=== PATIENT | female | born 1955 | race Caucasian/White ===

== ENCOUNTER 2020-06-26 09:39 | Outpatient (REF) | payer MEDICARE, SELFPAY ==
[2020-06-26 12:04] LABS: Basophils Absolute Auto 0.1 X10*3/uL (0.0-0.2); Basophils Percent Auto 1.1 % (0-2); Imm Gran Abs Auto 0.02 X10*3/uL (0.00-0.03); Imm Gran Pct Auto 0.3 % (0.0-0.4); MANUAL DIFF FLAG SCAN; Monocytes Percent Auto 7.4 % (2-11); Red Blood Count 4.64 X10*6/uL (4.20-5.50); Red Cell Distribution Width 12.9 % (11.0-16.0); SCAN SMEAR FLAG 1
[2020-06-26 12:06] LABS: Eosinophils Absolute Auto 0.8 X10*3/uL (0.0-0.4); Eosinophils Percent Auto 10.8 % (0-4); Hematocrit 40.1 % (37-47); Hemoglobin 13.5 g/dl (12.0-16.0); Lymphocytes Absolute Auto 1.4 X10*3/uL (1.2-4.9); Mean Corpuscular HGB Conc 33.7 g/dl (31.0-35.0); Mean Corpuscular Hemoglobin 29.1 pg (27.0-33.0); Mean Corpuscular Volume 86.4 fL (80-98); Monocytes Absolute Auto 0.6 X10*3/uL (0.1-1.2); Neutrophils Absolute Auto 4.6 X10*3/uL (2.0-8.3); Neutrophils Percent Auto 61.4 % (45-73); PLT CLUMP 1
[2020-06-26 12:15] LABS: PLT ABN DIST 1
[2020-06-26 12:26] LABS: White Blood Count 7.4 X10*3/uL (4.8-10.8)
[2020-06-26 12:29] LABS: SLIDE REVIEW VERIFIED
[2020-06-26 12:36] LABS: Alanine Aminotransferase 120 U/L (0-31); Alkaline Phosphatase 209 U/L (39-117); Anion Gap 13 (12-20); Aspartate Amino Transferase 121 U/L (5-31); Bilirubin Total 0.9 mg/dL (0.0-1.0); Blood Urea Nitrogen 18 mg/dL (9-16); Calcium 9.5 mg/dL (8.4-10.2); Carbon Dioxide 30 mmol/L (22-29); Chloride 100 mmol/L (96-108); Cholesterol 153 mg/dL; Estimated Glomerular Filt Rate > 60; Glucose Fasting 181 mg/dL (60-99); HDL Cholesterol 57 mg/dL; LDL Cholesterol Calculated 83 mg/dl; Potassium 4.2 mmol/l (3.3-5.1); Sodium 139 mmol/L (135-145); Total Protein 7.8 g/dL (6.5-8.0); Triglycerides 66 mg/dL
[2020-06-26 12:50] LABS: Free T4 (Free Thyroxine) 1.34 ng/dL (0.71-1.85); Thyroid Stimulating Hormone 2.54 uIU/mL (0.32-4.0)
[2020-06-26 12:58] LABS: Glucose Urine UA NEG (NEG); Leukocyte Esterase Urine TRACE (NEG); Nitrite Urine NEG (NEG); PH 5.5 (5.0-8.0); Specific Gravity - Urine >= 1.030 (1.005-1.025); Urine Blood NEG (NEG); Urine Ketones NEG (NEG); Urine Protein NEG (NEG-TRACE)
[2020-06-26 13:02] LABS: Appearance Urine CLOUDY; Color Urine YELLOW
[2020-06-26 13:08] LABS: RBC Urine 0-2 /HPF (0)
[2020-06-26 13:09] LABS: Bacteria Urine 1+ /LPF; Mucus Urine 3+ /LPF; Squamous Epithelial Cell Urine 3+ /LPF
[2020-06-26 13:13] LABS: Estimated Average Glucose 151 mg/dL; Hemoglobin A1C 175.1667 umol/L; Hemoglobin A1c % 6.9 %
[2020-06-26 13:18] LABS: Creatinine Urine 220.07 mg/dL; Microalbum/Creatinine Ratio Ur 7.2 ug/mg cr
== END 2020-06-26 09:40 | disposition home or self-care (01) ==
LOC: HO.LAB 09:39
PROVIDERS: PCP Internal Medicine; Visit Provider Internal Medicine Endocrinology, Diabetes & Metabolism
DX: E11.65 Type 2 diabetes mellitus with hyperglycemia (principal); I10 Essential (primary) hypertension; E66.9 Obesity, unspecified; E03.9 Hypothyroidism, unspecified; E78.5 Hyperlipidemia, unspecified; Z79.4 Long term (current) use of insulin
CPT/HCPCS: 36415; 80053; 80061; 81001; 82043; 82947; 83036; 84439; 84443; 85025; 87086; 99212

== ENCOUNTER → 2020-07-07 13:34 | Outpatient (BNVA) | payer MEDICARE, SELFPAY | PROVIDERS: PCP Internal Medicine; Referring Provider Internal Medicine; Visit Provider Nurse Practitioner | DX: R79.89 Other specified abnormal findings of blood chemistry (principal); K59.00 Constipation, unspecified; M54.9 Dorsalgia, unspecified; K21.9 Gastro-esophageal reflux disease without esophagitis; E11.9 Type 2 diabetes mellitus without complications; Z79.899 Other long term (current) drug therapy; Z79.4 Long term (current) use of insulin; Z79.891 Long term (current) use of opiate analgesic | CPT/HCPCS: Q3014 ==

== ENCOUNTER 2020-07-10 10:35 | Outpatient (REF) | payer MEDICARE, SELFPAY ==
--- NOTE | 2020-07-10 10:50 | XR_ITS ---
EXAMINATION: XR THORACIC SPINE XR LUMBAR SPINE CLINICAL INFORMATION: Dorsalgia. COMPARISON: 07/10/2017 x-ray lumbar spine CT abdomen pelvis 01/16/2020. TECHNIQUE: Thoracic spine 3 views. Lumbar spine 3 views. FINDINGS: Thoracic Spine: The upper thoracic vertebral bodies are obscured on the lateral projection by overlapping structures. The visualized thoracic spine, there is normal alignment without subluxation. There is anterior compression deformity of T10 vertebral body. This appears similar as compared to the prior CT of 01/16/2020. No acute fractures otherwise seen. Multilevel moderate disc degenerative changes in the thoracic spine. No focal consolidation the visualized lungs. Lumbar Spine: Stable mild retrolisthesis of L2 on L3.. Vertebral body heights are maintained. No evidence of acute compression deformity. Mild lumbar spondylosis, with endplate osteophytes, with the more prominent changes at T12-L1, L1-L2. XR/XR thoracic spine 2V IMPRESSION: 1. Chronic-appearing compression deformity of T10 vertebral body. 2. Multilevel moderate disc degenerative changes in the thoracic spine. 3. Lumbar spondylosis. No evidence of acute fracture.
--- NOTE | 2020-07-10 10:50 | XR_ITS ---
EXAMINATION: XR THORACIC SPINE XR LUMBAR SPINE CLINICAL INFORMATION: Dorsalgia. COMPARISON: 07/10/2017 x-ray lumbar spine CT abdomen pelvis 01/16/2020. TECHNIQUE: Thoracic spine 3 views. Lumbar spine 3 views. FINDINGS: Thoracic Spine: The upper thoracic vertebral bodies are obscured on the lateral projection by overlapping structures. The visualized thoracic spine, there is normal alignment without subluxation. There is anterior compression deformity of T10 vertebral body. This appears similar as compared to the prior CT of 01/16/2020. No acute fractures otherwise seen. Multilevel moderate disc degenerative changes in the thoracic spine. No focal consolidation the visualized lungs. Lumbar Spine: Stable mild retrolisthesis of L2 on L3.. Vertebral body heights are maintained. No evidence of acute compression deformity. Mild lumbar spondylosis, with endplate osteophytes, with the more prominent changes at T12-L1, L1-L2. XR/XR lumbar spine 2-3V IMPRESSION: 1. Chronic-appearing compression deformity of T10 vertebral body. 2. Multilevel moderate disc degenerative changes in the thoracic spine. 3. Lumbar spondylosis. No evidence of acute fracture.
[2020-07-10 11:55] LABS: Glucose Urine UA NEG (NEG); Leukocyte Esterase Urine NEG (NEG); Nitrite Urine NEG (NEG); Urine Blood NEG (NEG); Urine Ketones NEG (NEG); Urine Protein NEG (NEG-TRACE)
[2020-07-10 12:04] LABS: Appearance Urine CLEAR; Color Urine YELLOW
[2020-07-10 12:30] LABS: RBC Urine 0 /HPF (0); WBC Urine 0-2 /HPF (0-4)
[2020-07-10 12:31] LABS: Bacteria Urine 1+ /LPF; Mucus Urine 1+ /LPF; Squamous Epithelial Cell Urine 2+ /LPF
== END 2020-07-10 10:36 | disposition home or self-care (01) ==
LOC: HO.XRAY 10:35
PROVIDERS: PCP Internal Medicine; Visit Provider Nurse Practitioner
DX: M54.9 Dorsalgia, unspecified (principal); K21.9 Gastro-esophageal reflux disease without esophagitis
CPT/HCPCS: 72070; 72100; 81001

== ENCOUNTER 2020-07-11 11:46 | Emergency (ER) | payer MEDICARE, SELFPAY ==
[2020-07-11 11:57] VITALS: BP 106/74; PULSE 80; RESP 16; TEMP 35.7; O2SAT 99; BMI 32.3
--- NOTE | 2020-07-11 13:18 | ED_ITS ---
HPI - General Adult General Chief complaint: General Medical <JESUS Summers - Last Filed: 07/11/20 16:19> Stated complaint: kidney pain <JESUS Summers - Last Filed: 07/11/20 16:19> Time Seen by Provider: 07/11/20 13:14 <JESUS Summers - Last Filed: 07/11/20 16:19> Source: patient <JESUS Summers - Last Filed: 07/11/20 16:19> Mode of arrival: ambulatory <JESUS Summers - Last Filed: 07/11/20 16:19> History of Present Illness HPI narrative: 64-year-old female with a past medical history of GERD, constipation, elevated LFTs, hyperlipidemia, obesity, osteoarthritis, diabetes, hypertension c/o right-sided abdominal/flank pain x3 days with associated dysuria. Admits pain radiates from abdomen to right flank. Denies fever, chills, nausea/vomiting, constipation/diarrhea, suspicious food intake, recent travel <JESUS Summers - Last Filed: 07/11/20 16:19> Onset (ago): day(s) <JESUS Summers - Last Filed: 07/11/20 16:19> Related Data Home medications: Home Medications Medication Instructions Recorded Confirmed naproxen 500 mg tablet 500 mg PO BID 05/16/20 06/26/20 atorvastatin 20 mg tablet 20 mg PO DAILY 06/26/20 06/26/20 cetirizine 10 mg tablet 10 mg PO DAILY 06/26/20 06/26/20 doxepin 10 mg capsule 0 mg PO 06/26/20 06/26/20 escitalopram oxalate 10 mg tablet 10 mg PO DAILY 06/26/20 06/26/20 fluticasone propionate 50 1 spray INTRANASAL DAILY 06/26/20 06/26/20 mcg/actuation nasal spray,suspension gabapentin 300 mg capsule mg PO BID 06/26/20 06/26/20 hydroxyzine HCl 25 mg tablet mg PO 06/26/20 06/26/20 levothyroxine 150 mcg tablet 150 mcg PO DAILY 06/26/20 06/26/20 omeprazole 20 mg capsule,delayed 20 mg PO DAILY 06/26/20 07/07/20 release pen needle, diabetic 32 gauge x #50 ea 06/26/20 06/26/20/32 tramadol 50 mg tablet 50 mg PO BID PRN 06/26/20 06/26/20 dicyclomine 20 mg tablet 20 mg PO TID 07/07/20 07/07/20 lactulose 20 gram/30 mL oral 20 g PO TID 07/07/20 07/07/20 solution Previous Rx's Medication Instructions Recorded hydrochlorothiazide 25 mg tablet 25 mg PO DAILY 90 Days #90 tab 05/04/20 blood sugar diagnostic #300 ea 05/12/20 lancets 28 gauge #300 ea 05/12/20 diclofenac sodium 1 % topical gel 2 g TOPICAL QID 30 Days #100 g 06/06/20 dulaglutide 0.75 mg/0.5 mL 0.75 mg SUBCUT QWEEK 30 Days #2.5 06/26/20 subcutaneous pen injector ml insulin glargine U-300 conc 300 16 unit SUBCUT DAILY 30 Days #4.5 06/26/20 unit/mL (1.5 mL) subcutaneous pen ml metformin 500 mg tablet 500 mg PO BID 30 Days #60 tab 07/07/20 acetaminophen 650 mg 650 mg PO Q12H PRN 15 Days #30 tab 07/14/20 tablet,extended release carbamide peroxide 6.5 % ear drops 5 drp OTIC (EARS) Q12H 4 Days #15 07/14/20 ml cyclobenzaprine 10 mg tablet 10 mg PO BEDTIME 30 Days #30 tab 07/14/20 <JESUS Summers - Last Filed: 07/11/20 16:19> Allergies/adverse reactions: Allergies Allergy/AdvReac Type Severity Reaction Status Date / Time ciprofloxacin [CIPROFLOXACIN] Allergy Mild HIVES,RASH Verified 07/07/20 13:36 Penicillins [PENICILLINS] Allergy Mild RASH Verified 07/07/20 13:36 cephalexin [From KEFLEX] Allergy Unknown rash Verified 07/07/20 13:36 enalapril [ENALAPRIL] Allergy Unknown Cough Verified 07/07/20 13:36 levothyroxine sodium Allergy Unknown RASH WITH Verified 07/07/20 13:36 [LEVOTHYROXINE SODIUM] GENERIC MED nitrofurantoin Allergy Unknown RASH Verified 07/07/20 13:36 [NITROFURANTOIN] Sulfa (Sulfonamide Allergy Unknown RASH Verified 07/07/20 13:36 Antibiotics) [SULFA (SULFONAMIDE ANTIBIOTICS)] sulfamethoxazole Allergy Unknown rash Verified 07/07/20 13:36 [From BACTRIM] trimethoprim [From BACTRIM] Allergy Unknown rash Verified 07/07/20 13:36 ALL GENERIC MEDS Allergy Unknown UNKNOWN Uncoded 04/13/20 17:19 SHRIMP Allergy Unknown Unknown Uncoded 06/20/20 14:02 <JESUS Summers - Last Filed: 07/11/20 16:19> Review of Systems Review of Systems: Constitutional: No Weight loss, No Fever, No Chills Cardiovascular: No Chest Pain, No SOB Respiratory: No Cough, No Sputum Gastrointestinal: No Nausea, No Vomiting, No Diarrhea, No Constipation, + Abdominal pain Genitourinary: No irregular bleeding, + Dysuria, No Urinary Frequency, No Hematuria, + Flank Pain Musculoskeletal: No joint pain, No Myalgias, No Joint Swelling Skin: No Skin Lesions, No rash <JESUS Summers - Last Filed: 07/11/20 16:19> Yes all other systems are reviewed and are negative <JESUS Summers - Last Filed: 07/11/20 16:19> [facility] Past Medical History Attestation statement: The following information was validated with the patient. <JESUS Summers - Last Filed: 07/11/20 16:19> Medical History: Medical History (Updated 07/15/20 @ 20:56 by Cee Moses NP) Abnormal laboratory test result Diabetes type 2, uncontrolled Dyslipidemia Essential hypertension Hypertension senior living (current) use of insulin Lower back pain Obesity (BMI 30-39.9) <JESUS Summers - Last Filed: 07/11/20 16:19> Surgical History: Surgical History (Updated 07/07/20 @ 13:36 by DOM Perera) H/O thyroidectomy History of bladder surgery History of cholecystectomy History of esophagogastroduodenoscopy (EGD) Hx of colonoscopy <JESUS Summers - Last Filed: 07/11/20 16:19> Family History Family History: Family History (Updated 06/20/20 @ 14:04 by DOM Timmons) Father No problems noted. Mother No problems noted. Sister Lung cancer Brother H/O heart surgery Son Epilepsy <JESUS Summers - Last Filed: 07/11/20 16:19> Social History Social History: Social History (Updated 07/07/20 @ 13:37 by [facility]) Alcohol intake: current Alcohol intake frequency: does not drink Smoking Status: Never smoker <JESUS Summers - Last Filed: 07/11/20 16:19> Physical Exam Vital Signs: Vital Signs: Last Vital Signs Temp 99.7 F 07/11/20 14:11 Pulse 72 07/11/20 15:29 Resp 16 07/11/20 15:29 BP 147/67 H 07/11/20 15:29 Pulse Ox 97 07/11/20 15:29 Body Mass Index 32.3 <JESUS Summers - Last Filed: 07/11/20 16:19> Vital Signs: Last Vital Signs Temp 99.7 F 07/11/20 14:11 Pulse 72 07/11/20 15:29 Resp 16 07/11/20 15:29 BP 147/67 H 07/11/20 15:29 Pulse Ox 97 07/11/20 15:29 Body Mass Index 32.3 <Chapin Lawrence MD - Last Filed: 07/23/20 13:59> Const: General: cooperative and healthy appearing <JESUS Summers - Last Filed: 07/11/20 16:19> Orientation/consciousness: patient oriented x3 <JESUS Summers - Last Filed: 07/11/20 16:19> Limitations: no limitations <JESUS Summers - Last Filed: 07/11/20 16:19> HENMT: Head: Yes normal to inspection <JESUS Summers - Last Filed: 07/11/20 16:19> Ears: hearing grossly normal bilaterally <JESUS Summers - Last Filed: 07/11/20 16:19> General nose exam: Normal external nose present <JESUS Summers - Last Filed: 07/11/20 16:19> Face and sinus: Yes normal facial exam <JESUS Summers - Last Filed: 07/11/20 16:19> Eyes: General: appearance normal, both eyes and all related structures <JESUS Summers - Last Filed: 07/11/20 16:19> EOM: EOMs intact bilaterally <Kaylyn [facility] [place] - Last Filed: 07/11/20 16:19> Neck: Neck: Yes normal visual inspection <Kaylyn [facility] [place] - Last Filed: 07/11/20 16:19> Resp: Effort & Inspection: normal respiratory effort <Kaylyn Andrez, PA - Last Filed: 07/11/20 16:19> Cardio: Rate: regular rate <Kaylyn [facility] [place] - Last Filed: 07/11/20 16:19> GI: Inspection: Yes normal to inspection <Kaylyn [facility] - Last Filed: 07/11/20 16:19> Palpation (GI): Soft to palpation, Tenderness to palpation present (GI) (and lower abdomen ) in the RLQ, in the LUQ and in the RUQ; with no rebound tenderness, no guarding and not rigid <Kaylyn Andrez, PA - Last Filed: 07/11/20 16:19> : General: Yes CVA tenderness bilateral <Kaylyn [facility] [place] - Last Filed: 07/11/20 16:19> Skin: Rashes: no rashes <Kaylyn [facility] [place] - Last Filed: 07/11/20 16:19> Wounds: no wounds <Kaylyn Andrez, PA - Last Filed: 07/11/20 16:19> Neuro: General: patient oriented x3 <Kay[facility] [place] - Last Filed: 07/11/20 16:19> Gait exam (Neuro): Normal gait present <Kaylyn [facility] [place] - Last Filed: 07/11/20 16:19> Extrem: General: Yes normal to inspection <Kaylyn [facility] - Last Filed: 07/11/20 16:19> Course Course Course Narrative: * Labs notable for chronically elevated AST/ALT, otherwise unremarkable, UA negative * Process to identify cause of patient's symptoms. Small foci of air within the urinary bladder from uncertain etiology. > this was discussed with patient with healthcare interpreter. Denies recent or history of catheterization, recent trauma/injury, recent surgery, peeing feces, or sputtering/peeing air > will have patient follow-up with Urology, and GI * Worrisome signs and symptoms and strict return precautions discussed with patient with healthcare interpreter. She verbalized understanding feel safe for discharge home <JESUS Summers - Last Filed: 07/11/20 16:19> I have reviewed the chart <Chapin Lawrence MD - Last Filed: 07/23/20 13:59> Medical Decision Making MDM Narrative Medical decision making narrative: 64-year-old female with a past medical history of GERD, constipation, elevated LFTs, hyperlipidemia, obesity, osteoarthritis, diabetes, hypertension c/o right-sided abdominal/flank pain x3 days with associated dysuria. On exam VSS, NAD/well-appearing, abdomen soft with tenderness in RUQ/RLQ/LUQ and bilateral CVAT. Concern for appendicitis/liver disease vs pancreatitis/renal stone/pyelo vs UTI. Lower concern for diverticulitis Plan: Labs, UA, CT AP, IVF, reassess <JESUS Summers - Last Filed: 07/11/20 16:19> Lab Data Result diagrams: : 07/11/20 13:28 07/11/20 13:28 <JESUS Summers - Last Filed: 07/11/20 16:19> Labs: Lab Results 07/11/20 07/11/20 07/11/20 Range/Units 13:28 13:28 13:28 WBC 7.1 (4.8-10.8) X10*3/uL RBC 4.70 (4.20-5.50) X10*6/uL Hgb 13.6 (12.0-16.0) g/dl Hct 40.2 (37-47) % MCV 85.5 (80-98) fL MCH 28.9 (27.0-33.0) pg MCHC 33.8 (31.0-35.0) g/dl RDW 12.6 (11.0-16.0) % Plt Count 235 (160-400) X10*3/uL MPV 12.8 H (9.4-12.3) fL Immature Gran % (Auto) 0.3 (0.0-0.4) % Neut % (Auto) 48.3 (45-73) % Lymph % (Auto) 36.0 (20-40) % [place] % (Auto) 9.5 (2-11) % Eos % (Auto) 4.8 H (0-4) % Baso % (Auto) 1.1 (0-2) % Lymph # (Auto) 2.6 (1.2-4.9) X10*3/uL [place] # (Auto) 0.7 (0.1-1.2) X10*3/uL Eos # (Auto) 0.3 (0.0-0.4) X10*3/uL Baso # (Auto) 0.1 (0.0-0.2) X10*3/uL Abs Immat Gran (auto) 0.02 (0.00-0.03) X10*3/uL Absolute Neuts (auto) 3.4 (2.0-8.3) X10*3/uL Absolute Nucleated RBC 0.000 (0.0-0.012) X10*3/uL Nucleated RBC % (auto) 0.0 (0.0-0.2) /100WBC Hold Blue Top SEE NOTE Sodium 140 (135-145) mmol/L Potassium 3.9 (3.3-5.1) mmol/l Chloride 101 (96-108) mmol/L Carbon Dioxide 30 H (22-29) mmol/L Anion Gap 13 (12-20) BUN 20 H (9-16) mg/dL Creatinine 0.83 (0.5-1.4) mg/dL Estim Creat Clear Calc 76.6 Estimated GFR > 60 Random Glucose 102 (60-115) mg/dL Calcium 9.2 (8.4-10.2) mg/dL Magnesium (1.6-2.6) mg/dL Total Bilirubin 0.6 (0.0-1.0) mg/dL Direct Bilirubin 0.3 (0.0-0.5) mg/dL AST 66 H (5-31) U/L ALT 62 H (0-31) U/L Alkaline Phosphatase 243 H (39-117) U/L Total Protein 8.2 H (6.5-8.0) g/dL Albumin 4.3 (3.5-5.0) g/dL Lipase 33 (8-78) U/L Urine Color Urine Appearance Urine pH (5.0-8.0) Ur Specific [place] (1.005-1.025) Urine Protein (NEG-TRACE) MG/DL Urine Glucose (UA) (NEG) MG/DL Urine Ketones (NEG) MG/DL Urine Blood (NEG) Urine Nitrite (NEG) Ur Leukocyte Esterase (NEG) SARS-CoV-2 (PCR) (NOT DETECTED) 07/11/20 07/11/20 07/11/20 Range/Units 13:28 13:33 16:44 WBC (4.8-10.8) X10*3/uL RBC (4.20-5.50) X10*6/uL Hgb (12.0-16.0) g/dl Hct (37-47) % MCV (80-98) fL MCH (27.0-33.0) pg MCHC (31.0-35.0) g/dl RDW (11.0-16.0) % Plt Count (160-400) X10*3/uL MPV (9.4-12.3) fL Immature Gran % (Auto) (0.0-0.4) % Neut % (Auto) (45-73) % Lymph % (Auto) (20-40) % [place] % (Auto) (2-11) % Eos % (Auto) (0-4) % Baso % (Auto) (0-2) % Lymph # (Auto) (1.2-4.9) X10*3/uL [place] # (Auto) (0.1-1.2) X10*3/uL Eos # (Auto) (0.0-0.4) X10*3/uL Baso # (Auto) (0.0-0.2) X10*3/uL Abs Immat Gran (auto) (0.00-0.03) X10*3/uL Absolute Neuts (auto) (2.0-8.3) X10*3/uL Absolute Nucleated RBC (0.0-0.012) X10*3/uL Nucleated RBC % (auto) (0.0-0.2) /100WBC Hold Blue Top Sodium (135-145) mmol/L Potassium (3.3-5.1) mmol/l Chloride (96-108) mmol/L Carbon Dioxide (22-29) mmol/L Anion Gap (12-20) BUN (9-16) mg/dL Creatinine (0.5-1.4) mg/dL Estim Creat Clear Calc Estimated GFR Random Glucose (60-115) mg/dL Calcium (8.4-10.2) mg/dL Magnesium 1.8 (1.6-2.6) mg/dL Total Bilirubin (0.0-1.0) mg/dL Direct Bilirubin (0.0-0.5) mg/dL AST (5-31) U/L ALT (0-31) U/L Alkaline Phosphatase (39-117) U/L Total Protein (6.5-8.0) g/dL Albumin (3.5-5.0) g/dL Lipase (8-78) U/L Urine Color YELLOW Urine Appearance CLEAR Urine pH 6.5 (5.0-8.0) Ur Specific [place] 1.015 (1.005-1.025) Urine Protein NEG (NEG-TRACE) MG/DL Urine Glucose (UA) NEG (NEG) MG/DL Urine Ketones NEG (NEG) MG/DL Urine Blood NEG (NEG) Urine Nitrite NEG (NEG) Ur Leukocyte Esterase NEG (NEG) SARS-CoV-2 (PCR) NOT DETECTED (NOT DETECTED) <JESUS Summers - Last Filed: 07/11/20 16:19> Lab Results 07/11/20 07/11/20 07/11/20 Range/Units 13:28 13:28 13:28 WBC 7.1 (4.8-10.8) X10*3/uL RBC 4.70 (4.20-5.50) X10*6/uL Hgb 13.6 (12.0-16.0) g/dl Hct 40.2 (37-47) % MCV 85.5 (80-98) fL MCH 28.9 (27.0-33.0) pg MCHC 33.8 (31.0-35.0) g/dl RDW 12.6 (11.0-16.0) % Plt Count 235 (160-400) X10*3/uL MPV 12.8 H (9.4-12.3) fL Immature Gran % (Auto) 0.3 (0.0-0.4) % Neut % (Auto) 48.3 (45-73) % Lymph % (Auto) 36.0 (20-40) % [place] % (Auto) 9.5 (2-11) % Eos % (Auto) 4.8 H (0-4) % Baso % (Auto) 1.1 (0-2) % Lymph # (Auto) 2.6 (1.2-4.9) X10*3/uL [place] # (Auto) 0.7 (0.1-1.2) X10*3/uL Eos # (Auto) 0.3 (0.0-0.4) X10*3/uL Baso # (Auto) 0.1 (0.0-0.2) X10*3/uL Abs Immat Gran (auto) 0.02 (0.00-0.03) X10*3/uL Absolute Neuts (auto) 3.4 (2.0-8.3) X10*3/uL Absolute Nucleated RBC 0.000 (0.0-0.012) X10*3/uL Nucleated RBC % (auto) 0.0 (0.0-0.2) /100WBC Hold Blue Top SEE NOTE Sodium 140 (135-145) mmol/L Potassium 3.9 (3.3-5.1) mmol/l Chloride 101 (96-108) mmol/L Carbon Dioxide 30 H (22-29) mmol/L Anion Gap 13 (12-20) BUN 20 H (9-16) mg/dL Creatinine 0.83 (0.5-1.4) mg/dL Estim Creat Clear Calc 76.6 Estimated GFR > 60 Random Glucose 102 (60-115) mg/dL Calcium 9.2 (8.4-10.2) mg/dL Magnesium (1.6-2.6) mg/dL Total Bilirubin 0.6 (0.0-1.0) mg/dL Direct Bilirubin 0.3 (0.0-0.5) mg/dL AST 66 H (5-31) U/L ALT 62 H (0-31) U/L Alkaline Phosphatase 243 H (39-117) U/L Total Protein 8.2 H (6.5-8.0) g/dL Albumin 4.3 (3.5-5.0) g/dL Lipase 33 (8-78) U/L Urine Color Urine Appearance Urine pH (5.0-8.0) Ur Specific [place] (1.005-1.025) Urine Protein (NEG-TRACE) MG/DL Urine Glucose (UA) (NEG) MG/DL Urine Ketones (NEG) MG/DL Urine Blood (NEG) Urine Nitrite (NEG) Ur Leukocyte Esterase (NEG) SARS-CoV-2 (PCR) (NOT DETECTED) 07/11/20 07/11/20 07/11/20 Range/Units 13:28 13:33 16:44 WBC (4.8-10.8) X10*3/uL RBC (4.20-5.50) X10*6/uL Hgb (12.0-16.0) g/dl Hct (37-47) % MCV (80-98) fL MCH (27.0-33.0) pg MCHC (31.0-35.0) g/dl RDW (11.0-16.0) % Plt Count (160-400) X10*3/uL MPV (9.4-12.3) fL Immature Gran % (Auto) (0.0-0.4) % Neut % (Auto) (45-73) % Lymph % (Auto) (20-40) % [place] % (Auto) (2-11) % Eos % (Auto) (0-4) % Baso % (Auto) (0-2) % Lymph # (Auto) (1.2-4.9) X10*3/uL [place] # (Auto) (0.1-1.2) X10*3/uL Eos # (Auto) (0.0-0.4) X10*3/uL Baso # (Auto) (0.0-0.2) X10*3/uL Abs Immat Gran (auto) (0.00-0.03) X10*3/uL Absolute Neuts (auto) (2.0-8.3) X10*3/uL Absolute Nucleated RBC (0.0-0.012) X10*3/uL Nucleated RBC % (auto) (0.0-0.2) /100WBC Hold Blue Top Sodium (135-145) mmol/L Potassium (3.3-5.1) mmol/l Chloride (96-108) mmol/L Carbon Dioxide (22-29) mmol/L Anion Gap (12-20) BUN (9-16) mg/dL Creatinine (0.5-1.4) mg/dL Estim Creat Clear Calc Estimated GFR Random Glucose (60-115) mg/dL Calcium (8.4-10.2) mg/dL Magnesium 1.8 (1.6-2.6) mg/dL Total Bilirubin (0.0-1.0) mg/dL Direct Bilirubin (0.0-0.5) mg/dL AST (5-31) U/L ALT (0-31) U/L Alkaline Phosphatase (39-117) U/L Total Protein (6.5-8.0) g/dL Albumin (3.5-5.0) g/dL Lipase (8-78) U/L Urine Color YELLOW Urine Appearance CLEAR Urine pH 6.5 (5.0-8.0) Ur Specific [place] 1.015 (1.005-1.025) Urine Protein NEG (NEG-TRACE) MG/DL Urine Glucose (UA) NEG (NEG) MG/DL Urine Ketones NEG (NEG) MG/DL Urine Blood NEG (NEG) Urine Nitrite NEG (NEG) Ur Leukocyte Esterase NEG (NEG) SARS-CoV-2 (PCR) NOT DETECTED (NOT DETECTED) <Chapin Lawrence MD - Last Filed: 07/23/20 13:59> Discharge Plan Discharge Clinical Impression: Abdominal pain <JESUS Summers - Last Filed: 07/11/20 16:19> Patient Disposition: Home, Self-Care <JESUS Summers - Last Filed: 07/11/20 16:19> Instructions: Abdominal Pain (ED) <JESUS Summers - Last Filed: 07/11/20 16:19> Additional Instructions: Your blood work and urine were reassuring today in the ED. Your CT scan of did not show any acute findings, did show a small focal area of air in her bladder. You need to follow-up with a urologist and GI doctor. If her symptoms persist or worsen, pain becomes unbearable, you are unable to eat or drink, or you develop fever return to the ED Ansari an?lisis de nadine y orina fueron tranquilizadores hoy en el servicio de urgencias. Ansari tomograf?a computarizada de no mostr? joseph?n hallazgo jose, mostr? telma dwain?a ?charo focal de aire en ansari vejiga. Debe hacer un seguimiento con un ur?logo y un m?dico gastrointestinal. Si jose f s?ntomas persisten o empeoran, el dolor se vuelve insoportable, no puede comer ni beber, o tiene fiebre, vuelva al servicio de urgencias <JESUS Summers - Last Filed: 07/11/20 16:19> Prescriptions: No Action hydrochlorothiazide 25 mg tablet 25 mg PO DAILY 90 Days Qty: 90 RF: 4 (DME) FreeStyle Test Strip See Rx Instructions .MEDSUPPLY Qty: 300 RF: 2 (DME) lancets [FreeStyle Lancets] 28 gauge misc See Rx Instructions .ROUTE .MEDSUPPLY Qty: 300 RF: 2 naproxen 500 mg tablet 500 mg PO BID RF: 0 diclofenac sodium 1 % gel 2 g topical QID 30 Days Qty: 100 RF: 4 metformin 500 mg tablet 500 mg PO BID 30 Days Qty: 60 RF: 5 acetaminophen [Arthritis Pain Relief (acetam)] 650 mg tablet extended release 650 mg PO Q12H PRN (Reason: pain) 15 Days Qty: 30 RF: 0 cyclobenzaprine 10 mg tablet 10 mg PO BEDTIME 30 Days Qty: 30 RF: 0 carbamide peroxide [Debrox] 6.5 % drops 5 drp otic (ears) Q12H 4 Days Qty: 15 RF: 0 escitalopram oxalate 10 mg tablet 10 mg PO DAILY RF: 0 (DME) pen needle, diabetic 32 gauge x 5/32 needle See Rx Instructions ea subcut .MEDSUPPLY Qty: 50 RF: 0 atorvastatin 20 mg tablet 20 mg PO DAILY RF: 0 doxepin 10 mg capsule 0 mg PO RF: 0 omeprazole 20 mg capsule,delayed release(DR/EC) 20 mg PO DAILY RF: 0 cetirizine 10 mg tablet 10 mg PO DAILY RF: 0 hydroxyzine HCl 25 mg tablet PO RF: 0 fluticasone propionate 50 mcg/actuation spray,suspension 1 spray intranasal DAILY RF: 0 levothyroxine 150 mcg tablet 150 mcg PO DAILY RF: 0 gabapentin 300 mg capsule PO BID RF: 0 tramadol 50 mg tablet 50 mg PO BID PRN (Reason: pain) RF: 0 Toujeo SoloStar U-300 Insulin 300 unit/mL (1.5 mL) insulin pen 16 unit subcut DAILY 30 Days Qty: 4.5 RF: 1 Trulicity 0.75 mg/0.5 mL pen injector 0.75 mg subcut QWEEK 30 Days Qty: 2.5 RF: 4 lactulose 20 gram/30 mL solution 20 g PO TID RF: 0 dicyclomine 20 mg tablet 20 mg PO TID RF: 0 <JESUS Summers - Last Filed: 07/11/20 16:19> Referrals: Jai Souza MD [Physician] - 1 week Alie Wilson MD [Physician] - 2 days <JESUS Summers - Last Filed: 07/11/20 16:19> Interventions: ED Discharge Assessment Last Done: 07/11/20 16:50 <JESUS Summers - Last Filed: 07/11/20 16:19> Discharge Date/Time: 07/11/20 16:52 <JESUS Summers - Last Filed: 07/11/20 16:19> Print Language: Gabonese <JESUS Summers - Last Filed: 07/11/20 16:19>
--- NOTE | 2020-07-11 13:27 | CT_ITS ---
EXAMINATION: CT ABDOMEN AND PELVIS WITH CONTRAST CLINICAL INFORMATION: Right upper quadrant, right lower quadrant, bilateral flank pain. COMPARISON: 01/16/2020 TECHNIQUE: Multidetector volumetric images were obtained from the superior aspect of the liver through the pubic symphysis following administration 85 mL of Omnipaque 350 intravenous contrast. Sagittal and coronal reformatted images were obtained on the technologist's workstation. Oral contrast: No. This CT examination was performed using dose optimization techniques as appropriate, variously including the following: *Automated exposure control *Adjustment of mA and/or kV according to patient size (this includes techniques or standardized protocols for targeted exams where dose is matched to indication/reason for exam; i.e. extremities or head) *Use of iterative reconstruction technique DLP: 809 mGy-cm FINDINGS: LUNG BASES: The visualized lung bases are unremarkable. The previously seen right lower lobe lung nodule is not included in the [id number]. LIVER, GALLBLADDER, AND BILIARY TREE: The liver is normal in size, shape, and attenuation. No focal hepatic lesion or biliary ductal dilatation is present. Status post cholecystectomy. Pancreas, spleen, adrenal glands appear unremarkable. KIDNEYS AND URETERS: Normal enhancement. Some scarring of the midpole of the right kidney. No renal or ureteral calculi. No hydronephrosis. BLADDER: 2 small foci of air seen within the urinary bladder. This is of uncertain etiology, question recent catheterization. GASTROINTESTINAL TRACT: Stomach is nondistended. The small and large bowel loops appear unremarkable. No evidence of acute inflammatory changes. Appendix is normal. ABDOMINAL WALL: Small fat-containing umbilical hernia. LYMPH NODES: There is a 1.1 cm short axis retroperitoneal lymph node, image 34 series 3, stable from previous. This lymph node measures 1 cm in short axis on the prior CT 06/10/2018. No lymphadenopathy is otherwise identified in the mesentery or retroperitoneum. No pelvic or inguinal lymphadenopathy. VASCULAR: Normal caliber aorta. PELVIC VISCERA: Within normal limits. OSSEOUS STRUCTURES: Stable mild anterior wedging/height loss of T10 vertebral body. CT/CT abdomen pelvis w con IMPRESSION: 1. No acute process identified in the abdomen or pelvis. Cause of patient's symptoms has not been determined. 2. Small foci of air within the urinary bladder, from uncertain etiology. Clinically correlate. Question recent catheterization. 3. There is a 1.1 cm prominent retroperitoneal lymph node. This is nonspecific, stable from the prior CT of 01/16/2020. 4. Status post cholecystectomy.
[2020-07-11 13:29] VITALS: BP 136/61; PULSE 71; RESP 17; O2SAT 98
[2020-07-11 13:39] LABS: Basophils Absolute Auto 0.1 X10*3/uL (0.0-0.2); Basophils Percent Auto 1.1 % (0-2); Eosinophils Absolute Auto 0.3 X10*3/uL (0.0-0.4); Eosinophils Percent Auto 4.8 % (0-4); Hematocrit 40.2 % (37-47); Hemoglobin 13.6 g/dl (12.0-16.0); Imm Gran Abs Auto 0.02 X10*3/uL (0.00-0.03); Imm Gran Pct Auto 0.3 % (0.0-0.4); Lymphocytes Absolute Auto 2.6 X10*3/uL (1.2-4.9); MANUAL DIFF FLAG NO; Mean Corpuscular HGB Conc 33.8 g/dl (31.0-35.0); Mean Corpuscular Hemoglobin 28.9 pg (27.0-33.0); Mean Corpuscular Volume 85.5 fL (80-98); Mean Platelet Volume 12.8 fL (9.4-12.3); Monocytes Absolute Auto 0.7 X10*3/uL (0.1-1.2); Monocytes Percent Auto 9.5 % (2-11); Neutrophils Absolute Auto 3.4 X10*3/uL (2.0-8.3); Neutrophils Percent Auto 48.3 % (45-73); Platelet Count 235 X10*3/uL (160-400); Red Cell Distribution Width 12.6 % (11.0-16.0); White Blood Count 7.1 X10*3/uL (4.8-10.8)
[2020-07-11 13:43] LABS: Glucose Urine UA NEG (NEG); Leukocyte Esterase Urine NEG (NEG); Nitrite Urine NEG (NEG); PH 6.5 (5.0-8.0); Specific Gravity - Urine 1.015 (1.005-1.025); Urine Blood NEG (NEG); Urine Ketones NEG (NEG); Urine Protein NEG (NEG-TRACE)
[2020-07-11 13:44] LABS: Appearance Urine CLEAR; Color Urine YELLOW
[2020-07-11] MEDS: Ketorolac Tromethamine 15 MG/ML VIAL IVPUSH (14:06)
[2020-07-11] MEDS: 0.9 % Sodium Chloride 1,000 ML 999 ML IVCONT (14:06)
[2020-07-11 14:08] LABS: Alanine Aminotransferase 62 U/L (0-31); Albumin Level 4.3 g/dL (3.5-5.0); Alkaline Phosphatase 243 U/L (39-117); Anion Gap 13 (12-20); Aspartate Amino Transferase 66 U/L (5-31); Bilirubin Direct 0.3 mg/dL (0.0-0.5); Bilirubin Total 0.6 mg/dL (0.0-1.0); Blood Urea Nitrogen 20 mg/dL (9-16); Calcium 9.2 mg/dL (8.4-10.2); Carbon Dioxide 30 mmol/L (22-29); Chloride 101 mmol/L (96-108); Creatinine Clr Calc Pharmacy 76.6; Estimated Glomerular Filt Rate > 60; Glucose Random 102 mg/dL (60-115); Lipase 33 U/L (8-78); Potassium 3.9 mmol/l (3.3-5.1); Sodium 140 mmol/L (135-145); Total Protein 8.2 g/dL (6.5-8.0)
[2020-07-11 14:09] LABS: Magnesium 1.8 mg/dL (1.6-2.6)
[2020-07-11 14:11] VITALS: BP 127/70; PULSE 91; RESP 15; TEMP 37.6; O2SAT 100
[2020-07-11] MEDS: iohexoL 350 MG/ML 100 ML INFUS..BTL 85 ML IV (14:33)
[2020-07-11 15:29] VITALS: BP 147/67; PULSE 72; RESP 16; O2SAT 97
--- NOTE | 2020-07-11 15:29 | PC.NURSE ---
pt resting comortably in low fowlers position talking on phone, in no distress., no abd guarding o facial grimace. awaitng ct report.
== END 2020-07-11 16:52 | disposition home or self-care (01) ==
PROVIDERS: Physician Assistant; Emergency Provider Internal Medicine; PCP Internal Medicine
DX: R10.84 Generalized abdominal pain (principal); I10 Essential (primary) hypertension; E11.9 Type 2 diabetes mellitus without complications; Z20.828 Contact with and (suspected) exposure to other viral communicable diseases; Z79.899 Other long term (current) drug therapy
CPT/HCPCS: 36415; 74177; 80048; 80076; 81003; 83690; 83735; 85025; 96361; 96374; 99284; J1885; Q9967; U0003

== ENCOUNTER 2020-08-21 10:04 | Outpatient (REF) | payer MEDICARE, SELFPAY ==
[2020-08-21 10:53] LABS: Hematocrit 38.7 % (37-47)
[2020-08-21 10:55] LABS: Basophils Absolute Auto 0.1 X10*3/uL (0.0-0.2); Basophils Percent Auto 1.1 % (0-2); Eosinophils Absolute Auto 0.4 X10*3/uL (0.0-0.4); Eosinophils Percent Auto 5.4 % (0-4); Hemoglobin 12.9 g/dl (12.0-16.0); Imm Gran Abs Auto 0.01 X10*3/uL (0.00-0.03); Imm Gran Pct Auto 0.1 % (0.0-0.4); Lymphocytes Percent Auto 26.6 % (20-40); Mean Corpuscular HGB Conc 33.3 g/dl (31.0-35.0); Mean Corpuscular Hemoglobin 28.6 pg (27.0-33.0); Mean Corpuscular Volume 85.8 fL (80-98); Mean Platelet Volume 13.3 fL (9.4-12.3); Monocytes Absolute Auto 0.6 X10*3/uL (0.1-1.2); Monocytes Percent Auto 8.2 % (2-11); Neutrophils Absolute Auto 4.4 X10*3/uL (2.0-8.3); Neutrophils Percent Auto 58.6 % (45-73); Platelet Count 199 X10*3/uL (160-400); Red Blood Count 4.51 X10*6/uL (4.20-5.50); Red Cell Distribution Width 12.2 % (11.0-16.0); White Blood Count 7.6 X10*3/uL (4.8-10.8)
[2020-08-21 11:32] LABS: Estimated Average Glucose 151 mg/dL; Hemoglobin A1c % 6.9 %
[2020-08-21 11:58] LABS: Sodium 142 mmol/L (135-145)
[2020-08-21 11:59] LABS: Alanine Aminotransferase 38 U/L (0-31); Alkaline Phosphatase 155 U/L (39-117); Anion Gap 16 (12-20); Aspartate Amino Transferase 39 U/L (5-31); Bilirubin Direct 0.3 mg/dL (0.0-0.5); Bilirubin Total 0.5 mg/dL (0.0-1.0); Blood Urea Nitrogen 20 mg/dL (9-16); Calcium 9.7 mg/dL (8.4-10.2); Carbon Dioxide 28 mmol/L (22-29); Chloride 102 mmol/L (96-108); Estimated Glomerular Filt Rate > 60; Glucose Fasting 102 mg/dL (60-99); Potassium 4.2 mmol/l (3.3-5.1); Total Protein 7.5 g/dL (6.5-8.0)
[2020-08-21 13:58] LABS: Rheumatoid Factor < 15.0 IU/mL (<15.0)
== END 2020-08-21 10:05 | disposition home or self-care (01) ==
LOC: HO.LAB 10:04
PROVIDERS: Nurse Practitioner Family; PCP Internal Medicine; Visit Provider Internal Medicine
DX: I10 Essential (primary) hypertension (principal); R89.9 Unspecified abnormal finding in specimens from other organs, systems and tissues; G89.29 Other chronic pain; M54.5 Low back pain
CPT/HCPCS: 36415; 80053; 80076; 82248; 83036; 85025; 86431

== ENCOUNTER 2020-08-29 11:27 | Emergency (ER) | payer MEDICARE, SELFPAY ==
[2020-08-29 11:42] VITALS: BP 138/74; PULSE 65; RESP 18; TEMP 36.5; O2SAT 96; BMI 38.4
--- NOTE | 2020-08-29 12:17 | CT_ITS ---
EXAMINATION: CT HEAD WITHOUT CONTRAST CT CERVICAL SPINE WITHOUT CONTRAST CLINICAL INFORMATION: Pain for 3 days COMPARISON: CT dated 10/15/2012c TECHNIQUE: Multidetector CT imaging of the head and cervical spine was performed without the use of intravenous contrast. Multiplanar reformats are reviewed. This CT examination was performed using dose optimization techniques as appropriate, variously including the following: *Automated exposure control *Adjustment of mA and/or kV according to patient size (this includes techniques or standardized protocols for targeted exams where dose is matched to indication/reason for exam; i.e. extremities or head) *Use of iterative reconstruction technique DLP: 1362 mGy-cm. FINDINGS: There is no evidence of acute intracranial hemorrhage or territorial infarction. No abnormal mass effect or midline shift is seen. Ritter to white matter differentiation is well preserved. No extra-axial fluid collections are identified. The ventricles are normal in size. There is no abnormal attenuation within the brain parenchyma. The osseous structures and soft tissues are normal. The mastoid air cells and visualized portions of the paranasal sinuses are well-aerated. Atlantooccipital alignment is maintained. The vertebral bodies and posterior elements align normally. No acute fracture or subluxation. Vertebral body heights and intervertebral disc spaces are preserved. Small endplate osteophytes present at C6-C7. The cervicomedullary junction and spinal cord are grossly unremarkable. The paraspinal soft tissues are unremarkable. The imaged lung apices are clear CT/CT head/brain wo con IMPRESSION: No acute intracranial pathology. No cervical spine fracture or malalignment.
--- NOTE | 2020-08-29 12:17 | CT_ITS ---
EXAMINATION: CT HEAD WITHOUT CONTRAST CT CERVICAL SPINE WITHOUT CONTRAST CLINICAL INFORMATION: Pain for 3 days COMPARISON: CT dated 10/15/2012 TECHNIQUE: Multidetector CT imaging of the head and cervical spine was performed without the use of intravenous contrast. Multiplanar reformats are reviewed. This CT examination was performed using dose optimization techniques as appropriate, variously including the following: *Automated exposure control *Adjustment of mA and/or kV according to patient size (this includes techniques or standardized protocols for targeted exams where dose is matched to indication/reason for exam; i.e. extremities or head) *Use of iterative reconstruction technique DLP: 1362 mGy-cm. FINDINGS: There is no evidence of acute intracranial hemorrhage or territorial infarction. No abnormal mass effect or midline shift is seen. Ritter to white matter differentiation is well preserved. No extra-axial fluid collections are identified. The ventricles are normal in size. There is no abnormal attenuation within the brain parenchyma. The osseous structures and soft tissues are normal. The mastoid air cells and visualized portions of the paranasal sinuses are well-aerated. Atlantooccipital alignment is maintained. The vertebral bodies and posterior elements align normally. No acute fracture or subluxation. Vertebral body heights and intervertebral disc spaces are preserved. Small endplate osteophytes present at C6-C7. The cervicomedullary junction and spinal cord are grossly unremarkable. The paraspinal soft tissues are unremarkable. The imaged lung apices are clear CT/CT cervical spine wo con IMPRESSION: No acute intracranial pathology. No cervical spine fracture or malalignment.
--- NOTE | 2020-08-29 12:19 | XR_ITS ---
EXAMINATION: XR SHOULDER, RIGHT CLINICAL INFORMATION: Pain COMPARISON: Previous x-ray most recent July 2012 TECHNIQUE: AP external rotation, Grashey, scapular Y, and axillary views of the right shoulder. FINDINGS: Bone alignment is normal. No fracture or dislocation is seen. The glenohumeral joint is normal. There is a mild arthritis at the acromioclavicular joint. Soft tissues are normal. There are surgical clips projecting over the lower neck. XR/XR shoulder RT min 2V IMPRESSION: Mild arthritis at the acromioclavicular joint.
[2020-08-29] MEDS: Cyclobenzaprine HCl 5 MG TABLET PO (12:50)
[2020-08-29] MEDS: Ketorolac Tromethamine 30 MG/ML VIAL IM (12:51)
[2020-08-29] MEDS: Lidocaine 4 % Patch ADH..PATCH 1 PATCH TRANSDERMA (12:51)
--- NOTE | 2020-08-29 13:06 | ED_ITS ---
HPI - Neck Pain/Injury General Chief Complaint: Neck Pain/Injury Stated Complaint: EAR AND NECK PAIN Time Seen by Provider: 08/29/20 12:08 Source: patient Mode of arrival: ambulatory Limitations: language barrier (Nigerian-speaking) History of Present Illness HPI Narrative: 64yoF c PMHx of osteoarthritis, hypertension, hyperlipidemia, diabetes, hypothyroidism, GERD, and obesity presenting to the ED with complaints of right neck pain radiating to her right ear/right shoulder that has been persistent for the past 3 days. Denies any headaches, dizziness, paresthesias, jaw pain, nausea/vomiting, chest pain, shortness of breath, dyspnea on exertion, orthopnea, palpitations, extremity edema, any symptoms or any other symptoms complaints or concerns at this time. Patient reports she has had this pain in the past and is similar to her prior symptoms. Reports that she had the pain when she was living in [place] and they told her that it was muscular pain and they would give her an injection and she would have symptomatic relief. Related Data Home Medications Medication Instructions Recorded Confirmed atorvastatin 20 mg tablet 20 mg PO DAILY 06/26/20 07/25/20 cetirizine 10 mg tablet 10 mg PO DAILY 06/26/20 07/25/20 escitalopram oxalate 10 mg tablet 10 mg PO DAILY 06/26/20 07/25/20 fluticasone propionate 50 1 spray INTRANASAL DAILY 06/26/20 07/25/20 mcg/actuation nasal spray,suspension gabapentin 300 mg capsule mg PO BID 06/26/20 07/25/20 levothyroxine 150 mcg tablet 150 mcg PO DAILY 06/26/20 07/25/20 pen needle, diabetic 32 gauge x #50 ea 06/26/20 07/25/20 tramadol 50 mg tablet 50 mg PO BID PRN 06/26/20 07/25/20 dicyclomine 20 mg tablet 20 mg PO TID 07/07/20 07/25/20 lactulose 20 gram/30 mL oral 20 g PO TID 07/07/20 07/25/20 solution doxepin 10 mg capsule 10 mg PO BEDTIME cap 07/25/20 07/25/20 hydroxyzine HCl 25 mg tablet mg PO Q8H PRN tab 07/25/20 07/25/20 Previous Rx's Medication Instructions Recorded hydrochlorothiazide 25 mg tablet 25 mg PO DAILY 90 Days #90 tab 05/04/20 blood sugar diagnostic #300 ea 05/12/20 lancets 28 gauge #300 ea 05/12/20 diclofenac sodium 1 % topical gel 2 g TOPICAL QID 30 Days #100 g 06/06/20 dulaglutide 0.75 mg/0.5 mL 0.75 mg SUBCUT QWEEK 30 Days #2.5 06/26/20 subcutaneous pen injector ml metformin 500 mg tablet 500 mg PO BID 30 Days #60 tab 07/07/20 acetaminophen 650 mg 650 mg PO Q12H PRN 15 Days #30 tab 07/14/20 tablet,extended release carbamide peroxide 6.5 % ear drops 5 drp OTIC (EARS) Q12H 4 Days #15 07/14/20 ml cyclobenzaprine 10 mg tablet 10 mg PO BEDTIME 30 Days #30 tab 08/21/20 lidocaine 5 % topical patch 1 patch TOPICAL DAILY PRN 15 Days 08/21/20 #15 ea naproxen 500 mg tablet 500 mg PO BID PRN 10 Days #30 tab 08/21/20 triamcinolone acetonide 0.1 % 1 appl TOPICAL BID 10 Days #15 g 08/21/20 topical cream insulin glargine 100 unit/mL (3 16 unit SUBCUT DAILY 30 Days #15 ml 08/23/20 mL) subcutaneous pen omeprazole 20 mg capsule,delayed 20 mg PO QAM #30 cap 08/27/20 release acetaminophen-codeine 1 tab PO Q8H PRN #10 tab 08/29/20 cyclobenzaprine 10 mg PO TID PRN #10 tab 08/29/20 naproxen 500 mg PO BID PRN #10 tab 08/29/20 Allergies Allergy/AdvReac Type Severity Reaction Status Date / Time ciprofloxacin [CIPROFLOXACIN] Allergy Mild HIVES,RASH Verified 08/29/20 11:45 Penicillins [PENICILLINS] Allergy Mild RASH Verified 08/29/20 11:45 cephalexin [From KEFLEX] Allergy Unknown rash Verified 08/29/20 11:45 enalapril [ENALAPRIL] Allergy Unknown Cough Verified 08/29/20 11:45 levothyroxine sodium Allergy Unknown RASH WITH Verified 08/29/20 11:45 [LEVOTHYROXINE SODIUM] GENERIC MED nitrofurantoin Allergy Unknown RASH Verified 08/29/20 11:45 [NITROFURANTOIN] Sulfa (Sulfonamide Allergy Unknown RASH Verified 08/29/20 11:45 Antibiotics) [SULFA (SULFONAMIDE ANTIBIOTICS)] sulfamethoxazole Allergy Unknown rash Verified 08/29/20 11:45 [From BACTRIM] trimethoprim [From BACTRIM] Allergy Unknown rash Verified 08/29/20 11:45 ALL GENERIC MEDS Allergy Unknown UNKNOWN Uncoded 07/25/20 13:04 SHRIMP Allergy Unknown Unknown Uncoded 07/25/20 13:04 Review of Systems Review of Systems: Constitutional : No trauma, No Weight loss, No Fever, No Chills, ENT/Mouth : No Hearing loss, No Ear Pain, No Nasal Congestion, No Sinus Pain, No Hoarseness, No sore throat, No Rhinorrhea, No Swallowing Difficulty Cardiovascular : No Chest Pain, No SOB Respiratory : No Cough, No Dyspnea Gastrointestinal : No Nausea, No Vomiting, No Diarrhea, No abdominal Pain, No Hematochezia, No Melena Genitourinary : No Dysuria, No Urinary Frequency, No Hematuria, No Urinary or Bowel Incontinence/retention Musculoskeletal : + Neck pain, + Joint pain, No Back pain, No joint stiffness, No joint swelling Skin : No Skin Lesions, No rash or signs of infection Neuro : No Tingling, No Weakness, No radiation, No Numbness, No headache, no loss of bowel or bladder incontinence, no saddle anesthesia Denies history of IV drug usage. Yes all other systems are reviewed and are negative [facility] Past Medical History Attestation statement: The following information was validated with the patient. Medical History Abnormal laboratory test result Acquired hypothyroidism Anxiety Benign essential hypertension Depression Diabetes mellitus Diabetes type 2, uncontrolled Dyslipidemia Essential hypertension GERD without esophagitis Hypertension penitentiary (current) use of insulin Lower back pain Lumbar spondylosis Obesity (BMI 30-39.9) Rash Sacroiliac joint disease Surgical History H/O thyroidectomy History of bladder surgery History of cholecystectomy History of esophagogastroduodenoscopy (EGD) Hx of colonoscopy Family History Family History Father No problems noted. Mother No problems noted. Sister Lung cancer Brother H/O heart surgery Son Epilepsy Social History Social History Alcohol intake: current Alcohol intake frequency: does not drink Smoking Status: Never smoker Advance Directives: No Advance Directives Information Provided: Yes Physical Exam Vital Signs: Vital Signs: Last Vital Signs Temp 97.7 F 08/29/20 11:42 Pulse 65 08/29/20 11:42 Resp 18 08/29/20 11:42 BP 138/74 08/29/20 11:42 Pulse Ox 96 08/29/20 11:42 Body Mass Index 38.4 vital signs have been reviewed as normal and appeared to be correct. Blood pressure normal. Heart rate normal. Respiration rate normal. Temperature normal. Oxygen saturation normal. Appearance: Alert. Oriented X3. No acute distress. Head: Normal external exam. Normocephalic. Atraumatic. Eyes: PERRLA. EOMI. Conjunctiva and sclera normal. Eyelids normal. ENT: Pharynx normal. Uvula midline. Moist mucous membranes. No trismus noted. No drooling noted. No muffled voice noted. Neck: Normal inspection. Neck supple. FROM. No adenopathy. Thyroid Normal. Trachea midline. No meningeal signs. No neck mass noted. Tender to palpation of bilateral paracervical musculature and No mid cervical tenderness. No step- offs or deformities noted. Patient neuro intact bilaterally and distally on all 4 extremities. Reflexes intact bilaterally and distally in all 4 extremities. No rashes/lesion/induration/fluctuance or signs of infection noted. No edema noted. CVS: Normal heart rate and rhythm. Heart sound normal. No murmurs noted. Pulses normal throughout. Respiratory: No respiratory distress. Painless inspiration. Breath sounds normal. No wheezes/rales/rhonchi noted. Chest nontender. No accessory muscle usage noted or decreased air movement noted. Back: Full range of motion noted. No obvious deformities, or edema. Full ROM in back and lower extremities. Skin: Skin warm and dry. Normal skin color. Normal skin turgor. No rashes/lesions/lacerations noted. Extremities: Patient with tenderness to palpation with muscle spasm to right shoulder joint at the AC. No laxity noted. No obvious deformities noted. Patient has full range of motion noted. Otherwise all other Extremities exhibit normal range of motiona and nontender. Neuro: Oriented X 3. No motor deficit. No sensory deficit. Reflexes normal. Moving all extremities. No focal motor deficits. Cranial nerves II-XI intact bilaterally. Facial strength normal. Normal cognition. Speech normal. Gait normal. Strength 5/5 throughout. No pronator drift. No tremor noted. No fasciculations noted. No rigidity noted. Muscle tone normal throughout. No asterixis noted. [id number] test normal. Heel to martinez test normal. Tandem gait normal. Does not sway with eyes open. Romberg test negative. Rapid alternating movement upper extremity normal. Rapid alternating movement lower extremity normal. Hand drop from overhead Misses face. NIHSS score 0. Course Course Course Narrative: Pt c likely muscular pain, but could be herniated disc. Neuro exam shows no deficits. Not c/w vascular etiology, perivertebral / other soft tissue neck / airway infection, or spinal fx / process. CT scan of brain/cervical spine and x-ray of right shoulder obtained and revealed chronic changes such as arthritis/degenerative changes otherwise no acute processes noted. Otherwise no other imaging or labs indicated at this time as patient denies any other symptoms. DC c meds and f/u patient understands agrees with this plan. MDM - Neck Pain/Injury Medical Records Attestation: I reviewed the patient's medical records. Lab Data Attestation: I reviewed the patient's lab results. Imaging Data CT scan of brain/cervical spine: Attestation: I personally reviewed and interpreted this imaging study as follows: Radiologist's impression: FINDINGS: There is no evidence of acute intracranial hemorrhage or territorial infarction. No abnormal mass effect or midline shift is seen. Ritter to white matter differentiation is well preserved. No extra-axial fluid collections are identified. The ventricles are normal in size. There is no abnormal attenuation within the brain parenchyma. The osseous structures and soft tissues are normal. The mastoid air cells and visualized portions of the paranasal sinuses are well-aerated. Atlantooccipital alignment is maintained. The vertebral bodies and posterior elements align normally. No acute fracture or subluxation. Vertebral body heights and intervertebral disc spaces are preserved. Small endplate osteophytes present at C6-C7. The cervicomedullary junction and spinal cord are grossly unremarkable. The paraspinal soft tissues are unremarkable. The imaged lung apices are clear CT/CT head/brain wo con IMPRESSION: No acute intracranial pathology. No cervical spine fracture or malalignment. Right shoulder x-ray: Attestation: I personally reviewed and interpreted this imaging study as follows: Radiologist's impression: FINDINGS: Bone alignment is normal. No fracture or dislocation is seen. The glenohumeral joint is normal. There is a mild arthritis at the acromioclavicular joint. Soft tissues are normal. There are surgical clips projecting over the lower neck. XR/XR shoulder RT min 2V IMPRESSION: Mild arthritis at the acromioclavicular joint. Discharge Plan Discharge Clinical Impression: AC (acromioclavicular) joint arthritis, Cervical osteophyte Patient Disposition: Home, Self-Care Instructions: Arthritis (ED) Prescriptions: New cyclobenzaprine 10 mg tablet 10 mg PO TID PRN (Reason: muscle spasm) Qty: 10 RF: 0 acetaminophen-codeine 300-30 mg tablet 1 tab PO Q8H PRN (Reason: pain) Qty: 10 RF: 0 naproxen 500 mg tablet 500 mg PO BID PRN (Reason: pain) Qty: 10 RF: 0 No Action hydrochlorothiazide 25 mg tablet 25 mg PO DAILY 90 Days Qty: 90 RF: 4 (DME) FreeStyle Test Strip See Rx Instructions .MEDSUPPLY Qty: 300 RF: 2 (DME) lancets [FreeStyle Lancets] 28 gauge misc See Rx Instructions .ROUTE .MEDSUPPLY Qty: 300 RF: 2 diclofenac sodium 1 % gel 2 g topical QID 30 Days Qty: 100 RF: 4 metformin 500 mg tablet 500 mg PO BID 30 Days Qty: 60 RF: 5 cyclobenzaprine 10 mg tablet 10 mg PO BEDTIME 30 Days Qty: 30 RF: 0 Lantus Solostar U-100 Insulin 100 unit/mL (3 mL) insulin pen 16 unit subcut DAILY 30 Days Qty: 15 RF: 3 omeprazole 20 mg capsule,delayed release(DR/EC) 20 mg PO QAM Qty: 30 RF: 5 acetaminophen [Arthritis Pain Relief (acetam)] 650 mg tablet extended release 650 mg PO Q12H PRN (Reason: pain) 15 Days Qty: 30 RF: 0 carbamide peroxide [Debrox] 6.5 % drops 5 drp otic (ears) Q12H 4 Days Qty: 15 RF: 0 naproxen 500 mg tablet 500 mg PO BID PRN (Reason: pain) 10 Days Qty: 30 RF: 0 lidocaine 5 % adhesive patch,medicated 1 patch topical DAILY PRN (Reason: pain (scale score 7-10)) 15 Days Qty: 15 RF: 0 triamcinolone acetonide 0.1 % cream 1 appl topical BID 10 Days Qty: 15 RF: 0 escitalopram oxalate 10 mg tablet 10 mg PO DAILY RF: 0 (DME) pen needle, diabetic 32 gauge x 5/32 needle See Rx Instructions ea subcut .MEDSUPPLY Qty: 50 RF: 0 atorvastatin 20 mg tablet 20 mg PO DAILY RF: 0 cetirizine 10 mg tablet 10 mg PO DAILY RF: 0 fluticasone propionate 50 mcg/actuation spray,suspension 1 spray intranasal DAILY RF: 0 levothyroxine 150 mcg tablet 150 mcg PO DAILY RF: 0 gabapentin 300 mg capsule PO BID RF: 0 tramadol 50 mg tablet 50 mg PO BID PRN (Reason: pain) RF: 0 Trulicity 0.75 mg/0.5 mL pen injector 0.75 mg subcut QWEEK 30 Days Qty: 2.5 RF: 4 doxepin 10 mg capsule 10 mg PO BEDTIME RF: 0 hydroxyzine HCl 25 mg tablet PO Q8H PRN (Reason: anxiety) RF: 0 lactulose 20 gram/30 mL solution 20 g PO TID RF: 0 dicyclomine 20 mg tablet 20 mg PO TID RF: 0 Referrals: Yael Alex MD [Primary Care Provider] - 2 days Print Language: Nigerian
== END 2020-08-29 13:49 | disposition home or self-care (01) ==
PROVIDERS: Emergency Provider Emergency Medicine; PCP Internal Medicine
DX: M19.011 Primary osteoarthritis, right shoulder (principal); M25.711 Osteophyte, right shoulder; I10 Essential (primary) hypertension; E11.9 Type 2 diabetes mellitus without complications; Z79.4 Long term (current) use of insulin
CPT/HCPCS: 70450; 72125; 73030; 96372; 99283; 99284; J1885

== ENCOUNTER 2020-09-21 08:48 | Outpatient (REF) | payer MEDICARE, SELFPAY ==
[2020-09-22 08:58] LABS: BV Int Neg Control Negative (Negative); BV Int Pos Control Positive (Positive)
[2020-09-26 17:37] LABS: HPV mRNA E6/E7 rflx Not Detected (Not Detected)
== END 2020-09-21 08:49 | disposition home or self-care (01) ==
LOC: HO.LAB 08:48
PROVIDERS: PCP Physician Assistant; Visit Provider Advanced Practice Midwife
DX: Z01.411 Encounter for gynecological examination (general) (routine) with abnormal findings (principal); Z11.51 Encounter for screening for human papillomavirus (HPV); N89.8 Other specified noninflammatory disorders of vagina
CPT/HCPCS: 36415; 87480; 87510; 87624; 87660; 88142

== ENCOUNTER → 2020-09-27 07:51 | Outpatient (BNVA) | payer MEDICARE, SELFPAY | PROVIDERS: Visit Provider Orthopaedic Surgery | DX: M75.41 Impingement syndrome of right shoulder (principal) | CPT/HCPCS: 20610; 99202; J1040 ==

== ENCOUNTER → 2020-10-10 09:38 | Outpatient (BNVA) | payer MEDICARE, SELFPAY | PROVIDERS: Visit Provider Obstetrics & Gynecology ==

== ENCOUNTER → 2020-11-01 14:08 | Outpatient (BNVA) | payer MEDICARE, SELFPAY | PROVIDERS: Visit Provider Obstetrics & Gynecology | DX: L90.0 Lichen sclerosus et atrophicus (principal) | CPT/HCPCS: 99212 ==

== ENCOUNTER 2020-11-27 14:04 | Emergency (ER) | payer MEDICARE, SELFPAY ==
[2020-11-27 14:15] VITALS: BP 144/49; PULSE 74; RESP 18; TEMP 36.1; O2SAT 100; BMI 31.3
[2020-11-27] MEDS: Ketorolac Tromethamine 30 MG/ML VIAL IM (17:20)
--- NOTE | 2020-11-27 17:30 | ED_ITS ---
HPI - Extremity Problem General Chief complaint: Extremity Problem Stated complaint: R SHOULDER AND ARM PAIN Time Seen by Provider: 11/27/20 16:12 Source: patient Mode of arrival: ambulatory Limitations: no limitations History of Present Illness HPI Narrative: Patient presents to ED for chronic right shoulder pain radiating down right arm. Patient denies any pain from shoulder pain to the chest, shortness of breath, or any recent trauma. Patient denies any right upper extremity swelling, redness coolness, nauseous or hotness. Patient denies any paralysis. MD Complaint: extremity pain (Right shoulder) Related Data Home Medications Medication Instructions Recorded Confirmed atorvastatin 20 mg tablet 20 mg PO DAILY 06/26/20 10/23/20 cetirizine 10 mg tablet 10 mg PO DAILY 06/26/20 10/23/20 escitalopram oxalate 10 mg tablet 10 mg PO DAILY 06/26/20 10/23/20 fluticasone propionate 50 1 spray INTRANASAL DAILY 06/26/20 10/23/20 mcg/actuation nasal spray,suspension gabapentin 300 mg capsule mg PO BID 06/26/20 10/23/20 levothyroxine 150 mcg tablet 150 mcg PO DAILY 06/26/20 10/23/20 dicyclomine 20 mg tablet 20 mg PO TID 07/07/20 10/23/20 lactulose 20 gram/30 mL oral 20 g PO TID 07/07/20 10/23/20 solution doxepin 10 mg capsule 10 mg PO BEDTIME cap 07/25/20 10/23/20 hydroxyzine HCl 25 mg tablet mg PO Q8H PRN tab 07/25/20 10/23/20 Previous Rx's Medication Instructions Recorded hydrochlorothiazide 25 mg tablet 25 mg PO DAILY 90 Days #90 tab 05/04/20 lancets 28 gauge #300 ea 05/12/20 acetaminophen 650 mg 650 mg PO Q12H PRN 15 Days #30 tab 07/14/20 tablet,extended release carbamide peroxide 6.5 % ear drops 5 drp OTIC (EARS) Q12H 4 Days #15 07/14/20 ml lidocaine 5 % topical patch 1 patch TOPICAL DAILY PRN 15 Days 08/21/20 #15 ea triamcinolone acetonide 0.1 % 1 appl TOPICAL BID 10 Days #15 g 08/21/20 topical cream omeprazole 20 mg capsule,delayed 20 mg PO QAM #30 cap 08/27/20 release acetaminophen-codeine 1 tab PO Q8H PRN #10 tab 08/29/20 naproxen 500 mg PO BID PRN #10 tab 08/29/20 dulaglutide 0.75 mg/0.5 mL 0.75 mg SUBCUT QWEEK 30 Days #2.5 09/01/20 subcutaneous pen injector ml hydrocortisone 1 % topical cream 1 appl TOPICAL BID PRN 14 Days 09/01/20 #28.35 g insulin glargine 100 unit/mL (3 16 unit SUBCUT DAILY 30 Days #15 ml 09/01/20 mL) subcutaneous pen metformin 500 mg tablet 500 mg PO BID 30 Days #60 tab 09/01/20 alcohol swabs 1 pad TOPICAL .COMPLEX #200 pad 10/03/20 pen needle, diabetic 32 gauge x 1 ea SUBCUT DAILY #30 ea 10/03/20 blood sugar diagnostic 1 strip MISCELLANEOUS TID 90 Days 10/31/20 #300 strip diclofenac sodium 1 % topical gel 2 g TOPICAL QID 30 Days #100 g 10/31/20 clobetasol 0.05 % topical ointment 1 appl TOPICAL DAILY #45 g 11/01/20 cyclobenzaprine 10 mg tablet 10 mg PO BEDTIME #30 tab 11/21/20 tramadol 50 mg tablet See Rx Instructions .ROUTE 11/22/20 .COMPLEX PRN 7 Days #14 tab oxycodone-acetaminophen [Percocet] 1 tab PO TID PRN #9 tab 11/27/20 Allergies Allergy/AdvReac Type Severity Reaction Status Date / Time ciprofloxacin [CIPROFLOXACIN] Allergy Mild HIVES,RASH Verified 11/01/20 14:27 Penicillins [PENICILLINS] Allergy Mild RASH Verified 11/01/20 14:27 cephalexin [From KEFLEX] Allergy Unknown rash Verified 11/01/20 14:27 enalapril [ENALAPRIL] Allergy Unknown Cough Verified 11/01/20 14:27 levothyroxine sodium Allergy Unknown RASH WITH Verified 11/01/20 14:27 [LEVOTHYROXINE SODIUM] GENERIC MED nitrofurantoin Allergy Unknown RASH Verified 11/01/20 14:27 [NITROFURANTOIN] Sulfa (Sulfonamide Allergy Unknown RASH Verified 11/01/20 14:27 Antibiotics) [SULFA (SULFONAMIDE ANTIBIOTICS)] sulfamethoxazole Allergy Unknown rash Verified 11/01/20 14:27 [From BACTRIM] trimethoprim [From BACTRIM] Allergy Unknown rash Verified 11/01/20 14:27 ALL GENERIC MEDS Allergy Unknown UNKNOWN Uncoded 11/01/20 14:27 SHRIMP Allergy Unknown Unknown Uncoded 11/01/20 14:27 Review of Systems Review of Systems: Yes all other systems are reviewed and are negative Constitutional: Constitutional: Reports as per HPI and Reports no additional constitutional complaints Eyes: Eyes: Reports as per HPI and Reports no additional eye complaints ENT: Reports system reviewed and no additional complaints, except as documented and Reports as per HPI Cardiovascular: Cardiovascular: Reports as per HPI and Reports no additional cardiovascular complaints Respiratory: Respiratory: Reports as per HPI and Reports no additional respiratory complaints Gastrointestinal: Gastrointestinal: Reports as per HPI and Reports no additional gastrointestinal complaints Genitourinary: Genitourinary: Reports no additional female genitourinary complaints and Reports as per HPI Musculoskeletal: Musculoskeletal: Reports no additional musculoskeletal complaints, Reports as per HPI and Reports arthralgias (Right shoulder pain) Neurologic: Reports system reviewed and no additional complaints, except as documented and Reports as per HPI Psychiatric: Psychiatric: Reports no additional psychiatric complaints and Reports as per HPI [facility] Past Medical History Medical History Abnormal laboratory test result Acquired hypothyroidism Anxiety Benign essential hypertension Depression Diabetes mellitus Diabetes type 2, uncontrolled Dyslipidemia Essential hypertension GERD without esophagitis Hypertension [employer] (current) use of insulin Lower back pain Lumbar spondylosis Obesity (BMI 30-39.9) Rash Right arm pain Sacroiliac joint disease Surgical History H/O thyroidectomy History of bladder surgery History of cholecystectomy History of esophagogastroduodenoscopy (EGD) Hx of colonoscopy Family History Family History Father No problems noted. Mother No problems noted. Sister Lung cancer Brother H/O heart surgery Son Epilepsy Social History Social History (Updated 11/01/20 @ 14:28 by DOM Dias) Alcohol intake: current Alcohol intake frequency: does not drink Smoking Status: Never smoker Advance Directives: No Advance Directives Information Provided: No Gender identity: female Physical Exam Vital Signs: Vital Signs: Last Vital Signs Temp 96.9 F 11/27/20 14:15 Pulse 67 11/27/20 17:58 Resp 17 11/27/20 17:58 BP 154/78 H 11/27/20 17:58 Pulse Ox 97 11/27/20 17:58 Body Mass Index 31.3 Const: General: cooperative, healthy appearing, comfortable, no acute distress, well developed, alert and awake Orientation/consciousness: patient oriented x3 HENMT: Head: Yes normal to inspection, Yes No palpable skull fracture present, Yes normocephalic and Yes atraumatic Eyes: General: appearance normal, both eyes and all related structures Neck: Neck: Yes normal visual inspection, Yes full ROM, Yes no lymphadenopat hy, Yes no meningeal signs, Yes trachea midline, Yes supple and No tender Chest: Chest palpation & inspection: normal inspection of the chest and normal palpation of entire chest wall Resp: Effort & Inspection: normal respiratory effort and able to speak in complete sentences Auscultation: clear to auscultation bilaterally Cardio: Jugular venous distension: no JVD Heart sounds: S1 normal heart sound present and S2 normal heart sound present GI: Inspection: Yes normal to inspection and No abdominal wall ecchymosis Palpation (GI): not firm, nontender, no guarding and not rigid : General: No CVA tenderness and Yes no CVA tenderness Back/Spine/Pelvis: Back: no CVA tenderness, No CVA tenderness and No back tenderness Neuro: General: patient oriented x3, no meningeal signs and CN's II-XI intact bilaterally Cranial nerves: Yes CN's II-XII intact bilaterally Extrem: Other: Right upper extremity: Shoulder positive for pain on range of motion and on palpation. Negative for swelling of right upper extremity. Negative for any redness, mass, hotness, coldness of right upper extremity. Capillary refills intact. Neuro/motor exam intact right upper extremity. Vascular exam intact of right upper extremity. For extremities normal. Motor/neuro/vascular exam is intact Course Course Course Narrative: Shoulder pain no need for repeat x-rays. Patient denies any recent trauma. No indication for ultrasound not suspecting DVT. Reevaluation(s) Reevaluation #1: Shoulder arthritis. Patient informed she should follow-up with her PCP for referral to Orthopedics for physical therapy. Discharge Plan Discharge Clinical Impression: Osteoarthritis (arthritis due to wear and tear of joints), Rotator cuff impingement syndrome of right shoulder Patient Disposition: Home, Self-Care Instructions: Arthritis (ED) Additional Instructions: Regrese al servicio de urgencias de inmediato si empeora el dolor de hombro, hinchaz?n de la extremidad superior, enrojecimiento, calor, frialdad de la extremidad superior, decoloraci?n azulada de las yemas de los dedos, dolor en el pecho, dificultad para respirar, tos con nadine o cualquier otro s?ntoma preocupante. Prescriptions: New oxycodone-acetaminophen [Percocet] 5-325 mg tablet 1 tab PO TID PRN (Reason: pain) Qty: 9 RF: 0 No Action hydrochlorothiazide 25 mg tablet 25 mg PO DAILY 90 Days Qty: 90 RF: 4 (DME) lancets [FreeStyle Lancets] 28 gauge misc See Rx Instructions .ROUTE .MEDSUPPLY Qty: 300 RF: 2 omeprazole 20 mg capsule,delayed release(DR/EC) 20 mg PO QAM Qty: 30 RF: 5 metformin 500 mg tablet 500 mg PO BID 30 Days Qty: 60 RF: 5 Lantus Solostar U-100 Insulin 100 unit/mL (3 mL) insulin pen 16 unit subcut DAILY 30 Days Qty: 15 RF: 3 Trulicity 0.75 mg/0.5 mL pen injector 0.75 mg subcut QWEEK 30 Days Qty: 2.5 RF: 4 hydrocortisone [Anti-Itch (HC)] 1 % cream 1 appl topical BID PRN (Reason: skin irritation) 14 Days Qty: 28.35 RF: 1 pen needle, diabetic [BD Ultra-Fine Aarti Pen Needle] 32 gauge x 5/32 needle 1 ea subcut DAILY Qty: 30 RF: 6 alcohol swabs [Alcohol Pads] Pads, Medicated 1 pad topical .COMPLEX Qty: 200 RF: 6 diclofenac sodium 1 % gel 2 g topical QID 30 Days Qty: 100 RF: 4 blood sugar diagnostic [FreeStyle Lite Strips] Strip 1 strip miscellaneous TID 90 Days Qty: 300 RF: 2 cyclobenzaprine 10 mg tablet 10 mg PO BEDTIME Qty: 30 RF: 0 tramadol 50 mg tablet See Rx Instructions .ROUTE .COMPLEX PRN (Reason: pain) 7 Days Qty: 14 RF: 0 acetaminophen-codeine 300-30 mg tablet 1 tab PO Q8H PRN (Reason: pain) Qty: 10 RF: 0 naproxen 500 mg tablet 500 mg PO BID PRN (Reason: pain) Qty: 10 RF: 0 acetaminophen [Arthritis Pain Relief (acetam)] 650 mg tablet extended release 650 mg PO Q12H PRN (Reason: pain) 15 Days Qty: 30 RF: 0 carbamide peroxide [Debrox] 6.5 % drops 5 drp otic (ears) Q12H 4 Days Qty: 15 RF: 0 lidocaine 5 % adhesive patch,medicated 1 patch topical DAILY PRN (Reason: pain (scale score 7-10)) 15 Days Qty: 15 RF: 0 triamcinolone acetonide 0.1 % cream 1 appl topical BID 10 Days Qty: 15 RF: 0 escitalopram oxalate 10 mg tablet 10 mg PO DAILY RF: 0 atorvastatin 20 mg tablet 20 mg PO DAILY RF: 0 cetirizine 10 mg tablet 10 mg PO DAILY RF: 0 fluticasone propionate 50 mcg/actuation spray,suspension 1 spray intranasal DAILY RF: 0 levothyroxine 150 mcg tablet 150 mcg PO DAILY RF: 0 gabapentin 300 mg capsule PO BID RF: 0 doxepin 10 mg capsule 10 mg PO BEDTIME RF: 0 hydroxyzine HCl 25 mg tablet PO Q8H PRN (Reason: anxiety) RF: 0 lactulose 20 gram/30 mL solution 20 g PO TID RF: 0 dicyclomine 20 mg tablet 20 mg PO TID RF: 0 clobetasol 0.05 % ointment 1 appl topical DAILY Qty: 45 RF: 11 Referrals: Bruce Salazar PA-C [Physician [employer] Specialist] - 2 days (Right shoulder arthritis/rotator cuff impingement) Yael Alex MD [Primary Care Provider] - 2 days (Please refer to orthopedics for steroid injection if necessary. Also referred to physical therapy.) Interventions: ED Discharge Assessment Last Done: 11/27/20 18:05 Discharge Date/Time: 11/27/20 18:05 Print Language: Lao
[2020-11-27 17:58] VITALS: BP 154/78; PULSE 67; RESP 17; O2SAT 97
== END 2020-11-27 18:05 | disposition home or self-care (01) ==
PROVIDERS: Emergency Provider Internal Medicine; PCP Internal Medicine
DX: M19.011 Primary osteoarthritis, right shoulder (principal); M75.41 Impingement syndrome of right shoulder; M25.511 Pain in right shoulder; E11.9 Type 2 diabetes mellitus without complications; I10 Essential (primary) hypertension; E78.5 Hyperlipidemia, unspecified; Z79.02 Long term (current) use of antithrombotics/antiplatelets; Z79.899 Other long term (current) drug therapy
CPT/HCPCS: 96372; 99284; J1885

== ENCOUNTER → 2020-12-15 10:37 | Outpatient (BNVA) | payer MEDICARE, SELFPAY | PROVIDERS: PCP Internal Medicine; Visit Provider Internal Medicine Endocrinology, Diabetes & Metabolism | DX: E11.65 Type 2 diabetes mellitus with hyperglycemia (principal); I10 Essential (primary) hypertension; E78.5 Hyperlipidemia, unspecified; E66.9 Obesity, unspecified; Z79.4 Long term (current) use of insulin | CPT/HCPCS: 82947; 99212 ==

== ENCOUNTER → 2020-12-19 10:27 | Outpatient (BNVA) | payer MEDICARE, SELFPAY | PROVIDERS: Visit Provider Orthopaedic Surgery | DX: M75.41 Impingement syndrome of right shoulder (principal) | CPT/HCPCS: 20610; 99212; J1040 ==

== ENCOUNTER 2021-01-07 10:26 | Emergency (ER) | payer MEDICARE, SELFPAY ==
[2021-01-07 11:15] VITALS: BP 145/62; PULSE 70; RESP 18; TEMP 36.5; O2SAT 99; BMI 32.3
--- NOTE | 2021-01-07 11:20 | ED_ITS ---
HPI - Extremity Problem General Chief complaint: Extremity Problem Stated complaint: shoulder pain, arm pain Time Seen by Provider: 01/07/21 11:20 History of Present Illness HPI Narrative: Patient complains of pain for the last 5 months in the right arm worst in the shoulder and radiating down all the way to the fingers with some tingling but no numbness no weakness no recent injury Related Data Home Medications Medication Instructions Recorded Confirmed cetirizine 10 mg tablet 10 mg PO DAILY 06/26/20 12/15/20 escitalopram oxalate 10 mg tablet 10 mg PO DAILY 06/26/20 12/15/20 fluticasone propionate 50 1 spray INTRANASAL DAILY 06/26/20 12/15/20 mcg/actuation nasal spray,suspension levothyroxine 150 mcg tablet 150 mcg PO DAILY 06/26/20 12/15/20 dicyclomine 20 mg tablet 20 mg PO TID 07/07/20 12/15/20 lactulose 20 gram/30 mL oral 20 g PO TID 07/07/20 12/15/20 solution doxepin 10 mg capsule 10 mg PO BEDTIME cap 07/25/20 12/15/20 gabapentin 300 mg capsule 300 mg PO BID cap 12/15/20 12/15/20 hydroxyzine HCl 25 mg tablet 25 mg PO Q8H PRN tab 12/15/20 12/15/20 mirabegron 25 mg tablet,extended 25 mg PO DAILY 12/15/20 12/15/20 release 24 hr Previous Rx's Medication Instructions Recorded hydrochlorothiazide 25 mg tablet 25 mg PO DAILY 90 Days #90 tab 05/04/20 acetaminophen 650 mg 650 mg PO Q12H PRN 15 Days #30 tab 07/14/20 tablet,extended release carbamide peroxide 6.5 % ear drops 5 drp OTIC (EARS) Q12H 4 Days #15 07/14/20 ml lidocaine 5 % topical patch 1 patch TOPICAL DAILY PRN 15 Days 08/21/20 #15 ea triamcinolone acetonide 0.1 % 1 appl TOPICAL BID 10 Days #15 g 08/21/20 topical cream omeprazole 20 mg capsule,delayed 20 mg PO QAM #30 cap 08/27/20 release acetaminophen-codeine 1 tab PO Q8H PRN #10 tab 08/29/20 naproxen 500 mg PO BID PRN #10 tab 08/29/20 hydrocortisone 1 % topical cream 1 appl TOPICAL BID PRN 14 Days 09/01/20 #28.35 g pen needle, diabetic 32 gauge x 1 ea SUBCUT DAILY #30 ea 10/03/20 diclofenac sodium 1 % topical gel 2 g TOPICAL QID 30 Days #100 g 10/31/20 clobetasol 0.05 % topical ointment 1 appl TOPICAL DAILY #45 g 11/01/20 tramadol 50 mg tablet See Rx Instructions .ROUTE 11/22/20 .COMPLEX PRN 7 Days #14 tab oxycodone-acetaminophen [Percocet] 1 tab PO TID PRN #9 tab 11/27/20 alcohol swabs 1 pad TOPICAL .COMPLEX #200 pad 12/15/20 atorvastatin 20 mg tablet 20 mg PO DAILY 90 Days #90 tab 12/15/20 blood sugar diagnostic 1 strip MISCELLANEOUS TID 90 Days 12/15/20 #300 strip dulaglutide 0.75 mg/0.5 mL 0.75 mg SUBCUT QWEEK 30 Days #2.5 12/15/20 subcutaneous pen injector ml insulin glargine 100 unit/mL (3 12 unit SUBCUT DAILY 30 Days #15 ml 12/15/20 mL) subcutaneous pen lancets 28 gauge #300 ea 12/15/20 metformin 500 mg tablet 1,000 mg PO BID 30 Days #120 tab 12/15/20 cyclobenzaprine 10 mg tablet 10 mg PO BEDTIME #30 tab 12/24/20 oxycodone 5 mg PO Q6H PRN #10 tab 01/07/21 Allergies Allergy/AdvReac Type Severity Reaction Status Date / Time ciprofloxacin [CIPROFLOXACIN] Allergy Mild HIVES,RASH Verified 12/10/20 21:42 Penicillins [PENICILLINS] Allergy Mild RASH Verified 12/10/20 21:42 cephalexin [From KEFLEX] Allergy Unknown rash Verified 12/10/20 21:42 enalapril [ENALAPRIL] Allergy Unknown Cough Verified 12/10/20 21:42 levothyroxine sodium Allergy Unknown RASH WITH Verified 12/10/20 21:42 [LEVOTHYROXINE SODIUM] GENERIC MED nitrofurantoin Allergy Unknown RASH Verified 12/10/20 21:42 [NITROFURANTOIN] Sulfa (Sulfonamide Allergy Unknown RASH Verified 12/10/20 21:42 Antibiotics) [SULFA (SULFONAMIDE ANTIBIOTICS)] sulfamethoxazole Allergy Unknown rash Verified 12/10/20 21:42 [From BACTRIM] trimethoprim [From BACTRIM] Allergy Unknown rash Verified 12/10/20 21:42 ALL GENERIC MEDS Allergy Unknown UNKNOWN Uncoded 11/01/20 14:27 SHRIMP Allergy Unknown Unknown Uncoded 11/01/20 14:27 Review of Systems Review of Systems: Positive for right arm and shoulder pain Negatives are no fever no chills no dizziness no weakness or fainting no feeling faint no headache no neck pain no numbness or weakness, no chest pain no shortness of breath no skin rash Yes all other systems are reviewed and are negative [facility] Past Medical History Source: nursing notes reviewed Medical History Abnormal laboratory test result Acquired hypothyroidism Anxiety Benign essential hypertension Depression Diabetes mellitus Diabetes type 2, uncontrolled Dyslipidemia Essential hypertension GERD without esophagitis Hypertension snf (current) use of insulin Lower back pain Lumbar spondylosis Obesity (BMI 30-39.9) Rash Right arm pain Sacroiliac joint disease Surgical History H/O thyroidectomy History of bladder surgery History of cholecystectomy History of esophagogastroduodenoscopy (EGD) Hx of colonoscopy Family History Family History Father No problems noted. Mother No problems noted. Sister Lung cancer Brother H/O heart surgery Son Epilepsy Social History Social History Alcohol intake: current Alcohol intake frequency: does not drink Advance Directives: Yes Advance Directives Information Provided: Yes Advance Directives on File: No Gender identity: female Physical Exam Vital Signs: Vital Signs: Last Vital Signs Temp 97.7 F 01/07/21 11:15 Pulse 70 01/07/21 11:15 Resp 18 01/07/21 11:15 BP 145/62 H 01/07/21 11:15 Pulse Ox 99 01/07/21 11:15 Body Mass Index 32.3 General appearance no acute distress That is normocephalic atraumatic Neck is supple Chest is clear to auscultation bilateral no chest wall tenderness Heart no murmur The right shoulder is tender both anterior deltoid and posterior, pain is reproduced with abduction extension and external rotation, sensation and motor are intact distal, skin is normal no redness no warmth no obvious effusion no rash There is also tenderness to the biceps area and the humerus area and some tenderness to the forearm all of which are normal in appearance with full range of motion in elbow and wrist and hand, no swelling anywhere in the arm Other extremities normal Neuro no gross motor sensory deficit Course Course Course Narrative: I had ordered an ultrasound of the right arm to rule out the possibility of upper extremity clot, this is unlikely but I told the patient has pain is in the entire arm we should check it and she refused the test now and said she would discuss it with her doctor, she is aware of risks of misdiagnosis and benefits of treatment should she have a clot Previous x-ray 3 months ago did show some arthritis and patient will follow with orthopedist and primary care doctor Discharge Plan Discharge Clinical Impression: Arthralgia of right shoulder region, Arm pain Patient Disposition: Home, Self-Care Additional Instructions: Follow with orthopedist and primary care doctor As you are now having pain in the entire arm we wanted to do an ultrasound to be sure there is no clot but you had to leave so I recommend he follow closely with her doctor or orthopedist to see if they feel the test is needed Return any time any worse condition or any concerns Prescriptions: New oxycodone 5 mg tablet 5 mg PO Q6H PRN (Reason: pain) Qty: 10 RF: 0 No Action hydrochlorothiazide 25 mg tablet 25 mg PO DAILY 90 Days Qty: 90 RF: 4 omeprazole 20 mg capsule,delayed release(DR/EC) 20 mg PO QAM Qty: 30 RF: 5 hydrocortisone [Anti-Itch (HC)] 1 % cream 1 appl topical BID PRN (Reason: skin irritation) 14 Days Qty: 28.35 RF: 1 pen needle, diabetic [BD Ultra-Fine Aarti Pen Needle] 32 gauge x 5/32 needle 1 ea subcut DAILY Qty: 30 RF: 6 diclofenac sodium 1 % gel 2 g topical QID 30 Days Qty: 100 RF: 4 tramadol 50 mg tablet See Rx Instructions .ROUTE .COMPLEX PRN (Reason: pain) 7 Days Qty: 14 RF: 0 cyclobenzaprine 10 mg tablet 10 mg PO BEDTIME Qty: 30 RF: 0 acetaminophen-codeine 300-30 mg tablet 1 tab PO Q8H PRN (Reason: pain) Qty: 10 RF: 0 naproxen 500 mg tablet 500 mg PO BID PRN (Reason: pain) Qty: 10 RF: 0 oxycodone-acetaminophen [Percocet] 5-325 mg tablet 1 tab PO TID PRN (Reason: pain) Qty: 9 RF: 0 acetaminophen [Arthritis Pain Relief (acetam)] 650 mg tablet extended release 650 mg PO Q12H PRN (Reason: pain) 15 Days Qty: 30 RF: 0 carbamide peroxide [Debrox] 6.5 % drops 5 drp otic (ears) Q12H 4 Days Qty: 15 RF: 0 lidocaine 5 % adhesive patch,medicated 1 patch topical DAILY PRN (Reason: pain (scale score 7-10)) 15 Days Qty: 15 RF: 0 triamcinolone acetonide 0.1 % cream 1 appl topical BID 10 Days Qty: 15 RF: 0 escitalopram oxalate 10 mg tablet 10 mg PO DAILY RF: 0 cetirizine 10 mg tablet 10 mg PO DAILY RF: 0 fluticasone propionate 50 mcg/actuation spray,suspension 1 spray intranasal DAILY RF: 0 levothyroxine 150 mcg tablet 150 mcg PO DAILY RF: 0 doxepin 10 mg capsule 10 mg PO BEDTIME RF: 0 gabapentin 300 mg capsule 300 mg PO BID RF: 0 hydroxyzine HCl 25 mg tablet 25 mg PO Q8H PRN (Reason: anxiety) RF: 0 lactulose 20 gram/30 mL solution 20 g PO TID RF: 0 dicyclomine 20 mg tablet 20 mg PO TID RF: 0 clobetasol 0.05 % ointment 1 appl topical DAILY Qty: 45 RF: 11 Myrbetriq 25 mg tablet extended release 24 hr 25 mg PO DAILY RF: 0 FreeStyle Lite Strips Strip 1 strip miscellaneous TID 90 Days Qty: 300 RF: 2 alcohol swabs [Alcohol Pads] Pads, Medicated 1 pad topical .COMPLEX Qty: 200 RF: 6 atorvastatin 20 mg tablet 20 mg PO DAILY 90 Days Qty: 90 RF: 2 Trulicity 0.75 mg/0.5 mL pen injector 0.75 mg subcut QWEEK 30 Days Qty: 2.5 RF: 6 Lantus Solostar U-100 Insulin 100 unit/mL (3 mL) insulin pen 12 unit subcut DAILY 30 Days Qty: 15 RF: 3 (DME) lancets [FreeStyle Lancets] 28 gauge misc See Rx Instructions .ROUTE .MEDSUPPLY Qty: 300 RF: 2 metformin 500 mg tablet 1,000 mg PO BID 30 Days Qty: 120 RF: 5 Interventions: ED Discharge Assessment Last Done: 01/07/21 13:04 Discharge Date/Time: 01/07/21 13:04
== END 2021-01-07 13:04 | disposition home or self-care (01) ==
PROVIDERS: Emergency Provider Emergency Medicine Emergency Medical Services; PCP Internal Medicine
DX: M79.601 Pain in right arm (principal); M19.011 Primary osteoarthritis, right shoulder; I10 Essential (primary) hypertension; E11.9 Type 2 diabetes mellitus without complications; E78.5 Hyperlipidemia, unspecified; Z79.4 Long term (current) use of insulin
CPT/HCPCS: 99283

== ENCOUNTER 2021-01-22 15:12 | Emergency (ER) | payer MEDICARE, SELFPAY ==
[2021-01-22 16:55] VITALS: BP 156/70; PULSE 74; RESP 20; TEMP 36.1; O2SAT 98
[2021-01-22 17:19] VITALS: BMI 34.3
--- NOTE | 2021-01-22 17:41 | ED_ITS ---
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 She states she initially fell in [place] about 3 years ago. She states she had a shoulder injury to her right shoulder and then she re-injured it approximately 3 months ago, she was seen in this ED had an x-ray with no acute finding. She has been going to physical therapy since and taking Percocet but states she did go to PT today because it hurt too much so she came to the emergency department for pain control. She states she does have an appointment with Orthopedics at the end of the month. she states she took Percocet at 14:00 today with no relief of her pain. She does use a walker to ambulate. Related Data Home Medications Medication Instructions Recorded Confirmed cetirizine 10 mg tablet 10 mg PO DAILY 06/26/20 12/15/20 escitalopram oxalate 10 mg tablet 10 mg PO DAILY 06/26/20 12/15/20 fluticasone propionate 50 1 spray INTRANASAL DAILY 06/26/20 12/15/20 mcg/actuation nasal spray,suspension levothyroxine 150 mcg tablet 150 mcg PO DAILY 06/26/20 12/15/20 dicyclomine 20 mg tablet 20 mg PO TID 07/07/20 12/15/20 lactulose 20 gram/30 mL oral 20 g PO TID 07/07/20 12/15/20 solution doxepin 10 mg capsule 10 mg PO BEDTIME cap 07/25/20 12/15/20 gabapentin 300 mg capsule 300 mg PO BID cap 12/15/20 12/15/20 hydroxyzine HCl 25 mg tablet 25 mg PO Q8H PRN tab 12/15/20 12/15/20 mirabegron 25 mg tablet,extended 25 mg PO DAILY 12/15/20 12/15/20 release 24 hr Previous Rx's Medication Instructions Recorded hydrochlorothiazide 25 mg tablet 25 mg PO DAILY 90 Days #90 tab 05/04/20 acetaminophen 650 mg 650 mg PO Q12H PRN 15 Days #30 tab 07/14/20 tablet,extended release carbamide peroxide 6.5 % ear drops 5 drp OTIC (EARS) Q12H 4 Days #15 07/14/20 ml lidocaine 5 % topical patch 1 patch TOPICAL DAILY PRN 15 Days 08/21/20 #15 ea triamcinolone acetonide 0.1 % 1 appl TOPICAL BID 10 Days #15 g 08/21/20 topical cream omeprazole 20 mg capsule,delayed 20 mg PO QAM #30 cap 08/27/20 release acetaminophen-codeine 1 tab PO Q8H PRN #10 tab 08/29/20 naproxen 500 mg PO BID PRN #10 tab 08/29/20 hydrocortisone 1 % topical cream 1 appl TOPICAL BID PRN 14 Days 09/01/20 #28.35 g pen needle, diabetic 32 gauge x 1 ea SUBCUT DAILY #30 ea 10/03/20 diclofenac sodium 1 % topical gel 2 g TOPICAL QID 30 Days #100 g 10/31/20 clobetasol 0.05 % topical ointment 1 appl TOPICAL DAILY #45 g 11/01/20 tramadol 50 mg tablet See Rx Instructions .ROUTE 11/22/20 .COMPLEX PRN 7 Days #14 tab oxycodone-acetaminophen [Percocet] 1 tab PO TID PRN #9 tab 11/27/20 alcohol swabs 1 pad TOPICAL .COMPLEX #200 pad 12/15/20 atorvastatin 20 mg tablet 20 mg PO DAILY 90 Days #90 tab 12/15/20 blood sugar diagnostic 1 strip MISCELLANEOUS TID 90 Days 12/15/20 #300 strip dulaglutide 0.75 mg/0.5 mL 0.75 mg SUBCUT QWEEK 30 Days #2.5 12/15/20 subcutaneous pen injector ml insulin glargine 100 unit/mL (3 12 unit SUBCUT DAILY 30 Days #15 ml 12/15/20 mL) subcutaneous pen lancets 28 gauge #300 ea 12/15/20 metformin 500 mg tablet 1,000 mg PO BID 30 Days #120 tab 12/15/20 cyclobenzaprine 10 mg tablet 10 mg PO BEDTIME #30 tab 12/24/20 oxycodone 5 mg tablet 5 mg PO Q6H PRN #10 tab 01/18/21 Allergies Allergy/AdvReac Type Severity Reaction Status Date / Time ciprofloxacin [CIPROFLOXACIN] Allergy Mild HIVES,RASH Verified 12/10/20 21:42 Penicillins [PENICILLINS] Allergy Mild RASH Verified 12/10/20 21:42 cephalexin [From KEFLEX] Allergy Unknown rash Verified 12/10/20 21:42 enalapril [ENALAPRIL] Allergy Unknown Cough Verified 12/10/20 21:42 levothyroxine sodium Allergy Unknown RASH WITH Verified 12/10/20 21:42 [LEVOTHYROXINE SODIUM] GENERIC MED nitrofurantoin Allergy Unknown RASH Verified 12/10/20 21:42 [NITROFURANTOIN] Sulfa (Sulfonamide Allergy Unknown RASH Verified 12/10/20 21:42 Antibiotics) [SULFA (SULFONAMIDE ANTIBIOTICS)] sulfamethoxazole Allergy Unknown rash Verified 12/10/20 21:42 [From BACTRIM] trimethoprim [From BACTRIM] Allergy Unknown rash Verified 12/10/20 21:42 ALL GENERIC MEDS Allergy Unknown UNKNOWN Uncoded 11/01/20 14:27 SHRIMP Allergy Unknown Unknown Uncoded 11/01/20 14:27 Review of Systems Review of Systems: Yes all other systems are reviewed and are negative [facility] Past Medical History Medical History Abnormal laboratory test result Acquired hypothyroidism Anxiety Benign essential hypertension Depression Diabetes mellitus Diabetes type 2, uncontrolled Dyslipidemia Essential hypertension GERD without esophagitis Hypertension assisted (current) use of insulin Lower back pain Lumbar spondylosis Obesity (BMI 30-39.9) Rash Right arm pain Sacroiliac joint disease Surgical History H/O thyroidectomy History of bladder surgery History of cholecystectomy History of esophagogastroduodenoscopy (EGD) Hx of colonoscopy Family History Family History Father No problems noted. Mother No problems noted. Sister Lung cancer Brother H/O heart surgery Son Epilepsy Social History Social History Alcohol intake: current Alcohol intake frequency: does not drink Advance Directives: No Advance Directives Information Provided: No Gender identity: female Physical Exam Vital Signs: Vital Signs: Last Vital Signs Temp 96.9 F 01/22/21 16:55 Pulse 74 01/22/21 16:55 Resp 20 01/22/21 16:55 BP 156/70 H 01/22/21 16:55 Pulse Ox 98 01/22/21 16:55 Body Mass Index 34.3 Const: General: cooperative, healthy appearing, comfortable and no acute distress Nutritional Appearance: obese Orientation/consciousness: patient oriented x3 Limitations: language barrier HENMT: Head: Yes normal to inspection, Yes No palpable skull fracture present, Yes normocephalic and Yes atraumatic Ears: hearing grossly normal bilaterally General nose exam: Normal external nose present Eyes: General: appearance normal, both eyes and all related structures Neck: Neck: Yes normal visual inspection and Yes full ROM Resp: Effort & Inspection: normal respiratory effort and able to speak in complete sentences Neuro: General: patient oriented x3 Extrem: Right upper extremity: shoulder/upper arm ( patient unable to adduct arm 2/2 pain, no signs of infection noted) Details: tenderness Location: of the A-C joint and of the proximal humerus and deformity (uneven/lower when compared to left shoulder); no swelling, no abrasions, no lacerations, no ecchymosis and no unusual warmth, elbow/forearm ( patient unble to flex or extend elbow w/o pain, no TTP or signs infection ) Details: no swelling, no unusual warmth and no abrasions and wrist Details: normal to inspection, abnormal ROM Details: pain with active ROM during and pain with passive ROM during, radial pulse present and ulnar pulse present; no tenderness, no swelling, no unusual warmth, no abrasions, no lacerations and no ecchymosis Discharge Plan Discharge Clinical Impression: Localized pain of right shoulder joint Patient Disposition: Home, Self-Care Instructions: Shoulder Pain (ED) Additional Instructions: Please be sure to alternate your percocet with ibuprofen at home for pain control. Please do not take any ibuprofen until 1am tomorrow as the medicine we gave you in the Emergency Dept is a type of ibuprofen. Please also continue to go to physical therapy but take your percocet just prior to going to PT. I have also sent a referral to Orthopedics to try to get you an appointment sooner than one month. You can use ice or heat for pain control as well, whichever feels better for you. Prescriptions: No Action hydrochlorothiazide 25 mg tablet 25 mg PO DAILY 90 Days Qty: 90 RF: 4 omeprazole 20 mg capsule,delayed release(DR/EC) 20 mg PO QAM Qty: 30 RF: 5 hydrocortisone [Anti-Itch (HC)] 1 % cream 1 appl topical BID PRN (Reason: skin irritation) 14 Days Qty: 28.35 RF: 1 pen needle, diabetic [BD Ultra-Fine Aarti Pen Needle] 32 gauge x 5/32 needle 1 ea subcut DAILY Qty: 30 RF: 6 diclofenac sodium 1 % gel 2 g topical QID 30 Days Qty: 100 RF: 4 tramadol 50 mg tablet See Rx Instructions .ROUTE .COMPLEX PRN (Reason: pain) 7 Days Qty: 14 RF: 0 cyclobenzaprine 10 mg tablet 10 mg PO BEDTIME Qty: 30 RF: 0 oxycodone 5 mg tablet 5 mg PO Q6H PRN (Reason: pain) Qty: 10 RF: 0 acetaminophen-codeine 300-30 mg tablet 1 tab PO Q8H PRN (Reason: pain) Qty: 10 RF: 0 naproxen 500 mg tablet 500 mg PO BID PRN (Reason: pain) Qty: 10 RF: 0 oxycodone-acetaminophen [Percocet] 5-325 mg tablet 1 tab PO TID PRN (Reason: pain) Qty: 9 RF: 0 acetaminophen [Arthritis Pain Relief (acetam)] 650 mg tablet extended release 650 mg PO Q12H PRN (Reason: pain) 15 Days Qty: 30 RF: 0 carbamide peroxide [Debrox] 6.5 % drops 5 drp otic (ears) Q12H 4 Days Qty: 15 RF: 0 lidocaine 5 % adhesive patch,medicated 1 patch topical DAILY PRN (Reason: pain (scale score 7-10)) 15 Days Qty: 15 RF: 0 triamcinolone acetonide 0.1 % cream 1 appl topical BID 10 Days Qty: 15 RF: 0 escitalopram oxalate 10 mg tablet 10 mg PO DAILY RF: 0 cetirizine 10 mg tablet 10 mg PO DAILY RF: 0 fluticasone propionate 50 mcg/actuation spray,suspension 1 spray intranasal DAILY RF: 0 levothyroxine 150 mcg tablet 150 mcg PO DAILY RF: 0 doxepin 10 mg capsule 10 mg PO BEDTIME RF: 0 gabapentin 300 mg capsule 300 mg PO BID RF: 0 hydroxyzine HCl 25 mg tablet 25 mg PO Q8H PRN (Reason: anxiety) RF: 0 lactulose 20 gram/30 mL solution 20 g PO TID RF: 0 dicyclomine 20 mg tablet 20 mg PO TID RF: 0 clobetasol 0.05 % ointment 1 appl topical DAILY Qty: 45 RF: 11 Myrbetriq 25 mg tablet extended release 24 hr 25 mg PO DAILY RF: 0 FreeStyle Lite Strips Strip 1 strip miscellaneous TID 90 Days Qty: 300 RF: 2 alcohol swabs [Alcohol Pads] Pads, Medicated 1 pad topical .COMPLEX Qty: 200 RF: 6 atorvastatin 20 mg tablet 20 mg PO DAILY 90 Days Qty: 90 RF: 2 Trulicity 0.75 mg/0.5 mL pen injector 0.75 mg subcut QWEEK 30 Days Qty: 2.5 RF: 6 Lantus Solostar U-100 Insulin 100 unit/mL (3 mL) insulin pen 12 unit subcut DAILY 30 Days Qty: 15 RF: 3 (DME) lancets [FreeStyle Lancets] 28 gauge misc See Rx Instructions .ROUTE .MEDSUPPLY Qty: 300 RF: 2 metformin 500 mg tablet 1,000 mg PO BID 30 Days Qty: 120 RF: 5 Referrals: Forrest Alvarez MD [Physician] - 2 days (pt unable to lift right arm/shoulder joint, mulitple shoulder injuries, going to PT but it's too painful. Has an appt in a month but should be evaluated sooner) Print Language: Faroese
[2021-01-22] MEDS: Ketorolac Tromethamine 60 MG/2 ML VIAL IM (18:02)
== END 2021-01-22 18:20 | disposition home or self-care (01) ==
PROVIDERS: Emergency Provider Internal Medicine; PCP Internal Medicine
DX: M25.511 Pain in right shoulder (principal); R29.6 Repeated falls; E11.9 Type 2 diabetes mellitus without complications; I10 Essential (primary) hypertension; Z79.4 Long term (current) use of insulin; Z79.899 Other long term (current) drug therapy
CPT/HCPCS: 96372; 99284; J1885

== ENCOUNTER 2021-01-23 08:44 | Outpatient (REF) | payer MEDICARE, SELFPAY ==
[2021-01-23 09:19] LABS: MANUAL DIFF FLAG NO
[2021-01-23 09:22] LABS: Basophils Absolute Auto 0.1 X10*3/uL (0.0-0.2); Basophils Percent Auto 0.7 % (0-2); Eosinophils Absolute Auto 0.6 X10*3/uL (0.0-0.4); Eosinophils Percent Auto 6.7 % (0-4); Hematocrit 39.1 % (37-47); Hemoglobin 13.3 g/dl (12.0-16.0); Imm Gran Abs Auto 0.03 X10*3/uL (0.00-0.03); Imm Gran Pct Auto 0.4 % (0.0-0.4); Lymphocytes Absolute Auto 2.3 X10*3/uL (1.2-4.9); Lymphocytes Percent Auto 27.4 % (20-40); Mean Corpuscular Volume 85.4 fL (80-98); Mean Platelet Volume 12.5 fL (9.4-12.3); Monocytes Absolute Auto 0.8 X10*3/uL (0.1-1.2); Monocytes Percent Auto 9.1 % (2-11); Neutrophils Absolute Auto 4.6 X10*3/uL (2.0-8.3); Neutrophils Percent Auto 55.7 % (45-73); Platelet Count 235 X10*3/uL (160-400); Red Blood Count 4.58 X10*6/uL (4.20-5.50); Red Cell Distribution Width 12.4 % (11.0-16.0); White Blood Count 8.3 X10*3/uL (4.8-10.8)
[2021-01-23 09:31] LABS: Estimated Average Glucose 148 mg/dL; Hemoglobin A1c % 6.8 %
[2021-01-23 09:43] LABS: Alanine Aminotransferase 26 U/L (0-31); Alkaline Phosphatase 114 U/L (39-117); Anion Gap 12 (12-20); Aspartate Amino Transferase 26 U/L (5-31); Bilirubin Total 0.7 mg/dL (0.0-1.0); Blood Urea Nitrogen 22 mg/dL (9-16); Calcium 9.7 mg/dL (8.4-10.2); Carbon Dioxide 30 mmol/L (22-29); Chloride 102 mmol/L (96-108); Cholesterol 163 mg/dL; Estimated Glomerular Filt Rate > 60; Glucose Fasting 147 mg/dL (60-99); HDL Cholesterol 44 mg/dL; LDL Cholesterol Calculated 104 mg/dl; Sodium 140 mmol/L (135-145); Total Protein 7.3 g/dL (6.5-8.0); Triglycerides 75 mg/dL
[2021-01-23 10:05] LABS: Thyroid Stimulating Hormone 1.49 uIU/mL (0.32-4.0)
[2021-01-23 10:16] LABS: Glucose Urine UA NEG (NEG); Leukocyte Esterase Urine 1+ (NEG); Nitrite Urine NEG (NEG); Specific Gravity - Urine 1.025 (1.005-1.025); UACC Culture Trigger YES; Urine Blood NEG (NEG); Urine Ketones NEG (NEG); Urine Protein TRACE MG/DL (NEG-TRACE)
[2021-01-23 10:21] LABS: Appearance Urine CLEAR; Color Urine YELLOW
[2021-01-23 10:32] LABS: Mucus Urine 1+ /LPF; RBC Urine 0-2 /HPF (0); Squamous Epithelial Cell Urine 1+ /LPF
[2021-01-23 10:58] LABS: Creatinine Urine 297.84 mg/dL; Microalbum/Creatinine Ratio Ur 6.7 ug/mg cr
== END 2021-01-23 08:45 | disposition home or self-care (01) ==
LOC: HO.LAB 08:44
PROVIDERS: PCP Internal Medicine; Visit Provider Internal Medicine
DX: E11.9 Type 2 diabetes mellitus without complications (principal); I10 Essential (primary) hypertension; E66.9 Obesity, unspecified; K21.9 Gastro-esophageal reflux disease without esophagitis; E03.9 Hypothyroidism, unspecified; Z79.4 Long term (current) use of insulin
CPT/HCPCS: 36415; 80053; 80061; 81001; 81003; 82043; 83036; 84439; 84443; 85025; 87086

== ENCOUNTER 2021-02-01 11:49 | Emergency (ER) | payer MEDICARE, SELFPAY ==
[2021-02-01 11:55] VITALS: BP 159/88; PULSE 64; RESP 15; TEMP 36.7; O2SAT 97; BMI 34.3
--- NOTE | 2021-02-01 12:23 | ED_ITS ---
HPI - Extremity Problem General Chief complaint: Extremity Injury, Upper Stated complaint: hand injury Time Seen by Provider: 02/01/21 12:23 History of Present Illness HPI Narrative: patient complains of right shoulder and arm pain for several months, she has had 2 steroid shots with several weeks of benefit and then the pain comes back, shots were in the shoulder placed by orthopedist, she has no new injury no fever, pain is similar to how it has been for the last several months Related Data Home Medications Medication Instructions Recorded Confirmed cetirizine 10 mg tablet 10 mg PO DAILY 06/26/20 12/15/20 escitalopram oxalate 10 mg tablet 10 mg PO DAILY 06/26/20 12/15/20 fluticasone propionate 50 1 spray INTRANASAL DAILY 06/26/20 12/15/20 mcg/actuation nasal spray,suspension levothyroxine 150 mcg tablet 150 mcg PO DAILY 06/26/20 12/15/20 dicyclomine 20 mg tablet 20 mg PO TID 07/07/20 12/15/20 lactulose 20 gram/30 mL oral 20 g PO TID 07/07/20 12/15/20 solution doxepin 10 mg capsule 10 mg PO BEDTIME cap 07/25/20 12/15/20 gabapentin 300 mg capsule 300 mg PO BID cap 12/15/20 12/15/20 hydroxyzine HCl 25 mg tablet 25 mg PO Q8H PRN tab 12/15/20 12/15/20 mirabegron 25 mg tablet,extended 25 mg PO DAILY 12/15/20 12/15/20 release 24 hr Previous Rx's Medication Instructions Recorded hydrochlorothiazide 25 mg tablet 25 mg PO DAILY 90 Days #90 tab 05/04/20 acetaminophen 650 mg 650 mg PO Q12H PRN 15 Days #30 tab 07/14/20 tablet,extended release (Arthritis Pain Relief (acetaminophen) ER) carbamide peroxide 6.5 % ear drops 5 drp OTIC (EARS) Q12H 4 Days #15 07/14/20 (Debrox) ml lidocaine 5 % topical patch 1 patch TOPICAL DAILY PRN 15 Days 08/21/20 #15 ea triamcinolone acetonide 0.1 % 1 appl TOPICAL BID 10 Days #15 g 08/21/20 topical cream omeprazole 20 mg capsule,delayed 20 mg PO QAM #30 cap 01/31/21 release acetaminophen 300 mg-codeine 30 mg 1 tab PO Q8H PRN #10 tab 08/29/20 tablet naproxen 500 mg tablet 500 mg PO BID PRN #10 tab 08/29/20 hydrocortisone 1 % topical cream 1 appl TOPICAL BID PRN 14 Days 09/01/20 (Anti-Itch (hydrocortisone)) #28.35 g pen needle, diabetic 32 gauge x 1 ea SUBCUT DAILY #30 ea 10/03/20 (BD Ultra-Fine Aarti Pen Needle) diclofenac sodium 1 % topical gel 2 g TOPICAL QID 30 Days #100 g 10/31/20 clobetasol 0.05 % topical ointment 1 appl TOPICAL DAILY #45 g 11/01/20 tramadol 50 mg tablet See Rx Instructions .ROUTE 11/22/20 .COMPLEX PRN 7 Days #14 tab oxycodone-acetaminophen 5 mg-325 1 tab PO TID PRN #9 tab 11/27/20 mg tablet (Percocet) alcohol swabs (Alcohol Pads) 1 pad TOPICAL .COMPLEX #200 pad 12/15/20 atorvastatin 20 mg tablet 20 mg PO DAILY 90 Days #90 tab 12/15/20 blood sugar diagnostic (FreeStyle 1 strip MISCELLANEOUS TID 90 Days 12/15/20 Lite Strips) #300 strip dulaglutide 0.75 mg/0.5 mL 0.75 mg SUBCUT QWEEK 30 Days #2.5 12/15/20 subcutaneous pen injector ml (Trulicity) insulin glargine 100 unit/mL (3 12 unit SUBCUT DAILY 30 Days #15 ml 12/15/20 mL) subcutaneous pen (Lantus Solostar U-100 Insulin) lancets 28 gauge (FreeStyle #300 ea 12/15/20 Lancets) metformin 500 mg tablet 1,000 mg PO BID 30 Days #120 tab 12/15/20 oxycodone 5 mg tablet 5 mg PO Q8H PRN 3 Days #9 tab 01/26/21 cyclobenzaprine 10 mg tablet 10 mg PO BEDTIME #30 tab 01/31/21 ibuprofen 600 mg tablet 600 mg PO Q6H PRN #20 tab 02/01/21 oxycodone 5 mg tablet 5 mg PO Q6H PRN #10 tab 02/01/21 tramadol 50 mg tablet 50 mg PO BID PRN #10 tab 02/13/21 naproxen 500 mg tablet 500 mg PO BID PRN #20 tab 02/19/21 Allergies Allergy/AdvReac Type Severity Reaction Status Date / Time ciprofloxacin [CIPROFLOXACIN] Allergy Mild HIVES,RASH Verified 02/06/21 11:09 Penicillins [PENICILLINS] Allergy Mild RASH Verified 02/06/21 11:09 cephalexin [From KEFLEX] Allergy Unknown rash Verified 02/06/21 11:09 enalapril [ENALAPRIL] Allergy Unknown Cough Verified 02/06/21 11:09 levothyroxine sodium Allergy Unknown RASH WITH Verified 02/06/21 11:09 [LEVOTHYROXINE SODIUM] GENERIC MED nitrofurantoin Allergy Unknown RASH Verified 02/06/21 11:09 [NITROFURANTOIN] Sulfa (Sulfonamide Allergy Unknown RASH Verified 02/06/21 11:09 Antibiotics) [SULFA (SULFONAMIDE ANTIBIOTICS)] sulfamethoxazole Allergy Unknown rash Verified 02/06/21 11:09 [From BACTRIM] trimethoprim [From BACTRIM] Allergy Unknown rash Verified 02/06/21 11:09 ALL GENERIC MEDS Allergy Unknown UNKNOWN Uncoded 11/01/20 14:27 SHRIMP Allergy Unknown Unknown Uncoded 11/01/20 14:27 Review of Systems Review of Systems: Positive for right shoulder pain negatives are no headache no neck pain no back pain no chest pain no numbness weakness or tingling no skin rash PMFSH Past Medical History Medical History Abnormal laboratory test result Acquired hypothyroidism Anxiety Benign essential hypertension Depression Diabetes mellitus Diabetes type 2, uncontrolled Dyslipidemia Essential hypertension GERD without esophagitis Hypertension shelter (current) use of insulin Lower back pain Lumbar spondylosis Obesity (BMI 30-39.9) Rash Right arm pain Sacroiliac joint disease Surgical History H/O thyroidectomy History of bladder surgery History of cholecystectomy History of esophagogastroduodenoscopy (EGD) Hx of colonoscopy Family History Family History Father No problems noted. Mother No problems noted. Sister Lung cancer Brother H/O heart surgery Son Epilepsy Social History Social History Alcohol intake: current Alcohol intake frequency: does not drink Gender identity: female Physical Exam Vital Signs: Vital Signs: Last Vital Signs Temp 96.9 F 02/01/21 13:24 Pulse 59 02/01/21 13:24 Resp 16 02/01/21 13:24 BP 140/61 H 02/01/21 13:24 Pulse Ox 97 02/01/21 13:24 Body Mass Index 34.3 General appearance no acute distress Head is normocephalic atraumatic Neck is supple The chest is clear to auscultation bilateral no chest wall tenderness The extremities the right shoulder had anterior posterior and lateral tenderness with normal appearing skin no redness no warmth no swelling, range of motion was limited by discomfort and neurovascular intact distal Skin no rash Neuro no focal motor or sensory deficits Course Course Course Narrative: Patient with months of pain in right shoulder who has had 2 steroid shots is advised to follow with orthopedist X for further evaluation Discharge Plan Discharge Clinical Impression: Arthralgia Patient Disposition: Home, Self-Care Additional Instructions: follow with orthopedist for further evaluation, you may need MRI of the shoulder to evaluate what exactly is causing the problem I wrote for more pain medicine Return any time any worse condition or concerns Prescriptions: New oxycodone 5 mg tablet 5 mg PO Q6H PRN (Reason: pain) Qty: 10 RF: 0 ibuprofen 600 mg tablet 600 mg PO Q6H PRN (Reason: pain) Qty: 20 RF: 0 No Action hydrochlorothiazide 25 mg tablet 25 mg PO DAILY 90 Days Qty: 90 RF: 4 omeprazole 20 mg capsule,delayed release(DR/EC) 20 mg PO QAM Qty: 30 RF: 5 hydrocortisone [Anti-Itch (HC)] 1 % cream 1 appl topical BID PRN (Reason: skin irritation) 14 Days Qty: 28.35 RF: 1 pen needle, diabetic [BD Ultra-Fine Aarti Pen Needle] 32 gauge x 5/32 needle 1 ea subcut DAILY Qty: 30 RF: 6 diclofenac sodium 1 % gel 2 g topical QID 30 Days Qty: 100 RF: 4 tramadol 50 mg tablet See Rx Instructions .ROUTE .COMPLEX PRN (Reason: pain) 7 Days Qty: 14 RF: 0 oxycodone 5 mg tablet 5 mg PO Q8H PRN (Reason: pain) 3 Days Qty: 9 RF: 0 cyclobenzaprine 10 mg tablet 10 mg PO BEDTIME Qty: 30 RF: 0 acetaminophen-codeine 300-30 mg tablet 1 tab PO Q8H PRN (Reason: pain) Qty: 10 RF: 0 naproxen 500 mg tablet 500 mg PO BID PRN (Reason: pain) Qty: 10 RF: 0 oxycodone-acetaminophen [Percocet] 5-325 mg tablet 1 tab PO TID PRN (Reason: pain) Qty: 9 RF: 0 naproxen 500 mg tablet 500 mg PO BID PRN (Reason: pain) Qty: 20 RF: 0 acetaminophen [Arthritis Pain Relief (acetam)] 650 mg tablet extended release 650 mg PO Q12H PRN (Reason: pain) 15 Days Qty: 30 RF: 0 carbamide peroxide [Debrox] 6.5 % drops 5 drp otic (ears) Q12H 4 Days Qty: 15 RF: 0 lidocaine 5 % adhesive patch,medicated 1 patch topical DAILY PRN (Reason: pain (scale score 7-10)) 15 Days Qty: 15 RF: 0 triamcinolone acetonide 0.1 % cream 1 appl topical BID 10 Days Qty: 15 RF: 0 tramadol 50 mg tablet 50 mg PO BID PRN (Reason: pain) Qty: 10 RF: 0 escitalopram oxalate 10 mg tablet 10 mg PO DAILY RF: 0 cetirizine 10 mg tablet 10 mg PO DAILY RF: 0 fluticasone propionate 50 mcg/actuation spray,suspension 1 spray intranasal DAILY RF: 0 levothyroxine 150 mcg tablet 150 mcg PO DAILY RF: 0 doxepin 10 mg capsule 10 mg PO BEDTIME RF: 0 gabapentin 300 mg capsule 300 mg PO BID RF: 0 hydroxyzine HCl 25 mg tablet 25 mg PO Q8H PRN (Reason: anxiety) RF: 0 lactulose 20 gram/30 mL solution 20 g PO TID RF: 0 dicyclomine 20 mg tablet 20 mg PO TID RF: 0 clobetasol 0.05 % ointment 1 appl topical DAILY Qty: 45 RF: 11 Myrbetriq 25 mg tablet extended release 24 hr 25 mg PO DAILY RF: 0 FreeStyle Lite Strips Strip 1 strip miscellaneous TID 90 Days Qty: 300 RF: 2 alcohol swabs [Alcohol Pads] Pads, Medicated 1 pad topical .COMPLEX Qty: 200 RF: 6 atorvastatin 20 mg tablet 20 mg PO DAILY 90 Days Qty: 90 RF: 2 Trulicity 0.75 mg/0.5 mL pen injector 0.75 mg subcut QWEEK 30 Days Qty: 2.5 RF: 6 Lantus Solostar U-100 Insulin 100 unit/mL (3 mL) insulin pen 12 unit subcut DAILY 30 Days Qty: 15 RF: 3 (DME) lancets [FreeStyle Lancets] 28 gauge misc See Rx Instructions .ROUTE .MEDSUPPLY Qty: 300 RF: 2 metformin 500 mg tablet 1,000 mg PO BID 30 Days Qty: 120 RF: 5 Interventions: ED Discharge Assessment Last Done: 02/01/21 13:53 Discharge Date/Time: 02/01/21 13:54
[2021-02-01 13:24] VITALS: BP 140/61; PULSE 59; RESP 16; TEMP 36.1; O2SAT 97
[2021-02-01] MEDS: Ketorolac Tromethamine 30 MG/ML VIAL IM (13:50)
== END 2021-02-01 13:54 | disposition home or self-care (01) ==
PROVIDERS: Emergency Provider Emergency Medicine; PCP Internal Medicine
DX: M25.511 Pain in right shoulder (principal); I10 Essential (primary) hypertension; E11.9 Type 2 diabetes mellitus without complications; Z79.4 Long term (current) use of insulin; Z79.899 Other long term (current) drug therapy
CPT/HCPCS: 96372; 99284; J1885

== ENCOUNTER → 2021-02-06 11:03 | Outpatient (BNVA) | payer MEDICARE, SELFPAY | PROVIDERS: PCP Internal Medicine; Visit Provider Orthopaedic Surgery | DX: M75.41 Impingement syndrome of right shoulder (principal); E03.9 Hypothyroidism, unspecified; E11.65 Type 2 diabetes mellitus with hyperglycemia; I10 Essential (primary) hypertension; Z88.2 Allergy status to sulfonamides; Z88.8 Allergy status to other drugs, medicaments and biological substances; Z88.0 Allergy status to penicillin; Z91.013 Allergy to seafood; Z79.4 Long term (current) use of insulin | CPT/HCPCS: 99212 ==

== ENCOUNTER 2021-02-19 12:48 | Emergency (ER) | payer MEDICARE, SELFPAY ==
--- NOTE | ~2021-02-19 | CT_ITS ---
EXAMINATION: CT BRAIN WITHOUT CONTRAST. CT CERVICAL SPINE WITHOUT CONTRAST. CLINICAL INFORMATION: Fall. COMPARISON: None TECHNIQUE: 5 mm thin axial and reformatted 2 mm thin sagittal and coronal images of brain were obtained without contrast. Axial 3 mm thin and reformatted 2 mm thin sagittal and coronal images of cervical spine were obtained. DL 1219 FINDINGS: Brain: There is no acute intra-axial, extra-axial bleed, masses or midline shift. There is no acute infarction evolution. The lateral ventricles are symmetrical in size and configuration without ventriculomegaly. The short to white matter differentiation is maintained normal. Bone windows reveal no calvarial fracture. There is a small periosteal calcified hematoma or sclerotic exophytic lesion in the right frontal bone. It is best visualized on coronal image 24/8. Bilateral paranasal sinuses and mastoid air cells are well-aerated. Cervical spine: On sagittal reconstructed images is maintained cervical lordosis. The vertebral heights, alignment and disc heights are normal. The craniovertebral junction and the C1-C2 alignment is normal. There is focal ligament flavum calcification in the spinal canal at C5 vertebra. No visible acute fracture, dislocation or subluxation seen. The prevertebral and paravertebral soft tissues are normal. The airway is widely patent. The lung apices are clear. CT/CT head/brain wo con IMPRESSION: No acute intracranial process seen. Small accessory sclerotic density left frontal bone likely a calcified old periosteal hematoma CALLUS formation. No acute fracture dislocation or subluxation of cervical spine. Several small calcified densities along the left ligament flavum at C5 vertebra but no spinal canal stenosis
--- NOTE | ~2021-02-19 | CT_ITS ---
EXAMINATION: CT BRAIN WITHOUT CONTRAST. CT CERVICAL SPINE WITHOUT CONTRAST. CLINICAL INFORMATION: Fall. COMPARISON: None TECHNIQUE: 5 mm thin axial and reformatted 2 mm thin sagittal and coronal images of brain were obtained without contrast. Axial 3 mm thin and reformatted 2 mm thin sagittal and coronal images of cervical spine were obtained. DL 1219 FINDINGS: Brain: There is no acute intra-axial, extra-axial bleed, masses or midline shift. There is no acute infarction evolution. The lateral ventricles are symmetrical in size and configuration without ventriculomegaly. The short to white matter differentiation is maintained normal. Bone windows reveal no calvarial fracture. There is a small periosteal calcified hematoma or sclerotic exophytic lesion in the right frontal bone. It is best visualized on coronal image 24/8. Bilateral paranasal sinuses and mastoid air cells are well-aerated. Cervical spine: On sagittal reconstructed images is maintained cervical lordosis. The vertebral heights, alignment and disc heights are normal. The craniovertebral junction and the C1-C2 alignment is normal. There is focal ligament flavum calcification in the spinal canal at C5 vertebra. No visible acute fracture, dislocation or subluxation seen. The prevertebral and paravertebral soft tissues are normal. The airway is widely patent. The lung apices are clear. CT/CT cervical spine wo con IMPRESSION: No acute intracranial process seen. Small accessory sclerotic density left frontal bone likely a calcified old periosteal hematoma CALLUS formation. No acute fracture dislocation or subluxation of cervical spine. Several small calcified densities along the left ligament flavum at C5 vertebra but no spinal canal stenosis
--- NOTE | ~2021-02-19 | XR_ITS ---
EXAMINATION: THORACIC AND LUMBAR SPINE. CLINICAL INFORMATION: Fall. COMPARISON: None TECHNIQUE: 3 views dorsal spine and 3 views lumbar spine. FINDINGS: DORSAL SPINE: There is normal thoracic kyphosis. The vertebral heights and alignment is normal except for mild anterior wedging of T10 vertebra, likely old. The disc heights are maintained normal. There is moderate ventral and lateral spondylosis throughout dorsal spine. No visible acute fracture, dislocation or lytic process seen. The paravertebral soft tissues are normal. There is mild deviation of trachea to the right from soft tissue mass likely substernal goiter or ectatic aorta or the aortic branches.. LUMBAR SPINE: There is normal lumbar lordosis. The vertebral heights and alignment is normal. There is no visible acute fracture, dislocation or lytic process seen. There is mild ventral spondylosis lumbar spine. No visible acute fracture, dislocation or lytic process seen. The paravertebral soft tissues are normal. XR/XR lumbar spine 2-3V IMPRESSION: Old T12 wedge deformity. No acute fracture or lytic process seen. There is moderate ventral and right lateral spondylosis. Unremarkable lumbar spine except for spondylosis.
--- NOTE | ~2021-02-19 | XR_ITS ---
EXAMINATION: THORACIC AND LUMBAR SPINE. CLINICAL INFORMATION: Fall. COMPARISON: None TECHNIQUE: 3 views dorsal spine and 3 views lumbar spine. FINDINGS: DORSAL SPINE: There is normal thoracic kyphosis. The vertebral heights and alignment is normal except for mild anterior wedging of T10 vertebra, likely old. The disc heights are maintained normal. There is moderate ventral and lateral spondylosis throughout dorsal spine. No visible acute fracture, dislocation or lytic process seen. The paravertebral soft tissues are normal. There is mild deviation of trachea to the right from soft tissue mass likely substernal goiter or ectatic aorta or the aortic branches.. LUMBAR SPINE: There is normal lumbar lordosis. The vertebral heights and alignment is normal. There is no visible acute fracture, dislocation or lytic process seen. There is mild ventral spondylosis lumbar spine. No visible acute fracture, dislocation or lytic process seen. The paravertebral soft tissues are normal. XR/XR thoracic spine 3V IMPRESSION: Old T12 wedge deformity. No acute fracture or lytic process seen. There is moderate ventral and right lateral spondylosis. Unremarkable lumbar spine except for spondylosis.
[2021-02-19 12:55] VITALS: BP 159/48; PULSE 89; RESP 18; TEMP 36.8; O2SAT 100; BMI 35.4
--- NOTE | 2021-02-19 16:03 | ED_ITS ---
HPI - Fall General Chief Complaint: Fall Stated Complaint: FALL, BACK/HEAD PAIN, +COLLAR Time Seen by Provider: 02/19/21 13:19 Source: patient Mode of arrival: ambulatory Limitations: no limitations History of Present Illness HPI Narrative: Patient presents ED for back pain and headache. Patient had a mechanical fall. Patient states she was trying to sit on her walker going backwards and she missed the chair and fell right onto her butt and back. Once again patient did not look to sit. she was sitting back without looking at the chair. Patient denies feeling dizzy or having any chest pain/headache or abdo martina pain before falling. Once again patient fell because she missed the seat on the walker. MD complaint: fall Related Data Home Medications Medication Instructions Recorded Confirmed cetirizine 10 mg tablet 10 mg PO DAILY 06/26/20 12/15/20 escitalopram oxalate 10 mg tablet 10 mg PO DAILY 06/26/20 12/15/20 fluticasone propionate 50 1 spray INTRANASAL DAILY 06/26/20 12/15/20 mcg/actuation nasal spray,suspension levothyroxine 150 mcg tablet 150 mcg PO DAILY 06/26/20 12/15/20 dicyclomine 20 mg tablet 20 mg PO TID 07/07/20 12/15/20 lactulose 20 gram/30 mL oral 20 g PO TID 07/07/20 12/15/20 solution doxepin 10 mg capsule 10 mg PO BEDTIME cap 07/25/20 12/15/20 gabapentin 300 mg capsule 300 mg PO BID cap 12/15/20 12/15/20 hydroxyzine HCl 25 mg tablet 25 mg PO Q8H PRN tab 12/15/20 12/15/20 mirabegron 25 mg tablet,extended 25 mg PO DAILY 12/15/20 12/15/20 release 24 hr Previous Rx's Medication Instructions Recorded hydrochlorothiazide 25 mg tablet 25 mg PO DAILY 90 Days #90 tab 05/04/20 acetaminophen 650 mg 650 mg PO Q12H PRN 15 Days #30 tab 07/14/20 tablet,extended release carbamide peroxide 6.5 % ear drops 5 drp OTIC (EARS) Q12H 4 Days #15 07/14/20 ml lidocaine 5 % topical patch 1 patch TOPICAL DAILY PRN 15 Days 08/21/20 #15 ea triamcinolone acetonide 0.1 % 1 appl TOPICAL BID 10 Days #15 g 08/21/20 topical cream omeprazole 20 mg capsule,delayed 20 mg PO QAM #30 cap 08/27/20 release acetaminophen-codeine 1 tab PO Q8H PRN #10 tab 08/29/20 naproxen 500 mg PO BID PRN #10 tab 08/29/20 hydrocortisone 1 % topical cream 1 appl TOPICAL BID PRN 14 Days 09/01/20 #28.35 g pen needle, diabetic 32 gauge x 1 ea SUBCUT DAILY #30 ea 10/03/20 diclofenac sodium 1 % topical gel 2 g TOPICAL QID 30 Days #100 g 10/31/20 clobetasol 0.05 % topical ointment 1 appl TOPICAL DAILY #45 g 11/01/20 tramadol 50 mg tablet See Rx Instructions .ROUTE 11/22/20 .COMPLEX PRN 7 Days #14 tab oxycodone-acetaminophen [Percocet] 1 tab PO TID PRN #9 tab 11/27/20 alcohol swabs 1 pad TOPICAL .COMPLEX #200 pad 12/15/20 atorvastatin 20 mg tablet 20 mg PO DAILY 90 Days #90 tab 12/15/20 blood sugar diagnostic 1 strip MISCELLANEOUS TID 90 Days 12/15/20 #300 strip dulaglutide 0.75 mg/0.5 mL 0.75 mg SUBCUT QWEEK 30 Days #2.5 12/15/20 subcutaneous pen injector ml insulin glargine 100 unit/mL (3 12 unit SUBCUT DAILY 30 Days #15 ml 12/15/20 mL) subcutaneous pen lancets 28 gauge #300 ea 12/15/20 metformin 500 mg tablet 1,000 mg PO BID 30 Days #120 tab 12/15/20 oxycodone 5 mg tablet 5 mg PO Q8H PRN 3 Days #9 tab 01/26/21 cyclobenzaprine 10 mg tablet 10 mg PO BEDTIME #30 tab 01/31/21 ibuprofen 600 mg PO Q6H PRN #20 tab 02/01/21 oxycodone 5 mg PO Q6H PRN #10 tab 02/01/21 tramadol 50 mg tablet 50 mg PO BID PRN #10 tab 02/13/21 naproxen 500 mg PO BID PRN #20 tab 02/19/21 Allergies Allergy/AdvReac Type Severity Reaction Status Date / Time ciprofloxacin [CIPROFLOXACIN] Allergy Mild HIVES,RASH Verified 02/06/21 11:09 Penicillins [PENICILLINS] Allergy Mild RASH Verified 02/06/21 11:09 cephalexin [From KEFLEX] Allergy Unknown rash Verified 02/06/21 11:09 enalapril [ENALAPRIL] Allergy Unknown Cough Verified 02/06/21 11:09 levothyroxine sodium Allergy Unknown RASH WITH Verified 02/06/21 11:09 [LEVOTHYROXINE SODIUM] GENERIC MED nitrofurantoin Allergy Unknown RASH Verified 02/06/21 11:09 [NITROFURANTOIN] Sulfa (Sulfonamide Allergy Unknown RASH Verified 02/06/21 11:09 Antibiotics) [SULFA (SULFONAMIDE ANTIBIOTICS)] sulfamethoxazole Allergy Unknown rash Verified 02/06/21 11:09 [From BACTRIM] trimethoprim [From BACTRIM] Allergy Unknown rash Verified 02/06/21 11:09 ALL GENERIC MEDS Allergy Unknown UNKNOWN Uncoded 11/01/20 14:27 SHRIMP Allergy Unknown Unknown Uncoded 11/01/20 14:27 Review of Systems Review of Systems: Yes all other systems are reviewed and are negative Constitutional: Constitutional: Reports as per HPI, Reports no additional constitutional complaints and Reports headache(s) Eyes: Eyes: Reports as per HPI and Reports no additional eye complaints ENT: Reports system reviewed and no additional complaints, except as documented, Reports as per HPI and Reports headache(s) Cardiovascular: Cardiovascular: Reports as per HPI and Reports no additional cardiovascular complaints Respiratory: Respiratory: Reports as per HPI and Reports no additional respiratory complaints Gastrointestinal: Gastrointestinal: Reports as per HPI and Reports no additional gastrointestinal complaints Genitourinary: Genitourinary: Reports no additional female genitourinary complaints and Reports as per HPI Musculoskeletal: Musculoskeletal: Reports no additional musculoskeletal complaints and Reports back pain Neurologic: Reports system reviewed and no additional complaints, except as documented, Reports as per HPI and Reports headache(s) Psychiatric: Psychiatric: Reports no additional psychiatric complaints and Reports as per HPI [facility] Past Medical History Medical History Abnormal laboratory test result Acquired hypothyroidism Anxiety Benign essential hypertension Depression Diabetes mellitus Diabetes type 2, uncontrolled Dyslipidemia Essential hypertension GERD without esophagitis 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 Mother No problems noted. Sister Lung cancer Brother H/O heart surgery Son Epilepsy Social History Social History Alcohol intake: current Alcohol intake frequency: does not drink Advance Directives: No Advance Directives Information Provided: No Gender identity: female Physical Exam Vital Signs: Vital Signs: Last Vital Signs Temp 98.2 F 02/19/21 12:55 Pulse 89 02/19/21 12:55 Resp 18 02/19/21 12:55 BP 159/48 H 02/19/21 12:55 Pulse Ox 100 02/19/21 12:55 Body Mass Index 35.4 Const: General: cooperative, healthy appearing, comfortable, no acute distress, well developed, alert, awake and Physically active Orientation/consciousness: patient oriented x3 HENMT: Head: Yes normal to inspection, Yes No palpable skull fracture present, Yes normocephalic, Yes atraumatic, No abrasion, No Acrocyanosis present, No Hoskins's sign, No contusion, No cranial bruits, No hematoma, No laceration, No occipital foramen tenderness, No palpable skull fracture, No raccoon eyes, No scalp lesion, Yes scalp tenderness (Parietal), No Temporal artery tenderness present and No periorbital ecchymosis Eyes: General: appearance normal, both eyes and all related structures Neck: Neck: Yes normal visual inspection, Yes full ROM, Yes no lymphadenopathy, Yes no meningeal signs, Yes trachea midline, Yes supple and No tender Chest: Chest palpation & inspection: normal inspection of the chest and normal palpation of entire chest wall Resp: Effort & Inspection: normal respiratory effort and able to speak in complete sentences Auscultation: clear to auscultation bilaterally Cardio: Jugular venous distension: no JVD Heart sounds: S1 normal heart sound present and S2 normal heart sound present GI: Inspection: Yes normal to inspection and No abdominal wall ecchymosis Palpation (GI): Soft to palpation, not firm, nontender, no guarding and not rigid : General: No CVA tenderness and Yes no CVA tenderness Back/Spine/Pelvis: Back: no CVA tenderness, No CVA tenderness and back tenderness (Thoracic and lumbar) Skin: General skin exam: no rashes or lesions noted and elasticity normal Neuro: General: patient oriented x3, gait normal, no meningeal signs and CN's II-XI intact bilaterally Cranial nerves: Yes CN's II-XII intact bilaterally Extrem: General: Yes normal to inspection and Yes full ROM Psych: Appearance: grossly normal, well kempt and not disheveled Course Course Course Narrative: No need for EKG or labs indicated. Patient had mechanical fall. Will just do imaging. Reevaluation(s) Reevaluation #1: Patient had normal gait to the bathroom with her cane. Images came back negative for any fracture or brain bleed. Thoraic spine x-ray shows old fracture. Patient is safe for discharge. Time: 16:12 MDM - Fall [facility] Narrative Medical decision making narrative: Mechanical fall Discharge Plan Discharge Clinical Impression: Accident due to mechanical fall without injury, Back pain Patient Disposition: Home, Self-Care Instructions: Fall Prevention for Older Adults (ED), Back Pain (ED) Additional Instructions: Belkis radiograf?as y tomograf?as computarizadas arrojaron resultados negativos para cualquier fractura o hemorragia cerebral. Regrese al servicio de urgencias por cualquier dolor abdominal, sangrado rectal, v?mitos de nadine, dolor de pecho, dificultad para respirar, dolor de helen, mareos, dolor de courtney, debilidad, orina con nadine, nadine en las heces o cualquier otro s?ntoma preocupante. Nenita un seguimiento con snyder PCP. Prescriptions: New naproxen 500 mg tablet 500 mg PO BID PRN (Reason: pain) Qty: 20 RF: 0 No Action hydrochlorothiazide 25 mg tablet 25 mg PO DAILY 90 Days Qty: 90 RF: 4 omeprazole 20 mg capsule,delayed release(DR/EC) 20 mg PO QAM Qty: 30 RF: 5 hydrocortisone [Anti-Itch (HC)] 1 % cream 1 appl topical BID PRN (Reason: skin irritation) 14 Days Qty: 28.35 RF: 1 pen needle, diabetic [BD Ultra-Fine Aarti Pen Needle] 32 gauge x 5/32 needle 1 ea subcut DAILY Qty: 30 RF: 6 diclofenac sodium 1 % gel 2 g topical QID 30 Days Qty: 100 RF: 4 tramadol 50 mg tablet See Rx Instructions .ROUTE .COMPLEX PRN (Reason: pain) 7 Days Qty: 14 RF: 0 oxycodone 5 mg tablet 5 mg PO Q8H PRN (Reason: pain) 3 Days Qty: 9 RF: 0 cyclobenzaprine 10 mg tablet 10 mg PO BEDTIME Qty: 30 RF: 0 acetaminophen-codeine 300-30 mg tablet 1 tab PO Q8H PRN (Reason: pain) Qty: 10 RF: 0 naproxen 500 mg tablet 500 mg PO BID PRN (Reason: pain) Qty: 10 RF: 0 oxycodone 5 mg tablet 5 mg PO Q6H PRN (Reason: pain) Qty: 10 RF: 0 ibuprofen 600 mg tablet 600 mg PO Q6H PRN (Reason: pain) Qty: 20 RF: 0 oxycodone-acetaminophen [Percocet] 5-325 mg tablet 1 tab PO TID PRN (Reason: pain) Qty: 9 RF: 0 acetaminophen [Arthritis Pain Relief (acetam)] 650 mg tablet extended release 650 mg PO Q12H PRN (Reason: pain) 15 Days Qty: 30 RF: 0 carbamide peroxide [Debrox] 6.5 % drops 5 drp otic (ears) Q12H 4 Days Qty: 15 RF: 0 lidocaine 5 % adhesive patch,medicated 1 patch topical DAILY PRN (Reason: pain (scale score 7-10)) 15 Days Qty: 15 RF: 0 triamcinolone acetonide 0.1 % cream 1 appl topical BID 10 Days Qty: 15 RF: 0 tramadol 50 mg tablet 50 mg PO BID PRN (Reason: pain) Qty: 10 RF: 0 escitalopram oxalate 10 mg tablet 10 mg PO DAILY RF: 0 cetirizine 10 mg tablet 10 mg PO DAILY RF: 0 fluticasone propionate 50 mcg/actuation spray,suspension 1 spray intranasal DAILY RF: 0 levothyroxine 150 mcg tablet 150 mcg PO DAILY RF: 0 doxepin 10 mg capsule 10 mg PO BEDTIME RF: 0 gabapentin 300 mg capsule 300 mg PO BID RF: 0 hydroxyzine HCl 25 mg tablet 25 mg PO Q8H PRN (Reason: anxiety) RF: 0 lactulose 20 gram/30 mL solution 20 g PO TID RF: 0 dicyclomine 20 mg tablet 20 mg PO TID RF: 0 clobetasol 0.05 % ointment 1 appl topical DAILY Qty: 45 RF: 11 Myrbetriq 25 mg tablet extended release 24 hr 25 mg PO DAILY RF: 0 FreeStyle Lite Strips Strip 1 strip miscellaneous TID 90 Days Qty: 300 RF: 2 alcohol swabs [Alcohol Pads] Pads, Medicated 1 pad topical .COMPLEX Qty: 200 RF: 6 atorvastatin 20 mg tablet 20 mg PO DAILY 90 Days Qty: 90 RF: 2 Trulicity 0.75 mg/0.5 mL pen injector 0.75 mg subcut QWEEK 30 Days Qty: 2.5 RF: 6 Lantus Solostar U-100 Insulin 100 unit/mL (3 mL) insulin pen 12 unit subcut DAILY 30 Days Qty: 15 RF: 3 (DME) lancets [FreeStyle Lancets] 28 gauge misc See Rx Instructions .ROUTE .MEDSUPPLY Qty: 300 RF: 2 metformin 500 mg tablet 1,000 mg PO BID 30 Days Qty: 120 RF: 5 Referrals: Yael Alex MD [Primary Care Provider] - 2 days (Back pain after fall no acute fracture. Head CT cervical spine negative for any brain bleed or neck fracture) Interventions: ED Discharge Assessment Last Done: 02/19/21 16:42 Discharge Date/Time: 02/19/21 16:44 Print Language: Bulgarian
[2021-02-19] MEDS: Ibuprofen 800 MG TABLET PO (16:27)
== END 2021-02-19 16:44 | disposition home or self-care (01) ==
PROVIDERS: Emergency Provider Emergency Medicine; PCP Internal Medicine
DX: M54.5 Low back pain (principal); M54.6 Pain in thoracic spine; E11.9 Type 2 diabetes mellitus without complications; I10 Essential (primary) hypertension; Z91.81 History of falling; Z79.4 Long term (current) use of insulin
CPT/HCPCS: 70450; 72072; 72100; 72125; 99283; 99284

== ENCOUNTER 2021-03-15 13:14 | Outpatient (REF) | payer MEDICARE, SELFPAY | END 2021-03-15 13:15 | disposition home or self-care (01) | LOC: HO.XRAY 13:14 | PROVIDERS: PCP Internal Medicine; Visit Provider Orthopaedic Surgery | DX: Z13.89 Encounter for screening for other disorder (principal) ==

== ENCOUNTER 2021-03-21 11:00 | Outpatient (RCR) | payer MEDICARE, SELFPAY ==
[2021-01-17 11:05] VITALS: BP 140/80
--- NOTE | 2021-01-17 13:08 | MHC.PT.EP ---
[facility] [place] Office [place] Office [place] Office [address] [phone] F: [phone] F: [phone] F: [phone] F: [phone] Physical Therapy Plan of Care Date of Evaluation: Date of Surgery: NA Diagnosis: R SH impingement syndrome, R SH OA Assessment: Crystal is a 65 y.o. woman referred to PT for R SH impingement syndrome and OA. On PT examination she presents with 9/10 pain radiating to her hand, TTP R SH anterior joint line, decreased B Shoulder ROM R>L, decreased SH strength R>L, significant postural abnormalities, and gait deviations. Symptoms suggestive of cervical derangement overlapped with R shoulder impingement. She would benefit from skilled PT for the aforementioned impairments to improve her tolerance for ADLs such as cooking, cleaning, dressing, and self care. She is motivated for PT. Frequency and Duration: The patient will be seen 2x week for 6 weeks Short Term Goals: 1. In 2 weeks patient will present with centralized pain to improve her ability for showering and self care. 2. In 3 weeks patient will present with improved SH ROM in all planes to improve her ability for dressing herself and doing her hair. Fpc Goals: 1. In 5 weeks patient will demonstrate good postural awareness and the ability to self correct every 30 minutes. 2. In 6 weeks patient will improve SH Strength by 1 MMT to improve her ability for cooking and cleaning. 2. In 6 weeks patient will be independent with [facility] for symptoms management at home following d/c. Treatment Plan: Modalities to reduce pain, spasms and effusion. Manual therapy to restore motion and function. Therapeutic exercise to improve strength and flexibility. Neuromuscular re-education for posture and balance. Therapeutic activities to return to functional activities of daily living. Electronically signed by: Eunice Batista PT DPT Please sign and return to therapist. Thank you for your referral.
--- NOTE | 2021-03-21 15:37 | MHC.PT.DC ---
[facility] [place] Office [place] Office [place] Office [address] Killian Koch [address] [phone] F: [phone] F: [phone] F: [phone] F: [phone] Physical Therapy Discharge Report Diagnosis: R SH impingement syndrome, R SH OA Date of Surgery: NA Date of Evaluation: 01/17/21 Date of Discharge: 03/21/21 Treatments to Date: 6 Cancellations to Date: 1 No Shows to Date: 2 Discharge Status: Improved Function Independent with HEP Discharge Summary: REVEIW HEP and given pictures in swiss to cont at home. Electronically signed by: Eunice Batista PT DPT Please sign and return to therapist. Thank you for your referral.
== END 2021-03-21 15:37 | disposition home or self-care (01) ==
LOC: HO.PT 11:00
PROVIDERS: PCP Internal Medicine; Visit Provider Internal Medicine
DX: M75.41 Impingement syndrome of right shoulder (principal); M19.011 Primary osteoarthritis, right shoulder
CPT/HCPCS: 97110; 97112; 97162

== ENCOUNTER 2021-03-29 13:01 | Outpatient (REF) | payer MEDICARE, SELFPAY ==
--- NOTE | ~2021-03-29 | MR_ITS ---
EXAMINATION: MR SHOULDER WITH CONTRAST, RIGHT CLINICAL INFORMATION: Impingement syndrome right shoulder. COMPARISON: X-ray of the right shoulder August 2020 TECHNIQUE: MRI of the shoulder was performed following the intra-articular administration of a dilute gadolinium-containing solution (arthrogram) on a high-field scanner. FINDINGS: ROTATOR CUFF: Supraspinatus: There is an insertional tear of the middle third/anterior third portion of the supraspinatus tendon which appears high-grade partial-thickness versus full-thickness. The tear does not clearly extend through the bursal surface. The tear measures approximately 9 mm medial to lateral and 8 mm anterior to posterior. There is mild generalized atrophy of the muscle without fatty infiltration. The remaining rotator cuff muscles and tendons are normal. BICEPS: Normal. CORACOACROMIAL ARCH: The undersurface of the acromion is curved with no subacromial spur. There is mild arthrosis of the acromioclavicular joint. BURSA: Trace non-gadolinium fluid within the subacromial-subdeltoid bursa compatible with a mild bursitis. LABRUM/CAPSULE: Normal. GLENOHUMERAL JOINT/MARROW: Normal. MR/MR shoulder RT w con IMPRESSION: Insertional tear of the supraspinatus which appears high-grade partial-thickness versus full-thickness. There may be some bursal-sided fibers still intact. Mild arthrosis of the acromioclavicular joint. Trace subacromial-subdeltoid bursitis.
--- NOTE | ~2021-03-29 | FL_ITS ---
PROCEDURE: XR ARTHROGRAM SHOULDER, RIGHT CLINICAL INFORMATION: Impingement syndrome of right shoulder. COMPARISON: None TECHNIQUE: Fluoroscopic-guided right shoulder intra-articular injection for MRI. FINDINGS: Informed consent was obtained from the patient prior to the procedure. During this process, the procedure and potential alternatives were explained, along with the intended outcome and benefits. The risks of the procedure, as well as the risk of not doing the procedure, were discussed. The patient was given the opportunity to ask questions regarding the procedure and appeared competent to make medical decisions. A signed consent form which documents this discussion was placed in the medical record. Using sterile technique and fluoroscopic guidance a 22-gauge spinal needle was directed into the inferior third of the right glenohumeral joint. A small amount of contrast was administered demonstrating intra-articular positioning of the needle. A total of 20 mL of a mixture of 20 mL of sterile saline with 0.05 mL of Gadavist was then instilled within the joint space. Patient tolerated procedure without difficulty. FLUOROSCOPY TIME: 0.5 minutes. DOSE AREA PRODUCT: 2.026 Gy-cm2 (short-centimeter squared). FL/FL arthrogram shoulder RT IMPRESSION: Intra-articular injection of the right shoulder joint for MRI.
== END 2021-03-29 13:02 | disposition home or self-care (01) ==
LOC: HO.XRAY 13:01
PROVIDERS: PCP Internal Medicine; Visit Provider Orthopaedic Surgery
DX: M75.41 Impingement syndrome of right shoulder (principal)
CPT/HCPCS: 23350; 73040; 73222; A9585

== ENCOUNTER 2021-04-20 10:05 | Outpatient (REF) | payer MEDICARE, SELFPAY ==
[2021-04-20 13:58] LABS: Appearance Urine CLEAR; Color Urine YELLOW; Glucose Urine UA NEG (NEG); Leukocyte Esterase Urine TRACE (NEG); Nitrite Urine NEG (NEG); PH 5.5 (5.0-8.0); Specific Gravity - Urine >= 1.030 (1.005-1.025); UACC Culture Trigger YES; Urine Blood NEG (NEG); Urine Ketones NEG (NEG); Urine Protein NEG (NEG-TRACE)
[2021-04-20 14:09] LABS: Mucus Urine 1+ /LPF; Squamous Epithelial Cell Urine 1+ /LPF
== END 2021-04-20 10:06 | disposition home or self-care (01) ==
LOC: HO.LAB 10:05
PROVIDERS: Absent Provider Internal Medicine; PCP Internal Medicine; Visit Provider Nurse Practitioner Gerontology
DX: E11.65 Type 2 diabetes mellitus with hyperglycemia (principal); E78.5 Hyperlipidemia, unspecified; E66.9 Obesity, unspecified; Z68.38 Body mass index [BMI] 38.0-38.9, adult; I10 Essential (primary) hypertension; Z79.4 Long term (current) use of insulin; Z71.3 Dietary counseling and surveillance
CPT/HCPCS: 81001; 82947; 83036; 87086; 99212

== ENCOUNTER → 2021-05-01 08:42 | Outpatient (BNVA) | payer MEDICARE, SELFPAY | PROVIDERS: PCP Internal Medicine; Visit Provider Advanced Practice Midwife | DX: N80.4 Endometriosis of rectovaginal septum and vagina (principal); R30.0 Dysuria | CPT/HCPCS: 99212 ==

== ENCOUNTER → 2021-05-04 12:47 | Outpatient (BNVA) | payer MEDICARE, SELFPAY | PROVIDERS: PCP Internal Medicine; Visit Provider Physician Assistant | DX: M75.101 Unspecified rotator cuff tear or rupture of right shoulder, not specified as traumatic (principal); M12.811 Other specific arthropathies, not elsewhere classified, right shoulder | CPT/HCPCS: 99212 ==

== ENCOUNTER 2021-05-10 09:55 | Outpatient (REF) | payer MEDICARE, SELFPAY ==
--- NOTE | ~2021-05-10 | MM_ITS ---
EXAMINATION: MM SCREENING DIGITAL BREAST TOMOSYNTHESIS, BILATERAL CLINICAL INFORMATION: Screening. Asymptomatic. The lifetime risk of breast cancer based on the Tyrer-Cuzick Model is 4%. COMPARISON: Mammography: 02/07/2020, 02/01/2019, 01/07/2018 TECHNIQUE: Digital breast tomosynthesis is performed in both the craniocaudal and mediolateral oblique views along with computer-aided detection (CAD). Synthesized 2D images are generated from the tomosynthesis. Additional left MLO view is provided. FINDINGS: The breasts are almost entirely fatty (ACR BI-RADS breast composition Category a). There are no significant masses, abnormal calcifications, or other abnormalities. Background stromal markings are stable. No developing density. The axilla and skin contours are unremarkable. MM/MM tomosynthesis screening BI IMPRESSION: No mammographic evidence of malignancy. ASSESSMENT: BI-RADS 1: Negative RECOMMENDATION: Routine annual mammography screening. This patient's information was entered into a reminder system with a target due date for their next mammogram.
== END 2021-05-10 09:56 | disposition home or self-care (01) ==
LOC: HO.MAMMO 09:55
PROVIDERS: Visit Provider Internal Medicine
DX: Z12.31 Encounter for screening mammogram for malignant neoplasm of breast (principal)
CPT/HCPCS: 77063; 77067

== ENCOUNTER 2021-06-14 11:00 | Outpatient (RCR) | payer MEDICARE, SELFPAY ==
--- NOTE | 2021-05-29 11:47 | MHC.PT.EP ---
[facility] [place] Office [place] Office [place] Office [address] Killian Koch [address] [phone] F: [phone] F: [phone] F: [phone] F: [phone] Physical Therapy Plan of Care Date of Evaluation: Date of Surgery: Diagnosis: R shoulder dysfunction Assessment: 65 y/o RHD female referred to PT with dysfunction of R RTC resulting in pain and difficulty with R lifting her R arm, cooking, cleaning, dressing, grooming and sleeping. MRI shows partial thickness tear of supraspiantus. She anticipate surgery after the . Examination shows decreased R shoulder AROM, decreased R shoulder PROM (assessed in sitting as pt refused supine position), decreased B UE strength, pain, and impaired postural awareness. Recommend PT 2x/week for 5 weeks to address impairments, implement HEP, and optimize functional mobility. Frequency and Duration: The patient will be seen 2x/week for 5 weeks Short Term Goals: 3 weeks 1. I with HEP 2. 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 In 5 weeks patient will demonstrate good postural awareness and the ability to self correct every 30 minutes. 2. In 5weeks patient will improve SH Strength by 1 MMT to improve her ability for cooking and cleaning. 2. In 5 weeks patient will be independent with HEP for symptoms management at home following d/c. Treatment Plan: Modalities to reduce pain, spasms and effusion. Manual therapy to restore motion and function. Therapeutic exercise to improve strength and flexibility. Neuromuscular re-education for posture and balance. Therapeutic activities to return to functional activities of daily living. Electronically signed by: Romy Reno PT Please sign and return to therapist. Thank you for your referral.
--- NOTE | 2021-06-26 11:45 | MHC.PT.DC ---
[facility] [place] Office [place] Office [place] Office [address] Killian Koch 140 [facility] [phone] F: [phone] F: [phone] F: [phone] F: [phone] Physical Therapy Discharge Report Diagnosis: R shoulder dysfunction Date of Surgery: Date of Evaluation: 05/29/21 Date of Discharge: 06/26/21 Treatments to Date: 3 Cancellations to Date: 2 No Shows to Date: 2 Discharge Status: Visit Non-compliance Discharge Summary: Pt d/c secondary to noncompliance with scheduling policy Electronically signed by: Romy Reno PT Please sign and return to therapist. Thank you for your referral.
== END 2021-06-26 11:46 | disposition home or self-care (01) ==
LOC: HO.PT 11:00
PROVIDERS: PCP Internal Medicine; Visit Provider Orthopaedic Surgery
DX: M67.911 Unspecified disorder of synovium and tendon, right shoulder (principal)
CPT/HCPCS: 97110; 97162

== ENCOUNTER → 2021-07-05 11:25 | Outpatient (BNVA) | payer MEDICARE, SELFPAY | PROVIDERS: PCP Internal Medicine; Visit Provider Orthopaedic Surgery | DX: M75.01 Adhesive capsulitis of right shoulder (principal) | CPT/HCPCS: 99212 ==

== ENCOUNTER 2021-07-12 10:28 | Outpatient (REF) | payer MEDICARE, SELFPAY ==
[2021-07-12 11:23] LABS: Appearance Urine CLEAR; Color Urine YELLOW; Glucose Urine UA NEG (NEG); Leukocyte Esterase Urine NEG (NEG); Nitrite Urine NEG (NEG); Specific Gravity - Urine 1.025 (1.005-1.025); Urine Blood NEG (NEG); Urine Ketones NEG (NEG); Urine Protein NEG (NEG-TRACE)
[2021-07-12 11:29] LABS: Hemoglobin 13.4 g/dl (12.0-16.0); Imm Gran Abs Auto 0.02 X10*3/uL (0.00-0.03); Imm Gran Pct Auto 0.3 % (0.0-0.4); MANUAL DIFF FLAG SCAN; Red Cell Distribution Width 13.1 % (11.0-16.0); SCAN SMEAR FLAG 1
[2021-07-12 11:32] LABS: Basophils Absolute Auto 0.1 X10*3/uL (0.0-0.2); Basophils Percent Auto 1.1 % (0-2); Eosinophils Absolute Auto 0.5 X10*3/uL (0.0-0.4); Eosinophils Percent Auto 7.5 % (0-4); Hematocrit 40.4 % (37.0-47.0); Lymphocytes Absolute Auto 1.9 X10*3/uL (1.2-4.9); Lymphocytes Percent Auto 29.7 % (20-40); Mean Corpuscular HGB Conc 33.2 g/dl (31.0-35.0); Mean Corpuscular Hemoglobin 28.3 pg (27.0-33.0); Mean Corpuscular Volume 85.4 fL (80.0-98.0); Mean Platelet Volume 13.1 fL (9.4-12.3); Monocytes Absolute Auto 0.6 X10*3/uL (0.1-1.2); Monocytes Percent Auto 9.2 % (2-11); Neutrophils Absolute Auto 3.4 x10*3/uL (2.0-8.3); Neutrophils Percent Auto 52.2 % (45-73); Platelet Count 196 X10*3/uL (160-400); Red Blood Count 4.73 X10*6/uL (4.20-5.50); White Blood Count 6.4 X10*3/uL (4.8-10.8)
[2021-07-12 11:47] LABS: Alanine Aminotransferase 33 U/L (0-31); Albumin Level 4.1 g/dL (3.5-5.0); Alkaline Phosphatase 110 U/L (39-117); Anion Gap 12 (12-20); Aspartate Amino Transferase 34 U/L (5-31); Bilirubin Total 0.5 mg/dL (0.0-1.0); Blood Urea Nitrogen 19 mg/dL (9-16); Calcium 9.6 mg/dL (8.4-10.2); Carbon Dioxide 31 mmol/L (22-29); Chloride 103 mmol/L (96-108); Cholesterol 183 mg/dL; Estimated Glomerular Filt Rate > 60; Glucose Fasting 113 mg/dL (60-99); HDL Cholesterol 42 mg/dL; LDL Cholesterol Calculated 123 mg/dl; Potassium 4.1 mmol/L (3.3-5.1); Sodium 142 mmol/L (135-145); Total Protein 7.8 g/dL (6.5-8.0); Triglycerides 94 mg/dL
[2021-07-12 11:50] LABS: PLT ABN DIST 1
[2021-07-12 11:51] LABS: SLIDE REVIEW VERIFIED
[2021-07-12 11:56] LABS: Creatinine Urine 161.38 mg/dL; Microalbum/Creatinine Ratio Ur 6.1 ug/mg cr
[2021-07-12 12:12] LABS: Thyroid Stimulating Hormone 1.57 uIU/mL (0.32-4.0)
[2021-07-16 14:06] LABS: Vitamin D 25-OH, D2 <4 ng/mL; Vitamin D 25-OH, D3 39 ng/mL; Vitamin D 25-OH, Total 39 ng/mL (30-100)
== END 2021-07-12 10:29 | disposition home or self-care (01) ==
LOC: HO.LAB 10:28
PROVIDERS: PCP Internal Medicine; Visit Provider Internal Medicine
DX: E55.9 Vitamin D deficiency, unspecified (principal); D64.9 Anemia, unspecified; M47.816 Spondylosis without myelopathy or radiculopathy, lumbar region; E11.9 Type 2 diabetes mellitus without complications; E03.9 Hypothyroidism, unspecified; E78.5 Hyperlipidemia, unspecified; I10 Essential (primary) hypertension; R30.0 Dysuria
CPT/HCPCS: 36415; 80053; 80061; 81003; 82043; 82306; 84443; 85025

== ENCOUNTER → 2021-08-16 10:16 | Outpatient (BNVA) | payer OTHER, SELFPAY | PROVIDERS: PCP Internal Medicine; Visit Provider Orthopaedic Surgery | DX: M75.101 Unspecified rotator cuff tear or rupture of right shoulder, not specified as traumatic (principal) | CPT/HCPCS: 99212 ==

== ENCOUNTER → 2021-08-27 09:08 | Outpatient (BNVA) | payer MEDICARE, SELFPAY | PROVIDERS: PCP Internal Medicine; Visit Provider Nurse Practitioner Gerontology | DX: E11.9 Type 2 diabetes mellitus without complications (principal); E78.5 Hyperlipidemia, unspecified; E66.9 Obesity, unspecified; K59.00 Constipation, unspecified; I10 Essential (primary) hypertension; Z79.4 Long term (current) use of insulin; Z68.38 Body mass index [BMI] 38.0-38.9, adult | CPT/HCPCS: 82947; 83036; 99212 ==

== ENCOUNTER 2021-09-09 10:09 | Emergency (ER) | payer MEDICARE, SELFPAY ==
--- NOTE | ~2021-09-09 | XR_ITS ---
EXAMINATION: XR LUMBOSACRAL SPINE CLINICAL INFORMATION: Back pain COMPARISON: X-ray 02/19/2021 TECHNIQUE: Three views of the lumbosacral spine. FINDINGS: 5 nonrib-bearing lumbar type vertebral bodies. Stable mild retrolisthesis of L2 on L3. In the lumbar spine, the vertebral body heights are maintained. No evidence of acute fracture. There is mild T12 vertebral body height loss, appearing similar to previous. Disc degeneration at T11-T12, T12-L1, similar to previous. Mild endplate spurring in the lumbar spine. Mild facet degeneration in the lower lumbar spine. Surgical clip in the right upper quadrant. SI joints are intact. Suspected mild bilateral hip joint arthritis. XR/XR lumbar spine 2-3V IMPRESSION: 1. Stable T12 vertebral body height loss, chronic in nature. 2. Lumbar spondylosis. No. No evidence of acute fracture.
[2021-09-09 10:17] VITALS: BP 194/79; PULSE 80; RESP 16; TEMP 36.5; O2SAT 98; BMI 35.5
--- NOTE | 2021-09-09 10:57 | ED_ITS ---
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 Patient tells me that she had injury as a child and since then has had intermittent chronic back pain. Sometime she feels that the left leg is swollen in the thigh area. There is no associated numbness or tingling. No bowel or bladder incontinence. No saddle anesthesia. No fevers or chills. No urinary symptoms or nausea or vomiting. Taking Tylenol home with continued pain. Patient complaining is of scratchy throat throughout the day for the last 3 days with no sore throat, fever, runny nose. Patient does have some sneezing associated with this. She is scheduled to have a rotator cuff repair in September and is concerned that she may have COVID-19 so would like to be tested. Related Data Home Medications Medication Instructions Recorded Confirmed cetirizine 10 mg tablet 10 mg PO DAILY 06/26/20 07/12/21 escitalopram oxalate 10 mg tablet 10 mg PO DAILY 06/26/20 07/12/21 fluticasone propionate 50 1 spray INTRANASAL DAILY 06/26/20 07/12/21 mcg/actuation nasal spray,suspension doxepin 10 mg capsule 10 mg PO BEDTIME cap 07/25/20 07/12/21 gabapentin 300 mg capsule 300 mg PO BID cap 12/15/20 07/12/21 hydroxyzine HCl 25 mg tablet 25 mg PO Q8H PRN tab 12/15/20 07/12/21 mirabegron 25 mg tablet,extended 25 mg PO DAILY 12/15/20 07/12/21 release 24 hr Previous Rx's Medication Instructions Recorded acetaminophen 650 mg 650 mg PO Q12H PRN 15 Days #30 tab 07/14/20 tablet,extended release (Arthritis Pain Relief (acetaminophen) ER) carbamide peroxide 6.5 % ear drops 5 drp OTIC (EARS) Q12H 4 Days #15 07/14/20 (Debrox) ml lidocaine 5 % topical patch 1 patch TOPICAL DAILY PRN 15 Days 08/21/20 #15 ea triamcinolone acetonide 0.1 % 1 appl TOPICAL BID 10 Days #15 g 08/21/20 topical cream naproxen 500 mg tablet 500 mg PO BID PRN #10 tab 08/29/20 hydrocortisone 1 % topical cream 1 appl TOPICAL BID PRN 14 Days 09/01/20 (Anti-Itch (hydrocortisone)) #28.35 g alcohol swabs (Alcohol Pads) 1 pad TOPICAL .COMPLEX #200 pad 12/15/20 insulin glargine 100 unit/mL (3 12 unit (0.12 mL) SUBCUT DAILY 30 12/15/20 mL) subcutaneous pen (Lantus Days #15 ml Solostar U-100 Insulin) lancets 28 gauge (FreeStyle #300 ea 12/15/20 Lancets) alprazolam 1 mg tablet (Xanax) 1 - 2 mg PO ONCE #2 tab 03/20/21 diclofenac sodium 1 % topical gel 2 g TOPICAL QID 30 Days #100 g 03/26/21 toilet seat elevator #1 ea 04/10/21 pen needle, diabetic 32 gauge x 1 ea SUBCUT DAILY #30 ea 04/16/2132 (BD Ultra-Fine Aarti Pen Needle) clobetasol 0.05 % topical ointment 1 appl TOPICAL DAILY #45 g 05/01/21 metformin 500 mg tablet 1,000 mg PO BID #120 tab 06/04/21 Synthroid 150 mcg tablet 150 mcg PO DAILY 90 Days #90 tab NS 06/05/21 (levothyroxine) dulaglutide 0.75 mg/0.5 mL 0.75 mg (0.5 mL) SUBCUT QWEEK 30 06/05/21 subcutaneous pen injector Days #2 ml (Trulicity) hydrochlorothiazide 25 mg tablet 25 mg PO DAILY 90 Days #90 tab 06/05/21 omeprazole 20 mg capsule,delayed 20 mg PO QAM #30 cap 06/05/21 release atorvastatin 20 mg tablet 20 mg PO DAILY 90 Days #90 tab 07/12/21 lidocaine 5 % topical ointment 1 appl TOPICAL BEDTIME PRN 30 Days 07/12/21 #30 g tramadol 50 mg tablet 50 mg PO BID PRN #10 tab 07/12/21 cyclobenzaprine 10 mg tablet 10 mg PO BEDTIME #30 tab 12/26/21 dicyclomine 20 mg tablet 20 mg PO TID 30 Days #90 tab 08/07/21 blood sugar diagnostic (FreeStyle 1 strip MISCELLANEOUS TID 90 Days 08/15/21 Lite Strips) #300 strip docusate sodium 100 mg capsule 100 mg PO DAILY #30 cap 08/27/21 (Colace) cyclobenzaprine 10 mg tablet 10 mg PO TID PRN #10 tab 09/09/21 lidocaine 5 % topical patch 1 patch TOPICAL DAILY #15 ea 09/09/21 (Lidoderm) naproxen 500 mg tablet 500 mg PO BID PRN #20 tab 09/09/21 Allergies Allergy/AdvReac Type Severity Reaction Status Date / Time ciprofloxacin [CIPROFLOXACIN] Allergy Mild HIVES,RASH Verified 08/27/21 09:50 Penicillins [PENICILLINS] Allergy Mild RASH Verified 08/27/21 09:50 cephalexin [From KEFLEX] Allergy Unknown rash Verified 08/27/21 09:50 enalapril [ENALAPRIL] Allergy Unknown Cough Verified 08/27/21 09:50 levothyroxine sodium Allergy Unknown RASH WITH Verified 08/27/21 09:50 [LEVOTHYROXINE SODIUM] GENERIC MED nitrofurantoin Allergy Unknown RASH Verified 08/27/21 09:50 [NITROFURANTOIN] Sulfa (Sulfonamide Allergy Unknown RASH Verified 08/27/21 09:50 Antibiotics) [SULFA (SULFONAMIDE ANTIBIOTICS)] sulfamethoxazole Allergy Unknown rash Verified 08/27/21 09:50 [From BACTRIM] trimethoprim [From BACTRIM] Allergy Unknown rash Verified 08/27/21 09:50 ALL GENERIC MEDS Allergy Unknown UNKNOWN Uncoded 08/27/21 09:50 SHRIMP Allergy Unknown Unknown Uncoded 08/27/21 09:50 Review of Systems Review of Systems: Yes all other systems are reviewed and are negative Constitutional: Constitutional: Reports no additional constitutional complaints, Denies body ache(s), Denies chills, Denies fever(s), Denies headache(s) and Denies weakness Eyes: Eyes: Reports no additional eye complaints and Denies change in vision ENT: Reports system reviewed and no additional complaints, except as documented, Denies dizziness, Denies headache(s), Denies nasal congestion, Denies nasal discharge and Denies neck pain Comments: +throat scratching Cardiovascular: Cardiovascular: Reports no additional cardiovascular complaints, Denies chest pain, Denies leg edema and Denies dyspnea Respiratory: Respiratory: Reports no additional respiratory complaints, Denies cough and Denies dyspnea Gastrointestinal: Gastrointestinal: Reports no additional gastrointestinal complaints, Denies abdominal pain, Denies diarrhea, Denies nausea and Denies vomiting Genitourinary: Genitourinary: Reports no additional female genitourinary complaints and Denies urinary incontinence Musculoskeletal: Musculoskeletal: Reports no additional musculoskeletal complaints, Reports back pain, Denies arthralgias, Denies joint swelling, Denies neck pain, Denies numbness and Denies tingling Integumentary/Breasts: Skin/Breast: Reports system reviewed and no additional complaints, except as docu and Denies rash Neurologic: Reports system reviewed and no additional complaints, except as documented, Denies Abnormal speech present, Denies dizziness, Denies headache(s), Denies numbness, Denies tingling and Denies weakness PMFSH Past Medical History Attestation statement: The following information was validated with the patient. Source: old records reviewed and nursing notes reviewed Medical History Abnormal laboratory test result Acquired hypothyroidism Anxiety Benign essential hypertension Depression Diabetes mellitus Diabetes type 2, uncontrolled Dyslipidemia Essential hypertension GERD without esophagitis Hypertension USP (current) use of insulin Lower back pain Lumbar spondylosis Obesity (BMI 30-39.9) Rash Right arm pain Sacroiliac joint disease Surgical History H/O thyroidectomy History of bladder surgery History of cholecystectomy History of esophagogastroduodenoscopy (EGD) Hx of colonoscopy Family History Family History Father No problems noted. Mother Diabetes Sister Lung cancer Brother H/O heart surgery Diabetes Son Epilepsy Social History Social History Household Members: Significant Other Housing: Apartment Alcohol intake: never Patient Tobacco Use Status: Never used Tobacco e-Cigarette/Vaping Use: Never Used Second Hand Smoke Exposure: No Advance Directives: No Advance Directives Information Provided: No service: No Current occupational status: disabled Gender identity: Female Physical Exam ED Vital Signs: Vital Signs - 24 hr 09/09/21 10:17 Temperature 97.7 F Pulse Rate 80 Respiratory Rate 16 Blood Pressure 194/79 H Pulse Oximetry 98 BMI result Body Mass Index 35.5 Const General: cooperative, healthy appearing, comfortable and no acute distress Orientation/consciousness: patient oriented x3 Limitations: language barrier HENMT Head: Yes normal to inspection Ears: hearing grossly normal bilaterally and TM's normal bilaterally General nose exam: Normal external nose present Face and sinus: Yes normal facial exam Throat: Yes posterior oropharynx normal, Yes tonsils normal and Yes uvula midline Eyes General: appearance normal, both eyes and all related structures Pupils: Equal, round and reactive pupils present Neck Neck: Yes normal visual inspection, Yes full ROM, Yes no lymphadenopathy and Yes no meningeal signs Chest Chest palpation & inspection: normal inspection of the chest Resp Effort & Inspection: normal respiratory effort Auscultation: clear to auscultation bilaterally Cardio Rate: regular rate Peripheral pulses: Peripheral pulses 2+ throughout GI Inspection: Yes normal to inspection General: Yes no CVA tenderness Back/Spine/Pelvis Other: Tenderness over the lumbar spine with no step-offs deformities. Tenderness with compression over the left SI joint. Pain is worsened with straight leg raise on the left side. Back: no CVA tenderness Skin General skin exam: no rashes or lesions noted Neuro General: patient oriented x3 and no meningeal signs Cranial nerves: Yes CN's II-XII intact bilaterally, Yes Equal, round and reactive pupils present, Yes Bilaterally intact EOM present, Yes Nystagmus not present, Yes Normal facial strength present and Yes Midline tongue present Cognition (Neuro): normal cognition Speech: No Abnormal speech present Gait exam (Neuro): Normal gait present Motor exam (neuro): 5/5 motor strength present throughout Sensory Exam: Normal double simultaneous stimulation for sensation Deep tendon reflexes (DTR's): Right patellar reflex intensity grade: 2+ and Left patellar reflex intensity grade: 2+ Extrem Other: No appreciable swelling over the left side General: Yes normal to inspection, Yes no pedal edema and Yes no calf tenderness Course Course Course Narrative: 65-year-old female here with reports of left lower back pain for the last 2 weeks with no known injury or trauma with radiation down the left leg. Patient also feels like maybe some swelling of her thigh which is intermittent. No associated and paresthesias, saddle anesthesia, incontinence, fever. Normal neuro exam. No appreciable swelling. Tenderness over the lower lumbar spine and left SI joint with compression with pain that is worsened with straight leg raise on the left side. Will check x-rays. Patient also complaining of a scratchy throat for the last few days with some sneezing. She is concerned that she may have COVID and has an upcoming surgery soap like to be COVID tested. Her exam is benign. Will check COVID screen 1240- X-ray show 1. Stable T12 vertebral body height loss, chronic in nature. ? 2. Lumbar spondylosis. No. No evidence of acute fracture. -exam is most consistent with sciatica. Will treat with NSAIDs, muscle relaxant, medicated patches. Reviewed worrisome signs and symptoms of when to return to the emergency department. Comfortable discharge home. Medical Decision Making MDM Narrative Medical decision making narrative: Less likely cauda equina with no incontinence, saddle anesthesia, and normal neurological exam Less likely epidural abscess with no history of immunocompromise state, no reports of fever and normal neurological exam Medical Records Medical records reviewed: Yes I reviewed the patient's medical records. Lab Data Lab results reviewed: Yes I reviewed the patient's lab results. Labs: Lab Results 09/09/21 Range/Units 11:14 COVID-19 ([place]) Negative (Negative) COVID-19 Clin Com See Note Imaging Data lkumbar xray: Attestation: I personally reviewed and interpreted this imaging study as follows: Radiologist's impression: TECHNIQUE: Three views of the lumbosacral spine. FINDINGS: 5 nonrib-bearing lumbar type vertebral bodies. Stable mild retrolisthesis of L2 on L3. In the lumbar spine, the vertebral body heights are maintained. No evidence of acute fracture. There is mild T12 vertebral body height loss, appearing similar to previous. Disc degeneration at T11-T12, T12-L1, similar to previous. Mild endplate spurring in the lumbar spine. Mild facet degeneration in the lower lumbar spine. Surgical clip in the right upper quadrant. SI joints are intact. Suspected mild bilateral hip joint arthritis. XR/XR lumbar spine 2-3V IMPRESSION: 1. Stable T12 vertebral body height loss, chronic in nature. ? 2. Lumbar spondylosis. No. No evidence of acute fracture. Discharge Plan Discharge Clinical Impression: Sciatica Patient Disposition: Home, Self-Care Instructions: Sciatica (ED) Additional Instructions: COVID test is negative Heat or ice to the back Gentle stretching No heavy lifting or bending Prescriptions: New naproxen 500 mg tablet 500 mg PO BID PRN (Reason: pain) Qty: 20 0RF cyclobenzaprine 10 mg tablet 10 mg PO TID PRN (Reason: muscle spasm) Qty: 10 0RF lidocaine [Lidoderm] 5 % adhesive patch,medicated 1 patch topical DAILY Qty: 15 0RF Rx Instructions: leave on most painful area for up to 12 hrs No Action hydrocortisone [Anti-Itch (HC)] 1 % cream 1 appl topical BID PRN (Reason: skin irritation) 14 Days Qty: 28.35 1RF alprazolam [Xanax] 1 mg tablet 1 - 2 mg PO ONCE Qty: 2 0RF diclofenac sodium 1 % gel 2 g topical QID 30 Days Qty: 100 4RF Rx Instructions: apply to single elbow, wrist or hand; for hand includes palm/fingers/back of hand (DME) toilet seat elevator See Rx Instructions .Route .MEDSUPPLY Qty: 1 0RF Rx Instructions: As directed pen needle, diabetic [BD Ultra-Fine Aarti Pen Needle] 32 gauge x 5/32 needle 1 ea subcut DAILY Qty: 30 6RF metformin 500 mg tablet 1,000 mg PO BID Qty: 120 5RF Trulicity 0.75 mg/0.5 mL pen injector 0.75 mg subcut QWEEK 30 Days Qty: 2 6RF hydrochlorothiazide 25 mg tablet 25 mg PO DAILY 90 Days Qty: 90 4RF omeprazole 20 mg capsule,delayed release(DR/EC) 20 mg PO QAM Qty: 30 5RF levothyroxine [Synthroid] 150 mcg tablet 150 mcg PO DAILY 90 Days Qty: 90 0RF atorvastatin 20 mg tablet 20 mg PO DAILY 90 Days Qty: 90 2RF cyclobenzaprine 10 mg tablet 10 mg PO BEDTIME Qty: 30 0RF dicyclomine 20 mg tablet 20 mg PO TID 30 Days Qty: 90 1RF FreeStyle Lite Strips Strip 1 strip miscellaneous TID 90 Days Qty: 300 11RF naproxen 500 mg tablet 500 mg PO BID PRN (Reason: pain) Qty: 10 0RF acetaminophen [Arthritis Pain Relief (acetam)] 650 mg tablet extended release 650 mg PO Q12H PRN (Reason: pain) 15 Days Qty: 30 0RF carbamide peroxide [Debrox] 6.5 % drops 5 drp otic (ears) Q12H 4 Days Qty: 15 0RF lidocaine 5 % adhesive patch,medicated 1 patch topical DAILY PRN (Reason: pain (scale score 7-10)) 15 Days Qty: 15 0RF Rx Instructions: leave on most painful area for up to 12 hrs triamcinolone acetonide 0.1 % cream 1 appl topical BID 10 Days Qty: 15 0RF tramadol 50 mg tablet 50 mg PO BID PRN (Reason: pain) Qty: 10 0RF lidocaine 5 % ointment 1 appl topical BEDTIME PRN (Reason: pain) 30 Days Qty: 30 1RF escitalopram oxalate 10 mg tablet 10 mg PO DAILY 0RF cetirizine 10 mg tablet 10 mg PO DAILY 0RF fluticasone propionate 50 mcg/actuation spray,suspension 1 spray intranasal DAILY 0RF doxepin 10 mg capsule 10 mg PO BEDTIME 0RF gabapentin 300 mg capsule 300 mg PO BID 0RF hydroxyzine HCl 25 mg tablet 25 mg PO Q8H PRN (Reason: anxiety) 0RF Myrbetriq 25 mg tablet extended release 24 hr 25 mg PO DAILY 0RF alcohol swabs [Alcohol Pads] Pads, Medicated 1 pad topical .COMPLEX Qty: 200 6RF Rx Instructions: 1 pad topical five times a day; Lantus Solostar U-100 Insulin 100 unit/mL (3 mL) insulin pen 12 unit subcut DAILY 30 Days Qty: 15 3RF (DME) lancets [FreeStyle Lancets] 28 gauge misc See Rx Instructions .ROUTE .MEDSUPPLY Qty: 300 2RF Rx Instructions: 3 times aday clobetasol 0.05 % ointment 1 appl topical DAILY Qty: 45 2RF Rx Instructions: Use daily for 2 weeks, then every other day for 2 wks, then twice a week docusate sodium [Colace] 100 mg capsule 100 mg PO DAILY Qty: 30 6RF Referrals: Yael Alex MD [Primary Care Provider] - 1 week Interventions: ED Discharge Assessment Last Done: 09/09/21 12:50 Discharge Date/Time: 09/09/21 12:50 Print Language: Japanese
[2021-09-09 11:48] LABS: COVID-19 Test Negative (Negative)
== END 2021-09-09 12:50 | disposition home or self-care (01) ==
PROVIDERS: Nurse Practitioner Family; Emergency Provider Emergency Medicine; PCP Internal Medicine
DX: M54.42 Lumbago with sciatica, left side (principal); R60.0 Localized edema; R05.9 Cough, unspecified; I10 Essential (primary) hypertension; M54.41 Lumbago with sciatica, right side; Z20.822 Contact with and (suspected) exposure to COVID-19; Z79.899 Other long term (current) drug therapy
CPT/HCPCS: 72100; 87635; 99283

== ENCOUNTER → 2021-09-26 08:59 | Outpatient (BNVA) | payer MEDICARE, SELFPAY | PROVIDERS: PCP Internal Medicine; Visit Provider Advanced Practice Midwife | DX: Z13.89 Encounter for screening for other disorder (principal) ==

== ENCOUNTER → 2021-10-04 09:16 | Outpatient (BNVA) | payer MEDICARE, SELFPAY | PROVIDERS: PCP Internal Medicine; Visit Provider Physician Assistant | DX: M75.101 Unspecified rotator cuff tear or rupture of right shoulder, not specified as traumatic (principal) | CPT/HCPCS: 99212 ==

== ENCOUNTER 2021-10-10 07:22 | Day surgery (SDC) | payer MEDICARE, SELFPAY ==
[2021-10-04 13:12] VITALS: BMI 38.4
--- NOTE | 2021-10-08 11:55 | P.CONAN_ITS ---
Documented by User: Radha Julio NP 10/08/21 11:58 HPI - Anesthesia Eval Consult details Narrative: 65yo F for Right Arthroscopic Rotator Cuff Repair *Multiple Med Allergies* PMFSH Active Problems Active Problems: All Active Problems (Updated 10/04/21 @ 13:14 by Thalia Miller RN) Essential hypertension (Acute) Osteoarthritis (arthritis due to wear and tear of joints) (Acute) Elevated LFTs (Acute) Constipation (Acute) GERD (gastroesophageal reflux disease) (Acute) Back pain (Acute) Abnormal laboratory test result (Acute) Hypertension (Acute) Diabetes mellitus (Acute) AC (acromioclavicular) arthritis (Acute) Impacted cerumen of left ear (Acute) Encounter for annual routine gynecological examination (Acute) Vulvar irritation (Acute) Rotator cuff impingement syndrome of right shoulder (Acute) Adhesive capsulitis of right shoulder (Acute) Back pain (Acute) Lichen sclerosus of vulva (Acute) Dysuria (Acute) Rotator cuff tear arthropathy of right shoulder (Acute) Dysfunction of right rotator cuff (Acute) Rotator cuff tear, right (Acute) DM2 (diabetes mellitus, type 2) (Acute) Right arm pain (Acute) Rash (Acute) Depression (Acute) Anxiety (Acute) Sacroiliac joint disease (Acute) Lumbar spondylosis (Acute) Acquired hypothyroidism (Acute) Benign essential hypertension (Acute) Lower back pain (Acute) Obesity (BMI 30-39.9) (Acute) Dyslipidemia (Acute) 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 Mother Diabetes Sister Lung cancer Brother H/O heart surgery Diabetes Son Epilepsy Surgical History Surgical History (Updated 10/04/21 @ 12:58 by Thalia Miller RN) H/O thyroidectomy History of bladder surgery History of cholecystectomy History of esophagogastroduodenoscopy (EGD) Hx of colonoscopy Social History Social History Household Members: Significant Other Housing: Apartment Alcohol intake: never Patient Tobacco Use Status: Never used Tobacco e-Cigarette/Vaping Use: Never Used Second Hand Smoke Exposure: No Use of substances other than those prescribed or required for medical reasons: No Advance Directives Information Provided: Yes (brochure mailed) Advance Directives on File: No service: No Current occupational status: disabled Gender identity: Female Meds Allergies Allergy/AdvReac Type Severity Reaction Status Date / Time enalapril [ENALAPRIL] Allergy Intermediate Cough Verified 10/10/21 08:19 cephalexin [From KEFLEX] Allergy Mild rash Verified 10/10/21 08:19 ciprofloxacin [CIPROFLOXACIN] Allergy Mild HIVES,RASH Verified 10/10/21 08:19 levothyroxine sodium Allergy Mild RASH WITH Verified 10/10/21 08:19 [LEVOTHYROXINE SODIUM] GENERIC MED nitrofurantoin Allergy Mild RASH Verified 10/10/21 08:19 [NITROFURANTOIN] Penicillins [PENICILLINS] Allergy Mild RASH Verified 10/10/21 08:19 sulfamethoxazole Allergy Mild rash Verified 10/10/21 08:19 [From BACTRIM] trimethoprim [From BACTRIM] Allergy Mild rash Verified 10/10/21 08:19 ALL GENERIC MEDS Allergy Mild Rash Uncoded 10/10/21 08:19 SHRIMP Allergy Unknown Unknown Uncoded 10/10/21 08:19 Home Medications Medication Instructions Recorded Confirmed Last Taken Type cetirizine 10 mg tablet 10 mg PO DAILY 06/26/20 10/04/21 Unknown History escitalopram oxalate 10 mg tablet 10 mg PO DAILY 06/26/20 10/04/21 Unknown History fluticasone propionate 50 1 spray INTRANASAL DAILY 06/26/20 10/04/21 Unknown History mcg/actuation nasal spray,suspension doxepin 10 mg capsule 10 mg PO BEDTIME cap 07/25/20 10/04/21 Unknown History gabapentin 300 mg capsule 300 mg PO BID cap 12/15/20 10/04/21 Unknown History hydroxyzine HCl 25 mg tablet 25 mg PO Q8H PRN tab 12/15/20 10/04/21 Unknown History mirabegron 25 mg tablet,extended 25 mg PO DAILY 12/15/20 10/04/21 Unknown History release 24 hr Exam Exam Date and Time: October 08, 2021 1155 Height,Weight and Vital Signs: Height 5 ft 4 in Weight 101.605 kg Pertinent Lab Results Pertinent Lab Results: Laboratory Tests 07/12/21 07/12/21 08/27/21 10:44 10:44 09:50 WBC 6.4 Hgb 13.4 Hct 40.4 Plt Count 196 Sodium 142 Potassium 4.1 Chloride 103 Carbon Dioxide 31 H BUN 19 H Creatinine 0.80 Hgb A1c (Clinic) 6.8 H Assessment and Plan Assessment Anesthesia Assessment: Chart Reviewed Documented by User: Nina Sandra MD 10/10/21 08:36 ON LICENSE OF [facility] Past Medical History Medical History (Updated 10/04/21 @ 13:14 by Thalia Miller RN) Acquired hypothyroidism Anxiety Benign essential hypertension Depression Diabetes type 2, uncontrolled Dyslipidemia GERD without esophagitis 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 Mother Diabetes Sister Lung cancer Brother H/O heart surgery Diabetes Son Epilepsy Family history of problems with anesthesia: No Surgical History Surgical History (Updated 10/04/21 @ 12:58 by Thalia Miller RN) H/O thyroidectomy History of bladder surgery History of cholecystectomy History of esophagogastroduodenoscopy (EGD) Hx of colonoscopy History of Problems with Anesthesia: No Social History Social History Household Members: Significant Other Housing: Apartment Alcohol intake: never Patient Tobacco Use Status: Never used Tobacco e-Cigarette/Vaping Use: Never Used Second Hand Smoke Exposure: No Use of substances other than those prescribed or required for medical reasons: No Advance Directives Information Provided: Yes (brochure mailed) Advance Directives on File: No service: No Current occupational status: disabled Gender identity: Female Meds Allergies Allergy/AdvReac Type Severity Reaction Status Date / Time enalapril [ENALAPRIL] Allergy Intermediate Cough Verified 10/10/21 08:19 cephalexin [From KEFLEX] Allergy Mild rash Verified 10/10/21 08:19 ciprofloxacin [CIPROFLOXACIN] Allergy Mild HIVES,RASH Verified 10/10/21 08:19 levothyroxine sodium Allergy Mild RASH WITH Verified 10/10/21 08:19 [LEVOTHYROXINE SODIUM] GENERIC MED nitrofurantoin Allergy Mild RASH Verified 10/10/21 08:19 [NITROFURANTOIN] Penicillins [PENICILLINS] Allergy Mild RASH Verified 10/10/21 08:19 sulfamethoxazole Allergy Mild rash Verified 10/10/21 08:19 [From BACTRIM] trimethoprim [From BACTRIM] Allergy Mild rash Verified 10/10/21 08:19 ALL GENERIC MEDS Allergy Mild Rash Uncoded 10/10/21 08:19 SHRIMP Allergy Unknown Unknown Uncoded 10/10/21 08:19 Home Medications Medication Instructions Recorded Confirmed Last Taken Type cetirizine 10 mg tablet 10 mg PO DAILY 06/26/20 10/04/21 Unknown History escitalopram oxalate 10 mg tablet 10 mg PO DAILY 06/26/20 10/04/21 Unknown History fluticasone propionate 50 1 spray INTRANASAL DAILY 06/26/20 10/04/21 Unknown History mcg/actuation nasal spray,suspension doxepin 10 mg capsule 10 mg PO BEDTIME cap 07/25/20 10/04/21 Unknown History gabapentin 300 mg capsule 300 mg PO BID cap 12/15/20 10/04/21 Unknown History hydroxyzine HCl 25 mg tablet 25 mg PO Q8H PRN tab 12/15/20 10/04/21 Unknown History mirabegron 25 mg tablet,extended 25 mg PO DAILY 12/15/20 10/04/21 Unknown History release 24 hr Exam Airway Mallampati Class: II TM Dist: >3cm Neck ROM: Full Loose/Missing/Broken Teeth: Yes, Upper and Lower Assessment and Plan Assessment Anesthesia Assessment: Anesthesia Plan Discussed Final Anesthetic Review Family History of Problems with Anesthesia: No History of Problems with Anesthesia: No NPO: Yes ASA Class: III Final Preanesthetic Review: No Changes in Pt Med Stat, Meds/Allgs Chart Reviewed, Consent Obtained/Reviewed and Anes Risks/Benef Reviewed Patient Risk: Intermediate Procedure Risk: Intermediate Anesthetic Plan Anesthetic Plan: GA and Regional Block Disposition: Standard PACU
[2021-10-10] VITALS (10 sets, daily range): BP systolic 151–185; BP diastolic 58–79; PULSE 56–69; RESP 16–20; TEMP 36.1–36.6; O2SAT 92–98
--- NOTE | 2021-10-10 | ECG_ITS ---
Test Reason : dm diabetes Blood Pressure : / mmHG Vent. Rate : 069 BPM Atrial Rate : 069 BPM P-R Int : 172 ms QRS Dur : 092 ms QT Int : 398 ms P-R-T Axes : 008 -01 028 degrees QTc Int : 426 ms Normal sinus rhythm Minimal voltage criteria for LVH, may be normal variant ( R in aVL ) Borderline ECG When compared with ECG of 11-MAR-2020 01:09, No significant change was found Referred By: Radha Julio Electronically Signed By:GURU MCHUGH
[2021-10-10 08:17] LABS: Glucose, Whole Blood 116 mg/dL (60-115)
[2021-10-10] MEDS: Lactated Ringers 1,000 ML 100 ML IVCONT (08:31)
--- NOTE | 2021-10-10 09:09 | MHC.SHP ---
Pre-Procedural Eval Section A Date of Service: 10/10/21 The patient is an INPATIENT: No Changes since office visit: Yes Patient answered all questions; No Cold of Flu in the past 2 weeks, No New Medical Problems and No Changes in Medication The History & Physical has been completed within 30 days and I have reviewed it.: Yes Section B Chief Complaint: rotator tear Allergies: Allergies Allergy/AdvReac Type Severity Reaction Status Date / Time enalapril [ENALAPRIL] Allergy Intermediate Cough Verified 10/10/21 08:19 cephalexin [From KEFLEX] Allergy Mild rash Verified 10/10/21 08:19 ciprofloxacin [CIPROFLOXACIN] Allergy Mild HIVES,RASH Verified 10/10/21 08:19 levothyroxine sodium Allergy Mild RASH WITH Verified 10/10/21 08:19 [LEVOTHYROXINE SODIUM] GENERIC MED nitrofurantoin Allergy Mild RASH Verified 10/10/21 08:19 [NITROFURANTOIN] Penicillins [PENICILLINS] Allergy Mild RASH Verified 10/10/21 08:19 sulfamethoxazole Allergy Mild rash Verified 10/10/21 08:19 [From BACTRIM] trimethoprim [From BACTRIM] Allergy Mild rash Verified 10/10/21 08:19 ALL GENERIC MEDS Allergy Mild Rash Uncoded 10/10/21 08:19 SHRIMP Allergy Unknown Unknown Uncoded 10/10/21 08:19 Plan I have reviewed the history and physical and performed a pertinent physical examination on my patient. No changes have occurred unless specified.
--- NOTE | 2021-10-10 11:06 | PM.OP ---
Brief Operative Note Date of Service: 10/10/21 Pre-op diagnosis: right rtc tear Post-op diagnosis: other (1) right rtc tear 2) right adhesive capsulitis) Procedure: 1) rtc repair 2) anterior interval release and synovectomy Implants: [employer]anner and nephew 1helacoil double loaded and 1 knotless lateral helacoil Surgeon: Forrest Alvarez MD Anesthesia: GETA and regional Was an Health Information Clerk used for this Procedure?: Yes Health Information Clerk: Mana Hoffman Estimated blood loss (mL): 25 IV fluids (mL): 1,000 Pathology: none sent Condition: stable Disposition: PACU
--- NOTE | 2021-10-10 11:14 | W.PM.OPN ---
Operative Note Operative Note Date of Service: 10/10/21 Narrative: Pre-op diagnosis: right rtc tear Post-op diagnosis: other (1) right rtc tear 2) right adhesive capsulitis) Procedure: 1) rtc repair 2) anterior interval release and synovectomy Implants: Tanner and nephew 1helacoil double loaded and 1 knotless lateral helacoil Surgeon: Forrest Alvarez MD Anesthesia: GETA and regional Was an Repeat Photocomposing Machine Operator used for this Procedure?: Yes Repeat Photocomposing Machine Operator: Mana Hoffman Estimated blood loss (mL): 25 IV fluids (mL): 1,000 Pathology: none sent Condition: stable Disposition: PACU Procedure in detail: Patient was brought to the operating room and placed the the beach chair position. All bony prominences were well padded and the limb was prepped and draped in standard sterile fashion. A time out was called to identify proper site, proper procedure and proper surgeon. IV antibiotics per weight were administered. I began by making a posterolateral stab incision with a 15 blade. A blunt trochar was placed into the glenohumeral joint and I insufflated the joint with saline and a 30 degree arthroscope was placed. I established an outside- in anterior portal just distal to the biceps tendon. I then began my inspection of the glenohumeral joint. She was very tight at the anterior interval and required a release of tissue and inflamed synovium to open this space. There was a frayed anterior labrum and a G4 cartilage injury to the anterior superior aspect of the glenoid. The biceps and subscapularis were intact as was the remainder of the labrum. There were no cartilage changes. I debrided the anterior labrum and perfromed a synovectomy aroung the undersurface of the medial cuff and the labrum and biceps. The gutter was clean. There was no obvious undersurface tear of the cuff. I then removed the trochar and entered the subacromial space. A direct lateral portal was then established and I performed a bursectomy. The cuff was then examined. There was a small, crescentic but full thickness tear of the subscapulris. This menured about 6 mm from A-P. I debrided the edges down and used a bur to stimulate bleedingi nthe footprint. I then placed a medial row anchor and brought these sutures out through the cuff. I then tied these to a lateral anchor and recreated the normal footprint of the cuff. Once I was satisfied with the repair final images were captured and I removed all instrumentation. Portals were closed with nylon. Patient was placed in an abduction sling, extubated and brought to the recovery room in stable condition. There were no known complications.
== END 2021-10-10 13:16 | disposition home or self-care (01) ==
PROVIDERS: PCP Internal Medicine; Visit Provider Orthopaedic Surgery
PROC: (CPT 29827; principal; 2021-10-10 10:00)
DX: M75.121 Complete rotator cuff tear or rupture of right shoulder, not specified as traumatic (principal); M75.01 Adhesive capsulitis of right shoulder; I10 Essential (primary) hypertension; E78.5 Hyperlipidemia, unspecified; K21.9 Gastro-esophageal reflux disease without esophagitis; E11.9 Type 2 diabetes mellitus without complications; Z79.4 Long term (current) use of insulin; Z79.899 Other long term (current) drug therapy; Z88.0 Allergy status to penicillin; Z88.2 Allergy status to sulfonamides; Z88.8 Allergy status to other drugs, medicaments and biological substances
CPT/HCPCS: 29827; 29826; 82947; 93005; C1713; J0171; J2250; J2405; J2550; J3010

== ENCOUNTER → 2021-10-15 10:48 | Outpatient (BNVA) | payer MEDICARE, SELFPAY | PROVIDERS: PCP Internal Medicine; Visit Provider Physician Assistant | DX: Z47.89 Encounter for other orthopedic aftercare (principal); Z98.890 Other specified postprocedural states | CPT/HCPCS: 99212 ==

== ENCOUNTER 2021-11-15 08:10 | Outpatient (REF) | payer OTHER, SELFPAY ==
[2021-11-15 09:09] LABS: Alanine Aminotransferase 21 U/L (0-31); Alkaline Phosphatase 68 U/L (39-117); Anion Gap 13 (12-20); Aspartate Amino Transferase 24 U/L (5-31); Bilirubin Total 0.3 mg/dL (0.0-1.0); Blood Urea Nitrogen 19 mg/dL (9-16); Carbon Dioxide 27 mmol/L (22-29); Chloride 103 mmol/L (96-108); Cholesterol 168 mg/dL; Estimated Glomerular Filt Rate > 60; Glucose Fasting 110 mg/dL (60-99); HDL Cholesterol 45 mg/dL; LDL Cholesterol Calculated 109 mg/dl; Potassium 3.8 mmol/L (3.3-5.1); Sodium 139 mmol/L (135-145); Total Protein 7.2 g/dL (6.5-8.0); Triglycerides 74 mg/dL
[2021-11-15 09:33] LABS: Thyroid Stimulating Hormone 1.35 uIU/mL (0.32-4.0); Vitamin D 25-OH Total 42.8 ng/mL (>30)
[2021-11-15 10:40] LABS: Creatinine Urine 119.78 mg/dL
== END 2021-11-15 08:11 | disposition home or self-care (01) ==
LOC: HO.LAB 08:10
PROVIDERS: PCP Internal Medicine; Visit Provider Internal Medicine
DX: M25.511 Pain in right shoulder (principal); E55.9 Vitamin D deficiency, unspecified; E03.9 Hypothyroidism, unspecified; E11.9 Type 2 diabetes mellitus without complications; E78.5 Hyperlipidemia, unspecified; I10 Essential (primary) hypertension; Z47.89 Encounter for other orthopedic aftercare
CPT/HCPCS: 36415; 80053; 80061; 82043; 82306; 84443; 99212

== ENCOUNTER → 2021-11-30 12:38 | Outpatient (BNVA) | payer MEDICARE, SELFPAY | PROVIDERS: PCP Internal Medicine; Referring Provider Internal Medicine; Visit Provider Nurse Practitioner | DX: K21.9 Gastro-esophageal reflux disease without esophagitis (principal); R79.89 Other specified abnormal findings of blood chemistry; R10.11 Right upper quadrant pain | CPT/HCPCS: 99212 ==

== ENCOUNTER 2021-12-04 09:30 | Emergency (ER) | payer MEDICARE, SELFPAY ==
--- NOTE | ~2021-12-04 | XR_ITS ---
EXAMINATION: XR FOOT, LEFT CLINICAL INFORMATION: Left toe pain and bruising COMPARISON: None TECHNIQUE: AP, lateral, and oblique views of the left foot. FINDINGS: The bones and soft tissues are normal. No fracture. Alignment is anatomic. Joint spaces are maintained. XR/XR foot LT min 3V IMPRESSION: Normal left foot.
[2021-12-04 10:08] VITALS: BP 185/76; PULSE 66; RESP 18; TEMP 36.1; O2SAT 97; BMI 38.9
--- NOTE | 2021-12-04 11:37 | ED.LOWEXIN ---
HPI - Extremity Injury (Lower) General Chief Complaint: Extremity Injury, Lower Stated Complaint: Toe pain Time Seen by Provider: 12/04/21 10:54 Source: patient Mode of arrival: ambulatory Limitations: no limitations History of Present Illness HPI Narrative: 65-year-old female presenting to the ED with complaints of left foot 5th toe pain/ bruising after she jammed against the bathtub yesterday. She denies any other injuries complaints or concerns at this time. MD complaint: foot injury Onset (ago): day(s) ( yesterday) Type of Injury: blunt Place: home Severity: mild Relieving factors: nothing Exacerbating factors: weight bearing, movement and palpation Context: direct blow Associated symptoms: swelling ( And bruising) and ambulatory Other symptoms: none Related Data Home Medications Medication Instructions Recorded Confirmed cetirizine 10 mg tablet 10 mg PO DAILY 06/26/20 11/13/21 escitalopram oxalate 10 mg tablet 10 mg PO DAILY 06/26/20 11/13/21 fluticasone propionate 50 1 spray INTRANASAL DAILY 06/26/20 11/13/21 mcg/actuation nasal spray,suspension doxepin 10 mg capsule 10 mg PO BEDTIME cap 07/25/20 11/13/21 gabapentin 300 mg capsule 300 mg PO BID cap 12/15/20 11/13/21 hydroxyzine HCl 25 mg tablet 25 mg PO Q8H PRN tab 12/15/20 11/13/21 mirabegron 25 mg tablet,extended 25 mg PO DAILY 12/15/20 11/13/21 release 24 hr Previous Rx's Medication Instructions Recorded carbamide peroxide 6.5 % ear drops 5 drp OTIC (EARS) Q12H 4 Days #15 07/14/20 (Debrox) ml triamcinolone acetonide 0.1 % 1 appl TOPICAL BID 10 Days #15 g 08/21/20 topical cream hydrocortisone 1 % topical cream 1 appl TOPICAL BID PRN 14 Days 09/01/20 (Anti-Itch (hydrocortisone)) #28.35 g alcohol swabs (Alcohol Pads) 1 pad TOPICAL .COMPLEX #200 pad 12/15/20 insulin glargine 100 unit/mL (3 12 unit (0.12 mL) SUBCUT DAILY 30 12/15/20 mL) subcutaneous pen (Lantus Days #15 ml Solostar U-100 Insulin) alprazolam 1 mg tablet (Xanax) 1 - 2 mg PO ONCE #2 tab 03/20/21 diclofenac sodium 1 % topical gel 2 g TOPICAL QID 30 Days #100 g 03/26/21 toilet seat elevator #1 ea 04/10/21 clobetasol 0.05 % topical ointment 1 appl TOPICAL DAILY #45 g 05/01/21 Synthroid 150 mcg tablet 150 mcg PO DAILY 90 Days #90 tab NS 06/05/21 (levothyroxine) dulaglutide 0.75 mg/0.5 mL 0.75 mg (0.5 mL) SUBCUT QWEEK 30 06/05/21 subcutaneous pen injector Days #2 ml (Trulicity) hydrochlorothiazide 25 mg tablet 25 mg PO DAILY 90 Days #90 tab 06/05/21 omeprazole 20 mg capsule,delayed 20 mg PO QAM #30 cap 06/05/21 release atorvastatin 20 mg tablet 20 mg PO DAILY 90 Days #90 tab 07/12/21 lidocaine 5 % topical ointment 1 appl TOPICAL BEDTIME PRN 30 Days 07/12/21 #30 g blood sugar diagnostic (FreeStyle 1 strip MISCELLANEOUS TID 90 Days 08/15/21 Lite Strips) #300 strip docusate sodium 100 mg capsule 100 mg PO DAILY #30 cap 08/27/21 (Colace) cyclobenzaprine 10 mg tablet 10 mg PO TID PRN #10 tab 09/09/21 lidocaine 5 % topical patch 1 patch TOPICAL DAILY #15 ea 09/09/21 (Lidoderm) lancets 28 gauge (FreeStyle #300 ea 10/16/21 Lancets) white petrolatum 41 % topical 1 appl TOPICAL DAILY PRN 14 Days 10/31/21 ointment (Aquaphor Healing) #20 g pen needle, diabetic 32 gauge x 1 ea SUBCUT DAILY #30 ea 11/02/21 5/32 (BD Ultra-Fine Aarti Pen Needle) cyclobenzaprine 10 mg tablet 10 mg PO BEDTIME #30 tab 11/07/21 lidocaine 5 % topical patch 1 patch TOPICAL DAILY PRN 15 Days 11/13/21 #15 ea pillow #1 ea 11/13/21 oxycodone-acetaminophen 5 mg-325 1 tab PO Q8H PRN 7 Days #21 tab 11/15/21 mg tablet dicyclomine 20 mg tablet 20 mg PO TID 30 Days #90 tab 11/27/21 metformin 500 mg tablet 1,000 mg PO BID #120 tab 11/28/21 tramadol 50 mg tablet 50 mg PO BID PRN #10 tab 11/30/21 naproxen 500 mg tablet 500 mg PO BID PRN #10 tab 12/04/21 Allergies Allergy/AdvReac Type Severity Reaction Status Date / Time enalapril [ENALAPRIL] Allergy Intermediate Cough Verified 11/30/21 13:02 cephalexin [From KEFLEX] Allergy Mild rash Verified 11/30/21 13:02 ciprofloxacin [CIPROFLOXACIN] Allergy Mild HIVES,RASH Verified 11/30/21 13:02 levothyroxine sodium Allergy Mild RASH WITH Verified 11/30/21 13:02 [LEVOTHYROXINE SODIUM] GENERIC MED nitrofurantoin Allergy Mild RASH Verified 11/30/21 13:02 [NITROFURANTOIN] Penicillins [PENICILLINS] Allergy Mild RASH Verified 11/30/21 13:02 sulfamethoxazole Allergy Mild rash Verified 11/30/21 13:02 [From BACTRIM] trimethoprim [From BACTRIM] Allergy Mild rash Verified 11/30/21 13:02 ALL GENERIC MEDS Allergy Mild Rash Uncoded 11/30/21 13:02 SHRIMP Allergy Unknown Unknown Uncoded 11/30/21 13:02 Review of Systems Review of Systems: Constitutional : No Weight loss, No Fever, No Chills, No Night Sweats, No Fatigue, No Malaise ENT/Mouth : No Hearing loss, No Ear Pain, No Nasal Congestion, No Sinus Pain, No Hoarseness, No sore throat, No Rhinorrhea, No Swallowing Difficulty Eyes: No Eye Pain, No Swelling, No Redness, No Foreign Body, No Discharge, No Vision Changes Cardiovascular : No Chest Pain, No SOB, No Dyspnea on Exertion, No Orthopnea, No Edema, No Palpitations Respiratory : No Cough, No Sputum, No Wheezing, No Smoke Exposure, No Dyspnea Gastrointestinal : No Nausea, No Vomiting, No Diarrhea, No Constipation, No abdominal Pain, No Hematochezia, No Melena Genitourinary : no irregular bleeding, No Dysuria, No Urinary Frequency, No Hematuria, No Urinary Incontinence, No Urgency, No Flank Pain, No Urinary Flow Changes, No Hesitancy Musculoskeletal : + left 5th toe joint pain /bruising, No Myalgias, No Joint Swelling Skin : No Skin Lesions, No rash Neuro : No Weakness, No Numbness, No Paresthesias, No Loss of Consciousness, No Dizziness, No Headache Psych : No Anxiety/Panic, No Depression, No SI/HI/AH/VH, No Social Issues, Heme/Lymph: No Bruising, No Bleeding,No Lymphadenopathy Endocrine : No Polyuria, No Polydipsia, No Temperature Intolerance Yes all other systems are reviewed and are negative [facility] Past Medical History Attestation statement: The following information was validated with the patient. 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 Mother Diabetes Sister Lung cancer Brother H/O heart surgery Diabetes Son Epilepsy Social History Social History Household Members: Significant Other Housing: Apartment Alcohol intake: never Patient Tobacco Use Status: Never used Tobacco e-Cigarette/Vaping Use: Never Used Second Hand Smoke Exposure: No Advance Directives: No Advance Directives Information Provided: No service: No Current occupational status: disabled Gender identity: Female Cognitive needs: No Hearing needs: No Vision needs: No Physical Exam Vital Signs: Vital Signs: Last Vital Signs Temp 97.0 F 12/04/21 10:08 Pulse 66 12/04/21 10:08 Resp 18 12/04/21 10:08 BP 185/76 H 12/04/21 10:08 Pulse Ox 97 12/04/21 10:08 BMI result Body Mass Index 38.9 vital signs have been reviewed as normal and appeared to be correct. Blood pressure normal Heart rate normal. Respiration rate normal. Temperature normal. Oxygen saturation normal. Appearance: Alert. Oriented X3. No acute distress. Head: Normal external exam. Normocephalic. Atraumatic. Eyes: PERRLA. EOMI. Conjunctiva and sclera normal. Eyelids normal. ENT: Pharynx normal. Uvula midline. Moist mucous membranes. Neck: Normal inspection. Neck supple. FROM. CVS: Normal heart rate and rhythm. Respiratory: No respiratory distress. Painless inspiration. Skin: Skin warm and dry. Normal skin color. Normal skin turgor. No rashes/lesions/lacerations noted. Extremities: patient with tenderness palpation and soft tissue swelling and ecchymosis noted to the left foot 5th toe. No signs of infection. No obvious ligamentous or tendon injury noted. No obvious deformities noted. She does not have pain to the 5th metatarsal. There is no tenderness palpation to the left ankle. Otherwise all other extremities exhibit normal range of motion nontender. Neuro: Oriented X 3. No motor deficit. No sensory deficit. Reflexes normal. Normal steady gait. No focal neuro deficits noted. Vascular: + radial pulses/+ 2 distal pedal pulses/+2 dorsalis pedis b/l. Normal cap refill. No cyanosis noted to upper extremity nails and lower extremity toes nails. Course Course Course Narrative: x-ray negative for any acute processes. Will DC home with symptomatic treatment instructions return if any new or worsening symptoms follow up with primary care provider. Patient understands agrees with this plan. MDM - Extremity Injury (Lower) Medical Records Attestation: I reviewed the patient's medical records. Imaging Data Left foot x-ray: Attestation: I personally reviewed and interpreted this imaging study as follows: Radiologist's impression: FINDINGS: The bones and soft tissues are normal. No fracture. Alignment is anatomic. Joint spaces are maintained.? XR/XR foot LT min 3V IMPRESSION: Normal left foot. Discharge Plan Discharge Clinical Impression: Sprain of toe, fifth, left, Traumatic ecchymosis of toe Patient Disposition: Home, Self-Care Instructions: Foot Sprain (ED) Prescriptions: New naproxen 500 mg tablet 500 mg PO BID PRN (Reason: pain) Qty: 10 0RF No Action hydrocortisone [Anti-Itch (HC)] 1 % cream 1 appl topical BID PRN (Reason: skin irritation) 14 Days Qty: 28.35 1RF alprazolam [Xanax] 1 mg tablet 1 - 2 mg PO ONCE Qty: 2 0RF diclofenac sodium 1 % gel 2 g topical QID 30 Days Qty: 100 4RF Rx Instructions: apply to single elbow, wrist or hand; for hand includes palm/fingers/back of hand (DME) toilet seat elevator See Rx Instructions .Route .MEDSUPPLY Qty: 1 0RF Rx Instructions: As directed Trulicity 0.75 mg/0.5 mL pen injector 0.75 mg subcut QWEEK 30 Days Qty: 2 6RF hydrochlorothiazide 25 mg tablet 25 mg PO DAILY 90 Days Qty: 90 4RF omeprazole 20 mg capsule,delayed release(DR/EC) 20 mg PO QAM Qty: 30 5RF levothyroxine [Synthroid] 150 mcg tablet 150 mcg PO DAILY 90 Days Qty: 90 0RF atorvastatin 20 mg tablet 20 mg PO DAILY 90 Days Qty: 90 2RF FreeStyle Lite Strips Strip 1 strip miscellaneous TID 90 Days Qty: 300 11RF (DME) lancets [FreeStyle Lancets] 28 gauge misc See Rx Instructions .ROUTE .MEDSUPPLY Qty: 300 6RF Rx Instructions: 3 times aday Aquaphor Healing 41 % ointment 1 appl topical DAILY PRN (Reason: dry skin) 14 Days Qty: 20 0RF pen needle, diabetic [BD Ultra-Fine Aarti Pen Needle] 32 gauge x 5/32 needle 1 ea subcut DAILY Qty: 30 11RF cyclobenzaprine 10 mg tablet 10 mg PO BEDTIME Qty: 30 0RF dicyclomine 20 mg tablet 20 mg PO TID 30 Days Qty: 90 1RF metformin 500 mg tablet 1,000 mg PO BID Qty: 120 5RF tramadol 50 mg tablet 50 mg PO BID PRN (Reason: pain) Qty: 10 0RF cyclobenzaprine 10 mg tablet 10 mg PO TID PRN (Reason: muscle spasm) Qty: 10 0RF lidocaine [Lidoderm] 5 % adhesive patch,medicated 1 patch topical DAILY Qty: 15 0RF Rx Instructions: leave on most painful area for up to 12 hrs carbamide peroxide [Debrox] 6.5 % drops 5 drp otic (ears) Q12H 4 Days Qty: 15 0RF triamcinolone acetonide 0.1 % cream 1 appl topical BID 10 Days Qty: 15 0RF lidocaine 5 % ointment 1 appl topical BEDTIME PRN (Reason: pain) 30 Days Qty: 30 1RF lidocaine 5 % adhesive patch,medicated 1 patch topical DAILY PRN (Reason: pain (scale score 7-10)) 15 Days Qty: 15 0RF Rx Instructions: leave on most painful area for up to 12 hrs (DME) pillow See Rx Instructions .Route .MEDSUPPLY Qty: 1 0RF Rx Instructions: As directed escitalopram oxalate 10 mg tablet 10 mg PO DAILY 0RF cetirizine 10 mg tablet 10 mg PO DAILY 0RF fluticasone propionate 50 mcg/actuation spray,suspension 1 spray intranasal DAILY 0RF doxepin 10 mg capsule 10 mg PO BEDTIME 0RF gabapentin 300 mg capsule 300 mg PO BID 0RF hydroxyzine HCl 25 mg tablet 25 mg PO Q8H PRN (Reason: anxiety) 0RF mirabegron 25 mg tablet extended release 24 hr 25 mg PO DAILY 0RF alcohol swabs [Alcohol Pads] Pads, Medicated 1 pad topical .COMPLEX Qty: 200 6RF Rx Instructions: 1 pad topical five times a day; Lantus Solostar U-100 Insulin 100 unit/mL (3 mL) insulin pen 12 unit subcut DAILY 30 Days Qty: 15 3RF clobetasol 0.05 % ointment 1 appl topical DAILY Qty: 45 2RF Rx Instructions: Use daily for 2 weeks, then every other day for 2 wks, then twice a week docusate sodium [Colace] 100 mg capsule 100 mg PO DAILY Qty: 30 6RF oxycodone-acetaminophen 5-325 mg tablet 1 tab PO Q8H PRN (Reason: pain) 7 Days Qty: 21 0RF Referrals: Yael Alex MD [Primary Care Provider] - 2 days Print Language: Tristanian
== END 2021-12-04 12:25 | disposition home or self-care (01) ==
PROVIDERS: Emergency Provider Emergency Medicine; PCP Internal Medicine
DX: S93.505A Unspecified sprain of left lesser toe(s), initial encounter (principal); S90.122A Contusion of left lesser toe(s) without damage to nail, initial encounter; Y29.XXXA Contact with blunt object, undetermined intent, initial encounter; Y93.9 Activity, unspecified; Y92.9 Unspecified place or not applicable; Y99.9 Unspecified external cause status
CPT/HCPCS: 73630; 99281; 99283

== ENCOUNTER → 2021-12-13 10:10 | Outpatient (BNVA) | payer MEDICARE, SELFPAY | PROVIDERS: PCP Internal Medicine; Visit Provider Physician Assistant | DX: Z47.89 Encounter for other orthopedic aftercare (principal); Z98.890 Other specified postprocedural states | CPT/HCPCS: 99212 ==

== ENCOUNTER 2022-01-01 13:00 | Outpatient (RCR) | payer MEDICARE, SELFPAY ==
--- NOTE | 2021-10-15 16:40 | MHC.PT.EP ---
[facility] [place] [facility] [place] Office [place] Office [address] Killian Koch [address] [phone] F: [phone] F: [phone] F: [phone] F: [phone] Physical Therapy Plan of Care Date of Evaluation: Date of Surgery: 10/10/21 Diagnosis: S/P RIGHT ROTATOR CUFF REPAIR Assessment: LION IS A PLEASANT 65 YO FEMALE WHO PRESENTS S/P RIGHT ROTATOR CUFF REPAIR. UPON EXAM SHE DEMONSTRATES THE EXPECTED IMPAIRMENTS OF DECREASED ROM AND STRENGTH, INCREASED PAIN AND EDEMA. SHE DEMONSTRATES POOR POSTURAL AWARENESS AND INCREASED UPPER TRAP COMPENSATION. SHE IS VERY FEARFUL TO RELAX ARM AND EXTEND ELBOW TO PERFORM HANGS OR PENDULUMS. FUNCTIONAL LIMITATIONS INCLUDE DECREASED ABILITY TO PERFORM CARRYING, LIFTING, REACHING, PUSHING AND PULLING. SHE REPORTS DIFFICULTY WITH HOMEMAKING AND SELF CARE TASKS, DECREASED PARTICIPATION IN COMMUNITY AND RECREATIONAL ACTIVITIES AND DISRUPTED SLEEP. PT IS A GOOD CANDIDATE FOR SKILLED PT DUE TO AGE, POTENTIAL REMEDIATION OF IMPAIRMENTS, TYPICAL DISEASE/CONDITION PROGRESSION AND PROGNOSIS, COMORBIDITIES, AND MOTIVATION. PT WOULD BENEFIT FROM TAILORED PROGRAM OF THERAPEUTIC ACTIVITIES, FUNCTIONAL TRAINING, GAIT TRAINING, POSTURAL EDUCATION, NEUROMUSCULAR RE-EDUCATION, AND MODALITIES NEEDED. Frequency and Duration: The patient will be seen 2 X WEEK FOR 8 WEEKS THEN REASSESS Short Term Goals: SHOULDER ELEVATION TO AT LEAST 90 IN 2 WEEKS Senior Care Goals: BY WEEK 8 MINIMUM OF 135 DEGREES OF SHOULDER ELEVATION INCREASE OF SHOULDER STRENGTH TO MINIMUM OF 4/5 T/O SHOULDER TO PERFORM HOMEMAKING AND SELF CARE TASKS WITHOUT RESTRICTION SPADI SCORE OF LESS THAN 35% DISABILITY Treatment Plan: Modalities to reduce pain, spasms and effusion. Manual therapy to restore motion and function. Therapeutic exercise to improve strength and flexibility. Neuromuscular re-education for posture and balance. Therapeutic activities to return to functional activities of daily living. Electronically signed by: PAGE PANDYA PT, DPT Please sign and return to therapist. Thank you for your referral.
--- NOTE | 2022-02-27 15:00 | MHC.PT.DC ---
[facility] [place] [facility] [place] [facility] [place] [facility] [address] Killian Koch [address] [phone] F: [phone] F: [phone] F: [phone] F: [phone] Physical Therapy Discharge Report Diagnosis: S/P RIGHT ROTATOR CUFF REPAIR Date of Surgery: 10/10/21 Date of Evaluation: 10/15/21 Date of Discharge: 01/08/22 Treatments to Date: 14 Cancellations to Date: 0 No Shows to Date: Discharge Status: Independent with HEP Patient Elected to Stop Discharge Summary: Alysia is independent with her home program but requires encouragement to perform regularly. She would benefit from continuing program and working with suggestions from PT to improve posture. Electronically signed by: Monika Montoya PT, DPT Please sign and return to therapist. Thank you for your referral.
== END 2022-02-27 15:02 ==
LOC: HO.PT 13:00
PROVIDERS: Visit Provider Physician Assistant
DX: Z98.890 Other specified postprocedural states (principal)
CPT/HCPCS: 97110; 97140; 97162; 97530

== ENCOUNTER → 2022-03-07 12:20 | Outpatient (BNVA) | payer MEDICARE, SELFPAY | PROVIDERS: PCP Internal Medicine; Visit Provider Orthopaedic Surgery | DX: Z98.890 Other specified postprocedural states (principal) | CPT/HCPCS: 99212 ==

== ENCOUNTER → 2022-04-02 10:44 | Outpatient (BNVA) | payer MEDICARE, SELFPAY | PROVIDERS: PCP Internal Medicine; Referring Provider Internal Medicine; Visit Provider Nurse Practitioner | DX: R79.89 Other specified abnormal findings of blood chemistry (principal) | CPT/HCPCS: 99212 ==

== ENCOUNTER 2022-04-10 10:33 | Outpatient (REF) | payer MEDICARE, SELFPAY ==
[2022-04-10 12:45] LABS: Folate 9.3 ng/mL (> or = 4.0); Vitamin B12 723 pg/mL (200-900)
== END 2022-04-10 10:34 | disposition home or self-care (01) ==
LOC: HO.LAB 10:33
PROVIDERS: PCP Internal Medicine; Visit Provider Psychiatry & Neurology Neurology
DX: F03.90 Unspecified dementia, unspecified severity, without behavioral disturbance, psychotic disturbance, mood disturbance, and anxiety (principal); R25.1 Tremor, unspecified
CPT/HCPCS: 36415; 82607; 82746

== ENCOUNTER 2022-04-24 09:11 | Outpatient (REF) | payer OTHER, SELFPAY ==
[2022-04-24 10:16] LABS: Alanine Aminotransferase 48 U/L (0-31); Alkaline Phosphatase 201 U/L (39-117); Anion Gap 15 (12-20); Aspartate Amino Transferase 60 U/L (5-31); Bilirubin Total 0.8 mg/dL (0.0-1.0); Blood Urea Nitrogen 16 mg/dL (9-16); Calcium 9.9 mg/dL (8.4-10.2); Carbon Dioxide 31 mmol/L (22-29); Chloride 98 mmol/L (96-108); Cholesterol 132 mg/dL; Estimated Glomerular Filt Rate > 60; Glucose Fasting 127 mg/dL (60-99); HDL Cholesterol 43 mg/dL; LDL Cholesterol Calculated 75 mg/dl; Potassium 4.3 mmol/L (3.3-5.1); Sodium 140 mmol/L (135-145); Total Protein 7.7 g/dL (6.5-8.0); Triglycerides 72 mg/dL
[2022-04-24 10:39] LABS: Thyroid Stimulating Hormone 7.32 uIU/mL (0.32-4.0); Vitamin D 25-OH Total 43.6 ng/mL (>30)
[2022-04-24 11:04] LABS: Creatinine Urine 73.55 mg/dL; Microalbum/Creatinine Ratio Ur 8.1 ug/mg cr
== END 2022-04-24 09:12 | disposition home or self-care (01) ==
LOC: HO.LAB 09:11
PROVIDERS: PCP Internal Medicine; Visit Provider Internal Medicine
DX: E03.9 Hypothyroidism, unspecified (principal); E78.5 Hyperlipidemia, unspecified; E55.9 Vitamin D deficiency, unspecified; E11.9 Type 2 diabetes mellitus without complications; Z79.4 Long term (current) use of insulin
CPT/HCPCS: 36415; 80053; 80061; 82043; 82306; 84443

== ENCOUNTER 2022-05-06 20:22 | Emergency (ER) | payer OTHER, SELFPAY ==
[2022-05-06 20:30] VITALS: BP 172/90; BP 186/79; PULSE 80; RESP 16; O2SAT 96; O2SAT 97; BMI 35.4
--- NOTE | 2022-05-06 20:52 | ED_ITS ---
HPI - Weakness General Chief complaint: Weakness Stated complaint: lethargy Time Seen by Provider: 05/06/22 20:52 Source: patient Mode of arrival: ambulatory History of Present Illness HPI Narrative: Patient is 66 years old with history of hypothyroidism on 175 mcg of levothyroxine 2 weeks ago PCP increased the dose to 200 mcg for TSH of 7.32, patient called her manager corporate responsibility who said not to increase the dose and to continue 175 mcg patient could not get 175 and she did not take any levothyroxine now she comes for increased lethargy and weakness, also complaining constipation in urinary incontinence sleeping a lot Related Data Home Medications Medication Instructions Recorded Confirmed cetirizine 10 mg tablet 10 mg PO DAILY 06/26/20 04/16/22 escitalopram oxalate 10 mg tablet 10 mg PO DAILY 06/26/20 04/16/22 doxepin 10 mg capsule 10 mg PO BEDTIME 07/25/20 04/16/22 gabapentin 300 mg capsule 300 mg PO BID 12/15/20 04/16/22 hydroxyzine HCl 25 mg tablet 25 mg PO Q8H PRN anxiety 12/15/20 04/16/22 mirabegron 25 mg tablet,extended 25 mg PO DAILY 12/15/20 04/16/22 release 24 hr clobetasol 0.05 % topical ointment 1 appl topical DAILY 04/02/22 04/16/22 diphenhydramine HCl 25 mg capsule 25 mg PO BEDTIME PRN 04/02/22 04/16/22 (Banophen) Previous Rx's Medication Instructions Recorded triamcinolone acetonide 0.1 % 1 appl topical BID rash 10 days 08/21/20 topical cream #15 grams hydrocortisone 1 % topical cream 1 appl topical BID PRN skin 09/01/20 (Anti-Itch (hydrocortisone)) irritation 14 days #28.35 grams alprazolam 1 mg tablet (Xanax) 1 - 2 mg PO ONCE To be taken 1 03/20/21 hour before MRI #2 tabs toilet seat elevator #1 ea 04/10/21 dulaglutide 0.75 mg/0.5 mL 0.75 mg (0.5 mL) subcut QWEEK 30 06/05/21 subcutaneous pen injector days #2 mL (Trulicity) hydrochlorothiazide 25 mg tablet 25 mg PO DAILY 90 days #90 tabs 06/05/21 omeprazole 20 mg capsule,delayed 20 mg PO QAM #30 caps 06/05/21 release atorvastatin 20 mg tablet 20 mg PO DAILY 90 days #90 tabs 07/12/21 blood sugar diagnostic (FreeStyle 1 strip miscellaneous TID 90 days 08/15/21 Lite Strips) #300 strips lancets 28 gauge (FreeStyle #300 ea 10/16/21 Lancets) white petrolatum 41 % topical 1 appl topical DAILY PRN dry skin 10/31/21 ointment (Aquaphor Healing) 2 weeks #20 grams pen needle, diabetic 32 gauge x 1 ea subcut DAILY #30 ea 11/02/21 (BD Ultra-Fine Aarti Pen Needle) metformin 500 mg tablet 1,000 mg PO BID #120 tabs 11/28/21 alcohol swabs (Alcohol Pads) 1 pad topical .COMPLEX #200 pad 01/14/22 lidocaine 5 % topical patch 1 patch topical DAILY PRN pain 03/15/22 (scale score 7-10) 15 days #15 ea dicyclomine 20 mg tablet 20 mg PO TID 30 days #90 tabs 03/17/22 docusate sodium 100 mg capsule 100 mg PO DAILY #30 caps 03/18/22 (Colace) diclofenac sodium 1 % topical gel 2 g topical QID 1 month #100 grams 04/16/22 insulin glargine 100 unit/mL (3 15 unit (0.15 mL) subcut DAILY 30 04/16/22 mL) subcutaneous pen (Lant days #4.5 mL Solostar U-100 Insulin) tramadol 50 mg tablet 50 mg PO BID PRN pain #10 tabs 04/16/22 levothyroxine 200 mcg tablet 200 mcg PO DAILY 90 days #90 tabs 04/24/22 cyclobenzaprine 10 mg tablet 10 mg PO TID PRN muscle spasm #10 05/01/22 tabs cefuroxime axetil 250 mg tablet 250 mg PO BID 7 days #14 tabs 05/06/22 levothyroxine 175 mcg capsule 175 mcg PO DAILY #90 caps 05/06/22 Allergies Allergy/AdvReac Type Severity Reaction Status Date / Time enalapril [ENALAPRIL] Allergy Intermediate Cough Verified 04/16/22 08:53 cephalexin [From KEFLEX] Allergy Mild rash Verified 04/16/22 08:53 ciprofloxacin [CIPROFLOXACIN] Allergy Mild HIVES,RASH Verified 04/16/22 08:53 levothyroxine sodium Allergy Mild RASH WITH Verified 04/16/22 08:53 [LEVOTHYROXINE SODIUM] GENERIC MED nitrofurantoin Allergy Mild RASH Verified 04/16/22 08:53 [NITROFURANTOIN] Penicillins [PENICILLINS] Allergy Mild RASH Verified 04/16/22 08:53 sulfamethoxazole Allergy Mild rash Verified 04/16/22 08:53 [From BACTRIM] trimethoprim [From BACTRIM] Allergy Mild rash Verified 04/16/22 08:53 ALL GENERIC MEDS Allergy Mild Rash Uncoded 04/16/22 08:53 SHRIMP Allergy Unknown Unknown Uncoded 04/16/22 08:53 Review of Systems Review of Systems: Yes all other systems are reviewed and are negative [facility] Past Medical History Medical History Acquired hypothyroidism Anxiety Benign essential hypertension Depression Diabetes type 2, uncontrolled Dyslipidemia GERD without esophagitis skilled nursing (current) use of insulin Lower back pain Lumbar spondylosis Mild recurrent major depression Obesity (BMI 30-39.9) Rash Right arm pain Sacroiliac joint disease Thyroid cancer Surgical History H/O thyroidectomy History of bladder surgery History of cholecystectomy History of esophagogastroduodenoscopy (EGD) History of liver biopsy Hx of colonoscopy Family History Family History Father No problems noted. Mother Diabetes Sister Lung cancer Brother H/O heart surgery Diabetes Son Epilepsy Social History Social History Household Members: Significant Other Housing: Apartment Alcohol intake: never Patient Tobacco Use Status: Never used Tobacco e-Cigarette/Vaping Use: Never Used Second Hand Smoke Exposure: No Advance Directives: No service: No Current occupational status: disabled Gender identity: Female Cognitive needs: Yes Hearing needs: No Vision needs: No Physical Exam Vital Signs: Vital Signs: Last Vital Signs Pulse 74 05/06/22 23:15 Resp 16 05/06/22 23:15 BP 148/89 H 05/06/22 23:15 Pulse Ox 98 05/06/22 23:15 O2 Del Method 05/06/22 23:15 BMI result Body Mass Index 35.4 Appearance: Alert. Oriented X3. No acute distress. Eyes: PERRLA, No Nystagmus ENT: Pharynx normal. Oral Mucosa moist Neck: Normal inspection. Neck supple. CVS: Normal heart rate and rhythm. Pulses normal. Respiratory: No respiratory distress. Equal air entry bilateral, no wheezing/rales/rhonchi Abdomen: Soft and nontender. Bowel sounds are present, no mass palpable, no CVA tenderness Skin: Skin warm and dry. Normal skin color. Normal skin turgor. Extremities: No lower extremity edema. No calf tenderness Neuro: Oriented X 3. No motor deficit. No sensory deficit.No cerebellar signs , cranial nerves II-XII intact MDM - Weakness MDM Narrative Medical decision making narrative: Patient hypothyroidism because of not taking medication will discharge patient home on 175 mcg of levothyroxine also patient has UTI will give prescription of Ceftin which she tolerated in the ER Medical Records Attestation: I reviewed the patient's medical records. Lab Data Attestation: I reviewed the patient's lab results. Result diagrams: 05/06/22 21:53 05/06/22 21:53 Labs: Lab Results 05/06/22 05/06/22 05/06/22 Range/Units 21:53 21:53 22:33 WBC 7.0 (4.8-10.8) X10*3/uL RBC 4.63 (4.20-5.50) X10*6/uL Hgb 13.1 (12.0-16.0) g/dl Hct 39.0 (37.0-47.0) % MCV 84.2 (80.0-98.0) fL MCH 28.3 (27.0-33.0) pg MCHC 33.6 (31.0-35.0) g/dl RDW 12.7 (11.0-16.0) % Plt Count 202 (160-400) X10*3/uL MPV 13.0 H (9.4-12.3) fL Immature Gran % (Auto) 0.3 (0.0-0.4) % Neut % (Auto) 56.9 (45-73) % Lymph % (Auto) 28.2 (20-40) % Owen % (Auto) 9.8 (2-11) % Eos % (Auto) 3.9 (0-4) % Baso % (Auto) 0.9 (0-2) % Lymph # (Auto) 2.0 (1.2-4.9) X10*3/uL Owen # (Auto) 0.7 (0.1-1.2) X10*3/uL Eos # (Auto) 0.3 (0.0-0.4) X10*3/uL Baso # (Auto) 0.1 (0.0-0.2) X10*3/uL Abs Immat Gran (auto) 0.02 (0.00-0.03) X10*3/uL Absolute Neuts (auto) 4.0 (2.0-8.3) x10*3/uL Absolute Nucleated RBC 0.000 (0.0-0.012) X10*3/uL Nucleated RBC % (auto) 0.0 (0.0-0.2) /100WBC Sodium 139 (135-145) mmol/L Potassium 4.4 (3.3-5.1) mmol/L Chloride 99 (96-108) mmol/L Carbon Dioxide 30 H (22-29) mmol/L Anion Gap 14 (12-20) BUN 17 H (9-16) mg/dL Creatinine 1.17 (0.5-1.4) mg/dL Estim Creat Clear Calc 49.8 Estimated GFR 46 Random Glucose 231 H (60-115) mg/dL Calcium 9.4 (8.4-10.2) mg/dL Magnesium 1.9 (1.6-2.6) mg/dL Total Bilirubin 0.4 (0.0-1.0) mg/dL AST 61 H (5-31) U/L ALT 41 H (0-31) U/L Alkaline Phosphatase 212 H (39-117) U/L Total Protein 7.8 (6.5-8.0) g/dL Albumin 3.9 (3.5-5.0) g/dL TSH 26.39 H (0.32-4.0) uIU/mL Urine Color Yellow Urine Appearance Clear Urine pH 6.0 (5.0-9.0) Ur Specific [place] 1.010 (1.005-1.025) Urine Protein Negative (Neg-Trace) mg/dL Urine Glucose (UA) Negative (Negative) mg/dL Urine Ketones Negative (Negative) mg/dL Urine Blood Negative (Negative) Urine Nitrite Negative (Negative) Ur Leukocyte Esterase Moderate (2+) H (Negative) Urine RBC 0-2 (0-2) /HPF Urine WBC 21-50 H (0-5) /HPF Ur Squamous Epith Cells 3-5 (0-2) /HPF Urine Bacteria Trace (None Seen) Hyaline Casts 0-2 (0-2) /LPF ECG Data Attestation: I personally reviewed and interpreted this ECG as follows: Interpretation: No sinus rhythm heart rate 68 beats per minute LVH normal interval normal axis impression normal EKG Discharge Plan Discharge Clinical Impression: Hypothyroidism, UTI (urinary tract infection) Patient Disposition: Home, Self-Care Instructions: Urinary Tract Infection in Women (ED), Hypothyroidism (ED) Additional Instructions: Continue taking levothyroxine 175 mcg daily for now Follow-up with your manager corporate responsibility and PCP Drink plenty of fluids and start taking medicine for urinary tract infection Prescriptions: New levothyroxine 175 mcg capsule 175 mcg PO DAILY Qty: 90 0RF cefuroxime axetil 250 mg tablet 250 mg PO BID 7 Days Qty: 14 0RF No Action hydrocortisone [Anti-Itch (HC)] 1 % cream 1 appl topical BID PRN (Reason: skin irritation) 14 Days Qty: 28.35 1RF alprazolam [Xanax] 1 mg tablet 1 - 2 mg PO ONCE Qty: 2 0RF (DME) toilet seat elevator See Rx Instructions .Route .MEDSUPPLY Qty: 1 0RF Rx Instructions: As directed Trulicity 0.75 mg/0.5 mL pen injector 0.75 mg subcut QWEEK 30 Days Qty: 2 6RF hydrochlorothiazide 25 mg tablet 25 mg PO DAILY 90 Days Qty: 90 4RF omeprazole 20 mg capsule,delayed release(DR/EC) 20 mg PO QAM Qty: 30 5RF atorvastatin 20 mg tablet 20 mg PO DAILY 90 Days Qty: 90 2RF FreeStyle Lite Strips Strip 1 strip miscellaneous TID 90 Days Qty: 300 11RF (DME) lancets [FreeStyle Lancets] 28 gauge misc See Rx Instructions .ROUTE .MEDSUPPLY Qty: 300 6RF Rx Instructions: 3 times aday Aquaphor Healing 41 % ointment 1 appl topical DAILY PRN (Reason: dry skin) 14 Days Qty: 20 0RF pen needle, diabetic [BD Ultra-Fine Aarti Pen Needle] 32 gauge x 5/32 needle 1 ea subcut DAILY Qty: 30 11RF metformin 500 mg tablet 1,000 mg PO BID Qty: 120 5RF alcohol swabs [Alcohol Pads] Pads, Medicated 1 pad topical .COMPLEX Qty: 200 6RF Rx Instructions: 1 pad topical five times a day; lidocaine 5 % adhesive patch,medicated 1 patch topical DAILY PRN (Reason: pain (scale score 7-10)) 15 Days Qty: 15 0RF Rx Instructions: leave on most painful area for up to 12 hrs dicyclomine 20 mg tablet 20 mg PO TID 30 Days Qty: 90 1RF docusate sodium [Colace] 100 mg capsule 100 mg PO DAILY Qty: 30 5RF levothyroxine 200 mcg tablet 200 mcg PO DAILY 90 Days Qty: 90 0RF cyclobenzaprine 10 mg tablet 10 mg PO TID PRN (Reason: muscle spasm) Qty: 10 0RF triamcinolone acetonide 0.1 % cream 1 appl topical BID 10 Days Qty: 15 0RF tramadol 50 mg tablet 50 mg PO BID PRN (Reason: pain) Qty: 10 0RF insulin glargine [Lantus Solostar U-100 Insulin] 100 unit/mL (3 mL) insulin pen 15 unit subcut DAILY 30 Days Qty: 4.5 3RF diclofenac sodium 1 % gel 2 g topical QID 30 Days Qty: 100 4RF Rx Instructions: apply to single elbow, wrist or hand; for hand includes palm/fingers/back of hand escitalopram oxalate 10 mg tablet 10 mg PO DAILY cetirizine 10 mg tablet 10 mg PO DAILY doxepin 10 mg capsule 10 mg PO BEDTIME gabapentin 300 mg capsule 300 mg PO BID hydroxyzine HCl 25 mg tablet 25 mg PO Q8H PRN (Reason: anxiety) mirabegron 25 mg tablet extended release 24 hr 25 mg PO DAILY clobetasol 0.05 % ointment 1 appl topical DAILY Rx Instructions: Use daily for 2 weeks, then every other day for 2 wks, then twice a week diphenhydramine HCl [Banophen] 25 mg capsule 25 mg PO BEDTIME PRN Interventions: ED Discharge Assessment Last Done: 05/06/22 23:51 Discharge Date/Time: 05/06/22 23:53
--- OUTSIDE RECORDS SUMMARY | 2022-05-06 21:06 | XMS_ITS | Continuity of Care Document ---
:1955 Author Organization [facility] Address [address] [place] [address]- Care Team Providers Name Role Phone Cole Talbot MD, Bianca Wilson Primary Care Physician [place] [facility] [place] Date(s): 01/31/20 - 03/01/20 [facility] [address] [place] [id number] Allergies, Adverse Reactions, Alerts Substance Reaction Severity Status levothyroxine1 Rash Active Grass Active Shrimp rash Active 1Patient has an allergy to generic levothyronxine. Medications Azelastine Nasal 2 times a day, 0 Refills, Maintenance, 07/02/17 13:25:32 Start Date: 07/02/17 Status: OrderedBanophen 25 mg oral capsule 1 capsule = 25 mg, By Mouth, 3 times a day, 0 Refills, Maintenance, 02/08/19 10:17:53 EDT Start Date: 02/08/19 Status: Orderedbetamethasone topical dipropionate 0.05% ointment 1 application, Topically, 2 times a day, daily for 2 - 3 months and then 2 times per week to affected area, # 45 Gm, 1 Refills, Maintenance, 02/08/19 11:09:38 EDT, Ointment, 1 application Topically 2 times a day,Instr:daily for 2 - 3 months and then... Start Date: 02/08/19 Status: Orderedbetamethasone topical valerate 0.1% cream 1 applicator, Topically, 2 times a day, 0 Refills, Maintenance, 02/08/19 10:18:22 EDT Start Date: 02/08/19 Status: Orderedcalcitonin 200 iu/ml injectable solution Subcutaneous Infusion, Every other day, 0 Refills, Maintenance, 08/06/18 9:23:04 EST Start Date: 08/06/18 Status: Orderedcetirizine 10 mg oral tablet 1 tablet = 10 mg, By Mouth, Daily, # 30 tablet, 0 Refills, Maintenance, 02/08/19 10:18:48 EDT, Tablet Start Date: 02/08/19 Status: OrderedColace sodium 100 mg oral capsule 1 capsule = 100 mg, By Mouth, 2 times a day, PRN for constipation, # 60 capsule, 0 Refills, Maintenance, 04/17/15 17:08:38, Capsule Start Date: 04/17/15 Stop Date: 05/17/15 Status: Orderedenalapril 5 mg oral tablet 1 tablet = 5 mg, By Mouth, Daily, 0 Refills, Maintenance Start Date: 01/15/11 Status: Orderedepinephrine 0.3 mg injectable solution Intramuscular, Once, 0 Refills, Maintenance, 02/08/19 10:19:11 EDT Start Date: 02/08/19 Status: Orderedescitalopram 5 mg oral tablet 2 tablet = 10 mg, By Mouth, Daily, 0 Refills, Maintenance, 08/06/18 9:23:36 EST Start Date: 08/06/18 Status: Orderedfluocinonide 0.05% topical cream 1 applicator, Topically, 3 times a day, 0 Refills, Maintenance, 08/06/18 9:24:18 EST Start Date: 08/06/18 Status: OrderedFreestyle Lite Test Strips Maintenance, 02/08/19 10:19:35 EDT, Compound Start Date: 02/08/19 Status: Orderedhydrochlorothiazide 25 mg oral tablet 25 mg, 1, tablet, By Mouth, Daily, Refills 0, Maintenance, 07/02/17 13:26:58 Start Date: 07/02/17 Status: OrderedhydrOXYzine hydrochloride 25 mg oral tablet 1 tablet = 25 mg, By Mouth, 4 times a day, 0 Refills, Maintenance, 08/06/18 9:24:56 EST Start Date: 08/06/18 Status: OrderedKetotifen Ophthalmic 1 drops, Eyes, Both, Every 8 hours, 0 Refills, Maintenance, 07/02/17 13:27:06 Start Date: 07/02/17 Status: OrderedLantus 100 u/ml subcutaneous solution Subcutaneous Infusion, 0 Refills, Maintenance, 08/06/18 9:25:41 EST Start Date: 08/06/18 Status: Orderedloratadine 10 mg oral capsule 1 capsule = 10 mg, By Mouth, Daily, # 10 capsule, 0 Refills, Maintenance, Capsule Start Date: 11/29/11 Status: OrderedLORazepam 0.5 mg oral tablet 1 tablet = 0.5 mg, By Mouth, 0 Refills, Maintenance, 02/08/19 10:20:15 EDT Start Date: 02/08/19 Status: Orderedlosartan 25 mg oral tablet 25 mg, 1, tablet, By Mouth, Daily, Refills 0, Maintenance, 08/06/18 9:26:47 EST Start Date: 08/06/18 Status: Orderedlosartan 50 mg oral tablet 50 mg, 1, tablet, By Mouth, Daily, # 30 tablet, Refills 0, Maintenance, 02/08/19 10:20:37 EDT Start Date: 02/08/19 Status: Orderedmometasone 50 mcg/inh nasal spray 2 sprays, Daily, 0 Refills, Maintenance, 07/02/17 13:27:57 Start Date: 07/02/17 Status: Orderednaproxen 500 mg oral delayed release tablet 1 tablet = 500 mg, By Mouth, 2 times a day, 0 Refills, Maintenance, 08/06/18 9:27:32 EST Start Date: 08/06/18 Status: Orderednitrofurantoin macrocrystals 100 mg oral capsule 1 capsule = 100 mg, By Mouth, 4 times a day, # 56 capsule, 0 Refills, Maintenance, 08/06/18 9:28:14 EST, Capsule Start Date: 08/06/18 Stop Date: 08/20/18 Status: Orderedoxybutynin 10 mg/24 hr oral tablet, extended release See Instructions, SUKHDEEP MCKEONA TODOS [place] [facility], # 30 tablet, 5 Refills, Maintenance, [id number], 166, cm, 02/08/19 10:15:00 EDT, Height, 107.5, kg, 02/08/19 10:15:00 EDT, Dry Weight Start Date: 08/30/19 Status: OrderedPrilosec OTC = 20 mg, By Mouth, Daily, 0 Refills, Maintenance Start Date: 01/15/11 Status: Orderedsulfamethoxazole-trimethoprim DS 1, tablet, By Mouth, 2 times a day, Maintenance, 08/06/18 9:29:37 EST Start Date: 08/06/18 Status: OrderedSynthroid 0.15 mg oral tablet 1 tablet = 150 mcg, By Mouth, Daily, BRAND NAME ONLY, # 90 tablet, 3 Refills, Maintenance, 02/17/20 11:14:00 EDT, Tablet, [id number], 166, cm, 02/17/20 10:21:00 EDT, Height, 107.5, kg, 02/08/1910:15:00 EDT, Dry Weight Start Date: 02/17/20 Stop Date: 02/11/21 Status: OrderedTrulicity Pen 0.75 mg/0.5 mL subcutaneous solution Subcutaneous Infusion, 0 Refills, Maintenance, 08/06/18 9:28:48 EST Start Date: 08/06/18 Status: Ordered Problem List Condition Effective Dates Status Health Status Informant Cystocele(Confirmed) Active Dyspareunia(Confirmed) Active Papillary carcinoma of Active thyroid(Confirmed) Eri Aldana N/MARY 02/25/18 Active [phone](Confirmed) UI - Urinary incontinence(Confirmed) Active Social History Social History Type Response Smoking Status Never smoker entered on: 04/11/14 Sex
--- OUTSIDE RECORDS SUMMARY | 2022-05-06 21:06 | XMS_ITS | Continuity of Care Document ---
:1955 Author Organization [facility] Address [address] [place] [address]- Care Team Providers Name Role Phone Cole Talbot MD, Bianca Wilson Primary Care Physician Encounter [facility] [place] Date(s): 06/28/20 - 07/28/20 [facility] [address] [place] [id number] Allergies, Adverse Reactions, Alerts Substance Reaction Severity [...] MCKEONA TODOS [place]AL[facility]Z, # 30 tablet, 0 Refills, 03/17/20 8:47:00 EDT, [id number], Please instruct patient to call our office to schedule F/U appt prior to future refills., 166, cm, 02/17/20 10:21:00 EDT, Height, 107... Start Date: 03/17/20 Status: OrderedPrilosec OTC = 20 mg, By Mouth, Daily, 0 Refills, Maintenance Start Date: 01/15/11 Status: Orderedsulfamethoxazole-trimethoprim DS 1, tablet, By Mouth, 2 times a day, Maintenance, 08/06/18 9:29:37 EST Start Date: 08/06/18 Status: OrderedSynthroid 0.15 mg oral tablet 1 tablet = 150 mcg, By Mouth, Daily, BRAND NAME ONLY, # 90 tablet, 3 Refills, Maintenance, 02/17/20 11:14:00 EDT, Tablet, [facility][id number], 166, cm, 02/17/20 10:21:00 EDT, Height, 107.5, kg, 02/08/1910:15:00 EDT, Dry Weight Start Date: 02/17/20 Stop Date: 02/11/21 Status: OrderedTrulicity Pen 0.75 mg/0.5 mL subcutaneous solution Subcutaneous Infusion, 0 Refills, Maintenance, 08/06/18 9:28:48 EST Start Date: 08/06/18 Status: Ordered Problem List Condition Effective Dates Status Health Status Informant Cystocele(Confirmed) Active Dyspareunia(Confirmed) Active Papillary carcinoma of Active thyroid(Confirmed) Eri Aldana N/CP 02/25/18 Active [phone](Confirmed) UI - Urinary incontinence(Confirmed) Active Social History Social History Type Response Smoking Status Never smoker entered on: 04/11/14 Sex
--- OUTSIDE RECORDS SUMMARY | 2022-05-06 21:06 | XMS_ITS | Continuity of Care Document ---
:1955 Author [facility] Address [address] [place] [address], [address] [place] [id number]- Care Team Providers Name Role Phone Bianca Alex MD Primary Care Physician [place] [facility] [id number] Date(s): 08/11/20 - 09/28/20 [facility] [address] [place] [address], [address] [place] [id number]- Attending Physician: Humera Rivera MD Admitting Physician: Humera Rivera MD Referring Physician: Bianca Alex MD Allergies, Adverse Reactions, Alerts Substance Reaction Severity [...] topical dipropionate 0.05% ointment 1 application, Topically, Daily, 1 application Topically Daily at bedtime apply a thin film to external vaginal area, # 15 Gm, 2 Refills, Maintenance, 09/07/20 10:42:00 EST, Ointment, [id number], Partial fill upon patient request if the pre... Start Date: 09/07/20 Status: Orderedbetamethasone topical dipropionate 0.05% ointment 1 [...] Maintenance, 07/02/17 13:27:57 Start Date: 07/02/17 Status: OrderedMyrbetriq 25 mg oral tablet, extended release 1 tablet = 25 mg, By Mouth, Daily, # 30 tablet, 11 Refills, Maintenance, 09/07/20 10:42:00 EST, [facility]pharm[facility] #[id number], Partial fill upon patient request if the prescription is for a schedule II opioid drug., 166, cm, 09/07/20 10:31:00 EST, Height, 101.5,... Start Date: 09/07/20 Status: Orderednaproxen 500 mg oral delayed release tablet 1 tablet = 500 mg, By Mouth, 2 times a day, 0 Refills, Maintenance, 08/06/18 9:27:32 EST Start Date: 08/06/18 Status: Orderednitrofurantoin macrocrystals 100 mg oral capsule 1 capsule = 100 mg, By Mouth, 4 times a day, # 56 capsule, 0 Refills, Maintenance, 08/06/18 9:28:14 EST, Capsule Start Date: 08/06/18 Stop Date: 08/20/18 Status: OrderedPrilosec OTC = 20 mg, By Mouth, Daily, 0 Refills, Maintenance Start Date: 01/15/11 Status: Orderedsulfamethoxazole-trimethoprim DS 1, tablet, By Mouth, 2 times a day, Maintenance, 08/06/18 9:29:37 EST Start Date: 08/06/18 Status: OrderedSynthroid 0.15 mg oral tablet 1 tablet = 150 mcg, By Mouth, Daily, BRAND NAME ONLY, # 90 tablet, 3 Refills, Maintenance, 02/17/20 11:14:00 EDT, Tablet, [facility]/pharm[facility] #[id number], 166, cm, 02/17/20 10:21:00 EDT, Height, 107.5, kg, 02/08/1910:15:00 EDT, Dry Weight Start Date: 02/17/20 Stop Date: 02/11/21 Status: OrderedTrulicity Pen 0.75 mg/0.5 mL subcutaneous solution Subcutaneous Infusion, 0 Refills, Maintenance, 08/06/18 9:28:48 EST Start Date: 08/06/18 Status: Ordered Problem List Condition Effective Dates Status Health Status Informant Cystocele(Confirmed) Active Dyspareunia(Confirmed) Active Papillary carcinoma of Active thyroid(Confirmed) Eri Aldana N/BHCP 02/25/18 Active [phone](Confirmed) UI - Urinary incontinence(Confirmed) Active Social History Social History Type Response Smoking Status Never smoker entered on: 04/11/14 Sex
--- OUTSIDE RECORDS SUMMARY | 2022-05-06 21:06 | XMS_ITS | Continuity of Care Document ---
:1955 Author Organization [facility] Address [address] [place] [address]- Care Team Providers Name Role Phone Cole Talbot MD, Xi Primary Care Physician Encounter [facility] Date(s): 01/17/22 - 02/16/22 [facility] [address] [place] [address]- Attending Physician: Kevyn Garay Admitting Physician: Kevyn Garay Referring Physician: Kevyn Garay Allergies, Adverse Reactions, Alerts Substance Reaction Severity [...] Refills, Maintenance, 09/07/20 10:42:00 EST, [facility]int[facility], [id number], Partial fill upon patient request if the [...] tablet, 11 Refills, Maintenance, 09/07/20 10:42:00 EST, [facility]/pharmacy #[id number], Partial fill upon patient request if the [...] 08/06/18 9:29:37 EST Start Date: 08/06/18 Status: OrderedSuprep Bowel Prep Kit oral liquid See Instructions, bowel preparation, # 1 kit, 0 Refills, Maintenance, 01/17/22 15:47:00 EDT, [facility]/pharmacy #[id number], Partial fill upon patient request if the prescription is for a schedule II opioid drug.,bowel preparation, 166, cm, 01/17/22 15:35:00 EDT... Start Date: 01/17/22 Status: OrderedSynthroid 0.15 mg oral tablet 1 tablet = 150 mcg, By Mouth, Daily, BRAND NAME ONLY Take 1 pill Friday to Friday and 1.5 pills onSundays., # 110 tablet, 3 Refills, Maintenance, 02/20/21 10:29:00 EDT, Tablet, [facility]/pharmacy #[id number], 166, cm, 02/20/21 10:05:00 EDT, Height, 101.5, kg,... Start Date: 02/20/21 Stop Date: 02/15/22 Status: OrderedTrulicity Pen 0.75 mg/0.5 mL subcutaneous solution Subcutaneous Infusion, 0 Refills, Maintenance, 08/06/18 9:28:48 EST Start Date: 08/06/18 Status: Ordered Problem List Condition Effective Dates Status Health Status Informant Cystocele(Confirmed) Active Dyspareunia(Confirmed) Active Obese class II(Confirmed) Active Papillary carcinoma of Active thyroid(Confirmed) Eri Aldana N/CP 02/25/18 Active [phone](Confirmed) UI - Urinary incontinence(Confirmed) Active Social History Social History Type Response Smoking Status Never smoker entered on: 04/11/14 Sex
--- OUTSIDE RECORDS SUMMARY | 2022-05-06 21:06 | XMS_ITS | Continuity of Care Document ---
:1955 Author Organization [facility] Address [address] [place] [address]- Care Team Providers Name Role Phone Cole Talbot MD, Xi Primary Care Physician Encounter [facility] Date(s): 12/05/21 - 04/04/22 [facility] Diabetes [address] [place] [address] Attending Physician: Torri Jackson MD Admitting Physician: Torri Jackson MD Allergies, Adverse Reactions, Alerts Substance Reaction [...] Refills, Maintenance, 09/07/20 10:42:00 EST, [facility]intment, [id number], Partial fill upon patient request if the [...] 08/06/18 9:25:41 EST Start Date: 08/06/18 Status: Orderedlevothyroxine 175 mcg (0.175 mg) oral tablet 1 tablet = 175 mcg, By Mouth, Daily, BRANDED VERSION ONLY, # 30 tablet, 11 Refills, Maintenance, 03/18/22 14:17:00 EDT, [facility]/pharmacy #[id number], Partial fill upon patient request if the prescription is for a schedule II opioid drug., 166, cm, 03/05/22 8:54... Start Date: 03/18/22 Status: Orderedloratadine 10 mg oral capsule 1 [...] tablet, 11 Refills, Maintenance, 09/07/20 10:42:00 EST, [facility]/pharmacy #[id number], Partial fill upon patient request if [...] Start Date: 08/06/18 Stop Date: 08/20/18 Status: OrderedNuLYTELY with Flavor Packs oral powder for reconstitution See Instructions, per GI office, # 4,000 mL, 0 Refills, Maintenance, 03/04/22 15:59:00 EDT, [facility]/pharmacy #[id number], Partial fill upon patient request if the prescription is for a schedule II opioid drug., per GI office, 166, cm, 01/17/22 15:35:00 EDT, Hei... Start Date: 03/04/22 Status: OrderedPrilosec OTC = 20 mg, By Mouth, Daily, 0 Refills, Maintenance Start Date: 01/15/11 Status: Orderedsulfamethoxazole-trimethoprim DS 1, tablet, By Mouth, 2 times a day, Maintenance, 08/06/18 9:29:37 EST Start Date: 08/06/18 Status: OrderedSuprep Bowel Prep Kit oral liquid See Instructions, bowel preparation, # 1 kit, 0 Refills, Maintenance, 01/17/22 15:47:00 EDT, [facility]/pharmacy #[id number], Partial fill upon patient request if the prescription is for a schedule II opioid drug.,bowel preparation, 166, cm, 01/17/22 15:35:00 EDT... Start Date: 01/17/22 Status: OrderedTrulicity Pen 0.75 mg/0.5 mL subcutaneous solution Subcutaneous Infusion, 0 Refills, Maintenance, 08/06/18 9:28:48 EST Start Date: 08/06/18 Status: Ordered Problem List Condition Effective Dates Status Health Status Informant Cystocele(Confirmed) Active Dyspareunia(Confirmed) Active Obese class II(Confirmed) Active Papillary carcinoma of Active thyroid(Confirmed) Eri CONLEYN/LU 02/25/18 Active [phone](Confirmed) UI - Urinary incontinence(Confirmed) Active Social History Social History Type Response Smoking Status Never smoker entered on: 04/11/14 Sex Care Team PersonnelName: Cole Talbot MD , Yael Wilson Address: [address] [place] [address]
--- OUTSIDE RECORDS SUMMARY | 2022-05-06 21:06 | XMS_ITS | Continuity of Care Document ---
:1955 Author Organization [facility] Address [address] [place] [address], [address] [place] [address]- Care Team Providers Name Role Phone Cole Talbot MD, Binaca Wilson Primary Care Physician Encounter [facility] [place] Date(s): 08/11/20 - 09/10/20 [facility] [address] [place] [address], [address] [place] [address]- Allergies, Adverse Reactions, Alerts Substance Reaction Severity [...] Refills, Maintenance, 09/07/20 10:42:00 EST, [facility]intment, [id number], Partial fill upon patient request if the [...] tablet, 11 Refills, Maintenance, 09/07/20 10:42:00 EST, [facility]/pharmacy #[id number], Partial fill upon patient request if the [...] 3 Refills, Maintenance, 02/17/20 11:14:00 EDT, Tablet, [facility]/pharmacy #[id number], 166, cm, 02/17/20 10:21:00 EDT, [...] Active thyroid(Confirmed) Eri Aldana N/MARY 02/25/18 Active [phone](Confirmed) UI - Urinary incontinence(Confirmed) Active Social History Social History Type Response Smoking Status Never smoker entered on: 04/11/14 Sex
--- OUTSIDE RECORDS SUMMARY | 2022-05-06 21:06 | XMS_ITS | Continuity of Care Document ---
:1955 Author Organization [facility] Address [address] [place] [address]- Care Team Providers Name Role Phone Cole Talbot MD, Xi Primary Care Physician Encounter [facility] Date(s): 03/08/22 - 04/07/22 [facility] [address] [place] [address]- Allergies, Adverse Reactions, Alerts Substance Reaction Severity [...] 2 Refills, Maintenance, 09/07/20 10:42:00 EST, Ointment, [facility]/pharmacy #[id number], Partial fill upon patient request if the [...] tablet, 11 Refills, Maintenance, 03/18/22 14:17:00 EDT, [facility]/pharmacy #[id number], Partial fill upon patient request if [...] tablet, 11 Refills, Maintenance, 09/07/20 10:42:00 EST, [facility]/pharmacy #[id number], Partial fill upon patient request if [...] mL, 0 Refills, Maintenance, 03/04/22 15:59:00 EDT, [facility]/pharmacy #[id number], Partial fill upon patient request if [...] kit, 0 Refills, Maintenance, 01/17/22 15:47:00 EDT, [id number], Partial fill upon patient request if [...] Papillary carcinoma of Active thyroid(Confirmed) Eri Aldana BHN/BHMARY 02/25/18 Active [phone](Confirmed) UI - Urinary incontinence(Confirmed) Active Social History Social History Type Response Smoking Status Never smoker entered on: 04/11/14 Sex Care Team PersonnelName: Cole Talbot MD , Yael Wilson Address: [address] [place] [address]
--- OUTSIDE RECORDS SUMMARY | 2022-05-06 21:06 | XMS_ITS | Continuity of Care Document ---
:1955 Author Organization [facility] Address [address] [place] [address]- Care Team Providers Name Role Phone Bianca Alex MD Primary Care Physician Encounter [facility] [place] Date(s): 12/07/18 - 07/07/[address] [address] [facility] Attending Physician: Min Vazquez MD Admitting Physician: Min Vazquez MD Allergies, Adverse Reactions, Alerts Substance Reaction [...] 10 mg/24 hr oral tablet, extended release 1 tablet = 10 mg, By Mouth, Daily, # 30 tablet, 5 Refills, Maintenance, 02/08/19 11:07:35 EDT, ER Tablet Start Date: 02/08/19 Status: OrderedPrilosec OTC = 20 mg, By Mouth, Daily, 0 Refills, Maintenance Start Date: 01/15/11 Status: Orderedsulfamethoxazole-trimethoprim DS 1, tablet, By Mouth, 2 times a day, Maintenance, 08/06/18 9:29:37 EST Start Date: 08/06/18 Status: OrderedSynthroid 0.15 mg oral tablet 1 tablet = 150 mcg, By Mouth, Daily, BRAND NAME ONLY, # 30 tablet, 11 Refills, Maintenance, 195:33:31 EDT, Tablet Start Date: 01/25/19 Status: OrderedTrulicity Pen 0.75 mg/0.5 mL subcutaneous solution Subcutaneous Infusion, 0 Refills, Maintenance, 08/06/18 9:28:48 EST Start Date: 08/06/18 Status: Ordered Problem List Condition Effective Dates Status Health Status Informant Cystocele(Confirmed) Active Dyspareunia(Confirmed) Active Papillary carcinoma of Active thyroid(Confirmed) Eri Aldana Donte/CP 02/25/18 Active [phone](Confirmed) UI - Urinary incontinence(Confirmed) Active Social History Social History Type Response Smoking Status Never smoker entered on: 04/11/14 Sex
--- OUTSIDE RECORDS SUMMARY | 2022-05-06 21:06 | XMS_ITS | Continuity of Care Document ---
:1955 Author Organization [facility] Address [address] [place] [address]- Care Team Providers Name Role Phone Cole Talbot MD, Yael Wilson Primary Care Physician Encounter [facility] [place] Date(s): 02/26/22 - 03/28/22 [facility] Endocrinology and Diabetes [address] [place] [address] Allergies, Adverse Reactions, Alerts Substance Reaction Severity [...] Refills, Maintenance, 09/07/20 10:42:00 EST, [facility]intment, [id number], Partial fill upon patient request if the [...] tablet, 11 Refills, Maintenance, 03/18/22 14:17:00 EDT, [facility]/pharmacy #[id number], Partial [...] 09/07/20 10:42:00 EST, [facility]/pharmacy #[id number], Partial fill [...] mL, 0 Refills, Maintenance, 03/04/22 15:59:00 EDT, [id number], Partial fill upon patient [...] Active thyroid(Confirmed) Eri Aldana BHN/BHMARY 02/25/18 Active [phone](Confirmed) UI - Urinary incontinence(Confirmed) Active Social History Social History Type Response Smoking Status Never smoker entered on: 04/11/14 Sex Care Team PersonnelName: Cole Talbot MD , Yael Wilson Address: [address] [place] [address]
--- OUTSIDE RECORDS SUMMARY | 2022-05-06 21:06 | XMS_ITS | Continuity of Care Document ---
:1955 Author Organization [facility] Address [address] [place] [address]- Care Team Providers Name Role Phone Not on Staff, PCP Primary Care Physician Unavailable Encounter [facility] Date(s): 12/27/19 - 01/26/20 [facility] [address] [place] [address]- [facility] Attending Physician: Kevyn Garay Admitting Physician: AdmtrKevyn Referring Physician: Admtr, Ar8 Allergies, Adverse Reactions, Alerts Substance Reaction Severity [...] 0 Refills, Maintenance, 07/02/17 13:27:06 Start Date: 12/6/17 Status: OrderedLantus 100 u/ml subcutaneous solution Subcutaneous [...] oral tablet, extended release See Instructions, SUKHDEEP ANDREWS TODOS LOS GALVEZ, # 30 tablet, 5 Refills, Maintenance, [facility] 39826, 166, cm, 02/08/19 10:15:00 EDT, Height, 107.5, [...] Papillary carcinoma of Active thyroid(Confirmed) Eri Aldana Donte/[facility] 02/25/18 Active [phone](Confirmed) UI - Urinary incontinence(Confirmed) Active Social History Social History Type Response Smoking Status Never smoker entered on: 04/11/14 Sex
--- OUTSIDE RECORDS SUMMARY | 2022-05-06 21:06 | XMS_ITS | Continuity of Care Document ---
:1955 Author Organization [facility] Address [address] [place] [address]- Care Team Providers Name Role Phone Cole Talbot MD, Bianca Wilson Primary Care Physician Encounter [facility] Date(s): 02/09/20 - 03/10/20 [facility] [address] [place] [address]- [facility] Allergies, Adverse Reactions, Alerts Substance [...] GALVEZ, # 30 tablet, 5 Refills, Maintenance, [facility] 44957, 166, cm, 02/08/19 10:15:00 EDT, Height, 107.5, [...] Active thyroid(Confirmed) Eri Aldana N/MARY 02/25/18 Active [phone](Confirmed) UI - Urinary incontinence(Confirmed) Active Social History Social History Type Response Smoking Status Never smoker entered on: 04/11/14 Sex
--- OUTSIDE RECORDS SUMMARY | 2022-05-06 21:06 | XMS_ITS | Continuity of Care Document ---
:1955 Author Organization [facility]ocr[facility]ology and D [facility]íst[facility] Address [address] [place] [address]- Care Team Providers Name Role Phone Cole Talbot MD, Yael Wilson Primary Care Physician Encounter [facility] Date(s): 02/20/21 - 03/22/21 [facility] Endocrinology and Diabetes [address] [place] [address] Attending Physician: AdmKevyn alcantar Admitting Physician: Admtr, Kevyn Referring Physician: Admtr, Ar8 Allergies, Adverse Reactions, [...] Refills, Maintenance, 09/07/20 10:42:00 EST, [facility]int[facility], [id number], Partial fill upon patient request if the [...] tablet, 11 Refills, Maintenance, 09/07/20 10:42:00 EST, [facility]/pharmacy #[id number], Partial fill upon patient request if the [...] 3 Refills, Maintenance, 02/20/21 10:29:00 EDT, Tablet, [facility]/pharmacy #[id number], 166, cm, 02/20/21 10:05:00 EDT, Height, 101.5, kg,... Start Date: 02/20/21 Stop Date: 02/15/22 Status: OrderedTrulicity Pen 0.75 mg/0.5 mL subcutaneous solution Subcutaneous Infusion, 0 Refills, Maintenance, 08/06/18 9:28:48 EST Start Date: 08/06/18 Status: Ordered Problem List Condition Effective Dates Status Health Status Informant Cystocele(Confirmed) Active Dyspareunia(Confirmed) Active Papillary carcinoma of Active thyroid(Confirmed) Eri Aldana N/CP 02/25/18 Active [phone](Confirmed) UI - Urinary incontinence(Confirmed) Active Social History Social History Type Response Smoking Status Never smoker entered on: 04/11/14 Sex
--- OUTSIDE RECORDS SUMMARY | 2022-05-06 21:06 | XMS_ITS | Continuity of Care Document ---
:1955 Author Organization [facility] Address [address] [place] [address]- Care Team Providers Name Role Phone Bianca Alex MD Primary Care Physician Encounter [facility] [place] Date(s): 05/14/19 - 09/11/19 [facility] [address] [place] [address]- [facility] Attending Physician: Min Vazquez MD Admitting Physician: Min Vazquez MD Referring Physician: Bianca Alex MD Allergies, [...] GALVEZ, # 30 tablet, 5 Refills, Maintenance, [facility] 31829, 166, cm, 02/08/19 10:15:00 EDT, Height, 107.5, [...] Papillary carcinoma of Active thyroid(Confirmed) Eri Aldana Donte/MARY 02/25/18 Active [phone](Confirmed) UI - Urinary incontinence(Confirmed) Active Social History Social History Type Response Smoking Status Never smoker entered on: 04/11/14 Sex
--- OUTSIDE RECORDS SUMMARY | 2022-05-06 21:06 | XMS_ITS | Continuity of Care Document ---
:1955 Author Organization [facility] Address [address] [place] [address]- Care Team Providers Name Role Phone Cole Talbot MD, Yael Wilson Primary Care Physician En[place] [facility] [place] Date(s): 01/11/21 - 04/07/[address] [address] Attending Physician: Min Vazquez MD Admitting Physician: [...] Refills, Maintenance, 09/07/20 10:42:00 EST, [facility]int[facility], [id number], Partial fill upon patient request if the [...] tablet, 11 Refills, Maintenance, 03/18/22 14:17:00 EDT, [facility]/pharmacy #[id number], Partial fill upon patient request if the [...] tablet, 11 Refills, Maintenance, 09/07/20 10:42:00 EST, [facility]/pharmacy #[id number], Partial fill upon patient request [...] mL, 0 Refills, Maintenance, 03/04/22 15:59:00 EDT, [facility]/pharmacy #[id number], Partial fill upon patient request [...] kit, 0 Refills, Maintenance, 01/17/22 15:47:00 EDT, [facility]/pharmacy #[id number], Partial fill upon patient request [...] Active Papillary carcinoma of Active thyroid(Confirmed) Eri MILLS/LU 02/25/18 Active [phone](Confirmed) UI - Urinary incontinence(Confirmed) Active Social History Social History Type Response Smoking Status Never smoker entered on: 04/11/14 Sex Care Team PersonnelName: Cole Talbot MD , Yael Wilson Address: [address] [place] [address]
--- OUTSIDE RECORDS SUMMARY | 2022-05-06 21:06 | XMS_ITS | Continuity of Care Document ---
:1955 Author Organization [facility] Address [address] [place] [address]- Care Team Providers Name Role Phone Cole Talbot MD, Bianca Wilson Primary Care Physician Encounter [place] Date(s): 02/17/20 - 03/18/20 [facility] Endocrinology and Diabetes [address] [place] [address] [facility] Attending Physician: AdmKevyn alcantar Admitting Physician: Admtr, Ar8 Referring Physician: Admtr, Ar8 Allergies, Adverse Reactions, [...] oral tablet, extended release See Instructions, SUKHDEEP LEWIS GALVEZ, # 30 tablet, 0 Refills, 03/17/20 8:47:00 EDT, [facility]/pharmacy #[id number], Please instruct patient to call our office [...] 3 Refills, Maintenance, 02/17/20 11:14:00 EDT, Tablet, [facility]/pharmacy #[id number], 166, cm, 02/17/20 10:21:00 EDT, Height, 107.5, kg, 02/08/1910:15:00 EDT, Dry Weight Start Date: 02/17/20 Stop Date: 02/11/21 Status: OrderedTrulicity Pen 0.75 mg/0.5 mL subcutaneous solution Subcutaneous Infusion, 0 Refills, Maintenance, 08/06/18 9:28:48 EST Start Date: 08/06/18 Status: Ordered Problem List Condition Effective Dates Status Health Status Informant Cystocele(Confirmed) Active Dyspareunia(Confirmed) Active Papillary carcinoma of Active thyroid(Confirmed) Eri MILLS/LU 02/25/18 Active [phone](Confirmed) UI - Urinary incontinence(Confirmed) Active Social History Social History Type Response Smoking Status Never smoker entered on: 04/11/14 Sex
--- OUTSIDE RECORDS SUMMARY | 2022-05-06 21:06 | XMS_ITS | Continuity of Care Document ---
:1955 Author Organization [facility] [employer] [facility] Address [address] [place] [address], [address] [place] [address]- Care Team Providers Name Role Phone Cole Talbot MD, Bianca Wilson Primary Care Physician Encounter [facility] Date(s): 09/09/19 - 09/19/19 [facility] [employer] [facility] [address] [place] [address], [address] [place] [address]- Attending Physician: Kevyn Garay Admitting Physician: Kevyn Garay Referring Physician: AdmtrKevyn Allergies, Adverse Reactions, Alerts Substance Reaction Severity [...] GALVEZ, # 30 tablet, 5 Refills, Maintenance, [facility] [address], 166, cm, 02/08/19 10:15:00 EDT, Height, 107.5, [...] Active thyroid(Confirmed) Eri Aldana Donte/MARY 02/25/18 Active [phone](Confirmed) UI - Urinary incontinence(Confirmed) Active Social History Social History Type Response Smoking Status Never smoker entered on: 04/11/14 Sex
--- OUTSIDE RECORDS SUMMARY | 2022-05-06 21:06 | XMS_ITS | Continuity of Care Document ---
:1955 Author Organization [facility] Address [address] [place] [address]- Care Team Providers Name Role Phone Cole Talbot MD, Bianca Wilson Primary Care Physician En[place] [facility] Date(s): 05/01/20 - 05/31/20 [facility] Endocrinology and Diabetes [address] [place] [address] [facility] Allergies, Adverse Reactions, Alerts Substance Reaction Severity [...] ANDREWS TODOS LOS GALVEZ, # 30 tablet, 0 Refills, 03/17/20 8:47:00 EDT, [facility]/pharmacy #[id number], Please instruct patient to call our office [...] 3 Refills, Maintenance, 02/17/20 11:14:00 EDT, Tablet, [facility]/pharmacy #[id number], 166, cm, 02/17/20 10:21:00 EDT, Height, 107.5, kg, 02/08/1910:15:00 EDT, Dry Weight Start Date: 02/17/20 Stop Date: 02/11/21 Status: OrderedTrulicity Pen 0.75 mg/0.5 mL subcutaneous solution Subcutaneous Infusion, 0 Refills, Maintenance, 08/06/18 9:28:48 EST Start Date: 08/06/18 Status: Ordered Problem List Condition Effective Dates Status Health Status Informant Cystocele(Confirmed) Active Dyspareunia(Confirmed) Active Papillary carcinoma of Active thyroid(Confirmed) Eri Aldana N/BHMARY 02/25/18 Active [phone](Confirmed) UI - Urinary incontinence(Confirmed) Active Social History Social History Type Response Smoking Status Never smoker entered on: 04/11/14 Sex
--- OUTSIDE RECORDS SUMMARY | 2022-05-06 21:06 | XMS_ITS | Continuity of Care Document ---
:1955 Author Organization [facility]inology and D luíst[facility] Address [address] [place] [address]- Care Team Providers Name Role Phone Cole Talbot MD, Yael Wilson Primary Care Physician En[place] [facility] Date(s): 03/05/22 - 04/04/22 [facility] Endocrinology and Diabetes [address] [place] [address] Attending Physician: AdmKevyn alcantar Admitting Physician: [...] Refills, Maintenance, 09/07/20 10:42:00 EST, [facility]int[facility], [id number], Partial fill upon patient request if the [...] tablet, 11 Refills, Maintenance, 03/18/22 14:17:00 EDT, [facility]/pharmacy #[id number], Partial fill upon [...] tablet, 11 Refills, Maintenance, 09/07/20 10:42:00 EST, [facility]/pharmacy #[id number], Partial fill upon [...] mL, 0 Refills, Maintenance, 03/04/22 15:59:00 EDT, [facility]/pharmacy #[id number], Partial fill upon [...] kit, 0 Refills, Maintenance, 01/17/22 15:47:00 EDT, [facility]/pharmacy #[id number], Partial fill upon [...] Active Papillary carcinoma of Active thyroid(Confirmed) Eri Adlana N/CP 02/25/18 Active [phone](Confirmed) UI - Urinary incontinence(Confirmed) Active Social History Social History Type Response Smoking Status Never smoker entered on: 04/11/14 Sex Care Team PersonnelName: Cole Talbot MD , Yael Wilson Address: [address] [place] [address]
--- OUTSIDE RECORDS SUMMARY | 2022-05-06 21:06 | XMS_ITS | Continuity of Care Document ---
:1955 Author Organization [facility] Address [address] [place] [address], [address] [place] [address]- Care Team Providers Name Role Phone Cole Talbot MD, Bianca Wilson Primary Care Physician Encounter [facility] AC[facility] R [id number] Date(s): 09/07/20 - 10/07/20 [facility] [address] [facility], [address] [place] [address] Attending Physician: Kevyn Garay Admitting Physician: AdmtrKevyn Referring Physician: Admtr ArPrabhu Allergies, Adverse Reactions, Alerts Substance Reaction Severity [...] Refills, Maintenance, 09/07/20 10:42:00 EST, Ointment, [id number], Partial fill upon patient request if the [...] 09/07/20 10:42:00 EST, [facility]/pharmacy #[id number], Partial fill upon patient request if the [...] 3 Refills, Maintenance, 02/17/20 11:14:00 EDT, Tablet, [facility]/pharmacy #[id number], 166, cm, 02/17/20 10:21:00 EDT, [...] Active thyroid(Confirmed) Eri Aldana N/BHCP 02/25/18 Active [phone](Confirmed) UI - Urinary incontinence(Confirmed) Active Social History Social History Type Response Smoking Status Never smoker entered on: 04/11/14 Sex
--- OUTSIDE RECORDS SUMMARY | 2022-05-06 21:06 | XMS_ITS | Continuity of Care Document ---
:1955 Author Organization [facility] Address [address] [place] [address]- Care Team Providers Name Role Phone Not on Staff, PCP Primary Care Physician Unavailable [place] [facility] [place] Date(s): 09/24/19 - 01/22/20 [facility] [address] [place] [address]- [facility] Attending Physician: Min Vazquez MD Admitting Physician: [...] GALVEZ, # 30 tablet, 5 Refills, Maintenance, [facility] [id number], 166, cm, 02/08/19 10:15:00 EDT, Height, 107.5, [...] Active thyroid(Confirmed) Eri Aldana Donte/MARY 02/25/18 Active [phone](Confirmed) UI - Urinary incontinence(Confirmed) Active Social History Social History Type Response Smoking Status Never smoker entered on: 04/11/14 Sex
--- OUTSIDE RECORDS SUMMARY | 2022-05-06 21:06 | XMS_ITS | Continuity of Care Document ---
:1955 Author Organization [facility] Address [address] [place] [address]- Care Team Providers Name Role Phone Cole Talbot MD, Bianca Wilson Primary Care Physician [place] [facility] [place] 10[place]09/19 [facility] [address] [place] [address]- Attending Physician: Humera Rivera MD Admitting Physician: [...] GALVEZ, # 30 tablet, 5 Refills, Maintenance, [facility] [id number], 166, cm, 02/08/19 10:15:00 EDT, Height, 107.5, [...] Active thyroid(Confirmed) Eri Aldana Donte/MARY 02/25/18 Active [phone](Confirmed) UI - Urinary incontinence(Confirmed) Active Social History Social History Type Response Smoking Status Never smoker entered on: 04/11/14 Sex
--- NOTE | 2022-05-06 21:07 | ECG_ITS ---
Test Reason : WEAKNESS Blood Pressure : / mmHG Vent. Rate : 068 BPM Atrial Rate : 068 BPM P-R Int : 180 ms QRS Dur : 088 ms QT Int : 414 ms P-R-T Axes : 046 -05 029 degrees QTc Int : 440 ms Normal sinus rhythm Minimal voltage criteria for LVH, may be normal variant ( R in aVL ) Borderline ECG When compared with ECG of 10-OCT-2021 08:04, No significant change was found Referred By: Aaron Perez Electronically Signed By:JERALD FREEDMAN MD
--- OUTSIDE RECORDS SUMMARY | 2022-05-06 21:07 | XMS_ITS | Continuity of Care Document ---
:1955 Author Organization [facility] Address [address] [place] [address]- Care Team Providers Name Role Phone Cole Talbot MD, Xi Primary Care Physician [place] [facility] [place]s): 01/11/21 - 02/10/21 [facility] [address] [place], [place] [address] Attending Physician: AdmtrKevyn Admitting Physician: Admtr, Kevyn Referring Physician: Admtr, [...] Refills, Maintenance, 09/07/20 10:42:00 EST, Ointment, [id number], Partial fill upon patient request if the [...] tablet, 11 Refills, Maintenance, 09/07/20 10:42:00 EST, [facility]/pharmacy #[id number], Partial fill upon patient request if the [...] 3 Refills, Maintenance, 02/17/20 11:14:00 EDT, Tablet, [facility]/pharmacy #[id number], 166, cm, 02/17/20 10:21:00 EDT, Height, 107.5, kg, 02/08/1910:15:00 EDT, Dry Weight Start Date: 02/17/20 Stop Date: 02/11/21 Status: OrderedTrulicity Pen 0.75 mg/0.5 mL subcutaneous solution Subcutaneous Infusion, 0 Refills, Maintenance, 08/06/18 9:28:48 EST Start Date: 08/06/18 Status: Ordered Problem List Condition Effective Dates Status Health Status Informant Cystocele(Confirmed) Active Dyspareunia(Confirmed) Active Papillary carcinoma of Active thyroid(Confirmed) Eri Aldana N/MARY 02/25/18 Active [phone](Confirmed) UI - Urinary incontinence(Confirmed) Active Social History Social History Type Response Smoking Status Never smoker entered on: 04/11/14 Sex
--- OUTSIDE RECORDS SUMMARY | 2022-05-06 21:07 | XMS_ITS | Continuity of Care Document ---
:1955 Author Organization [facility] Address [address] [place] [address]- Care Team Providers Name Role Phone Cole Talbot MD, Yael Wilson Primary Care Physician Encounter [facility] [place] Date(s): 03/08/22 - 04/07/22 [facility] [address] [place] [address]- Allergies, Adverse Reactions, Alerts Substance Reaction Severity [...] Refills, Maintenance, 09/07/20 10:42:00 EST, Ointment, [id number], Partial fill upon patient request if the [...] tablet, 11 Refills, Maintenance, 03/18/22 14:17:00 EDT, [facility]/pharmacy #[id number], Partial fill upon patient request if [...] tablet, 11 Refills, Maintenance, 09/07/20 10:42:00 EST, [facility]/pharmacy #[id number], Partial fill upon patient request if [...] Active thyroid(Confirmed) Eri Aldana BHN/BHMARY 02/25/18 Active [phone](Confirmed) UI - Urinary incontinence(Confirmed) Active Social History Social History Type Response Smoking Status Never smoker entered on: 04/11/14 Sex Care Team PersonnelName: Cole Talbot MD , Yael Wilson Address: [address] [place] [address]
--- OUTSIDE RECORDS SUMMARY | 2022-05-06 21:07 | XMS_ITS | Continuity of Care Document ---
:1955 Author Organization [facility] Address [address] [place] [address]- Care Team Providers Name Role Phone Not on Staff, PCP Primary Care Physician Unavailable [place] [facility] [facility] [place] 02/25/20 [facility] [address] [place] [address]- [facility] Allergies, Adverse Reactions, Alerts Substance Reaction Severity [...] GALVEZ, # 30 tablet, 5 Refills, Maintenance, [facility] 97876, 166, cm, 02/08/19 10:15:00 EDT, Height, 107.5, [...] Papillary carcinoma of Active thyroid(Confirmed) Eri Aldana Donte/LU 02/25/18 Active [phone](Confirmed) UI - Urinary incontinence(Confirmed) Active Social History Social History Type Response Smoking Status Never smoker entered on: 04/11/14 Sex
--- OUTSIDE RECORDS SUMMARY | 2022-05-06 21:07 | XMS_ITS | Continuity of Care Document ---
:1955 Author Organization [facility] Address [address] [place] [address]- Care Team Providers Name Role Phone Cole Talbot MD, Yael Wilson Primary Care Physician [place] [facility] [place] Date(s): 04/04/21 - 06/12/[address] [address] Attending Physician: Min Vazquez MD Admitting Physician: Min Vazquez MD Referring Physician: Min Vazquez MD Allergies, Adverse Reactions, [...] Refills, Maintenance, 09/07/20 10:42:00 EST, [facility]intment, [id number], Partial fill upon patient request if the [...] tablet, 11 Refills, Maintenance, 09/07/20 10:42:00 EST, [facility]/pharmacy #[id number], Partial fill upon patient request if the [...] 3 Refills, Maintenance, 02/20/21 10:29:00 EDT, Tablet, [facility]/pharmacy #[id number], 166, cm, 02/20/21 10:05:00 EDT, Height, 101.5, kg,... Start Date: 02/20/21 Stop Date: 02/15/22 Status: OrderedTrulicity Pen 0.75 mg/0.5 mL subcutaneous solution Subcutaneous Infusion, 0 Refills, Maintenance, 08/06/18 9:28:48 EST Start Date: 08/06/18 Status: Ordered Problem List Condition Effective Dates Status Health Status Informant Cystocele(Confirmed) Active Dyspareunia(Confirmed) Active Papillary carcinoma of Active thyroid(Confirmed) Eri Aldana N/CP 02/25/18 Active [phone](Confirmed) UI - Urinary incontinence(Confirmed) Active Social History Social History Type Response Smoking Status Never smoker entered on: 04/11/14 Sex
--- OUTSIDE RECORDS SUMMARY | 2022-05-06 21:07 | XMS_ITS | Continuity of Care Document ---
:1955 Author Organization [facility] Address [address] [place] [address]- Care Team Providers Name Role Phone Cole Talbot MD, Yael Wilson Primary Care Physician [place] [facility] [place] 02/11/21 [facility] [address] [place] [address]- Allergies, Adverse Reactions, Alerts Substance Reaction Severity [...] Refills, Maintenance, 09/07/20 10:42:00 EST, Ointment, [id number], Partial fill upon patient request if the [...] tablet, 11 Refills, Maintenance, 09/07/20 10:42:00 EST, [facility]/pharmacy #[id number], Partial fill upon patient request if the [...] 3 Refills, Maintenance, 02/17/20 11:14:00 EDT, Tablet, [facility]/pharmacy #[id number], 166, cm, 02/17/20 10:21:00 EDT, Height, 107.5, kg, 02/08/1910:15:00 EDT, Dry Weight Start Date: 02/17/20 Stop Date: 02/11/21 Status: OrderedTrulicity Pen 0.75 mg/0.5 mL subcutaneous solution Subcutaneous Infusion, 0 Refills, Maintenance, 08/06/18 9:28:48 EST Start Date: 08/06/18 Status: Ordered Problem List Condition Effective Dates Status Health Status Informant Cystocele(Confirmed) Active Dyspareunia(Confirmed) Active Papillary carcinoma of Active thyroid(Confirmed) Eri Aldana Donte/MARY 02/25/18 Active [phone](Confirmed) UI - Urinary incontinence(Confirmed) Active Social History Social History Type Response Smoking Status Never smoker entered on: 04/11/14 Sex
--- OUTSIDE RECORDS SUMMARY | 2022-05-06 21:07 | XMS_ITS | Continuity of Care Document ---
:1955 Author Organization [facility] Address [address] [place] [address]- Care Team Providers Name Role Phone Cole Talbot MD, Bianca Wilson Primary Care Physician [place] [facility] [place](s[place] 03/19/19 - 07/17/19 [facility] [facility] [address] [place] [address]- Attending Physician: Humera Rivera MD Admitting Physician: [...] Papillary carcinoma of Active thyroid(Confirmed) Eri Aldana Donte/[facility] 02/25/18 Active [phone](Confirmed) UI - Urinary incontinence(Confirmed) Active Social History Social History Type Response Smoking Status Never smoker entered on: 04/11/14 Sex
[2022-05-06] MEDS: Levothyroxine Sodium 175 MCG TABLET PO (21:49)
[2022-05-06 22:00] LABS: MANUAL DIFF FLAG NO
[2022-05-06 22:01] LABS: Basophils Absolute Auto 0.1 X10*3/uL (0.0-0.2); Basophils Percent Auto 0.9 % (0-2); Eosinophils Absolute Auto 0.3 X10*3/uL (0.0-0.4); Eosinophils Percent Auto 3.9 % (0-4); Hemoglobin 13.1 g/dl (12.0-16.0); Imm Gran Abs Auto 0.02 X10*3/uL (0.00-0.03); Imm Gran Pct Auto 0.3 % (0.0-0.4); Lymphocytes Percent Auto 28.2 % (20-40); Mean Corpuscular HGB Conc 33.6 g/dl (31.0-35.0); Mean Corpuscular Hemoglobin 28.3 pg (27.0-33.0); Mean Corpuscular Volume 84.2 fL (80.0-98.0); Monocytes Absolute Auto 0.7 X10*3/uL (0.1-1.2); Monocytes Percent Auto 9.8 % (2-11); Neutrophils Percent Auto 56.9 % (45-73); Platelet Count 202 X10*3/uL (160-400); Red Blood Count 4.63 X10*6/uL (4.20-5.50); Red Cell Distribution Width 12.7 % (11.0-16.0)
[2022-05-06 22:25] LABS: Alanine Aminotransferase 41 U/L (0-31); Albumin Level 3.9 g/dL (3.5-5.0); Alkaline Phosphatase 212 U/L (39-117); Anion Gap 14 (12-20); Aspartate Amino Transferase 61 U/L (5-31); Bilirubin Total 0.4 mg/dL (0.0-1.0); Blood Urea Nitrogen 17 mg/dL (9-16); Calcium 9.4 mg/dL (8.4-10.2); Carbon Dioxide 30 mmol/L (22-29); Chloride 99 mmol/L (96-108); Creatinine Clr Calc Pharmacy 49.8; Estimated Glomerular Filt Rate 46; Glucose Random 231 mg/dL (60-115); Magnesium 1.9 mg/dL (1.6-2.6); Potassium 4.4 mmol/L (3.3-5.1); Sodium 139 mmol/L (135-145); Total Protein 7.8 g/dL (6.5-8.0)
[2022-05-06 22:33] VITALS: BP 159/80; PULSE 69; RESP 16; O2SAT 98
[2022-05-06 22:41] LABS: Appearance Urine Clear; Color Urine Yellow; Glucose Urine UA Negative (Negative); Leukocyte Esterase Urine Moderate (2+) (Negative); Nitrite Urine Negative (Negative); UMIC TRIGGER UACC YES; Urine Blood Negative (Negative); Urine Ketones Negative (Negative); Urine Protein Negative (Neg-Trace)
[2022-05-06 22:46] LABS: Thyroid Stimulating Hormone 26.39 uIU/mL (0.32-4.0)
[2022-05-06 22:59] LABS: Bacteria Urine Trace (None Seen); Hyaline Casts Urine 0-2 /LPF (0-2); RBC Urine 0-2 /HPF (0-2); UACC Culture Trigger YES; WBC Urine 21-50 /HPF (0-5)
[2022-05-06 23:15] VITALS: BP 148/89; PULSE 74; RESP 16; O2SAT 98
== END 2022-05-06 23:53 | disposition home or self-care (01) ==
PROVIDERS: Emergency Provider Internal Medicine; PCP Internal Medicine
DX: E01.8 Other iodine-deficiency related thyroid disorders and allied conditions (principal); N39.0 Urinary tract infection, site not specified; R53.1 Weakness; I10 Essential (primary) hypertension; E11.9 Type 2 diabetes mellitus without complications; E78.5 Hyperlipidemia, unspecified; E66.9 Obesity, unspecified; Z68.35 Body mass index [BMI] 35.0-35.9, adult; Z79.84 Long term (current) use of oral hypoglycemic drugs; Z79.899 Other long term (current) drug therapy; Z79.02 Long term (current) use of antithrombotics/antiplatelets
CPT/HCPCS: 36415; 80053; 81001; 83735; 84443; 85025; 87086; 93005; 99284

== ENCOUNTER 2022-05-15 08:55 | Outpatient (REF) | payer OTHER, SELFPAY ==
--- NOTE | ~2022-05-15 | MM_ITS ---
EXAMINATION: MM SCREENING DIGITAL BREAST TOMOSYNTHESIS, BILATERAL CLINICAL INFORMATION: Screening. Asymptomatic. The lifetime risk of breast cancer based on the Tyrer-Cuzick Model is 3%. COMPARISON: Mammography: May 10, 2021 and studies dating back to August 29, 2015 TECHNIQUE: Digital breast tomosynthesis is performed in both the craniocaudal and mediolateral oblique views along with computer-aided detection (CAD). Synthesized 2D images are generated from the tomosynthesis. FINDINGS: The breasts are almost entirely fatty (ACR BI-RADS breast composition Category a). There are no significant masses, abnormal calcifications, or other abnormalities. MM/MM tomosynthesis screening BI IMPRESSION: No significant change from ASSESSMENT: BI-RADS 1: Negative RECOMMENDATION: Routine annual mammography screening. This patient's information was entered into a reminder system with a target due date for their next mammogram.
== END 2022-05-15 08:56 | disposition home or self-care (01) ==
LOC: HO.MAMMO 08:55
PROVIDERS: PCP Internal Medicine; Visit Provider Internal Medicine
DX: Z12.31 Encounter for screening mammogram for malignant neoplasm of breast (principal)
CPT/HCPCS: 77063; 77067

== ENCOUNTER 2022-05-27 03:18 | Emergency (ER) | payer OTHER, SELFPAY ==
--- NOTE | ~2022-05-27 | XR_ITS ---
EXAMINATION: XR CHEST CLINICAL INFORMATION: Pedal edema. COMPARISON: 03/11/2020 TECHNIQUE: Frontal view of the chest was obtained. FINDINGS: Large body habitus. Lungs are mildly hypoinflated and grossly clear. No evidence of pulmonary edema, consolidation or pleural effusion. Cardiac silhouette is normal in size. No acute skeletal findings within the examined [id number]. XR/XR chest 1V IMPRESSION: No evidence of congestive heart failure. No acute abnormalities compared to 03/11/2020.
--- NOTE | ~2022-05-27 | US_ITS ---
EXAMINATION: US VENOUS ULTRASOUND WITH DOPPLER LOWER EXTREMITY, BILATERAL CLINICAL INFORMATION: Lower extremity edema and pain. COMPARISON: Prior ultrasound from 02/11/2018 and 07/01/2019 TECHNIQUE: Ultrasound of the deep veins is performed from the hip to the calf with compression sonography and color and pulse Doppler assessment. Spectral analysis with color-flow imaging is performed. FINDINGS: The common femoral vein is compressible and exhibits a normal phasic waveform, bilaterally; this suggests that the iliac veins are widely patent above. Within each proximal thigh, the visualized profunda femoris vein is patent. The visualized greater saphenous veins and saphenofemoral junctions are patent. Venous reflux is observed in a short segment of the left greater saphenous vein at the saphenofemoral junction (image 40 of 64). Superficial femoral vein is patent in the proximal, mid and distal aspect of each thigh. Popliteal vein is normal to the level of the trifurcation, bilaterally, and the visualized posterior tibial and peroneal veins are patent. No evidence of Julien's cyst. US/US venous duplex LE BI IMPRESSION: No evidence of deep vein thrombosis in either lower extremity.
[2022-05-27 03:31] VITALS: BP 178/92; BP 179/67; PULSE 74; PULSE 85; RESP 16; TEMP 37.2; O2SAT 98; BMI 38.0
[2022-05-27 03:36] VITALS: BP 179/67; PULSE 74; RESP 16; TEMP 37.2; O2SAT 98
[2022-05-27 03:50] LABS: MANUAL DIFF FLAG NO
[2022-05-27 03:51] LABS: Basophils Absolute Auto 0.1 X10*3/uL (0.0-0.2); Eosinophils Absolute Auto 0.2 X10*3/uL (0.0-0.4); Eosinophils Percent Auto 4.2 % (0-4); Hematocrit 35.3 % (37.0-47.0); Hemoglobin 11.7 g/dl (12.0-16.0); Imm Gran Abs Auto 0.01 X10*3/uL (0.00-0.03); Imm Gran Pct Auto 0.2 % (0.0-0.4); Lymphocytes Absolute Auto 1.7 X10*3/uL (1.2-4.9); Lymphocytes Percent Auto 32.8 % (20-40); Mean Corpuscular HGB Conc 33.1 g/dl (31.0-35.0); Mean Corpuscular Hemoglobin 28.3 pg (27.0-33.0); Mean Corpuscular Volume 85.3 fL (80.0-98.0); Mean Platelet Volume 12.9 fL (9.4-12.3); Monocytes Absolute Auto 0.6 X10*3/uL (0.1-1.2); Monocytes Percent Auto 11.1 % (2-11); Neutrophils Absolute Auto 2.6 x10*3/uL (2.0-8.3); Neutrophils Percent Auto 50.7 % (45-73); Platelet Count 145 X10*3/uL (160-400); Red Blood Count 4.14 X10*6/uL (4.20-5.50); White Blood Count 5.1 X10*3/uL (4.8-10.8)
[2022-05-27 04:10] LABS: COVID-19 Test Negative (Negative)
[2022-05-27 04:24] LABS: Anion Gap 15 (12-20); Blood Urea Nitrogen 22 mg/dL (9-16); Calcium 9.5 mg/dL (8.4-10.2); Carbon Dioxide 25 mmol/L (22-29); Chloride 107 mmol/L (96-108); Creatinine Clr Calc Pharmacy 79.5; Estimated Glomerular Filt Rate > 60; Glucose Random 166 mg/dL (60-115); Potassium 4.6 mmol/L (3.3-5.1); Sodium 142 mmol/L (135-145)
[2022-05-27 07:10] VITALS: BP 169/62; PULSE 70; RESP 21; O2SAT 98
--- NOTE | 2022-05-27 08:54 | ED.GENADULT ---
HPI - General Adult General Chief complaint: General Medical Stated complaint: left leg pain with edema Time Seen by Provider: 05/27/22 08:08 Source: patient History of Present Illness HPI narrative: 66-year-old female with a past medical history of hypothyroidism, anxiety, depression, diabetes, HLD, GERD, thyroid CA s/p thyroidectomy, presenting to the ED c/o left-sided low back pain radiating down left lower extremity with left lower extremity swelling x few days. Admits has been out of her HCTZ for about 3 weeks. Denies taking anticoagulation. Denies known injury, trauma or fall. Denies recent travel, history of clots, SOB, CP, abdominal pain, nausea/vomiting, urine incontinence/retention, fever Onset (ago): day(s) Related Data Home Medications Medication Instructions Recorded Confirmed escitalopram oxalate 10 mg tablet 10 mg PO DAILY 06/26/20 05/23/22 gabapentin 300 mg capsule 300 mg PO BID 12/15/20 05/23/22 hydroxyzine HCl 25 mg tablet 25 mg PO Q8H PRN anxiety 12/15/20 05/23/22 mirabegron 25 mg tablet,extended 25 mg PO DAILY 12/15/20 05/23/22 release 24 hr clobetasol 0.05 % topical ointment 1 appl topical DAILY 04/02/22 05/23/22 diphenhydramine HCl 25 mg capsule 25 mg PO BEDTIME PRN 04/02/22 05/23/22 (Banophen) levothyroxine 175 mcg tablet 0 mcg PO 05/23/22 05/23/22 (Synthroid) Previous Rx's Medication Instructions Recorded triamcinolone acetonide 0.1 % 1 appl topical BID rash 10 days 08/21/20 topical cream #15 grams hydrocortisone 1 % topical cream 1 appl topical BID PRN skin 09/01/20 (Anti-Itch (hydrocortisone)) irritation 14 days #28.35 grams alprazolam 1 mg tablet (Xanax) 1 - 2 mg PO ONCE To be taken 1 03/20/21 hour before MRI #2 tabs toilet seat elevator #1 ea 04/10/21 dulaglutide 0.75 mg/0.5 mL 0.75 mg (0.5 mL) subcut QWEEK 30 06/05/21 subcutaneous pen injector days #2 mL (Trulicity) blood sugar diagnostic (FreeStyle 1 strip miscellaneous TID 90 days 08/15/21 Lite Strips) #300 strips lancets 28 gauge (FreeStyle #300 ea 10/16/21 Lancets) white petrolatum 41 % topical 1 appl topical DAILY PRN dry skin 10/31/21 ointment (Aquaphor Healing) 2 weeks #20 grams pen needle, diabetic 32 gauge x 1 ea subcut DAILY #30 ea 11/02/21 (BD Ultra-Fine Aarti Pen Needle) metformin 500 mg tablet 1,000 mg PO BID #120 tabs 11/28/21 alcohol swabs (Alcohol Pads) 1 pad topical .COMPLEX #200 pad 01/14/22 diclofenac sodium 1 % topical gel 2 g topical QID 1 month #100 grams 04/16/22 insulin glargine 100 unit/mL (3 15 unit (0.15 mL) subcut DAILY 30 04/16/22 mL) subcutaneous pen ( #4.5 mL Solostar U-100 Insulin) tramadol 50 mg tablet 50 mg PO BID PRN pain #10 tabs 04/16/22 dicyclomine 20 mg tablet 20 mg PO TID 30 days #90 tabs 05/12/22 lidocaine 5 % topical patch 1 patch topical DAILY PRN pain 05/20/22 (scale score 7-10) 15 days #15 ea hydrochlorothiazide 25 mg tablet 25 mg PO DAILY 90 days #90 tabs 05/23/22 omeprazole 20 mg capsule,delayed 20 mg PO QAM 90 days #90 caps 05/23/22 release acetaminophen 500 mg tablet 500 mg PO Q6H PRN fever or pain 05/27/22 (Tylenol Extra Strength) #14 tabs cefuroxime axetil 250 mg tablet 250 mg PO BID 7 days #14 tabs 05/27/22 cyclobenzaprine 5 mg tablet 5 mg PO Q8H PRN pain (scale score 05/27/22 7-10) 5 days #14 tabs lidocaine 5 % topical patch 1 patch topical DAILY PRN pain #30 05/27/22 (Lidoderm) ea naproxen 500 mg tablet 500 mg PO BID PRN pain 10 days #20 05/27/22 tabs Allergies Allergy/AdvReac Type Severity Reaction Status Date / Time enalapril [ENALAPRIL] Allergy Intermediate Cough Verified 05/23/22 08:54 cephalexin [From KEFLEX] Allergy Mild rash Verified 05/23/22 08:54 ciprofloxacin [CIPROFLOXACIN] Allergy Mild HIVES,RASH Verified 05/23/22 08:54 levothyroxine sodium Allergy Mild RASH WITH Verified 05/23/22 08:54 [LEVOTHYROXINE SODIUM] GENERIC MED nitrofurantoin Allergy Mild RASH Verified 05/23/22 08:54 [NITROFURANTOIN] Penicillins [PENICILLINS] Allergy Mild RASH Verified 05/23/22 08:54 sulfamethoxazole Allergy Mild rash Verified 05/23/22 08:54 [From BACTRIM] trimethoprim [From BACTRIM] Allergy Mild rash Verified 05/23/22 08:54 ALL GENERIC MEDS Allergy Mild Rash Uncoded 05/23/22 08:54 SHRIMP Allergy Unknown Unknown Uncoded 05/23/22 08:54 Review of Systems Review of Systems: Constitutional: No Fever, No Chills, No Fatigue, No Malaise ENT/Mouth: No Ear Pain, No Nasal Congestion, No sore throat, No Rhinorrhea, No Swallowing Difficulty Eyes: No Eye Pain, No Swelling, No Redness, No Vision Changes Cardiovascular: No Chest Pain, No SOB, No Dyspnea on Exertion, No Orthopnea, + Edema, No Palpitations Respiratory: No Cough, No Sputum, No Dyspnea Gastrointestinal: No Nausea, No Vomiting, No Diarrhea, No Constipation, No Abdominal pain Genitourinary: o Dysuria, No Urinary Frequency, No Hematuria, No Urinary Incontinence/retention, No Urgency, No Flank Pain, No Urinary Flow Changes, No Hesitancy Musculoskeletal: No joint pain, No Myalgias, No Joint Swelling Skin: No Skin Lesions, No rash Neuro: No Weakness, No Numbness, No Paresthesias, No Dizziness, No Headache Yes all other systems are reviewed and are negative Constitutional: Constitutional: Reports as per [facility] Past Medical History Attestation statement: The following information was validated with the patient. 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 Mother Diabetes Sister Lung cancer Brother H/O heart surgery Diabetes Son Epilepsy Social History Social History Household Members: Significant Other Housing: Apartment Alcohol intake: never Patient Tobacco Use Status: Never used Tobacco e-Cigarette/Vaping Use: Never Used Second Hand Smoke Exposure: No Use of substances other than those prescribed or required for medical reasons: No Advance Directives: No service: No Current occupational status: disabled Gender identity: Female Cognitive needs: Yes Hearing needs: No Vision needs: No Physical Exam ED Vital Signs: Vital Signs - 24 hr 05/27/22 03:31 05/27/22 03:36 05/27/22 07:10 Temperature 98.9 F 98.9 F Pulse Rate 74 74 70 Respiratory Rate 16 16 21 H Blood Pressure 179/67 H 179/67 H 169/62 H Pulse Oximetry 98 98 98 Oxygen Delivery Method Room Air Room Air Room Air 05/27/22 10:16 05/27/22 10:44 Temperature 97.7 F Pulse Rate 70 74 Respiratory Rate 20 14 Blood Pressure 169/65 H 153/70 H Pulse Oximetry 97 99 Oxygen Delivery Method Room Air Room Air BMI result Body Mass Index 38.0 Const General: cooperative and no acute distress Orientation/consciousness: patient oriented x3 Limitations: no limitations HENMT Head: Yes normal to inspection and Yes atraumatic Ears: hearing grossly normal bilaterally General nose exam: Normal external nose present Face and sinus: Yes normal facial exam Eyes General: appearance normal, both eyes and all related structures EOM: EOMs intact bilaterally Neck Neck: Yes normal visual inspection and Yes no meningeal signs Resp Effort & Inspection: normal respiratory effort and no respiratory distress Auscultation: clear to auscultation bilaterally, no crackles, no rales, no rhonchi and no wheezes Cardio Rate: regular rate Heart sounds: S1 normal heart sound present and S2 normal heart sound present Peripheral pulses: Peripheral pulses 2+ throughout GI Inspection: Yes normal to inspection Palpation (GI): Soft to palpation, nontender, no guarding and not rigid General: Yes no CVA tenderness Back/Spine/Pelvis Other: No midline thoracic/lumbar spinous tenderness/step-off or deformity. + left-sided lower lumbar MSK tenderness to palpation, no crepitus/ecchymosis or erythema Back: no CVA tenderness Skin Rashes: no rashes Wounds: no wounds Neuro Other: Strength intact throughout. No saddle anesthesia. Sensation intact to light touch. Neurovascular intact distally General: patient oriented x3, tone normal, moves all extremities, no meningeal signs and no focal motor deficits Gait exam (Neuro): Normal gait present Motor exam (neuro): 5/5 motor strength present throughout Extrem General: Yes edema (+1 bilateral LE edema. +LLE calf tenderness) Course Course Course Narrative: -1052--no leukocytosis. H&H slightly lower than baseline > patient denies any hematochezia, melena, or hematuria. BUN chronically elevated. UA infected XR chest 1V IMPRESSION: No evidence of congestive heart failure. No acute abnormalities compared to 03/11/2020. US venous duplex LE BI IMPRESSION:? No evidence of deep vein thrombosis in either lower extremity. ? -AST/ALT at patients baseline. BNP 153 > patient reports sx improvement after meds given in the ED Results discussed with patient including worrisome signs and symptoms and strict return precautions, and when to return to the emergency department. They verbalized understanding and feel safe for discharge at this time. Medical Decision Making MDM Narrative Medical decision making narrative: 66-year-old female with a past medical history of hypothyroidism, anxiety, depression, diabetes, HLD, GERD, thyroid CA s/p thyroidectomy, presenting to the ED c/o left-sided low back pain radiating down left lower extremity with left lower extremity swellingx few days. On exam vital signs stable, NAD, nontoxic appearing, no midline spinous tenderness there or red flag symptoms. Mild bilateral lower extremity edema greater on the left with calf tenderness. Concern for sciatica vs MSK pain/strain vs CHF vs DVT. Low suspicion for renal stone/pyelo or pleural effusion/PE or ACS Plan: Labs, UA, CXR, venous duplex ultrasound, pain management Medical Records Medical records reviewed: Yes I reviewed the patient's medical records. Lab Data Lab results reviewed: Yes I reviewed the patient's lab results. Result diagrams: 05/27/22 03:46 05/27/22 03:46 Labs: Lab Results 05/27/22 05/27/22 05/27/22 Range/Units 03:46 03:46 03:46 WBC 5.1 (4.8-10.8) X10*3/uL RBC 4.14 L (4.20-5.50) X10*6/uL Hgb 11.7 L (12.0-16.0) g/dl Hct 35.3 L (37.0-47.0) % MCV 85.3 (80.0-98.0) fL MCH 28.3 (27.0-33.0) pg MCHC 33.1 (31.0-35.0) g/dl RDW 13.0 (11.0-16.0) % Plt Count 145 L D (160-400) X10*3/uL MPV 12.9 H (9.4-12.3) fL Immature Gran % (Auto) 0.2 (0.0-0.4) % Neut % (Auto) 50.7 (45-73) % Lymph % (Auto) 32.8 (20-40) % [place] % (Auto) 11.1 H (2-11) % Eos % (Auto) 4.2 H (0-4) % Baso % (Auto) 1.0 (0-2) % Lymph # (Auto) 1.7 (1.2-4.9) X10*3/uL [place] # (Auto) 0.6 (0.1-1.2) X10*3/uL Eos # (Auto) 0.2 (0.0-0.4) X10*3/uL Baso # (Auto) 0.1 (0.0-0.2) X10*3/uL Abs Immat Gran (auto) 0.01 (0.00-0.03) X10*3/uL Absolute Neuts (auto) 2.6 (2.0-8.3) x10*3/uL Absolute Nucleated RBC 0.000 (0.0-0.012) X10*3/uL Nucleated RBC % (auto) 0.0 (0.0-0.2) /100WBC Sodium 142 (135-145) mmol/L Potassium 4.6 (3.3-5.1) mmol/L Chloride 107 (96-108) mmol/L Carbon Dioxide 25 (22-29) mmol/L Anion Gap 15 (12-20) BUN 22 H (9-16) mg/dL Creatinine 0.82 (0.5-1.4) mg/dL Estim Creat Clear Calc 79.5 Estimated GFR > 60 Random Glucose 166 H (60-115) mg/dL Calcium 9.5 (8.4-10.2) mg/dL Total Bilirubin 0.4 (0.0-1.0) mg/dL Direct Bilirubin < 0.2 (0.0-0.5) mg/dL AST 81 H (5-31) U/L ALT 42 H (0-31) U/L Alkaline Phosphatase 129 H D (39-117) U/L B-Natriuretic Peptide (<100) pg/mL Total Protein 7.6 (6.5-8.0) g/dL Albumin 3.7 (3.5-5.0) g/dL Urine Color Urine Appearance Urine pH (5.0-9.0) Ur Specific [place]aks (1.005-1.025) Urine Protein (Neg-Trace) mg/dL Urine Glucose (UA) (Negative) mg/dL Urine Ketones (Negative) mg/dL Urine Blood (Negative) Urine Nitrite (Negative) Ur Leukocyte Esterase (Negative) Urine RBC (0-2) /HPF Urine WBC (0-5) /HPF Ur Squamous Epith Cells (0-2) /HPF Urine Bacteria (None Seen) Hyaline Casts (0-2) /LPF COVID-19 ([place]) Negative (Negative) COVID-19 Clin Com See Note 05/27/22 05/27/22 Range/Units 10:26 10:28 WBC (4.8-10.8) X10*3/uL RBC (4.20-5.50) X10*6/uL Hgb (12.0-16.0) g/dl Hct (37.0-47.0) % MCV (80.0-98.0) fL MCH (27.0-33.0) pg MCHC (31.0-35.0) g/dl RDW (11.0-16.0) % Plt Count (160-400) X10*3/uL MPV (9.4-12.3) fL Immature Gran % (Auto) (0.0-0.4) % Neut % (Auto) (45-73) % Lymph % (Auto) (20-40) % [place] % (Auto) (2-11) % Eos % (Auto) (0-4) % Baso % (Auto) (0-2) % Lymph # (Auto) (1.2-4.9) X10*3/uL [place] # (Auto) (0.1-1.2) X10*3/uL Eos # (Auto) (0.0-0.4) X10*3/uL Baso # (Auto) (0.0-0.2) X10*3/uL Abs Immat Gran (auto) (0.00-0.03) X10*3/uL Absolute Neuts (auto) (2.0-8.3) x10*3/uL Absolute Nucleated RBC (0.0-0.012) X10*3/uL Nucleated RBC % (auto) (0.0-0.2) /100WBC Sodium (135-145) mmol/L Potassium (3.3-5.1) mmol/L Chloride (96-108) mmol/L Carbon Dioxide (22-29) mmol/L Anion Gap (12-20) BUN (9-16) mg/dL Creatinine (0.5-1.4) mg/dL Estim Creat Clear Calc Estimated GFR Random Glucose (60-115) mg/dL Calcium (8.4-10.2) mg/dL Total Bilirubin (0.0-1.0) mg/dL Direct Bilirubin (0.0-0.5) mg/dL AST (5-31) U/L ALT (0-31) U/L Alkaline Phosphatase (39-117) U/L B-Natriuretic Peptide 153 H (<100) pg/mL Total Protein (6.5-8.0) g/dL Albumin (3.5-5.0) g/dL Urine Color Yellow Urine Appearance Turbid Urine pH 8.5 (5.0-9.0) Ur Specific [place] 1.015 (1.005-1.025) Urine Protein Negative (Neg-Trace) mg/dL Urine Glucose (UA) Negative (Negative) mg/dL Urine Ketones Negative (Negative) mg/dL Urine Blood Negative (Negative) Urine Nitrite Negative (Negative) Ur Leukocyte Esterase Small (1+) H (Negative) Urine RBC 0-2 (0-2) /HPF Urine WBC 6-10 H (0-5) /HPF Ur Squamous Epith Cells 3-5 (0-2) /HPF Urine Bacteria 1+ (None Seen) Hyaline Casts 0-2 (0-2) /LPF COVID-19 ([place]) (Negative) COVID-19 Clin Com Discharge Plan Discharge Clinical Impression: UTI (urinary tract infection), Sciatica Patient Disposition: Home, Self-Care Instructions: Sciatica (ED), Urinary Tract Infection in Older Adults (ED) Additional Instructions: Your blood work and imaging studies were reassuring today in the emergency department. Ceftin is an antibiotic please take as prescribed. Your back pain is likely musculoskeletal Flexeril is a muscle relaxer, take at night as it makes you drowsy, do not drive, drink alcohol, or operate machinery while taking it Naproxen as an anti-inflammatory / pain medication, take with food Lidoderm patches are numbing patches, apply to painful area In addition take Tylenol at home If symptoms persist or worsen, pain becomes unbearable, you developed urinary retention or incontinence, or weakness return to the ED Belkis an?lisis de nadine y estudios de im?genes fueron tranquilizadores hoy en el departamento de emergencias. Ceftin es un antibi?jermaine, t?estrella seg?n lo prescrito. Es probable que snyder dolor de espalda sea musculoesquel?jermaine Flexeril es un relajante muscular, t?chasity por la noche ya que te adormece, no conduzcas, bebas alcohol ni operes maquinaria mientras lo ashlie. Naproxeno neel medicamento antiinflamatorio/analg?sico, t?estrella con alimentos Los parches de Lidoderm son parches anest?sicos, se aplican en el ?charo dolorida Adem?s naye Tylenol en casa Si los s?ntomas persisten o empeoran, el dolor se vuelve insoportable, desarroll? retenci?n urinaria o incontinencia, o debilidad, regrese al servicio de urgencias. Prescriptions: New cefuroxime axetil 250 mg tablet 250 mg PO BID 7 Days Qty: 14 0RF acetaminophen [Tylenol Extra Strength] 500 mg tablet 500 mg PO Q6H PRN (Reason: fever or pain) Qty: 14 0RF lidocaine [Lidoderm] 5 % adhesive patch,medicated 1 patch topical DAILY MDD remove after 12 hours PRN (Reason: pain) Qty: 30 0RF Rx Instructions: leave on most painful area for up to 12 hrs naproxen 500 mg tablet 500 mg PO BID PRN (Reason: pain) 10 Days Qty: 20 0RF cyclobenzaprine 5 mg tablet 5 mg PO Q8H PRN (Reason: pain (scale score 7-10)) 5 Days Qty: 14 0RF No Action hydrocortisone [Anti-Itch (HC)] 1 % cream 1 appl topical BID PRN (Reason: skin irritation) 14 Days Qty: 28.35 1RF alprazolam [Xanax] 1 mg tablet 1 - 2 mg PO ONCE Qty: 2 0RF (DME) toilet seat elevator See Rx Instructions .Route .MEDSUPPLY Qty: 1 0RF Rx Instructions: As directed Trulicity 0.75 mg/0.5 mL pen injector 0.75 mg subcut QWEEK 30 Days Qty: 2 6RF FreeStyle Lite Strips Strip 1 strip miscellaneous TID 90 Days Qty: 300 11RF (DME) lancets [FreeStyle Lancets] 28 gauge misc See Rx Instructions .ROUTE .MEDSUPPLY Qty: 300 6RF Rx Instructions: 3 times aday Aquaphor Healing 41 % ointment 1 appl topical DAILY PRN (Reason: dry skin) 14 Days Qty: 20 0RF pen needle, diabetic [BD Ultra-Fine Aarti Pen Needle] 32 gauge x 5/32 needle 1 ea subcut DAILY Qty: 30 11RF metformin 500 mg tablet 1,000 mg PO BID Qty: 120 5RF alcohol swabs [Alcohol Pads] Pads, Medicated 1 pad topical .COMPLEX Qty: 200 6RF Rx Instructions: 1 pad topical five times a day; dicyclomine 20 mg tablet 20 mg PO TID 30 Days Qty: 90 1RF lidocaine 5 % adhesive patch,medicated 1 patch topical DAILY PRN (Reason: pain (scale score 7-10)) 15 Days Qty: 15 0RF Rx Instructions: leave on most painful area for up to 12 hrs hydrochlorothiazide 25 mg tablet 25 mg PO DAILY 90 Days Qty: 90 4RF triamcinolone acetonide 0.1 % cream 1 appl topical BID 10 Days Qty: 15 0RF tramadol 50 mg tablet 50 mg PO BID PRN (Reason: pain) Qty: 10 0RF insulin glargine [Lantus Solostar U-100 Insulin] 100 unit/mL (3 mL) insulin pen 15 unit subcut DAILY 30 Days Qty: 4.5 3RF diclofenac sodium 1 % gel 2 g topical QID 30 Days Qty: 100 4RF Rx Instructions: apply to single elbow, wrist or hand; for hand includes palm/fingers/back of hand levothyroxine [Synthroid] 175 mcg tablet 0 mcg PO omeprazole 20 mg capsule,delayed release(DR/EC) 20 mg PO QAM 90 Days Qty: 90 5RF escitalopram oxalate 10 mg tablet 10 mg PO DAILY gabapentin 300 mg capsule 300 mg PO BID hydroxyzine HCl 25 mg tablet 25 mg PO Q8H PRN (Reason: anxiety) mirabegron 25 mg tablet extended release 24 hr 25 mg PO DAILY clobetasol 0.05 % ointment 1 appl topical DAILY Rx Instructions: Use daily for 2 weeks, then every other day for 2 wks, then twice a week diphenhydramine HCl [Banophen] 25 mg capsule 25 mg PO BEDTIME PRN Referrals: Yael Alex MD [Primary Care Provider] - 3 days Print Language: Japanese
[2022-05-27] MEDS: Ketorolac Tromethamine 30 MG/ML VIAL IM (09:13)
[2022-05-27] MEDS: Lidocaine 4 % Patch ADH..PATCH 1 PATCH TRANSDERMA (09:13)
[2022-05-27] MEDS: Cyclobenzaprine HCl 10 MG TABLET PO (09:14)
[2022-05-27 10:16] VITALS: BP 169/65; PULSE 70; RESP 20; O2SAT 97
[2022-05-27 10:37] LABS: Appearance Urine Turbid; Color Urine Yellow; Glucose Urine UA Negative (Negative); Leukocyte Esterase Urine Small (1+) (Negative); Nitrite Urine Negative (Negative); PH 8.5 (5.0-9.0); Specific Gravity - Urine 1.015 (1.005-1.025); UMIC TRIGGER UACC YES; Urine Blood Negative (Negative); Urine Ketones Negative (Negative); Urine Protein Negative (Neg-Trace)
[2022-05-27 10:43] LABS: Bacteria Urine 1+ (None Seen); Hyaline Casts Urine 0-2 /LPF (0-2); RBC Urine 0-2 /HPF (0-2); UACC Culture Trigger YES
[2022-05-27 10:44] VITALS: BP 153/70; PULSE 74; RESP 14; TEMP 36.5; O2SAT 99
[2022-05-27 11:02] LABS: Alanine Aminotransferase 42 U/L (0-31); Albumin Level 3.7 g/dL (3.5-5.0); Alkaline Phosphatase 129 U/L (39-117); Aspartate Amino Transferase 81 U/L (5-31); Bilirubin Direct < 0.2 mg/dL (0.0-0.5); Bilirubin Total 0.4 mg/dL (0.0-1.0); Total Protein 7.6 g/dL (6.5-8.0)
[2022-05-27 11:03] LABS: B Type Natriuretic Peptide 153 pg/mL (<100)
[2022-05-27 11:55] LABS: B Type Natriuretic Peptide 145 pg/mL (<100)
== END 2022-05-27 12:06 | disposition home or self-care (01) ==
PROVIDERS: Physician Assistant; Emergency Provider Emergency Medicine Emergency Medical Services; PCP Internal Medicine
DX: N39.0 Urinary tract infection, site not specified (principal); M54.32 Sciatica, left side; M54.31 Sciatica, right side; R60.0 Localized edema; R06.02 Shortness of breath; Z20.822 Contact with and (suspected) exposure to COVID-19; Z79.899 Other long term (current) drug therapy
CPT/HCPCS: 36415; 71045; 80048; 80076; 81001; 83880; 85025; 87086; 87088; 87186; 87635; 93970; 96372; 99284; J1885

== ENCOUNTER → 2022-06-10 10:41 | Outpatient (BNVA) | payer OTHER, SELFPAY | PROVIDERS: PCP Internal Medicine; Visit Provider Orthopaedic Surgery | DX: Z98.890 Other specified postprocedural states (principal) | CPT/HCPCS: 99212 ==

== ENCOUNTER → 2022-07-02 09:17 | Outpatient (BNVA) | payer OTHER, SELFPAY | PROVIDERS: PCP Internal Medicine; Visit Provider Nurse Practitioner | DX: K59.04 Chronic idiopathic constipation (principal); Z90.49 Acquired absence of other specified parts of digestive tract | CPT/HCPCS: 99212 ==

== ENCOUNTER 2022-07-08 10:13 | Outpatient (REF) | payer OTHER, SELFPAY ==
--- NOTE | ~2022-07-08 | XR_ITS ---
EXAMINATION: XR HAND, LEFT CLINICAL INFORMATION: Pain in left fingers COMPARISON: None TECHNIQUE: PA, lateral, and oblique views of the left hand. FINDINGS: The bones and soft tissues are normal. No fracture. Alignment is anatomic. Joint spaces are maintained. No erosions or soft tissue calcifications. XR/XR hand LT min 3V IMPRESSION: Unremarkable left hand.
== END 2022-07-08 10:14 | disposition home or self-care (01) ==
LOC: HO.XRAY 10:13
PROVIDERS: PCP Internal Medicine; Visit Provider Internal Medicine
DX: M79.645 Pain in left finger(s) (principal)
CPT/HCPCS: 73130

== ENCOUNTER 2022-07-15 11:45 | Outpatient (REF) | payer OTHER, SELFPAY ==
[2022-07-15 12:44] LABS: Influenza A PCR NEGATIVE (Negative); Influenza B PCR NEGATIVE (Negative); Resp Syncy Virus RNA Qual PCR POSITIVE (Negative); SARS COV2 PCR INHOUSE NEGATIVE (Negative)
== END 2022-07-15 11:46 | disposition home or self-care (01) ==
LOC: HO.LNP 11:45
PROVIDERS: Visit Provider Internal Medicine
DX: Z20.822 Contact with and (suspected) exposure to COVID-19 (principal); R43.9 Unspecified disturbances of smell and taste
CPT/HCPCS: 0241U

== ENCOUNTER 2022-07-23 13:53 | Outpatient (REF) | payer OTHER, SELFPAY ==
[2022-07-23 14:43] LABS: Influenza A PCR NEGATIVE (Negative); Influenza B PCR NEGATIVE (Negative); Resp Syncy Virus RNA Qual PCR NEGATIVE (Negative); SARS COV2 PCR INHOUSE NEGATIVE (Negative)
== END 2022-07-23 13:54 | disposition home or self-care (01) ==
LOC: HO.LNP 13:53
PROVIDERS: Visit Provider Physician Assistant
DX: Z20.822 Contact with and (suspected) exposure to COVID-19 (principal); B34.9 Viral infection, unspecified
CPT/HCPCS: 0241U

== ENCOUNTER 2022-07-25 09:21 | Outpatient (REF) | payer OTHER, SELFPAY ==
[2022-07-25 11:03] LABS: Creatinine Urine 132.33 mg/dL; Microalbum/Creatinine Ratio Ur 6.8 ug/mg cr
[2022-07-25 11:18] LABS: Alanine Aminotransferase 33 U/L (0-31); Alkaline Phosphatase 120 U/L (39-117); Anion Gap 11 (12-20); Aspartate Amino Transferase 41 U/L (5-31); Bilirubin Total 0.7 mg/dL (0.0-1.0); Blood Urea Nitrogen 17 mg/dL (9-16); Calcium 9.7 mg/dL (8.4-10.2); Carbon Dioxide 29 mmol/L (22-29); Chloride 104 mmol/L (96-108); Cholesterol 118 mg/dL; Estimated Glomerular Filt Rate > 60; Glucose Fasting 130 mg/dL (60-99); HDL Cholesterol 45 mg/dL; LDL Cholesterol Calculated 59 mg/dl; Sodium 140 mmol/L (135-145); Thyroid Stimulating Hormone 1.15 uIU/mL (0.32-4.0); Total Protein 7.5 g/dL (6.5-8.0); Triglycerides 73 mg/dL; Vitamin D 25-OH Total 44.9 ng/mL (>30)
== END 2022-07-25 09:22 | disposition home or self-care (01) ==
LOC: HO.LAB 09:21
PROVIDERS: PCP Internal Medicine; Visit Provider Internal Medicine
DX: E55.9 Vitamin D deficiency, unspecified (principal); E03.9 Hypothyroidism, unspecified; E11.9 Type 2 diabetes mellitus without complications; E78.5 Hyperlipidemia, unspecified; Z79.4 Long term (current) use of insulin
CPT/HCPCS: 36415; 80053; 80061; 82043; 82306; 84443

== ENCOUNTER → 2022-07-31 09:32 | Outpatient (BNVA) | payer OTHER, SELFPAY | PROVIDERS: PCP Internal Medicine; Visit Provider Internal Medicine Endocrinology, Diabetes & Metabolism | DX: E11.9 Type 2 diabetes mellitus without complications (principal); Z79.4 Long term (current) use of insulin | CPT/HCPCS: 82947; 83036; 99212 ==

== ENCOUNTER → 2022-08-07 10:17 | Outpatient (BNVA) | payer OTHER, SELFPAY | PROVIDERS: PCP Internal Medicine; Visit Provider Orthopaedic Surgery | DX: M65.312 Trigger thumb, left thumb (principal) | CPT/HCPCS: 20550; 99202; J1100 ==

== ENCOUNTER 2022-08-27 11:00 | Outpatient (RCR) | payer OTHER, SELFPAY ==
[2022-07-08 11:13] VITALS: BP 187/78; PULSE 68
--- NOTE | 2022-07-08 12:04 | MHC.PT.EP ---
[facility] [place] Office [place] Office [place] Office [address] Killian Koch [address] [phone] F: [phone] F: [phone] F: [phone] F: [phone] Physical Therapy Plan of Care Date of Evaluation: Date of Surgery: 10/10/21 Diagnosis: S/p R RTC repair Assessment: Crystal is a 66 year old female who is referred to PT for s/o R RTC repair . She was here in PT earlier this year (post op) for about 14 visits. She was d/c as her improvements had plateaued and she was independent with her HEP. She has returned to PT due to presence of lack of ROM and pain. On PT examinations she presented with 3/10 pain at rest which goes up to 6/10 pain with over head movements and carrying weights, decreased shoulder ROM, decreased shoulder and scap strength, and altered posture. Due to these impairments she is needing increased assistance with ADLS. She would benefit from skilled PT to address the aforementioned impairments and improve tolerance to functional activities. Frequency and Duration: The patient will be seen 2/week for 6 weeks Short Term Goals: 1. Pt will have 50% decrease in pain at rest and demonstrate good posture when sitting in 2 weeks. 2. Pt will be able to move her shoulder through all planes of motion with a pain no more than 2/10 which will enable her to comb her hair in 3 weeks. Network Operations Lead Goals: 1. Pt will demonstrate an increase in muscle strength by 1 grade which will enable her to dress her lower body in 5 weeks. 2. Pt will be independent with HEP for symptom management and maintenance following d/c in 6 weeks. Treatment Plan: Modalities to reduce pain, spasms and effusion. Manual therapy to restore motion and function. Therapeutic exercise to improve strength and flexibility. Neuromuscular re-education for posture and balance. Therapeutic activities to return to functional activities of daily living. Electronically signed by: Eunice Batista PT DPT Please sign and return to therapist. Thank you for your referral.
--- NOTE | 2022-08-29 11:42 | MHC.PT.DC ---
[facility] [place] Office [place] Office [place] Office [address] Killian Koch [address] [phone] F: [phone] F: [phone] F: [phone] F: [phone] Physical Therapy Discharge Report Diagnosis: S/p R RTC repair Date of Surgery: 10/10/21 Date of Evaluation: 07/08/22 Date of Discharge: 08/29/22 Treatments to Date: 5 Cancellations to Date: 6 No Shows to Date: 2 Discharge Status: Visit Non-compliance Discharge Summary: Crystal has attended only 5 PT visits in 2 months. She has had 6 cancellations and 2 no shows. She is therefore being d/c from PT for non compliance. Electronically signed by: Eunice Batista PT DPT Please sign and return to therapist. Thank you for your referral.
== END 2022-08-29 11:42 | disposition home or self-care (01) ==
LOC: HO.PT 11:00
PROVIDERS: PCP Internal Medicine; Visit Provider Orthopaedic Surgery
DX: Z98.890 Other specified postprocedural states (principal)
CPT/HCPCS: 97110; 97112; 97140; 97161

== ENCOUNTER → 2022-08-28 11:10 | Outpatient (BNVA) | payer OTHER, SELFPAY | PROVIDERS: PCP Internal Medicine; Visit Provider Nurse Practitioner | DX: K59.04 Chronic idiopathic constipation (principal) | CPT/HCPCS: 99212 ==

== ENCOUNTER 2022-11-12 08:22 | Emergency (ER) | payer OTHER, SELFPAY ==
[2022-11-12 08:35] VITALS: BP 163/61; PULSE 73; RESP 16; TEMP 36.6; O2SAT 97; BMI 34.3
--- NOTE | 2022-11-12 08:41 | ED.BACK ---
HPI - Back Pain/Injury General Chief Complaint: Extremity Problem Stated Complaint: Back & Right Arm Pain No Injury Time Seen by Provider: 11/12/22 08:26 Source: patient, RN notes reviewed and old records reviewed Mode of arrival: ambulatory History of Present Illness HPI Narrative: 66-year-old female with a past medical history of hypothyroid, anxiety, HTN, depression, diabetes, HLD, GERD, thyroid CA s/p thyroidectomy, presenting to the ED complaining of low back pain radiating to right shoulder/arm and down RLE x2 weeks. Admits to similar symptoms in the past which she received cortisone injections for with some relief. Denies recent injury/trauma or fall, numbness/tingling, weakness, headache, CP/SOB, incontinence retention, abdominal pain, nausea/vomiting MD elicited complaint: back pain Related Data Home Medications Medication Instructions Recorded Confirmed escitalopram oxalate 10 mg tablet 10 mg PO DAILY 06/26/20 07/08/22 gabapentin 300 mg capsule 300 mg PO BID 12/15/20 07/08/22 hydroxyzine HCl 25 mg tablet 25 mg PO Q8H PRN anxiety 12/15/20 07/08/22 mirabegron 25 mg tablet,extended 25 mg PO DAILY 12/15/20 07/08/22 release 24 hr clobetasol 0.05 % topical ointment 1 appl topical DAILY 04/02/22 07/08/22 diphenhydramine HCl 25 mg capsule 25 mg PO BEDTIME PRN 04/02/22 07/08/22 (Banophen) azelastine 137 mcg (0.1 %) nasal 1 spray intranasal BID 07/02/22 07/08/22 spray aerosol betamethasone valerate 0.1 % 1 appl topical BID 07/02/22 07/08/22 topical cream cetirizine 10 mg tablet 10 mg PO DAILY 07/02/22 07/08/22 docusate sodium 100 mg capsule 100 mg PO DAILY 07/02/22 07/08/22 ketotifen fumarate 0.025 % (0.035 0 drp ophthalmic (eye) 07/02/22 07/08/22 %) eye drops levothyroxine 175 mcg tablet 175 mcg PO 07/31/22 (Synthroid) Previous Rx's Medication Instructions Recorded triamcinolone acetonide 0.1 % 1 appl topical BID rash 10 days 08/21/20 topical cream #15 grams hydrocortisone 1 % topical cream 1 appl topical BID PRN skin 09/01/20 (Anti-Itch (hydrocortisone)) irritation 14 days #28.35 grams alprazolam 1 mg tablet (Xanax) 1 - 2 mg PO ONCE To be taken 1 03/20/21 hour before MRI #2 tabs toilet seat elevator #1 ea 04/10/21 lancets 28 gauge (FreeStyle #300 ea 10/16/21 Lancets) white petrolatum 41 % topical 1 appl topical DAILY PRN dry skin 10/31/21 ointment (Aquaphor Healing) 2 weeks #20 grams pen needle, diabetic 32 gauge x 1 ea subcut DAILY #30 ea 11/02/21 (BD Ultra-Fine Aarti Pen Needle) alcohol swabs (Alcohol Pads) 1 pad topical .COMPLEX #200 pad 01/14/22 hydrochlorothiazide 25 mg tablet 25 mg PO DAILY 90 days #90 tabs 05/23/22 omeprazole 20 mg capsule,delayed 20 mg PO QAM 90 days #90 caps 05/23/22 release acetaminophen 500 mg tablet 500 mg PO Q6H PRN fever or pain 05/27/22 (Tylenol Extra Strength) #14 tabs cyclobenzaprine 5 mg tablet 5 mg PO Q8H PRN pain (scale score 05/27/22 7-10) 5 days #14 tabs lidocaine 5 % topical patch 1 patch topical DAILY PRN pain #30 05/27/22 (Lidoderm) ea naproxen 500 mg tablet 500 mg PO BID PRN pain 10 days #20 05/27/22 tabs blood sugar diagnostic (FreeStyle 1 strip miscellaneous TID 90 days 05/30/22 Lite Strips) #300 strips insulin glargine 100 unit/mL (3 15 unit (0.15 mL) subcut DAILY 30 06/07/22 mL) subcutaneous pen ( #4.5 mL Solostar U-100 Insulin) blood-glucose meter (FreeStyle #1 ea 06/25/22 Lite Meter kit) plecanatide 3 mg tablet (Trulance) 3 mg PO DAILY #30 tabs 07/02/22 lidocaine 5 % topical ointment 1 appl topical BEDTIME PRN pain 30 07/08/22 days #30 grams guaifenesin 600 mg tablet, 600 mg PO Q12H PRN congestion 10 07/11/22 extended release 12 hr (Mucinex) days #20 tabs humidifiers #1 ea 07/12/22 albuterol sulfate 90 mcg/actuation 2 puff inhalation Q6H PRN 07/23/22 aerosol inhaler shortness of breath or wheezing #6.7 grams dulaglutide 1.5 mg/0.5 mL 1.5 mg (0.5 mL) subcut QWEEK #2 mL 07/31/22 subcutaneous pen injector (Trulicity) metformin 500 mg tablet 1,000 mg PO BID #120 tabs 08/20/22 losartan 25 mg tablet 25 mg PO DAILY 90 days #90 tabs 08/25/22 diclofenac sodium 1 % topical gel 2 g topical QID 1 month #100 grams 09/03/22 atorvastatin 20 mg tablet 20 mg PO DAILY 90 days #90 tabs 09/29/22 tramadol 50 mg tablet 50 mg PO BID PRN pain #10 tabs 10/25/22 dicyclomine 20 mg tablet 20 mg PO TID 30 days #90 tabs 10/30/22 Allergies Allergy/AdvReac Type Severity Reaction Status Date / Time enalapril [ENALAPRIL] Allergy Intermediate Cough Verified 11/12/22 08:52 cephalexin [From KEFLEX] Allergy Mild rash Verified 11/12/22 08:52 ciprofloxacin [CIPROFLOXACIN] Allergy Mild HIVES,RASH Verified 11/12/22 08:52 levothyroxine sodium Allergy Mild RASH WITH Verified 11/12/22 08:52 [LEVOTHYROXINE SODIUM] GENERIC MED nitrofurantoin Allergy Mild RASH Verified 11/12/22 08:52 [NITROFURANTOIN] Penicillins [PENICILLINS] Allergy Mild RASH Verified 11/12/22 08:52 sulfamethoxazole Allergy Mild rash Verified 11/12/22 08:52 [From BACTRIM] trimethoprim [From BACTRIM] Allergy Mild rash Verified 11/12/22 08:52 ALL GENERIC MEDS Allergy Mild Rash Uncoded 08/07/22 11:26 SHRIMP Allergy Unknown Unknown Uncoded 08/07/22 11:26 Review of Systems Review of Systems: Constitutional: No Fever, No Chills ENT/Mouth: No Ear Pain, No Nasal Congestion, No sore throat, No Rhinorrhea, No Swallowing Difficulty Cardiovascular: No Chest Pain, No SOB Respiratory: No Cough, No Sputum, No Wheezing Gastrointestinal: No Nausea, No Vomiting, No Diarrhea, No Constipation, No Abdominal pain Genitourinary: No Dysuria, No Urinary Frequency, No Hematuria, No Urinary Incontinence/retention, No Flank Pain Musculoskeletal: + joint pain, + Myalgias, No Joint Swelling Skin: No Skin Lesions, No rash Neuro: No Weakness, No Numbness, No Paresthesias Yes all other systems are reviewed and are negative Constitutional: Constitutional: Reports as per [facility] Past Medical History Attestation statement: The following information was validated with the patient. Medical History Acquired hypothyroidism Anxiety Benign essential hypertension Depression Diabetes type 2, uncontrolled Dyslipidemia GERD without esophagitis MCC (current) use of insulin Lower back pain Lumbar spondylosis Mild recurrent major depression Obesity (BMI 30-39.9) Rash Right arm pain Sacroiliac joint disease Thyroid cancer Surgical History H/O thyroidectomy History of bladder surgery History of cholecystectomy History of esophagogastroduodenoscopy (EGD) History of liver biopsy Hx of colonoscopy Hx of shoulder surgery Family History Family History Father No problems noted. Mother Diabetes Sister Lung cancer Brother H/O heart surgery Diabetes Son Epilepsy Social History Social History Household Members: Significant Other Housing: Apartment Alcohol intake: never Patient Tobacco Use Status: Never used Tobacco Smoked in Last 30 Days: No e-Cigarette/Vaping Use: Never Used Second Hand Smoke Exposure: No Use of substances other than those prescribed or required for medical reasons: No Advance Directives: No service: No Current occupational status: disabled Gender identity: Female Cognitive needs: Yes Hearing needs: No Vision needs: No Physical Exam Vital Signs: Vital Signs: Last Vital Signs Temp 97.9 F 11/12/22 08:35 Pulse 62 11/12/22 10:00 Resp 16 11/12/22 10:00 BP 147/64 H 11/12/22 10:00 Pulse Ox 95 11/12/22 10:00 O2 Del Method Room Air 11/12/22 10:00 BMI result Body Mass Index 34.3 Const: General: cooperative, healthy appearing and no acute distress Orientation/consciousness: patient oriented x3 Limitations: no limitations HEENT: Head: Yes normal to inspection and Yes atraumatic Ears: hearing grossly normal bilaterally General nose exam: Normal external nose present Face and sinus: Yes normal facial exam Eyes: General: appearance normal, both eyes and all related structures EOM: EOMs intact bilaterally Neck: Neck: Yes normal visual inspection and Yes no meningeal signs Chest: Chest palpation & inspection: normal inspection of the chest and no crepitus Resp: Effort & Inspection: normal respiratory effort and no respiratory distress Auscultation: clear to auscultation bilaterally Cardio: Rate: regular rate Heart sounds: S1 normal heart sound present and S2 normal heart sound present Peripheral pulses: Peripheral pulses 2+ throughout GI: Inspection: Yes normal to inspection Palpation (GI): Soft to palpation, nontender, no guarding and not rigid : General: Yes no CVA tenderness Back/Spine/Pelvis: Other: No midline cervical/thoracic/lumbar spinous tenderness/step-off or deformity. + bilateral paraspinal/MSK thoracic tenderness to palpation. Back: no CVA tenderness Skin: Rashes: no rashes Wounds: no wounds Neuro: Other: Strength intact throughout. No saddle anesthesia. Sensation intact to light touch. Neurovascular intact distally General: patient oriented x3, gait normal, tone normal, moves all extremities, no meningeal signs, no focal motor deficits and CN's II-XI intact bilaterally Gait exam (Neuro): Normal gait present Motor exam (neuro): 5/5 motor strength present throughout Extrem: Other: Right shoulder without noted deformity. Diffusely tender. Slightly limited ROM due to pain. NV distally. No erythema/warmth General: Yes normal to inspection Medications Administered Discontinued Medications Generic Name Dose Route Start Last Admin Trade Name Freq PRN Reason Stop Dose Admin Ketorolac Tromethamine 30 mg 11/12/22 08:42 11/12/22 09:09 Ketorolac Tromethamine 30 Mg/Ml Vial IM 11/12/22 08:43 30 mg ONCE ONE Administration Medical Decision Making Medical Decision Making MDM Narrative: 66-year-old female with a past medical history of hypothyroid, anxiety, HTN, depression, diabetes, HLD, GERD, thyroid CA s/p thyroidectomy, presenting to the ED complaining of low back pain radiating to right shoulder/arm and down RLE x2 weeks. On exam vital signs stable, NAD, nontoxic appearing, no midline spinous tenderness throughout, no red flag symptoms, ambulating with steady gait. Diffuse joint tenderness elicited without erythema/warmth. Concern for MSK pain/arthritic flare vs sciatica. Rule out atypical ACS. Low suspicion for PE, pneumonia, no evidence of cellulitis/infection, low suspicion for compartment syndrome/septic joint/arthritis Plan: EKG, IM Toradol, PCP follow-up Please refer to course for remaining clinical decision making, interpretation of labs/imaging results, and discussions with consultants and/or family members. Differential Diagnosis Differential Diagnoses: The differential diagnosis associated with the presentation includes As above Admission/Observation Consideration of admission/observation: Escalation of care including admission/observation considered Lab Data MDM Lab Attestation statement: I reviewed the patient's lab results. Independent Interpretation I performed an independent interpretation of an: EKG (EKG normal sinus rhythm at a rate of 70. [place] interval 174. No significant change when compared to priors. Artifact present. No STEMI ) Radiology Impression Discussion of test interpretation with radiology: I have reviewed the radiologist's reading. External Record Review External record reviewed: Inpatient record, Office record, Outpatient record, Prior outpatient labs, Prior outpatient radiology, Primary care record and Outside ED record Prescription Management I considered prescription management with: Pain Medication Discharge Plan Discharge Clinical Impression: Back pain Patient Disposition: Home, Self-Care Instructions: Back Pain (ED) Additional Instructions: Your pain is likely musculoskeletal Flexeril is a muscle relaxer, take at night as it makes you drowsy, do not drive, drink alcohol, or operate machinery while taking it Naproxen as an anti-inflammatory / pain medication, take with food Lidoderm patches are numbing patches, apply to painful area In addition take Tylenol at home If symptoms persist or worsen, pain becomes unbearable, you developed urinary retention or incontinence, or weakness return to the ED Es probable que snyder dolor sea musculoesquel?jermaine Flexeril es un relajante muscular, t?chasity por la noche ya que te adormece, no conduzcas, bebas alcohol ni operes maquinaria mientras lo ashlie. Naproxeno neel medicamento antiinflamatorio/analg?sico, t?estrella con alimentos Los parches de Lidoderm son parches anest?sicos, se aplican en el ?charo dolorida Adem?s naye Tylenol en casa Si los s?ntomas persisten o empeoran, el dolor se vuelve insoportable, desarroll? retenci?n urinaria o incontinencia, o debilidad, regrese al servicio de urgencias. Prescriptions: No Action hydrocortisone [Anti-Itch (HC)] 1 % cream 1 appl topical BID PRN (Reason: skin irritation) 14 Days Qty: 28.35 1RF alprazolam [Xanax] 1 mg tablet 1 - 2 mg PO ONCE Qty: 2 0RF (DME) toilet seat elevator See Rx Instructions .Route .MEDSUPPLY Qty: 1 0RF Rx Instructions: As directed (DME) lancets [FreeStyle Lancets] 28 gauge misc See Rx Instructions .ROUTE .MEDSUPPLY Qty: 300 6RF Rx Instructions: 3 times aday Aquaphor Healing 41 % ointment 1 appl topical DAILY PRN (Reason: dry skin) 14 Days Qty: 20 0RF pen needle, diabetic [BD Ultra-Fine Aarti Pen Needle] 32 gauge x 5/32 needle 1 ea subcut DAILY Qty: 30 11RF alcohol swabs [Alcohol Pads] Pads, Medicated 1 pad topical .COMPLEX Qty: 200 6RF Rx Instructions: 1 pad topical five times a day; hydrochlorothiazide 25 mg tablet 25 mg PO DAILY 90 Days Qty: 90 4RF FreeStyle Lite Strips Strip 1 strip miscellaneous TID 90 Days Qty: 300 11RF insulin glargine [Lantus Solostar U-100 Insulin] 100 unit/mL (3 mL) insulin pen 15 unit subcut DAILY 30 Days Qty: 4.5 3RF (DME) blood-glucose meter [FreeStyle Lite Meter] Kit See Rx Instructions .Route Qty: 1 0RF Rx Instructions: As directed guaifenesin [Mucinex] 600 mg tablet extended release 12hr 600 mg PO Q12H PRN (Reason: congestion) 10 Days Qty: 20 0RF (DME) humidifiers Misc See Rx Instructions .Route Qty: 1 0RF Rx Instructions: As directed metformin 500 mg tablet 1,000 mg PO BID Qty: 120 4RF losartan 25 mg tablet 25 mg PO DAILY 90 Days Qty: 90 0RF diclofenac sodium 1 % gel 2 g topical QID 30 Days Qty: 100 4RF Rx Instructions: apply to single elbow, wrist or hand; for hand includes palm/fingers/back of hand atorvastatin 20 mg tablet 20 mg PO DAILY 90 Days Qty: 90 2RF tramadol 50 mg tablet 50 mg PO BID PRN (Reason: pain) Qty: 10 0RF dicyclomine 20 mg tablet 20 mg PO TID 30 Days Qty: 90 1RF acetaminophen [Tylenol Extra Strength] 500 mg tablet 500 mg PO Q6H PRN (Reason: fever or pain) Qty: 14 0RF lidocaine [Lidoderm] 5 % adhesive patch,medicated 1 patch topical DAILY MDD remove after 12 hours PRN (Reason: pain) Qty: 30 0RF Rx Instructions: leave on most painful area for up to 12 hrs naproxen 500 mg tablet 500 mg PO BID PRN (Reason: pain) 10 Days Qty: 20 0RF cyclobenzaprine 5 mg tablet 5 mg PO Q8H PRN (Reason: pain (scale score 7-10)) 5 Days Qty: 14 0RF triamcinolone acetonide 0.1 % cream 1 appl topical BID 10 Days Qty: 15 0RF lidocaine 5 % ointment 1 appl topical BEDTIME PRN (Reason: pain) 30 Days Qty: 30 0RF omeprazole 20 mg capsule,delayed release(DR/EC) 20 mg PO QAM 90 Days Qty: 90 5RF levothyroxine [Synthroid] 175 mcg tablet 175 mcg PO albuterol sulfate 90 mcg/actuation HFA aerosol inhaler 2 puff inhalation Q6H PRN (Reason: shortness of breath or wheezing) Qty: 6.7 0RF escitalopram oxalate 10 mg tablet 10 mg PO DAILY gabapentin 300 mg capsule 300 mg PO BID hydroxyzine HCl 25 mg tablet 25 mg PO Q8H PRN (Reason: anxiety) mirabegron 25 mg tablet extended release 24 hr 25 mg PO DAILY Trulicity 1.5 mg/0.5 mL pen injector 1.5 mg subcut QWEEK Qty: 2 5RF clobetasol 0.05 % ointment 1 appl topical DAILY Rx Instructions: Use daily for 2 weeks, then every other day for 2 wks, then twice a week diphenhydramine HCl [Banophen] 25 mg capsule 25 mg PO BEDTIME PRN docusate sodium 100 mg capsule 100 mg PO DAILY cetirizine 10 mg tablet 10 mg PO DAILY azelastine 137 mcg (0.1 %) aerosol,spray 1 spray intranasal BID betamethasone valerate 0.1 % cream 1 appl topical BID ketotifen fumarate 0.025 % (0.035 %) drops 0 drp ophthalmic (eye) Trulance 3 mg tablet 3 mg PO DAILY Qty: 30 6RF Referrals: Yael Alex MD [Primary Care Provider] - 5 days
--- NOTE | 2022-11-12 08:42 | ECG_ITS ---
Test Reason : sob/back pain Blood Pressure : / mmHG Vent. Rate : 070 BPM Atrial Rate : 070 BPM P-R Int : 174 ms QRS Dur : 092 ms QT Int : 392 ms P-R-T Axes : 010 -02 024 degrees QTc Int : 423 ms Abnormal EKG Normal sinus rhythm Minimal voltage criteria for LVH, may be normal variant ( R in aVL ) Borderline ECG When compared with ECG of 06-MAY-2022 21:42, No significant change was found Referred By: Kaylyn Rowley Electronically Signed By:GURU MCHUGH
[2022-11-12 08:56] VITALS: RESP 16
--- NOTE | 2022-11-12 08:59 | PC.NURSE ---
Pt lying in stretcher, airway open and patent, no obvious signs of distress, no difficulty breathing. Skin color normal for ethnicity, warm, and dry. A&ox person, place, time of year. Lung sounds clr bilaterally all tavarez. Heart sounds regular. Abdomen soft, non-tender, bowel sounds present all tavarez. No edema noted. Pt reporting right sided arm pain that shoots up right arm, down back, and also down right leg. Pt reports that she had surgery on right shoulder around Livia time due to a fall. Pt also reports that she fell again around the same time which resulted in the right leg pain. Pt reports that she gets a yearly cortisone shot, but isn't due till November. Areas unremarkable.
[2022-11-12] MEDS: Ketorolac Tromethamine 30 MG/ML VIAL IM (09:09)
[2022-11-12 10:00] VITALS: BP 147/64; PULSE 62; RESP 16; O2SAT 95
[2022-11-12 10:28] VITALS: BP 165/67; PULSE 57; RESP 16
== END 2022-11-12 10:29 | disposition home or self-care (01) ==
PROVIDERS: Emergency Provider Emergency Medicine; PCP Internal Medicine
DX: M54.50 Low back pain, unspecified (principal); E11.9 Type 2 diabetes mellitus without complications; I10 Essential (primary) hypertension; E78.5 Hyperlipidemia, unspecified; Z79.4 Long term (current) use of insulin; Z79.899 Other long term (current) drug therapy; Z79.02 Long term (current) use of antithrombotics/antiplatelets
CPT/HCPCS: 93005; 96372; 99284; 99285; J1885

== ENCOUNTER → 2022-11-15 12:40 | Outpatient (BNVA) | payer OTHER, SELFPAY | PROVIDERS: PCP Internal Medicine; Visit Provider Nurse Practitioner | DX: K59.04 Chronic idiopathic constipation (principal); K21.9 Gastro-esophageal reflux disease without esophagitis; M47.816 Spondylosis without myelopathy or radiculopathy, lumbar region; Z12.11 Encounter for screening for malignant neoplasm of colon | CPT/HCPCS: 99212 ==

== ENCOUNTER → 2022-11-26 10:25 | Outpatient (BNVA) | payer OTHER, SELFPAY | PROVIDERS: PCP Internal Medicine; Visit Provider Internal Medicine Endocrinology, Diabetes & Metabolism | DX: E11.65 Type 2 diabetes mellitus with hyperglycemia (principal); I10 Essential (primary) hypertension; E89.0 Postprocedural hypothyroidism; E78.5 Hyperlipidemia, unspecified; K21.9 Gastro-esophageal reflux disease without esophagitis; Z85.850 Personal history of malignant neoplasm of thyroid; Z79.4 Long term (current) use of insulin | CPT/HCPCS: 82947; 83036; 99212 ==

== ENCOUNTER → 2022-12-13 10:01 | Outpatient (BNVA) | payer OTHER, SELFPAY | PROVIDERS: PCP Internal Medicine; Visit Provider Registered Nurse Emergency | DX: M47.816 Spondylosis without myelopathy or radiculopathy, lumbar region (principal) | CPT/HCPCS: 99202 ==

== ENCOUNTER → 2022-12-27 11:08 | Outpatient (BNVA) | payer OTHER, SELFPAY | PROVIDERS: PCP Internal Medicine; Visit Provider Nurse Practitioner | DX: K59.04 Chronic idiopathic constipation (principal); K21.9 Gastro-esophageal reflux disease without esophagitis; R79.89 Other specified abnormal findings of blood chemistry | CPT/HCPCS: 99212 ==

== ENCOUNTER 2023-01-07 09:16 | Outpatient (REF) | payer OTHER, SELFPAY ==
[2023-01-07 11:41] LABS: Alanine Aminotransferase 30 U/L (0-31); Alkaline Phosphatase 108 U/L (39-117); Anion Gap 13 (12-20); Aspartate Amino Transferase 34 U/L (5-31); Bilirubin Total 0.8 mg/dL (0.0-1.0); Blood Urea Nitrogen 20 mg/dL (9-16); Calcium 9.8 mg/dL (8.4-10.2); Carbon Dioxide 29 mmol/L (22-29); Chloride 102 mmol/L (96-108); Cholesterol 132 mg/dL; Estimated Glomerular Filt Rate > 60; Glucose Fasting 160 mg/dL (60-99); HDL Cholesterol 45 mg/dL; LDL Cholesterol Calculated 72 mg/dl; Potassium 3.5 mmol/L (3.3-5.1); Sodium 140 mmol/L (135-145); Total Protein 7.9 g/dL (6.5-8.0); Triglycerides 76 mg/dL
[2023-01-07 11:45] LABS: Thyroid Stimulating Hormone 1.33 uIU/mL (0.32-4.0); Vitamin D 25-OH Total 49.6 ng/mL (>30)
[2023-01-07 12:05] LABS: Microalbum/Creatinine Ratio Ur 9.1 ug/mg cr
== END 2023-01-07 09:17 | disposition home or self-care (01) ==
LOC: HO.LAB 09:16
PROVIDERS: PCP Internal Medicine; Visit Provider Internal Medicine
DX: E78.5 Hyperlipidemia, unspecified (principal); E11.9 Type 2 diabetes mellitus without complications; E55.9 Vitamin D deficiency, unspecified; C73 Malignant neoplasm of thyroid gland; Z79.4 Long term (current) use of insulin
CPT/HCPCS: 36415; 80053; 80061; 82043; 82306; 84443

== ENCOUNTER 2023-01-21 10:33 | Outpatient (RCR) | payer OTHER, SELFPAY ==
--- NOTE | 2023-01-21 13:48 | MHC.PT.EP ---
[facility] [place] Office [place] Office [place] Office [address] Killian Koch [address] [phone] F: [phone] F: [phone] F: [phone] F: [phone] Physical Therapy Plan of Care Date of Evaluation: Date of Surgery: N/A Diagnosis: Spondylosis without myelopathy or radiculopathy, lumbar region Assessment: Pt is a pleasant 67yo F who presents to PT with chronic low back pain. She reports she previously had radicular symptoms but that has not occurred in ~3 months. She presents to PT with current impairments in pain, decreased lumbar ROM, decreased muscle length, decrease core stabilization, decreased LE strength, impaired posture and impaired gait. She is limited functionally by prolonged sitting, walking, stair navigation, bending, and sleeping. She would benefit from skilled PT 2x/week for 4 weeks to maximize strength and management of symptoms and will be reassessed at that time. Frequency and Duration: The patient will be seen 2x/week for 4 weeks Short Term Goals: Pt will be I with HEP to promote self management of symptoms Pt will demonstrate improvements in postural awareness Labor Relations Representative Goals: Pt will tolerate sitting > 30 min with improved posture with pain equal or < 3/10 Pt will improve B hip strength to at least 4/5 B to assist with walking and stair navigation Treatment Plan: Modalities to reduce pain, spasms and effusion. Manual therapy to restore motion and function. Therapeutic exercise to improve strength and flexibility. Neuromuscular re-education for posture and balance. Therapeutic activities to return to functional activities of daily living. Electronically signed by: Yvette Hollins, PT, DPT Please sign and return to therapist. Thank you for your referral.
--- NOTE | 2023-01-30 12:18 | MHC.PT.DC ---
[facility] [place] Office [place] Office [place] Office [address] Killian Koch [address] [phone] F: [phone] F: [phone] F: [phone] F: [phone] Physical Therapy Discharge Report Diagnosis: Spondylosis without myelopathy or radiculopathy, lumbar region Date of Surgery: N/A Date of Evaluation: 01/21/23 Date of Discharge: 01/30/23 Treatments to Date: 1 Cancellations to Date: No Shows to Date: Discharge Status: Patient Elected to Stop Discharge Summary: Pt was seen for initial PT evaluation on 01/21/23. She called requesting to self D/C from PT. Pt is being D/C from skilled PT at this time per her request. Pt current level of function unknown at this time. Electronically signed by: Yvette Hollins, PT, DPT Please sign and return to therapist. Thank you for your referral.
== END 2023-01-30 12:18 | disposition home or self-care (01) ==
LOC: HO.PT 10:33
PROVIDERS: PCP Internal Medicine; Visit Provider Registered Nurse Emergency
DX: M47.816 Spondylosis without myelopathy or radiculopathy, lumbar region (principal)
CPT/HCPCS: 97162

== ENCOUNTER 2023-02-11 06:09 | Outpatient (REF) | payer OTHER, SELFPAY ==
--- NOTE | ~2023-02-11 | FL_ITS ---
EXAMINATION: XR FLUOROSCOPY WITH IMAGES CLINICAL INFORMATION: Spondylosis without myelopathy or radiculopathy, lumbar region. Bilateral lumbar injections. COMPARISON: None available. TECHNIQUE: Fluoroscopy Supervised By: Dr. Darío Mckenzie. Fluoroscopy Time: 0.5 minutes. Cumulative Dose: 10.1 mGy. DAP: 0.177 Gycm2. Images: 6. FINDINGS: Mid and the needle positioned adjacent to the L5, L4, L3 pedicles with contrast opacifying the soft tissues. Visualized bones are grossly unremarkable. FL/FL guidance in treatment room IMPRESSION: Fluoroscopy was provided to referring physician for pain management.
== END 2023-02-11 06:10 | disposition home or self-care (01) ==
LOC: CF 06:09
PROVIDERS: Visit Provider Anesthesiology
DX: M47.816 Spondylosis without myelopathy or radiculopathy, lumbar region (principal)
CPT/HCPCS: 64493; 64494

== ENCOUNTER 2023-02-11 11:14 | Outpatient (AMB) | payer OTHER, SELFPAY ==
--- NOTE | 2023-02-11 11:24 | MHC.OFFVIS ---
Intake Vital Signs 02/11/23 11:30 02/11/23 13:50 Height 5 ft 4 in 5 ft 4 in Weight 230 lb 230 lb BMI 39.5 39.5 BP 136/62 140/70 H Blood Pressure Location Rt brachial Rt brachial Position Sitting Sitting Respiration 16 14 Pulse 97 76 Pulse Source Pulse Oximeter Pulse Oximeter Pulse Oximetry (%) 97 100 Oxygen Delivery Method Room Air Room Air Comment Pre-op Post-op Intake Visit Reasons: BILATERAL DIAGNOSTIC L3, L4, DRL5 MBB Allergies enalapril [ENALAPRIL] Allergy (Intermediate, Verified 02/11/23 11:24) Cough cephalexin [From KEFLEX] Allergy (Mild, Verified 02/11/23 11:24) rash ciprofloxacin [CIPROFLOXACIN] Allergy (Mild, Verified 02/11/23 11:24) HIVES,RASH levothyroxine sodium [LEVOTHYROXINE SODIUM] Allergy (Mild, Verified 02/11/23 11:24) RASH WITH GENERIC MED nitrofurantoin [NITROFURANTOIN] Allergy (Mild, Verified 02/11/23 11:24) RASH Penicillins [PENICILLINS] Allergy (Mild, Verified 02/11/23 11:24) RASH sulfamethoxazole [From BACTRIM] Allergy (Mild, Verified 02/11/23 11:24) rash trimethoprim [From BACTRIM] Allergy (Mild, Verified 02/11/23 11:24) rash dulaglutide [From Trulicity] Adverse Reaction (Unknown, Verified 02/11/23 11:24) Rash ALL GENERIC MEDS Allergy (Mild, Uncoded 12/31/22 13:21) Rash SHRIMP Allergy (Unknown, Uncoded 12/31/22 13:21) Unknown [facility] Medical History Acquired hypothyroidism Anxiety Benign essential hypertension Constipation Depression Diabetes type 2, uncontrolled Dyslipidemia GERD without esophagitis 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 Mother Diabetes Sister Lung cancer Brother H/O heart surgery Diabetes Son Epilepsy Social History Household Members: Significant Other Housing: Apartment Alcohol intake: never Patient Tobacco Use Status: Never used Tobacco e-Cigarette/Vaping Use: Never Used Second Hand Smoke Exposure: No service: No Current occupational status: disabled Gender identity: Female Cognitive needs: Yes Hearing needs: No Vision needs: No Female Reproductive History Menstrual Age of Menarche: 13 Physical Exam Vital Signs: Last Vital Signs Pulse 76 02/11/23 13:50 Resp 14 02/11/23 13:50 BP 140/70 H 02/11/23 13:50 Pulse Ox 100 02/11/23 13:50 Oxygen Delivery Method Room Air 02/11/23 13:50 BMI result Body Mass Index 39.5 Results Reviewed Results Reviewed: 02/11/23 12:17 Lidocaine HCl 2 % MPF [Xylocaine 2 % MPF] 5 ml .R[facility]TE .[facility] Assessment & Plan Assessment & Plan (1) Facet arthritis of lumbar region: Code(s): M47.816 - Spondylosis without myelopathy or radiculopathy, lumbar region (2) Lumbar spondylosis: Code(s): M47.816 - Spondylosis without myelopathy or radiculopathy, lumbar region Plan Diagnostic medial branch block L3,L4 dorsal ramus L5 bilateral.? ? ?Informed consent was explained to the patient. All questions were explained and? answered.? The patient was taken inside the operating room where she was positioned prone on the operating table. Time-out was performed delineating correct site, side, the nature of the procedure, patient's allergy, . All operating room staff was participating in OR time-out procedure. ? ? The lower back was prepped with ChloraPrep and draped with sterile towels.? C-arm was brought over the operating field and sq picture of L4-, L5 vertebra and S1 AREA were delineated on the screen.? Point of interest were delineated as confluence of superior articular process of L4 and L5 vertebra bilaterally with corresponding transverse processes as well as confluence of the sacral alae bilaterally with superior articular process of S1.? The projection of the point of interest to the skin were injected with the small amount of local anesthetic lidocaine 2% 1-1.5 cc.? After that 22 gauge 3.5 inch spinal needle was driven sequentially to the points of interest in tunnel vision fashion. After needles gently contacted the bone at the point of interests the needle was injected with small amount of the contrast.? The injection of the contrast did not demonstrate any intravascular or intrathecal spread of the contrast.? After that injection of the? ropivacaine 0.5%-1cc was performed at each needle location.??after that the needles were removed and Bandaids were applied. ? Upon completion of the injections? needle was? removed and sterile Band-Aids were applied.? The patient tolerated procedure very well. Orders: Orders FL guidance in treatment room 02/11/23 M47.816 - Spondylosis without myelopathy or radiculopathy, lumbar region Coding Level of Care Code Procedure Only Diagnoses Facet arthritis of lumbar region M47.816 Lumbar spondylosis M47.816
[2023-02-11 11:30] VITALS: BP 136/62; PULSE 97; RESP 16; O2SAT 97; BMI 39.5
[2023-02-11 13:50] VITALS: BP 140/70; PULSE 76; RESP 14; O2SAT 100; BMI 39.5
== END 2023-02-11 13:20 | disposition home or self-care (01) ==
PROVIDERS: PCP Internal Medicine; Visit Provider Anesthesiology
DX: M47.816 Spondylosis without myelopathy or radiculopathy, lumbar region (principal)
CPT/HCPCS: 64493; 64494

== ENCOUNTER 2023-02-18 10:30 | Outpatient (AMB) | payer OTHER, SELFPAY ==
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
[2023-02-18 10:43] VITALS: BP 134/70; PULSE 86; RESP 14; O2SAT 98; BMI 37.1
== END 2023-02-18 11:03 | disposition home or self-care (01) ==
PROVIDERS: PCP Internal Medicine; Visit Provider Registered Nurse Emergency
DX: M47.816 Spondylosis without myelopathy or radiculopathy, lumbar region (principal)
CPT/HCPCS: 99213

== ENCOUNTER → 2023-02-18 10:30 | Outpatient (BNVA) | payer OTHER, SELFPAY | PROVIDERS: PCP Internal Medicine; Visit Provider Registered Nurse Emergency | DX: M47.816 Spondylosis without myelopathy or radiculopathy, lumbar region (principal); Z98.890 Other specified postprocedural states | CPT/HCPCS: 99212 ==

== ENCOUNTER 2023-03-28 09:31 | Outpatient (AMB) | payer OTHER, SELFPAY ==
[2023-03-28 09:32] VITALS: BP 132/74; PULSE 67; BMI 39.3
--- NOTE | 2023-03-28 09:32 | A.OFFVIS_ITS ---
Intake Vital Signs 03/28/23 09:32 Height 5 ft 4 in Weight 229 lb 0.964 oz BMI 39.3 BP 132/74 Blood Pressure Location Lt brachial Position Sitting Pulse 67 Pulse Source Pulse Oximeter Intake Visit Reasons: f/u Type 2 DM /Confirmed Intake Note: Patient present today to follow up on Type 2 Diabetes Mellitus. Last Diabetic Eye exam: 04/2022 Last Podiatry Visit: Upcoming appt 04/22/23 Random Glucose: 141 mg/dl HgA1C: 7.1% Paper Core Machine Operator Required: Yes Paper Core Machine Operator Language: Slipcover Cutter Name: Radha, Medical Stakisha Information Interpreted: non-clinical & clinical Accompanied by: Self / Same As Patient Allergies enalapril [ENALAPRIL] Allergy (Intermediate, Verified 03/28/23 09:37) Cough cephalexin [From KEFLEX] Allergy (Mild, Verified 03/28/23 09:37) rash ciprofloxacin [CIPROFLOXACIN] Allergy (Mild, Verified 03/28/23 09:37) HIVES,RASH levothyroxine sodium [LEVOTHYROXINE SODIUM] Allergy (Mild, Verified 03/28/23 09:37) RASH WITH GENERIC MED nitrofurantoin [NITROFURANTOIN] Allergy (Mild, Verified 03/28/23 09:37) RASH Penicillins [PENICILLINS] Allergy (Mild, Verified 03/28/23 09:37) RASH sulfamethoxazole [From BACTRIM] Allergy (Mild, Verified 03/28/23 09:37) rash trimethoprim [From BACTRIM] Allergy (Mild, Verified 03/28/23 09:37) rash dulaglutide [From Trulicity] Adverse Reaction (Unknown, Verified 03/28/23 09:37) Rash ALL GENERIC MEDS Allergy (Mild, Uncoded 12/31/22 13:21) Rash SHRIMP Allergy (Unknown, Uncoded 12/31/22 13:21) Unknown HPI HPI Comments History of Present Illness Details Patient is 66-year-old female with DM type 2 diagnosed 2012 , who presents for management of diabetes. Past medical history: Diabetes type 2, hypertension, hyperlipidemia, hx thyroid cancer (pappillary thyroid ca), hypothyroidism, GERD Micro and macrovascular complications: None known Diabetes medications: Lantus 14 units metformin 2 pills of 500 mg twice a day, Trulicity1.5 mg/week. Intolerant of Jardiance due to uncontrollable urination and diarrhea. Symptoms reported: denies numbness, tingling, cramping in lower extremities Hypoglycemia: denies Hyperglycemia: + urinary frequency, +nocturia, polydypsia Unfortunately, patient did not bring log book or glucometer follow-up visit Exerci se: limited due to walking with cane Director Bioinformatics - CDE education: in past but not recently Ctc Operator: denies Dental exam: edentulous Ophthalmology evaluation: no retinopathy. 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 She is currently on 175 mcg levothyroxine She is followed at [facility] for this. [facility] Medical History (Reviewed 12/27/22 @ 11:42 by Blank Harmon [facility] [place]) Acquired hypothyroidism Anxiety Benign essential hypertension Constipation Depression Diabetes type 2, uncontrolled Dyslipidemia GERD without esophagitis halfway (current) use of insulin Lower back pain Lumbar spondylosis Mild recurrent major depression Obesity (BMI 30-39.9) Rash Right arm pain Sacroiliac joint disease Thyroid cancer Surgical History H/O thyroidectomy History of bladder surgery History of cholecystectomy History of esophagogastroduodenoscopy (EGD) History of liver biopsy Hx of colonoscopy Hx of shoulder surgery Family History Father No problems noted. Mother Diabetes Sister Lung cancer Brother H/O heart surgery Diabetes Son Epilepsy Social History Household Members: Significant Other Housing: Apartment Alcohol intake: never Patient Tobacco Use Status: Never used Tobacco e-Cigarette/Vaping Use: Never Used Second Hand Smoke Exposure: No service: No Current occupational status: disabled Gender identity: Female Cognitive needs: Yes Hearing needs: No Vision needs: No Female Reproductive History Menstrual Age of Menarche: 13 Physical Exam Vital Signs: Last Vital Signs Pulse 67 03/28/23 09:32 BP 132/74 03/28/23 09:32 BMI result Body Mass Index 39.3 Absence of Cushingoid features. Absence of acromegalic features. Neck exam reveals nl size thyroid about 15 gms. No thyroid nodules palpable. No carotid bruits present. Lungs CTA. Heart S1 S2, Reg R/R. No M/R/ G. Skin exam reveals absence of vitiligo or acanthosis nigricans. Abdominal exam reveals Soft NT/ND with NA BS. No organomegaly present. Neck Other: . Extrem Other: Visual exam of foot performed. No ulcerations or open lesions. No onchomycosis, no callouses.Pulses 2 + distally Sensation intact to monofilament exam. Vibratory sensation sensed is decreased with 128 Hz tuning fork Results AMB Hemoglobin A1c AMB Hemoglobin A1c 7.1 % Last Edit by DOM Santana on 03/28/23 10:01 Results Reviewed Results Reviewed: 03/28/23 09:47 Glucose, Whole Blood Routine Laboratory Last Values Glucose (Clinic) 141 mg/dL (60-115) H 03/28/23 09:47 Assessment & Plan Assessment & Plan (1) Diabetes mellitus: Code(s): E11.9 - Type 2 diabetes mellitus without complications Qualifiers: Diabetes mellitus type: type 2 Diabetes mellitus mcc insulin use: with buttermaker continuous churn use Diabetes mellitus complication status: without complication Qualified Code(s): E11.9 - Type 2 diabetes mellitus without complications; Z79.4 - intermediate manager (current) use of insulin Plan: This 67-year-old female with a history of type 2 diabetes being treated metformin, Trulicity and basal insulin with excellent improved glycemic control and no known microvascular or macrovascular complications. Plan is to continue current regimen. I prescribed Carley 2 and told the patient to bring it with her to her appointments.. I will refer the patient to a public health educator and dragsaw operator. I have instructed patient check her point cares pre and2 hr breakfast and dinner. She is to follow-up at [facility] for thyroid cancer. Orders: Orders AMB Hemoglobin A1c Today E11.9 - Type 2 diabetes mellitus without complications Referrals Diabetes Education Referral E11.9 - Type 2 diabetes mellitus without complications Medications: New flash glucose sensor (FreeStyle Carley 2 Sensor kit) As directed change every 14 days 2 ea 4RF flash glucose scanning reader (FreeStyle Carley 2 [place]) As directed 1 ea 0RF Refilled pen needle, diabetic (BD Ultra-Fine Aarti Pen Needle) 1 ea subcut DAILY 30 ea 11RF E11.9 - Type 2 diabetes mellitus without complications, Z79.4 - intermediate manager (current) use of insulin Coding Level of Care Code Est Pt Level 4 (03206) Diagnoses Diabetes mellitus E11.9; Z79.4 Diabetes mellitus type: type 2 Diabetes mellitus buttermaker continuous churn insulin use: with buttermaker continuous churn use Diabetes mellitus complication status: without complication
[2023-03-28 09:53] LABS: Glucose, Whole Blood 141 mg/dL (60-115)
== END 2023-03-28 10:06 | disposition home or self-care (01) ==
PROVIDERS: PCP Internal Medicine; Visit Provider Internal Medicine Endocrinology, Diabetes & Metabolism
DX: E11.9 Type 2 diabetes mellitus without complications (principal); Z79.4 Long term (current) use of insulin
CPT/HCPCS: 99214

== ENCOUNTER → 2023-03-28 09:31 | Outpatient (BNVA) | payer OTHER, SELFPAY | PROVIDERS: Visit Provider Internal Medicine Endocrinology, Diabetes & Metabolism | DX: E11.9 Type 2 diabetes mellitus without complications (principal); Z79.4 Long term (current) use of insulin | CPT/HCPCS: 82947; 83036; 99212 ==

== ENCOUNTER 2023-04-28 11:41 | Outpatient (REF) | payer OTHER, SELFPAY ==
[2023-04-28 14:18] LABS: Vitamin B12 702 pg/mL (200-900)
== END 2023-04-28 11:42 | disposition home or self-care (01) ==
LOC: HO.LAB 11:41
PROVIDERS: Visit Provider Psychiatry & Neurology Neurology
DX: G30.9 Alzheimer's disease, unspecified (principal)
CPT/HCPCS: 36415; 82607

== ENCOUNTER 2023-05-02 08:23 | Emergency (ER) | payer OTHER, SELFPAY ==
[2023-05-02 08:36] VITALS: BP 155/69; PULSE 73; RESP 16; TEMP 36.3; O2SAT 95; BMI 34.3
--- NOTE | 2023-05-02 09:09 | ED.EXTPRO ---
HPI - Extremity Problem General Chief complaint: Extremity Problem Stated complaint: FB L Foot 2 Weeks Ago Time Seen by Provider: 05/02/23 09:07 Source: patient Mode of arrival: ambulatory Limitations: no limitations History of Present Illness HPI Narrative: 67 y/o Nigerien speaking female with history of diabetes presents to the ER for evaluation of left foot pain for the last 2 weeks after stepping on a piece of glass. She states she saw a entry processor last week, x-ray showed the glass was in the foot but he did not want to get it out because of her history of DM. She reports ongoing pain on the bottom of the left foot. No open wounds, redness, warmth or drainage per patient. She states the pain is present at rest and with weight bearing. MD Complaint: extremity pain Onset (ago): week(s) (2) Pain Consistency: constant Location: left and other (foot) Quality: aching Radiation: none Relieving factors: nothing Exacerbating factors: weight bearing and palpation Associated symptoms: denies other symptoms Related Data Home Medications Medication Instructions Recorded Confirmed escitalopram oxalate 10 mg tablet 10 mg PO DAILY 06/26/20 12/31/22 mirabegron 25 mg tablet,extended 25 mg PO DAILY 12/15/20 12/31/22 release 24 hr clobetasol 0.05 % topical ointment 1 appl topical DAILY 04/02/22 12/31/22 azelastine 137 mcg (0.1 %) nasal 1 spray intranasal BID 07/02/22 12/31/22 spray aerosol betamethasone valerate 0.1 % 1 appl topical BID 07/02/22 12/31/22 topical cream docusate sodium 100 mg capsule 100 mg PO DAILY 07/02/22 12/31/22 ketotifen fumarate 0.025 % (0.035 0 drp ophthalmic (eye) 07/02/22 12/31/22 %) eye drops levothyroxine 175 mcg tablet 175 mcg PO 07/31/22 12/31/22 (Synthroid) tacrolimus 0.1 % topical ointment topical 11/26/22 12/31/22 triamcinolone acetonide 0.025 % appl topical 11/26/22 12/31/22 topical cream ramelteon 8 mg tablet 8 mg PO DAILY 12/27/22 12/31/22 diphenhydramine HCl 25 mg tablet 25 mg PO BEDTIME PRN allergies 03/28/23 (Banophen) Previous Rx's Medication Instructions Recorded triamcinolone acetonide 0.1 % 1 appl topical BID rash 10 days 08/21/20 topical cream #15 grams hydrocortisone 1 % topical cream 1 appl topical BID PRN skin 09/01/20 (Anti-Itch (hydrocortisone)) irritation 14 days #28.35 grams alprazolam 1 mg tablet (Xanax) 1 - 2 mg (1 - 2 x 1 mg) PO ONCE To 03/20/21 be taken 1 hour before MRI #2 tabs toilet seat elevator #1 ea 04/10/21 lancets 28 gauge (FreeStyle #300 ea 10/16/21 Lancets) white petrolatum 41 % topical 1 appl topical DAILY PRN dry skin 10/31/21 ointment (Aquaphor Healing) 2 weeks #20 grams hydrochlorothiazide 25 mg tablet 25 mg PO DAILY 90 days #90 tabs 05/23/22 omeprazole 20 mg capsule,delayed 20 mg PO QAM 90 days #90 caps 05/23/22 release blood sugar diagnostic (FreeStyle 1 strip miscellaneous TID 90 days 05/30/22 Lite Strips) #300 strips lidocaine 5 % topical ointment 1 appl topical BEDTIME PRN pain 30 07/08/22 days #30 grams humidifiers #1 ea 07/12/22 diclofenac sodium 1 % topical gel 2 g topical QID 1 month #100 grams 09/03/22 lidocaine 5 % topical patch 1 patch topical DAILY PRN pain #30 11/12/22 (Lidoderm) ea plecanatide 3 mg tablet (Trulance) 3 mg PO DAILY #30 tabs 11/15/22 insulin glargine 100 unit/mL (3 14 unit (0.14 mL) subcut DAILY 30 11/28/22 mL) subcutaneous pen (Lantus days #4.2 mL Solostar U-100 Insulin) acetaminophen 500 mg tablet 500 mg PO Q6H PRN fever or pain 30 12/31/22 (Tylenol Extra Strength) days #120 tabs atorvastatin 20 mg tablet 20 mg PO DAILY 90 days #90 tabs 12/31/22 cyclobenzaprine 5 mg tablet 5 mg PO Q8H PRN pain (scale score 12/31/22 7-10) 5 days #14 tabs diphenhydramine HCl 25 mg capsule 25 mg PO BEDTIME PRN allergic 12/31/22 (Banophen) reaction 30 days #20 caps disposable gloves (Biobrane Gloves #100 ea 12/31/22 Large) losartan 25 mg tablet 25 mg PO DAILY 90 days #90 tabs 12/31/22 naproxen 500 mg tablet 500 mg PO BID PRN pain 10 days #20 12/31/22 tabs adult diapers #240 ea 01/07/23 underpads (Bed Underpads) #150 ea 01/07/23 wipes #200 ea 01/07/23 metformin 500 mg tablet 1,000 mg (2 x 500 mg) PO BID #120 01/13/23 tabs pen needle, diabetic 32 gauge x 1 ea subcut DAILY #30 ea 03/28/23 (BD Ultra-Fine Aarti Pen Needle) flash glucose sensor (Tangent Data ServicesStyle #2 ea 04/08/23 Carley 2 Sensor kit) tramadol 50 mg tablet 50 mg PO BID PRN pain #10 tabs 04/09/23 flash glucose scanning reader #1 ea 04/23/23 (FreeStyle Carley 2 Cadott) dulaglutide 0.75 mg/0.5 mL 0.75 mg (0.5 mL) subcut QWEEK #2 mL 04/28/23 [facility] dicyclomine 20 mg tablet 20 mg PO TID 30 days #90 tabs 05/01/23 naproxen 375 mg tablet 375 mg PO BID PRN pain #14 tabs 05/02/23 Allergies Allergy/AdvReac Type Severity Reaction Status Date / Time enalapril [ENALAPRIL] Allergy Intermediate Cough Verified 03/28/23 09:37 cephalexin [From KEFLEX] Allergy Mild rash Verified 03/28/23 09:37 ciprofloxacin [CIPROFLOXACIN] Allergy Mild HIVES,RASH Verified 03/28/23 09:37 levothyroxine sodium Allergy Mild RASH WITH Verified 03/28/23 09:37 [LEVOTHYROXINE SODIUM] GENERIC MED nitrofurantoin Allergy Mild RASH Verified 03/28/23 09:37 [NITROFURANTOIN] Penicillins [PENICILLINS] Allergy Mild RASH Verified 03/28/23 09:37 sulfamethoxazole Allergy Mild rash Verified 03/28/23 09:37 [From BACTRIM] trimethoprim [From BACTRIM] Allergy Mild rash Verified 03/28/23 09:37 dulaglutide [From Trulicity] AdvReac Unknown Rash Verified 03/28/23 09:37 ALL GENERIC MEDS Allergy Mild Rash Uncoded 12/31/22 13:21 SHRIMP Allergy Unknown Unknown Uncoded 12/31/22 13:21 Review of Systems Review of Systems: Yes all other systems are reviewed and are negative [facility] Past Medical History Medical History Acquired hypothyroidism Anxiety Benign essential hypertension Constipation Depression Diabetes type 2, uncontrolled Dyslipidemia GERD without esophagitis prison (current) use of insulin Lower back pain Lumbar spondylosis Mild recurrent major depression Obesity (BMI 30-39.9) Rash Right arm pain Sacroiliac joint disease Thyroid cancer Surgical History H/O thyroidectomy History of bladder surgery History of cholecystectomy History of esophagogastroduodenoscopy (EGD) History of liver biopsy Hx of colonoscopy Hx of shoulder surgery Family History Family History Father No problems noted. Mother Diabetes Sister Lung cancer Brother H/O heart surgery Diabetes Son Epilepsy Social History Social History Household Members: Significant Other Housing: Apartment Alcohol intake: never Patient Tobacco Use Status: Never used Tobacco e-Cigarette/Vaping Use: Never Used Second Hand Smoke Exposure: No Advance Directives: No Advance Directives Information Provided: Yes service: No Current occupational status: disabled Gender identity: Female Cognitive needs: Yes Hearing needs: No Vision needs: No Physical Exam Vital Signs: Vital Signs: Last Vital Signs Temp 97.3 F 05/02/23 08:36 Pulse 73 05/02/23 08:36 Resp 16 05/02/23 08:36 BP 155/69 H 05/02/23 08:36 Pulse Ox 95 05/02/23 08:36 O2 Del Method Room Air 05/02/23 08:36 BMI result Body Mass Index 34.3 Appearance: Alert. Oriented X3. No acute distress. HEENT: normal inspection CVS: Normal heart rate and rhythm. Pulses normal. Respiratory: No respiratory distress. Skin: Skin warm and dry. Normal skin color. Normal skin turgor. No rashes. Extremities: left foot without swelling, dry skin, superficial small varicose veins medially. the plantar aspect of the foot is normal to inspection. the midfoot has some tenderness without associated erythema, warmth or palpable FB. no wounds. Neuro: Oriented X 3. No motor deficit. No sensory deficit. steady gait Medical Decision Making Medical Decision Making MDM Narrative: 67 yo diabetic female presenting with left plantar foot pain s/p stepping on glass 2 weeks ago. no signs of infection, no palpable FB on xam. x-ray shows no foreign body. no indication to explore the area today given her hx DM. she has a entry processor to follow up. stable for d/c home Differential Diagnosis Differential Diagnoses: The differential diagnosis associated with the presentation includes retained forieng body, cellulitis, foot ulcer, plantar fasciitis Independent Interpretation I performed an independent interpretation of an: Plain X-Ray Interpretation: no visible foreign body, agree w/ radiology read Radiology Impression Discussion of test interpretation with radiology: I have reviewed the radiologist's reading. Radiologist Impression: EXAMINATION: XR FOOT, LEFT CLINICAL INFORMATION: Left foot pain. Question foreign body. COMPARISON: Left foot radiographs dated 12/04/2021. TECHNIQUE: AP, lateral, and oblique views of the left foot. FINDINGS: Focal soft tissue swelling lateral to the 5th metatarsophalangeal joint. No abnormal soft tissue calcification or radiopaque foreign body. No acute fracture or dislocation. Plantar and dorsal calcaneal spurs. XR/XR foot LT 2V IMPRESSION: 1. Focal soft tissue swelling lateral to the 5th metatarsophalangeal joint. No radiopaque foreign body or abnormal soft tissue calcification. 2. Plantar and dorsal calcaneal spurs. External Record Review External record reviewed: Office record, Outpatient record and Prior outpatient labs Prescription Management I considered prescription management with: Pain Medication and Antibiotic Chronic Conditions Patient?s care impacted by: Diabetes Critical Care Time Critical Care Time Critical Care Time: No Discharge Plan Discharge Clinical Impression: Foot pain, left Patient Disposition: Home, Self-Care Instructions: Metatarsalgia (DC) Additional Instructions: Your x-ray today did not show any glass in the foot. Take the prescribed medication as needed for pain Recommend following up with your foot doctor as soon as possible. If you develop new or worsening symptoms call 911 or come back to the ER for further evaluation. Ansari radiograf?a de hoy no mostr? joseph?n sumi en el pie. [place] los medicamentos recetados seg?n sea necesario para el dolor. Recomiende realizar un seguimiento con ansari pod?logo lo antes posible. Si desarrolla s?ntomas nuevos o que empeoran, llame al 911 o regrese a la kev de emergencias para telma evaluaci?n adicional. Prescriptions: New naproxen 375 mg tablet 375 mg PO BID PRN (Reason: pain) Qty: 14 0RF No Action hydrocortisone [Anti-Itch (HC)] 1 % cream 1 appl topical BID PRN (Reason: skin irritation) 14 Days Qty: 28.35 1RF alprazolam [Xanax] 1 mg tablet 1 - 2 mg PO ONCE Qty: 2 0RF (DME) toilet seat elevator See Rx Instructions .Route .MEDSUPPLY Qty: 1 0RF Rx Instructions: As directed (DME) lancets [FreeStyle Lancets] 28 gauge misc See Rx Instructions .ROUTE .MEDSUPPLY Qty: 300 6RF Rx Instructions: 3 times aday Aquaphor Healing 41 % ointment 1 appl topical DAILY PRN (Reason: dry skin) 14 Days Qty: 20 0RF hydrochlorothiazide 25 mg tablet 25 mg PO DAILY 90 Days Qty: 90 4RF FreeStyle Lite Strips Strip 1 strip miscellaneous TID 90 Days Qty: 300 11RF (DME) humidifiers Misc See Rx Instructions .Route Qty: 1 0RF Rx Instructions: As directed diclofenac sodium 1 % gel 2 g topical QID 30 Days Qty: 100 4RF Rx Instructions: apply to single elbow, wrist or hand; for hand includes palm/fingers/back of hand insulin glargine [Lantus Solostar U-100 Insulin] 100 unit/mL (3 mL) insulin pen 14 unit subcut DAILY 30 Days Qty: 4.2 4RF (DME) disposable gloves [Biobrane Gloves Large] Misc See Rx Instructions .Route Qty: 100 6RF Rx Instructions: As directed (DME) adult diapers large See Rx Instructions .Route .MEDSUPPLY Qty: 240 11RF Rx Instructions: As directed (DME) underpads [Bed Underpads] Pad See Rx Instructions .Route Qty: 150 11RF Rx Instructions: Use 1 to 3 once a day prn (DME) wipes See Rx Instructions .Route .MEDSUPPLY Qty: 200 11RF Rx Instructions: As directed metformin 500 mg tablet 1,000 mg PO BID Qty: 120 4RF (DME) FreeStyle Carley 2 Sensor Kit See Rx Instructions .Route Qty: 2 11RF Rx Instructions: As directed change every 14 days tramadol 50 mg tablet 50 mg PO BID PRN (Reason: pain) Qty: 10 0RF (DME) FreeStyle Carley 2 Cadott Misc See Rx Instructions .Route Qty: 1 0RF Rx Instructions: As directed Trulicity 0.75 mg/0.5 mL pen injector 0.75 mg subcut QWEEK Qty: 2 4RF dicyclomine 20 mg tablet 20 mg PO TID 30 Days Qty: 90 1RF lidocaine [Lidoderm] 5 % adhesive patch,medicated 1 patch topical DAILY MDD remove after 12 hours PRN (Reason: pain) Qty: 30 0RF Rx Instructions: leave on most painful area for up to 12 hrs triamcinolone acetonide 0.1 % cream 1 appl topical BID 10 Days Qty: 15 0RF lidocaine 5 % ointment 1 appl topical BEDTIME PRN (Reason: pain) 30 Days Qty: 30 0RF diphenhydramine HCl [Banophen] 25 mg capsule 25 mg PO BEDTIME PRN (Reason: allergic reaction) 30 Days Qty: 20 2RF acetaminophen [Tylenol Extra Strength] 500 mg tablet 500 mg PO Q6H PRN (Reason: fever or pain) 30 Days Qty: 120 2RF atorvastatin 20 mg tablet 20 mg PO DAILY 90 Days Qty: 90 2RF cyclobenzaprine 5 mg tablet 5 mg PO Q8H PRN (Reason: pain (scale score 7-10)) 5 Days Qty: 14 0RF naproxen 500 mg tablet 500 mg PO BID PRN (Reason: pain) 10 Days Qty: 20 0RF losartan 25 mg tablet 25 mg PO DAILY 90 Days Qty: 90 3RF omeprazole 20 mg capsule,delayed release(DR/EC) 20 mg PO QAM 90 Days Qty: 90 5RF levothyroxine [Synthroid] 175 mcg tablet 175 mcg PO escitalopram oxalate 10 mg tablet 10 mg PO DAILY mirabegron 25 mg tablet extended release 24 hr 25 mg PO DAILY clobetasol 0.05 % ointment 1 appl topical DAILY Rx Instructions: Use daily for 2 weeks, then every other day for 2 wks, then twice a week docusate sodium 100 mg capsule 100 mg PO DAILY azelastine 137 mcg (0.1 %) aerosol,spray 1 spray intranasal BID betamethasone valerate 0.1 % cream 1 appl topical BID ketotifen fumarate 0.025 % (0.035 %) drops 0 drp ophthalmic (eye) tacrolimus 0.1 % ointment topical triamcinolone acetonide 0.025 % cream topical Trulance 3 mg tablet 3 mg PO DAILY Qty: 30 6RF ramelteon 8 mg tablet 8 mg PO DAILY diphenhydramine HCl [Banophen] 25 mg tablet 25 mg PO BEDTIME PRN (Reason: allergies) pen needle, diabetic [BD Ultra-Fine Aarti Pen Needle] 32 gauge x 5/32 needle 1 ea subcut DAILY Qty: 30 11RF Referrals: Yael Alex MD [Primary Care Provider] - Interventions: ED Discharge Assessment Last Done: 05/02/23 11:49 Discharge Date/Time: 05/02/23 11:49 Print Language: Nigerien
--- NOTE | 2023-05-02 09:53 | PC.NURSE ---
sales representative livestock and provider bedside. pt states she stepped on a piece of glass 2 weeks ago. states she saw assistant men's soccer coach in [place] 1 week ago. middle of left paper cone machine tender to touch. no redness/swelling noted. pt states she's been taking tylenol w/o relief. plan is to wait for x-ray results. pt rincon of plan of care at this time.
== END 2023-05-02 11:49 | disposition home or self-care (01) ==
PROVIDERS: Emergency Provider Emergency Medicine; PCP Internal Medicine
DX: M79.672 Pain in left foot (principal); E11.9 Type 2 diabetes mellitus without complications; I10 Essential (primary) hypertension; E78.5 Hyperlipidemia, unspecified; E66.9 Obesity, unspecified; Z68.34 Body mass index [BMI] 34.0-34.9, adult; Z79.4 Long term (current) use of insulin; Z79.899 Other long term (current) drug therapy
CPT/HCPCS: 73620; 99282; 99283

== ENCOUNTER 2023-05-08 10:40 | Outpatient (AMB) | payer OTHER, SELFPAY ==
--- NOTE | 2023-05-08 10:43 | A.OFFPC_ITS ---
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 Required: No Accompanied by: Friend Allergies enalapril [ENALAPRIL] Allergy (Intermediate, Verified 05/08/23 10:58) Cough cephalexin [From KEFLEX] Allergy (Mild, Verified 05/08/23 10:58) rash ciprofloxacin [CIPROFLOXACIN] Allergy (Mild, Verified 05/08/23 10:58) HIVES,RASH levothyroxine sodium [LEVOTHYROXINE SODIUM] Allergy (Mild, Verified 05/08/23 10:58) RASH WITH GENERIC MED nitrofurantoin [NITROFURANTOIN] Allergy (Mild, Verified 05/08/23 10:58) RASH Penicillins [PENICILLINS] Allergy (Mild, Verified 05/08/23 10:58) RASH sulfamethoxazole [From BACTRIM] Allergy (Mild, Verified 05/08/23 10:58) rash trimethoprim [From BACTRIM] Allergy (Mild, Verified 05/08/23 10:58) rash dulaglutide [From Trulicity] Adverse Reaction (Unknown, Verified 05/08/23 10:58) Rash ALL GENERIC MEDS Allergy (Mild, Uncoded 05/08/23 10:58) Rash SHRIMP Allergy (Unknown, Uncoded 05/08/23 10:58) Unknown Medication List - Last Reconciled 05/08/23 by Yael Talbot MD acetaminophen (Tylenol Extra Strength) 500 mg PO Q6H PRN 30 days [adult diapers As directed] alprazolam (Xanax) 1 - 2 mg (1 - 2 x 1 mg) PO ONCE atorvastatin 20 mg PO DAILY 90 days azelastine 1 spray intranasal BID betamethasone valerate 0.1% 1 appl topical BID blood sugar diagnostic (FreeStyle Lite Strips) 1 strip miscellaneous TID 90 days clobetasol 0.05% 1 appl topical DAILY cyclobenzaprine 5 mg PO Q8H PRN 5 days diclofenac sodium 1% 2 grams topical QID 1 month dicyclomine 20 mg PO TID 30 days diphenhydramine HCl (Banophen) 25 mg PO BEDTIME PRN 30 days diphenhydramine HCl (Banophen) 25 mg PO BEDTIME PRN disposable gloves (Biobrane Gloves Large) As directed docusate sodium 100 mg PO DAILY dulaglutide (Trulicity) 0.75 mg (0.5 mL) subcut QWEEK escitalopram oxalate 10 mg PO DAILY flash glucose scanning reader ([employer] Carley 2 Rawson) As directed flash glucose sensor (ESCAPESwithYOUyle Carley 2 Sensor kit) As directed change every 14 days humidifiers As directed hydrochlorothiazide 25 mg PO DAILY 90 days NS hydrocortisone 1% (Anti-Itch (hydrocortisone)) 1 appl topical BID PRN 14 days insulin glargine (Lantus Solostar U-100 Insulin) 14 units (0.14 mL) subcut DAILY 30 days ketotifen fumarate 0.025%(0.035%) 0 drps ophthalmic (eye) lancets (ESCAPESwithYOUyle Lancets) 3 times aday levothyroxine (Synthroid) 175 mcg PO lidocaine 5% (Lidoderm) 1 patch topical DAILY PRN MDD remove after 12 hours lidocaine 5% 1 appl topical BEDTIME PRN 30 days losartan 25 mg PO DAILY 90 days metformin 1,000 mg (2 x 500 mg) PO BID mirabegron ER 25 mg PO DAILY naproxen 375 mg PO BID PRN naproxen 500 mg PO BID PRN 10 days omeprazole 20 mg PO QAM 90 days NS pen needle, diabetic (BD Ultra-Fine Aarti Pen Needle) 1 ea subcut DAILY plecanatide (Trulance) 3 mg PO DAILY ramelteon 8 mg PO DAILY tacrolimus 0.1% topical [toilet seat elevator As directed] tramadol 50 mg PO BID PRN triamcinolone acetonide 0.1% 1 appl topical BID 10 days triamcinolone acetonide 0.025% appl topical underpads (Bed Underpads) Use 1 to 3 once a day prn white petrolatum 41% (Aquaphor Healing) 1 appl topical DAILY PRN 2 weeks [wipes As directed] Tobacco use date assessed: 12/31/22 Fall risk assessment: No Falls in past year Last assessed Fall Risk: 05/08/23 Dental Screening Dental Screen Date: 05/08/23 Did you have a dental visit in the last 12 months?: No Did you have a dental problem in the last 6 months where you did not have access to dental care?: No Was dental information given to patient?: Patient declined HPI HPI Comments History of Present Illness Details This is a 67-year-old female with diabetes mellitus type 2, hypertension and mild recurrent major depression that complains of lumbar pain that started yesterday with no previous trauma. No fever, bowel or bladder incontinence. Lumbar pain does not radiate to the legs and is not associated with any leg numbness. She has facet arthritis of lumbar region. X-ray was ordered and would like lidocaine patches which were prescribed. A1c close to goal. Blood pressure elevated and this will be recheck at home. Depression stable with medications. Walks with a cane for gait stability. Accompanied by friend Kirstin. [facility]LY [facility] Medical History Mild recurrent major depression Thyroid cancer Right arm pain Rash Depression Anxiety Sacroiliac joint disease Lumbar spondylosis GERD without esophagitis Acquired hypothyroidism Benign essential hypertension Lower back pain Constipation Obesity (BMI 30-39.9) Dyslipidemia long-term (current) use of insulin Diabetes type 2, uncontrolled Surgical History Hx of shoulder surgery History of liver biopsy History of esophagogastroduodenoscopy (EGD) Hx of colonoscopy History of cholecystectomy History of bladder surgery H/O thyroidectomy Family History Father No problems noted. Mother Diabetes Sister Lung cancer Brother H/O heart surgery Diabetes Son Epilepsy Social History Household Members: Significant Other Housing: Apartment Alcohol intake: never Patient Tobacco Use Status: Never used Tobacco e-Cigarette/Vaping Use: Never Used Second Hand Smoke Exposure: No service: No Current occupational status: disabled Gender identity: Female Cognitive needs: Yes Hearing needs: No Vision needs: No Female Reproductive History Menstrual Age of Menarche: 13 Questionnaire Thrive Questionnaire Date Thrive assessed: 11/13/21 DENIS-7 AMB Questionnaire DENIS-7 Date DENIS - 7 assessed: 12/31/22 Source: Developed by Drs. Lelnad Gregorio, Elda Quinteros, Lamin Pierre and colleagues, with an educational edilberto from [employer]. Review of Systems Const All systems reviewed & are unremarkable except as noted in HPI and below Eyes Reports no additional complaints, Denies change in vision and Denies other visual disturbances Card Denies chest pain at rest, Denies chest pain with activity, Denies edema, Denies irregular heart rhythm, Denies claudication, Denies dyspnea, Denies dyspnea on exertion, Denies orthopnea, Denies paroxysmal nocturnal dyspnea and Denies slow heart rate Resp Denies cough, Denies dyspnea and Denies dyspnea on exertion GI Denies abdominal pain, Denies change in bowel habits, Denies excessive flatus, Denies nausea and Denies vomiting Denies urinary incontinence, Denies urinary hesitancy and Denies urinary urgency Musc Denies abnormal gait, Denies atrophy, Denies deformity and Denies limited range of motion Skin/Breast Denies bleeding lesions, Denies changing lesions and Denies rash Neuro Denies abnormal gait and Denies lack of coordination Physical exam (Primary Care) Vital Signs: Last Vital Signs Pulse 64 05/08/23 10:46 BP 156/80 H 05/08/23 10:46 Pulse Ox 98 05/08/23 10:46 Oxygen Delivery Method Room Air 05/08/23 10:46 BMI result Body Mass Index 38.3 Tobacco/Smoking Status: Tobacco use Status Tobacco use date assessed 12/31/22 05/08/23 10:45 Patient Tobacco Use Status Never used Tobacco 05/08/23 10:45 e-Cigarette/Vaping Use Never Used 05/08/23 10:45 Thrive Assessment: Date of Thrive Assessment Date Thrive assessed 11/13/21 05/08/23 10:45 Eyes General: appearance normal, both eyes and all related structures Eyelids: Yes eyelids normal Conjunctivae: conjunctivae normal Neck Neck: Yes normal visual inspection and Yes supple Resp Effort & Inspection: normal respiratory effort Auscultation: clear to auscultation bilaterally Cardio Jugular venous distension: no JVD Rate: regular rate Rhythm: regular rhythm Heart sounds: S1 normal heart sound present and S2 normal heart sound present Extrem General: Yes full ROM Assessment and Plan Assessment & Plan (1) Mild recurrent major depression: Code(s): F33.0 - Major depressive disorder, recurrent, mild Plan: Continue Escitalopram (2) Essential hypertension: Code(s): I10 - Essential (primary) hypertension Plan: Continue Losartan and HCTZ. BP goal is equal or less than 130/80. 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 A1c goal is equal or less than 7%. (4) Facet arthritis of lumbar region: Code(s): M47.816 - Spondylosis without myelopathy or radiculopathy, lumbar region Plan: X-ray ordered. Start lidocaine patch. Orders: Orders Lipid Panel 5 Months E78.5 - Hyperlipidemia, unspecified Vitamin D 25-OH Total 5 Months E55.9 - Vitamin D deficiency, unspecified Comprehensive [place]. Panel Fast 5 Months E11.9 - Type 2 diabetes mellitus without complications, Z79.4 - long-term (current) use of insulin XR lumbar spine 2-3V Today M47.816 - Spondylosis without myelopathy or radiculopathy, lumbar region Microalbumin, Random (w Creat) 5 Months E11.9 - Type 2 diabetes mellitus without complications Thyroid Stimulating Hormone 5 Months E03.9 - Hypothyroidism, unspecified Medications: New lidocaine 5% leave on most painful area for up to 12 hrs 1 patch topical DAILY 30 days PRN 30 ea 1RF pain Coding Level of Care Code Est Pt Level 4 (46450) Diagnoses Mild recurrent major depression F33.0 Essential hypertension I10 Type 2 diabetes mellitus without complication, with long-term current use of insulin E11.9; Z79.4 Diabetes mellitus type: type 2 Diabetes mellitus 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
[2023-05-08 10:46] VITALS: BP 156/80; PULSE 64; O2SAT 98; BMI 38.3
[2023-05-08 12:31] VITALS: BP 146/80
== END 2023-05-08 11:11 | disposition home or self-care (01) ==
PROVIDERS: PCP Internal Medicine; Visit Provider Internal Medicine
DX: F33.0 Major depressive disorder, recurrent, mild (principal); I10 Essential (primary) hypertension; E11.9 Type 2 diabetes mellitus without complications; Z79.4 Long term (current) use of insulin; M47.816 Spondylosis without myelopathy or radiculopathy, lumbar region
CPT/HCPCS: 99214

== ENCOUNTER 2023-05-09 09:39 | Outpatient (REF) | payer OTHER, SELFPAY ==
--- NOTE | ~2023-05-09 | XR_ITS ---
EXAMINATION: XR LUMBOSACRAL SPINE CLINICAL INFORMATION: Spondylosis without myelopathy or radiculopathy lumbar region COMPARISON: 09/09/2021 TECHNIQUE: Three views of the lumbosacral spine. FINDINGS: Mild dextroscoliosis of the lumbar spine. Degenerative changes in the sacroiliac joints with asymmetric sclerosis and narrowing at the right sacroiliac joint. Facet arthritis in the lower lumbar spine. Degenerative changes with narrowing and hypertrophic change in the bilateral hips. Advanced degenerative changes in the partially imaged lower thoracic spine. Redemonstration of mild loss of height of T12 vertebral body. Redemonstration of minimal retrolisthesis of L2 on L3. Multilevel lumbar spondylosis, progressed with hypertrophic change most notable at L1-L2. XR/XR lumbar spine 2-3V IMPRESSION: 1. Progression of multilevel lumbar spondylosis. 2. Similar mild loss of height of T12 vertebral body. 3. Asymmetric degenerative changes in the right greater than left sacroiliac joint.
== END 2023-05-09 09:40 | disposition home or self-care (01) ==
LOC: HO.XRAY 09:39
PROVIDERS: PCP Internal Medicine; Visit Provider Internal Medicine
DX: M47.816 Spondylosis without myelopathy or radiculopathy, lumbar region (principal)
CPT/HCPCS: 72100

== ENCOUNTER 2023-05-21 08:35 | Outpatient (REF) | payer OTHER, SELFPAY ==
--- NOTE | ~2023-05-21 | MM_ITS ---
EXAMINATION: BONE DENSITOMETRY CLINICAL INDICATION: Menopause. COMPARISON: This is the patient's baseline examination. TECHNIQUE: Using a [employer] DXA System (software version: 13.1) manufactured by [facility], dual-energy x-ray absorptiometry was performed of the lumbar spine and left hip. The images are of good technical quality. Summary results are attached. FINDINGS: LEFT FEMUR, NECK: BMD 0.943 g/cm2, Z-score 0.4, T-score -0.7, normal. LEFT FEMUR, TOTAL: BMD 1.071 g/cm2, Z-score 1.3, T-score 0.5, normal. AP SPINE L1-L4: BMD 0.900 g/cm2, Z-score -1.5, T-score -2.3, osteopenia. IDENTIFIED RISK FACTORS: Menopause, history of fracture (adult), secondary osteoporosis (diabetes type 1). HISTORY OF FRACTURE: Shoulder. MEDICATIONS: Calcium, multivitamin. MM/XR DEXA axial skeleton IMPRESSION: 1. DIAGNOSIS: Osteopenia based on the lowest T-score value of -2.3 in the lumbar spine applying World Health Organization criteria. 2. 10-YEAR FRACTURE RISK PREDICTION, FRAX: Major osteoporotic fracture (clinical spine, forearm, hip or shoulder) 7.0%. Hip fracture 0.5%. 3. Treatment Recommendations: NOF guidelines recommend consideration for treatment in postmenopausal women and men age 50 and older presenting with the following: -A hip or vertebral (clinical or morphometric) fracture. -T-score less than or equal to -2.5 at the femoral neck or spine after appropriate evaluation to exclude secondary causes. -Low bone mass at the hip or spine and a 10-year fracture probability by FRAX of greater than or equal to 3% for hip fracture or greater than or equal to 20% for major osteoporotic fracture based on the [place] adapted WHO algorithm. 4. Other Recommendations: All treatment decisions require clinical judgment and consideration of individual patient factors, including patient preferences, comorbidities, previous drug use, risk factors not captured in the FRAX model (e.g. frailty, falls, vitamin D deficiency, increased bone turnover, interval significant decline in bone density) and possible under or overestimation of fracture risk by FRAX. Additional medical evaluation for secondary cause of low bone mineral density may be appropriate. FUTURE SCAN RECOMMENDATION: People with diagnosed cases of osteoporosis or at high risk for fracture should have regular bone mineral density tests. For patients eligible for Medicare, routine testing is allowed once every 2 years. The testing frequency can be increased to one year for patients who have rapidly progressing disease, those who are receiving or discontinuing medical therapy to restore bone mass, or have additional risk factors.
== END 2023-05-21 08:36 | disposition home or self-care (01) ==
LOC: HO.MAMMO 08:35
PROVIDERS: PCP Internal Medicine; Visit Provider Internal Medicine
DX: Z12.31 Encounter for screening mammogram for malignant neoplasm of breast (principal); Z13.820 Encounter for screening for osteoporosis; Z78.0 Asymptomatic menopausal state
CPT/HCPCS: 77063; 77067; 77080

== ENCOUNTER → 2023-05-21 10:30 | Outpatient (BNV) | payer OTHER, SELFPAY | PROVIDERS: PCP Internal Medicine; Visit Provider Radiology Diagnostic Radiology | DX: Z12.31 Encounter for screening mammogram for malignant neoplasm of breast (principal) | CPT/HCPCS: 77063; 77067 ==

== ENCOUNTER 2023-06-05 06:36 | Emergency (ER) | payer OTHER, SELFPAY ==
--- NOTE | ~2023-06-05 | US_ITS ---
EXAMINATION: US ABDOMEN LIMITED CLINICAL INFORMATION: Right upper quadrant pain. COMPARISON: None available. TECHNIQUE: Real-time imaging of the right upper quadrant abdominal viscera. This study is limited due to bowel gas and patient's body habitus. FINDINGS: PANCREAS: Pancreas could not be assessed as it was obscured by bowel gas LIVER: The liver is normal in size. The liver contour is normal. There is diffuse increased liver parenchymal echogenicity, consistent with hepatic steatosis. No focal hepatic lesion. There is no intrahepatic biliary duct dilatation seen. GALLBLADDER: Surgically absent. COMMON BILE DUCT: Normal in caliber measuring 0.4 cm in diameter. RIGHT KIDNEY: No hydronephrosis. No renal calculi or focal parenchymal lesions. The kidney measures 9.3m cm in maximum dimension. FREE FLUID: None. US/US abdomen limited IMPRESSION: 1. Hepatic steatosis. 2. Status post cholecystectomy. 3. Pancreas could not be assessed.
--- NOTE | 2023-06-05 06:44 | ED.GENADULT ---
HPI - General Adult General Chief complaint: General Medical Stated complaint: right flank pain Time Seen by Provider: 06/05/23 06:43 Source: patient Mode of arrival: ambulatory Limitations: no limitations History of Present Illness HPI narrative: This is a 67-year-old female history of thyroid cancer, urinary incontinence, urticaria, depression, GERD, arthritis, diabetes, hypertension presenting to the emergency department for evaluation of right upper quadrant pain for the past few days, patient reports the pain 1st started 3 days ago and has been intermittent and aching ever since. patient denies associated nausea, vomiting, fevers, chills, chest pain, shortness of breath, headache, vision changes, dizziness, weakness, blood in urine, blood in stool, changes in urination Related Data Home Medications Medication Instructions Recorded Confirmed escitalopram oxalate 10 mg tablet 10 mg PO DAILY 06/26/20 05/08/23 mirabegron 25 mg tablet,extended 25 mg PO DAILY 12/15/20 05/08/23 release 24 hr clobetasol 0.05 % topical ointment 1 appl topical DAILY 04/02/22 05/08/23 azelastine 137 mcg (0.1 %) nasal 1 spray intranasal BID 07/02/22 05/08/23 spray aerosol betamethasone valerate 0.1 % 1 appl topical BID 07/02/22 05/08/23 topical cream docusate sodium 100 mg capsule 100 mg PO DAILY 07/02/22 05/08/23 ketotifen fumarate 0.025 % (0.035 0 drp ophthalmic (eye) 07/02/22 05/08/23 %) eye drops levothyroxine 175 mcg tablet 175 mcg PO 07/31/22 05/08/23 (Synthroid) tacrolimus 0.1 % topical ointment topical 11/26/22 05/08/23 triamcinolone acetonide 0.025 % appl topical 11/26/22 05/08/23 topical cream ramelteon 8 mg tablet 8 mg PO DAILY 12/27/22 05/08/23 diphenhydramine HCl 25 mg tablet 25 mg PO BEDTIME PRN allergies 03/28/23 05/08/23 (Banophen) Previous Rx's Medication Instructions Recorded triamcinolone acetonide 0.1 % 1 appl topical BID rash 10 days 08/21/20 topical cream #15 grams hydrocortisone 1 % topical cream 1 appl topical BID PRN skin 09/01/20 (Anti-Itch (hydrocortisone)) irritation 14 days #28.35 grams alprazolam 1 mg tablet (Xanax) 1 - 2 mg (1 - 2 x 1 mg) PO ONCE To 03/20/21 be taken 1 hour before MRI #2 tabs toilet seat elevator #1 ea 04/10/21 lancets 28 gauge (FreeStyle #300 ea 10/16/21 Lancets) white petrolatum 41 % topical 1 appl topical DAILY PRN dry skin 10/31/21 ointment (Aquaphor Healing) 2 weeks #20 grams hydrochlorothiazide 25 mg tablet 25 mg PO DAILY 90 days #90 tabs 05/23/22 omeprazole 20 mg capsule,delayed 20 mg PO QAM 90 days #90 caps 05/23/22 release lidocaine 5 % topical ointment 1 appl topical BEDTIME PRN pain 30 07/08/22 days #30 grams humidifiers #1 ea 07/12/22 diclofenac sodium 1 % topical gel 2 g topical QID 1 month #100 grams 09/03/22 lidocaine 5 % topical patch 1 patch topical DAILY PRN pain #30 11/12/22 (Lidoderm) ea plecanatide 3 mg tablet (Trulance) 3 mg PO DAILY #30 tabs 11/15/22 insulin glargine 100 unit/mL (3 14 unit (0.14 mL) subcut DAILY 30 11/28/22 mL) subcutaneous pen (Lantus days #4.2 mL Solostar U-100 Insulin) acetaminophen 500 mg tablet 500 mg PO Q6H PRN fever or pain 30 12/31/22 (Tylenol Extra Strength) days #120 tabs atorvastatin 20 mg tablet 20 mg PO DAILY 90 days #90 tabs 12/31/22 diphenhydramine HCl 25 mg capsule 25 mg PO BEDTIME PRN allergic 12/31/22 (Banophen) reaction 30 days #20 caps disposable gloves (Biobrane Gloves #100 ea 12/31/22 Large) losartan 25 mg tablet 25 mg PO DAILY 90 days #90 tabs 12/31/22 adult diapers #240 ea 01/07/23 underpads (Bed Underpads) #150 ea 01/07/23 wipes #200 ea 01/07/23 metformin 500 mg tablet 1,000 mg (2 x 500 mg) PO BID #120 01/13/23 tabs pen needle, diabetic 32 gauge x 1 ea subcut DAILY #30 ea 03/28/23 (BD Ultra-Fine Aarti Pen Needle) flash glucose sensor (FreeStyle #2 ea 04/08/23 Carley 2 Sensor kit) tramadol 50 mg tablet 50 mg PO BID PRN pain #10 tabs 04/09/23 flash glucose scanning reader #1 ea 04/23/23 (FreeStyle Carley 2 [place]) dulaglutide 0.75 mg/0.5 mL 0.75 mg (0.5 mL) subcut QWEEK #2 mL 04/28/23 subcutaneous [facility] ([facility]) dicyclomine 20 mg tablet 20 mg PO TID 30 days #90 tabs 05/01/23 naproxen 375 mg tablet 375 mg PO BID PRN pain #14 tabs 05/02/23 lidocaine 5 % topical patch 1 patch topical DAILY PRN pain 30 05/08/23 days #30 ea cyclobenzaprine 5 mg tablet 5 mg PO Q8H PRN pain (scale score 05/12/23 7-10) 5 days #14 tabs naproxen 500 mg tablet 500 mg PO BID PRN pain 10 days #20 05/12/23 tabs blood sugar diagnostic (FreeStyle 1 strip miscellaneous TID 90 days 06/04/23 Lite Strips) #300 strips acetaminophen 325 mg tablet 650 mg (2 x 325 mg) PO Q4-6H PRN 06/05/23 (Tylenol) pain #30 tabs Allergies Allergy/AdvReac Type Severity Reaction Status Date / Time enalapril [ENALAPRIL] Allergy Intermediate Cough Verified 05/08/23 10:58 cephalexin [From KEFLEX] Allergy Mild rash Verified 05/08/23 10:58 ciprofloxacin [CIPROFLOXACIN] Allergy Mild HIVES,RASH Verified 05/08/23 10:58 levothyroxine sodium Allergy Mild RASH WITH Verified 05/08/23 10:58 [LEVOTHYROXINE SODIUM] GENERIC MED nitrofurantoin Allergy Mild RASH Verified 05/08/23 10:58 [NITROFURANTOIN] Penicillins [PENICILLINS] Allergy Mild RASH Verified 05/08/23 10:58 sulfamethoxazole Allergy Mild rash Verified 05/08/23 10:58 [From BACTRIM] trimethoprim [From BACTRIM] Allergy Mild rash Verified 05/08/23 10:58 dulaglutide [From Trulicity] AdvReac Unknown Rash Verified 05/08/23 10:58 ALL GENERIC MEDS Allergy Mild Rash Uncoded 05/08/23 10:58 SHRIMP Allergy Unknown Unknown Uncoded 05/08/23 10:58 Review of Systems Review of Systems: Constitutional : No Weight loss, No Fever, No Chills, No Fatigue, No Malaise ENT/Mouth : No sore throat, No Rhinorrhea Eyes: No Eye Pain, No Swelling, No Redness Cardiovascular : No Chest Pain, No SOB, No Dyspnea on Exertion, No Orthopnea, No Edema, No Palpitations Respiratory : No Cough, No Sputum, No Wheezing Gastrointestinal : No Nausea, No Vomiting, No Diarrhea, No Constipation, + abdominal Pain, No Hematochezia, No Melena Genitourinary : No Dysuria, No Urinary Frequency, No Hematuria, Musculoskeletal : No joint pain, No Myalgias, No Joint Swelling Skin : No Skin Lesions, No rash Neuro : No Weakness, No Numbness, No Dizziness, No Headache Psych : No Anxiety/Panic, No Depression All other systems reviewed and are negative Yes all other systems are reviewed and are negative [facility] Past Medical History Attestation statement: The following information was validated with the patient. 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 Mother Diabetes Sister Lung cancer Brother H/O heart surgery Diabetes Son Epilepsy Social History Social History Household Members: Significant Other Housing: Apartment Alcohol intake: never Patient Tobacco Use Status: Never used Tobacco e-Cigarette/Vaping Use: Never Used Second Hand Smoke Exposure: No Advance Directives: No Advance Directives Information Provided: Yes service: No Current occupational status: disabled Gender identity: Female Cognitive needs: Yes Hearing needs: No Vision needs: No Physical Exam ED Vital Signs: Vital Signs - 24 hr 06/05/23 06:48 06/05/23 07:04 Temperature 98.3 F 98.3 F Pulse Rate 73 70 Respiratory Rate 16 18 Blood Pressure 131/61 141/54 H Pulse Oximetry 98 98 Oxygen Delivery Method Room Air Room Air BMI result Body Mass Index 37.6 vss Appearance: Alert.? Oriented X3.? No acute distress.? Head: Normocephalic, atraumatic, no step-offs or deformities Eyes: Pupils equal, round and reactive to light.? ENT: Pharynx normal.? Neck: Normal inspection.? Neck supple.? CVS: Normal heart rate and rhythm.? Pulses normal.? Respiratory: No respiratory distress.? Breath sounds normal.? Abdomen: Soft and + RUQ tenderness, Negative [place]. Normoactive BS throughout .? Skin: Skin warm and dry.? Normal skin color.? Normal skin turgor.? Extremities: No lower extremity edema.? No calf ttp. 5/5 strength to bilateral upper and lower extremities Neuro: Oriented X 3.? No motor deficit.? No sensory deficit. CN 2-12 intact Course Reevaluation(s) Reevaluation #1: CBC with no acute findings. No leukocytosis or anemia noted. Chemistry unremarkable. Normal lipase. Urine clean without infection. Patient's ultrasound showing hepatic steatosis status post cholecystectomy pancreas could not be assessed however pain is not overlying left upper quadrant. Patient reports improvement of pain status post Tylenol feeling better at this time. Tolerating p.o. . Educated patient on diagnosis and treatment plan, answered all question, patient verbalizes understanding. At this time patient will be discharged home, advised to return with new or worsening symptoms. Educated on worrisome signs and symptoms and when to return. At this time I feel comfortable discharge home. Time: 08:50 Medications Administered Discontinued Medications Generic Name Dose Route Start Last Admin Trade Name Freq PRN Reason Stop Dose Admin Acetaminophen 650 mg 06/05/23 07:54 06/05/23 08:39 Acetaminophen 325 Mg Tablet PO 06/05/23 07:55 650 mg ONCE ONE Administration Medical Decision Making Medical Decision Making [facility] Narrative: 59-year-old female presents with right upper quadrant pain x4 days Physical exam significant for Soft and + RUQ tenderness, Negative [place]. Normoactive BS throughout .? Concerns for call like versus viral illnes. Unlikely acute cholecystitis, acute abdomen, obstruction, mesenteric ischemia, kidney stone. Will rule out metabolic derangements and urinary tract infection. History and physical exam not consistent with abdominal aortic dissection Plan at this time labs, right upper quadrant ultrasound, urine Differential Diagnosis Differential Diagnoses: The differential diagnosis associated with the presentation includes Concerns for call like versus viral illnes. Unlikely acute cholecystitis, acute abdomen, obstruction, mesenteric ischemia, kidney stone. Will rule out metabolic derangements and urinary tract infection. History and physical exam not consistent with abdominal aortic dissection Admission/Observation Consideration of admission/observation: Escalation of care including admission/observation considered Unlikely Lab Data [facility] Lab Attestation statement: I reviewed the patient's lab results. 06/05/23 07:12 06/05/23 07:12 Labs: Lab Results 06/05/23 06/05/23 Range/Units 07:12 07:19 WBC 6.8 (4.8-10.8) X10*3/uL RBC 4.42 (4.20-5.50) X10*6/uL Hgb 12.3 (12.0-16.0) g/dl Hct 37.5 (37.0-47.0) % MCV 84.8 (80.0-98.0) fL MCH 27.8 (27.0-33.0) pg MCHC 32.8 (31.0-35.0) g/dl RDW 12.9 (11.0-16.0) % Plt Count 195 D (160-400) X10*3/uL MPV 12.4 H (9.4-12.3) fL Immature Gran % (Auto) 0.3 (0.0-0.4) % Neut % (Auto) 52.8 (45-73) % Lymph % (Auto) 30.7 (20-40) % Cass % (Auto) 9.2 (2-11) % Eos % (Auto) 5.8 H (0-4) % Baso % (Auto) 1.2 (0-2) % Lymph # (Auto) 2.1 (1.2-4.9) X10*3/uL Cass # (Auto) 0.6 (0.1-1.2) X10*3/uL Eos # (Auto) 0.4 (0.0-0.4) X10*3/uL Baso # (Auto) 0.1 (0.0-0.2) X10*3/uL Abs Immat Gran (auto) 0.02 (0.00-0.03) X10*3/uL Absolute Neuts (auto) 3.6 (2.0-8.3) x10*3/uL Absolute Nucleated RBC 0.000 (0.0-0.012) X10*3/uL Nucleated RBC % (auto) 0.0 (0.0-0.2) /100WBC Sodium 139 (135-145) mmol/L Potassium 3.7 (3.3-5.1) mmol/L Chloride 103 (96-108) mmol/L Carbon Dioxide 28 (22-29) mmol/L Anion Gap 12 (12-20) BUN 20 H (9-16) mg/dL Creatinine 0.85 (0.5-1.4) mg/dL Estim Creat Clear Calc 80.5 Estimated GFR > 60 Random Glucose 137 H (60-115) mg/dL Calcium 9.5 (8.4-10.2) mg/dL Magnesium 1.7 (1.6-2.6) mg/dL Total Bilirubin 0.5 (0.0-1.0) mg/dL AST 26 (5-31) U/L ALT 25 (0-31) U/L Alkaline Phosphatase 100 (39-117) U/L Total Protein 7.3 (6.5-8.0) g/dL Albumin 3.7 (3.5-5.0) g/dL Lipase 25 (8-78) U/L Urine Color Yellow Urine Appearance Clear Urine pH 5.5 (5.0-9.0) Ur Specific [place] 1.015 (1.005-1.025) Urine Protein Negative (Neg-Trace) mg/dL Urine Glucose (UA) Negative (Negative) mg/dL Urine Ketones Negative (Negative) mg/dL Urine Blood Negative (Negative) Urine Nitrite Negative (Negative) Ur Leukocyte Esterase Small (1+) H (Negative) Urine RBC 0-2 (0-2) /HPF Urine WBC 21-50 H (0-5) /HPF Ur Squamous Epith Cells 3-5 (0-2) /HPF Urine Bacteria None Seen (None Seen) Hyaline Casts 0-2 (0-2) /LPF Independent Interpretation I performed an independent interpretation of an: Ultrasound Radiology Impression Discussion of test interpretation with radiology: I have reviewed the radiologist's reading. Prescription Management I considered prescription management with: Antibiotic Chronic Conditions Patient?s care impacted by: Diabetes, Hypertension and Other (Obesity) Discharge Plan Discharge Clinical Impression: Abdominal pain, RUQ Patient Disposition: Home, Self-Care Additional Instructions: Take your medications as prescribed. If you were prescribed antibiotics today, it is important that you take your medication to their entirety, do not skip any doses, do not finish them early. Follow-up with your primary care provider this week. Return to the emergency department with new or worsening symptoms. Such as fevers, chills, chest pain, shortness of breath, nausea, vomiting, dizziness, headache, vision changes, lethargy In case of emergency call 911 US/US abdomen limited IMPRESSION: 1. Hepatic steatosis. 2. Status post cholecystectomy. 3. Pancreas could not be assessed. Prescriptions: New acetaminophen [Tylenol] 325 mg tablet 650 mg PO Q4-6H PRN (Reason: pain) Qty: 30 0RF No Action hydrocortisone [Anti-Itch (HC)] 1 % cream 1 appl topical BID PRN (Reason: skin irritation) 14 Days Qty: 28.35 1RF alprazolam [Xanax] 1 mg tablet 1 - 2 mg PO ONCE Qty: 2 0RF (DME) toilet seat elevator See Rx Instructions .Route .MEDSUPPLY Qty: 1 0RF Rx Instructions: As directed (DME) lancets [FreeStyle Lancets] 28 gauge misc See Rx Instructions .ROUTE .MEDSUPPLY Qty: 300 6RF Rx Instructions: 3 times aday Aquaphor Healing 41 % ointment 1 appl topical DAILY PRN (Reason: dry skin) 14 Days Qty: 20 0RF hydrochlorothiazide 25 mg tablet 25 mg PO DAILY 90 Days Qty: 90 4RF (DME) humidifiers Misc See Rx Instructions .Route Qty: 1 0RF Rx Instructions: As directed diclofenac sodium 1 % gel 2 g topical QID 30 Days Qty: 100 4RF Rx Instructions: apply to single elbow, wrist or hand; for hand includes palm/fingers/back of hand insulin glargine [Lantus Solostar U-100 Insulin] 100 unit/mL (3 mL) insulin pen 14 unit subcut DAILY 30 Days Qty: 4.2 4RF (DME) disposable gloves [Biobrane Gloves Large] Misc See Rx Instructions .Route Qty: 100 6RF Rx Instructions: As directed (DME) adult diapers large See Rx Instructions .Route .MEDSUPPLY Qty: 240 11RF Rx Instructions: As directed (DME) underpads [Bed Underpads] Pad See Rx Instructions .Route Qty: 150 11RF Rx Instructions: Use 1 to 3 once a day prn (DME) wipes See Rx Instructions .Route .MEDSUPPLY Qty: 200 11RF Rx Instructions: As directed metformin 500 mg tablet 1,000 mg PO BID Qty: 120 4RF (DME) FreeStyle Carley 2 Sensor Kit See Rx Instructions .Route Qty: 2 11RF Rx Instructions: As directed change every 14 days tramadol 50 mg tablet 50 mg PO BID PRN (Reason: pain) Qty: 10 0RF (DME) FreeStyle [facility]ley 2 [facility] See Rx Instructions .Route Qty: 1 0RF Rx Instructions: As directed Trulicity 0.75 mg/0.5 mL pen injector 0.75 mg subcut QWEEK Qty: 2 4RF dicyclomine 20 mg tablet 20 mg PO TID 30 Days Qty: 90 1RF cyclobenzaprine 5 mg tablet 5 mg PO Q8H PRN (Reason: pain (scale score 7-10)) 5 Days Qty: 14 0RF naproxen 500 mg tablet 500 mg PO BID PRN (Reason: pain) 10 Days Qty: 20 0RF FreeStyle Lite Strips Strip 1 strip miscellaneous TID 90 Days Qty: 300 11RF lidocaine [Lidoderm] 5 % adhesive patch,medicated 1 patch topical DAILY MDD remove after 12 hours PRN (Reason: pain) Qty: 30 0RF Rx Instructions: leave on most painful area for up to 12 hrs naproxen 375 mg tablet 375 mg PO BID PRN (Reason: pain) Qty: 14 0RF triamcinolone acetonide 0.1 % cream 1 appl topical BID 10 Days Qty: 15 0RF lidocaine 5 % ointment 1 appl topical BEDTIME PRN (Reason: pain) 30 Days Qty: 30 0RF diphenhydramine HCl [Banophen] 25 mg capsule 25 mg PO BEDTIME PRN (Reason: allergic reaction) 30 Days Qty: 20 2RF acetaminophen [Tylenol Extra Strength] 500 mg tablet 500 mg PO Q6H PRN (Reason: fever or pain) 30 Days Qty: 120 2RF atorvastatin 20 mg tablet 20 mg PO DAILY 90 Days Qty: 90 2RF losartan 25 mg tablet 25 mg PO DAILY 90 Days Qty: 90 3RF omeprazole 20 mg capsule,delayed release(DR/EC) 20 mg PO QAM 90 Days Qty: 90 5RF levothyroxine [Synthroid] 175 mcg tablet 175 mcg PO lidocaine 5 % adhesive patch,medicated 1 patch topical DAILY PRN (Reason: pain) 30 Days Qty: 30 1RF Rx Instructions: leave on most painful area for up to 12 hrs escitalopram oxalate 10 mg tablet 10 mg PO DAILY mirabegron 25 mg tablet extended release 24 hr 25 mg PO DAILY clobetasol 0.05 % ointment 1 appl topical DAILY Rx Instructions: Use daily for 2 weeks, then every other day for 2 wks, then twice a week docusate sodium 100 mg capsule 100 mg PO DAILY azelastine 137 mcg (0.1 %) aerosol,spray 1 spray intranasal BID betamethasone valerate 0.1 % cream 1 appl topical BID ketotifen fumarate 0.025 % (0.035 %) drops 0 drp ophthalmic (eye) tacrolimus 0.1 % ointment topical triamcinolone acetonide 0.025 % cream topical Trulance 3 mg tablet 3 mg PO DAILY Qty: 30 6RF ramelteon 8 mg tablet 8 mg PO DAILY diphenhydramine HCl [Banophen] 25 mg tablet 25 mg PO BEDTIME PRN (Reason: allergies) pen needle, diabetic [BD Ultra-Fine Aarti Pen Needle] 32 gauge x 5/32 needle 1 ea subcut DAILY Qty: 30 11RF Referrals: Yael Alex MD [Primary Care Provider] - 2 days
[2023-06-05 06:47] VITALS: BP 176/84; PULSE 70; O2SAT 98
[2023-06-05 06:48] VITALS: BP 131/61; PULSE 73; RESP 16; TEMP 36.8; O2SAT 98; BMI 37.6
[2023-06-05 07:04] VITALS: BP 141/54; PULSE 70; RESP 18; TEMP 36.8; O2SAT 98
[2023-06-05 07:25] LABS: MANUAL DIFF FLAG NO
[2023-06-05 07:27] LABS: Basophils Absolute Auto 0.1 X10*3/uL (0.0-0.2); Basophils Percent Auto 1.2 % (0-2); Eosinophils Absolute Auto 0.4 X10*3/uL (0.0-0.4); Eosinophils Percent Auto 5.8 % (0-4); Hematocrit 37.5 % (37.0-47.0); Hemoglobin 12.3 g/dl (12.0-16.0); Imm Gran Abs Auto 0.02 X10*3/uL (0.00-0.03); Imm Gran Pct Auto 0.3 % (0.0-0.4); Lymphocytes Absolute Auto 2.1 X10*3/uL (1.2-4.9); Lymphocytes Percent Auto 30.7 % (20-40); Mean Corpuscular HGB Conc 32.8 g/dl (31.0-35.0); Mean Corpuscular Hemoglobin 27.8 pg (27.0-33.0); Mean Corpuscular Volume 84.8 fL (80.0-98.0); Mean Platelet Volume 12.4 fL (9.4-12.3); Monocytes Absolute Auto 0.6 X10*3/uL (0.1-1.2); Monocytes Percent Auto 9.2 % (2-11); Neutrophils Absolute Auto 3.6 x10*3/uL (2.0-8.3); Neutrophils Percent Auto 52.8 % (45-73); Platelet Count 195 X10*3/uL (160-400); Red Blood Count 4.42 X10*6/uL (4.20-5.50); Red Cell Distribution Width 12.9 % (11.0-16.0); White Blood Count 6.8 X10*3/uL (4.8-10.8)
[2023-06-05 07:30] LABS: Appearance Urine Clear; Color Urine Yellow; Glucose Urine UA Negative (Negative); Leukocyte Esterase Urine Small (1+) (Negative); Nitrite Urine Negative (Negative); PH 5.5 (5.0-9.0); Specific Gravity - Urine 1.015 (1.005-1.025); UMIC TRIGGER UACC YES; Urine Blood Negative (Negative); Urine Ketones Negative (Negative); Urine Protein Negative (Neg-Trace)
[2023-06-05 07:32] LABS: Bacteria Urine None Seen (None Seen); Hyaline Casts Urine 0-2 /LPF (0-2); RBC Urine 0-2 /HPF (0-2); UACC Culture Trigger YES; WBC Urine 21-50 /HPF (0-5)
[2023-06-05 07:42] LABS: Alanine Aminotransferase 25 U/L (0-31); Albumin Level 3.7 g/dL (3.5-5.0); Alkaline Phosphatase 100 U/L (39-117); Anion Gap 12 (12-20); Aspartate Amino Transferase 26 U/L (5-31); Bilirubin Total 0.5 mg/dL (0.0-1.0); Blood Urea Nitrogen 20 mg/dL (9-16); Calcium 9.5 mg/dL (8.4-10.2); Carbon Dioxide 28 mmol/L (22-29); Chloride 103 mmol/L (96-108); Creatinine Clr Calc Pharmacy 80.5; Estimated Glomerular Filt Rate > 60; Glucose Random 137 mg/dL (60-115); Lipase 25 U/L (8-78); Magnesium 1.7 mg/dL (1.6-2.6); Potassium 3.7 mmol/L (3.3-5.1); Sodium 139 mmol/L (135-145); Total Protein 7.3 g/dL (6.5-8.0)
[2023-06-05] MEDS: Acetaminophen 325 MG TABLET 650 MG PO (08:39)
[2023-06-05 09:07] VITALS: BP 125/68; PULSE 68; RESP 16; TEMP 36.6; O2SAT 99
== END 2023-06-05 09:32 | disposition home or self-care (01) ==
PROVIDERS: Physician Assistant; Emergency Provider Student in an Organized Health Care Education/Training Program; PCP Internal Medicine
DX: R10.11 Right upper quadrant pain (principal); E11.9 Type 2 diabetes mellitus without complications; I10 Essential (primary) hypertension; E78.5 Hyperlipidemia, unspecified; C73 Malignant neoplasm of thyroid gland; Z79.4 Long term (current) use of insulin; Z79.899 Other long term (current) drug therapy
CPT/HCPCS: 36415; 76705; 80053; 81001; 83690; 83735; 85025; 87086; 99283; 99284

== ENCOUNTER 2023-06-14 09:31 | Emergency (ER) | payer OTHER, SELFPAY ==
--- NOTE | 2023-06-14 09:47 | PC.NURSE ---
awaiting lens assorter- they have been called, [facility] will take pt back to room untriaged if lens assorter doesnt arrive shortly
[2023-06-14 09:57] VITALS: BP 148/66; PULSE 73; RESP 18; TEMP 37.2; O2SAT 96; BMI 40.6
--- NOTE | 2023-06-14 10:14 | ED_ITS ---
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 Admits to accidentally burning herself with hot oil while cooking 4 days ago. Reports immediate pain to the area. States that she has been putting OTC neosporin on her arm however they have been worsening . Reports itching to the area and discomfort when water touches the area while taking a shower. Denies fever, chills, nausea/vomiting, numbness tingling or weakness of the right upper extremity. Denies davidson elsewhere. Related Data Home Medications Medication Instructions Recorded Confirmed escitalopram oxalate 10 mg tablet 10 mg PO DAILY 06/26/20 05/08/23 mirabegron 25 mg tablet,extended 25 mg PO DAILY 12/15/20 05/08/23 release 24 hr clobetasol 0.05 % topical ointment 1 appl topical DAILY 04/02/22 05/08/23 azelastine 137 mcg (0.1 %) nasal 1 spray intranasal BID 07/02/22 05/08/23 spray aerosol betamethasone valerate 0.1 % 1 appl topical BID 07/02/22 05/08/23 topical cream docusate sodium 100 mg capsule 100 mg PO DAILY 07/02/22 05/08/23 ketotifen fumarate 0.025 % (0.035 0 drp ophthalmic (eye) 07/02/22 05/08/23 %) eye drops levothyroxine 175 mcg tablet 175 mcg PO 07/31/22 05/08/23 (Synthroid) tacrolimus 0.1 % topical ointment topical 11/26/22 05/08/23 triamcinolone acetonide 0.025 % appl topical 11/26/22 05/08/23 topical cream ramelteon 8 mg tablet 8 mg PO DAILY 12/27/22 05/08/23 diphenhydramine HCl 25 mg tablet 25 mg PO BEDTIME PRN allergies 03/28/23 05/08/23 (Banophen) Previous Rx's Medication Instructions Recorded triamcinolone acetonide 0.1 % 1 appl topical BID rash 10 days 08/21/20 topical cream #15 grams hydrocortisone 1 % topical cream 1 appl topical BID PRN skin 09/01/20 (Anti-Itch (hydrocortisone)) irritation 14 days #28.35 grams alprazolam 1 mg tablet (Xanax) 1 - 2 mg (1 - 2 x 1 mg) PO ONCE To 03/20/21 be taken 1 hour before MRI #2 tabs toilet seat elevator #1 ea 04/10/21 lancets 28 gauge (FreeStyle #300 ea 10/16/21 Lancets) white petrolatum 41 % topical 1 appl topical DAILY PRN dry skin 10/31/21 ointment (Aquaphor Healing) 2 weeks #20 grams omeprazole 20 mg capsule,delayed 20 mg PO QAM 90 days #90 caps 05/23/22 release lidocaine 5 % topical ointment 1 appl topical BEDTIME PRN pain 30 07/08/22 days #30 grams humidifiers #1 ea 07/12/22 diclofenac sodium 1 % topical gel 2 g topical QID 1 month #100 grams 09/03/22 lidocaine 5 % topical patch 1 patch topical DAILY PRN pain #30 11/12/22 (Lidoderm) ea plecanatide 3 mg tablet (Trulance) 3 mg PO DAILY #30 tabs 11/15/22 insulin glargine 100 unit/mL (3 14 unit (0.14 mL) subcut DAILY 30 11/28/22 mL) subcutaneous pen (Lantus days #4.2 mL Solostar U-100 Insulin) acetaminophen 500 mg tablet 500 mg PO Q6H PRN fever or pain 30 12/31/22 (Tylenol Extra Strength) days #120 tabs atorvastatin 20 mg tablet 20 mg PO DAILY 90 days #90 tabs 12/31/22 diphenhydramine HCl 25 mg capsule 25 mg PO BEDTIME PRN allergic 12/31/22 (Banophen) reaction 30 days #20 caps disposable gloves (Biobrane Gloves #100 ea 12/31/22 Large) losartan 25 mg tablet 25 mg PO DAILY 90 days #90 tabs 12/31/22 adult diapers #240 ea 01/07/23 underpads (Bed Underpads) #150 ea 01/07/23 wipes #200 ea 01/07/23 metformin 500 mg tablet 1,000 mg (2 x 500 mg) PO BID #120 01/13/23 tabs pen needle, diabetic 32 gauge x 1 ea subcut DAILY #30 ea 03/28/23 (BD Ultra-Fine Aarti Pen Needle) flash glucose sensor (FreeStyle #2 ea 04/08/23 Carley 2 Sensor kit) tramadol 50 mg tablet 50 mg PO BID PRN pain #10 tabs 04/09/23 flash glucose scanning reader #1 ea 04/23/23 (FreeStyle Carley 2 [place]) dulaglutide 0.75 mg/0.5 mL 0.75 mg (0.5 mL) subcut QWEEK #2 mL 04/28/23 subcutaneous pen injector ([facility]) dicyclomine 20 mg tablet 20 mg PO TID 30 days #90 tabs 05/01/23 naproxen 375 mg tablet 375 mg PO BID PRN pain #14 tabs 05/02/23 lidocaine 5 % topical patch 1 patch topical DAILY PRN pain 30 05/08/23 days #30 ea cyclobenzaprine 5 mg tablet 5 mg PO Q8H PRN pain (scale score 05/12/23 7-10) 5 days #14 tabs naproxen 500 mg tablet 500 mg PO BID PRN pain 10 days #20 05/12/23 tabs blood sugar diagnostic (FreeStyle 1 strip miscellaneous TID 90 days 06/04/23 Lite Strips) #300 strips acetaminophen 325 mg tablet 650 mg (2 x 325 mg) PO Q4-6H PRN 06/05/23 (Tylenol) pain #30 tabs hydrochlorothiazide 25 mg tablet 25 mg PO DAILY 90 days #90 tabs 06/11/23 Allergies Allergy/AdvReac Type Severity Reaction Status Date / Time enalapril [ENALAPRIL] Allergy Intermediate Cough Verified 05/08/23 10:58 cephalexin [From KEFLEX] Allergy Mild rash Verified 05/08/23 10:58 ciprofloxacin [CIPROFLOXACIN] Allergy Mild HIVES,RASH Verified 05/08/23 10:58 levothyroxine sodium Allergy Mild RASH WITH Verified 05/08/23 10:58 [LEVOTHYROXINE SODIUM] GENERIC MED nitrofurantoin Allergy Mild RASH Verified 05/08/23 10:58 [NITROFURANTOIN] Penicillins [PENICILLINS] Allergy Mild RASH Verified 05/08/23 10:58 sulfamethoxazole Allergy Mild rash Verified 05/08/23 10:58 [From BACTRIM] trimethoprim [From BACTRIM] Allergy Mild rash Verified 05/08/23 10:58 dulaglutide [From Trulicity] AdvReac Unknown Rash Verified 05/08/23 10:58 ALL GENERIC MEDS Allergy Mild Rash Uncoded 05/08/23 10:58 SHRIMP Allergy Unknown Unknown Uncoded 05/08/23 10:58 Review of Systems 2 Review of Systems: Constitutional: No fever, chills, fatigue, night sweats, weight changes ENT/Mouth: No ear pain, hearing loss, nasal congestion, sinus pain, rhinorrhea, sore throat Eyes: No eye pain, swelling, redness, vision changes, discharge Cardio: No chest pain, palpitations, MARAVILLA, orthopnea, peripheral edema Pulm: No SOB, cough, sputum, wheezing, dyspnea, hemoptysis GI: No nausea, vomiting, hematemesis, abdominal pain, diarrhea, constipation, hematochezia, melena : No irregular bleeding, dysuria, frequency, urgency, hesitancy, hematuria, flank pain, urinary flow changes, urinary incontinence or retention MSK: No back pain, neck pain, joint pain, myalgias Skin: No lesions, rashes, +burn to RUE Neuro: No weakness, numbness, paresthesias, LOC, dizziness, headache All other systems reviewed and are negative. [facility] Past Medical History Attestation statement: The following information was validated with the patient. 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 Mother Diabetes Sister Lung cancer Brother H/O heart surgery Diabetes Son Epilepsy Social History Social History Household Members: Significant Other Housing: Apartment Alcohol intake: never Patient Tobacco Use Status: Never used Tobacco e-Cigarette/Vaping Use: Never Used Second Hand Smoke Exposure: No Advance Directives: Yes Advance Directives Information Provided: Yes Advance Directives on File: No service: No Current occupational status: disabled Gender identity: Female Cognitive needs: Yes Hearing needs: No Vision needs: No Physical Exam ED Vital Signs: Vital Signs - 24 hr 06/14/23 09:57 Temperature 98.9 F Pulse Rate 73 Respiratory Rate 18 Blood Pressure 148/66 H Pulse Oximetry 96 Oxygen Delivery Method Room Air BMI result Body Mass Index 40.6 Vital signs stable, afebrile Const General: cooperative, comfortable, no acute distress, alert and awake Nutritional Appearance: obese Orientation/consciousness: patient oriented x3 Limitations: no limitations HENMT Ears: hearing grossly normal bilaterally Eyes General: appearance normal, both eyes and all related structures Neck Neck: Yes normal visual inspection Resp Effort & Inspection: normal respiratory effort Auscultation: clear to auscultation bilaterally Cardio Rate: regular rate Rhythm: regular rhythm Peripheral pulses: radial pulses present and ulnar radial pulses present Skin Other: + Refer to images below + Multiple superficial partial thickness burn smart noted the dorsal aspect of the right forearm. Not circumferential. No blistering or sloughing. No involvement of underlying structures. No palpable warmth, induration, or fluctuance. TTP overlying the burn smart. Sensation intact to light tough throughout. 2+ radial and ulnar pulses. + There are numerous healed self-harm smart noted to dorsal and ventral right forearm. Neuro General: patient oriented x3, gait normal and moves all extremities Cranial nerves: Yes CN's II-XII intact bilaterally Extrem General: Yes normal exam except as noted Course Course Course Narrative: Patient's presentation is consistent with superficial, healing burn smart. There are no signs of developing cellulitis or abscess. Her vital signs stable. Will place a non-adherent dressing to the forearm. Advised patient that she may continue to use bacitracin as needed however this is part of the normal healing process. Discussed strict return precautions. All questions answered at this time. Patient is agreeable with disposition and stable for discharge. Medications Administered Discontinued Medications Generic Name Dose Route Start Last Admin Trade Name Freq PRN Reason Stop Dose Admin Bacitracin 1 appl 06/14/23 10:50 06/14/23 11:10 Bacitracin Oint 0.9 Gm Packet TOPICAL 06/14/23 10:51 1 appl ONCE ONE Administration Protocol Medical Decision Making Medical Decision Making MDM Narrative: 67 year old female with pmhx significant for T2DM (controlled with meds), GERD, hypothyroidism, thyroid cancer s/p thyroidectomy, HTN, HDL, anxiety and depression presents to the ED today with davidson to left forearm. Vital signs stable. Patient is nontoxic appearing, in NAD. On exam there are multiple superficial partial thickness burn smart noted the dorsal aspect of the right forearm. Not circumferential. No blistering or sloughing. No involvement of underlying structures. No palpable warmth, induration, or fluctuance. TTP overlying the burn smart. Sensation intact to light tough throughout. 2+ radial and ulnar pulses. Clinical concern for small superficial partial thickness burn in healing stages. Unlikely cellulitis, abscess, threat to limb, NV compromise. Plan at this time is wound dressing and re-evaluation. Differential Diagnosis Differential Diagnoses: The differential diagnosis associated with the presentation includes As above. Admission/Observation Not indicated. External Record Review External record reviewed: Inpatient record Prescription Management I considered prescription management with: Pain Medication Chronic Conditions Patient?s care impacted by: Diabetes Critical Care Time Critical Care Time Critical Care Time: No Discharge Plan Discharge Clinical Impression: Superficial burn of right forearm Patient Disposition: Home, Self-Care Instructions: Superficial Burn (ED) Additional Instructions: You have a superficial burn to your right forearm that is in the process of healing. You may experience itching or discomfort over the next couple of weeks as it heals. Continue using Neosporin at home. You may also come for area with wrap and gauze. This does not require antibiotics today. You may take Tylenol and ibuprofen as needed at home for pain. Please follow-up with your primary care provider. Return to the emergency department if you develop fever or worsening symptoms. The case of an emergency call 911. Tiene telma quemadura superficial en el antebrazo derecho que est? en proceso de curaci?n. Es posible que experimente picaz?n o malestar osmin las pr?ximas semanas a medida que sirisha. Contin?e usando Neosporin en casa. Tambi?n podr? acudir a negra con faja y gasa. [place] no requiere antibi?ticos hoy. Puede kraig Tylenol e ibuprofeno en casa seg?n sea necesario para el dolor. Nenita un seguimiento con snyder proveedor de atenci?n primaria. Regrese al departamento de emergencias si presenta fiebre o empeoran los s?ntomas. El terra de telma llamada de emergencia al 911. Prescriptions: No Action hydrocortisone [Anti-Itch (HC)] 1 % cream 1 appl topical BID PRN (Reason: skin irritation) 14 Days Qty: 28.35 1RF alprazolam [Xanax] 1 mg tablet 1 - 2 mg PO ONCE Qty: 2 0RF (DME) toilet seat elevator See Rx Instructions .Route .MEDSUPPLY Qty: 1 0RF Rx Instructions: As directed (DME) lancets [FreeStyle Lancets] 28 gauge misc See Rx Instructions .ROUTE .MEDSUPPLY Qty: 300 6RF Rx Instructions: 3 times aday Aquaphor Healing 41 % ointment 1 appl topical DAILY PRN (Reason: dry skin) 14 Days Qty: 20 0RF (DME) humidifiers Misc See Rx Instructions .Route Qty: 1 0RF Rx Instructions: As directed diclofenac sodium 1 % gel 2 g topical QID 30 Days Qty: 100 4RF Rx Instructions: apply to single elbow, wrist or hand; for hand includes palm/fingers/back of hand insulin glargine [Lantus Solostar U-100 Insulin] 100 unit/mL (3 mL) insulin pen 14 unit subcut DAILY 30 Days Qty: 4.2 4RF (DME) disposable gloves [Biobrane Gloves Large] Misc See Rx Instructions .Route Qty: 100 6RF Rx Instructions: As directed (DME) adult diapers large See Rx Instructions .Route .MEDSUPPLY Qty: 240 11RF Rx Instructions: As directed (DME) underpads [Bed Underpads] Pad See Rx Instructions .Route Qty: 150 11RF Rx Instructions: Use 1 to 3 once a day prn (DME) wipes See Rx Instructions .Route .MEDSUPPLY Qty: 200 11RF Rx Instructions: As directed metformin 500 mg tablet 1,000 mg PO BID Qty: 120 4RF (DME) FreeStyle Carley 2 Sensor Kit See Rx Instructions .Route Qty: 2 11RF Rx Instructions: As directed change every 14 days tramadol 50 mg tablet 50 mg PO BID PRN (Reason: pain) Qty: 10 0RF (DME) FreeStyle Carley 2 [place] Misc See Rx Instructions .Route Qty: 1 0RF Rx Instructions: As directed Trulicity 0.75 mg/0.5 mL pen injector 0.75 mg subcut QWEEK Qty: 2 4RF dicyclomine 20 mg tablet 20 mg PO TID 30 Days Qty: 90 1RF cyclobenzaprine 5 mg tablet 5 mg PO Q8H PRN (Reason: pain (scale score 7-10)) 5 Days Qty: 14 0RF naproxen 500 mg tablet 500 mg PO BID PRN (Reason: pain) 10 Days Qty: 20 0RF FreeStyle Lite Strips Strip 1 strip miscellaneous TID 90 Days Qty: 300 11RF hydrochlorothiazide 25 mg tablet 25 mg PO DAILY 90 Days Qty: 90 4RF lidocaine [Lidoderm] 5 % adhesive patch,medicated 1 patch topical DAILY MDD remove after 12 hours PRN (Reason: pain) Qty: 30 0RF Rx Instructions: leave on most painful area for up to 12 hrs naproxen 375 mg tablet 375 mg PO BID PRN (Reason: pain) Qty: 14 0RF acetaminophen [Tylenol] 325 mg tablet 650 mg PO Q4-6H PRN (Reason: pain) Qty: 30 0RF triamcinolone acetonide 0.1 % cream 1 appl topical BID 10 Days Qty: 15 0RF lidocaine 5 % ointment 1 appl topical BEDTIME PRN (Reason: pain) 30 Days Qty: 30 0RF diphenhydramine HCl [Banophen] 25 mg capsule 25 mg PO BEDTIME PRN (Reason: allergic reaction) 30 Days Qty: 20 2RF acetaminophen [Tylenol Extra Strength] 500 mg tablet 500 mg PO Q6H PRN (Reason: fever or pain) 30 Days Qty: 120 2RF atorvastatin 20 mg tablet 20 mg PO DAILY 90 Days Qty: 90 2RF losartan 25 mg tablet 25 mg PO DAILY 90 Days Qty: 90 3RF omeprazole 20 mg capsule,delayed release(DR/EC) 20 mg PO QAM 90 Days Qty: 90 5RF levothyroxine [Synthroid] 175 mcg tablet 175 mcg PO lidocaine 5 % adhesive patch,medicated 1 patch topical DAILY PRN (Reason: pain) 30 Days Qty: 30 1RF Rx Instructions: leave on most painful area for up to 12 hrs escitalopram oxalate 10 mg tablet 10 mg PO DAILY mirabegron 25 mg tablet extended release 24 hr 25 mg PO DAILY clobetasol 0.05 % ointment 1 appl topical DAILY Rx Instructions: Use daily for 2 weeks, then every other day for 2 wks, then twice a week docusate sodium 100 mg capsule 100 mg PO DAILY azelastine 137 mcg (0.1 %) aerosol,spray 1 spray intranasal BID betamethasone valerate 0.1 % cream 1 appl topical BID ketotifen fumarate 0.025 % (0.035 %) drops 0 drp ophthalmic (eye) tacrolimus 0.1 % ointment topical triamcinolone acetonide 0.025 % cream topical Trulance 3 mg tablet 3 mg PO DAILY Qty: 30 6RF ramelteon 8 mg tablet 8 mg PO DAILY diphenhydramine HCl [Banophen] 25 mg tablet 25 mg PO BEDTIME PRN (Reason: allergies) pen needle, diabetic [BD Ultra-Fine Aarti Pen Needle] 32 gauge x 5/32 needle 1 ea subcut DAILY Qty: 30 11RF Referrals: Yael Alex MD [Primary Care Provider] - Interventions: ED Discharge Assessment Last Done: 06/14/23 11:11 Discharge Date/Time: 06/14/23 11:11 Print Language: Nepalese
[2023-06-14] MEDS: Bacitracin Oint 0.9 GM PACKET 1 APPL TOPICAL (11:10)
== END 2023-06-14 11:11 | disposition home or self-care (01) ==
PROVIDERS: Emergency Provider Emergency Medicine; PCP Internal Medicine
DX: T22.211A Burn of second degree of right forearm, initial encounter (principal); X10.2XXA Contact with fats and cooking oils, initial encounter; Y93.G3 Activity, cooking and baking; Y92.9 Unspecified place or not applicable; Y99.9 Unspecified external cause status; E11.9 Type 2 diabetes mellitus without complications; I10 Essential (primary) hypertension; E78.5 Hyperlipidemia, unspecified
CPT/HCPCS: 99282; 99283

== ENCOUNTER 2023-06-17 08:56 | Outpatient (AMB) | payer OTHER, SELFPAY ==
[2023-06-17 09:25] VITALS: BP 140/82; PULSE 70; RESP 18; O2SAT 97
--- NOTE | 2023-06-17 09:25 | AM.OFFWIN_ITS ---
Intake Vital Signs 06/17/23 09:25 Height 5 ft 4 in BP 140/82 H Blood Pressure Location Lt brachial Position Sitting Respiration 18 Pulse 70 Pulse Source Pulse Oximeter Pulse Oximetry (%) 97 Oxygen Delivery Method Room Air Intake Visit Reasons: DM w/ Hand blister now bleeding Intake Note: Patient is here with a hand blister from burn, now bleeding, was seen in ED, they told her to keep putting antibiotic ointment on it, and bandaged it, and it's still bleeding, she is still in ppain, and states it's very itchy. She is also complaining of pain in her foot due to a small piece of glass in there. Patient Tobacco Use Status: Never used Tobacco Allergies enalapril [ENALAPRIL] Allergy (Intermediate, Verified 06/17/23 09:58) Cough cephalexin [From KEFLEX] Allergy (Mild, Verified 06/17/23 09:58) rash ciprofloxacin [CIPROFLOXACIN] Allergy (Mild, Verified 06/17/23 09:58) HIVES,RASH levothyroxine sodium [LEVOTHYROXINE SODIUM] Allergy (Mild, Verified 06/17/23 09:58) RASH WITH GENERIC MED nitrofurantoin [NITROFURANTOIN] Allergy (Mild, Verified 06/17/23 09:58) RASH Penicillins [PENICILLINS] Allergy (Mild, Verified 06/17/23 09:58) RASH sulfamethoxazole [From BACTRIM] Allergy (Mild, Verified 06/17/23 09:58) rash trimethoprim [From BACTRIM] Allergy (Mild, Verified 06/17/23 09:58) rash dulaglutide [From Trulicity] Adverse Reaction (Unknown, Verified 06/17/23 09:58) Rash ALL GENERIC MEDS Allergy (Mild, Uncoded 06/17/23 09:58) Rash SHRIMP Allergy (Unknown, Uncoded 06/17/23 09:58) Unknown Medication List - Last Reconciled 06/17/23 by Vikash Irvin MD acetaminophen (Tylenol) 650 mg (2 x 325 mg) PO Q4-6H PRN acetaminophen (Tylenol Extra Strength) 500 mg PO Q6H PRN 30 days [adult diapers As directed] alprazolam (Xanax) 1 - 2 mg (1 - 2 x 1 mg) PO ONCE atorvastatin 20 mg PO DAILY 90 days azelastine 1 spray intranasal BID betamethasone valerate 0.1% 1 appl topical BID blood sugar diagnostic (FreeStyle Lite Strips) 1 strip miscellaneous TID 90 days clobetasol 0.05% 1 appl topical DAILY cyclobenzaprine 5 mg PO Q8H PRN 5 days diclofenac sodium 1% 2 grams topical QID 1 month dicyclomine 20 mg PO TID 30 days diphenhydramine HCl (Banophen) 25 mg PO BEDTIME PRN 30 days diphenhydramine HCl (Banophen) 25 mg PO BEDTIME PRN disposable gloves (Biobrane Gloves Large) As directed docusate sodium 100 mg PO DAILY dulaglutide (Trulicity) 0.75 mg (0.5 mL) subcut QWEEK escitalopram oxalate 10 mg PO DAILY flash glucose scanning reader (naaptolyle Carley 2 [place]) As directed flash glucose sensor (Built InStyle Carley 2 Sensor kit) As directed change every 14 days humidifiers As directed hydrochlorothiazide 25 mg PO DAILY 90 days NS hydrocortisone 1% (Anti-Itch (hydrocortisone)) 1 appl topical BID PRN 14 days insulin glargine (Lantus Solostar U-100 Insulin) 14 units (0.14 mL) subcut DAILY 30 days ketotifen fumarate 0.025%(0.035%) 0 drps ophthalmic (eye) lancets (FreeStyle Lancets) 3 times aday levothyroxine (Synthroid) 175 mcg PO lidocaine 5% (Lidoderm) 1 patch topical DAILY PRN MDD remove after 12 hours lidocaine 5% 1 appl topical BEDTIME PRN 30 days lidocaine 5% 1 patch topical DAILY PRN 30 days losartan 25 mg PO DAILY 90 days metformin 1,000 mg (2 x 500 mg) PO BID mirabegron ER 25 mg PO DAILY naproxen 375 mg PO BID PRN naproxen 500 mg PO BID PRN 10 days omeprazole 20 mg PO QAM 90 days NS pen needle, diabetic (BD Ultra-Fine Aarti Pen Needle) 1 ea subcut DAILY plecanatide (Trulance) 3 mg PO DAILY ramelteon 8 mg PO DAILY tacrolimus 0.1% topical [toilet seat elevator As directed] tramadol 50 mg PO BID PRN triamcinolone acetonide 0.1% 1 appl topical BID 10 days triamcinolone acetonide 0.025% appl topical underpads (Bed Underpads) Use 1 to 3 once a day prn white petrolatum 41% (Aquaphor Healing) 1 appl topical DAILY PRN 2 weeks [wipes As directed] Do you need a note to return to daycare/school/sports/work: No HPI DM w/ Hand blister now bleeding HPI Details 67-year-old female presents to the [facility] for a sick visit. 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 Patient has a superficial burn on her right forearm. She has been seen in the emergency room and provided with topical cream. Patient reports she is having some itching and discomfort. Patient also believes she has a foreign body in the left foot from the past. She was seen by a specialist at [facility] (formerly [facility]3] and was asked to follow- up with her primary care. 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 Mother Diabetes Sister Lung cancer Brother H/O heart surgery Diabetes Son Epilepsy Household Members: Significant Other Housing: Apartment Alcohol intake: never Patient Tobacco Use Status: Never used Tobacco e-Cigarette/Vaping Use: Never Used Second Hand Smoke Exposure: No service: No Current occupational status: disabled Gender identity: Female Cognitive needs: Yes Hearing needs: No Vision needs: No Female Reproductive History Menstrual Age of Menarche: 13 Physical Exam Vital Signs: Last Vital Signs Pulse 70 06/17/23 09:25 Resp 18 06/17/23 09:25 BP 140/82 H 11/21/23 09:25 Pulse Ox 97 06/17/23 09:25 Oxygen Delivery Method Room Air 06/17/23 09:25 Skin Other: Right forearm: Superficial burn areas. No evidence of infection. Assessment & Plan Assessment & Plan (1) Superficial burn of right forearm: Code(s): T22.111A - Burn of first degree of right forearm, initial encounter Plan: Silvadene ointment prescribed. Keep the area open. I advised the patient to see the primary care provider regarding her foreign body. X-ray of the foot done in April in this facility did not show any foreign body. The wound on the foot was not examined during this visit. Coding Level of Care Code Est Pt Level 3 (12171) Diagnoses Superficial burn of right forearm T22.111A
== END 2023-06-17 10:14 | disposition home or self-care (01) ==
PROVIDERS: PCP Internal Medicine; Visit Provider Internal Medicine
DX: T22.111A Burn of first degree of right forearm, initial encounter (principal)
CPT/HCPCS: 99213

== ENCOUNTER 2023-09-22 09:27 | Outpatient (REF) | payer OTHER, SELFPAY ==
[2023-09-22 11:00] LABS: Alanine Aminotransferase 30 U/L (0-31); Albumin Level 3.9 g/dL (3.5-5.0); Alkaline Phosphatase 93 U/L (39-117); Anion Gap 10 (12-20); Aspartate Amino Transferase 31 U/L (5-31); Bilirubin Total 0.4 mg/dL (0.0-1.0); Blood Urea Nitrogen 18 mg/dL (9-16); Carbon Dioxide 31 mmol/L (22-29); Chloride 105 mmol/L (96-108); Cholesterol 161 mg/dL (<200); Estimated Glomerular Filt Rate > 60; Glucose Fasting 127 mg/dL (60-99); HDL Cholesterol 46 mg/dL (>40); LDL Cholesterol Calculated 100 mg/dL (<100); Potassium 3.8 mmol/L (3.3-5.1); Sodium 142 mmol/L (135-145); Total Protein 7.6 g/dL (6.5-8.0); Triglycerides 77 mg/dL (<150)
[2023-09-22 11:19] LABS: Thyroid Stimulating Hormone 1.34 uIU/mL (0.32-4.0); Vitamin D 25-OH Total 36.8 ng/mL (>30)
[2023-09-22 11:42] LABS: Creatinine Urine 130.34 mg/dL; Microalbum/Creatinine Ratio Ur 6.1 ug/mg cr (<30)
== END 2023-09-22 09:28 | disposition home or self-care (01) ==
LOC: HO.LAB 09:27
PROVIDERS: PCP Internal Medicine; Visit Provider Internal Medicine
DX: E55.9 Vitamin D deficiency, unspecified (principal); E11.9 Type 2 diabetes mellitus without complications; E03.9 Hypothyroidism, unspecified; E78.5 Hyperlipidemia, unspecified; Z79.4 Long term (current) use of insulin
CPT/HCPCS: 36415; 80053; 80061; 82043; 82306; 82570; 84443

== ENCOUNTER 2023-09-25 09:45 | Outpatient (AMB) | payer OTHER, SELFPAY ==
[2023-09-25 09:50] VITALS: BP 116/80; PULSE 70; BMI 39.7
--- NOTE | 2023-09-25 09:50 | MHC.OFFVIS ---
Intake Vital Signs 09/25/23 09:50 Height 5 ft 4 in Weight 231 lb 4.238 oz BMI 39.7 BP 116/80 Blood Pressure Location Lt brachial Position Sitting Pulse 70 Pulse Source Pulse Oximeter Intake Visit Reasons: f/u Type 2 DM Intake Note: Patient presents today to follow up on D2MT. Last Diabetic Eye exam:05/2023 Last Podiatry Visit:Doesn't have one Random Glucose: 127 mg/dl HgA1c: 7.3% Architectural Draftsman Required: Yes Architectural Draftsman Language: Milk Of Lime Slaker Name: [facility] medical staff Information Interpreted: non-clinical & clinical Accompanied by: Self / Same As Patient Allergies enalapril [ENALAPRIL] Allergy (Intermediate, Verified 09/25/23 09:56) Cough cephalexin [From KEFLEX] Allergy (Mild, Verified 09/25/23 09:56) rash ciprofloxacin [CIPROFLOXACIN] Allergy (Mild, Verified 09/25/23 09:56) HIVES,RASH levothyroxine sodium [LEVOTHYROXINE SODIUM] Allergy (Mild, Verified 09/25/23 09:56) RASH WITH GENERIC MED nitrofurantoin [NITROFURANTOIN] Allergy (Mild, Verified 09/25/23 09:56) RASH Penicillins [PENICILLINS] Allergy (Mild, Verified 09/25/23 09:56) RASH sulfamethoxazole [From BACTRIM] Allergy (Mild, Verified 09/25/23 09:56) rash trimethoprim [From BACTRIM] Allergy (Mild, Verified 09/25/23 09:56) rash dulaglutide [From Trulicity] Adverse Reaction (Unknown, Verified 09/25/23 09:56) Rash ALL GENERIC MEDS Allergy (Mild, Uncoded 09/25/23 09:56) Rash SHRIMP Allergy (Unknown, Uncoded 09/25/23 09:56) Unknown HPI HPI Comments History of Present Illness Details Patient is 67-year-old female with DM type 2 diagnosed 2012 , who presents for management of diabetes. Past medical history: Diabetes type 2, hypertension, hyperlipidemia, hx thyroid cancer (pappillary thyroid ca), hypothyroidism, GERD Micro and macrovascular complications: None known Diabetes medications: Lantus 14 units metformin 2 pills of 500 mg twice a day, Trulicity1.5 mg/week. Intolerant of Jardiance due to uncontrollable urination and diarrhea. Symptoms reported: denies numbness, tingling, cramping in lower extremities Hypoglycemia: denies Hyperglycemia: + urinary frequency, +nocturia, polydypsia Unfortunately, patient did not bring log book or glucometer follow-up visit Exerci se: limited due to walking with cane Digital Asset Coordinator - CDE education: in past but not recently Youth Director: denies Dental exam: edentulous Ophthalmology evaluation: needs to make appt no retinopathy. Last appt has appt in Other specialists: Electrical Line Mechanic Laboratory Tests 07/12/21 07/12/21 07/12/21 10:44 10:44 Unknown Creatinine 0.80 Estimated GFR > 60 Triglycerides 94 Cholesterol 183 LDL Cholesterol, C alc 123 HDL Cholesterol 42 25-OH Vitamin D To balta 39 TSH 1.57 Microalb/Creat Rat io 6.1 She also has a history of papillary thyroid cancer status post total thyroidectomy in 2010 with radioactive iodine therapy. She is currently on 175 mcg levothyroxine She is followed at [facility] for this. 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 Mother Diabetes Sister Lung cancer Brother H/O heart surgery Diabetes Son Epilepsy Social History Household Members: Significant Other Housing: Apartment Alcohol intake: never Patient Tobacco Use Status: Never used Tobacco e-Cigarette/Vaping Use: Never Used Second Hand Smoke Exposure: No service: No Current occupational status: disabled Gender identity: Female Cognitive needs: Yes Hearing needs: No Vision needs: No Female Reproductive History Menstrual Age of Menarche: 13 Physical Exam Vital Signs: Last Vital Signs Pulse 70 09/25/23 09:50 BP 116/80 02/29/24 09:50 BMI result Body Mass Index 39.7 Absence of Cushingoid features. Absence of acromegalic features. Neck exam reveals nl size thyroid about 15 gms. No thyroid nodules palpable. No carotid bruits present. Lungs CTA. Heart S1 S2, Reg R/R. No M/R/ G. Skin exam reveals absence of vitiligo or acanthosis nigricans. Abdominal exam reveals Soft NT/ND with NA BS. No organomegaly present. Neck Other: . Extrem Other: Visual exam of foot performed. No ulcerations or open lesions. No onchomycosis, no callouses.Pulses 2 + distally Sensation intact to monofilament exam. Vibratory sensation sensed is decreased with 128 Hz tuning fork Results AMB Hemoglobin A1c AMB Hemoglobin A1c 7.3 % Last Edit by DOM Leigh on 09/25/23 10:21 Results Reviewed Results Reviewed: Laboratory Last Values Glucose (Clinic) 127 mg/dL (60-115) H 09/25/23 10:01 Hgb A1c (Clinic) 7.3 % (4.0-6.0) H 09/25/23 10:20 Assessment & Plan Assessment & Plan (1) Diabetes mellitus: Code(s): E11.9 - Type 2 diabetes mellitus without complications Qualifiers: Diabetes mellitus complication status: without complication Diabetes mellitus fci insulin use: with computer terminal operator use Diabetes mellitus type: type 2 Qualified Code(s): E11.9 - Type 2 diabetes mellitus without complications; Z79.4 - detention (current) use of insulin Plan: This 67-year-old female with a history of type 2 diabetes being treated metformin, Trulicity and basal insulin with good glycemic control and no known microvascular or macrovascular complications. Plan is to continue current regimen. At this point, patient is glycemic control is optimized and she can follow up with the primary care provider and returned back to endocrinology should her HbA1c deteriorate. She is to follow-up at [facility] for thyroid cancer. Orders: Orders AMB Hemoglobin A1c Today E11.9 - Type 2 diabetes mellitus without complications, Z13.9 - Encounter for screening, unspecified Medications: New blood sugar diagnostic (FreeStyle Lite Strips) As directed tests 4X/day 100 ea 6RF Coding Level of Care Code Est Pt Level 4 (94576) Diagnoses Type 2 diabetes mellitus without complication, with long-term current use of insulin E11.9; Z79.4 Diabetes mellitus complication status: without complication Diabetes mellitus fci insulin use: with fci use Diabetes mellitus type: type 2
[2023-09-25 10:06] LABS: Glucose, Whole Blood 127 mg/dL (60-115)
== END 2023-09-25 10:18 | disposition home or self-care (01) ==
PROVIDERS: PCP Internal Medicine; Visit Provider Internal Medicine Endocrinology, Diabetes & Metabolism
DX: E11.9 Type 2 diabetes mellitus without complications (principal); Z79.4 Long term (current) use of insulin
CPT/HCPCS: 99214

== ENCOUNTER → 2023-09-25 09:45 | Outpatient (BNVA) | payer OTHER, SELFPAY | PROVIDERS: PCP Internal Medicine; Visit Provider Internal Medicine Endocrinology, Diabetes & Metabolism | DX: E11.9 Type 2 diabetes mellitus without complications (principal); Z79.4 Long term (current) use of insulin | CPT/HCPCS: 82947; 83036; 99212 ==

== ENCOUNTER 2023-10-07 09:49 | Outpatient (AMB) | payer OTHER, SELFPAY ==
[2023-10-07 10:27] VITALS: BP 152/80; PULSE 83; O2SAT 98; BMI 39.3
--- NOTE | 2023-10-07 10:27 | A.OFFPC_ITS ---
Vital Signs 10/07/23 10:27 10/07/23 12:12 Height 5 ft 4 in Weight 229 lb BMI 39.3 BP 152/80 H 150/80 H Blood Pressure Location Lt brachial Lt brachial Position Sitting Sitting Pulse 83 Pulse Source Pulse Oximeter Pulse Oximetry (%) 98 Oxygen Delivery Method Room Air Intake Visit Reasons: dm Dress Finisher Required: No Accompanied by: Self / Same As Patient Allergies enalapril [ENALAPRIL] Allergy (Intermediate, Verified 10/07/23 10:42) Cough cephalexin [From KEFLEX] Allergy (Mild, Verified 10/07/23 10:42) rash ciprofloxacin [CIPROFLOXACIN] Allergy (Mild, Verified 10/07/23 10:42) HIVES,RASH levothyroxine sodium [LEVOTHYROXINE SODIUM] Allergy (Mild, Verified 10/07/23 10:42) RASH WITH GENERIC MED nitrofurantoin [NITROFURANTOIN] Allergy (Mild, Verified 10/07/23 10:42) RASH Penicillins [PENICILLINS] Allergy (Mild, Verified 10/07/23 10:42) RASH sulfamethoxazole [From BACTRIM] Allergy (Mild, Verified 10/07/23 10:42) rash trimethoprim [From BACTRIM] Allergy (Mild, Verified 10/07/23 10:42) rash dulaglutide [From Trulicity] Adverse Reaction (Unknown, Verified 10/07/23 10:42) Rash ALL GENERIC MEDS Allergy (Mild, Uncoded 10/07/23 10:42) Rash SHRIMP Allergy (Unknown, Uncoded 10/07/23 10:42) Unknown Medication List - Last Reconciled 10/07/23 by Yael Talbot MD acetaminophen (Tylenol) 650 mg (2 x 325 mg) PO Q4-6H PRN acetaminophen (Tylenol Extra Strength) 500 mg PO Q6H PRN 30 days [adult diapers As directed] alprazolam (Xanax) 1 - 2 mg (1 - 2 x 1 mg) PO ONCE atorvastatin 20 mg PO DAILY 90 days azelastine 1 spray intranasal BID betamethasone valerate 0.1% 1 appl topical BID blood sugar diagnostic (FreeStyle Lite Strips) 1 strip miscellaneous TID 90 days blood sugar diagnostic (FreeStyle Lite Strips) As directed tests 4X/day clobetasol 0.05% 1 appl topical DAILY cyclobenzaprine 5 mg PO Q8H PRN 5 days diclofenac sodium 1% 2 grams topical QID 1 month dicyclomine 20 mg PO TID 30 days diphenhydramine HCl (Banophen) 25 mg PO BEDTIME PRN 30 days disposable gloves (Biobrane Gloves Large) As directed docusate sodium 100 mg PO DAILY dulaglutide (Trulicity) 0.75 mg (0.5 mL) subcut QWEEK escitalopram oxalate 10 mg PO DAILY flash glucose scanning reader ([employer] [place]) As directed flash glucose sensor (oBazStyle [place] 2 Sensor kit) As directed change every 14 days humidifiers As directed hydrochlorothiazide 25 mg PO DAILY 90 days NS hydrocortisone 1% (Anti-Itch (hydrocortisone)) 1 appl topical BID PRN 14 days insulin glargine (Lantus Solostar U-100 Insulin) 14 units (0.14 mL) subcut DAILY 30 days ketotifen fumarate 0.025%(0.035%) 0 drps ophthalmic (eye) lancets ([employer] Lancets) 3 times aday levothyroxine (Synthroid) 175 mcg PO lidocaine 5% (Lidoderm) 1 patch topical DAILY PRN MDD remove after 12 hours lidocaine 5% 1 patch topical DAILY PRN 30 days losartan 25 mg PO DAILY 90 days metformin 1,000 mg (2 x 500 mg) PO BID mirabegron ER 25 mg PO DAILY naproxen 500 mg PO BID PRN 10 days omeprazole 20 mg PO QAM 90 days NS pen needle, diabetic (BD Ultra-Fine Aarti Pen Needle) 1 ea subcut DAILY plecanatide (Trulance) 3 mg PO DAILY [powerseat lift chair As directed] ramelteon 8 mg PO DAILY silver sulfadiazine 1% (Silvadene) 1 appl topical DAILY tacrolimus 0.1% topical [toilet seat elevator As directed] tramadol 50 mg PO BID PRN triamcinolone acetonide 0.1% 1 appl topical BID 10 days triamcinolone acetonide 0.025% appl topical underpads (Bed Underpads) Use 1 to 3 once a day prn white petrolatum 41% (Aquaphor Healing) 1 appl topical DAILY PRN 2 weeks [wipes As directed] Tobacco use date assessed: 10/07/23 Fall risk assessment: No Falls in past year Last assessed Fall Risk: 10/07/23 Dental Screening Dental Screen Date: 10/07/23 Did you have a dental visit in the last 12 months?: Yes Did you have a dental problem in the last 6 months where you did not have access to dental care?: No Was dental information given to patient?: Patient has dentist HPI HPI Comments History of Present Illness Details This is a 67-year-old female with diabetes mellitus type 2 on long-term current use of insulin, hypertension, dyslipidemia, acquired hypothyroidism due to thyroid cancer requiring thyroidectomy and mild recurrent major depression that comes today for follow-up on her conditions. Walks with a cane for gait s tability. A1c elevated and I will increase insulin. Blood pressure normal to elevated and was advised to decrease her salt intake. LDL not on goal and I will increase atorvastatin from 20 mg to 40 mg. Last TSH was normal. Depression stable with medications. Denies any chest pain or shortness of breath. Compliant with medications. Doing well. 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 Mother Diabetes Sister Lung cancer Brother H/O heart surgery Diabetes Son Epilepsy Social History Household Members: Significant Other Housing: Apartment Alcohol intake: never Patient Tobacco Use Status: Never used Tobacco e-Cigarette/Vaping Use: Never Used Second Hand Smoke Exposure: No service: No Current occupational status: disabled Gender identity: Female Cognitive needs: Yes Hearing needs: No Vision needs: No Female Reproductive History Menstrual Age of Menarche: 13 Questionnaire PHQ-9 Over the last 2 weeks, how often have you been bothered by any of the following problems? 1. Little interest or pleasure in doing things: not at all 2. Feeling down, depressed, or hopeless: not at all 3. Trouble falling or staying asleep, or sleeping too much: not at all 4. Feeling tired or having little energy: not at all 5. Poor appetite or overeating: not at all 6. Feeling bad about yourself - or that you are a failure or have let yourself or your family down: not at all 7. Trouble concentrating on things, such as reading the newspaper or watching television: not at all 8. Moving or speaking so slowly that other people could have noticed. Or the opposite - being so fidgety or restless that you have been moving around a lot more than usual: not at all 9. Thoughts that you would be better off or of hurting yourself in some way: not at all Total score: 0 Depression Screening Interpretation: Negative Depression Screening Done: Yes 98067 - PHQ-9 Billing: Yes Source: Developed by Drs. Leland Gregorio, Elda Quinteros, Lamin Pierre and colleagues, with an educational edilberto from [employer]. Thrive Questionnaire Date Thrive assessed: 10/07/23 I am a: Patient What is your living situation today?: I have a steady place to live Within the past 12 months, did the food you bought not last and you didn't have the money to get more?: Never true Within the past 12 months, did you worry whether your food would run out before you got money to buy more?: Never true Do you have trouble paying for medicines?: No Do you have trouble getting transportation to medical appointments?: No Do you have trouble paying your heating and electricity bill?: No Do you have trouble taking care of your child, family member or friend?: No Do you have trouble with day-to-day activities such as bathing, preparing meals, shopping, managing finances, etc.?: No Are you currently unemployed and looking for a job?: No Are you interested in more education?: No Currently or been in a relationship where the following occur: no concerns reported THRIVE Score: 0 AUDIT C Alcohol Use Questionnaire (AUDIT-C) 1. How often do you have a drink containing alcohol?: Never 3. How often do you have six or more drinks on one occasion?: Never Total Score: 0 Score Reviewed/Action Taken: No DENIS-7 AMB Questionnaire DENIS-7 Date DENIS - 7 assessed: 10/07/23 Feeling nervous, anxious, or on edge: 0 = Not at all Not being able to stop or control worryin = Not at all Worrying too much about different things: 0 = Not at all Trouble relaxin = Not at all Being so restless that it is hard to sit still: 0 = Not at all Becoming easily annoyed or irritable: 0 = Not at all Feeling afraid as if something awful might happen: 0 = Not at all Total DENIS-7 score (0-4 normal; 5-9 mild; 10-14 moderate; 15-21 severe): 0 Source: Developed by Drs. Leland Gregorio, Elda Quinteros, Lamin Pierre and colleagues, with an educational edilberto from [employer]. DENIS-7 Assessment Billing DENIS-7 Assessment Tool: DENIS-7 Assessment 31752 Review of Systems Const All systems reviewed & are unremarkable except as noted in HPI and below Eyes Reports no additional complaints, Denies change in vision and Denies other visual disturbances Card Denies chest pain at rest, Denies chest pain with activity, Denies edema, Denies irregular heart rhythm, Denies claudication, Denies dyspnea, Denies dyspnea on exertion, Denies orthopnea, Denies paroxysmal nocturnal dyspnea and Denies slow heart rate Resp Denies cough, Denies dyspnea and Denies dyspnea on exertion GI Denies abdominal pain, Denies change in bowel habits, Denies excessive flatus, Denies nausea and Denies vomiting Denies urinary incontinence, Denies urinary hesitancy and Denies urinary urgency Musc Denies abnormal gait, Denies atrophy, Denies deformity and Denies limited range of motion Skin/Breast Denies bleeding lesions, Denies changing lesions and Denies rash Neuro Denies abnormal gait and Denies lack of coordination Physical exam (Primary Care) Vital Signs: Last Vital Signs Pulse 83 10/07/23 10:27 BP 152/80 H 10/07/23 10:27 Pulse Ox 98 10/07/23 10:27 Oxygen Delivery Method Room Air 10/07/23 10:27 BMI result Body Mass Index 39.3 Tobacco/Smoking Status: Tobacco use Status Tobacco use date assessed 10/07/23 10/07/23 10:34 Patient Tobacco Use Status Never used Tobacco 10/07/23 10:34 e-Cigarette/Vaping Use Never Used 10/07/23 10:34 PHQ-9: PHQ-9 Score PHQ-9: Total score 0 10/07/23 10:47 Depression Screening Interpretation: Negative Thrive Assessment: Date of Thrive Assessment Date Thrive assessed 10/07/23 10/07/23 10:34 Currently or been in a relationship where the following occur: no concerns reported Const Limitations: ambulation with cane Eyes General: appearance normal, both eyes and all related structures Eyelids: Yes eyelids normal Conjunctivae: conjunctivae normal Neck Neck: Yes normal visual inspection and Yes supple Resp Effort & Inspection: normal respiratory effort Auscultation: clear to auscultation bilaterally Cardio Jugular venous distension: no JVD Rate: regular rate Rhythm: regular rhythm Heart sounds: S1 normal heart sound present and S2 normal heart sound present Extrem General: Yes full ROM Assessment and Plan Assessment & Plan (1) Mild recurrent major depression: Code(s): F33.0 - Major depressive disorder, recurrent, mild Plan: Continue escitalopram. (2) Essential hypertension: Code(s): I10 - Essential (primary) hypertension Plan: Continue hydrochlorothiazide. Blood pressure goal is equal or less than 130/80. Decrease salt intake. (3) Diabetes mellitus: Code(s): E11.9 - Type 2 diabetes mellitus without complications Qualifiers: Diabetes mellitus type: type 2 Diabetes mellitus ad terminal makeup operator insulin use: with chcf use Diabetes mellitus complication status: without complication Qualified Code(s): E11.9 - Type 2 diabetes mellitus without complications; Z79.4 - prison (current) use of insulin Plan: Continue Trulicity. Increase insulin. A1c goal is equal or less than 7%. (4) Acquired hypothyroidism: Code(s): E03.9 - Hypothyroidism, unspecified Plan: Continue levothyroxine. (5) Dyslipidemia: Code(s): E78.5 - Hyperlipidemia, unspecified Plan: Increase atorvastatin from 20 mg to 40 mg. LDL goal is less than 70. Medications: New atorvastatin 40 mg PO BEDTIME 90 days 90 tabs 1RF blood-glucose meter (FreeStyle Lite Meter kit) As directed 1 ea 0RF E11.9 - Type 2 diabetes mellitus without complications Changed From insulin glargine (Lantus Solostar U-100 Insulin) 14 units (0.14 mL) subcut DAILY 30 days 4.2 mL 4RF E11.9 - Type 2 diabetes mellitus without complications, Z79.4 - prison (current) use of insulin To insulin glargine (Lantus Solostar U-100 Insulin) 16 units (0.16 mL) subcut DAILY 30 days 4.8 mL 4RF E11.9 - Type 2 diabetes mellitus without complications, Z79.4 - prison (current) use of insulin Refilled tramadol 50 mg PO BID PRN 10 tabs 0RF pain M75.01 - Adhesive capsulitis of right shoulder, M79.601 - Pain in right arm Discontinued atorvastatin Discontinued Reason: No Longer Medically Relevant 20 mg PO DAILY 90 days 90 tabs 2RF Coding Level of Care Code Est Pt Level 4 (70091) Diagnoses Mild recurrent major depression F33.0 Essential hypertension I10 Type 2 diabetes mellitus without complication, with long-term current use of insulin E11.9; Z79.4 Diabetes mellitus type: type 2 Diabetes mellitus ad terminal makeup operator insulin use: with ad terminal makeup operator use Diabetes mellitus complication status: without complication Acquired hypothyroidism E03.9 Dyslipidemia E78.5 Additional Codes DENIS-7 Assessment Billing - DENIS-7 Assessment Tool: DENIS-7 Assessment [id number] ([id number]) Time Spent (min) 24
[2023-10-07 12:12] VITALS: BP 150/80
== END 2023-10-07 10:55 | disposition home or self-care (01) ==
PROVIDERS: PCP Internal Medicine; Visit Provider Internal Medicine
DX: E11.69 Type 2 diabetes mellitus with other specified complication (principal); Z79.4 Long term (current) use of insulin; F33.0 Major depressive disorder, recurrent, mild; I10 Essential (primary) hypertension; E03.9 Hypothyroidism, unspecified; E78.5 Hyperlipidemia, unspecified
CPT/HCPCS: 99214

== ENCOUNTER 2023-10-09 08:41 | Emergency (ER) | payer OTHER, SELFPAY ==
--- NOTE | ~2023-10-09 | XR_ITS ---
EXAMINATION: XR SHOULDER, LEFT CLINICAL INFORMATION: Left shoulder pain. No trauma. COMPARISON: 08/13/2019 TECHNIQUE: AP external rotation, Grashey, scapular Y, and axillary views of the left shoulder. FINDINGS: Glenohumeral alignment is anatomic with normal joint space. Downsloping acromion. Hypertrophic changes of the acromioclavicular joint. No displaced fracture or dislocation. Small calcifications along the posterior humeral head. XR/XR shoulder LT min 2V IMPRESSION: Calcific tendinosis.
[2023-10-09 08:46] VITALS: BP 153/75; PULSE 99; RESP 16; TEMP 36.6; O2SAT 98; BMI 39.6
--- NOTE | 2023-10-09 08:59 | ED_ITS ---
HPI - General Adult General Chief complaint: Extremity Problem Stated complaint: Pain in arms/legs Time Seen by Provider: 10/09/23 08:57 Source: patient and translator and interpreter Mode of arrival: ambulatory Limitations: language barrier History of Present Illness HPI narrative: Patient is a 59-year-old Georgian-speaking female with T2DM, dyslipidemia, HTN, GERD, thyroid CA with thyroidectomy presenting to emergency department with complaint of left shoulder pain radiating down left arm for the past 2 days after lifting a heavy espinoza. States pain is worse with movement and palpation. She went to PCP who advised patient to use Tylenol, patient states this did not improve her symptoms. She denies any chest pain, dyspnea, palpitations. Denies fall or other injury. Also complaining of pain to left mid foot, plantar bruce face. States she stepped on a piece of glass 5 mos ago and has had ongoing pain since. 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 MD complaint: left shoulder pain, left foot pain Onset (ago): day(s) Location: left, upper extremity and lower extremity Radiation: other (shoulder pain radiates to arm) Severity: severe Quality: aching Pain Consistency: colicky Relieving factors: rest Exacerbating factors: movement and other (palpation) Associated symptoms: denies other symptoms Treatments prior to arrival: other (Tylenol) Related Data Home Medications Medication Instructions Recorded Confirmed escitalopram oxalate 10 mg tablet 10 mg PO DAILY 06/26/20 10/07/23 mirabegron 25 mg tablet,extended 25 mg PO DAILY 12/15/20 10/07/23 release 24 hr clobetasol 0.05 % topical ointment 1 appl topical DAILY 04/02/22 10/07/23 azelastine 137 mcg (0.1 %) nasal 1 spray intranasal BID 07/02/22 10/07/23 spray aerosol betamethasone valerate 0.1 % 1 appl topical BID 07/02/22 10/07/23 topical cream docusate sodium 100 mg capsule 100 mg PO DAILY 07/02/22 10/07/23 ketotifen fumarate 0.025 % (0.035 0 drp ophthalmic (eye) 07/02/22 10/07/23 %) eye drops levothyroxine 175 mcg tablet 175 mcg PO 07/31/22 10/07/23 (Synthroid) tacrolimus 0.1 % topical ointment topical 11/26/22 10/07/23 triamcinolone acetonide 0.025 % appl topical 11/26/22 10/07/23 topical cream ramelteon 8 mg tablet 8 mg PO DAILY 12/27/22 10/07/23 Previous Rx's Medication Instructions Recorded triamcinolone acetonide 0.1 % 1 appl topical BID rash 10 days 08/21/20 topical cream #15 grams hydrocortisone 1 % topical cream 1 appl topical BID PRN skin 09/01/20 (Anti-Itch (hydrocortisone)) irritation 14 days #28.35 grams alprazolam 1 mg tablet (Xanax) 1 - 2 mg (1 - 2 x 1 mg) PO ONCE To 03/20/21 be taken 1 hour before MRI #2 tabs toilet seat elevator #1 ea 04/10/21 lancets 28 gauge (FreeStyle #300 ea 10/16/21 Lancets) white petrolatum 41 % topical 1 appl topical DAILY PRN dry skin 10/31/21 ointment (Aquaphor Healing) 2 weeks #20 grams humidifiers #1 ea 07/12/22 diclofenac sodium 1 % topical gel 2 g topical QID 1 month #100 grams 09/03/22 lidocaine 5 % topical patch 1 patch topical DAILY PRN pain #30 11/12/22 (Lidoderm) ea plecanatide 3 mg tablet (Trulance) 3 mg PO DAILY #30 tabs 11/15/22 acetaminophen 500 mg tablet 500 mg PO Q6H PRN fever or pain 30 12/31/22 (Tylenol Extra Strength) days #120 tabs disposable gloves (Biobrane Gloves #100 ea 12/31/22 Large) losartan 25 mg tablet 25 mg PO DAILY 90 days #90 tabs 12/31/22 adult diapers #240 ea 01/07/23 underpads (Bed Underpads) #150 ea 01/07/23 wipes #200 ea 01/07/23 pen needle, diabetic 32 gauge x 1 ea subcut DAILY #30 ea 03/28/23/32 (BD Ultra-Fine Aarti Pen Needle) flash glucose sensor (FreeStyle #2 ea 04/08/23 Carley 2 Sensor kit) flash glucose scanning reader #1 ea 04/23/23 (FreeStyle [place] 2 [place]) lidocaine 5 % topical patch 1 patch topical DAILY PRN pain 30 05/08/23 days #30 ea cyclobenzaprine 5 mg tablet 5 mg PO Q8H PRN pain (scale score 05/12/23 7-10) 5 days #14 tabs naproxen 500 mg tablet 500 mg PO BID PRN pain 10 days #20 05/12/23 tabs blood sugar diagnostic (FreeStyle 1 strip miscellaneous TID 90 days 06/04/23 Lite Strips) #300 strips acetaminophen 325 mg tablet 650 mg (2 x 325 mg) PO Q4-6H PRN 06/05/23 (Tylenol) pain #30 tabs hydrochlorothiazide 25 mg tablet 25 mg PO DAILY 90 days #90 tabs 06/11/23 silver sulfadiazine 1 % topical 1 appl topical DAILY #50 grams 06/17/23 cream (Silvadene) powerseat lift chair #1 ea 06/25/23 omeprazole 20 mg capsule,delayed 20 mg PO QAM 90 days #90 caps 07/19/23 release dicyclomine 20 mg tablet 20 mg PO TID 30 days #90 tabs 08/19/23 dulaglutide 0.75 mg/0.5 mL 0.75 mg (0.5 mL) subcut QWEEK #6 mL 08/21/23 subcutaneous pen [facility] ([facility] metformin 500 mg tablet 1,000 mg (2 x 500 mg) PO BID #360 08/21/23 tabs blood sugar diagnostic (FreeStyle #100 ea 09/25/23 Lite Strips) diphenhydramine HCl 25 mg capsule 25 mg PO BEDTIME PRN allergic 09/25/23 (Banophen) reaction 30 days #20 caps atorvastatin 40 mg tablet 40 mg PO BEDTIME 90 days #90 tabs 10/07/23 blood-glucose meter (FreeStyle #1 ea 10/07/23 Lite Meter kit) insulin glargine 100 unit/mL (3 16 unit (0.16 mL) subcut DAILY 30 10/07/23 mL) subcutaneous pen ( #4.8 mL Solostar U-100 Insulin) tramadol 50 mg tablet 50 mg PO BID PRN pain #10 tabs 10/07/23 cyclobenzaprine 5 mg tablet 5 mg PO TID PRN muscle spasm #10 10/09/23 tabs lidocaine 5 % topical patch 1 patch topical DAILY #15 ea 10/09/23 Allergies Allergy/AdvReac Type Severity Reaction Status Date / Time enalapril [ENALAPRIL] Allergy Intermediate Cough Verified 10/07/23 10:42 cephalexin [From KEFLEX] Allergy Mild rash Verified 10/07/23 10:42 ciprofloxacin [CIPROFLOXACIN] Allergy Mild HIVES,RASH Verified 10/07/23 10:42 levothyroxine sodium Allergy Mild RASH WITH Verified 10/07/23 10:42 [LEVOTHYROXINE SODIUM] GENERIC MED nitrofurantoin Allergy Mild RASH Verified 10/07/23 10:42 [NITROFURANTOIN] Penicillins [PENICILLINS] Allergy Mild RASH Verified 10/07/23 10:42 sulfamethoxazole Allergy Mild rash Verified 10/07/23 10:42 [From BACTRIM] trimethoprim [From BACTRIM] Allergy Mild rash Verified 10/07/23 10:42 dulaglutide [From Trulicity] AdvReac Unknown Rash Verified 10/07/23 10:42 ALL GENERIC MEDS Allergy Mild Rash Uncoded 10/07/23 10:42 SHRIMP Allergy Unknown Unknown Uncoded 10/07/23 10:42 Review of Systems Review of Systems: As per HPI Yes all other systems are reviewed and are negative Constitutional: Constitutional: Reports as per HPI PMFSH Past Medical History Medical History Mild recurrent major depression Thyroid cancer Right arm pain Rash Depression Anxiety Sacroiliac joint disease Lumbar spondylosis GERD without esophagitis Acquired hypothyroidism Benign essential hypertension Lower back pain Constipation Obesity (BMI 30-39.9) 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 Mother Diabetes Sister Lung cancer Brother H/O heart surgery Diabetes Son Epilepsy Social History Social History Household Members: Significant Other Housing: Apartment Unable to assess alcohol history related to: Unknown Alcohol intake: never Patient Tobacco Use Status: Never used Tobacco Smoked in Last 30 Days: No e-Cigarette/Vaping Use: Never Used Second Hand Smoke Exposure: No Use of substances other than those prescribed or required for medical reasons: Unknown Advance Directives: No service: No Current occupational status: disabled Gender identity: Female Cognitive needs: Yes Hearing needs: No Vision needs: No Physical Exam ED Vital Signs: Vital Signs - 24 hr 10/09/23 08:46 Temperature 97.9 F Pulse Rate 99 Respiratory Rate 16 Blood Pressure 153/75 H Pulse Oximetry 98 Oxygen Delivery Method Room Air BMI result Body Mass Index 39.6 Vital signs have been reviewed and appear to be correct. Blood pressure elevated. Heart rate normal. Respiratory rate normal. Temperature normal. Oxygen saturation normal. Const General: cooperative, healthy appearing and no acute distress Orientation/consciousness: oriented to person, oriented to place, oriented to time and patient oriented x3 Limitations: no limitations HENMT Head: Yes normocephalic and Yes atraumatic Ears: external ears normal General nose exam: Normal external nose present Face and sinus: Yes face symmetric Mouth: oropharynx normal and moist mucous membranes Throat: Yes uvula midline Eyes Pupils: Equal, round and reactive pupils present Neck Neck: Yes normal visual inspection and Yes supple Resp Effort & Inspection: normal respiratory effort and able to speak in complete sentences Auscultation: clear to auscultation bilaterally Cardio Rate: regular rate Rhythm: regular rhythm Heart sounds: S1 normal heart sound present and S2 normal heart sound present GI Palpation (GI): Soft to palpation and nontender Auscultation: normoactive bowel sounds General: Yes no CVA tenderness Back/Spine/Pelvis Back: no CVA tenderness Skin General skin exam: elasticity normal and turgor normal Neuro General: oriented to person, oriented to place, oriented to time, patient oriented x3, moves all extremities, no focal motor deficits and CN's II-XI intact bilaterally Cranial nerves: Yes Equal, round and reactive pupils present Cognition (Neuro): normal cognition Extrem General: Yes full ROM, Yes no pedal edema and Yes no calf tenderness Left upper extremity: shoulder/upper arm Details: inspection abnormal, tenderness Location: of the A-C joint, axillary nerve sensory function normal and normal ROM; no swelling, no ecchymosis, no deformity and no unsual warmth and hand Details: vascular exam Details: radial pulse present Left lower extremity: foot Details: normal capillary refill, normal to inspection, tenderness Location: of the plantar foot (mid foot) and toes with normal ROM Psych Mental Status: mental status grossly normal Affect: normal affect Thought process: Normal thought process present Medical Decision Making Medical Decision Making MDM Narrative: Patient is a 59-year-old Georgian-speaking female with T2DM, dyslipidemia, HTN, GERD, thyroid CA with thyroidectomy presenting to emergency department with complaint of left shoulder pain radiating down left arm for the past 2 days after lifting a heavy espinoza. On exam patient is awake, A+Ox3, VS WNL, afebrile, normal neurological exam without focal deficits, physical exam findings as above. Given reported symptoms and physical exam findings, initial differential includes shoulder strain, sprain, degenerative disease, OA. Given length of time since patient feels glass was embedded in foot, and the fact that glass will not be visible on x-ray, will defer imaging at foot at this time time. Unlikely fracture or dislocation but will obtain x-ray. X-ray notable for calcific tendonitis. My interpretation is in agreement with the radiologist's interpretation. Results discussed with patient via translator and interpreter and all questions answered, return precautions discussed. Instructed patient to follow up with PCP. Patient verbalized understanding of and agreement with plan. Differential Diagnosis Differential Diagnoses: The differential diagnosis associated with the presentation includes As per MDM. Independent Interpretation I performed an independent interpretation of an: Plain X-Ray Interpretation: calcific tendonitis of left shoulder Radiology Impression Discussion of test interpretation with radiology: I have reviewed the radiologist's reading. Radiologist Impression: XR/XR shoulder LT min 2V IMPRESSION: Calcific tendinosis. External Record Review External record reviewed: Inpatient record, Office record and Outpatient record Prescription Management I considered prescription management with: Pain Medication and Other Chronic Conditions Patient?s care impacted by: Diabetes Discharge Plan Discharge Clinical Impression: Calcific tendonitis of left shoulder Patient Disposition: Home, Self-Care Instructions: Rotator Cuff Tendinitis (ED), Calcific Tendinitis (ED) Additional Instructions: Fue valorado en urgencias por dolor en hombro antoinette. Ansari radiograf?a mostr? evidencia de tendinitis calcificada. Le recetan un relajante muscular y parches de lidoca?na t?pica que puede usar hasta por 12 horas en un per?odo de 24 horas. No aplique calor directamente sobre los parches. Nenita un seguimiento con ansari proveedor de atenci?n primaria, ya que es posible que necesite fisioterapia para mejorar jose f s?ntomas. Regrese al departamento de emergencias si presenta un dolor que empeora, nueva debilidad, entumecimiento, hormigueo, fiebre o cualquier otro s?ntoma preocupante. Lo derivan a cirug?a general por ansari dolor en el pie; hable sobre esto con ansari proveedor de atenci?n primaria o llame a ansari consultorio para programar telma layton. Prescriptions: New cyclobenzaprine 5 mg tablet 5 mg PO TID PRN (Reason: muscle spasm) Qty: 10 0RF lidocaine 5 % adhesive patch,medicated 1 patch topical DAILY Qty: 15 0RF Rx Instructions: leave on most painful area for up to 12 hrs No Action hydrocortisone [Anti-Itch (HC)] 1 % cream 1 appl topical BID PRN (Reason: skin irritation) 14 Days Qty: 28.35 1RF alprazolam [Xanax] 1 mg tablet 1 - 2 mg PO ONCE Qty: 2 0RF (DME) toilet seat elevator See Rx Instructions .Route .MEDSUPPLY Qty: 1 0RF Rx Instructions: As directed (DME) lancets [FreeStyle Lancets] 28 gauge misc See Rx Instructions .ROUTE .MEDSUPPLY Qty: 300 6RF Rx Instructions: 3 times aday Aquaphor Healing 41 % ointment 1 appl topical DAILY PRN (Reason: dry skin) 14 Days Qty: 20 0RF (DME) humidifiers Misc See Rx Instructions .Route Qty: 1 0RF Rx Instructions: As directed diclofenac sodium 1 % gel 2 g topical QID 30 Days Qty: 100 4RF Rx Instructions: apply to single elbow, wrist or hand; for hand includes palm/fingers/back of hand (DME) disposable gloves [Biobrane Gloves Large] Misc See Rx Instructions .Route Qty: 100 6RF Rx Instructions: As directed (DME) adult diapers large See Rx Instructions .Route .MEDSUPPLY Qty: 240 11RF Rx Instructions: As directed (DME) underpads [Bed Underpads] Pad See Rx Instructions .Route Qty: 150 11RF Rx Instructions: Use 1 to 3 once a day prn (DME) wipes See Rx Instructions .Route .MEDSUPPLY Qty: 200 11RF Rx Instructions: [place] [place] FreeStyle [place] 2 Sensor Kit See Rx Instructions .Route Qty: 2 11RF Rx Instructions: As directed change every 14 days [place] [place] FreeStyle [place] 2 [place] Misc See Rx Instructions .Route Qty: 1 0RF Rx Instructions: As directed cyclobenzaprine 5 mg tablet 5 mg PO Q8H PRN (Reason: pain (scale score 7-10)) 5 Days Qty: 14 0RF naproxen 500 mg tablet 500 mg PO BID PRN (Reason: pain) 10 Days Qty: 20 0RF FreeStyle Lite Strips Strip 1 strip miscellaneous TID 90 Days Qty: 300 11RF hydrochlorothiazide 25 mg tablet 25 mg PO DAILY 90 Days Qty: 90 4RF (DME) powerseat lift chair See Rx Instructions .Route .MEDSUPPLY Qty: 1 0RF Rx Instructions: As directed omeprazole 20 mg capsule,delayed release(DR/EC) 20 mg PO QAM 90 Days Qty: 90 5RF dicyclomine 20 mg tablet 20 mg PO TID 30 Days Qty: 90 1RF metformin 500 mg tablet 1,000 mg PO BID Qty: 360 3RF Trulicity 0.75 mg/0.5 mL pen injector 0.75 mg subcut QWEEK Qty: 6 4RF diphenhydramine HCl [Banophen] 25 mg capsule 25 mg PO BEDTIME PRN (Reason: allergic reaction) 30 Days Qty: 20 2RF lidocaine [Lidoderm] 5 % adhesive patch,medicated 1 patch topical DAILY MDD remove after 12 hours PRN (Reason: pain) Qty: 30 0RF Rx Instructions: leave on most painful area for up to 12 hrs acetaminophen [Tylenol] 325 mg tablet 650 mg PO Q4-6H PRN (Reason: pain) Qty: 30 0RF triamcinolone acetonide 0.1 % cream 1 appl topical BID 10 Days Qty: 15 0RF acetaminophen [Tylenol Extra Strength] 500 mg tablet 500 mg PO Q6H PRN (Reason: fever or pain) 30 Days Qty: 120 2RF losartan 25 mg tablet 25 mg PO DAILY 90 Days Qty: 90 3RF silver sulfadiazine [Silvadene] 1 % cream 1 appl topical DAILY Qty: 50 0RF Rx Instructions: apply a 1.5 mm thickness levothyroxine [Synthroid] 175 mcg tablet 175 mcg PO lidocaine 5 % adhesive patch,medicated 1 patch topical DAILY PRN (Reason: pain) 30 Days Qty: 30 1RF Rx Instructions: leave on most painful area for up to 12 hrs tramadol 50 mg tablet 50 mg PO BID PRN (Reason: pain) Qty: 10 0RF insulin glargine [Lantus Solostar U-100 Insulin] 100 unit/mL (3 mL) insulin pen 16 unit subcut DAILY 30 Days Qty: 4.8 4RF atorvastatin 40 mg tablet 40 mg PO BEDTIME 90 Days Qty: 90 1RF (DME) blood-glucose meter [FreeStyle Lite Meter] Kit See Rx Instructions .Route Qty: 1 0RF Rx Instructions: As directed escitalopram oxalate 10 mg tablet 10 mg PO DAILY mirabegron 25 mg tablet extended release 24 hr 25 mg PO DAILY clobetasol 0.05 % ointment 1 appl topical DAILY Rx Instructions: Use daily for 2 weeks, then every other day for 2 wks, then twice a week docusate sodium 100 mg capsule 100 mg PO DAILY azelastine 137 mcg (0.1 %) aerosol,spray 1 spray intranasal BID betamethasone valerate 0.1 % cream 1 appl topical BID ketotifen fumarate 0.025 % (0.035 %) drops 0 drp ophthalmic (eye) tacrolimus 0.1 % ointment topical triamcinolone acetonide 0.025 % cream topical Trulance 3 mg tablet 3 mg PO DAILY Qty: 30 6RF ramelteon 8 mg tablet 8 mg PO DAILY (DME) FreeStyle Lite Strips Strip See Rx Instructions .Route Qty: 100 6RF Rx Instructions: As directed tests 4X/day pen needle, diabetic [BD Ultra-Fine Aarti Pen Needle] 32 gauge x 5/32 needle 1 ea subcut DAILY Qty: 30 11RF Referrals: [facility] [place] General Surgeons [Provider Group] Print Language: Georgian
--- NOTE | 2023-10-09 10:04 | ECG_ITS ---
Test Reason : shoulder pain Blood Pressure : / mmHG Vent. Rate : 065 BPM Atrial Rate : 065 BPM P-R Int : 192 ms QRS Dur : 078 ms QT Int : 390 ms P-R-T Axes : 039 007 035 degrees QTc Int : 405 ms Normal sinus rhythm Minimal voltage criteria for LVH, may be normal variant ( R in aVL ) Borderline ECG When compared with ECG of 12-NOV-2022 09:02, No significant change was found Referred By: Kelly Anne Electronically Signed By:FLOYD BLOCK MD
== END 2023-10-09 11:48 | disposition home or self-care (01) ==
PROVIDERS: Emergency Provider Emergency Medicine; PCP Internal Medicine
DX: M75.32 Calcific tendinitis of left shoulder (principal); M75.31 Calcific tendinitis of right shoulder; M79.601 Pain in right arm; M79.602 Pain in left arm; R94.31 Abnormal electrocardiogram [ECG] [EKG]; I10 Essential (primary) hypertension; Z79.899 Other long term (current) drug therapy
CPT/HCPCS: 73030; 93005; 99283; 99284

== ENCOUNTER → 2023-10-09 10:04 | Outpatient (BNV) | payer OTHER, SELFPAY | PROVIDERS: Emergency Provider Emergency Medicine; PCP Internal Medicine; Visit Provider Internal Medicine Cardiovascular Disease | DX: M25.519 Pain in unspecified shoulder (principal) | CPT/HCPCS: 93010 ==

== ENCOUNTER 2023-10-17 08:48 | Outpatient (AMB) | payer OTHER, SELFPAY ==
--- NOTE | 2023-10-17 08:50 | A.OFFVIS_ITS ---
Intake Vital Signs 10/17/23 09:00 Height 5 ft 4 in Weight 230 lb BMI 39.5 BP 144/67 H Blood Pressure Location Lt brachial Position Sitting Pulse 70 Intake Visit Reasons: 6 Month Follow Up Intake Note: Crystal presents to in office visit today in 6 months follow up of constipation. CC: Patient c/o constipation. Denies any other GI issues. 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 Accompanied by: Friend Allergies enalapril [ENALAPRIL] Allergy (Intermediate, Verified 10/24/23 11:25) Cough cephalexin [From KEFLEX] Allergy (Mild, Verified 10/24/23 11:25) rash ciprofloxacin [CIPROFLOXACIN] Allergy (Mild, Verified 10/24/23 11:25) HIVES,RASH levothyroxine sodium [LEVOTHYROXINE SODIUM] Allergy (Mild, Verified 10/24/23 11:25) RASH WITH GENERIC MED nitrofurantoin [NITROFURANTOIN] Allergy (Mild, Verified 10/24/23 11:25) RASH Penicillins [PENICILLINS] Allergy (Mild, Verified 10/24/23 11:25) RASH sulfamethoxazole [From BACTRIM] Allergy (Mild, Verified 10/24/23 11:25) rash trimethoprim [From BACTRIM] Allergy (Mild, Verified 10/24/23 11:25) rash dulaglutide [From Trulicity] Adverse Reaction (Unknown, Verified 10/24/23 11:25) Rash ALL GENERIC MEDS Allergy (Mild, Uncoded 10/24/23 11:25) Rash SHRIMP Allergy (Unknown, Uncoded 10/24/23 11:25) Unknown HPI 6 Month Follow Up HPI Details Assessment & Plan (1) Chronic idiopathic constipation: Code(s): K59.04 - Chronic idiopathic constipation Plan: [place] #[place]ati, Live She continues on her omeprazole, Trulance and bentyl with good control of her GI problems. She needed better instructions regarding how to perform the COlogurd as they did not give instructions in [place] . We watch video, I also give them the web addressed for the Cologuard video 1 you to and if they really have trouble we will request that the company mail them the instructions in [place]. She has not seen be state along or following her for her liver. We have referred her to them because she had an elevated SMA and SAMIR and a liver biopsy that was not conclusive as the actual cause of her liver disease. ROV 6 mos. (2) GERD (gastroesophageal reflux diseas e): Code(s): K21.9 - Gastro-esophageal reflux disease without esophagitis (3) Elevated LFTs: Comment: Baseline labs and appropriate history .... 62 y/o female here for a follow up on a liver biopsy ordered to assess elevated? SMA and AMA results and elevated LFT's. The patient was last seen by MYSELF? 03/02/18 and at that time she was with her daughter and her female friend.?The pathology report was not conclusive. While she does have early? cirrhosis, it does not point convincingly toward PBC or DORAN. Dr. Jha seems? to think a SPEP is in order and a referral to a specialist at a tertiary care? center (If [facility], [facility]). ?[place] is [place] and we? are utilizing a telephone translation service #[id number], [place]. ?She? is willing to go to [facility] for a second opinion, which is what Dr. Jha? suggested. ?I will get a SPEP for evidence as also suggested.. LIVER BIOPSY 03/13/18 LIVER, CORE BIOPSY: LIVER WITH MODERATE TO SEVERE CHRONIC HEPATITIS WITH BRIDGING FIBROSIS AND FOCAL NODULAR ARCHITECTURE SUGGESTIVE OF EARLY CIRRHOSIS. The cores show hepatic tissue with architectural distortion, with many portal areas showing marked expansion with a dense chronic inflammatory infiltrate composed primarily of lymphocytes, with a few plasma cells, eosinophils and neutrophils. Small ducts are present, and destructive duct lesions are not identified. Interface activity is focal, mild to moderate. Hepatic lobules show architectural distortion and clustered lymphocytes. Mild, predominantly macrovesicular steatosis is present. Stainable iron is absent. The findings are not specific as to etiology. Note is made of negative viral serologies, as well as positive serum antimitochondrial antibodies and smooth muscle antibodies, raising the possibilities of primary biliary cirrhosis and autoimmune hepatitis, both of which could produce the given histologic findings. Drug- induced or alcohol-related injury should also be considered. Most recent Laboratory Tests 07/12/2104/21/22 10:4408:25 Plt Count 196 Estimated GFR > 60 Total Bilirubin 0.3 AST 24 ALT 21 Alkaline Phosphatase 68 D TSH 1.3 *.* LAST IMAGING IMPRESSION: Liver of diffuse increased echogenicity. This is nonspecific, but consistent with diffuse fatty infiltration. Otherwise, unremarkable abdominal ultrasound status post cholecystectomy. REPORT SIGNED IN OTHER VENDOR SYSTEM 02/19/2018 Code(s): R79.89 - Other specified abnormal findings of blood chemistry Laboratory Tests 09/22/23 09:41 Estimated GFR > 60 Total Bilirubin 0.4 AST 31 ALT 30 Alkaline Phosphata se 93 TSH 1.34 TODAY'S VISIT [place] #Di Shen She continues on her omeprazole, Trulance and bentyl with good control of her GI problems. She is due for another screening colonoscopy and she is agreeable to having this done. She really dislikes the volume of the GoLYTELY so will see if we can get something smaller volume like Suprep covered. Her last colonoscopy was in [address] Dickinson and was negative. We had offered Cologuard but after period of time she decided she did not want to do this test so today she says she wants to proceed directly to colonoscopy. There are no prior problems with anesthesia or sedation. She denies any cardiac or respiratory problems. There are no infectious disease problems. She tells me her brother was diagnosed with colon cancer so she is quite overdue! We go over the most recent lab work and her liver appears to be stable but we will get an ultrasound to complete the workup. [facility] Medical History (Updated 10/31/23 @ 09:44 by LIZ Farr) Pain of left thumb Right upper quadrant pain AC (acromioclavicular) arthritis Diabetes mellitus Hypertension Elevated LFTs Osteoarthritis (arthritis due to wear and tear of joints) Physical exam Colon cancer screening Allergic reaction DM2 (diabetes mellitus, type 2) Back pain Right arm pain Vulvar irritation Encounter for annual routine gynecological examination Impacted cerumen of left ear Rash Lower back pain Abnormal laboratory test result Back pain Mild recurrent major depression Thyroid cancer Depression Anxiety Sacroiliac joint disease Lumbar spondylosis GERD without esophagitis Acquired hypothyroidism Benign essential hypertension Constipation Obesity (BMI 30-39.9) Dyslipidemia FPC (current) use of insulin Diabetes type 2, uncontrolled Surgical History (Updated 10/24/23 @ 17:15 by LIZ Farr) Status post right rotator cuff repair Hx of shoulder surgery History of liver biopsy History of esophagogastroduodenoscopy (EGD) Hx of colonoscopy History of cholecystectomy History of bladder surgery H/O thyroidectomy Family History Father No problems noted. Mother Diabetes Sister Lung cancer Brother H/O heart surgery Diabetes Son Epilepsy Social History Household Members: Significant Other Housing: Apartment Unable to assess alcohol history related to: Unknown Alcohol intake: never Patient Tobacco Use Status: Never used Tobacco e-Cigarette/Vaping Use: Never Used Second Hand Smoke Exposure: No service: No Current occupational status: disabled Gender identity: Female Cognitive needs: Yes Hearing needs: No Vision needs: No Female Reproductive History Menstrual Age of Menarche: 13 Review of Systems Const Denies fatigue, Denies fever(s), Denies night sweats, Denies poor appetite and Denies weight loss ENT Reports Normal hearing present, Denies dental pain, Denies dysphagia, Denies hearing loss, Denies mouth pain, Denies odynophagia, Denies throat swelling, Denies tongue swelling and Reports other (Dentition adequate) Card Reports no additional complaints Resp Reports no additional complaints GI Details: Denies abdominal pain, Denies melena, Denies bloating, Denies hematochezia, Reports constipation, Reports GI cramping, Denies dysphagia, Denies excessive flatus, Denies early satiety, Reports heartburn, Denies diarrhea, Denies nausea, Denies odynophagia, Denies vomiting and Denies hematemesis Skin/Breast Denies pruritus, Denies lesions, Denies rash and Denies jaundice Neuro Reports Normal hearing present and Denies Abnormal speech present Endo Denies fatigue Aller/Immun Denies throat swelling and Denies tongue swelling Physical Exam Vital Signs: Last Vital Signs Pulse 70 10/17/23 09:00 BP 144/67 H 10/17/23 09:00 BMI result Body Mass Index 39.5 Const General: cooperative, no acute distress, well developed and well groomed Nutritional Appearance: well nourished and obese Orientation/consciousness: oriented to person, oriented to place and oriented to time Limitations: language barrier, ambulation with cane and other limitations HEENT Head: Yes normocephalic and Yes atraumatic Eyes General: appearance normal, both eyes and all related structures Pupils: Equal, round and reactive pupils present Neck Neck: Yes normal visual inspection and Yes no lymphadenopathy Thyroid: Thyroid normal Resp Effort & Inspection: normal respiratory effort and able to speak in complete sentences Auscultation: clear to auscultation bilaterally Cardio Rate: regular rate Rhythm: regular rhythm Heart sounds: Normal, physiologic split S2 sound present Peripheral pulses: radial pulses present and posterior tibial pulses present GI Inspection: No distended, Yes Abdominal panniculus present and Yes obesity Palpation (GI): Soft to palpation, nontender, no guarding, not rigid and No hepatosplenomegaly present Percussion: Yes normal to percussion Auscultation: normal bowel sounds Rectal Exam - Female: deferred Skin General skin exam: no rashes or lesions noted, turgor normal, skin not dry, no jaundice, No spider nevi and no striae Rashes: no rashes Nails: normal Neuro General: oriented to person, oriented to place and oriented to time Cranial nerves: Yes Equal, round and reactive pupils present and Yes Normal hearing present Speech: No Abnormal speech present Extrem General: Yes normal to inspection, No clubbing, No cyanosis and No edema Psych Appearance: grossly normal and well kempt Mental Status: mental status grossly normal Speech and movement: Normal speech and movement present Affect: normal affect Attitude: cooperative Thought process: Normal thought process present and not confabulating Thought content: Normal thought content present Insight: Limited insight present (Psych) Judgement: Limited judgement present (Psych) Results Reviewed Results Reviewed: 09:41Estimated GFR > 60Total Bilirubin 0.4AST 31ALT 30Alkaline Phosphatase 93TSH 1.34 Assessment & Plan Assessment & Plan (1) Chronic idiopathic constipation: Code(s): K59.04 - Chronic idiopathic constipation (2) GERD (gastroesophageal reflux disease): Code(s): K21.9 - Gastro-esophageal reflux disease without esophagitis (3) Family history of colon cancer: Comment: brother Code(s): Z80.0 - Family history of malignant neoplasm of digestive organs (4) DORAN (nonalcoholic steatohepatitis): Comment: Baseline labs and appropriate history .... 62 y/o female here for a follow up on a liver biopsy ordered to assess elevated? SMA and AMA results and elevated LFT's. The patient was last seen by MYSELF? 03/02/18 and at that time she was with her daughter and her female friend.?The pathology report was not conclusive. While she does have early? cirrhosis, it does not point convincingly toward PBC or DORAN. Dr. Jha seems? to think a SPEP is in order and a referral to a specialist at a tertiary care? center (If [facility], [facility]). ?[place] language is [place] and we? are utilizing a telephone translation service #[phone], [place]. ?She? is willing to go to [facility] for a second opinion, which is what Dr. Jha? suggested. ?I will get a SPEP for evidence as also suggested.. LIVER BIOPSY 03/13/18 LIVER, CORE BIOPSY: LIVER WITH MODERATE TO SEVERE CHRONIC HEPATITIS WITH BR IDGING FIBROSIS AND FOCAL NODULAR ARCHITECTURE SUGGESTIVE OF EARLY CIRRHOSIS. The cores show hepatic tissue with architectural distortion, with many portal areas showing marked expansion with a dense chronic inflammatory infiltrate composed primarily of lymphocytes, with a few plasma cells, eosinophils and neutrophils. Small ducts are present, and destructive duct lesions are not identified. Interface activity is focal, mild to moderate. Hepatic lobules show architectural distortion and clustered lymphocytes. Mild, predominantly macrovesicular steatosis is present. Stainable iron is absent. The findings are not specific as to etiology. Note is made of negative viral serologies, as well as positive serum antimitochondrial antibodies and smooth muscle antibodies, raising the possibilities of primary biliary cirrhosis and autoimmune hepatitis, both of which could produce the given histologic findings. Drug- induced or alcohol-related injury should also be considered. Most recent Laboratory Tests 09/22/23 09:41 Estimated GFR > 60 Total Bilirubin 0.4 AST 31 ALT 30 Alkaline Phosphatase 93 TSH 1.34 *.* LAST IMAGING Ultrasound of the abdomen 06/05/23 MPRESSION: 1. Hepatic steatosis. 2. Status post cholecystectomy. 3. Pancreas could not be assessed. Code(s): K75.81 - Nonalcoholic steatohepatitis (DORAN) Plan [place] #Di Live She continues on her omeprazole, Trulance and bentyl with good control of her GI problems. She is due for another screening colonoscopy and she is agreeable to having this done. She really dislikes the volume of the GoLYTELY so will see if we can get something smaller volume like Suprep covered. Her last colonoscopy was in [address] Dickinson and was negative. We had offered Cologuard but after period of time she decided she did not want to do this test so today she says she wants to proceed directly to colonoscopy. There are no prior problems with anesthesia or sedation. She denies any cardiac or respiratory problems. There are no infectious disease problems. She tells me her brother was diagnosed with colon cancer so she is quite overdue! We go over the most recent lab work and her liver appears to be stable but we will get an ultrasound to complete the workup. Orders: Orders Colonoscopy - GI Use Only 10/17/23 Z01.818 - Encounter for other preprocedural examination, Z80.0 - Family history of malignant neoplasm of digestive organs US abdomen complete 10/17/23 R79.89 - Other specified abnormal findings of blood chemistry, K75.81 - Nonalcoholic steatohepatitis (DORAN) Medications: New docusate sodium 100 mg PO DAILY 30 caps 6RF sodium,potassium,mag sulfates 17.5-3.13-1.6 gram (Suprep Bowel Prep Kit) 480 mL orally; 354 mL 0RF bisacodyl (Dulcolax (bisacodyl)) Take 2 tabs twie a day 2 days before procedure and 2 tabs am of procedure orally bedtime; 8 tabs 0RF 2 days Refilled omeprazole 20 mg PO QAM 90 caps 5RF 90 days NS dicyclomine 20 mg PO TID 90 tabs 1RF 30 days plecanatide (Trulance) 3 mg PO DAILY 30 tabs 6RF K59.04 - Chronic idiopathic constipation Coding Level of Care Code Est Pt Level 4 (35768) Diagnoses Chronic idiopathic constipation K59.04 GERD (gastroesophageal reflux disease) K21.9 Family history of colon cancer Z80.0 DORAN (nonalcoholic steatohepatitis) K75.81
[2023-10-17 09:00] VITALS: BP 144/67; PULSE 70; BMI 39.5
== END 2023-10-17 09:30 | disposition home or self-care (01) ==
PROVIDERS: PCP Internal Medicine; Visit Provider Nurse Practitioner
DX: K59.04 Chronic idiopathic constipation (principal); K21.9 Gastro-esophageal reflux disease without esophagitis; Z80.0 Family history of malignant neoplasm of digestive organs; K75.81 Nonalcoholic steatohepatitis (NASH)
CPT/HCPCS: 99214

== ENCOUNTER → 2023-10-17 08:48 | Outpatient (BNVA) | payer OTHER, SELFPAY | PROVIDERS: PCP Internal Medicine; Visit Provider Nurse Practitioner | DX: K59.04 Chronic idiopathic constipation (principal); K21.9 Gastro-esophageal reflux disease without esophagitis; K75.81 Nonalcoholic steatohepatitis (NASH); R79.89 Other specified abnormal findings of blood chemistry; Z80.0 Family history of malignant neoplasm of digestive organs | CPT/HCPCS: 99212 ==

== ENCOUNTER 2023-10-24 09:54 | Outpatient (AMB) | payer OTHER, SELFPAY ==
[2023-10-24 11:20] VITALS: BMI 39.5
--- NOTE | 2023-10-24 11:20 | MHC.OFFVIS ---
Intake Vital Signs 10/24/23 11:20 Height 5 ft 4 in Weight 230 lb BMI 39.5 Intake Visit Reasons: Newprob-Left shoulder pain Intake Note: Crystal is a 67 year old female who presents today for a new problem visit with complaints of left shoulder pain. Hx of left shoulder injection in 2014 for bursitis. Patient reports that she has had ongoing pain for quite some time now, she has pain with all activity. Right RTC Repair 10/10/21 Allergies enalapril [ENALAPRIL] Allergy (Intermediate, Verified 10/24/23 11:25) Cough cephalexin [From KEFLEX] Allergy (Mild, Verified 10/24/23 11:25) rash ciprofloxacin [CIPROFLOXACIN] Allergy (Mild, Verified 10/24/23 11:25) HIVES,RASH levothyroxine sodium [LEVOTHYROXINE SODIUM] Allergy (Mild, Verified 10/24/23 11:25) RASH WITH GENERIC MED nitrofurantoin [NITROFURANTOIN] Allergy (Mild, Verified 10/24/23 11:25) RASH Penicillins [PENICILLINS] Allergy (Mild, Verified 10/24/23 11:25) RASH sulfamethoxazole [From BACTRIM] Allergy (Mild, Verified 10/24/23 11:25) rash trimethoprim [From BACTRIM] Allergy (Mild, Verified 10/24/23 11:25) rash dulaglutide [From Trulicity] Adverse Reaction (Unknown, Verified 10/24/23 11:25) Rash ALL GENERIC MEDS Allergy (Mild, Uncoded 10/24/23 11:25) Rash SHRIMP Allergy (Unknown, Uncoded 10/24/23 11:25) Unknown HPI Newprob-Left shoulder pain HPI Details Crystal is a 67 year old female who presents today for a new problem visit with complaints of left shoulder pain. Hx of left shoulder injection in 2015 for bursitis. Right RTC Repair 10/10/21. She has pain at night and with overhead motion. She denies injury. She is not active. [facility] Medical History (Updated 10/26/23 @ 18:35 by Forrest Alvarez MD) Pain of left thumb Right upper quadrant pain AC (acromioclavicular) arthritis Diabetes mellitus Hypertension Elevated LFTs Osteoarthritis (arthritis due to wear and tear of joints) Physical exam Colon cancer screening Allergic reaction DM2 (diabetes mellitus, type 2) Back pain Right arm pain Vulvar irritation Encounter for annual routine gynecological examination Impacted cerumen of left ear Rash Lower back pain Abnormal laboratory test result Back pain Mild recurrent major depression Thyroid cancer Depression Anxiety Sacroiliac joint disease Lumbar spondylosis GERD without esophagitis Acquired hypothyroidism Benign essential hypertension Constipation Obesity (BMI 30-39.9) Dyslipidemia halfway (current) use of insulin Diabetes type 2, uncontrolled Surgical History (Updated 10/24/23 @ 17:15 by LIZ Farr) Status post right rotator cuff repair Hx of shoulder surgery History of liver biopsy History of esophagogastroduodenoscopy (EGD) Hx of colonoscopy History of cholecystectomy History of bladder surgery H/O thyroidectomy Family History Father No problems noted. Mother Diabetes Sister Lung cancer Brother H/O heart surgery Diabetes Son Epilepsy Social History Household Members: Significant Other Housing: Apartment Unable to assess alcohol history related to: Unknown Alcohol intake: never Patient Tobacco Use Status: Never used Tobacco e-Cigarette/Vaping Use: Never Used Second Hand Smoke Exposure: No service: No Current occupational status: disabled Gender identity: Female Cognitive needs: Yes Hearing needs: No Vision needs: No Female Reproductive History Menstrual Age of Menarche: 13 Physical Exam Vital Signs: BMI result Body Mass Index 39.5 Const General: cooperative and no acute distress Orientation/consciousness: oriented to person and oriented to place HEENT Head: Yes normal to inspection, Yes normocephalic and Yes atraumatic Eyes General: appearance normal, both eyes and all related structures Alignment and Position: alignment normal Conjunctivae: conjunctivae normal EOM: EOMs intact bilaterally Neck Neck: Yes normal visual inspection and Yes trachea midline Resp Other: No rerpiratory distress Effort & Inspection: normal respiratory effort and able to speak in complete sentences Cardio Other: Palpable radial pulse with no appreciable rythmic abnormalities GI Other: No abdominal distension Back/Spine/Pelvis Cervical Spine: normal cervical lordosis and cervical ROM normal Skin General skin exam: no rashes or lesions noted Neuro General: oriented to person, oriented to place and gait normal Extrem Other: Right shoulder with smooth arc of abduction There is a negative EC and ER to 45 deg On the left there is also full ER but + Hawkin's and Neer and scapular recruitment with abduction General: Yes no clubbing, cyanosis or edema Office Procedures Joint Injection/Drain Joint Injection/Drain Details: Injected 1 mL of Decadron and 3 mL 1% lidocaine and 3 mL of 0.25% Marcaine. Site was prepped using aseptic technique. Patient tolerated the procedure well. Primary Site: left shoulder Approach Used: posterolateral Coding 46919 - Large joint Procedure code (CPT) selection complete Results Reviewed Results Reviewed: I personally reviewed relevant radiographs. Left shoulder calcific tendonitis Assessment & Plan Assessment & Plan (1) Painful arc syndrome of left shoulder: Code(s): M75.102 - Unspecified rotator cuff tear or rupture of left shoulder, not specified as traumatic Plan: I Injected her left shoulder today, follow up no sooner than 3 months for repeat injection PT ordered (2) Diabetes type 2, uncontrolled: Code(s): E11.65 - Type 2 diabetes mellitus with hyperglycemia Qualifiers: Glycemic state: with hyperglycemia Qualified Code(s): E11.65 - Type 2 diabetes mellitus with hyperglycemia Plan: I warned her of the hyperglycemic effects of steroids Orders: Orders PT Evaluation and Treatment Today M75.102 - Unspecified rotator cuff tear or rupture of left shoulder, not specified as traumatic Coding Level of Care Code Est Pt Level 4 (30560) Diagnoses Painful arc syndrome of left shoulder M75.102 Uncontrolled type 2 diabetes mellitus with hyperglycemia E11.65 Glycemic state: with hyperglycemia CPT Codes Coding - 79260 Large joint: 78202 - Large joint ([id number])
== END 2023-10-24 12:11 | disposition home or self-care (01) ==
PROVIDERS: PCP Internal Medicine; Visit Provider Orthopaedic Surgery
DX: M75.102 Unspecified rotator cuff tear or rupture of left shoulder, not specified as traumatic (principal); E11.65 Type 2 diabetes mellitus with hyperglycemia
CPT/HCPCS: 20610; 99214

== ENCOUNTER → 2023-10-24 09:54 | Outpatient (BNVA) | payer OTHER, SELFPAY | PROVIDERS: PCP Internal Medicine; Visit Provider Orthopaedic Surgery | DX: M75.102 Unspecified rotator cuff tear or rupture of left shoulder, not specified as traumatic (principal); M25.512 Pain in left shoulder | CPT/HCPCS: 20610; 99212; J0665; J1100 ==

== ENCOUNTER 2023-10-29 07:05 | Outpatient (REF) | payer OTHER, SELFPAY ==
--- NOTE | ~2023-10-29 | US_ITS ---
EXAMINATION: US ABDOMEN COMPLETE CLINICAL INFORMATION: Other specified abnormal findings of blood chemistry. COMPARISON: Ultrasound abdomen limited 06/05/2023. CT abdomen and pelvis 07/11/2020. X-ray KUB 07/09/2019. Ultrasound abdomen complete 01/12/2019. X-ray abdomen 06/10/2017. TECHNIQUE: Real-time imaging of the abdominal viscera. Technically limited study secondary to body habitus. FINDINGS: PANCREAS: Largely obscured by overlapping bowel gas. ABDOMINAL AORTA: The proximal segment is obscured by overlapping bowel gas. The mid and distal segments are normal in caliber. INFERIOR VENA CAVA: Obscured by bowel gas. LIVER: The left lobe is poorly visualized. The remaining liver is normal in size. The liver contour is normal. Parenchymal echogenicity is normal. No focal hepatic lesion. There is no intrahepatic biliary duct dilatation seen. GALLBLADDER: Surgically absent. COMMON BILE DUCT: Imaging limited. Normal in caliber measuring 0.4 cm in diameter. RIGHT KIDNEY: Normal. No hydronephrosis. No renal calculi or focal parenchymal lesions. The kidney measures 10.1 cm in maximum dimension. LEFT KIDNEY: Normal. No hydronephrosis. No renal calculi or focal parenchymal lesions. The kidney measures 10.8 cm in maximum dimension. SPLEEN: Normal. The spleen measures 10.4 cm in maximum dimension. FREE FLUID: None. US/US abdomen complete IMPRESSION: Significantly limited examination, as detailed. No focal hepatic lesion, biliary ductal dilatation or alteration in hepatic echotexture is seen.
== END 2023-10-29 07:06 | disposition home or self-care (01) ==
LOC: HO.US 07:05
PROVIDERS: PCP Internal Medicine; Visit Provider Nurse Practitioner
DX: R79.89 Other specified abnormal findings of blood chemistry (principal); K75.81 Nonalcoholic steatohepatitis (NASH)
CPT/HCPCS: 76700

== ENCOUNTER 2023-11-24 13:36 | Outpatient (AMB) | payer OTHER, SELFPAY ==
--- NOTE | 2023-11-24 13:47 | A.OFFPC_ITS ---
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: No Accompanied by: Self / Same As Patient Allergies enalapril [ENALAPRIL] Allergy (Intermediate, Verified 11/24/23 14:09) Cough cephalexin [From KEFLEX] Allergy (Mild, Verified 11/24/23 14:09) rash ciprofloxacin [CIPROFLOXACIN] Allergy (Mild, Verified 11/24/23 14:09) HIVES,RASH levothyroxine sodium [LEVOTHYROXINE SODIUM] Allergy (Mild, Verified 11/24/23 1 4:09) RASH WITH GENERIC MED nitrofurantoin [NITROFURANTOIN] Allergy (Mild, Verified 11/24/23 14:09) RASH Penicillins [PENICILLINS] Allergy (Mild, Verified 11/24/23 14:09) RASH sulfamethoxazole [From BACTRIM] Allergy (Mild, Verified 11/24/23 14:09) rash trimethoprim [From BACTRIM] Allergy (Mild, Verified 11/24/23 14:09) rash dulaglutide [From Trulicity] Adverse Reaction (Unknown, Verified 11/24/23 14:09) Rash ALL GENERIC MEDS Allergy (Mild, Uncoded 11/24/23 14:09) Rash SHRIMP Allergy (Unknown, Uncoded 11/24/23 14:09) Unknown Medication List - Last Reconciled 11/24/23 by Yael Talbot MD acetaminophen (Tylenol Extra Strength) 500 mg PO Q6H PRN 30 days [adult diapers As directed] alprazolam (Xanax) 1 - 2 mg (1 - 2 x 1 mg) PO ONCE atorvastatin 40 mg PO BEDTIME 90 days azelastine 1 spray intranasal BID betamethasone valerate 0.1% 1 appl topical BID bisacodyl (Dulcolax (bisacodyl)) Take 2 tabs twie a day 2 days before procedure and 2 tabs am of procedure orally bedtime; 2 days blood sugar diagnostic (FreeStyle Lite Strips) 1 strip miscellaneous TID 90 days blood sugar diagnostic (FreeStyle Lite Strips) As directed tests 4X/day blood-glucose meter (FreeStyle Lite Meter kit) As directed clobetasol 0.05% 1 appl topical DAILY cyclobenzaprine 5 mg PO TID PRN cyclobenzaprine 5 mg PO Q8H PRN 5 days diclofenac sodium 1% 2 grams topical QID 1 month dicyclomine 20 mg PO TID 30 days diphenhydramine HCl (Banophen) 25 mg PO BEDTIME PRN 30 days disposable gloves (Biobrane Gloves Large) As directed docusate sodium 100 mg PO DAILY dulaglutide (Trulicity) 0.75 mg (0.5 mL) subcut QWEEK escitalopram oxalate 10 mg PO DAILY flash glucose scanning reader (iPerceptions Carley 2 G[place]ay) As directed flash glucose sensor ([employer]NetCloudyle Carley 2 Sensor kit) As directed change every 14 days humidifiers As directed hydrochlorothiazide 25 mg PO DAILY 90 days NS hydrocortisone 1% (Anti-Itch (hydrocortisone)) 1 appl topical BID PRN 14 days insulin glargine (Lantus Solostar U-100 Insulin) 16 units (0.16 mL) subcut DAILY 30 days ketotifen fumarate 0.025%(0.035%) 0 drps ophthalmic (eye) lancets (Watcher EnterprisesStyle Lancets) 3 times aday levothyroxine (Synthroid) 175 mcg PO lidocaine 5% (Lidoderm) 1 patch topical DAILY PRN MDD remove after 12 hours lidocaine 5% 1 patch topical DAILY losartan 25 mg PO DAILY 90 days metformin 1,000 mg (2 x 500 mg) PO BID mirabegron ER (Myrbetriq) 50 mg PO DAILY naproxen 500 mg PO BID PRN 10 days omeprazole 20 mg PO QAM 90 days NS pen needle, diabetic (BD Ultra-Fine Aarti Pen Needle) 1 ea subcut DAILY plecanatide (Trulance) 3 mg PO DAILY [powerseat lift chair As directed] ramelteon 8 mg PO DAILY silver sulfadiazine 1% (Silvadene) 1 appl topical DAILY sodium,potassium,mag sulfates 17.5-3.13-1.6 gram (Suprep Bowel Prep Kit) 480 mL orally; tacrolimus 0.1% topical [toilet seat elevator As directed] tramadol 50 mg PO BID PRN triamcinolone acetonide 0.025% appl topical underpads (Bed Underpads) Use 1 to 3 once a day prn white petrolatum 41% (Aquaphor Healing) 1 appl topical DAILY PRN 2 weeks [wipes As directed] Tobacco use date assessed: 10/07/23 Dental Screening Dental Screen Date: 10/07/23 HPI HPI Comments History of Present Illness Details This is a 67-year-old female with diabetes mellitus type 2, mild recurrent major depression, hypertension, dyslipidemia and history of thyroid cancer treated with thyroidectomy that comes today complaining of left foot pain that has been present for few months. She has a glass in left foot that is bothering her in the lateral area. Last A1c was mildly elevated but she said that her fasting blood glucose has been running from 90-110. Depression improved with escitalopram. Blood pressure elevated and she is compliant with her hydrochlorothiazide and losartan. I will increase losartan from 25 mg to 50 mg. Blood pressure will be recheck by nurse in 3 weeks. Lipid panel will be order and her LDL goal should be less than 70. Last TSH was normal and this will be repeated. No chest pain or shortness of breath. [facility] Medical History (Updated 11/24/23 @ 14:28 by Yael Talbot MD) Diabetes mellitus Pain of left thumb Right upper quadrant pain AC (acromioclavicular) arthritis Hypertension Elevated LFTs Osteoarthritis (arthritis due to wear and tear of joints) Physical exam Colon cancer screening Allergic reaction DM2 (diabetes mellitus, type 2) Back pain Right arm pain Vulvar irritation Encounter for annual routine gynecological examination Impacted cerumen of left ear Rash Lower back pain Abnormal laboratory test result Back pain Mild recurrent major depression Thyroid cancer Depression Anxiety Sacroiliac joint disease Lumbar spondylosis GERD without esophagitis Acquired hypothyroidism Benign essential hypertension Constipation Obesity (BMI 30-39.9) Dyslipidemia penitentiary (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 Mother Diabetes Sister Lung cancer Brother H/O heart surgery Diabetes Son Epilepsy Social History Household Members: Significant Other Housing: Apartment Unable to assess alcohol history related to: Unknown Alcohol intake: never Patient Tobacco Use Status: Never used Tobacco e-Cigarette/Vaping Use: Never Used Second Hand Smoke Exposure: No service: No Current occupational status: disabled Gender identity: Female Cognitive needs: Yes Hearing needs: No Vision needs: No Female Reproductive History Menstrual Age of Menarche: 13 Questionnaire Thrive Questionnaire Date Thrive assessed: 10/07/23 DENIS-7 AMB Questionnaire DENIS-7 Date DENIS - 7 assessed: 10/07/23 Source: Developed by Drs. Leland Gregorio, Elda Quinteros, Lamin Pierre and colleagues, with an educational edilberto from [employer]. Review of Systems Const All systems reviewed & are unremarkable except as noted in HPI and below Eyes Reports no additional complaints, Denies change in vision and Denies other visual disturbances Card Denies chest pain at rest, Denies chest pain with activity, Denies edema, Denies irregular heart rhythm, Denies claudication, Denies dyspnea, Denies dyspnea on exertion, Denies orthopnea, Denies paroxysmal nocturnal dyspnea and Denies slow heart rate Resp Denies cough, Denies dyspnea and Denies dyspnea on exertion Physical exam (Primary Care) Vital Signs: Last Vital Signs BP 170/72 H 11/24/23 13:48 BMI result Body Mass Index 38.4 Tobacco/Smoking Status: Tobacco use Status Tobacco use date assessed 10/07/23 11/24/23 13:54 Patient Tobacco Use Status Never used Tobacco 11/24/23 13:54 e-Cigarette/Vaping Use Never Used 11/24/23 13:54 Thrive Assessment: Date of Thrive Assessment Date Thrive assessed 10/07/23 11/24/23 13:54 Resp Effort & Inspection: normal respiratory effort Auscultation: clear to auscultation bilaterally Cardio Jugular venous distension: no JVD Rate: regular rate Rhythm: regular rhythm Heart sounds: S1 normal heart sound present and S2 normal heart sound present Extrem General: Yes full ROM Assessment and Plan Assessment & Plan (1) Foreign body in left foot: Code(s): S90.852A - Superficial foreign body, left foot, initial encounter Qualifiers: Encounter type: subsequent encounter Qualified Code(s): S90.852D - Superficial foreign body, left foot, subsequent encounter Plan: X-ray ordered. (2) Thyroid cancer: Comment: w/thyroidectomy Code(s): C73 - Malignant neoplasm of thyroid gland Plan: Continue levothyroxine. Monitor TSH. (3) Mild recurrent major depression: Code(s): F33.0 - Major depressive disorder, recurrent, mild Plan: Continue escitalopram. (4) Essential hypertension: Code(s): I10 - Essential (primary) hypertension Plan: Continue hydrochlorothiazide. Increase losartan to 50 mg. Blood pressure goal is equal or less than 130/80. Recheck blood pressure with nurse in 3 weeks. (5) Diabetes mellitus: Code(s): E11.9 - Type 2 diabetes mellitus without complications Qualifiers: Diabetes mellitus type: type 2 Diabetes mellitus snf insulin use: with director long term care use Diabetes mellitus complication status: without complication Qualified Code(s): E11.9 - Type 2 diabetes mellitus without complications; Z79.4 - penitentiary (current) use of insulin Plan: Continue Lantus, metformin and Trulicity. A1c goal is equal or less than 7%. (6) Dyslipidemia: Code(s): E78.5 - Hyperlipidemia, unspecified Orders: Orders PT Evaluation and Treatment 01/17/21 M19.011 - Primary osteoarthritis, right shoulder, M75.41 - Impingement syndrome of right shoulder Lipid Panel 2 Months E78.5 - Hyperlipidemia, unspecified Vitamin D 25-OH Total 2 Months E55.9 - Vitamin D deficiency, unspecified XR foot LT 2V Today S90.852A - Superficial foreign body, left foot, initial encounter Microalbumin, Random (w Creat) 2 Months E11.9 - Type 2 diabetes mellitus wi thout complications Thyroid Stimulating Hormone 2 Months C73 - Malignant neoplasm of thyroid gland Comprehensive Eleele. Panel Fast 2 Months E11.65 - Type 2 diabetes mellitus with hyperglycemia Referrals Diabetes Education Referral E11.65 - Type 2 diabetes mellitus with hyperglycemia Medications: New losartan 50 mg PO DAILY 90 days 90 tabs 1RF I10 - Essential (primary) hypertension famotidine 20 mg PO DAILY 90 days 90 tabs 1RF Refilled acetaminophen (Tylenol Extra Strength) 500 mg PO Q6H 30 days PRN 120 tabs 2RF fever or pain Discontinued losartan Discontinued Reason: Patient Completed Course 25 mg PO DAILY 90 days 90 tabs 3RF I10 - Essential (primary) hypertension omeprazole Discontinued Reason: Patient Completed Course 20 mg PO QAM 90 days 90 caps 5RF NS Coding Level of Care Code Est Pt Level 4 (83582) Diagnoses Foreign body in left foot, subsequent encounter S90.852D Encounter type: subsequent encounter Thyroid cancer C73 Mild recurrent major depression F33.0 Essential hypertension I10 Type 2 diabetes mellitus without complication, with long-term current use of insulin E11.9; Z79.4 Diabetes mellitus type: type 2 Diabetes mellitus snf insulin use: with snf use Diabetes mellitus complication status: without complication Dyslipidemia E78.5 Time Spent (min) 24
[2023-11-24 13:48] VITALS: BP 170/72; BMI 38.4
== END 2023-11-24 14:19 | disposition home or self-care (01) ==
PROVIDERS: PCP Internal Medicine; Visit Provider Internal Medicine
DX: S90.852D Superficial foreign body, left foot, subsequent encounter (principal); C73 Malignant neoplasm of thyroid gland; F33.0 Major depressive disorder, recurrent, mild; E11.9 Type 2 diabetes mellitus without complications; I10 Essential (primary) hypertension; Z79.4 Long term (current) use of insulin; E78.5 Hyperlipidemia, unspecified
CPT/HCPCS: 99214

== ENCOUNTER 2023-11-24 14:25 | Outpatient (REF) | payer OTHER, SELFPAY ==
--- NOTE | ~2023-11-24 | XR_ITS ---
EXAMINATION: XR FOOT, LEFT CLINICAL INFORMATION: Superficial foreign body in the left foot COMPARISON: 05/02/2023 TECHNIQUE: AP, lateral, and oblique views of the left foot. FINDINGS: The bones and soft tissues are normal. No fracture. Alignment is anatomic. Joint spaces are maintained. No evidence of foreign bodies. Soft tissues unremarkable. There is plantar and posterior calcaneal spurring. XR/XR foot LT 2V IMPRESSION: No foreign bodies identified. Calcaneal spurring.
== END 2023-11-24 14:26 | disposition home or self-care (01) ==
LOC: HO.XRAY 14:25
PROVIDERS: PCP Internal Medicine; Visit Provider Internal Medicine
DX: S90.852A Superficial foreign body, left foot, initial encounter (principal)
CPT/HCPCS: 73620

== ENCOUNTER 2023-11-29 16:23 | Emergency (ER) | payer OTHER, SELFPAY ==
--- NOTE | ~2023-11-29 | XR_ITS ---
EXAMINATION: XR FOOT, LEFT CLINICAL INFORMATION: Plantar heel pain COMPARISON: Left foot radiographs 11/24/2023. TECHNIQUE: AP, lateral, and oblique views of the left foot. FINDINGS: No evidence of acute fracture or malalignment. Redemonstrated accessory navicular bone and os peroneum. Joint spaces are preserved. Normal bone mineralization. Unchanged moderate posterior and small plantar calcaneal enthesophytes. Unchanged soft tissue prominence of the lateral/forefoot overlying the fifth metatarsal heads, may be physiologic. XR/XR foot LT min 3V IMPRESSION: 1. No evidence of acute fracture or malalignment of the left foot or significant interval change compared to 11/24/2023. 2. Unchanged moderate posterior and small plantar calcaneal enthesophytes.
[2023-11-29 16:51] VITALS: BP 150/60; PULSE 71; RESP 19; TEMP 36.6; O2SAT 99; BMI 37.0
--- NOTE | 2023-11-29 16:55 | ED.GENADULT ---
HPI - General Adult General Chief complaint: Extremity Injury, Lower Stated complaint: LT foot pain Time Seen by Provider: 11/29/23 17:38 Source: patient Mode of arrival: ambulatory Limitations: no limitations History of Present Illness HPI narrative: Patient is a 59-year-old female who presents emergency department for evaluation of left foot pain. Reports has been ongoing for 8 months. She states the pain is worse while ambulating, particularly ambulating when barefoot. denies numbness or tingling. Denies any foot wounds or lesions. Related Data Home Medications ?Medication ?Instructions ?Recorded ?Confirmed escitalopram oxalate 10 mg tablet 10 mg PO DAILY 06/26/20 11/24/23 clobetasol 0.05 % topical ointment 1 appl topical DAILY 04/02/22 11/24/23 azelastine 137 mcg (0.1 %) nasal 1 spray intranasal BID 07/02/22 11/24/23 spray aerosol betamethasone valerate 0.1 % 1 appl topical BID 07/02/22 11/24/23 topical cream ketotifen fumarate 0.025 % (0.035 0 drp ophthalmic (eye) 07/02/22 11/24/23 %) eye drops levothyroxine 175 mcg tablet 175 mcg PO 07/31/22 11/24/23 (Synthroid) tacrolimus 0.1 % topical ointment topical 11/26/22 11/24/23 triamcinolone acetonide 0.025 % appl topical 11/26/22 11/24/23 topical cream ramelteon 8 mg tablet 8 mg PO DAILY 12/27/22 11/24/23 mirabegron 50 mg tablet,extended 50 mg PO DAILY 10/17/23 11/24/23 release 24 hr (Myrbetriq) Previous Rx's ?Medication ?Instructions ?Recorded hydrocortisone 1 % topical cream 1 appl topical BID PRN skin 09/01/20 (Anti-Itch (hydrocortisone)) irritation 14 days #28.35 grams alprazolam 1 mg tablet (Xanax) 1 - 2 mg (1 - 2 x 1 mg) PO ONCE To 03/20/21 be taken 1 hour before MRI #2 tabs toilet seat elevator #1 ea 04/10/21 lancets 28 gauge (FreeStyle #300 ea 10/16/21 Lancets) white petrolatum 41 % topical 1 appl topical DAILY PRN dry skin 10/31/21 ointment (Aquaphor Healing) 2 weeks #20 grams humidifiers #1 ea 07/12/22 diclofenac sodium 1 % topical gel 2 g topical QID 1 month #100 grams 09/03/22 lidocaine 5 % topical patch 1 patch topical DAILY PRN pain #30 11/12/22 (Lidoderm) ea disposable gloves (Biobrane Gloves #100 ea 12/31/22 Large) adult diapers #240 ea 01/07/23 underpads (Bed Underpads) #150 ea 01/07/23 wipes #200 ea 01/07/23 pen needle, diabetic 32 gauge x 1 ea subcut DAILY #30 ea 03/28/23 (BD Ultra-Fine Aarti Pen Needle) flash glucose sensor (FreeStyle #2 ea 04/08/23 Carley 2 Sensor kit) flash glucose scanning reader #1 ea 04/23/23 (FreeStyle [place] 2 [place]) cyclobenzaprine 5 mg tablet 5 mg PO Q8H PRN pain (scale score 05/12/23 7-10) 5 days #14 tabs naproxen 500 mg tablet 500 mg PO BID PRN pain 10 days #20 05/12/23 tabs blood sugar diagnostic (FreeStyle 1 strip miscellaneous TID 90 days 06/04/23 Lite Strips) #300 strips hydrochlorothiazide 25 mg tablet 25 mg PO DAILY 90 days #90 tabs 06/11/23 silver sulfadiazine 1 % topical 1 appl topical DAILY #50 grams 06/17/23 cream (Silvadene) powerseat lift chair #1 ea 06/25/23 dulaglutide 0.75 mg/0.5 mL 0.75 mg (0.5 mL) subcut QWEEK #6 mL 08/21/23 subcutaneous pen injector (Trulicity) metformin 500 mg tablet 1,000 mg (2 x 500 mg) PO BID #360 08/21/23 tabs blood sugar diagnostic (FreeStyle #100 ea 09/25/23 Lite Strips) diphenhydramine HCl 25 mg capsule 25 mg PO BEDTIME PRN allergic 09/25/23 (Banophen) reaction 30 days #20 caps atorvastatin 40 mg tablet 40 mg PO BEDTIME 90 days #90 tabs 10/07/23 blood-glucose meter (FreeStyle #1 ea 10/07/23 Lite Meter kit) insulin glargine 100 unit/mL (3 16 unit (0.16 mL) subcut DAILY 30 10/07/23 mL) subcutaneous pen (Lantus days #4.8 mL Solostar U-100 Insulin) cyclobenzaprine 5 mg tablet 5 mg PO TID PRN muscle spasm #10 10/09/23 tabs tramadol 50 mg tablet 50 mg PO BID PRN pain #10 tabs 10/15/23 bisacodyl 5 mg tablet,delayed See Rx Instructions PO BEDTIME 2 10/17/23 release (Dulcolax (bisacodyl)) days #8 tabs dicyclomine 20 mg tablet 20 mg PO TID 30 days #90 tabs 10/17/23 docusate sodium 100 mg capsule 100 mg PO DAILY #30 caps 10/17/23 lidocaine 5 % topical patch 1 patch topical DAILY #15 ea 10/17/23 plecanatide 3 mg tablet (Trulance) 3 mg PO DAILY #30 tabs 10/17/23 sodium,potassium,mag sulfates 17.5 480 ml PO .COMPLEX #354 mL 10/17/23 gram-3.13 gram-1.6 gram oral soln (Suprep Bowel Prep Kit) acetaminophen 500 mg tablet 500 mg PO Q6H PRN fever or pain 30 11/24/23 (Tylenol Extra Strength) days #120 tabs famotidine 20 mg tablet 20 mg PO DAILY 90 days #90 tabs 11/24/23 losartan 50 mg tablet 50 mg PO DAILY 90 days #90 tabs 11/24/23 Allergies Allergy/AdvReac Type Severity Reaction Status Date / Time enalapril [ENALAPRIL] Allergy Intermediate Cough Verified 11/29/23 16:55 cephalexin [From KEFLEX] Allergy Mild rash Verified 11/29/23 16:55 ciprofloxacin [CIPROFLOXACIN] Allergy Mild HIVES,RASH Verified 11/29/23 16:55 levothyroxine sodium Allergy Mild RASH WITH Verified 11/29/23 16:55 [LEVOTHYROXINE SODIUM] GENERIC MED nitrofurantoin Allergy Mild RASH Verified 11/29/23 16:55 [NITROFURANTOIN] Penicillins [PENICILLINS] Allergy Mild RASH Verified 11/29/23 16:55 sulfamethoxazole Allergy Mild rash Verified 11/29/23 16:55 [From BACTRIM] trimethoprim [From BACTRIM] Allergy Mild rash Verified 11/29/23 16:55 dulaglutide [From Trulicity] AdvReac Unknown Rash Verified 11/29/23 16:55 ALL GENERIC MEDS Allergy Mild Rash Uncoded 11/29/23 16:55 SHRIMP Allergy Unknown Unknown Uncoded 11/29/23 16:55 Review of Systems Review of Systems: Yes all other systems are reviewed and are negative PMFSH Past Medical History Attestation statement: The following information was validated with the patient. Source: old records reviewed Medical History Diabetes mellitus Pain of left thumb Right upper quadrant pain AC (acromioclavicular) arthritis Hypertension Elevated LFTs Osteoarthritis (arthritis due to wear and tear of joints) Physical exam Colon cancer screening Allergic reaction DM2 (diabetes mellitus, type 2) Back pain Right arm pain Vulvar irritation Encounter for annual routine gynecological examination Impacted cerumen of left ear Rash Lower back pain Abnormal laboratory test result Back pain Mild recurrent major depression Thyroid cancer Depression Anxiety Sacroiliac joint disease Lumbar spondylosis GERD without esophagitis Acquired hypothyroidism Benign essential hypertension Constipation Obesity (BMI 30-39.9) Dyslipidemia residential (current) use of insulin Diabetes type 2, uncontrolled Surgical History Status post right rotator cuff repair Hx of shoulder surgery History of liver biopsy History of esophagogastroduodenoscopy (EGD) Hx of colonoscopy History of cholecystectomy History of bladder surgery H/O thyroidectomy Family History Family History Father No problems noted. Mother Diabetes Sister Lung cancer Brother H/O heart surgery Diabetes Son Epilepsy Social History Social History Household Members: Significant Other Housing: Apartment Unable to assess alcohol history related to: Unknown Alcohol intake: never Patient Tobacco Use Status: Never used Tobacco e-Cigarette/Vaping Use: Never Used Second Hand Smoke Exposure: No Advance Directives: No Advance Directives Information Provided: No Do you have a plan to hurt others: No Plan service: No Current occupational status: disabled Gender identity: Female Cognitive needs: Yes Hearing needs: No Vision needs: No Physical Exam ED Vital Signs: Vital Signs - 24 hr 11/29/23 16:51 Temperature 98 F Pulse Rate 71 Respiratory Rate 19 Blood Pressure 150/60 H Pulse Oximetry 99 Oxygen Delivery Method Room Air BMI result Body Mass Index 37.0 Appearance: Alert.?Oriented to person, place and time. No acute distress.?Normal affect. Neck: Normal inspection.? Neck supple.?? CVS: Heart sounds normal. Normal heart rate and rhythm.? Pulses normal.?? Respiratory: No respiratory distress.? Lung sounds clear to auscultation bilaterally??? Skin: Skin warm and dry.? Normal skin color.? Extremities: No lower extremity edema.? No calf ttp. 2+ DP/PT pulse bilaterally. Tenderness upon palpation of the left heel, no erythema warmth lesions or wounds. Neuro: Moves all extremities spontaneously. Sensation intact bilaterally. Ambulates with Mildly antalgic gait and use of a cane Medical Decision Making Medical Decision Making MDM Narrative: patient is a 67-year-old female Past medical history of type 2 diabetes, depression, hypertension, dyslipidemia, history of thyroid cancer s/p thyroidectomy, osteoarthritis, GERD, who presents emergency department for evaluation of atraumatic left foot pain as per HPI. XR reveals no acute fracture dislocation, there is however calcaneal spurring, based on her history and these findings concern for plantar fasciitis as etiology for pain. We discussed conservative treatment including NSAIDs, [id number] shoe inserts, ice/heat, supportive footwear, and outpatient follow-up with PCP/ Podiatry and discussed the possibility of orthotics. All questions were answered. Stable for discharge Differential Diagnosis Differential Diagnoses: The differential diagnosis associated with the presentation includes ( calcaneal spur, plantar fasciitis, neuropathy, suspect less likely to be acute fracture or dislocation it is atraumatic) Independent Interpretation I performed an independent interpretation of an: Plain X-Ray ( no acute fracture or dislocation) Radiology Impression Discussion of test interpretation with radiology: I have reviewed the radiologist's reading. Radiologist Impression: XR/XR foot LT min 3V IMPRESSION: 1. No evidence of acute fracture or malalignment of the left foot or significant interval change compared to 11/24/2023. 2. Unchanged moderate posterior and small plantar calcaneal enthesophytes. External Record Review External record reviewed: Outpatient record Prescription Management I considered prescription management with: Pain Medication Discharge Plan Discharge Clinical Impression: Plantar fasciitis of left foot Patient Disposition: Home, Self-Care Instructions: Plantar Fasciitis (ED), Plantar Fasciitis Exercises (ED) Additional Instructions: You can take ibuprofen 200 mg, 3 tablets (600mg) every 6-8 hours as needed for pain, in addition to Tylenol 500 mg, 2 tablets (1,000mg) every 4-6 hours as needed for pain, but not to exceed 3 doses daily (3,000mg).? Consider purchasing new shoes as may require additional support to take the pressure off of this area. At the pharmacy they cell [id number] gel inserts that you can place into your shoe that may also help with this. Contact your primary care provider to arrange for a follow-up visit. You may require a referral to a event set up specialist; a sales and marketing associate. Sometimes they can make specialized shoe inserts referred to as orthotics. Try to avoid excessive walking or standing on your feet for prolonged periods as this can increase the pain. You can apply ice to the area for 10-15 minutes Prescriptions: No Action hydrocortisone [Anti-Itch (HC)] 1 % cream 1 appl topical BID PRN (Reason: skin irritation) 14 Days Qty: 28.35 1RF alprazolam [Xanax] 1 mg tablet 1 - 2 mg PO ONCE Qty: 2 0RF (DME) toilet seat elevator See Rx Instructions .Route .MEDSUPPLY Qty: 1 0RF Rx Instructions: As directed (DME) lancets [FreeStyle Lancets] 28 gauge misc See Rx Instructions .ROUTE .MEDSUPPLY Qty: 300 6RF Rx Instructions: 3 times aday Aquaphor Healing 41 % ointment 1 appl topical DAILY PRN (Reason: dry skin) 14 Days Qty: 20 0RF (DME) humidifiers Misc See Rx Instructions .Route Qty: 1 0RF Rx Instructions: As directed diclofenac sodium 1 % gel 2 g topical QID 30 Days Qty: 100 4RF Rx Instructions: apply to single elbow, wrist or hand; for hand includes palm/fingers/back of hand (DME) disposable gloves [Biobrane Gloves Large] Misc See Rx Instructions .Route Qty: 100 6RF Rx Instructions: As directed (DME) adult diapers large See Rx Instructions .Route .MEDSUPPLY Qty: 240 11RF Rx Instructions: As directed (DME) underpads [Bed Underpads] Pad See Rx Instructions .Route Qty: 150 11RF Rx Instructions: Use 1 to 3 once a day prn (DME) wipes See Rx Instructions .Route .MEDSUPPLY Qty: 200 11RF Rx Instructions: As directed (DME) FreeStyle [place]ley 2 Sensor Kit See Rx Instructions .Route Qty: 2 11RF Rx Instructions: As directed change every 14 days (DME) FreeStyle [place] 2 [place] Misc See Rx Instructions .Route Qty: 1 0RF Rx Instructions: As directed cyclobenzaprine 5 mg tablet 5 mg PO Q8H PRN (Reason: pain (scale score 7-10)) 5 Days Qty: 14 0RF naproxen 500 mg tablet 500 mg PO BID PRN (Reason: pain) 10 Days Qty: 20 0RF FreeStyle Lite Strips Strip 1 strip miscellaneous TID 90 Days Qty: 300 11RF hydrochlorothiazide 25 mg tablet 25 mg PO DAILY 90 Days Qty: 90 4RF (DME) powerseat lift chair See Rx Instructions .Route .MEDSUPPLY Qty: 1 0RF Rx Instructions: As directed metformin 500 mg tablet 1,000 mg PO BID Qty: 360 3RF Trulicity 0.75 mg/0.5 mL pen injector 0.75 mg subcut QWEEK Qty: 6 4RF diphenhydramine HCl [Banophen] 25 mg capsule 25 mg PO BEDTIME PRN (Reason: allergic reaction) 30 Days Qty: 20 2RF tramadol 50 mg tablet 50 mg PO BID PRN (Reason: pain) Qty: 10 0RF lidocaine 5 % adhesive patch,medicated 1 patch topical DAILY Qty: 15 0RF Rx Instructions: leave on most painful area for up to 12 hrs lidocaine [Lidoderm] 5 % adhesive patch,medicated 1 patch topical DAILY MDD remove after 12 hours PRN (Reason: pain) Qty: 30 0RF Rx Instructions: leave on most painful area for up to 12 hrs cyclobenzaprine 5 mg tablet 5 mg PO TID PRN (Reason: muscle spasm) Qty: 10 0RF silver sulfadiazine [Silvadene] 1 % cream 1 appl topical DAILY Qty: 50 0RF Rx Instructions: apply a 1.5 mm thickness levothyroxine [Synthroid] 175 mcg tablet 175 mcg PO insulin glargine [Lantus Solostar U-100 Insulin] 100 unit/mL (3 mL) insulin pen 16 unit subcut DAILY 30 Days Qty: 4.8 4RF atorvastatin 40 mg tablet 40 mg PO BEDTIME 90 Days Qty: 90 1RF (DME) blood-glucose meter [FreeStyle Lite Meter] Kit See Rx Instructions .Route Qty: 1 0RF Rx Instructions: As directed acetaminophen [Tylenol Extra Strength] 500 mg tablet 500 mg PO Q6H PRN (Reason: fever or pain) 30 Days Qty: 120 2RF losartan 50 mg tablet 50 mg PO DAILY 90 Days Qty: 90 1RF famotidine 20 mg tablet 20 mg PO DAILY 90 Days Qty: 90 1RF escitalopram oxalate 10 mg tablet 10 mg PO DAILY clobetasol 0.05 % ointment 1 appl topical DAILY Rx Instructions: Use daily for 2 weeks, then every other day for 2 wks, then twice a week azelastine 137 mcg (0.1 %) aerosol,spray 1 spray intranasal BID betamethasone valerate 0.1 % cream 1 appl topical BID ketotifen fumarate 0.025 % (0.035 %) drops 0 drp ophthalmic (eye) tacrolimus 0.1 % ointment topical triamcinolone acetonide 0.025 % cream topical ramelteon 8 mg tablet 8 mg PO DAILY (DME) FreeStyle Lite Strips Strip See Rx Instructions .Route Qty: 100 6RF Rx Instructions: As directed tests 4X/day Myrbetriq 50 mg tablet extended release 24 hr 50 mg PO DAILY Trulance 3 mg tablet 3 mg PO DAILY Qty: 30 6RF dicyclomine 20 mg tablet 20 mg PO TID 30 Days Qty: 90 1RF docusate sodium 100 mg capsule 100 mg PO DAILY Qty: 30 6RF sodium,potassium,mag sulfates [Suprep Bowel Prep Kit] 17.5-3.13-1.6 gram recon soln 480 ml PO .COMPLEX Qty: 354 0RF Rx Instructions: 480 mL orally; bisacodyl [Dulcolax (bisacodyl)] 5 mg tablet,delayed release (DR/EC) See Rx Instructions PO BEDTIME 2 Days Qty: 8 0RF Rx Instructions: Take 2 tabs twie a day 2 days before procedure and 2 tabs am of procedure orally bedtime; pen needle, diabetic [BD Ultra-Fine Aarti Pen Needle] 32 gauge x 5/32 needle 1 ea subcut DAILY Qty: 30 11RF Referrals: Yael Alex MD [Primary Care Provider] - Print Language: Citizen [place]
[2023-11-29 19:29] VITALS: BP 150/60; PULSE 71; RESP 18; TEMP 36.6; O2SAT 99
== END 2023-11-29 19:31 | disposition home or self-care (01) ==
PROVIDERS: Emergency Provider Emergency Medicine Emergency Medical Services; PCP Internal Medicine
DX: M72.2 Plantar fascial fibromatosis (principal); E11.9 Type 2 diabetes mellitus without complications; I10 Essential (primary) hypertension; E78.5 Hyperlipidemia, unspecified; Z79.4 Long term (current) use of insulin; Z79.84 Long term (current) use of oral hypoglycemic drugs; Z79.85 Long-term (current) use of injectable non-insulin antidiabetic drugs; Z79.899 Other long term (current) drug therapy; Z79.02 Long term (current) use of antithrombotics/antiplatelets
CPT/HCPCS: 73630; 99282; 99283

== ENCOUNTER 2023-12-16 10:00 | Outpatient (RCR) | payer OTHER, SELFPAY ==
--- NOTE | 2023-11-18 10:46 | MHC.PT.EP ---
[facility] [place] [facility] [place] [facility] [place] [facility] [address] Killian Koch [address] [phone] F: [phone] F: [phone] F: [phone] F: [phone] Physical Therapy Plan of Care Date of Evaluation: 11/18/23 Date of Surgery: Diagnosis: LEFT shoulder rotator cuff tear LEFT shoulder painful arc syndrome (MD Dx) (RS) Assessment: Patient is a pleasant 67 y.o. Mongolian speaking female who is referred to PT by Dr. Forrest Alvarez MD, with Dx of LEFT shoulder rotator cuff tear LEFT shoulder painful arc syndrome. She is presenting with capsular pattern, concern fro developing adhesive capsulitis. There is no imaging to confirm or refute RTC tear, only x-ray image shows calcific tendonitis. Patient impairments include poor posture, pain, limited ROM of shoulder, weakness of shoulder. Patient current functional limitations are difficulty reaching overhead, cleaning bathtub, cooking, reaching to cabinet, putting on undershirts. Patient will benefit from skilled PT to address aforementioned impairments and functional limitations to meet established goals. Frequency and Duration: The patient will be seen 1-2x/week for 4 weeks Short Term Goals: 2 weeks Patient demonstrates consistency and independence with HEP to self manage symptoms. Fdc Goals: 4 weeks Patient presents with increased LEFT shoulder flexion AROM 140 degrees to be able to reach to shelf to get cup/plate. Patient presents with increased LEFT shoulder flexion AROM ER 50 degrees to be able to reach behind back to put on under shirts independently. Treatment Plan: Modalities to reduce pain, spasms and effusion. Manual therapy to restore motion and function. Therapeutic exercise to improve strength and flexibility. Neuromuscular re-education for posture and balance. Therapeutic activities to return to functional activities of daily living. Electronically signed by: Vinayak High, PT, DPT Please sign and return to therapist. Thank you for your referral.
--- NOTE | 2024-01-22 09:39 | MHC.PT.DC ---
[facility] [place] Office [place] Office [place] Office [address] Killian Koch [address] [phone] F: [phone] F: [phone] F: [phone] F: [phone] Physical Therapy Discharge Report Diagnosis: LEFT shoulder rotator cuff tear LEFT shoulder painful arc syndrome ( Dx) (RS) Date of Surgery: Date of Evaluation: 11/18/23 Date of Discharge: 01/22/24 Treatments to Date: 4 Cancellations to Date: 1 No Shows to Date: 0 Discharge Status: Improved Function Independent with HEP Discharge Summary: Pt was last treated on 12/16/2023, the assessment reads, Crystal needs cues throughout session for neutral neck and shoulder girdle posture as she tends to slouch into greater thoracic kyphosis and thus anterior positioned shoulders that more easily impinge. She shows improvement in her ROM and strength and she feels she can manage her symptoms with independent HEP. Electronically signed by: Vinayak High, PT, DPT Please sign and return to therapist. Thank you for your referral.
== END 2024-01-22 09:39 | disposition home or self-care (01) ==
LOC: HO.PT 10:00
PROVIDERS: PCP Internal Medicine; Visit Provider Orthopaedic Surgery
DX: M75.102 Unspecified rotator cuff tear or rupture of left shoulder, not specified as traumatic (principal)
CPT/HCPCS: 97110; 97140; 97162

== ENCOUNTER 2023-12-25 09:18 | Outpatient (AMB) | payer OTHER, SELFPAY ==
--- NOTE | 2023-12-25 09:25 | A.OFFPC_ITS ---
Vital Signs 12/25/23 09:28 12/25/23 09:46 Height 5 ft 4 in Weight 223 lb BMI 38.3 BP 142/76 H 138/80 Blood Pressure Location Lt brachial Lt brachial Position Sitting Sitting Intake Visit Reasons: LT foot pain Intake Note: Patient here for [facility] follow up left foot pain Pneumatic Tool Repairer Required: No Accompanied by: EXECUTIVE VICE PRESIDENT BUSINESS DEVELOPMENT Allergies enalapril [ENALAPRIL] Allergy (Intermediate, Verified 12/25/23 09:46) Cough cephalexin [From KEFLEX] Allergy (Mild, Verified 12/25/23 09:46) rash ciprofloxacin [CIPROFLOXACIN] Allergy (Mild, Verified 12/25/23 09:46) HIVES,RASH levothyroxine sodium [LEVOTHYROXINE SODIUM] Allergy (Mild, Verified 12/25/23 09:46) RASH WITH GENERIC MED nitrofurantoin [NITROFURANTOIN] Allergy (Mild, Verified 12/25/23 09:46) RASH Penicillins [PENICILLINS] Allergy (Mild, Verified 12/25/23 09:46) RASH sulfamethoxazole [From BACTRIM] Allergy (Mild, Verified 12/25/23 09:46) rash trimethoprim [From BACTRIM] Allergy (Mild, Verified 12/25/23 09:46) rash dulaglutide [From Trulicity] Adverse Reaction (Unknown, Verified 12/25/23 09:46) Rash ALL GENERIC MEDS Allergy (Mild, Uncoded 12/25/23 09:46) Rash SHRIMP Allergy (Unknown, Uncoded 12/25/23 09:46) Unknown Medication List - Last Reconciled 12/25/23 by Yael Talbot MD acetaminophen (Tylenol Extra Strength) 500 mg PO Q6H PRN 30 days [adult diapers As directed] [air conditioner As directed] atorvastatin 40 mg PO BEDTIME 90 days azelastine 1 spray intranasal BID betamethasone valerate 0.1% 1 appl topical BID bisacodyl (Dulcolax (bisacodyl)) Take 2 tabs twie a day 2 days before procedure and 2 tabs am of procedure orally bedtime; 2 days blood sugar diagnostic (FreeStyle Lite Strips) 1 strip miscellaneous TID 90 days blood sugar diagnostic (FreeStyle Lite Strips) As directed tests 4X/day blood-glucose meter (FreeStyle Lite Meter kit) As directed cane As directed clobetasol 0.05% 1 appl topical DAILY cyclobenzaprine 5 mg PO TID PRN cyclobenzaprine 5 mg PO Q8H PRN 5 days diclofenac sodium 1% 2 grams topical QID 1 month dicyclomine 20 mg PO TID 30 days diphenhydramine HCl (Banophen) 25 mg PO BEDTIME PRN 30 days disposable gloves (Biobrane Gloves Large) As directed docusate sodium 100 mg PO DAILY dulaglutide (Trulicity) 0.75 mg (0.5 mL) subcut QWEEK escitalopram oxalate 10 mg PO DAILY famotidine 20 mg PO DAILY 90 days flash glucose scanning reader (KDW Carley 2 [place]) As directed flash glucose sensor ([employer]*yle Carley 2 Sensor kit) As directed change every 14 days humidifiers As directed hydrochlorothiazide 25 mg PO DAILY 90 days NS hydrocortisone 1% (Anti-Itch (hydrocortisone)) 1 appl topical BID PRN 14 days insulin glargine (Lantus Solostar U-100 Insulin) 16 units (0.16 mL) subcut DAILY 30 days ketotifen fumarate 0.025%(0.035%) 0 drps ophthalmic (eye) lancets (FreeStyle Lancets) 3 times aday levothyroxine (Synthroid) 175 mcg PO lidocaine 5% (Lidoderm) 1 patch topical DAILY PRN MDD remove after 12 hours lidocaine 5% 1 patch topical DAILY losartan 50 mg PO DAILY 90 days metformin 1,000 mg (2 x 500 mg) PO BID mirabegron ER (Myrbetriq) 50 mg PO DAILY naproxen 500 mg PO BID PRN 10 days pen needle, diabetic (BD Ultra-Fine Aarti Pen Needle) 1 ea subcut DAILY plecanatide (Trulance) 3 mg PO DAILY [powerseat lift chair As directed] ramelteon 8 mg PO DAILY [shower head As directed] silver sulfadiazine 1% (Silvadene) 1 appl topical DAILY sodium,potassium,mag sulfates 17.5-3.13-1.6 gram (Suprep Bowel Prep Kit) 480 mL orally; tacrolimus 0.1% topical [toilet seat elevator As directed] tramadol 50 mg PO BID PRN triamcinolone acetonide 0.025% appl topical underpads (Bed Underpads) Use 1 to 3 once a day prn white petrolatum 41% (Aquaphor Healing) 1 appl topical DAILY PRN 2 weeks [wipes As directed] Tobacco use date assessed: 10/07/23 Fall risk assessment: No Falls in past year Last assessed Fall Risk: 12/25/23 Dental Screening Dental Screen Date: 12/25/23 Did you have a dental visit in the last 12 months?: No Did you have a dental problem in the last 6 months where you did not have access to dental care?: No Was dental information given to patient?: Patient has dentist HPI HPI Comments History of Present Illness Details This is a 68-year-old female with diabetes mellitus type 2, hypertension, 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 She is accompanied by EXECUTIVE VICE PRESIDENT BUSINESS DEVELOPMENT. Had an x-ray in October and another x-ray this month with same results and no foreign body. I will give her diclofenac cream to try it out. A1c within goal. Blood pressure borderline normal to elevated. Thyroid cancer follow by Endocrinology. Constipation stable with Linzess. GERD stable with famotidine. Depression well control with escitalopram and this is follow by Psychiatry. [facility] Medical History (Updated 12/25/23 @ 10:52 by Yael Talbot MD) Diabetes mellitus Pain of left thumb Right upper quadrant pain AC (acromioclavicular) arthritis Hypertension Elevated LFTs Osteoarthritis (arthritis due to wear and tear of joints) Physical exam Colon cancer screening Allergic reaction DM2 (diabetes mellitus, type 2) Back pain Right arm pain Vulvar irritation Encounter for annual routine gynecological examination Impacted cerumen of left ear Rash Lower back pain Abnormal laboratory test result Back pain Mild recurrent major depression Thyroid cancer Depression Anxiety Sacroiliac joint disease Lumbar spondylosis GERD without esophagitis Acquired hypothyroidism Benign essential hypertension Constipation Obesity (BMI 30-39.9) Dyslipidemia supervisor intermediates (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 Mother Diabetes Sister Lung cancer Brother H/O heart surgery Diabetes Son Epilepsy Social History Household Members: Significant Other Housing: Apartment Unable to assess alcohol history related to: Unknown Alcohol intake: never Patient Tobacco Use Status: Never used Tobacco e-Cigarette/Vaping Use: Never Used Second Hand Smoke Exposure: No service: No Current occupational status: disabled Gender identity: Female Cognitive needs: Yes Hearing needs: No Vision needs: No Female Reproductive History Menstrual Age of Menarche: 13 Questionnaire Thrive Questionnaire Date Thrive assessed: 10/07/23 DENIS-7 AMB Questionnaire DENIS-7 Date DENIS - 7 assessed: 10/07/23 Source: Developed by Drs. Leland Gregorio, Elda Quinteros, Lamin Pierre and colleagues, with an educational edilberto from [employer]. Review of Systems Const All systems reviewed & are unremarkable except as noted in HPI and below Eyes Reports no additional complaints, Denies change in vision and Denies other visual disturbances Card Denies chest pain at rest, Denies chest pain with activity, Denies edema, Denies irregular heart rhythm, Denies claudication, Denies dyspnea, Denies dyspnea on exertion, Denies orthopnea, Denies paroxysmal nocturnal dyspnea and Denies slow heart rate Resp Denies cough, Denies dyspnea and Denies dyspnea on exertion Physical exam (Primary Care) Vital Signs: Last Vital Signs BP 138/80 12/25/23 09:46 BMI result Body Mass Index 38.3 BMI Assessment/Plan discussion: High BMI High, discussed plan: lifestyle, weight reduction, dietary and physical activity Tobacco/Smoking Status: Tobacco use Status Tobacco use date assessed 10/07/23 12/25/23 09:29 Patient Tobacco Use Status Never used Tobacco 12/25/23 09:29 e-Cigarette/Vaping Use Never Used 12/25/23 09:29 Thrive Assessment: Date of Thrive Assessment Date Thrive assessed 10/07/23 12/25/23 09:29 Const Limitations: ambulation with cane Resp Effort & Inspection: normal respiratory effort Auscultation: clear to auscultation bilaterally Cardio Jugular venous distension: no JVD Rate: regular rate Rhythm: regular rhythm Heart sounds: S1 normal heart sound present and S2 normal heart sound present Extrem General: Yes full ROM Results AMB Hemoglobin A1c AMB Hemoglobin A1c 6.6 % Last Edit by DOM Duvall on 12/25/23 09:5 0 Results Reviewed Results Reviewed: Laboratory Last Values Hgb A1c (Clinic) 6.6 % (4.0-6.0) H 12/25/23 09:24 Assessment and Plan Assessment & Plan (1) Diabetes mellitus: Code(s): E11.9 - Type 2 diabetes mellitus without complications Qualifiers: Diabetes mellitus type: type 2 Diabetes mellitus long term care pharmacist insulin use: with long term care pharmacist use Diabetes mellitus complication status: without complication Qualified Code(s): E11.9 - Type 2 diabetes mellitus without complications; Z79.4 - detention (current) use of insulin Plan: Continue metformin, Trulicity and insulin. A1c goal is equal or less than 7%. (2) Thyroid cancer: Comment: w/thyroidectomy Code(s): C73 - Malignant neoplasm of thyroid gland Plan: Continue levothyroxine. Monitor TSH. Follow-up with endocrinology. (3) Mild recurrent major depression: Code(s): F33.0 - Major depressive disorder, recurrent, mild Plan: Continue escitalopram. Follow-up with psychiatry. (4) Essential hypertension: Code(s): I10 - Essential (primary) hypertension Plan: Continue hydrochlorothiazide and losartan. Blood pressure goal is equal or less than 130/80. (5) GERD (gastroesophageal reflux disease): Code(s): K21.9 - Gastro-esophageal reflux disease without esophagitis Qualifiers: Esophagitis presence: esophagitis presence not specified Qualified Code(s): K21.9 - Gastro-esophageal reflux disease without esophagitis Plan: Continue famotidine. (6) Chronic idiopathic constipation: Code(s): K59.04 - Chronic idiopathic constipation Plan: Continue Linzess. Orders: Orders AMB Hemoglobin A1c Today E11.9 - Type 2 diabetes mellitus without complications, Z79.4 - supervisor intermediates (current) use of insulin Medications: New meloxicam 15 mg PO DAILY 90 tabs 0RF 90 days carbamide peroxide 6.5% (Debrox) 5 drps otic (ears) DAILY 15 mL 0RF 4 days montelukast 10 mg PO DAILY 30 tabs 0RF 30 days Refilled diclofenac sodium 1% apply to single elbow, wrist or hand; for hand includes palm/fingers/back of hand 2 grams topical QID 100 grams 4RF 1 month M19.90 - Unspecified osteoarthritis, unspecified site Coding Level of Care Code Est Pt Level 4 (48986) Complex EM visit Add On G2211 Diagnoses Type 2 diabetes mellitus without complication, with long-term current use of in sulin E11.9; Z79.4 Diabetes mellitus type: type 2 Diabetes mellitus snf insulin use: with long term care pharmacist use Diabetes mellitus complication status: without complication Thyroid cancer C73 Mild recurrent major depression F33.0 Essential hypertension I10 Gastroesophageal reflux disease, unspecified whether esophagitis present K21.9 Esophagitis presence: esophagitis presence not specified Chronic idiopathic constipation K59.04 Time Spent (min) 24
[2023-12-25 09:28] VITALS: BP 142/76; BMI 38.3
[2023-12-25 09:46] VITALS: BP 138/80
== END 2023-12-25 09:59 | disposition home or self-care (01) ==
PROVIDERS: PCP Internal Medicine; Visit Provider Internal Medicine
DX: E11.9 Type 2 diabetes mellitus without complications (principal); Z79.4 Long term (current) use of insulin; C73 Malignant neoplasm of thyroid gland; F33.0 Major depressive disorder, recurrent, mild; I10 Essential (primary) hypertension; K21.9 Gastro-esophageal reflux disease without esophagitis; K59.04 Chronic idiopathic constipation
CPT/HCPCS: 83036; 99214; G2211

== ENCOUNTER 2024-01-15 09:17 | Outpatient (REF) | payer OTHER, SELFPAY ==
[2024-01-15 10:30] LABS: Alanine Aminotransferase 26 U/L (0-31); Albumin Level 3.8 g/dL (3.5-5.0); Alkaline Phosphatase 87 U/L (39-117); Anion Gap 13 (12-20); Aspartate Amino Transferase 33 U/L (5-31); Bilirubin Total 0.5 mg/dL (0.0-1.0); Blood Urea Nitrogen 15 mg/dL (9-16); Calcium 9.4 mg/dL (8.4-10.2); Carbon Dioxide 30 mmol/L (22-29); Chloride 105 mmol/L (96-108); Cholesterol 153 mg/dL (<200); Estimated Glomerular Filt Rate > 60; Glucose Fasting 101 mg/dL (60-99); HDL Cholesterol 42 mg/dL (>40); LDL Cholesterol Calculated 97 mg/dL (<100); Potassium 3.5 mmol/L (3.3-5.1); Sodium 144 mmol/L (135-145); Total Protein 7.4 g/dL (6.5-8.0); Triglycerides 74 mg/dL (<150)
[2024-01-15 10:47] LABS: Thyroid Stimulating Hormone 0.21 uIU/mL (0.32-4.0); Vitamin D 25-OH Total 36.2 ng/mL (>30)
[2024-01-15 11:38] LABS: Creatinine Urine 221.08 mg/dL; Microalbum/Creatinine Ratio Ur 6.7 ug/mg cr (<30)
== END 2024-01-15 09:18 | disposition home or self-care (01) ==
LOC: HO.LAB 09:17
PROVIDERS: PCP Internal Medicine; Visit Provider Internal Medicine
DX: E78.5 Hyperlipidemia, unspecified (principal); E11.65 Type 2 diabetes mellitus with hyperglycemia; E55.9 Vitamin D deficiency, unspecified; C73 Malignant neoplasm of thyroid gland; E11.9 Type 2 diabetes mellitus without complications
CPT/HCPCS: 36415; 80053; 80061; 82043; 82306; 82570; 84443

== ENCOUNTER 2024-02-02 12:06 | Outpatient (AMB) | payer OTHER, SELFPAY ==
--- NOTE | 2024-02-02 12:46 | A.OFFVIS_ITS ---
Vital Signs 02/02/24 12:50 Height 5 ft 4 in Weight 233 lb 11.04 oz BMI 40.1 BP 130/76 Blood Pressure Location Rt brachial Position Sitting Pulse 85 Pulse Source Pulse Oximeter Intake Visit Reasons: [id number] full Intake Note: Patient present today to follow up on Type 2 Diabetes Mellitus. Last seen by Dr. Aranda on 09/25/2023. Patient receives DME supplies through: Pharmacy Last Diabetic Eye exam: Due Last Podiatry Visit: Due, next appt Feb Random Glucose: 183mg/dl HgA1C: 6.6% 12/25/2023 Annealing Torch Operator Required: Yes Accompanied by: Self / Same As Patient Allergies enalapril [ENALAPRIL] Allergy (Intermediate, Verified 02/02/24 12:51) Cough cephalexin [From KEFLEX] Allergy (Mild, Verified 02/02/24 12:51) rash ciprofloxacin [CIPROFLOXACIN] Allergy (Mild, Verified 02/02/24 12:51) HIVES,RASH levothyroxine sodium [LEVOTHYROXINE SODIUM] Allergy (Mild, Verified 02/02/24 12:51) RASH WITH GENERIC MED nitrofurantoin [NITROFURANTOIN] Allergy (Mild, Verified 02/02/24 12:51) RASH Penicillins [PENICILLINS] Allergy (Mild, Verified 02/02/24 12:51) RASH sulfamethoxazole [From BACTRIM] Allergy (Mild, Verified 02/02/24 12:51) rash trimethoprim [From BACTRIM] Allergy (Mild, Verified 02/02/24 12:51) rash dulaglutide [From Trulicity] Adverse Reaction (Unknown, Verified 02/02/24 12:51) Rash ALL GENERIC MEDS Allergy (Mild, Uncoded 02/02/24 12:51) Rash SHRIMP Allergy (Unknown, Uncoded 02/02/24 12:51) Unknown Medication List - Last Reconciled 02/02/24 by Radha Chavira PA-C acetaminophen (Tylenol Extra Strength) 500 mg PO Q6H PRN 30 days [adult diapers As directed] [air conditioner As directed] atorvastatin 40 mg PO BEDTIME 90 days azelastine 1 spray intranasal BID betamethasone valerate 0.1% 1 appl topical BID bisacodyl (Dulcolax (bisacodyl)) Take 2 tabs twie a day 2 days before procedure and 2 tabs am of procedure orally bedtime; 2 days blood sugar diagnostic (FreeStyle Lite Strips) 1 strip miscellaneous TID 90 days blood sugar diagnostic (FreeStyle Lite Strips) As directed tests 4X/day blood-glucose meter (FreeStyle Lite Meter kit) As directed cane As directed carbamide peroxide 6.5% (Debrox) 5 drps otic (ears) DAILY 4 days clobetasol 0.05% 1 appl topical DAILY cyclobenzaprine 5 mg PO TID PRN diclofenac sodium 1% 2 grams topical QID 1 month dicyclomine 20 mg PO TID 30 days diphenhydramine HCl (Banophen) 25 mg PO BEDTIME PRN 30 days disposable gloves (Biobrane Gloves Large) As directed docusate sodium 100 mg PO DAILY dulaglutide (Trulicity) 0.75 mg (0.5 mL) subcut QWEEK escitalopram oxalate 10 mg PO DAILY famotidine 20 mg PO DAILY 90 days flash glucose scanning reader ([employer] Carley 2 [place]) As directed flash glucose sensor (FreeStyle Carley 2 Sensor kit) As directed change every 14 days humidifiers As directed hydrochlorothiazide 25 mg PO DAILY 90 days NS hydrocortisone 1% (Anti-Itch (hydrocortisone)) 1 appl topical BID PRN 14 days insulin glargine (Lantus Solostar U-100 Insulin) 16 units (0.16 mL) subcut DAILY 30 days ketotifen fumarate 0.025%(0.035%) 0 drps ophthalmic (eye) lancets (FreeStyle Lancets) 3 times aday lidocaine 5% (Lidoderm) 1 patch topical DAILY PRN MDD remove after 12 hours lidocaine 5% 1 patch topical DAILY losartan 50 mg PO DAILY 90 days meloxicam 15 mg PO DAILY 90 days metformin 1,000 mg (2 x 500 mg) PO BID mirabegron ER (Myrbetriq) 50 mg PO DAILY montelukast 10 mg PO DAILY 30 days naproxen 500 mg PO BID PRN 10 days pen needle, diabetic (BD Ultra-Fine Aarti Pen Needle) 1 ea subcut DAILY plecanatide (Trulance) 3 mg PO DAILY [powerseat lift chair As directed] ramelteon 8 mg PO DAILY [shower head As directed] silver sulfadiazine 1% (Silvadene) 1 appl topical DAILY sodium,potassium,mag sulfates 17.5-3.13-1.6 gram (Suprep Bowel Prep Kit) 480 mL orally; Synthroid (levothyroxine) 150 mcg PO DAILY 90 days NS tacrolimus 0.1% topical [toilet seat elevator As directed] tramadol 50 mg PO BID PRN triamcinolone acetonide 0.025% appl topical underpads (Bed Underpads) Use 1 to 3 once a day prn white petrolatum 41% (Aquaphor Healing) 1 appl topical DAILY PRN 2 weeks [wipes As directed] HPI HPI [id number] full: Details: Patient is 68-year-old female who presents today for a follow-up regarding her diabetes. She has a significant past medical history of hypertension, hyperlipidemia, GERD, depression, anxiety, polyarthralgia , acquired hypothyroidism s/p papillary thyroid carcinoma and obesity. Phone train electronic technician used today. She was diagnosed with type 2 diabetes in 2012. Her last A1c was 6.6. She is currently on Lantus 14 units metformin 2 pills of 500 mg twice a day, Trulicity 0.75mg/week. She denies any hyper or hypoglycemic events. States that this regimen works very well for her. She Intolerant of Jardiance due to uncontrollable urination and diarrhea. Adamantly refuses a CGM. She states that she has very sensitive skin and would be worried about allergic reaction. She does not want strep seems that she is happy to check her blood sugars a few times a day. She did not bring in her glucometer. States that she has not needed to correct any hypoglycemic events. States that if she would she would use candy She has an upcoming appointment with her gardening instructor in March. She was seen Podiatry in February. [facility] Medical History Diabetes mellitus Pain of left thumb Right upper quadrant pain AC (acromioclavicular) arthritis Hypertension Elevated LFTs Osteoarthritis (arthritis due to wear and tear of joints) Physical exam Colon cancer screening Allergic reaction DM2 (diabetes mellitus, type 2) Back pain Right arm pain Vulvar irritation Encounter for annual routine gynecological examination Impacted cerumen of left ear Rash Lower back pain Abnormal laboratory test result Back pain Mild recurrent major depression Thyroid cancer Depression Anxiety Sacroiliac joint disease Lumbar spondylosis GERD without esophagitis Acquired hypothyroidism Benign essential hypertension Constipation Obesity (BMI 30-39.9) Dyslipidemia long-term (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 Mother Diabetes Sister Lung cancer Brother H/O heart surgery Diabetes Son Epilepsy Social History Household Members: Significant Other Housing: Apartment Unable to assess alcohol history related to: Unknown Alcohol intake: never Patient Tobacco Use Status: Never used Tobacco e-Cigarette/Vaping Use: Never Used Second Hand Smoke Exposure: No service: No Current occupational status: disabled Gender identity: Female Cognitive needs: Yes Hearing needs: No Vision needs: No Female Reproductive History Menstrual Age of Menarche: 13 Physical Exam Vital Signs: Last Vital Signs Pulse 85 02/02/24 12:50 BP 130/76 02/02/24 12:50 BMI result Body Mass Index 40.1 Const Orientation/consciousness: patient oriented x3 Neck Neck: Yes no lymphadenopathy Thyroid: Thyroid normal Carotids: no bruits Resp Auscultation: clear to auscultation bilaterally Cardio Rate: regular rate Rhythm: regular rhythm Heart sounds: S1 normal heart sound present and S2 normal heart sound present Peripheral pulses: dorsalis pedis present Neuro General: patient oriented x3, gait normal and no focal motor deficits Extrem Other: Monofilament sensation intact bilaterally. Vibratory sensation intact bilaterally. Skin intact. General: Yes normal to inspection Results Reviewed Results Reviewed: Laboratory Last Values Glucose (Clinic) 183 mg/dL (60-115) H 02/02/24 12:57 A1c 6.6 Assessment & Plan Assessment & Plan (1) termite control servicer (current) use of insulin: Code(s): Z79.4 - termite control servicer (current) use of insulin Category: Medical Plan: Recommended freestyle Carley however she refuses. We spent extensive time di scussing pros and cons. She will let me know if she changes her mind. Signs and symptoms of hyper and hypoglycemia that required medical treatment were discussed. Offered glucose tabs but declines. (2) DM2 (diabetes mellitus, type 2): Code(s): E11.9 - Type 2 diabetes mellitus without complications Category: Medical Qualifiers: Diabetes mellitus intermediate card tender insulin use: with skilled nursing use Diabetes m ellitus complication status: without complication Qualified Code(s): E11.9 - Type 2 diabetes mellitus without complications; Z79.4 - long-term (current) use of insulin Plan: as above. well controlled. will monitor. labs ordered. f/u 3 months or sooner prn. Orders: Orders Hemoglobin A1c Today E11.9 - Type 2 diabetes mellitus without complications, Z79.4 - long-term (current) use of insulin Lipid Panel Today E11.9 - Type 2 diabetes mellitus without complications, Z79.4 - long-term (current) use of insulin Microalbumin, Random (w Creat) Today E11.9 - Type 2 diabetes mellitus without complications, Z79.4 - termite control servicer (current) use of insulin Medications: Refilled dulaglutide (Trulicity) 0.75 mg (0.5 mL) subcut QWEEK 6 mL 4RF blood sugar diagnostic (FreeStyle Lite Strips) As directed tests 4X/day 100 ea 6RF metformin 1,000 mg (2 x 500 mg) PO BID 360 tabs 3RF E11.65 - Type 2 diabetes mellitus with hyperglycemia insulin glargine (Lantus Solostar U-100 Insulin) 16 units (0.16 mL) subcut DAILY 30 days 4.8 mL 4RF E11.9 - Type 2 diabetes mellitus without complications, Z79.4 - termite control servicer (current) use of insulin Coding Level of Care Code Est Pt Level 4 (12751) Diagnoses long-term (current) use of insulin Z79.4 Type 2 diabetes mellitus without complication, with long-term current use of insulin E11.9; Z79.4 Diabetes mellitus skilled nursing insulin use: with intermediate card tender use Diabetes mellitus complication status: without complication
[2024-02-02 12:50] VITALS: BP 130/76; PULSE 85; BMI 40.1
[2024-02-02 13:01] LABS: Glucose, Whole Blood 183 mg/dL (60-115)
== END 2024-02-02 13:36 | disposition home or self-care (01) ==
PROVIDERS: PCP Internal Medicine; Visit Provider Physician Assistant
DX: Z79.4 Long term (current) use of insulin (principal); E11.9 Type 2 diabetes mellitus without complications
CPT/HCPCS: 99214

== ENCOUNTER → 2024-02-02 12:06 | Outpatient (BNVA) | payer OTHER, SELFPAY | PROVIDERS: PCP Internal Medicine; Visit Provider Physician Assistant | DX: E11.9 Type 2 diabetes mellitus without complications (principal); Z79.4 Long term (current) use of insulin | CPT/HCPCS: 82947; 99212 ==

== ENCOUNTER 2024-02-10 09:32 | Outpatient (AMB) | payer OTHER, SELFPAY ==
--- NOTE | 2024-02-10 09:33 | A.OFFPC_ITS ---
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 Required: No Accompanied by: LICENSING SERVICES CLERK Allergies enalapril [ENALAPRIL] Allergy (Intermediate, Verified 02/10/24 09:54) Cough cephalexin [From KEFLEX] Allergy (Mild, Verified 02/10/24 09:54) rash ciprofloxacin [CIPROFLOXACIN] Allergy (Mild, Verified 02/10/24 09:54) HIVES,RASH levothyroxine sodium [LEVOTHYROXINE SODIUM] Allergy (Mild, Verified 02/10/24 09:54) RASH WITH GENERIC MED nitrofurantoin [NITROFURANTOIN] Allergy (Mild, Verified 02/10/24 09:54) RASH Penicillins [PENICILLINS] Allergy (Mild, Verified 02/10/24 09:54) RASH sulfamethoxazole [From BACTRIM] Allergy (Mild, Verified 02/10/24 09:54) rash trimethoprim [From BACTRIM] Allergy (Mild, Verified 02/10/24 09:54) rash dulaglutide [From Trulicity] Adverse Reaction (Unknown, Verified 02/10/24 09:54) Rash ALL GENERIC MEDS Allergy (Mild, Uncoded 02/10/24 09:54) Rash SHRIMP Allergy (Unknown, Uncoded 02/10/24 09:54) Unknown Medication List - Last Reconciled 02/10/24 by Yael Talbot MD acetaminophen (Tylenol Extra Strength) 500 mg PO Q6H PRN 30 days [adult diapers As directed] [air conditioner As directed] atorvastatin 40 mg PO BEDTIME 90 days azelastine 1 spray intranasal BID betamethasone valerate 0.1% 1 appl topical BID bisacodyl (Dulcolax (bisacodyl)) Take 2 tabs twie a day 2 days before procedure and 2 tabs am of procedure orally bedtime; 2 days blood sugar diagnostic (FreeStyle Lite Strips) 1 strip miscellaneous TID 90 days blood sugar diagnostic (FreeStyle Lite Strips) As directed tests 4X/day blood-glucose meter (FreeStyle Lite Meter kit) As directed cane As directed carbamide peroxide 6.5% (Debrox) 5 ps otic (ears) DAILY 4 days clobetasol 0.05% 1 appl topical DAILY cyclobenzaprine 5 mg PO TID PRN diclofenac sodium 1% 2 grams topical QID 1 month dicyclomine 20 mg PO TID 30 days diphenhydramine HCl (Banophen) 25 mg PO BEDTIME PRN 30 days disposable gloves (Biobrane Gloves Large) As directed docusate sodium 100 mg PO DAILY dulaglutide (Trulicity) 0.75 mg (0.5 mL) subcut QWEEK escitalopram oxalate 10 mg PO DAILY famotidine 20 mg PO DAILY 90 days flash glucose scanning reader (Grabbed Carley 2 [place]) As directed flash glucose sensor (Canvasyle Carley 2 Sensor kit) As directed change every 14 days humidifiers As directed hydrochlorothiazide 25 mg PO DAILY 90 days NS hydrocortisone 1% (Anti-Itch (hydrocortisone)) 1 appl topical BID PRN 14 days insulin glargine (Lantus Solostar U-100 Insulin) 16 units (0.16 mL) subcut DAILY 30 days ketotifen fumarate 0.025%(0.035%) 0 drps ophthalmic (eye) lancets (ServerPilotStyle Lancets) 3 times aday lidocaine 5% (Lidoderm) 1 patch topical DAILY PRN MDD remove after 12 hours lidocaine 5% 1 patch topical DAILY losartan 50 mg PO DAILY 90 days meloxicam 15 mg PO DAILY 90 days metformin 1,000 mg (2 x 500 mg) PO BID mirabegron ER (Myrbetriq) 50 mg PO DAILY montelukast 10 mg PO DAILY 30 days naproxen 500 mg PO BID PRN 10 days pen needle, diabetic (BD Ultra-Fine Aarti Pen Needle) 1 ea subcut DAILY plecanatide (Trulance) 3 mg PO DAILY [powerseat lift chair As directed] ramelteon 8 mg PO DAILY [shower head As directed] silver sulfadiazine 1% (Silvadene) 1 appl topical DAILY sodium,potassium,mag sulfates 17.5-3.13-1.6 gram (Suprep Bowel Prep Kit) 480 mL orally; Synthroid (levothyroxine) 150 mcg PO DAILY 90 days NS tacrolimus 0.1% topical [toilet seat elevator As directed] tramadol 50 mg PO BID PRN triamcinolone acetonide 0.025% appl topical underpads (Bed Underpads) Use 1 to 3 once a day prn white petrolatum 41% (Aquaphor Healing) 1 appl topical DAILY PRN 2 weeks [wipes As directed] Tobacco use date assessed: 10/07/23 Dental Screening Dental Screen Date: 12/25/23 HPI HPI Comments History of Present Illness Details This is a 68-year-old female with diabetes mellitus type 2 on long-term current use of insulin, hypertension, dyslipidemia, 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 A1c within goal. Blood pressure stable. LDL close to goal. TSH low and I did decrease levothyroxine. She said she follows at [facility] endocrinology for her thyroid. TSH will be repeated in 6 weeks. Mild major depression stable with escitalopram and this is follow by Psychiatry. Constipation well controlled with Trulance and is follow by Gastroenterology. Walks with a cane for gait stability. Denies any chest pain or shortness on breath. [facility] Medical History DM2 (diabetes mellitus, type 2) Diabetes mellitus Pain of left thumb Right upper quadrant pain AC (acromioclavicular) arthritis Hypertension Elevated LFTs Osteoarthritis (arthritis due to wear and tear of joints) Physical exam Colon cancer screening Allergic reaction Back pain Right arm pain Vulvar irritation Encounter for annual routine gynecological examination Impacted cerumen of left ear Rash Lower back pain Abnormal laboratory test result Back pain Mild recurrent major depression Thyroid cancer Depression Anxiety Sacroiliac joint disease Lumbar spondylosis GERD without esophagitis Acquired hypothyroidism Benign essential hypertension Constipation Obesity (BMI 30-39.9) Dyslipidemia 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 Mother Diabetes Sister Lung cancer Brother H/O heart surgery Diabetes Son Epilepsy Social History Household Members: Significant Other Housing: Apartment Unable to assess alcohol history related to: Unknown Alcohol intake: never Patient Tobacco Use Status: Never used Tobacco e-Cigarette/Vaping Use: Never Used Second Hand Smoke Exposure: No service: No Current occupational status: disabled Gender identity: Female Cognitive needs: Yes Hearing needs: No Vision needs: No Female Reproductive History Menstrual Age of Menarche: 13 Questionnaire Thrive Questionnaire Date Thrive assessed: 10/07/23 DENIS-7 AMB Questionnaire DENIS-7 Date DENIS - 7 assessed: 10/07/23 Source: Developed by Drs. Leland Gregorio, Elda Quinteros, Lamin beard nd colleagues, with an educational edilberto from [employer]. Review of Systems Const All systems reviewed & are unremarkable except as noted in HPI and below Card Denies chest pain at rest, Denies chest pain with activity, Denies edema, Denies irregular heart rhythm, Denies claudication, Denies dyspnea, Denies dyspnea on exertion, Denies orthopnea, Denies paroxysmal nocturnal dyspnea and Denies slow heart rate Resp Denies cough, Denies dyspnea and Denies dyspnea on exertion GI Denies abdominal pain, Denies change in bowel habits, Denies excessive flatus, Denies nausea and Denies vomiting Physical exam (Primary Care) Vital Signs: Last Vital Signs BP 132/80 02/10/24 09:34 BMI result Body Mass Index 39.3 BMI Assessment/Plan discussion: High BMI High, discussed plan: lifestyle, weight reduction, dietary and physical activity Tobacco/Smoking Status: Tobacco use Status Tobacco use date assessed 10/07/23 02/10/24 09:39 Patient Tobacco Use Status Never used Tobacco 02/10/24 09:39 e-Cigarette/Vaping Use Never Used 02/10/24 09:39 Thrive Assessment: Date of Thrive Assessment Date Thrive assessed 10/07/23 02/10/24 09:39 Const General: cooperative Limitations: ambulation with cane Resp Effort & Inspection: normal respiratory effort Auscultation: clear to auscultation bilaterally Cardio Jugular venous distension: no JVD Rate: regular rate Rhythm: regular rhythm Heart sounds: S1 normal heart sound present and S2 normal heart sound present Extrem General: Yes full ROM Assessment and Plan Assessment & Plan (1) DM2 (diabetes mellitus, type 2): Code(s): E11.9 - Type 2 diabetes mellitus without complications Qualifiers: Diabetes mellitus senior living insulin use: with intermediate card tender use Diabetes mellitus complication status: without complication Qualified Code(s): E11.9 - Type 2 diabetes mellitus without complications; Z79.4 - residential (current) use of insulin Plan: Continue metformin, Trulicity and insulin. A1c goal is equal or less than 7%. (2) Thyroid cancer: Comment: w/thyroidectomy Code(s): C73 - Malignant neoplasm of thyroid gland Plan: Increase Synthroid. Follow with [facility] endocrinology. Repeat TSH in 6 weeks. (3) Mild recurrent major depression: Code(s): F33.0 - Major depressive disorder, recurrent, mild Plan: Continue escitalopram. Follow-up with psychiatry. (4) Essential hypertension: Code(s): I10 - Essential (primary) hypertension Plan: Continue losartan and hydrochlorothiazide. Blood pressure goal is equal or less than 130/80. (5) Dyslipidemia: Code(s): E78.5 - Hyperlipidemia, unspecified Plan: Continue statins. Advise low-cholesterol diet. LDL goal is less than 70. (6) Chronic idiopathic constipation: Code(s): K59.04 - Chronic idiopathic constipation Plan: Continue Trulance. Medications: New atorvastatin 80 mg PO BEDTIME 90 days 90 tabs 1RF Discontinued atorvastatin Discontinued Reason: Patient Completed Course 40 mg PO BEDTIME 90 days 90 tabs 1RF Coding Level of Care Code Est Pt Level 4 (18565) Complex EM visit Add On G2211 Diagnoses Type 2 diabetes mellitus without complication, with long-term current use of insulin E11.9; Z79.4 Diabetes mellitus intermediate card tender insulin use: with senior living use Diabetes mellitus complication status: without complication Thyroid cancer C73 Mild recurrent major depression F33.0 Essential hypertension I10 Dyslipidemia E78.5 Chronic idiopathic constipation K59.04 Time Spent (min) 24
[2024-02-10 09:34] VITALS: BP 132/80; BMI 39.3
== END 2024-02-10 10:04 | disposition home or self-care (01) ==
PROVIDERS: PCP Internal Medicine; Visit Provider Internal Medicine
DX: E11.9 Type 2 diabetes mellitus without complications (principal); Z79.4 Long term (current) use of insulin; C73 Malignant neoplasm of thyroid gland; F33.0 Major depressive disorder, recurrent, mild; I10 Essential (primary) hypertension; E78.5 Hyperlipidemia, unspecified; K59.04 Chronic idiopathic constipation
CPT/HCPCS: 99214; G2211

== ENCOUNTER 2024-03-24 16:01 | Outpatient (AMB) | payer OTHER, SELFPAY ==
[2024-03-24 16:33] VITALS: BP 118/70; BMI 39.5
--- NOTE | 2024-03-24 16:33 | A.OFFPC_ITS ---
Vital Signs 03/24/24 16:33 Height 5 ft 4 in Weight 230 lb BMI 39.5 BP 118/70 Blood Pressure Location Lt brachial Position Sitting Intake Visit Reasons: sore throat Intake Note: Patient here c/o upper abdominal pain radiating up throat with pain and burning sensation Incident Response Specialist Required: No Accompanied by: Self / Same As Patient Allergies enalapril [ENALAPRIL] Allergy (Intermediate, Verified 03/24/24 16:46) Cough cephalexin [From KEFLEX] Allergy (Mild, Verified 03/24/24 16:46) rash ciprofloxacin [CIPROFLOXACIN] Allergy (Mild, Verified 03/24/24 16:46) HIVES,RASH levothyroxine sodium [LEVOTHYROXINE SODIUM] Allergy (Mild, Verified 03/24/24 16:46) RASH WITH GENERIC MED nitrofurantoin [NITROFURANTOIN] Allergy (Mild, Verified 03/24/24 16:46) RASH Penicillins [PENICILLINS] Allergy (Mild, Verified 03/24/24 16:46) RASH sulfamethoxazole [From BACTRIM] Allergy (Mild, Verified 03/24/24 16:46) rash trimethoprim [From BACTRIM] Allergy (Mild, Verified 03/24/24 16:46) rash dulaglutide [From Trulicity] Adverse Reaction (Unknown, Verified 03/24/24 16:46) Rash ALL GENERIC MEDS Allergy (Mild, Uncoded 03/24/24 16:46) Rash SHRIMP Allergy (Unknown, Uncoded 03/24/24 16:46) Unknown Medication List - Last Reconciled 03/24/24 by Yael Talbot MD acetaminophen (Tylenol Extra Strength) 500 mg PO Q6H PRN 30 days [adult diapers As directed] [air conditioner As directed] atorvastatin 80 mg PO BEDTIME 90 days azelastine 1 spray intranasal BID betamethasone valerate 0.1% 1 appl topical BID bisacodyl (Dulcolax (bisacodyl)) Take 2 tabs twie a day 2 days before procedure and 2 tabs am of procedure orally bedtime; 2 days blood sugar diagnostic (FreeStyle Lite Strips) 1 strip miscellaneous TID 90 days blood sugar diagnostic (FreeStyle Lite Strips) As directed tests 4X/day blood-glucose meter (FreeStyle Lite Meter kit) As directed cane As directed carbamide peroxide 6.5% (Debrox) 5 drps otic (ears) DAILY 4 days clobetasol 0.05% 1 appl topical DAILY cyclobenzaprine 5 mg PO TID PRN diclofenac sodium 1% 2 grams topical QID 1 month dicyclomine 20 mg PO TID 30 days diphenhydramine HCl (Banophen) 25 mg PO BEDTIME PRN 30 days disposable gloves (Biobrane Gloves Large) As directed docusate sodium 100 mg PO DAILY dulaglutide (Trulicity) 0.75 mg (0.5 mL) subcut QWEEK escitalopram oxalate 10 mg PO DAILY famotidine 20 mg PO DAILY 90 days flash glucose scanning reader (Go[employer]bert Carley 2 [place]) As directed flash glucose sensor (The Bauhubyle Carley 2 Sensor kit) As directed change every 14 days humidifiers As directed hydrochlorothiazide 25 mg PO DAILY 90 days NS hydrocortisone 1% (Anti-Itch (hydrocortisone)) 1 appl topical BID PRN 14 days insulin glargine (Lantus Solostar U-100 Insulin) 16 units (0.16 mL) subcut DAILY 30 days ketotifen fumarate 0.025%(0.035%) 0 drps ophthalmic (eye) lancets (VibeaseStyle Lancets) 3 times aday lidocaine 5% (Lidoderm) 1 patch topical DAILY PRN MDD remove after 12 hours lidocaine 5% 1 patch topical DAILY losartan 50 mg PO DAILY 90 days meloxicam 15 mg PO DAILY 90 days metformin 1,000 mg (2 x 500 mg) PO BID mirabegron ER (Myrbetriq) 50 mg PO DAILY montelukast 10 mg PO DAILY 30 days naproxen 500 mg PO BID PRN 10 days pen needle, diabetic (BD Ultra-Fine Aarti Pen Needle) 1 ea subcut DAILY plecanatide (Trulance) 3 mg PO DAILY [powerseat lift chair As directed] ramelteon 8 mg PO DAILY [shower head As directed] silver sulfadiazine 1% (Silvadene) 1 appl topical DAILY sodium,potassium,mag sulfates 17.5-3.13-1.6 gram (Suprep Bowel Prep Kit) 480 mL orally; Synthroid (levothyroxine) 150 mcg PO DAILY 90 days NS tacrolimus 0.1% topical [toilet seat elevator As directed] tramadol 50 mg PO BID PRN triamcinolone acetonide 0.025% appl topical underpads (Bed Underpads) Use 1 to 3 once a day prn white petrolatum 41% (Aquaphor Healing) 1 appl topical DAILY PRN 2 weeks [wipes As directed] Tobacco use date assessed: 10/07/23 Dental Screening Dental Screen Date: 12/25/23 HPI HPI Comments History of Present Illness Details This is a 68-year-old female with diabetes mellitus type 2, hypertension, mild recurrent major depression and history of thyroid cancer treated with thyroidectomy that comes today complaining of heartburn that has been present for few weeks. On famotidine which does not seem to relieved the heartburn. She used to be on omeprazole that worked a lot better. She has been having GERD for years but aggravated this past few weeks. Was advised to do diet. Will have upper GI series and famotidine will be replaced with omeprazole. Last A1c was within goal. Blood pressure stable. Depression well controlled with escitalopram. Last TSH was slightly lower. This will be monitor. [facility] Medical History (Updated 03/24/24 @ 16:54 by Yael Talbot MD) DM2 (diabetes mellitus, type 2) Diabetes mellitus Pain of left thumb Right upper quadrant pain AC (acromioclavicular) arthritis Hypertension Elevated LFTs Osteoarthritis (arthritis due to wear and tear of joints) Physical exam Colon cancer screening Allergic reaction Back pain Right arm pain Vulvar irritation Encounter for annual routine gynecological examination Impacted cerumen of left ear Rash Lower back pain Abnormal laboratory test result Back pain Mild recurrent major depression Thyroid cancer Depression Anxiety Sacroiliac joint disease Lumbar spondylosis GERD without esophagitis Acquired hypothyroidism Benign essential hypertension Constipation Obesity (BMI 30-39.9) Dyslipidemia 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 Mother Diabetes Sister Lung cancer Brother H/O heart surgery Diabetes Son Epilepsy Social History Household Members: Significant Other Housing: Apartment Unable to assess alcohol history related to: Unknown Alcohol intake: never Patient Tobacco Use Status: Never used Tobacco e-Cigarette/Vaping Use: Never Used Second Hand Smoke Exposure: No service: No Current occupational status: disabled Gender identity: Female Cognitive needs: Yes Hearing needs: No Vision needs: No Female Reproductive History Menstrual Age of Menarche: 13 Questionnaire Thrive Questionnaire Date Thrive assessed: 10/07/23 DENIS-7 AMB Questionnaire DENIS-7 Date DENIS - 7 assessed: 10/07/23 Source: Developed by Drs. Leland Gregorio, Elda Quinteros, Lamin Pierre and colleagues, with an educational edilberto from [employer]. Review of Systems Const All systems reviewed & are unremarkable except as noted in HPI and below Card Denies chest pain at rest, Denies chest pain with activity, Denies edema, Denies irregular heart rhythm, Denies claudication, Denies dyspnea, Denies dyspnea on exertion, Denies orthopnea, Denies paroxysmal nocturnal dyspnea and Denies slow heart rate Resp Denies cough, Denies dyspnea and Denies dyspnea on exertion GI Denies abdominal pain, Denies change in bowel habits, Denies excessive flatus, Reports heartburn, Denies nausea and Denies vomiting Denies urinary incontinence, Denies urinary hesitancy and Denies urinary urgency Neuro Denies lack of coordination Physical exam (Primary Care) Vital Signs: Last Vital Signs BP 118/70 03/24/24 16:33 BMI result Body Mass Index 39.5 Tobacco/Smoking Status: Tobacco use Status Tobacco use date assessed 10/07/23 03/24/24 16:37 Patient Tobacco Use Status Never used Tobacco 03/24/24 16:37 e-Cigarette/Vaping Use Never Used 03/24/24 16:37 Thrive Assessment: Date of Thrive Assessment Date Thrive assessed 10/07/23 03/24/24 16:37 Resp Effort & Inspection: normal respiratory effort Auscultation: clear to auscultation bilaterally Cardio Jugular venous distension: no JVD Rate: regular rate Rhythm: regular rhythm Heart sounds: S1 normal heart sound present and S2 normal heart sound present Extrem General: Yes full ROM Assessment and Plan Assessment & Plan (1) Chronic GERD: Code(s): K21.9 - Gastro-esophageal reflux disease without esophagitis Plan: Discontinue famotidine. Restart omeprazole. Upper GI series ordered. (2) DM2 (diabetes mellitus, type 2): Code(s): E11.9 - Type 2 diabetes mellitus without complications Qualifiers: Diabetes mellitus long term acute care registered nurse insulin use: with skilled nursing use Diabetes mellitus complication status: without complication Qualified Code(s): E11.9 - Type 2 diabetes mellitus without complications; Z79.4 - care home (current) use of insulin Plan: Continue insulin, metformin and Trulicity. A1c goal is equal or less than 7%. (3) Mild recurrent major depression: Code(s): F33.0 - Major depressive disorder, recurrent, mild Plan: Continue escitalopram. (4) Essential hypertension: Code(s): I10 - Essential (primary) hypertension Plan: Continue losartan and hydrochlorothiazide. Blood pressure goal is equal or less than 130/80. (5) Thyroid cancer: Comment: w/thyroidectomy Code(s): C73 - Malignant neoplasm of thyroid gland Plan: Continue Synthroid. Monitor TSH. Orders: Orders [place] upper GI series Today K21.9 - Gastro-esophageal reflux disease without esophagitis Comprehensive [place]. 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 Thyroid Stimulating Hormone 4 Months C73 - Malignant neoplasm of thyroid gland Medications: New omeprazole 20 mg PO DAILY 90 days 90 caps 0RF Discontinued famotidine Discontinued Reason: Patient Completed Course 20 mg PO DAILY 90 days 90 tabs 1RF Coding Level of Care Code Est Pt Level 4 (48609) Complex EM visit Add On G2211 Diagnoses Chronic GERD K21.9 Type 2 diabetes mellitus without complication, with long-term current use of insulin E11.9; Z79.4 Diabetes mellitus skilled nursing insulin use: with long term acute care registered nurse use Diabetes mellitus complication status: without complication Mild recurrent major depression F33.0 Essential hypertension I10 Thyroid cancer C73 Time Spent (min) 23
== END 2024-03-24 16:54 | disposition home or self-care (01) ==
PROVIDERS: PCP Internal Medicine; Visit Provider Internal Medicine
DX: K21.9 Gastro-esophageal reflux disease without esophagitis (principal); E11.9 Type 2 diabetes mellitus without complications; Z79.4 Long term (current) use of insulin; F33.0 Major depressive disorder, recurrent, mild; I10 Essential (primary) hypertension; C73 Malignant neoplasm of thyroid gland
CPT/HCPCS: 99214; G2211

== ENCOUNTER 2024-05-03 09:57 | Outpatient (AMB) | payer OTHER, SELFPAY ==
--- NOTE | 2024-05-03 10:01 | A.OFFVIS_ITS ---
Vital Signs 05/03/24 10:48 Height 5 ft 4 in Weight 236 lb 8.896 oz BMI 40.6 BP 138/64 Blood Pressure Location Lt brachial Position Sitting Pulse 78 Pulse Source Pulse Oximeter Intake Visit Reasons: T2DM/LVM Intake Note: Patient presents today for D2MT follow up visit. Last Diabetic Eye exam: 05/2023 Last Podiatry Visit: Doesn't have one Random Glucose: 269 mg/dl HgA1c: 8.1% Manager Case Required: Yes Manager Case Language: Senior Marketing Associate Services: Manager Case Present Information Interpreted: non-clinical & clinical Accompanied by: SANDBLASTING SUPERVISOR Allergies enalapril [ENALAPRIL] Allergy (Intermediate, Verified 05/03/24 10:55) Cough cephalexin [From KEFLEX] Allergy (Mild, Verified 05/03/24 10:55) rash ciprofloxacin [CIPROFLOXACIN] Allergy (Mild, Verified 05/03/24 10:55) HIVES,RASH levothyroxine sodium [LEVOTHYROXINE SODIUM] Allergy (Mild, Verified 05/03/24 10:55) RASH WITH GENERIC MED nitrofurantoin [NITROFURANTOIN] Allergy (Mild, Verified 05/03/24 10:55) RASH Penicillins [PENICILLINS] Allergy (Mild, Verified 05/03/24 10:55) RASH sulfamethoxazole [From BACTRIM] Allergy (Mild, Verified 05/03/24 10:55) rash trimethoprim [From BACTRIM] Allergy (Mild, Verified 05/03/24 10:55) rash dulaglutide [From Trulicity] Adverse Reaction (Unknown, Verified 05/03/24 10:55) Rash ALL GENERIC MEDS Allergy (Mild, Uncoded 05/03/24 10:55) Rash SHRIMP Allergy (Unknown, Uncoded 05/03/24 10:55) Unknown HPI HPI T2DM/LVM: Details: Patient is 68-year-old female who presents today for a follow-up regarding her diabetes. She has a significant past medical history of hypertension, hyperlipidemia, GERD, depression, anxiety, polyarthralgia , acquired hypothyroidism s/p papillary thyroid carcinoma and obesity. 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 Eusebio Scott #[id number] -forgot to get labs done prior to today's appointment. Endo: DM-She was diagnosed with type 2 diabetes in 2012. Her last A1c was 6.6. Today it is 8.1. She is currently on Lantus 14 units metformin 1000 mg twice a day, Trulicity 0.75mg/week. She denies any hyper or hypoglycemic events. States that this regimen works very well for her. -She Intolerant of Jardiance due to uncontrollable urination and diarrhea. Adamantly refuses a CGM. She states that she has very sensitive skin and would be worried about allergic reaction. She does not want strep seems that she is happy to check her blood sugars a few times a day. She did not bring in her glucometer. States that she has not needed to correct any hypoglycemic events. States that if she would she would use candy She has an upcoming appointment with her knife edger in May. She states the virtual assistant for advertisers keeps cancelling but she would like to see someone. She denies any difficulty feeling her feet. States that she does not have pain but her toenails are often thickened especially the right great toenail. CV: Blood pressure today in the office is 138/64 . She is on losartan 50 mg. Cholesterol is controlled with atorvastatin 80 mg. [facility] Medical History (Updated 05/03/24 @ 10:06 by Radha Chavira PA-C) DM2 (diabetes mellitus, type 2) Diabetes mellitus Pain of left thumb Right upper quadrant pain AC (acromioclavicular) arthritis Hypertension Elevated LFTs Osteoarthritis (arthritis due to wear and tear of joints) Physical exam Colon cancer screening Allergic reaction Back pain Right arm pain Vulvar irritation Encounter for annual routine gynecological examination Impacted cerumen of left ear Rash Lower back pain Abnormal laboratory test result Back pain Mild recurrent major depression Thyroid cancer Depression Anxiety Sacroiliac joint disease Lumbar spondylosis GERD without esophagitis Acquired hypothyroidism Benign essential hypertension Constipation Obesity (BMI 30-39.9) 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 Mother Diabetes Sister Lung cancer Brother H/O heart surgery Diabetes Son Epilepsy Social History Household Members: Significant Other Housing: Apartment Unable to assess alcohol history related to: Unknown Alcohol intake: never Patient Tobacco Use Status: Never used Tobacco e-Cigarette/Vaping Use: Never Used Second Hand Smoke Exposure: No service: No Current occupational status: disabled Gender identity: Female Cognitive needs: Yes Hearing needs: No Vision needs: No Female Reproductive History Menstrual Age of Menarche: 13 Physical Exam Vital Signs: Last Vital Signs Pulse 78 05/03/24 10:48 BP 138/64 05/03/24 10:48 BMI result Body Mass Index 40.6 Const Orientation/consciousness: patient oriented x3 Neck Neck: Yes no lymphadenopathy Thyroid: Thyroid normal Carotids: no bruits Resp Auscultation: clear to auscultation bilaterally Cardio Rate: regular rate Rhythm: regular rhythm Heart sounds: S1 normal heart sound present and S2 normal heart sound present Peripheral pulses: dorsalis pedis present Skin Nails: yellow and thickened (Great toenails bilaterally) Neuro General: patient oriented x3, gait normal and no focal motor deficits Extrem Other: Monofilament sensation intact bilaterally. Vibratory sensation intact bilaterally. Skin intact. General: Yes normal to inspection Results AMB Hemoglobin A1c AMB Hemoglobin A1c 8.1 % Last Edit by DOM Leigh on 05/03/24 11:18 Results Reviewed Results Reviewed: Laboratory Last Values Glucose (Clinic) 269 mg/dL (60-115) H 05/03/24 10:58 Laboratory Tests 12/25/23 01/15/24 02/02/24 09:24 09:30 12:57 Sodium 144 Potassium 3.5 Chloride 105 Carbon Dioxide 30 H Anion Gap 13 BUN 15 Creatinine 0.73 Estimated GFR > 60 Glucose (Clinic) 183 H Fasting Glucose 101 H Hgb A1c (Clinic) 6.6 H AST 33 H ALT 26 Cholesterol 153 LDL Cholesterol, Calc 97 HDL Cholesterol 42 Assessment & Plan Assessment & Plan (1) Controlled type 2 diabetes mellitus with insulin therapy: Code(s): E11.9 - Type 2 diabetes mellitus without complications; Z79.4 - [employer] (current) use of insulin Category: Medical Plan: Increase Trulicity to 1.5 mg weekly. Continue regimen otherwise. Follow up in 3 months. Advised to complete labs prior to appointment. We did discuss some dietary changes that she has been eating more candy lately. (2) Essential hypertension: Code(s): I10 - Essential (primary) hypertension Category: Medical Plan: WNL. Continue current regimen. (3) Dyslipidemia: Code(s): E78.5 - Hyperlipidemia, unspecified Category: Medical Plan: Labs ordered. We will monitor. Orders: Referrals Podiatry Referral B35.1 - Tinea unguium, E11.9 - Type 2 diabetes mellitus without complications, Z79.4 - [facility] (current) use of insulin Medications: New dulaglutide (Trulicity) 1.5 mg (0.5 mL) subcut QWEEK 2 mL 5RF Discontinued dulaglutide (Trulicity) Discontinued Reason: Doctor's Order 0.75 mg (0.5 mL) subcut QWEEK 6 mL 4RF Coding Level of Care Code Est Pt Level 4 (81504) Complex EM visit Add On G2211 Diagnoses Controlled type 2 diabetes mellitus with insulin therapy E11.9; Z79.4 Essential hypertension I10 Dyslipidemia E78.5
[2024-05-03 10:48] VITALS: BP 138/64; PULSE 78; BMI 40.6
[2024-05-03 11:02] LABS: Glucose, Whole Blood 269 mg/dL (60-115)
== END 2024-05-03 11:14 | disposition home or self-care (01) ==
PROVIDERS: PCP Internal Medicine; Visit Provider Physician Assistant
DX: E11.9 Type 2 diabetes mellitus without complications (principal); Z79.4 Long term (current) use of insulin; I10 Essential (primary) hypertension; E78.5 Hyperlipidemia, unspecified; Z13.9 Encounter for screening, unspecified

== ENCOUNTER → 2024-05-03 09:57 | Outpatient (BNVA) | payer OTHER, SELFPAY | PROVIDERS: PCP Internal Medicine; Visit Provider Physician Assistant | DX: E11.9 Type 2 diabetes mellitus without complications (principal); E78.5 Hyperlipidemia, unspecified; I10 Essential (primary) hypertension; Z79.4 Long term (current) use of insulin | CPT/HCPCS: 82947; 83036; 99212 ==

== ENCOUNTER 2024-05-17 | Outpatient (REF) | payer OTHER, SELFPAY ==
--- NOTE | 2024-05-13 14:59 | HO.ANESPROP2 ---
HPI - Anesthesia Eval Consult details Narrative: 68yo F for Colonoscopy Anesthesia Pre-Procedure Meds Is the patient on any of the following meds?: GLP1/DPP4 PMFSH Active Problems Active Problems: All Active Problems Controlled type 2 diabetes mellitus with insulin therapy (Acute) Chronic GERD (Acute) Foreign body in left foot (Acute) Painful arc syndrome of left shoulder (Acute) DORAN (nonalcoholic steatohepatitis) (Acute) Family history of colon cancer (Acute) Pre-op examination (Acute) Urticaria (Acute) Facet arthritis of lumbar region (Acute) Urinary incontinence (Acute) Trigger thumb, left thumb (Acute) Thyroid cancer (Acute) Upper respiratory tract infection (Acute) Allergies (Acute) Chronic idiopathic constipation (Acute) Coarse tremors (Acute) Mild recurrent major depression (Acute) Essential hypertension (Acute) GERD (gastroesophageal reflux disease) (Acute) Rotator cuff impingement syndrome of right shoulder (Acute) Adhesive capsulitis of right shoulder (Acute) Lichen sclerosus of vulva (Acute) Dysuria (Acute) Rotator cuff tear arthropathy of right shoulder (Acute) Dysfunction of right rotator cuff (Acute) Rotator cuff tear, right (Acute) Depression (Acute) Anxiety (Acute) Sacroiliac joint disease (Acute) Lumbar spondylosis (Acute) Acquired hypothyroidism (Acute) Benign essential hypertension (Acute) Obesity (BMI 30-39.9) (Acute) Dyslipidemia (Acute) Past Medical History Medical History (Updated 05/03/24 @ 10:06 by Radha Chavira PA-C) DM2 (diabetes mellitus, type 2) Diabetes mellitus Pain of left thumb Right upper quadrant pain AC (acromioclavicular) arthritis Hypertension Elevated LFTs Osteoarthritis (arthritis due to wear and tear of joints) Physical exam Colon cancer screening Allergic reaction Back pain Right arm pain Vulvar irritation Encounter for annual routine gynecological examination Impacted cerumen of left ear Rash Lower back pain Abnormal laboratory test result Back pain Mild recurrent major depression Thyroid cancer Depression Anxiety Sacroiliac joint disease Lumbar spondylosis GERD without esophagitis Acquired hypothyroidism Benign essential hypertension Constipation Obesity (BMI 30-39.9) Dyslipidemia 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 Mother Diabetes Sister Lung cancer Brother H/O heart surgery Diabetes Son Epilepsy Family history of problems with anesthesia: No Surgical History Surgical History Status post right rotator cuff repair Hx of shoulder surgery History of liver biopsy History of esophagogastroduodenoscopy (EGD) Hx of colonoscopy History of cholecystectomy History of bladder surgery H/O thyroidectomy History of Problems with Anesthesia: No Social History Social History Household Members: Significant Other Housing: Apartment Unable to assess alcohol history related to: Unknown Alcohol intake: never Patient Tobacco Use Status: Never used Tobacco e-Cigarette/Vaping Use: Never Used Second Hand Smoke Exposure: No service: No Current occupational status: disabled Gender identity: Female Cognitive needs: Yes Hearing needs: No Vision needs: No Meds Allergies Allergy/AdvReac Type Severity Reaction Status Date / Time enalapril [ENALAPRIL] Allergy Intermediate Cough Verified 05/03/24 10:55 cephalexin [From KEFLEX] Allergy Mild rash Verified 05/03/24 10:55 ciprofloxacin [CIPROFLOXACIN] Allergy Mild HIVES,RASH Verified 05/03/24 10:55 levothyroxine sodium Allergy Mild RASH WITH Verified 05/03/24 10:55 [LEVOTHYROXINE SODIUM] GENERIC MED nitrofurantoin Allergy Mild RASH Verified 05/03/24 10:55 [NITROFURANTOIN] Penicillins [PENICILLINS] Allergy Mild RASH Verified 05/03/24 10:55 sulfamethoxazole Allergy Mild rash Verified 05/03/24 10:55 [From BACTRIM] trimethoprim [From BACTRIM] Allergy Mild rash Verified 05/03/24 10:55 dulaglutide [From Trulicity] AdvReac Unknown Rash Verified 05/03/24 10:55 ALL GENERIC MEDS Allergy Mild Rash Uncoded 05/03/24 10:55 SHRIMP Allergy Unknown Unknown Uncoded 05/03/24 10:55 Home Medications ?Medication ?Instructions ?Recorded ?Confirmed ?Last Taken ?Type escitalopram oxalate 10 mg tablet 10 mg PO DAILY 06/26/20 03/24/24 Unknown History clobetasol 0.05 % topical ointment 1 appl topical DAILY 04/02/22 03/24/24 Unknown History azelastine 137 mcg (0.1 %) nasal 1 spray intranasal BID 07/02/22 03/24/24 Unknown History spray betamethasone valerate 0.1 % 1 appl topical BID 07/02/22 03/24/24 Unknown History topical cream ketotifen fumarate 0.025 % (0.035 0 drp ophthalmic (eye) 07/02/22 03/24/24 Unknown History %) eye drops tacrolimus 0.1 % topical ointment topical 11/26/22 03/24/24 Unknown History triamcinolone acetonide 0.025 % appl topical 11/26/22 03/24/24 Unknown History topical cream ramelteon 8 mg tablet 8 mg PO DAILY 12/27/22 03/24/24 Unknown History mirabegron 50 mg tablet,extended 50 mg PO DAILY 10/17/23 03/24/24 Unknown History release 24 hr (Myrbetriq) Exam Pertinent Lab Results Pertinent Lab Results: Laboratory Tests 06/05/23 01/15/24 07:12 09:30 WBC 6.8 Hgb 12.3 Hct 37.5 Plt Count 195 D Sodium 144 Potassium 3.5 Chloride 105 Carbon Dioxide 30 H BUN 15 Creatinine 0.73 Narrative Narrative: EKG 2023 Vent. Rate : 065 BPM Atrial Rate : 065 BPM P-R Int : 192 ms QRS Dur : 078 ms QT Int : 390 ms P-R-T Axes : 039 007 035 degrees QTc Int : 405 ms Normal sinus rhythm Minimal voltage criteria for LVH, may be normal variant ( R in aVL ) Borderline ECG When compared with ECG of 12-NOV-2022 09:02, No significant change was found Assessment and Plan Assessment Anesthesia Assessment: Chart Reviewed Final Anesthetic Review Family History of Problems with Anesthesia: No History of Problems with Anesthesia: No
== END 2024-05-17 00:01 | disposition home or self-care (01) ==
LOC: CF
PROVIDERS: PCP Internal Medicine; Visit Provider Registered Nurse
DX: M25.511 Pain in right shoulder (principal); M25.561 Pain in right knee; M25.562 Pain in left knee; M25.521 Pain in right elbow; M25.522 Pain in left elbow; W19.XXXA Unspecified fall, initial encounter; K59.04 Chronic idiopathic constipation; Z80.0 Family history of malignant neoplasm of digestive organs
CPT/HCPCS: 99212

== ENCOUNTER 2024-05-17 09:38 | Outpatient (AMB) | payer OTHER, SELFPAY ==
--- NOTE | 2024-05-17 10:47 | MHC.OFFWIV ---
Intake Vital Signs 05/17/24 10:51 Height 5 ft 4 in Weight 237 lb BMI 40.7 BP 120/78 Blood Pressure Location Rt brachial Position Sitting Pulse 72 Pulse Source Pulse Oximeter Pulse Oximetry (%) 98 Oxygen Delivery Method Room Air Intake Visit Reasons: EP-b/l arms, b/l knee pain & swollen from a fall Intake Note: Patient here for bilat arm and bilat knee pain, she state she had a fall on friday. Patient Tobacco Use Status: Never used Tobacco Allergies enalapril [ENALAPRIL] Allergy (Intermediate, Verified 05/17/24 10:52) Cough cephalexin [From KEFLEX] Allergy (Mild, Verified 05/17/24 10:52) rash ciprofloxacin [CIPROFLOXACIN] Allergy (Mild, Verified 05/17/24 10:52) HIVES,RASH levothyroxine sodium [LEVOTHYROXINE SODIUM] Allergy (Mild, Verified 05/17/24 10:52) RASH WITH GENERIC MED nitrofurantoin [NITROFURANTOIN] Allergy (Mild, Verified 05/17/24 10:52) RASH Penicillins [PENICILLINS] Allergy (Mild, Verified 05/17/24 10:52) RASH sulfamethoxazole [From BACTRIM] Allergy (Mild, Verified 05/17/24 10:52) rash trimethoprim [From BACTRIM] Allergy (Mild, Verified 05/17/24 10:52) rash dulaglutide [From Trulicity] Adverse Reaction (Unknown, Verified 05/17/24 10:52) Rash ALL GENERIC MEDS Allergy (Mild, Uncoded 05/17/24 10:52) Rash SHRIMP Allergy (Unknown, Uncoded 05/17/24 10:52) Unknown Do you need a note to return to daycare/school/sports/work: No HPI EP-b/l arms, b/l knee pain & swollen from a fall HPI Details This note is constructed using voice recognition software. While every effort has been made to ensure accuracy, hydraulic modeling engineer errors may have been included. The patient is a 68 year old female who presents to the clinic today with pain in knees, elbows, and right shoulder after a fall last week. She notes that she was in [place] for a when she slipped, fell under a table, and a chair fell on top of her. She reports that she landed primarily on her knees and elbows with pressure up into her right shoulder on the land. She needed help to get up, and has had pain ever since. She uses a cane for ambulation at baseline. She denies reduced range of motion, and has not taken anything to help the pain. [facility] Medical History (Updated 05/03/24 @ 10:06 by Radha Chavira PA-C) DM2 (diabetes mellitus, type 2) Diabetes mellitus Pain of left thumb Right upper quadrant pain AC (acromioclavicular) arthritis Hypertension Elevated LFTs Osteoarthritis (arthritis due to wear and tear of joints) Physical exam Colon cancer screening Allergic reaction Back pain Right arm pain Vulvar irritation Encounter for annual routine gynecological examination Impacted cerumen of left ear Rash Lower back pain Abnormal laboratory test result Back pain Mild recurrent major depression Thyroid cancer Depression Anxiety Sacroiliac joint disease Lumbar spondylosis GERD without esophagitis Acquired hypothyroidism Benign essential hypertension Constipation Obesity (BMI 30-39.9) Dyslipidemia 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 Mother Diabetes Sister Lung cancer Brother H/O heart surgery Diabetes Son Epilepsy Social History Household Members: Significant Other Housing: Apartment Unable to assess alcohol history related to: Unknown Alcohol intake: never Patient Tobacco Use Status: Never used Tobacco e-Cigarette/Vaping Use: Never Used Second Hand Smoke Exposure: No service: No Current occupational status: disabled Gender identity: Female Cognitive needs: Yes Hearing needs: No Vision needs: No Female Reproductive History Menstrual Age of Menarche: 13 Review of Systems Const All systems reviewed & are unremarkable except as noted in HPI and below Physical Exam Vital Signs: Last Vital Signs Pulse 72 05/17/24 10:51 BP 120/78 05/17/24 10:51 Pulse Ox 98 05/17/24 10:51 Oxygen Delivery Method Room Air 05/17/24 10:51 BMI result Body Mass Index 40.7 Const General: cooperative, healthy appearing, comfortable, no acute distress and well developed Orientation/consciousness: patient oriented x3 Limitations: no limitations Resp Effort & Inspection: normal respiratory effort and able to speak in complete sentences Neuro General: patient oriented x3 Extrem Other: Tender to palpation over bilateral patella, no crepitus, normal range of motion, slight swelling present. Tender to palpation over bilateral elbows, full range of motion. Distal strength and neurovascular exam normal and intact. Right shoulder with reduced abduction to 90 degrees. No ecchymosis, erythema present. Results Reviewed Results Reviewed: XR images contemporaneously read by me with no obvious fractures visible on x-ray. Assessment & Plan Assessment & Plan (1) Right shoulder pain: Code(s): M25.511 - Pain in right shoulder Qualifiers: Chronicity: acute Qualified Code(s): M25.511 - Pain in right shoulder Plan: No obvious fracture on x-ray. Advised NSAIDs and Tylenol as needed for pain. Advised rest, ice. Advised follow up with worsening or failure to resolve. (2) Fall: Code(s): W19.XXXA - Unspecified fall, initial encounter Qualifiers: Encounter type: initial encounter Qualified Code(s): W19.XXXA - Unspecified fall, initial encounter Plan: Advised use of cane, consider follow up with PCP with any repeat episodes as she may benefit from physical therapy at that point for strength training. (3) Knee pain: Code(s): M25.569 - Pain in unspecified knee Qualifiers: Chronicity: acute Laterality: bilateral Qualified Code(s): M25.561 - Pain in right knee; M25.562 - Pain in left knee Plan: No obvious fracture on x-ray. Advised NSAIDs and Tylenol as needed for pain. Advised rest, ice. Advised follow up wit (4) Elbow pain: Code(s): M25.529 - Pain in unspecified elbow Qualifiers: Laterality: bilateral Qualified Code(s): M25.521 - Pain in right elbow; M25.522 - Pain in left elbow Plan: No obvious fracture on x-ray. Advised NSAIDs and Tylenol as needed for pain. Advised rest, ice. Advised follow up wit Plan See above for full details and plan. Orders: Orders XR shoulder RT min 2V Today M25.519 - Pain in unspecified shoulder, M25.529 - Pain in unspecified elbow, M25.569 - Pain in unspecified knee, W19.XXXA - Unspecified fall, initial encounter Coding Level of Care Code Est Pt Level 4 (22886) Diagnoses Acute pain of right shoulder M25.511 Chronicity: acute Fall, initial encounter W19.XXXA Encounter type: initial encounter Acute pain of both knees M25.561; M25.562 Chronicity: acute Laterality: bilateral Pain of both elbows M25.521; M25.522 Laterality: bilateral
[2024-05-17 10:51] VITALS: BP 120/78; PULSE 72; O2SAT 98; BMI 40.7
== END 2024-05-17 12:42 | disposition home or self-care (01) ==
PROVIDERS: PCP Internal Medicine; Visit Provider Registered Nurse
DX: M25.511 Pain in right shoulder (principal); W19.XXXA Unspecified fall, initial encounter; M25.561 Pain in right knee; M25.562 Pain in left knee; M25.521 Pain in right elbow; M25.522 Pain in left elbow

== ENCOUNTER 2024-05-17 11:32 | Outpatient (REF) | payer OTHER, SELFPAY ==
--- NOTE | ~2024-05-17 | XR_ITS ---
EXAMINATION: XR ELBOW, RIGHT XR ELBOW, LEFT CLINICAL INFORMATION: Fall. Pain. COMPARISON: None. TECHNIQUE: AP, oblique, and lateral views of the right and left elbow. FINDINGS: Right elbow: No acute fracture or dislocation. Mild ulnar trochlear joint space narrowing with tiny marginal osteophytes. No osseous erosion. Tiny dorsal olecranon enthesophyte. No joint effusion. Left elbow: No acute fracture or dislocation. Mild ulnotrochlear joint space narrowing with tiny marginal osteophytes. No osseous erosion. Tiny dorsal olecranon enthesophyte. No joint effusion. XR/XR elbow LT min 3V IMPRESSION: RIGHT ELBOW: No acute fracture or dislocation. Mild ulnar trochlear osteoarthritis. Tiny dorsal olecranon spur. LEFT ELBOW: No acute fracture or dislocation. Mild ulnotrochlear osteoarthritis. Tiny dorsal olecranon spur. Electronically signed by: Naman Holloway MD 05/17/2024 02:16 PM EDT
--- NOTE | ~2024-05-17 | XR_ITS ---
EXAMINATION: XR KNEE, RIGHT XR KNEE, LEFT CLINICAL INFORMATION: Fall. Pain. COMPARISON: Right femur radiographs dated 12/14/2019 and left knee radiographs dated 10/21/2018. TECHNIQUE: AP and lateral views of the right and left knee. FINDINGS: Right knee: No acute fracture or dislocation. No joint space narrowing. Tiny patellofemoral compartment marginal osteophytes. Medial and lateral compartment chondrocalcinosis. Small superior patellar enthesophyte. No joint effusion. Left knee: Minimal medial compartment joint space narrowing. Tiny patellofemoral and medial compartment marginal osteophytes. Medial and lateral compartment chondrocalcinosis. No acute fracture or dislocation. No joint effusion. XR/XR knee LT 2V IMPRESSION: RIGHT KNEE: Minimal patellofemoral compartment osteoarthritis. Medial and lateral compartment chondrocalcinosis. LEFT KNEE: Minimal medial and patellofemoral compartment osteoarthritis. Medial and lateral compartment chondrocalcinosis. Electronically signed by: Naman Holloway MD 05/17/2024 02:23 PM EDT
--- NOTE | ~2024-05-17 | XR_ITS ---
EXAMINATION: XR ELBOW, RIGHT XR ELBOW, LEFT CLINICAL INFORMATION: Fall. Pain. COMPARISON: None. TECHNIQUE: AP, oblique, and lateral views of the right and left elbow. FINDINGS: Right elbow: No acute fracture or dislocation. Mild ulnar trochlear joint space narrowing with tiny marginal osteophytes. No osseous erosion. Tiny dorsal olecranon enthesophyte. No joint effusion. Left elbow: No acute fracture or dislocation. Mild ulnotrochlear joint space narrowing with tiny marginal osteophytes. No osseous erosion. Tiny dorsal olecranon enthesophyte. No joint effusion. XR/XR elbow RT min 3V IMPRESSION: RIGHT ELBOW: No acute fracture or dislocation. Mild ulnar trochlear osteoarthritis. Tiny dorsal olecranon spur. LEFT ELBOW: No acute fracture or dislocation. Mild ulnotrochlear osteoarthritis. Tiny dorsal olecranon spur. Electronically signed by: Naman Holloway MD 05/17/2024 02:16 PM EDT
--- NOTE | ~2024-05-17 | XR_ITS ---
EXAMINATION: XR KNEE, RIGHT XR KNEE, LEFT CLINICAL INFORMATION: Fall. Pain. COMPARISON: Right femur radiographs dated 12/14/2019 and left knee radiographs dated 10/21/2018. TECHNIQUE: AP and lateral views of the right and left knee. FINDINGS: Right knee: No acute fracture or dislocation. No joint space narrowing. Tiny patellofemoral compartment marginal osteophytes. Medial and lateral compartment chondrocalcinosis. Small superior patellar enthesophyte. No joint effusion. Left knee: Minimal medial compartment joint space narrowing. Tiny patellofemoral and medial compartment marginal osteophytes. Medial and lateral compartment chondrocalcinosis. No acute fracture or dislocation. No joint effusion. XR/XR knee RT 2V IMPRESSION: RIGHT KNEE: Minimal patellofemoral compartment osteoarthritis. Medial and lateral compartment chondrocalcinosis. LEFT KNEE: Minimal medial and patellofemoral compartment osteoarthritis. Medial and lateral compartment chondrocalcinosis. Electronically signed by: Naman Holloway MD 05/17/2024 02:23 PM EDT
--- NOTE | ~2024-05-17 | XR_ITS ---
EXAMINATION: XR SHOULDER, RIGHT CLINICAL INFORMATION: Fall. Pain. COMPARISON: Right shoulder MRI dated 03/29/2021. TECHNIQUE: AP, Grashey, and scapular Y views of the right shoulder. FINDINGS: Orthopedic anchor within the humeral head consistent with rotator cuff tendon repair. No acute fracture or dislocation. Mild acromio clavicular joint space narrowing with small marginal osteophytes. Tiny glenohumeral marginal osteophytes. No osseous erosion. No abnormal soft tissue calcification. Partially visualized cervical surgical clips. XR/XR shoulder RT min 2V IMPRESSION: 1. No acute fracture or dislocation. 2. Mild acromioclavicular and minimal glenohumeral osteoarthritis. Electronically signed by: Naman Holloway MD 05/17/2024 02:17 PM EDT
== END 2024-05-17 11:33 | disposition home or self-care (01) ==
LOC: HO.HMGCX 11:32
PROVIDERS: PCP Internal Medicine; Visit Provider Registered Nurse
DX: M25.511 Pain in right shoulder (principal); M25.561 Pain in right knee; M25.562 Pain in left knee; M25.521 Pain in right elbow; M25.522 Pain in left elbow; W19.XXXA Unspecified fall, initial encounter
CPT/HCPCS: 73030; 73080; 73560

== ENCOUNTER 2024-05-24 09:18 | Outpatient (REF) | payer OTHER, SELFPAY ==
--- NOTE | ~2024-05-24 | XR_ITS ---
EXAMINATION: XR SHOULDER, LEFT CLINICAL INFORMATION: Pain. COMPARISON: None available. TECHNIQUE: AP external rotation, Grashey, scapular Y, and axillary views of the left shoulder. FINDINGS: Bony alignment and mineralization are normal. The glenohumeral joint is intact. The acromioclavicular and coracoclavicular intervals are normal. There is a tiny distal acromial undersurface osteophyte, and there is slight cortical irregularity of the greater tuberosity of the proximal left humerus. No unusual soft tissue calcification or foreign body is seen. No fracture or dislocation is seen. There is no pneumothorax. XR/XR shoulder LT min 2V IMPRESSION: 1. No fracture or dislocation is seen. 2. Findings suggest rotator cuff impingement, without juanita calcific tendinitis noted. Electronically signed by: Sukh Krishnan MD 06/22/2024 08:46 AM [facility]
--- NOTE | ~2024-05-24 | MM_ITS ---
EXAMINATION: MM SCREENING DIGITAL BREAST TOMOSYNTHESIS, BILATERAL CLINICAL INFORMATION: Screening. Asymptomatic. COMPARISON: Mammography: Comparison is made with available priors TECHNIQUE: Digital breast mammography with tomosynthesis is performed in both the craniocaudal and mediolateral oblique views along with computer-aided detection (CAD). FINDINGS: There are scattered areas of fibroglandular density (ACR BI-RADS breast composition Category b). There are no significant masses, abnormal calcifications, or other abnormalities. MM/MM tomosynthesis screening BI IMPRESSION: No mammographic evidence of malignancy. ASSESSMENT: BI-RADS BI-RADS 1 - Negative RECOMMENDATION: Routine annual mammography screening. 1 year F/U This examination should not preclude the clinical evaluation of a suspicious palpable abnormality. This patient's information was entered into a reminder system with a target due date for their next mammogram. Electronically signed by: Minda Gibbs DO 06/01/2024 11:23 AM [facility]
--- NOTE | ~2024-05-24 | XR_ITS ---
EXAMINATION: XR SHOULDER, RIGHT CLINICAL INFORMATION: Right shoulder pain. COMPARISON: Right shoulder radiographs dated 05/17/2024. TECHNIQUE: AP external rotation, Grashey, scapular Y, and axillary views of the right shoulder. FINDINGS: Orthopedic anchor redemonstrated within the humeral head. No acute fracture or dislocation. Mild acromioclavicular osteoarthritis, unchanged. No glenohumeral joint space narrowing or marginal osteophytes. No osseous erosion. No abnormal soft tissue calcification. XR/XR shoulder RT min 2V IMPRESSION: 1. Mild acromioclavicular osteoarthritis, unchanged. 2. Orthopedic anchor redemonstrated within the humeral head. Electronically signed by: Naman Holloway MD 07/19/2024 04:51 PM [facility]
== END 2024-05-24 09:19 | disposition home or self-care (01) ==
LOC: HO.MAMMO 09:18
PROVIDERS: PCP Internal Medicine; Visit Provider Internal Medicine
DX: M25.511 Pain in right shoulder (principal); M25.512 Pain in left shoulder; I10 Essential (primary) hypertension; E11.9 Type 2 diabetes mellitus without complications; N39.41 Urge incontinence; Z79.4 Long term (current) use of insulin; Z28.21 Immunization not carried out because of patient refusal; Z12.31 Encounter for screening mammogram for malignant neoplasm of breast
CPT/HCPCS: 73030; 77063; 77067; 90471; 99212

== ENCOUNTER → 2024-05-24 10:15 | Outpatient (BNV) | payer OTHER, SELFPAY | PROVIDERS: PCP Internal Medicine; Visit Provider Internal Medicine | DX: Z12.31 Encounter for screening mammogram for malignant neoplasm of breast (principal) | CPT/HCPCS: 77063; 77067 ==

== ENCOUNTER 2024-05-24 11:38 | Outpatient (AMB) | payer OTHER, SELFPAY ==
[2024-05-24 12:16] VITALS: BP 172/70; BMI 39.8
--- NOTE | 2024-05-24 12:16 | MHC.PC.OV ---
Vital Signs 05/24/24 12:16 05/24/24 12:54 Height 5 ft 4 in Weight 232 lb BMI 39.8 BP 172/70 H 170/70 H Blood Pressure Location Lt brachial Lt brachial Position Sitting Sitting Intake Visit Reasons: Rt shoulder pain/ referral and pain med request Film Tests Checker Required: No Accompanied by: [employer] Allergies enalapril [ENALAPRIL] Allergy (Intermediate, Verified 05/24/24 12:29) Cough cephalexin [From KEFLEX] Allergy (Mild, Verified 05/24/24 12:29) rash ciprofloxacin [CIPROFLOXACIN] Allergy (Mild, Verified 05/24/24 12:29) HIVES,RASH levothyroxine sodium [LEVOTHYROXINE SODIUM] Allergy (Mild, Verified 05/24/24 12:29) RASH WITH GENERIC MED nitrofurantoin [NITROFURANTOIN] Allergy (Mild, Verified 05/24/24 12:29) RASH Penicillins [PENICILLINS] Allergy (Mild, Verified 05/24/24 12:29) RASH sulfamethoxazole [From BACTRIM] Allergy (Mild, Verified 05/24/24 12:29) rash trimethoprim [From BACTRIM] Allergy (Mild, Verified 05/24/24 12:29) rash dulaglutide [From Trulicity] Adverse Reaction (Unknown, Verified 05/24/24 12:29) Rash ALL GENERIC MEDS Allergy (Mild, Uncoded 05/24/24 12:29) Rash SHRIMP Allergy (Unknown, Uncoded 05/24/24 12:29) Unknown Medication List - Last Reconciled 05/24/24 by Yael Talbot MD acetaminophen (Tylenol Extra Strength) 500 mg PO Q6H PRN 30 days [adult diapers As directed] [air conditioner As directed] atorvastatin 80 mg PO BEDTIME 90 days azelastine 1 spray intranasal BID betamethasone valerate 0.1% 1 appl topical BID bisacodyl (Dulcolax (bisacodyl)) Take 2 tabs twie a day 2 days before procedure and 2 tabs am of procedure orally bedtime; 2 days blood sugar diagnostic (FreeStyle Lite Strips) 1 strip miscellaneous TID 90 days blood sugar diagnostic (FreeStyle Lite Strips) As directed tests 4X/day blood-glucose meter (FreeStyle Lite Meter kit) As directed cane As directed carbamide peroxide 6.5% (Debrox) 5 drps otic (ears) DAILY 4 days clobetasol 0.05% 1 appl topical DAILY cyclobenzaprine 5 mg PO TID PRN diclofenac sodium 1% 2 grams topical QID 1 month dicyclomine 20 mg PO TID 30 days diphenhydramine HCl (Banophen) 25 mg PO BEDTIME PRN 30 days disposable gloves (Biobrane Gloves Large) As directed docusate sodium 100 mg PO DAILY dulaglutide (Trulicity) 1.5 mg (0.5 mL) subcut QWEEK escitalopram oxalate 10 mg PO DAILY flash glucose scanning reader (Codeoscopic Carley 2 [place]) As directed flash glucose sensor (Scary Mommyyle Carley 2 Sensor kit) As directed change every 14 days humidifiers As directed hydrochlorothiazide 25 mg PO DAILY 90 days NS hydrocortisone 1% (Anti-Itch (hydrocortisone)) 1 appl topical BID PRN 14 days insulin glargine (Lantus Solostar U-100 Insulin) 16 units (0.16 mL) subcut DAILY 30 days ketotifen fumarate 0.025%(0.035%) 0 drps ophthalmic (eye) lancets (FreeStyle Lancets) 3 times aday lidocaine 5% (Lidoderm) 1 patch topical DAILY PRN MDD remove after 12 hours lidocaine 5% 1 patch topical DAILY losartan 50 mg PO DAILY 90 days meloxicam 15 mg PO DAILY 90 days metformin 1,000 mg (2 x 500 mg) PO BID mirabegron ER (Myrbetriq) 50 mg PO DAILY montelukast 10 mg PO DAILY 30 days naproxen 500 mg PO BID PRN 10 days omeprazole 20 mg PO DAILY 90 days pen needle, diabetic (BD Ultra-Fine Aarti Pen Needle) 1 ea subcut DAILY plecanatide (Trulance) 3 mg PO DAILY [powerseat lift chair As directed] ramelteon 8 mg PO DAILY [shower head As directed] silver sulfadiazine 1% (Silvadene) 1 appl topical DAILY sodium,potassium,mag sulfates 17.5-3.13-1.6 gram (Suprep Bowel Prep Kit) 480 mL orally; Synthroid (levothyroxine) 150 mcg PO DAILY 90 days NS tacrolimus 0.1% topical [toilet seat elevator As directed] tramadol 50 mg PO BID PRN triamcinolone acetonide 0.025% appl topical underpads (Bed Underpads) Use 1 to 3 once a day prn white petrolatum 41% (Aquaphor Healing) 1 appl topical DAILY PRN 2 weeks [wipes As directed] Tobacco use date assessed: 10/07/23 Fall risk assessment: 1 Fall in past year Last assessed Fall Risk: 05/24/24 Dental Screening Dental Screen Date: 05/24/24 Did you have a dental visit in the last 12 months?: No Did you have a dental problem in the last 6 months where you did not have access to dental care?: No Was dental information given to patient?: Patient has dentist HPI HPI Comments History of Present Illness Details This is a 68-year-old female with hypertension and diabetes mellitus type 2 on long-term current use of insulin that comes accompanied by [employer] complaining of bilateral shoulder pain that started few days ago. She fell in [place] and hit her shoulders and her knees. No loss of consciousness in the fall. No hitting her head in the fall. Walks with a cane for gait stability. Has limited range of motion in both shoulders but declines physical therapy. Would like x-rays. Also has urge urinary incontinence and will benefit from a commode. Blood pressure elevated and will be recheck in 3 weeks by nurse navigator. Last A1c was slightly elevated and this is follow by Endocrinology. [facility] Medical History (Updated 05/24/24 @ 12:55 by Yael Talbot MD) Diabetes mellitus DM2 (diabetes mellitus, type 2) Pain of left thumb Right upper quadrant pain AC (acromioclavicular) arthritis Hypertension Elevated LFTs Osteoarthritis (arthritis due to wear and tear of joints) Physical exam Colon cancer screening Allergic reaction Back pain Right arm pain Vulvar irritation Encounter for annual routine gynecological examination Impacted cerumen of left ear Rash Lower back pain Abnormal laboratory test result Back pain Mild recurrent major depression Thyroid cancer Depression Anxiety Sacroiliac joint disease Lumbar spondylosis GERD without esophagitis Acquired hypothyroidism Benign essential hypertension Constipation Obesity (BMI 30-39.9) Dyslipidemia nursing home (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 Mother Diabetes Sister Lung cancer Brother H/O heart surgery Diabetes Son Epilepsy Social History Household Members: Significant Other Housing: Apartment Unable to assess alcohol history related to: Unknown Alcohol intake: never Patient Tobacco Use Status: Never used Tobacco e-Cigarette/Vaping Use: Never Used Second Hand Smoke Exposure: No service: No Current occupational status: disabled Gender identity: Female Cognitive needs: Yes Hearing needs: No Vision needs: No Female Reproductive History Menstrual Age of Menarche: 13 Questionnaire Thrive Questionnaire Date Thrive assessed: 10/07/23 DENIS-7 AMB Questionnaire DENIS-7 Date DENIS - 7 assessed: 10/07/23 Source: Developed by Drs. Leland Gregorio, Elda Quinteros, Lamin Pierre and colleagues, with an educational edilberto from [employer]. Review of Systems Const All systems reviewed & are unremarkable except as noted in HPI and below Card Denies chest pain at rest, Denies chest pain with activity, Denies edema, Denies irregular heart rhythm, Denies claudication, Denies dyspnea, Denies dyspnea on exertion, Denies orthopnea, Denies paroxysmal nocturnal dyspnea and Denies slow heart rate Resp Denies cough, Denies dyspnea and Denies dyspnea on exertion GI Denies abdominal pain, Denies change in bowel habits, Denies excessive flatus, Denies nausea and Denies vomiting Musc Reports arthralgias and Reports limited range of motion Neuro Denies behavioral changes and Denies lack of coordination Psych Denies behavioral changes Physical exam (Primary Care) Vital Signs: Last Vital Signs BP 172/70 H 05/24/24 12:16 Care Plan Goal for BP management: Recheck blood pressure with nurse navigator in 3 weeks. Next steps: Advised low-salt diet BMI result Body Mass Index 39.8 BMI Assessment/Plan discussion: High BMI High, discussed plan: lifestyle, weight reduction, dietary and physical activity Tobacco/Smoking Status: Tobacco use Status Tobacco use date assessed 10/07/23 05/24/24 12:16 Patient Tobacco Use Status Never used Tobacco 05/24/24 12:16 e-Cigarette/Vaping Use Never Used 05/24/24 12:16 Thrive Assessment: Date of Thrive Assessment Date Thrive assessed 10/07/23 05/24/24 12:16 Const Limitations: ambulation with cane Resp Effort & Inspection: normal respiratory effort Auscultation: clear to auscultation bilaterally Cardio Jugular venous distension: no JVD Rate: regular rate Rhythm: regular rhythm Heart sounds: S1 normal heart sound present and S2 normal heart sound present Extrem Right upper extremity: shoulder/upper arm Details: abnormal ROM Details: pain with active ROM Details: in ABduction and in extension Left upper extremity: shoulder/upper arm Details: abnormal ROM Details: pain with active ROM Details: in ABduction and in extension Office Procedures Flu Questionnaire Does the patient have a severe egg allergy?: No Immunizations Fluarix Triv [id number] (PF) 45 mcg (15 mcg x 3)/0.5 mL IM syringe Performing Provider: Yael Talbot MD Performing [facility] [place] [facility] Documented (not given) by: DOM Duvall on 05/24/24 12:27 Reason Not Given: Patient Refused Coding Level of Care Code Est Pt Level 4 (04650) Complex EM visit Add On G2211 Diagnoses Urge urinary incontinence N39.41 Type 2 diabetes mellitus without complication, with long-term current use of insulin E11.9; Z79.4 Diabetes mellitus type: type 2 Diabetes mellitus long term care phlebotomist insulin use: with long term care phlebotomist use Diabetes mellitus complication status: without complication Acute pain of right shoulder M25.511 Chronicity: acute Acute pain of left shoulder M25.512 Chronicity: acute Essential hypertension I10 Time Spent (min) 21 Assessment & Plan Assessment & Plan (1) Urge urinary incontinence: Code(s): N39.41 - Urge incontinence Category: Medical Plan: Use a commode prn (2) Diabetes mellitus: Code(s): E11.9 - Type 2 diabetes mellitus without complications Category: Medical Qualifiers: Diabetes mellitus type: type 2 Diabetes mellitus senior living insulin use: with long term care phlebotomist use Diabetes mellitus complication status: without complication Qualified Code(s): E11.9 - Type 2 diabetes mellitus without complications; Z79.4 - nursing home (current) use of insulin Plan: Continue insulin. A1c goal is equal or less than 7%. (3) Right shoulder pain: Code(s): M25.511 - Pain in right shoulder Category: Medical Qualifiers: Chronicity: acute Qualified Code(s): M25.511 - Pain in right shoulder Plan: X-ray ordered. (4) Left shoulder pain: Code(s): M25.512 - Pain in left shoulder Category: Medical Qualifiers: Chronicity: acute Qualified Code(s): M25.512 - Pain in left shoulder Plan: X-ray ordered (5) Essential hypertension: Code(s): I10 - Essential (primary) hypertension Category: Medical Plan: Continue losartan. Blood pressure goal is equal or less than 130/80. Orders: Orders Influenza [id number] Immunization Today Z23 - Encounter for immunization XR shoulder RT min 2V Today M25.511 - Pain in right shoulder XR shoulder LT min 2V Today M25.512 - Pain in left shoulder Medications: New commode (bedside commode) As directed 1 ea 0RF N39.41 - Urge incontinence Refilled omeprazole 20 mg PO DAILY 90 days 90 caps 0RF tramadol 50 mg PO BID PRN 10 tabs 0RF pain M75.01 - Adhesive capsulitis of right shoulder, M79.601 - Pain in right arm
[2024-05-24 12:54] VITALS: BP 170/70
== END 2024-05-24 12:42 | disposition home or self-care (01) ==
LOC: HO.HMCH 11:39
PROVIDERS: PCP Internal Medicine; Visit Provider Internal Medicine
DX: N39.41 Urge incontinence (principal); E11.9 Type 2 diabetes mellitus without complications; Z79.4 Long term (current) use of insulin; M25.511 Pain in right shoulder; M25.512 Pain in left shoulder; I10 Essential (primary) hypertension; Z23 Encounter for immunization

== ENCOUNTER → 2024-06-10 09:26 | Outpatient (BNVA) | payer OTHER, SELFPAY | PROVIDERS: PCP Internal Medicine ==

== ENCOUNTER 2024-06-11 07:29 | Emergency (ER) | payer OTHER, SELFPAY ==
[2024-06-11 07:36] VITALS: BP 145/57; PULSE 70; O2SAT 99; BMI 40.9
[2024-06-11 07:43] VITALS: BP 151/59; PULSE 73; RESP 66; TEMP 36.4; O2SAT 98
[2024-06-11 07:55] LABS: Glucose, Whole Blood 101 mg/dL (60-115)
--- NOTE | 2024-06-11 07:58 | ED_ITS ---
HPI - Extremity Injury (Lower) General Chief Complaint: Extremity Injury, Lower Stated Complaint: KNEE PAIN Time Seen by Provider: 06/11/24 07:36 Source: patient and educational sign language interpreter Mode of arrival: ambulatory History of Present Illness ED Provider: Jamar RAY Narrative: 68-year-old female, Surinamese speaking, presents with chronic bilateral knee pain since having 6-7 chairs fall on her knees while she was in [place] approximately 4 weeks ago. She denies any associated fever, chills with this knee pain but states that it has become increasingly painful Related Data Home Medications ?Medication ?Instructions ?Recorded ?Confirmed escitalopram oxalate 10 mg tablet 10 mg PO DAILY 06/26/20 05/24/24 clobetasol 0.05 % topical ointment 1 appl topical DAILY 04/02/22 05/24/24 azelastine 137 mcg (0.1 %) nasal 1 spray intranasal BID 07/02/22 05/24/24 spray betamethasone valerate 0.1 % 1 appl topical BID 07/02/22 05/24/24 topical cream ketotifen fumarate 0.025 % (0.035 0 drp ophthalmic (eye) 07/02/22 05/24/24 %) eye drops tacrolimus 0.1 % topical ointment topical 11/26/22 05/24/24 triamcinolone acetonide 0.025 % appl topical 11/26/22 05/24/24 topical cream ramelteon 8 mg tablet 8 mg PO DAILY 12/27/22 05/24/24 mirabegron 50 mg tablet,extended 50 mg PO DAILY 10/17/23 05/24/24 release 24 hr (Myrbetriq) Previous Rx's ?Medication ?Instructions ?Recorded hydrocortisone 1 % topical cream 1 appl topical BID PRN skin 09/01/20 (Anti-Itch (hydrocortisone)) irritation 14 days #28.35 grams lancets 28 gauge (FreeStyle #300 ea 10/16/21 Lancets) white petrolatum 41 % topical 1 appl topical DAILY PRN dry skin 10/31/21 ointment (Aquaphor Healing) 2 weeks #20 grams humidifiers #1 ea 07/12/22 lidocaine 5 % topical patch 1 patch topical DAILY PRN pain #30 11/12/22 (Lidoderm) ea disposable gloves (Biobrane Gloves #100 ea 12/31/22 Large) adult diapers #240 ea 01/07/23 underpads (Bed Underpads) #150 ea 01/07/23 wipes #200 ea 01/07/23 flash glucose sensor (FreeStyle #2 ea 04/08/23 Carley 2 Sensor kit) flash glucose scanning reader #1 ea 04/23/23 (FreeStyle Carley 2 [place]) naproxen 500 mg tablet 500 mg PO BID PRN pain 10 days #20 05/12/23 tabs blood sugar diagnostic (FreeStyle 1 strip miscellaneous TID 90 days 06/04/23 Lite Strips) #300 strips hydrochlorothiazide 25 mg tablet 25 mg PO DAILY 90 days #90 tabs 06/11/23 silver sulfadiazine 1 % topical 1 appl topical DAILY #50 grams 06/17/23 cream (Silvadene) powerseat lift chair #1 ea 06/25/23 blood-glucose meter (FreeStyle #1 ea 10/07/23 Lite Meter kit) cyclobenzaprine 5 mg tablet 5 mg PO TID PRN muscle spasm #10 10/09/23 tabs bisacodyl 5 mg tablet,delayed See Rx Instructions PO BEDTIME 2 10/17/23 release (Dulcolax (bisacodyl)) days #8 tabs dicyclomine 20 mg tablet 20 mg PO TID 30 days #90 tabs 10/17/23 docusate sodium 100 mg capsule 100 mg PO DAILY #30 caps 10/17/23 lidocaine 5 % topical patch 1 patch topical DAILY #15 ea 10/17/23 plecanatide 3 mg tablet (Trulance) 3 mg PO DAILY #30 tabs 10/17/23 sodium,potassium,mag sulfates 17.5 480 ml PO .COMPLEX #354 mL 10/17/23 gram-3.13 gram-1.6 gram oral soln (Suprep Bowel Prep Kit) cane #1 ea 12/01/23 shower head #1 ea 12/01/23 toilet seat elevator #1 ea 12/01/23 carbamide peroxide 6.5 % ear drops 5 drp otic (ears) DAILY 4 days #15 12/25/23 (Debrox) mL air conditioner #1 ea 01/26/24 Synthroid 150 mcg tablet 150 mcg PO DAILY 90 days #90 tabs 01/27/24 (levothyroxine) blood sugar diagnostic (FreeStyle #100 ea 02/02/24 Lite Strips) metformin 500 mg tablet 1,000 mg (2 x 500 mg) PO BID #360 02/02/24 tabs atorvastatin 80 mg tablet 80 mg PO BEDTIME 90 days #90 tabs 02/10/24 meloxicam 15 mg tablet 15 mg PO DAILY 90 days #90 tabs 03/25/24 montelukast 10 mg tablet 10 mg PO DAILY 30 days #30 tabs 04/09/24 pen needle, diabetic 32 gauge x 1 ea subcut DAILY #30 ea 04/21/24 (BD Ultra-Fine Aarti Pen Needle) insulin glargine 100 unit/mL (3 16 unit (0.16 mL) subcut DAILY 30 04/28/24 mL) subcutaneous pen ( #4.8 mL Solostar U-100 Insulin) diclofenac sodium 1 % topical gel 2 g topical QID 1 month #100 grams 04/30/24 dulaglutide 1.5 mg/0.5 mL 1.5 mg (0.5 mL) subcut QWEEK #2 mL 05/03/24 subcutaneous [facility] ([facility] losartan 50 mg tablet 50 mg PO DAILY 90 days #90 tabs 05/08/24 acetaminophen 500 mg tablet 500 mg PO Q6H PRN fever or pain 30 05/22/24 (Tylenol Extra Strength) days #120 tabs omeprazole 20 mg capsule,delayed 20 mg PO DAILY 90 days #90 caps 05/24/24 release tramadol 50 mg tablet 50 mg PO BID PRN pain #10 tabs 05/24/24 commode (bedside commode) #1 ea 06/01/24 hydrocortisone 1 % topical cream 1 appl topical BID PRN skin 06/01/24 (Anti-Itch (hydrocortisone)) irritation 2 weeks #28.4 grams diphenhydramine HCl 25 mg capsule 25 mg PO BEDTIME PRN allergic 06/07/24 (Banophen) reaction 30 days #20 caps Allergies Allergy/AdvReac Type Severity Reaction Status Date / Time enalapril [ENALAPRIL] Allergy Intermediate Cough Verified 06/11/24 07:37 cephalexin [From KEFLEX] Allergy Mild rash Verified 06/11/24 07:37 ciprofloxacin [CIPROFLOXACIN] Allergy Mild HIVES,RASH Verified 06/11/24 07:37 levothyroxine sodium Allergy Mild RASH WITH Verified 06/11/24 07:37 [LEVOTHYROXINE SODIUM] GENERIC MED nitrofurantoin Allergy Mild RASH Verified 06/11/24 07:37 [NITROFURANTOIN] Penicillins [PENICILLINS] Allergy Mild RASH Verified 06/11/24 07:37 sulfamethoxazole Allergy Mild rash Verified 06/11/24 07:37 [From BACTRIM] trimethoprim [From BACTRIM] Allergy Mild rash Verified 06/11/24 07:37 dulaglutide [From Trulicity] AdvReac Unknown Rash Verified 06/11/24 07:37 ALL GENERIC MEDS Allergy Mild Rash Uncoded 06/11/24 07:37 SHRIMP Allergy Unknown Unknown Uncoded 06/11/24 07:37 Review of Systems Review of Systems: Pertinent positives and negatives as stated in HPI [facility] Past Medical History Medical History Diabetes mellitus DM2 (diabetes mellitus, type 2) Pain of left thumb Right upper quadrant pain AC (acromioclavicular) arthritis Hypertension Elevated LFTs Osteoarthritis (arthritis due to wear and tear of joints) Physical exam Colon cancer screening Allergic reaction Back pain Right arm pain Vulvar irritation Encounter for annual routine gynecological examination Impacted cerumen of left ear Rash Lower back pain Abnormal laboratory test result Back pain Mild recurrent major depression Thyroid cancer Depression Anxiety Sacroiliac joint disease Lumbar spondylosis GERD without esophagitis Acquired hypothyroidism Benign essential hypertension Constipation Obesity (BMI 30-39.9) Dyslipidemia emt intermediate (current) use of insulin Diabetes type 2, uncontrolled Surgical History Status post right rotator cuff repair Hx of shoulder surgery History of liver biopsy History of esophagogastroduodenoscopy (EGD) Hx of colonoscopy History of cholecystectomy History of bladder surgery H/O thyroidectomy Family History Family History Father No problems noted. Mother Diabetes Sister Lung cancer Brother H/O heart surgery Diabetes Son Epilepsy Social History Social History Household Members: Significant Other Housing: Apartment Unable to assess alcohol history related to: Unknown Alcohol intake: never Patient Tobacco Use Status: Never used Tobacco e-Cigarette/Vaping Use: Never Used Second Hand Smoke Exposure: No Do you have a plan to hurt others: No Plan service: No Current occupational status: disabled Gender identity: Female Cognitive needs: Yes Hearing needs: No Vision needs: No Physical Exam Vital Signs: Vital Signs: Last Vital Signs Temp 97.6 F 06/11/24 07:43 Pulse 73 06/11/24 07:43 Resp 66 H 06/11/24 07:43 BP 151/59 H 06/11/24 07:43 Pulse Ox 98 06/11/24 07:43 O2 Del Method Room Air 06/11/24 07:43 BMI result Body Mass Index 40.9 VITAL SIGNS: Reviewed. GENERAL: Well developed, well nourished, in no acute distress. HEAD: Normocephalic/atraumatic EYES: PERRLA, EOMI EARS: Ext canals without abnormality NOSE: Nares patent bilateral OROPHARYNX: no oral lesions noted, posterior pharynx clear NECK: Supple, no adenopathy LUNGS: Normal breath sounds. No adventitious sounds or accessory muscle use. SpO2<98> CARDIOVASCULAR: Regular rate and rhythm without noted murmurs ABDOMEN: Soft, non-tender, non-distended with bowel sounds. MUSCULOSKELETAL: No tenderness, deformities, or effusions noted on gross inspection. EXTREMITIES: No cyanosis, clubbing or edema. BILATERAL KNEES: No gross deformity, trace effusion, no erythema/induration, good palpable pulses distal at DP/PT and symmetric, capillary refill is less than 3 seconds. SKIN: Inspection of the skin reveals no rashes NEUROLOGIC: Alert and oriented x 4. Strength and sensation to light touch were grossly intact x 4. Medical Decision Making Medical Decision Making [facility] Narrative: 68-year-old female with history and clinical presentation, DD DX: No evidence to suggest gout/pseudogout/septic arthritis, no evidence to suggest fracture/dislocation, suspect underlying osteoarthritis and will provide patient with more aggressive regimen in treating the osteoarthritis and recommend follow-up with primary care doctor for referral to physical therapy and possible sports Medicine for knee injections as indicated. I reviewed the x-rays that were done outpatient which include shoulder x-ray as well as bilateral knee x-rays on 05/17/2024 and there is only evidence of osteoarthritis. Patient provided with combination analgesics as well as compression with Jose wrap and will be discharged with instructions to purchase [id number] knee sleeves for easier compression of bilateral knees. Differential Diagnosis Differential Diagnoses: The differential diagnosis associated with the presentation includes See above Admission/Observation Consideration of admission/observation: Escalation of care including admission/observation considered Patient does not meet inpatient level of care. Lab Data Labs: Lab Results 06/11/24 Range/Units 07:47 POC Glucose 101 (60-115) mg/dL Radiology Impression Discussion of test interpretation with radiology: I have reviewed the radiologist's reading. Radiologist Impression: See above External Record Review External record reviewed: Prior outpatient radiology and Outside ED record Discharge Plan Discharge Clinical Impression: Chronic pain of both knees, Osteoarthritis Patient Disposition: Home, Self-Care Instructions: Osteoarthritis (ED), Knee Pain (ED) Additional Instructions: Tylenol 1000 mg, orally, every 6 hours as needed for pain control. Do not exceed 4000 mg within 24 hours. Ibuprofen 400 mg, orally with milk or food, every 6 hours as needed for pain control. I recommend that you take this with the Tylenol for improved symptom relief. Recommend [id number] compression sleeves for both knees to help with pain and swelling. Follow-up with your primary care doctor and discuss a referral to physical therapy and possible referral to sports Medicine for knee injections if indicated. Do not hesitate to return to the emergency room for any worsening redness/swelling or fever/chills. Prescriptions: No Action hydrocortisone [Anti-Itch (HC)] 1 % cream 1 appl topical BID PRN (Reason: skin irritation) 14 Days Qty: 28.35 1RF (DME) lancets [FreeStyle Lancets] 28 gauge misc See Rx Instructions .ROUTE .MEDSUPPLY Qty: 300 6RF Rx Instructions: 3 times aday Aquaphor Healing 41 % ointment 1 appl topical DAILY PRN (Reason: dry skin) 14 Days Qty: 20 0RF (DME) humidifiers Misc See Rx Instructions .Route Qty: 1 0RF Rx Instructions: As directed (DME) disposable gloves [Biobrane Gloves Large] Misc See Rx Instructions .Route Qty: 100 6RF Rx Instructions: As directed (DME) adult diapers large See Rx Instructions .Route .MEDSUPPLY Qty: 240 11RF Rx Instructions: As directed (DME) underpads [Bed Underpads] Pad See Rx Instructions .Route Qty: 150 11RF Rx Instructions: Use 1 to 3 once a day prn (DME) wipes See Rx Instructions .Route .MEDSUPPLY Qty: 200 11RF Rx Instructions: As directed (DME) FreeStyle Carley 2 Sensor Kit See Rx Instructions .Route Qty: 2 11RF Rx Instructions: As directed change every 14 days (DME) FreeStyle Carley 2 [place] Misc See Rx Instructions .Route Qty: 1 0RF Rx Instructions: As directed naproxen 500 mg tablet 500 mg PO BID PRN (Reason: pain) 10 Days Qty: 20 0RF FreeStyle Lite Strips Strip 1 strip miscellaneous TID 90 Days Qty: 300 11RF hydrochlorothiazide 25 mg tablet 25 mg PO DAILY 90 Days Qty: 90 4RF (DME) powerseat lift chair See Rx Instructions .Route .MEDSUPPLY Qty: 1 0RF Rx Instructions: As directed lidocaine 5 % adhesive patch,medicated 1 patch topical DAILY Qty: 15 0RF Rx Instructions: leave on most painful area for up to 12 hrs (DME) cane Device See Rx Instructions .Route Qty: 1 0RF Rx Instructions: As directed (DME) shower head See Rx Instructions .Route .MEDSUPPLY Qty: 1 0RF Rx Instructions: As directed (DME) toilet seat elevator See Rx Instructions .Route .MEDSUPPLY Qty: 1 0RF Rx Instructions: As directed (DME) air conditioner See Rx Instructions .Route .MEDSUPPLY Qty: 1 0RF Rx Instructions: As directed levothyroxine [Synthroid] 150 mcg tablet 150 mcg PO DAILY 90 Days Qty: 90 1RF meloxicam 15 mg tablet 15 mg PO DAILY 90 Days Qty: 90 0RF montelukast 10 mg tablet 10 mg PO DAILY 30 Days Qty: 30 3RF pen needle, diabetic [BD Ultra-Fine Aarti Pen Needle] 32 gauge x 5/32 needle 1 ea subcut DAILY Qty: 30 11RF insulin glargine [Lantus Solostar U-100 Insulin] 100 unit/mL (3 mL) insulin pen 16 unit subcut DAILY 30 Days Qty: 4.8 1RF diclofenac sodium 1 % gel 2 g topical QID 30 Days Qty: 100 4RF Rx Instructions: apply to single elbow, wrist or hand; for hand includes palm/fingers/back of hand losartan 50 mg tablet 50 mg PO DAILY 90 Days Qty: 90 1RF acetaminophen [Tylenol Extra Strength] 500 mg tablet 500 mg PO Q6H PRN (Reason: fever or pain) 30 Days Qty: 120 2RF (DME) bedside commode Kit See Rx Instructions .Route Qty: 1 0RF Rx Instructions: As directed hydrocortisone [Anti-Itch (HC)] 1 % cream 1 appl topical BID PRN (Reason: skin irritation) 14 Days Qty: 28.4 0RF diphenhydramine HCl [Banophen] 25 mg capsule 25 mg PO BEDTIME PRN (Reason: allergic reaction) 30 Days Qty: 20 2RF lidocaine [Lidoderm] 5 % adhesive patch,medicated 1 patch topical DAILY MDD remove after 12 hours PRN (Reason: pain) Qty: 30 0RF Rx Instructions: leave on most painful area for up to 12 hrs cyclobenzaprine 5 mg tablet 5 mg PO TID PRN (Reason: muscle spasm) Qty: 10 0RF silver sulfadiazine [Silvadene] 1 % cream 1 appl topical DAILY Qty: 50 0RF Rx Instructions: apply a 1.5 mm thickness (DME) blood-glucose meter [FreeStyle Lite Meter] Kit See Rx Instructions .Route Qty: 1 0RF Rx Instructions: As directed Debrox 6.5 % drops 5 drp otic (ears) DAILY 4 Days Qty: 15 0RF atorvastatin 80 mg tablet 80 mg PO BEDTIME 90 Days Qty: 90 1RF escitalopram oxalate 10 mg tablet 10 mg PO DAILY clobetasol 0.05 % ointment 1 appl topical DAILY Rx Instructions: Use daily for 2 weeks, then every other day for 2 wks, then twice a week azelastine 137 mcg (0.1 %) aerosol,spray 1 spray intranasal BID betamethasone valerate 0.1 % cream 1 appl topical BID ketotifen fumarate 0.025 % (0.035 %) drops 0 drp ophthalmic (eye) tacrolimus 0.1 % ointment topical triamcinolone acetonide 0.025 % cream topical ramelteon 8 mg tablet 8 mg PO DAILY Myrbetriq 50 mg tablet extended release 24 hr 50 mg PO DAILY Trulance 3 mg tablet 3 mg PO DAILY Qty: 30 6RF dicyclomine 20 mg tablet 20 mg PO TID 30 Days Qty: 90 1RF docusate sodium 100 mg capsule 100 mg PO DAILY Qty: 30 6RF sodium,potassium,mag sulfates [Suprep Bowel Prep Kit] 17.5-3.13-1.6 gram recon soln 480 ml PO .COMPLEX Qty: 354 0RF Rx Instructions: 480 mL orally; bisacodyl [Dulcolax (bisacodyl)] 5 mg tablet,delayed release (DR/EC) See Rx Instructions PO BEDTIME 2 Days Qty: 8 0RF Rx Instructions: Take 2 tabs twie a day 2 days before procedure and 2 tabs am of procedure orally bedtime; Trulicity 1.5 mg/0.5 mL pen injector 1.5 mg subcut QWEEK Qty: 2 5RF metformin 500 mg tablet 1,000 mg PO BID Qty: 360 3RF (DME) FreeStyle Lite Strips Strip See Rx Instructions .Route Qty: 100 6RF Rx Instructions: As directed tests 4X/day omeprazole 20 mg capsule,delayed release(DR/EC) 20 mg PO DAILY 90 Days Qty: 90 0RF tramadol 50 mg tablet 50 mg PO BID PRN (Reason: pain) Qty: 10 0RF Referrals: Yael Alex MD [Primary Care Provider] - Print Language: Surinamese
--- NOTE | 2024-06-11 07:59 | PC.NURSE ---
biba from home d/t diabetic emergency pt checked POC this am = 80mg/dL. upon EMS arrival - pt c/o bilateral knee pain. denies recent injury. hx arthritis. upon ED arrival - a&ox4. vss and up to date. POC = 101mg/dL. pt reports 9/10 bilateral knee pain d/t previous fall in [place] x 4 weeks ago. pt reports being seen at ED in in [place] as well as walk in in [place]. scans negative. pt seen by ED provider. plan of care ongoing. call mckay placed within reach.
[2024-06-11 08:10] VITALS: BP 147/56; PULSE 65; RESP 16; O2SAT 97
[2024-06-11 08:16] VITALS: BP 147/56; PULSE 65; RESP 16; TEMP 36.4; O2SAT 97
[2024-06-11] MEDS: Acetaminophen 325 MG TABLET 975 MG PO (08:36)
[2024-06-11] MEDS: Ibuprofen 400 MG TABLET PO (08:36)
--- NOTE | 2024-06-11 08:38 | PC.NURSE ---
pt medicated per provider order.
== END 2024-06-11 08:44 | disposition home or self-care (01) ==
PROVIDERS: Emergency Provider Student in an Organized Health Care Education/Training Program; PCP Internal Medicine
DX: M17.0 Bilateral primary osteoarthritis of knee (principal); M25.562 Pain in left knee; M25.561 Pain in right knee; E11.9 Type 2 diabetes mellitus without complications; I10 Essential (primary) hypertension; Z79.4 Long term (current) use of insulin; Z79.899 Other long term (current) drug therapy
CPT/HCPCS: 82947; 99283; 99284

== ENCOUNTER 2024-07-08 09:18 | Outpatient (AMB) | payer OTHER, SELFPAY ==
--- NOTE | 2024-07-08 09:30 | MHC.OFFVIS ---
Intake Visit Reasons: Ov - Left Shoulder Pain - Last Inj 10/24/23 Intake Note: Crystal is a 68 year old right hand dominant female who presents today for a follow up of her Left Shoulder pain. Last injection administered on 10/24/23. Patient reports that the injection was helpful and she would like to repeat injection today. HX of Right RTC Repair 10/10/21 Allergies enalapril [ENALAPRIL] Allergy (Intermediate, Verified 06/11/24 07:37) Cough cephalexin [From KEFLEX] Allergy (Mild, Verified 06/11/24 07:37) rash ciprofloxacin [CIPROFLOXACIN] Allergy (Mild, Verified 06/11/24 07:37) HIVES,RASH levothyroxine sodium [LEVOTHYROXINE SODIUM] Allergy (Mild, Verified 06/11/24 07:37) RASH WITH GENERIC MED nitrofurantoin [NITROFURANTOIN] Allergy (Mild, Verified 06/11/24 07:37) RASH Penicillins [PENICILLINS] Allergy (Mild, Verified 06/11/24 07:37) RASH sulfamethoxazole [From BACTRIM] Allergy (Mild, Verified 06/11/24 07:37) rash trimethoprim [From BACTRIM] Allergy (Mild, Verified 06/11/24 07:37) rash dulaglutide [From Trulicity] Adverse Reaction (Unknown, Verified 06/11/24 07:37) Rash ALL GENERIC MEDS Allergy (Mild, Uncoded 06/11/24 07:37) Rash SHRIMP Allergy (Unknown, Uncoded 06/11/24 07:37) Unknown HPI HPI Ov - Left Shoulder Pain - Last Inj 10/24/23: Details: Crystal is a 68 year old right hand dominant female who presents today for a follow up of her right Shoulder pain. She fell 2 months ago while in [place] and has been unable to return to her normal level of activity. She has pain at night and pain with overhead lifting. HX of Right RTC Repair 10/10/21 [facility] Medical History Diabetes mellitus DM2 (diabetes mellitus, type 2) Pain of left thumb Right upper quadrant pain AC (acromioclavicular) arthritis Hypertension Elevated LFTs Osteoarthritis (arthritis due to wear and tear of joints) Physical exam Colon cancer screening Allergic reaction Back pain Right arm pain Vulvar irritation Encounter for annual routine gynecological examination Impacted cerumen of left ear Rash Lower back pain Abnormal laboratory test result Back pain Mild recurrent major depression Thyroid cancer Depression Anxiety Sacroiliac joint disease Lumbar spondylosis GERD without esophagitis Acquired hypothyroidism Benign essential hypertension Constipation Obesity (BMI 30-39.9) Dyslipidemia nursing home (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 Mother Diabetes Sister Lung cancer Brother H/O heart surgery Diabetes Son Epilepsy Social History Household Members: Significant Other Housing: Apartment Unable to assess alcohol history related to: Unknown Alcohol intake: never Patient Tobacco Use Status: Never used Tobacco e-Cigarette/Vaping Use: Never Used Second Hand Smoke Exposure: No service: No Current occupational status: disabled Gender identity: Female Cognitive needs: Yes Hearing needs: No Vision needs: No Female Reproductive History Menstrual Age of Menarche: 13 Physical Exam Extrem Other: 4/5 empty can with 90 degrees/130/35/L5 Office Procedures Joint Inj/Aspir; Non-Pain Clin Joint Injection/Drain Details: Injected 1 mL of Decadron and 3 mL 1% lidocaine and 3 mL of 0.25% Marcaine. Site was prepped using aseptic technique. Patient tolerated the procedure well. Shoulders, Hips, Knees, Shoulder Injection Large joint [id number]: Right Shoulder Coding Procedure code (CPT) selection complete Results Reviewed Results Reviewed: I personally reviewed relevant radiographs. Rotator cuff repair anchor present in right shoulder radiograph otherwise normal shoulder radiographs. 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 She states her sugars are controlled. (2) Rotator cuff tear, right: Code(s): M75.101 - Unspecified rotator cuff tear or rupture of right shoulder, not specified as traumatic Category: Medical Plan: Over 2 years status post right shoulder rotator cuff repair. She fell about 2 months ago and is continuing to have pain. I injected her right shoulder. I informed her of the hyperglycemic effects of steroids. I also recommend physical therapy and a prescription for meloxicam was sent to her pharmacy. Coding Level of Care Code Est Pt Level 4 (65856) Diagnoses Controlled type 2 diabetes mellitus with insulin therapy E11.9; Z79.4 Rotator cuff tear, right M75.101 CPT Codes Shoulders, Hips, Knees, - Shoulder Injection Large joint : Right Shoulder ([id number])
== END 2024-07-08 11:56 | disposition home or self-care (01) ==
PROVIDERS: PCP Internal Medicine; Visit Provider Orthopaedic Surgery
DX: M75.101 Unspecified rotator cuff tear or rupture of right shoulder, not specified as traumatic (principal); E11.9 Type 2 diabetes mellitus without complications; Z79.4 Long term (current) use of insulin
CPT/HCPCS: 20610; 99214

== ENCOUNTER → 2024-07-08 09:18 | Outpatient (BNVA) | payer OTHER, SELFPAY | PROVIDERS: PCP Internal Medicine; Visit Provider Orthopaedic Surgery | DX: M75.101 Unspecified rotator cuff tear or rupture of right shoulder, not specified as traumatic (principal); M25.511 Pain in right shoulder; E11.9 Type 2 diabetes mellitus without complications; Z79.4 Long term (current) use of insulin; Z91.81 History of falling | CPT/HCPCS: 20610; 99212; J0665; J1100; J2003 ==

== ENCOUNTER 2024-07-09 09:09 | Outpatient (REF) | payer OTHER, SELFPAY ==
[2024-07-09 10:42] LABS: Estimated Average Glucose 160 mg/dL; Hemoglobin A1C 174.1834 umol/L; Hemoglobin A1c % 7.2 % (<6.0); Total Hemoglobin (HGBA1C) 3148.0197 umol/L
[2024-07-09 11:26] LABS: Anion Gap 13 (12-20); Thyroid Stimulating Hormone 0.13 uIU/mL (0.32-4.0)
[2024-07-09 11:31] LABS: Alanine Aminotransferase 35 U/L (0-31); Alkaline Phosphatase 91 U/L (39-117); Aspartate Amino Transferase 29 U/L (5-31); Bilirubin Total 0.4 mg/dL (0.0-1.0); Blood Urea Nitrogen 27 mg/dL (9-16); Calcium 9.4 mg/dL (8.4-10.2); Carbon Dioxide 26 mmol/L (22-29); Chloride 104 mmol/L (96-108); Cholesterol 173 mg/dL (<200); Estimated Glomerular Filt Rate > 60; Glucose Fasting 159 mg/dL (60-99); HDL Cholesterol 55 mg/dL (>40); LDL Cholesterol Calculated 104 mg/dL (<100); Sodium 139 mmol/L (135-145); Total Protein 7.7 g/dL (6.5-8.0); Triglycerides 71 mg/dL (<150)
[2024-07-09 11:34] LABS: Creatinine Urine 80.69 mg/dL; Microalbum/Creatinine Ratio Ur 18.5 ug/mg cr (<30)
== END 2024-07-09 09:10 | disposition home or self-care (01) ==
LOC: HO.LAB 09:09
PROVIDERS: Physician Assistant; PCP Internal Medicine; Visit Provider Internal Medicine
DX: Z79.4 Long term (current) use of insulin (principal); E11.9 Type 2 diabetes mellitus without complications; C73 Malignant neoplasm of thyroid gland; E78.5 Hyperlipidemia, unspecified
CPT/HCPCS: 36415; 80053; 80061; 82043; 82570; 83036; 84443

== ENCOUNTER 2024-07-13 09:44 | Outpatient (AMB) | payer OTHER, SELFPAY ==
--- NOTE | 2024-07-13 10:07 | MHC.PC.OV ---
Vital Signs 07/13/24 10:12 Height 5 ft 4 in Weight 236 lb 1.588 oz BMI 40.5 BP 160/90 H Blood Pressure Location Lt brachial Position Sitting Intake Visit Reasons: dm Intake Note: Patient here for a follow up DM Title Insurance Examiner Required: No Accompanied by: INDUSTRIAL G[employer] SERVICER Allergies enalapril [ENALAPRIL] Allergy (Intermediate, Verified 07/13/24 10:45) Cough cephalexin [From KEFLEX] Allergy (Mild, Verified 07/13/24 10:45) rash ciprofloxacin [CIPROFLOXACIN] Allergy (Mild, Verified 07/13/24 10:45) HIVES,RASH levothyroxine sodium [LEVOTHYROXINE SODIUM] Allergy (Mild, Verified 07/13/24 10:45) RASH WITH GENERIC MED nitrofurantoin [NITROFURANTOIN] Allergy (Mild, Verified 07/13/24 10:45) RASH Penicillins [PENICILLINS] Allergy (Mild, Verified 07/13/24 10:45) RASH sulfamethoxazole [From BACTRIM] Allergy (Mild, Verified 07/13/24 10:45) rash trimethoprim [From BACTRIM] Allergy (Mild, Verified 07/13/24 10:45) rash dulaglutide [From Trulicity] Adverse Reaction (Unknown, Verified 07/13/24 10:45) Rash ALL GENERIC MEDS Allergy (Mild, Uncoded 07/13/24 10:45) Rash SHRIMP Allergy (Unknown, Uncoded 07/13/24 10:45) Unknown Medication List - Last Reconciled 07/13/24 by Yael Talbot MD acetaminophen (Tylenol Extra Strength) 500 mg PO Q6H PRN 30 days [adult diapers As directed] [air conditioner As directed] atorvastatin 80 mg PO BEDTIME 90 days azelastine 1 spray intranasal BID betamethasone valerate 0.1% 1 appl topical BID bisacodyl (Dulcolax (bisacodyl)) Take 2 tabs twie a day 2 days before procedure and 2 tabs am of procedure orally bedtime; 2 days blood sugar diagnostic (FreeStyle Lite Strips) As directed tests 4X/day blood sugar diagnostic (FreeStyle Lite Strips) 1 strip miscellaneous TID 90 days blood-glucose meter (FreeStyle Lite Meter kit) As directed cane As directed carbamide peroxide 6.5% (Debrox) 5 drps otic (ears) DAILY 4 days clobetasol 0.05% 1 appl topical DAILY commode (bedside commode) As directed cyclobenzaprine 5 mg PO TID PRN diclofenac sodium 1% 2 grams topical QID 1 month dicyclomine 20 mg PO TID 30 days diphenhydramine HCl (Banophen) 25 mg PO BEDTIME PRN 30 days disposable gloves (Biobrane Gloves Large) As directed docusate sodium 100 mg PO DAILY dulaglutide (Trulicity) 1.5 mg (0.5 mL) subcut QWEEK escitalopram oxalate 10 mg PO DAILY flash glucose scanning reader ([employer] Carley 2 Stroud) As directed flash glucose sensor (SnapYetiyle Carley 2 Sensor kit) As directed change every 14 days humidifiers As directed hydrochlorothiazide 25 mg PO DAILY 90 days NS hydrocortisone 1% (Anti-Itch (hydrocortisone)) 1 appl topical BID PRN 14 days hydrocortisone 1% (Anti-Itch (hydrocortisone)) 1 appl topical BID PRN 2 weeks ibuprofen 400 mg PO Q8H PRN 30 days insulin glargine (Lantus Solostar U-100 Insulin) 16 units (0.16 mL) subcut DAILY 30 days ketotifen fumarate 0.025%(0.035%) 0 drps ophthalmic (eye) lancets (FreeStyle Lancets) 3 times aday levothyroxine (Synthroid) 137 mcg PO DAILY 90 days lidocaine 5% (Lidoderm) 1 patch topical DAILY PRN MDD remove after 12 hours lidocaine 5% 1 patch topical DAILY losartan 50 mg PO DAILY 90 days meloxicam 15 mg PO DAILY 90 days meloxicam 15 mg PO DAILY metformin 1,000 mg (2 x 500 mg) PO BID mirabegron ER (Myrbetriq) 50 mg PO DAILY montelukast 10 mg PO DAILY 30 days naproxen 500 mg PO BID PRN 10 days omeprazole 20 mg PO DAILY 90 days pen needle, diabetic (BD Ultra-Fine Aarti Pen Needle) 1 ea subcut DAILY plecanatide (Trulance) 3 mg PO DAILY [powerseat lift chair As directed] ramelteon 8 mg PO DAILY [shower head As directed] silver sulfadiazine 1% (Silvadene) 1 appl topical DAILY sodium,potassium,mag sulfates 17.5-3.13-1.6 gram (Suprep Bowel Prep Kit) 480 mL orally; tacrolimus 0.1% topical [toilet seat elevator As directed] tramadol 50 mg PO BID PRN triamcinolone acetonide 0.025% appl topical underpads (Bed Underpads) Use 1 to 3 once a day prn white petrolatum 41% (Aquaphor Healing) 1 appl topical DAILY PRN 2 weeks [wipes As directed] Tobacco use date assessed: 10/07/23 Fall risk assessment: No Falls in past year Last assessed Fall Risk: 07/13/24 Dental Screening Dental Screen Date: 05/24/24 Did you have a dental visit in the last 12 months?: No Did you have a dental problem in the last 6 months where you did not have access to dental care?: No Was dental information given to patient?: Patient has dentist HPI HPI Comments History of Present Illness Details The patient is a 68-year-old female presenting with a history of several chronic conditions, requiring medication evaluation and management. She reports ongoing issues with hypertension, managed previously with hydrochlorothiazide 25 mg, and Losartan, now recommended to increase from 50 mg to 100 mg. She struggles with hypothyroidism, having sustained on 137 mcg of levothyroxine for some time. Recent thyroid tests were abnormal and she will discuss dose adjustment with her Chief Librarian Branch Or Department. For her Type 2 Diabetes Mellitus, she is currently on Metformin and Trulicity. She has constant diarrhea and this is why I will discontinue docusate. GERD symptoms are managed with Omeprazole. Dyslipidemia is managed with Atorvastatin, although a recent LDL reading of 101 mg/dL resulted in the addition of Zetia to effectively lower it to a target of 70 mg/dL. She denies having experienced an allergic reaction to these medications. The patient also experiences urinary incontinence, for which she takes Myrbetrix. [facility] Medical History (Updated 07/13/24 @ 11:01 by Yael Talbot MD) Diabetes mellitus DM2 (diabetes mellitus, type 2) Pain of left thumb Right upper quadrant pain AC (acromioclavicular) arthritis Hypertension Elevated LFTs Osteoarthritis (arthritis due to wear and tear of joints) Physical exam Colon cancer screening Allergic reaction Back pain Right arm pain Vulvar irritation Encounter for annual routine gynecological examination Impacted cerumen of left ear Rash Lower back pain Abnormal laboratory test result Back pain Mild recurrent major depression Thyroid cancer Depression Anxiety Sacroiliac joint disease Lumbar spondylosis GERD without esophagitis Acquired hypothyroidism Benign essential hypertension Constipation Obesity (BMI 30-39.9) Dyslipidemia lobsterman (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 Mother Diabetes Sister Lung cancer Brother H/O heart surgery Diabetes Son Epilepsy Social History Household Members: Significant Other Housing: Apartment Unable to assess alcohol history related to: Unknown Alcohol intake: never Patient Tobacco Use Status: Never used Tobacco e-Cigarette/Vaping Use: Never Used Second Hand Smoke Exposure: No service: No Current occupational status: disabled Gender identity: Female Cognitive needs: Yes Hearing needs: No Vision needs: No Female Reproductive History Menstrual Age of Menarche: 13 Questionnaire Thrive Questionnaire Date Thrive assessed: 10/07/23 DENIS-7 AMB Questionnaire DENIS-7 Date DENIS - 7 assessed: 10/07/23 Source: Developed by Drs. Leland Gregorio, Elda Quinteros, Lamin Pierre and colleagues, with an educational edilberto from [employer]. Review of Systems Const Details: - General: Reports no recent weight changes. - Respiratory: Denies respiratory symptoms. - Gastrointestinal: Reports diarrhea. - Genitourinary: Reports urinary incontinence. - Musculoskeletal: Denies musculoskeletal pain. - Neurological: Denies neurological symptoms. - Dermatological: Reports occasional hives. Physical exam (Primary Care) Vital Signs: Last Vital Signs BP 160/90 H 07/13/24 10:12 BMI result Body Mass Index 40.5 BMI Assessment/Plan discussion: High BMI High, discussed plan: lifestyle, weight reduction, dietary and physical activity Tobacco/Smoking Status: Tobacco use Status Tobacco use date assessed 10/07/23 07/13/24 10:09 Patient Tobacco Use Status Never used Tobacco 07/13/24 10:09 e-Cigarette/Vaping Use Never Used 07/13/24 10:09 Thrive Assessment: Date of Thrive Assessment Date Thrive assessed 10/07/23 07/13/24 10:09 Const Other: General: No confusion Orientation/Consciousness: Patient oriented x3 and No confusion Head: Normal to inspection, Yes normocephalic and Yes atraumatic Ears: External ears normal Nose: Normal external nose present and No nasal discharge present Face and Sinus: Sinuses nontender Mouth: Lip normal Eyes: Appearance normal, both eyes and all related structures Eyelids: Eyelids normal Conjunctivae: Conjunctivae normal Neck: Normal visual inspection and Yes supple Respiratory: Normal respiratory effort, clear to auscultation bilaterally Cardiovascular: No jugular venous distension, regular rate, regular rhythm, S1 normal heart sound present and S2 normal heart sound present GI: Normal to inspection, Soft to palpation and nontender, normal bowel sounds Skin: No rashes or lesions noted, patient reports hives and allergy Neurology: Patient oriented x3, no focal motor deficits and No confusion Extremities: Full ROM Psychology: Grossly normal Office Procedures Flu Questionnaire Does the patient have a severe egg allergy?: No Immunizations Fluarix Triv [id number] (PF) 45 mcg (15 mcg x 3)/0.5 mL IM syringe Performing Provider: Yael Talbot MD [facility] [place] [facility] Documented (not given) by: DOM Duvall on 07/13/24 10:16 Reason Not Given: Patient Refused Coding Level of Care Code Est Pt Level 4 (03150) Complex EM visit Add On G2211 Diagnoses Controlled type 2 diabetes mellitus with insulin therapy E11.9; Z79.4 Urge urinary incontinence N39.41 Chronic GERD K21.9 Thyroid cancer C73 Benign essential hypertension I10 Dyslipidemia E78.5 Time Spent (min) 24 Assessment & Plan Assessment & Plan (1) Controlled type 2 diabetes mellitus with insulin therapy: Code(s): E11.9 - Type 2 diabetes mellitus without complications; Z79.4 - lobsterman (current) use of insulin Category: Medical (2) Urge urinary incontinence: Code(s): N39.41 - Urge incontinence Category: Medical (3) Chronic GERD: Code(s): K21.9 - Gastro-esophageal reflux disease without esophagitis Category: Medical (4) Thyroid cancer: Comment: w/thyroidectomy Code(s): C73 - Malignant neoplasm of thyroid gland Category: Medical (5) Benign essential hypertension: Code(s): I10 - Essential (primary) hypertension Category: Medical (6) Dyslipidemia: Code(s): E78.5 - Hyperlipidemia, unspecified Category: Medical Plan - Increase Losartan to 100 mg to improve blood pressure control, with follow-up in three weeks. - Maintain current levothyroxine dosage with a planned follow-up with her heavy equipment operating engineer. - Introduce Zetia alongside Atorvastatin for improved LDL control. - Reassess diabetic management with current medications. - Continue Omeprazole and Myrbetrix as prescribed. - Prescribe a humidifier for symptom relief. - Discussed the potential need for an appropriate cream for rash or hives described by the patient. Patient was informed and verbally consented to the use of an ambient scribe for clinic note documentation during this visit. I discussed with the patient her current management of hypertension, hypothyroidism, diabetes, dyslipidemia, and GERD. I explained the rationale for increasing the Losartan dosage based on her blood pressure readings, alongside reinforcing the necessity of Zetia to achieve the desired LDL levels. We covered her thyroid test results; no major changes were needed other than closely monitoring her symptoms. I confirmed her understanding of the current regimen and the importance of follow-up appointments. She agreed to the proposed treatment plan. Orders: Orders Influenza [id number] Immunization Today Z23 - Encounter for immunization Medications: New losartan 100 mg PO DAILY 90 tabs 1RF 90 days [pillow] As directed 1 ea 0RF M54.2 - Cervicalgia ezetimibe 10 mg PO DAILY 90 tabs 1RF 90 days Refilled atorvastatin 80 mg PO BEDTIME 90 tabs 1RF 90 days humidifiers As directed 1 ea 0RF T78.40XA - Allergy, unspecified, initial encounter Discontinued docusate sodium Discontinued Reason: Patient Completed Course 100 mg PO DAILY 30 caps 6RF losartan Discontinued Reason: Patient Completed Course 50 mg PO DAILY 90 days 90 tabs 1RF I10 - Essential (primary) hypertension Patient Instructions: - Begin taking 100 mg of Losartan as directed. - Continue taking levothyroxine and follow up with the heavy equipment operating engineer as needed. - Add Zetia for cholesterol management. - Continue monitoring for any skin reactions, use prescribed creams. - Use the humidifier to alleviate dryness symptoms. - Follow-up appointment in three weeks to assess blood pressure. - Contact the office if any adverse reactions or new symptoms occur.
[2024-07-13 10:12] VITALS: BP 160/90; BMI 40.5
== END 2024-07-13 11:02 | disposition home or self-care (01) ==
PROVIDERS: PCP Internal Medicine; Visit Provider Internal Medicine
DX: E11.69 Type 2 diabetes mellitus with other specified complication (principal); Z79.4 Long term (current) use of insulin; C73 Malignant neoplasm of thyroid gland; N39.41 Urge incontinence; K21.9 Gastro-esophageal reflux disease without esophagitis; I10 Essential (primary) hypertension; E78.5 Hyperlipidemia, unspecified; Z23 Encounter for immunization

== ENCOUNTER → 2024-07-13 09:44 | Outpatient (BNVA) | payer OTHER, SELFPAY | PROVIDERS: PCP Internal Medicine; Visit Provider Internal Medicine | DX: E11.9 Type 2 diabetes mellitus without complications (principal); K21.9 Gastro-esophageal reflux disease without esophagitis; E78.5 Hyperlipidemia, unspecified; N39.41 Urge incontinence; C73 Malignant neoplasm of thyroid gland; I10 Essential (primary) hypertension; M54.2 Cervicalgia; T78.40XA Allergy, unspecified, initial encounter; X58.XXXA Exposure to other specified factors, initial encounter; Y93.9 Activity, unspecified; Y92.9 Unspecified place or not applicable; Y99.9 Unspecified external cause status; Z79.84 Long term (current) use of oral hypoglycemic drugs; Z79.4 Long term (current) use of insulin; Z28.21 Immunization not carried out because of patient refusal; Z79.899 Other long term (current) drug therapy | CPT/HCPCS: 99212 ==

== ENCOUNTER 2024-08-10 07:52 | Outpatient (REF) | payer OTHER, SELFPAY | END 2024-08-10 07:53 | disposition home or self-care (01) | LOC: HO.HOSX 07:52 | PROVIDERS: Visit Provider Physician Assistant | DX: Z13.89 Encounter for screening for other disorder (principal) ==

== ENCOUNTER 2024-08-16 09:09 | Outpatient (REF) | payer OTHER, SELFPAY | END 2024-08-16 09:10 | disposition home or self-care (01) | LOC: HO.HOSX 09:09 | PROVIDERS: Visit Provider Physician Assistant | DX: Z13.89 Encounter for screening for other disorder (principal) ==

== ENCOUNTER 2024-08-17 14:26 | Outpatient (REF) | payer OTHER, SELFPAY | END 2024-08-17 14:27 | disposition home or self-care (01) | LOC: HO.HOSX 14:26 | PROVIDERS: Visit Provider Physician Assistant | DX: Z13.89 Encounter for screening for other disorder (principal) ==

== ENCOUNTER 2024-08-25 09:22 | Outpatient (RCR) | payer OTHER, SELFPAY ==
--- NOTE | 2024-08-11 12:38 | MHC.PT.EP ---
[facility] [place] [facility] [place] [facility] [place] [facility] [address] Killian Koch [address] [phone] F: [phone] F: [phone] F: [phone] F: [phone] Physical Therapy Plan of Care Date of Evaluation: 08/11/24 Date of Surgery: Diagnosis: Rt AND Lt SHOULDER PAIN Assessment: 68 YO FEMALE REF TO PT FOR Rt SH PAIN AFTER SUSTAINING A FALL WHILE ON VACATION IN [place] IN APR 2024. SHE PRESENTS FOR HER PT EVAL WITH HER CONFERENCE SERVICES DIRECTOR (19 HRS/WK), AMB W A CANE IN Rt HAND. SHE IS RIGHT HAND DOMINANT AND NOTES SHE SPENDS HER DAYS SITTING AND WATCHING TV. THE Pt HAS A H/O Rt RTC REPAIR APPROX 2 YRS AGO. OBJECTIVELY, THE Pt HAS DECR POSTURAL AWARENESS, TIGHT ANT CHAIN/ PECT MM, DECR SH AROM , POST RC/ SCAP MM WEAKNESS, AND FLUCTUATING DISCOMFORT. CURRENTLY, THERE DOES NOT APPEAR TO BE ANY Rt SH INSTABILITY. WE DISCUSSED HAVING Pt ATTEND PT 1 x WK TO RE-INTO POSTURAL / RC EXER WELL INCR THE Pt'S ACTIVITY LEVEL/ HEP W HER CONFERENCE SERVICES DIRECTOR'S ASSIST/ SUPPORT. Frequency and Duration: The patient will be seen 1 x WK x 4 WKS Short Term Goals: IMPROVE Rt SH AROM AND IMPROVE ACTIVATION OF SCAPULAR MM/ RETRACTORS DECR Rt SH PAIN TO 2-3/10 Pt INDEP W SELF CORRECT POSTURE Compound Machine Operator Goals: Pt AND CONFERENCE SERVICES DIRECTOR INDEP W HEP AND POSTURAL CORRECTION Pt PARTICIPATE IN HER SELF PERSONAL CARE AND FUNCTIONAL MOB Treatment Plan: Modalities to reduce pain, spasms and effusion. Manual therapy to restore motion and function. Therapeutic exercise to improve strength and flexibility. Neuromuscular re-education for posture and balance. Therapeutic activities to return to functional activities of daily living. Electronically signed by: TARA BARTLETT,PT Please sign and return to therapist. Thank you for your referral.
--- NOTE | 2024-11-01 15:23 | MHC.PT.DC ---
[facility] [place] Office [place] Office [place] Office [address] Killian Koch [address] [phone] F: [phone] F: [phone] F: [phone] F: [phone] Physical Therapy Discharge Report Diagnosis: Rt AND Lt SHOULDER PAIN Date of Surgery: Date of Evaluation: 08/11/24 Date of Discharge: 11/01/24 Treatments to Date: 3 Cancellations to Date: 3 No Shows to Date: Discharge Status: Visit Non-compliance Discharge Summary: THE Pt DID NOT ATTEND THE LAST FEW SCHED APPTS- SHE HAS A HEP- SHE DID NOT MEET HER PT GOALS. D/C PER ATTENDANCE POLICY. Electronically signed by: TARA BARTLETT,PT Please sign and return to therapist. Thank you for your referral.
== END 2024-11-01 15:23 | disposition home or self-care (01) ==
LOC: HO.PT 09:22
PROVIDERS: PCP Internal Medicine; Visit Provider Internal Medicine
DX: Z98.890 Other specified postprocedural states (principal)
CPT/HCPCS: 97110; 97161

== ENCOUNTER 2024-09-20 09:43 | Outpatient (AMB) | payer OTHER, SELFPAY ==
[2024-09-20 09:45] VITALS: BP 102/78; PULSE 86; O2SAT 94; BMI 41.4
--- NOTE | 2024-09-20 09:45 | MHC.OFFVIS ---
Vital Signs 09/20/24 09:45 Height 5 ft 4 in Weight 241 lb 6.499 oz BMI 41.4 BP 102/78 Blood Pressure Location Rt brachial Position Sitting Pulse 86 Pulse Source Pulse Oximeter Pulse Oximetry (%) 94 Oxygen Delivery Method Room Air Intake Visit Reasons: T2DM Intake Note: Patient present today for Type 2 Diabetes Mellitus Last Diabetic eye exam: 05/2024 Last Podiatry Visit: Doesn't have one Random Glucose: 198 mg/dl HgA1C: 9.5% Police Reserves Commander Required: Yes Police Reserves Commander Language: Nail Specialist Services: Police Reserves Commander Present Police Reserves Commander Name: Ronal [id number] Information Interpreted: non-clinical & clinical Accompanied by: VERIFICATION ENGINEER Allergies enalapril [ENALAPRIL] Allergy (Intermediate, Verified 09/20/24 10:06) Cough cephalexin [From KEFLEX] Allergy (Mild, Verified 09/20/24 10:06) rash ciprofloxacin [CIPROFLOXACIN] Allergy (Mild, Verified 09/20/24 10:06) HIVES,RASH levothyroxine sodium [LEVOTHYROXINE SODIUM] Allergy (Mild, Verified 09/20/24 10:06) RASH WITH GENERIC MED nitrofurantoin [NITROFURANTOIN] Allergy (Mild, Verified 09/20/24 10:06) RASH Penicillins [PENICILLINS] Allergy (Mild, Verified 09/20/24 10:06) RASH sulfamethoxazole [From BACTRIM] Allergy (Mild, Verified 09/20/24 10:06) rash trimethoprim [From BACTRIM] Allergy (Mild, Verified 09/20/24 10:06) rash ALL GENERIC MEDS Allergy (Mild, Uncoded 09/20/24 10:06) Rash SHRIMP Allergy (Unknown, Uncoded 09/20/24 10:06) Unknown Medication List - Last Reconciled 09/20/24 by Radha Chavira PA-C acetaminophen (Tylenol Extra Strength) 500 mg PO Q6H PRN 30 days [adult diapers As directed] [air conditioner As directed] atorvastatin 80 mg PO BEDTIME 90 days azelastine 1 spray intranasal BID betamethasone valerate 0.1% 1 appl topical BID bisacodyl (Dulcolax (bisacodyl)) Take 2 tabs twie a day 2 days before procedure and 2 tabs am of procedure orally bedtime; 2 days blood sugar diagnostic (FreeStyle Lite Strips) As directed tests 4X/day blood sugar diagnostic (FreeStyle Lite Strips) 1 strip miscellaneous TID 90 days blood-glucose meter (FreeStyle Lite Meter kit) As directed cane As directed carbamide peroxide 6.5% (Debrox) 5 drps otic (ears) DAILY 4 days clobetasol 0.05% 1 appl topical DAILY commode (bedside commode) As directed cyclobenzaprine 5 mg PO TID PRN diclofenac sodium 1% 2 grams topical QID 1 month dicyclomine 20 mg PO TID 30 days diphenhydramine HCl (Banophen) 25 mg PO BEDTIME PRN 30 days disposable gloves (Biobrane Gloves Large) As directed escitalopram oxalate 10 mg PO DAILY ezetimibe 10 mg PO DAILY 90 days flash glucose scanning reader (FreeStyle Carley 2 [place]) As directed flash glucose sensor (FreeStyle Carley 2 Sensor kit) As directed change every 14 days humidifiers As directed hydrochlorothiazide 25 mg PO DAILY 90 days NS hydrocortisone 1% (Anti-Itch (hydrocortisone)) 1 appl topical BID PRN 14 days hydrocortisone 1% (Anti-Itch (hydrocortisone)) 1 appl topical BID PRN 2 weeks ibuprofen 400 mg PO Q8H PRN 30 days insulin glargine (Lantus Solostar U-100 Insulin) 16 units (0.16 mL) subcut DAILY 30 days ketotifen fumarate 0.025%(0.035%) 0 drps ophthalmic (eye) lancets (FreeStyle Lancets) 3 times aday levothyroxine (Synthroid) 137 mcg PO DAILY 90 days lidocaine 5% (Lidoderm) 1 patch topical DAILY PRN MDD remove after 12 hours lidocaine 5% 1 patch topical DAILY losartan 100 mg PO DAILY 90 days meloxicam 15 mg PO DAILY 90 days meloxicam 15 mg PO DAILY metformin 1,000 mg (2 x 500 mg) PO BID mirabegron ER (Myrbetriq) 50 mg PO DAILY montelukast 10 mg PO DAILY 30 days naproxen 500 mg PO BID PRN 10 days omeprazole 20 mg PO DAILY 90 days pen needle, diabetic (BD Ultra-Fine Aarti Pen Needle) 1 ea subcut DAILY [pillow As directed] plecanatide (Trulance) 3 mg PO DAILY [powerseat lift chair As directed] ramelteon 8 mg PO DAILY [shower head As directed] silver sulfadiazine 1% (Silvadene) 1 appl topical DAILY sodium,potassium,mag sulfates 17.5-3.13-1.6 gram (Suprep Bowel Prep Kit) 480 mL orally; tacrolimus 0.1% topical [toilet seat elevator As directed] tramadol 50 mg PO BID PRN triamcinolone acetonide 0.025% appl topical underpads (Bed Underpads) Use 1 to 3 once a day prn white petrolatum 41% (Aquaphor Healing) 1 appl topical DAILY PRN 2 weeks [wipes As directed] HPI HPI T2DM: Details: Patient is 68-year-old female who presents today for a follow-up regarding her diabetes. She has a significant past medical history of hypertension, hyperlipidemia, GERD, depression, anxiety, polyarthralgia , acquired hypothyroidism s/p papillary thyroid carcinoma and obesity. Phone [employer] sales and lending team member used today. Ronal [id number] -forgot to get labs done prior to today's appointment. Endo: DM-She was diagnosed with type 2 diabetes in 2012. Her A1c is 9.5. She is currently on Lantus 16 units metformin 1000 mg twice a day, Trulicity 1.5mg/week. She denies any hyper or hypoglycemic events. States that this regimen works very well for her. -She Intolerant of Jardiance due to uncontrollable urination and diarrhea. Adamantly refuses a CGM. She states that she has very sensitive skin and would be worried about allergic reaction. She does not want strep seems that she is happy to check her blood sugars a few times a day. She did not bring in her glucometer. States that she has not needed to correct any hypoglycemic events. States that if she would she would use candy She has an upcoming appointment with her historic sites supervisor in May. She states the designer keeps cancelling but she would like to see someone. She denies any difficulty feeling her feet. States that she does not have pain but her toenails are often thickened especially the right great toenail. CV: Blood pressure today in the office is 102/78 . She is on losartan 100 mg and hctz 25 mg. Cholesterol is controlled with atorvastatin 80 mg [facility] Medical History (Updated 09/20/24 @ 10:36 by Radha Chavira PA-C) Diabetes mellitus DM2 (diabetes mellitus, type 2) Pain of left thumb Right upper quadrant pain AC (acromioclavicular) arthritis Hypertension Elevated LFTs Osteoarthritis (arthritis due to wear and tear of joints) Physical exam Colon cancer screening Allergic reaction Back pain Right arm pain Vulvar irritation Encounter for annual routine gynecological examination Impacted cerumen of left ear Rash Lower back pain Abnormal laboratory test result Back pain Mild recurrent major depression Thyroid cancer Depression Anxiety Sacroiliac joint disease Lumbar spondylosis GERD without esophagitis Acquired hypothyroidism Benign essential hypertension Constipation Obesity (BMI 30-39.9) Dyslipidemia 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 Mother Diabetes Sister Lung cancer Brother H/O heart surgery Diabetes Son Epilepsy Social History Household Members: Significant Other Housing: Apartment Unable to assess alcohol history related to: Unknown Alcohol intake: never Patient Tobacco Use Status: Never used Tobacco e-Cigarette/Vaping Use: Never Used Second Hand Smoke Exposure: No service: No Current occupational status: disabled Gender identity: Female Cognitive needs: Yes Hearing needs: No Vision needs: No Female Reproductive History Menstrual Age of Menarche: 13 Physical Exam Vital Signs: Last Vital Signs Pulse 86 09/20/24 09:45 BP 102/78 09/20/24 09:45 Pulse Ox 94 09/20/24 09:45 Oxygen Delivery Method Room Air 09/20/24 09:45 BMI result Body Mass Index 41.4 Const Orientation/consciousness: patient oriented x3 Neck Neck: Yes no lymphadenopathy Thyroid: Thyroid normal Carotids: no bruits Resp Auscultation: clear to auscultation bilaterally Cardio Rate: regular rate Rhythm: regular rhythm Heart sounds: S1 normal heart sound present and S2 normal heart sound present Peripheral pulses: dorsalis pedis present Neuro General: patient oriented x3, gait normal and no focal motor deficits Extrem Other: Monofilament sensation intact bilaterally. Vibratory sensation intact bilaterally. Skin intact. General: Yes normal to inspection Results AMB Hemoglobin A1c AMB Hemoglobin A1c 9.5 % Last Edit by DOM Leigh on 09/20/24 10:20 Results Reviewed Results Reviewed: Laboratory Last Values Glucose (Clinic) 198 mg/dL (60-115) H 09/20/24 10:08 Laboratory Tests 07/09/24 09:38 Creatinine 0.74 Estimated GFR > 60 Fasting Glucose 159 H AST 29 ALT 35 H Triglycerides 71 Cholesterol 173 LDL Cholesterol, Calc 104 H HDL Cholesterol 55 Assessment & Plan Assessment & Plan (1) Uncontrolled type 2 diabetes mellitus with hyperglycemia, with long-term current use of insulin: Code(s): E11.65 - Type 2 diabetes mellitus with hyperglycemia; Z79.4 - senior care (current) use of insulin Category: Medical Plan: Offered her a sensor. I did show her the freestyle Carley and showed her how I would apply this. She declines. We will increase Trulicity to 3 mg weekly. Increase Lantus to 25 units daily. Continue with the metformin (2) Dyslipidemia: Code(s): E78.5 - Hyperlipidemia, unspecified Category: Medical Plan: Continue on Zetia (3) Essential hypertension: Code(s): I10 - Essential (primary) hypertension Category: Medical Plan: WNL. Continue current regimen Orders: Orders AMB Hemoglobin A1c Today E11.9 - Type 2 diabetes mellitus without complications, Z13.9 - Encounter for screening, unspecified, Z79.4 - computer terminal operator (current) use of insulin Medications: New glucose (Dex4 Glucose) until symptoms of low blood sugar are controlled 16 grams (4 x 4 gram) PO Q15M PRN 100 tabs 0RF hypoglycemia lancets (FreeStyle Lancets) use BID as directed to check blood glucose 100 ea 3RF dulaglutide (Trulicity) 3 mg (0.5 mL) subcut QWEEK 2 mL 6RF Changed From blood sugar diagnostic (FreeStyle Lite Strips) As directed tests 4X/day 100 ea 6RF To blood sugar diagnostic (FreeStyle Lite Strips) As directed tests 2X/day 100 ea 6RF From insulin glargine (Lantus Solostar U-100 Insulin) 16 units (0.16 mL) subcut DAILY 30 days 4.8 mL 1RF E11.9 - Type 2 diabetes mellitus without complications, Z79.4 - computer terminal operator (current) use of insulin To insulin glargine (Lantus Solostar U-100 Insulin) 25 units (0.25 mL) subcut DAILY 30 days 15 mL 1RF E11.9 - Type 2 diabetes mellitus without complications, Z79.4 - computer terminal operator (current) use of insulin Refilled blood-glucose meter (FreeStyle Lite Meter kit) As directed 1 ea 0RF E11.9 - Type 2 diabetes mellitus without complications Discontinued blood sugar diagnostic (FreeStyle Lite Strips) Discontinued Reason: Duplicate 1 strip miscellaneous TID 90 days 300 strips 35RF E11.65 - Type 2 diabetes mellitus with hyperglycemia Patient Instructions: increase lantus to 25 units increase trulicity to 3 mg continue metformin 1000 mg bid Coding Level of Care Code Est Pt Level 4 (46699) Complex EM visit Add On G2211 Diagnoses Uncontrolled type 2 diabetes mellitus with hyperglycemia, with long-term current use of insulin E11.65; Z79.4 Dyslipidemia E78.5 Essential hypertension I10
[2024-09-20 10:12] LABS: Glucose, Whole Blood 198 mg/dL (60-115)
--- OUTSIDE RECORDS SUMMARY | 2024-09-20 10:37 | XMS_ITS | Clinical Summary ---
Author Organization [employer] Address [address] [place] [address] Care Team Providers Care District Fire Management Officer Name Role Phone Unavailable Primary Care Provider Unavailabl e Immunizations Name Administration Dates Next Due Pfizer Covid-19 Vaccine 12+ Bivalent 08/05/2022 Social History Tobacco Use Types Packs/Day Years Used Date Smoking Tobacco: Never Assessed Comments Unknown Sex and Gender Information Value Date Recorded Sex Assigned at Female 05/27/2022 10:18 AM EDT Legal Sex Female 10:18 AM EDT Gender Identity Female 05/27/2022 10:18 AM EDT Sexual Orientation Straight 05/27/2022 10 :18 AM EDT Plan of Treatment Health Maintenance Due Date Last Done Comments CT Colonography 1954 Colonoscopy 1954 Colorectal Cancer Screening 1954 Depression Screening 1954 FIT DNA/Cologuard 1954 FIT 1954 FOBT 1954 Sigmoidoscopy 1954 Alcohol/Substance Use Screening 1966 Tobacco Screening 1966 Mammogram 1994 Zoster Vaccines (2 of 3) 06/21/2015 04/26/2015 Pneumococcal Vaccine: 50+ Years (2 of 2 - PCV) 01/12/2016 01/11/2015 COVID-19 Vaccine ( season) 2024 08/05/2022, 07/30/2021, 11/15/2020, Additional history exists Influenza Vaccine (#1) 2024 , 04/26/2021, 07/07/2020, Additional history exists DTaP/Tdap/Td Vaccines (3 - Td or Tdap) 08/29/2026 08/29/2016, 10/07/2014, 05/07/2005 RSV Patients and Patients Aged 60 years or older (1 - 1-dose 75+ series) 2029 HIB Vaccines Aged Out No longer eligi ble based on patient's age to complete this topic HPV Vaccines Aged Out No longer eligi ble based on patient's age to complete this topic Hepatitis A Vaccines Aged Out No long er eligible based on patient's age to complete this topic Hepatitis B Vaccines Aged Out No long er eligible based on patient's age to complete this topic IPV Vaccines Aged Out No longer eligi ble based on patient's age to complete this topic Meningococcal Vaccine Aged Out No raul amie eligible based on patient's age to complete this topic RSV under 20 months Aged Out No longe r eligible based on patient's age to complete this topic Rotavirus Vaccines Aged Out No longer eligible based on patient's age to complete this topic
== END 2024-09-20 10:38 | disposition home or self-care (01) ==
PROVIDERS: PCP Internal Medicine; Visit Provider Physician Assistant
DX: E11.65 Type 2 diabetes mellitus with hyperglycemia (principal); Z79.4 Long term (current) use of insulin; E78.5 Hyperlipidemia, unspecified; I10 Essential (primary) hypertension; Z13.9 Encounter for screening, unspecified; E11.9 Type 2 diabetes mellitus without complications

== ENCOUNTER → 2024-09-20 09:43 | Outpatient (BNVA) | payer OTHER, SELFPAY | PROVIDERS: PCP Internal Medicine; Visit Provider Physician Assistant | DX: E11.65 Type 2 diabetes mellitus with hyperglycemia (principal); E78.5 Hyperlipidemia, unspecified; I10 Essential (primary) hypertension; Z79.4 Long term (current) use of insulin | CPT/HCPCS: 82947; 83036; 99212 ==

== ENCOUNTER 2024-09-28 09:47 | Outpatient (REF) | payer OTHER, SELFPAY ==
--- OUTSIDE RECORDS SUMMARY | 2024-09-29 11:12 | XMS_ITS | Clinical Summary ---
Author Organization [employer] Address [address] [place] [place] [address] Care Team Providers Care Steam Turbine Assembler Name Role Phone Unavailable Primary Care Provider [...]
== END 2024-09-28 09:48 | disposition home or self-care (01) ==
LOC: HO.HOSX 09:47
PROVIDERS: Visit Provider Physician Assistant
DX: Z13.89 Encounter for screening for other disorder (principal)

== ENCOUNTER 2024-11-10 10:34 | Outpatient (AMB) | payer OTHER, SELFPAY ==
[2024-11-10 10:38] VITALS: BP 110/72; PULSE 68; TEMP 36.2; O2SAT 99; BMI 40.7
--- NOTE | 2024-11-10 10:38 | A.OFFPC_ITS ---
Vital Signs 11/10/24 10:38 Height 5 ft 4 in Weight 237 lb BMI 40.7 BP 110/72 Blood Pressure Location Lt brachial Position Sitting Pulse 68 Pulse Source Pulse Oximeter Temp 97.1 F Temp Source Temporal Artery Scan Pulse Oximetry (%) 99 Oxygen Delivery Method Room Air Intake Visit Reasons: Swollen/painful legs Project Management Manager Required: Yes Project Management Manager Language: Emotional Disabilities Teacher Name: used tablet- [id number], zachary Accompanied by: MAMMA LOGIST-Yamilibet Allergies enalapril [ENALAPRIL] Allergy (Intermediate, Verified 11/10/24 11:14) Cough cephalexin [From KEFLEX] Allergy (Mild, Verified 11/10/24 11:14) rash ciprofloxacin [CIPROFLOXACIN] Allergy (Mild, Verified 11/10/24 11:14) HIVES,RASH levothyroxine sodium [LEVOTHYROXINE SODIUM] Allergy (Mild, Verified 11/10/24 11:14) RASH WITH GENERIC MED nitrofurantoin [NITROFURANTOIN] Allergy (Mild, Verified 11/10/24 11:14) RASH Penicillins [PENICILLINS] Allergy (Mild, Verified 11/10/24 11:14) RASH sulfamethoxazole [From BACTRIM] Allergy (Mild, Verified 11/10/24 11:14) rash trimethoprim [From BACTRIM] Allergy (Mild, Verified 11/10/24 11:14) rash ALL GENERIC MEDS Allergy (Mild, Uncoded 11/10/24 11:14) Rash SHRIMP Allergy (Unknown, Uncoded 11/10/24 11:14) Unknown Medication List - Last Reconciled 11/10/24 by CRISTÓBAL Hurd acetaminophen (Tylenol Extra Strength) 500 mg PO Q6H PRN 30 days [adult diapers As directed] [air conditioner As directed] atorvastatin 80 mg PO BEDTIME 90 days azelastine 1 spray intranasal BID betamethasone valerate 0.1% 1 appl topical BID bisacodyl (Dulcolax (bisacodyl)) Take 2 tabs twie a day 2 days before procedure and 2 tabs am of procedure orally bedtime; 2 days blood sugar diagnostic (FreeStyle Lite Strips) As directed tests 2X/day blood-glucose meter (FreeStyle Lite Meter kit) As directed cane As directed carbamide peroxide 6.5% (Debrox) 5 drps otic (ears) DAILY 4 days clobetasol 0.05% 1 appl topical DAILY commode (bedside commode) As directed cyclobenzaprine 5 mg PO TID PRN diclofenac sodium 1% 2 grams topical QID 1 month dicyclomine 20 mg PO TID 30 days diphenhydramine HCl (Banophen) 25 mg PO BEDTIME PRN 30 days disposable gloves (Biobrane Gloves Large) As directed dulaglutide (Trulicity) 3 mg (0.5 mL) subcut QWEEK escitalopram oxalate 5 mg PO DAILY ezetimibe 10 mg PO DAILY 90 days flash glucose scanning reader (Shared Spectrum [place] 2 [place]) As directed flash glucose sensor ([employer]Style Carley 2 Sensor kit) As directed change every 14 days glucose (Dex4 Glucose) 16 grams (4 x 4 gram) PO Q15M PRN humidifiers As directed hydrochlorothiazide 25 mg PO DAILY 90 days NS hydrocortisone 1% (Anti-Itch (hydrocortisone)) 1 appl topical BID PRN 14 days hydrocortisone 1% (Anti-Itch (hydrocortisone)) 1 appl topical BID PRN 2 weeks ibuprofen 400 mg PO Q8H PRN 30 days insulin glargine (Lantus Solostar U-100 Insulin) 25 units (0.25 mL) subcut DAILY 30 days ketotifen fumarate 0.025%(0.035%) 0 drps ophthalmic (eye) lancets (FreeStyle Lancets) 3 times aday lancets (FreeStyle Lancets) use BID as directed to check blood glucose levothyroxine (Synthroid) 175 mcg PO DAILY lidocaine 5% (Lidoderm) 1 patch topical DAILY PRN MDD remove after 12 hours lidocaine 5% 1 patch topical DAILY losartan 100 mg PO DAILY 90 days meloxicam 15 mg PO DAILY 90 days meloxicam 15 mg PO DAILY metformin 1,000 mg (2 x 500 mg) PO BID mirabegron ER (Myrbetriq) 50 mg PO DAILY montelukast 10 mg PO DAILY 30 days naproxen 500 mg PO BID PRN 10 days omeprazole 20 mg PO DAILY 90 days pen needle, diabetic (BD Ultra-Fine Aarti Pen Needle) 1 ea subcut DAILY [pillow As directed] plecanatide (Trulance) 3 mg PO DAILY [powerseat lift chair As directed] ramelteon 8 mg PO DAILY [shower head As directed] silver sulfadiazine 1% (Silvadene) 1 appl topical DAILY sodium,potassium,mag sulfates 17.5-3.13-1.6 gram (Suprep Bowel Prep Kit) 480 mL orally; tacrolimus 0.1% topical [toilet seat elevator As directed] tramadol 50 mg PO BID PRN triamcinolone acetonide 0.025% appl topical underpads (Bed Underpads) Use 1 to 3 once a day prn white petrolatum 41% (Aquaphor Healing) 1 appl topical DAILY PRN 2 weeks [wipes As directed] Tobacco use date assessed: 11/10/24 Fall risk assessment: No Falls in past year Last assessed Fall Risk: 11/10/24 Dental Screening Dental Screen Date: 11/10/24 Did you have a dental visit in the last 12 months?: Yes Did you have a dental problem in the last 6 months where you did not have access to dental care?: No Was dental information given to patient?: Patient has dentist HPI Swollen/painful legs HPI Details The patient is a 68-year-old female presenting with leg swelling and discoloration in her bilateral lower extremities. She experienced a fall in [place] in April, with no evidence of fracture upon initial x-ray examination. Post-fall, she developed noticeable swelling in her leg with red and purplish discoloration along the veins, consistent with varicose veins. The discoloration is described as 'blue, reddish, and purplish', correlating with the course of the veins, indicating a circulatory disturbance. She has noted increased swelling, leading to discomfort in the affected leg, with color changes becoming more pronounced over time. She continues to report pain and swelling exacerbated by prolonged periods of sitting and walking. [facility] Medical History (Updated 11/10/24 @ 11:48 by CRISTÓBAL Hurd) Diabetes mellitus DM2 (diabetes mellitus, type 2) Pain of left thumb Right upper quadrant pain AC (acromioclavicular) arthritis Hypertension Elevated LFTs Osteoarthritis (arthritis due to wear and tear of joints) Physical exam Colon cancer screening Allergic reaction Back pain Right arm pain Vulvar irritation Encounter for annual routine gynecological examination Impacted cerumen of left ear Rash Lower back pain Abnormal laboratory test result Back pain Mild recurrent major depression Thyroid cancer Depression Anxiety Sacroiliac joint disease Lumbar spondylosis GERD without esophagitis Acquired hypothyroidism Benign essential hypertension Constipation Obesity (BMI 30-39.9) Dyslipidemia FDC (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 Mother Diabetes Sister Lung cancer Brother H/O heart surgery Diabetes Son Epilepsy Social History Household Members: Significant Other Housing: Apartment Unable to assess alcohol history related to: Unknown Alcohol intake: never Patient Tobacco Use Status: Never used Tobacco e-Cigarette/Vaping Use: Never Used Second Hand Smoke Exposure: No service: No Current occupational status: disabled Gender identity: Female Cognitive needs: Yes Hearing needs: No Vision needs: No Female Reproductive History Menstrual Age of Menarche: 13 Questionnaire PHQ-9 Over the last 2 weeks, how often have you been bothered by any of the following problems? 1. Little interest or pleasure in doing things: not at all 2. Feeling down, depressed, or hopeless: not at all 3. Trouble falling or staying asleep, or sleeping too much: not at all 4. Feeling tired or having little energy: not at all 5. Poor appetite or overeating: not at all 6. Feeling bad about yourself - or that you are a failure or have let yourself or your family down: not at all 7. Trouble concentrating on things, such as reading the newspaper or watching television: not at all 8. Moving or speaking so slowly that other people could have noticed. Or the opposite - being so fidgety or restless that you have been moving around a lot more than usual: not at all 9. Thoughts that you would be better off or of hurting yourself in some way: not at all Total score: 0 Depression Screening Interpretation: Negative Depression Screening Done: Yes 36763 - PHQ-9 Billing: Yes Source: Developed by Drs. Leland L. Elda Gregorio Kurt Kroenke and colleagues, with an educational edilberto from [employer]. Thrive Questionnaire Date Thrive assessed: 11/10/24 I am a: Patient What is your living situation today?: I have a steady place to live Within the past 12 months, did the food you bought not last and you didn't have the money to get more?: Never true Within the past 12 months, did you worry whether your food would run out before you got money to buy more?: Never true Do you have trouble paying for medicines?: No Do you have trouble getting transportation to medical appointments?: No Do you have trouble paying your heating and electricity bill?: No Do you have trouble taking care of your child, family member or friend?: No Do you have trouble with day-to-day activities such as bathing, preparing meals, shopping, managing finances, etc.?: No Are you currently unemployed and looking for a job?: No Are you interested in more education?: No Please select the resources that you would like help with: None Currently or been in a relationship where the following occur: No concerns reported THRIVE Score: 0 AUDIT C Alcohol Use Questionnaire (AUDIT-C) 1. How often do you have a drink containing alcohol?: Never 3. How often do you have six or more drinks on one occasion?: Never Total Score: 0 Score Reviewed/Action Taken: No DENIS-7 AMB Questionnaire DENIS-7 Date DENIS - 7 assessed: 11/10/24 Feeling nervous, anxious, or on edge: 0 = Not at all Not being able to stop or control worryin = Not at all Worrying too much about different things: 0 = Not at all Trouble relaxin = Not at all Being so restless that it is hard to sit still: 0 = Not at all Becoming easily annoyed or irritable: 0 = Not at all Feeling afraid as if something awful might happen: 0 = Not at all Total DENIS-7 score (0-4 normal; 5-9 mild; 10-14 moderate; 15-21 severe): 0 Source: Developed by Elda Hollins Kurt Kroenke and colleagues, with an educational edilberto from [employer]. DENIS-7 Assessment Billing DENIS-7 Assessment Tool: DENIS-7 Assessment 84009 Review of Systems Const Denies headache(s) Eyes Denies loss of vision ENT Denies dizziness and Denies headache(s) Card Denies chest pain, Reports leg edema, Denies lightheadedness, Denies dyspnea, Denies dyspnea on exertion and Denies orthopnea Resp Denies cough, Denies hemoptysis, Denies dyspnea and Denies dyspnea on exertion GI Denies abdominal pain, Denies melena, Denies constipation, Denies diarrhea and Denies vomiting Denies urinary frequency, Denies dysuria and Denies urinary urgency Musc Reports arthralgias (right knee post fall ), Denies joint swelling, Denies numbness, Denies tingling and Reports other (+swelling and pain in lower extremities) Neuro Denies Abnormal speech present, Denies dizziness, Denies headache(s), Denies loss of vision, Denies numbness and Denies tingling Physical exam (Primary Care) Vital Signs: Last Vital Signs Temp 97.1 F 11/10/24 10:38 Pulse 68 11/10/24 10:38 BP 110/72 11/10/24 10:38 Pulse Ox 99 11/10/24 10:38 Oxygen Delivery Method Room Air 11/10/24 10:38 BMI result Body Mass Index 40.7 Tobacco/Smoking Status: Tobacco use Status Tobacco use date assessed 11/10/24 11/10/24 11:02 Patient Tobacco Use Status Never used Tobacco 11/10/24 10:39 e-Cigarette/Vaping Use Never Used 11/10/24 10:39 PHQ-9: PHQ-9 Score PHQ-9: Total score 0 11/10/24 10:39 Depression Screening Interpretation: Negative Thrive Assessment: Date of Thrive Assessment Date Thrive assessed 11/10/24 11/10/24 10:39 Currently or been in a relationship where the following occur: No concerns reported Const General: healthy appearing, no acute distress, alert and awake Nutritional Appearance: well nourished Orientation/consciousness: oriented to person, oriented to place and oriented to time HENMT Ears: external ears normal General nose exam: Normal external nose present Eyes Conjunctivae: conjunctivae normal Sclerae: sclerae normal Pupils: Equal, round and reactive pupils present Neck Neck: Yes no lymphadenopathy and Yes no JVD Thyroid: Thyroid normal Carotids: no bruits Resp Effort & Inspection: normal respiratory effort and not tachypneic Auscultation: no crackles, no rales, no rhonchi and no wheezes Cardio Rate: regular rate Rhythm: regular rhythm Heart sounds: no murmurs and normal S1 and S2 GI Palpation (GI): Soft to palpation and nontender Auscultation: normal bowel sounds Skin General skin exam: spider nevi (bilateral lower extremities) Neuro General: oriented to person, oriented to place and oriented to time Cranial nerves: Yes Equal, round and reactive pupils present Speech: No Abnormal speech present Gait exam (Neuro): Normal gait present Motor exam (neuro): no tremor noted Extrem Right upper extremity: full ROM Left upper extremity: full ROM Right lower extremity: full ROM and edema Details: pitting and 1+ Left lower extremity: full ROM and edema Details: pitting and 1+ Psych Mental Status: mental status grossly normal Speech and movement: Normal speech and movement present Affect: normal affect Attitude: cooperative Thought process: Normal thought process present Coding Level of Care Code Est Pt Level 3 (02929) Diagnoses Claudication of both lower extremities I73.9 Bilateral lower extremity edema R60.0 Additional Codes DENIS-7 Assessment Billing - DENIS-7 Assessment Tool: DENIS-7 Assessment 48833 ([id number]) PHQ-9 - 09214 - PHQ-9 Billing: Yes ([id number]) Time Spent (min) 33 Assessment & Plan Assessment & Plan (1) Claudication of both lower extremities: Code(s): I73.9 - Peripheral vascular disease, unspecified Category: Medical (2) Bilateral lower extremity edema: Code(s): R60.0 - Localized edema Category: Medical Plan I recommended compression stockings to alleviate the symptoms associated with varicose veins and discussed referral to a vascular specialist for further evaluation. I provided instructions for obtaining the stockings from a surgical supply store. Considering the fall history and post-fall knee pain, I advised continued monitoring and reassurance due to the absence of fracture. The patient denied respiratory distress, alleviating immediate cardiac concerns but was guided to stay aware of potential changes in symptoms or discomfort. I outlined next steps and emphasized continuity of care with the specialist. Patient was informed and verbally consented to the use of an ambient scribe for clinic note documentation during this visit. Orders: Referrals Vascular Surgery Referral I73.9 - Peripheral vascular disease, unspecified, R60.0 - Localized edema Medications: New [compression stockings] As directed 1 ea 0RF R60.0 - Localized edema [compression stockings] As directed 1 ea 0RF R60.0 - Localized edema
--- OUTSIDE RECORDS SUMMARY | 2024-11-10 12:27 | XMS_ITS | Clinical Summary ---
Author Organization [facility] Address [address] [place] [address] Care Team Providers Care Radiation Technician Name Role Phone Unavailable Primary Care Provider [...]
== END 2024-11-10 11:54 | disposition home or self-care (01) ==
LOC: HO.HMCH 10:34
PROVIDERS: PCP Internal Medicine
DX: I73.9 Peripheral vascular disease, unspecified (principal); R60.0 Localized edema

== ENCOUNTER → 2024-11-10 10:34 | Outpatient (BNVA) | payer OTHER, SELFPAY | PROVIDERS: PCP Internal Medicine | DX: I73.9 Peripheral vascular disease, unspecified (principal); R60.0 Localized edema | CPT/HCPCS: 96127; 99212 ==

== ENCOUNTER 2024-11-13 07:59 | Emergency (ER) | payer OTHER, SELFPAY ==
--- NOTE | ~2024-11-13 | XR_ITS ---
CLINICAL HISTORY: pain in right ankle 3 view right ankle Comparison: None Findings: No acute fractures. Ankle mortise intact. No significant loss of joint space, osteophytes, or erosions. No ankle effusion. No radiopaque foreign body. IMPRESSION: 1. No acute findings. This document has been electronically signed by: Eric Ramos MD on 11/13/2024 09:48:10
--- NOTE | ~2024-11-13 | US_ITS ---
CLINICAL HISTORY: leg swelling ? DVT Venous duplex ultrasound right lower extremity Comparison: None Findings: The visualized deep veins are fully compressible with normal Doppler color flow and spectral tracings. No popliteal cyst. IMPRESSION: 1. Negative for right lower extremity deep vein thrombosis. This document has been electronically signed by: Mayito Kennedy DO on 11/13/2024 09:34:11
[2024-11-13 08:01] VITALS: BP 163/57; PULSE 82; RESP 20; TEMP 36.4; O2SAT 97; BMI 38.4
--- NOTE | 2024-11-13 08:51 | ED_ITS ---
HPI - Extremity Problem General Chief complaint: Extremity Problem Stated complaint: R leg pain Time Seen by Provider: 11/13/24 08:25 Source: patient Mode of arrival: ambulatory Limitations: no limitations History of Present Illness HPI Narrative: This is a 68 years old female presented to the emergency department complaining of right ankle pain right knee pain right leg pain. pain right now is localized in the right ankle and leg. She states she has a lot of pain since fall in [place] couple of years ago. She has been taking Tylenol without any relief. MD Complaint: extremity pain Onset (ago): month(s) Pain Consistency: constant Location: right and lower extremity (Ankle) Severity scale (1-10): 5 Quality: aching Radiation: none Relieving factors: nothing Exacerbating factors: nothing Associated symptoms: denies other symptoms Context: recent travel Related Data Home Medications ?Medication ?Instructions ?Recorded ?Confirmed clobetasol 0.05 % topical ointment 1 appl topical DAILY 04/02/22 11/10/24 azelastine 137 mcg (0.1 %) nasal 1 spray intranasal BID 07/02/22 11/10/24 spray betamethasone valerate 0.1 % 1 appl topical BID 07/02/22 11/10/24 topical cream ketotifen fumarate 0.025 % (0.035 0 drp ophthalmic (eye) 07/02/22 11/10/24 %) eye drops tacrolimus 0.1 % topical ointment topical 11/26/22 11/10/24 triamcinolone acetonide 0.025 % appl topical 11/26/22 11/10/24 topical cream ramelteon 8 mg tablet 8 mg PO DAILY 12/27/22 11/10/24 mirabegron 50 mg tablet,extended 50 mg PO DAILY 10/17/23 11/10/24 release 24 hr (Myrbetriq) escitalopram oxalate 5 mg tablet 5 mg PO DAILY 11/10/24 11/10/24 levothyroxine 175 mcg tablet 175 mcg PO DAILY 11/10/24 11/10/24 (Synthroid) Previous Rx's ?Medication ?Instructions ?Recorded hydrocortisone 1 % topical cream 1 appl topical BID PRN skin 09/01/20 (Anti-Itch (hydrocortisone)) irritation 14 days #28.35 grams lancets 28 gauge ([place] #300 ea 10/16/21 Lancets) white petrolatum 41 % topical 1 appl topical DAILY PRN dry skin 10/31/21 ointment (Aquaphor Healing) 2 weeks #20 grams lidocaine 5 % topical patch 1 patch topical DAILY PRN pain #30 11/12/22 (Lidoderm) ea disposable gloves (Biobrane Gloves #100 ea 12/31/22 Large) adult diapers #240 ea 01/07/23 underpads (Bed Underpads) #150 ea 01/07/23 wipes #200 ea 01/07/23 flash glucose sensor (FreeStyle #2 ea 04/08/23 Carley 2 Sensor kit) flash glucose scanning reader #1 ea 04/23/23 (FreeStyle [place] 2 [place]) naproxen 500 mg tablet 500 mg PO BID PRN pain 10 days #20 05/12/23 tabs silver sulfadiazine 1 % topical 1 appl topical DAILY #50 grams 06/17/23 cream (Silvadene) powerseat lift chair #1 ea 06/25/23 cyclobenzaprine 5 mg tablet 5 mg PO TID PRN muscle spasm #10 10/09/23 tabs bisacodyl 5 mg tablet,delayed See Rx Instructions PO BEDTIME 2 10/17/23 release (Dulcolax (bisacodyl)) days #8 tabs dicyclomine 20 mg tablet 20 mg PO TID 30 days #90 tabs 10/17/23 plecanatide 3 mg tablet (Trulance) 3 mg PO DAILY #30 tabs 10/17/23 sodium,potassium,mag sulfates 17.5 480 ml PO .COMPLEX #354 mL 10/17/23 gram-3.13 gram-1.6 gram oral soln (Suprep Bowel Prep Kit) cane #1 ea 12/01/23 shower head #1 ea 12/01/23 toilet seat elevator #1 ea 12/01/23 carbamide peroxide 6.5 % ear drops 5 drp otic (ears) DAILY 4 days #15 12/25/23 (Debrox) mL air conditioner #1 ea 01/26/24 metformin 500 mg tablet 1,000 mg (2 x 500 mg) PO BID #360 02/02/24 tabs pen needle, diabetic 32 gauge x 1 ea subcut DAILY #30 ea 04/21/24 (BD Ultra-Fine Aarti Pen Needle) diclofenac sodium 1 % topical gel 2 g topical QID 1 month #100 grams 04/30/24 commode (bedside commode) #1 ea 06/01/24 hydrocortisone 1 % topical cream 1 appl topical BID PRN skin 06/01/24 (Anti-Itch (hydrocortisone)) irritation 2 weeks #28.4 grams ibuprofen 400 mg tablet 400 mg PO Q8H PRN pain 30 days #90 06/11/24 tabs meloxicam 15 mg tablet 15 mg PO DAILY 90 days #90 tabs 06/21/24 meloxicam 15 mg tablet 15 mg PO DAILY #30 tabs 07/08/24 atorvastatin 80 mg tablet 80 mg PO BEDTIME 90 days #90 tabs 07/13/24 ezetimibe 10 mg tablet 10 mg PO DAILY 90 days #90 tabs 07/13/24 humidifiers #1 ea 07/13/24 losartan 100 mg tablet 100 mg PO DAILY 90 days #90 tabs 07/13/24 pillow #1 ea 07/13/24 montelukast 10 mg tablet 10 mg PO DAILY 30 days #30 tabs 08/02/24 tramadol 50 mg tablet 50 mg PO BID PRN pain #10 tabs 08/15/24 hydrochlorothiazide 25 mg tablet 25 mg PO DAILY 90 days #90 tabs 08/27/24 diphenhydramine HCl 25 mg capsule 25 mg PO BEDTIME PRN allergic 08/30/24 (Banophen) reaction 30 days #20 caps blood sugar diagnostic (FreeStyle #100 ea 09/20/24 Lite Strips) blood-glucose meter (FreeStyle #1 ea 09/20/24 Lite Meter kit) dulaglutide 3 mg/0.5 mL 3 mg (0.5 mL) subcut QWEEK #2 mL 09/20/24 subcutaneous pen injector ([facility]) glucose 4 gram chewable tablet 16 g (4 x 4 gram) PO Q15M PRN 09/20/24 (Dex4 Glucose) hypoglycemia #100 tabs insulin glargine 100 unit/mL (3 25 unit (0.25 mL) subcut DAILY 30 09/20/24 mL) subcutaneous pen (Lan days #15 mL Solostar U-100 Insulin) lancets 28 gauge (FreeStyle #100 ea 09/20/24 Lancets) omeprazole 20 mg capsule,delayed 20 mg PO DAILY 90 days #90 caps 10/08/24 release acetaminophen 500 mg tablet 500 mg PO Q6H PRN fever or pain 30 11/07/24 (Tylenol Extra Strength) days #120 tabs compression stockings #1 ea 11/10/24 lidocaine 5 % topical patch 1 patch topical DAILY #15 ea 11/13/24 oxycodone 5 mg tablet 5 mg PO Q6H PRN pain #15 tabs 11/13/24 Allergies Allergy/AdvReac Type Severity Reaction Status Date / Time enalapril [ENALAPRIL] Allergy Intermediate Cough Verified 11/13/24 08:08 cephalexin [From KEFLEX] Allergy Mild rash Verified 11/13/24 08:08 ciprofloxacin [CIPROFLOXACIN] Allergy Mild HIVES,RASH Verified 11/13/24 08:08 levothyroxine sodium Allergy Mild RASH WITH Verified 11/13/24 08:08 [LEVOTHYROXINE SODIUM] GENERIC MED nitrofurantoin Allergy Mild RASH Verified 11/13/24 08:08 [NITROFURANTOIN] Penicillins [PENICILLINS] Allergy Mild RASH Verified 11/13/24 08:08 sulfamethoxazole Allergy Mild rash Verified 11/13/24 08:08 [From BACTRIM] trimethoprim [From BACTRIM] Allergy Mild rash Verified 11/13/24 08:08 ALL GENERIC MEDS Allergy Mild Rash Uncoded 11/10/24 11:14 SHRIMP Allergy Unknown Unknown Uncoded 11/10/24 11:14 Review of Systems Constitutional: Constitutional: Reports no additional constitutional complaints Cardiovascular: Cardiovascular: Reports no additional cardiovascular complaints PMFSH Past Medical History Attestation statement: The following information was validated with the patient. Medical History Diabetes mellitus DM2 (diabetes mellitus, type 2) Pain of left thumb Right upper quadrant pain AC (acromioclavicular) arthritis Hypertension Elevated LFTs Osteoarthritis (arthritis due to wear and tear of joints) Physical exam Colon cancer screening Allergic reaction Back pain Right arm pain Vulvar irritation Encounter for annual routine gynecological examination Impacted cerumen of left ear Rash Lower back pain Abnormal laboratory test result Back pain Mild recurrent major depression Thyroid cancer Depression Anxiety Sacroiliac joint disease Lumbar spondylosis GERD without esophagitis Acquired hypothyroidism Benign essential hypertension Constipation Obesity (BMI 30-39.9) Dyslipidemia 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 Mother Diabetes Sister Lung cancer Brother H/O heart surgery Diabetes Son Epilepsy Social History Social History Household Members: Significant Other Housing: Apartment Unable to assess alcohol history related to: Unknown Alcohol intake: never Patient Tobacco Use Status: Never used Tobacco e-Cigarette/Vaping Use: Never Used Second Hand Smoke Exposure: No service: No Current occupational status: disabled Gender identity: Female Cognitive needs: Yes Hearing needs: No Vision needs: No Physical Exam Vital Signs: Vital Signs: Last Vital Signs Temp 97.5 F 11/13/24 10:23 Pulse 72 11/13/24 10:23 Resp 18 11/13/24 10:23 BP 142/68 H 11/13/24 10:23 Pulse Ox 100 11/13/24 10:23 O2 Del Method Room Air 11/13/24 10:23 BMI result Body Mass Index 38.4 Not acute distress looks well comfortable in the stretcher Const: General: cooperative Nutritional Appearance: well nourished Orientation/consciousness: patient oriented x3 Limitations: no limitations HEENT: Head: Yes normal to inspection Mouth: Normal oral and palatal mucosa present Throat: Yes posterior oropharynx normal Neck: Neck: Yes normal visual inspection Chest: Chest palpation & inspection: normal inspection of the chest Resp: Effort & Inspection: normal respiratory effort Auscultation: clear to auscultation bilaterally Cardio: Jugular venous distension: no JVD Rate: regular rate Rhythm: regular rhythm GI: Inspection: Yes normal to inspection Palpation (GI): Soft to palpation, not firm, nontender and no guarding Neuro: General: patient oriented x3 Extrem: Other: Examination of the right lower extremity showed good pedal pulses, she has some tenderness in the ankle no deformity seen Course Reevaluation(s) Reevaluation #1: Workup has been now completed right lower extremity ultrasound is negative for DVT, x-ray of the ankle negative for fracture at this point I think the patient can be safely discharged home she can follow-up with the primary care physician Time: 10:11 Medications Administered Discontinued Medications Generic Name Dose Route Start Last Admin Trade Name Freq PRN Reason Stop Dose Admin Oxycodone HCl 5 mg 11/13/24 08:50 11/13/24 09:26 Oxycodone Hcl Immed Release 5 Mg Tablet PO 11/13/24 08:51 5 mg ONCE ONE Administration Medical Decision Making Medical Decision Making [facility] Narrative: Patient is here basically with a right leg pain and right ankle pain the symptoms are chronic it is reasonable and maybe to obtain an ultrasound of the leg and x-ray of the ankle. Differential Diagnosis Differential Diagnoses: The differential diagnosis associated with the presentation includes Arthritis/stress fracture/DVT Admission/Observation Consideration of admission/observation: Escalation of care including admission/observation considered Lab Data MDM Lab Attestation statement: I reviewed the patient's lab results. Independent Interpretation I performed an independent interpretation of an: Plain X-Ray and Ultrasound Interpretation: No DVT ultrasound was reviewed interpreted by me as well X-ray shows no fracture Radiology Impression Discussion of test interpretation with radiology: I have reviewed the radiologist's reading. Discharge Plan Discharge Clinical Impression: Leg pain, right Patient Disposition: Home, Self-Care Instructions: Leg Pain (ED) Additional Instructions: Follow-up with your primary care physician return to the emergency room if you worse any concern Prescriptions: New oxycodone 5 mg tablet 5 mg PO Q6H PRN (Reason: pain) Qty: 15 0RF Rx Instructions: partial filing upon pt request; Partial Fill upon patient request. No Action hydrocortisone [Anti-Itch (HC)] 1 % cream 1 appl topical BID PRN (Reason: skin irritation) 14 Days Qty: 28.35 1RF (DME) lancets [FreeStyle Lancets] 28 gauge misc See Rx Instructions .ROUTE .MEDSUPPLY Qty: 300 6RF Rx Instructions: 3 times aday Aquaphor Healing 41 % ointment 1 appl topical DAILY PRN (Reason: dry skin) 14 Days Qty: 20 0RF (DME) disposable gloves [Biobrane Gloves Large] Misc See Rx Instructions .Route Qty: 100 6RF Rx Instructions: As directed (DME) adult diapers large See Rx Instructions .Route .MEDSUPPLY Qty: 240 11RF Rx Instructions: As directed (DME) underpads [Bed Underpads] Pad See Rx Instructions .Route Qty: 150 11RF Rx Instructions: Use 1 to 3 once a day prn (DME) wipes See Rx Instructions .Route .MEDSUPPLY Qty: 200 11RF Rx Instructions: As directed (DME) FreeStyle [place]ley 2 Sensor Kit See Rx Instructions .Route Qty: 2 11RF Rx Instructions: As directed change every 14 days (DME) FreeStyle [place] 2 [place] Misc See Rx Instructions .Route Qty: 1 0RF Rx Instructions: As directed naproxen 500 mg tablet 500 mg PO BID PRN (Reason: pain) 10 Days Qty: 20 0RF (DME) powerseat lift chair See Rx Instructions .Route .MEDSUPPLY Qty: 1 0RF Rx Instructions: As directed (DME) cane Device See Rx Instructions .Route Qty: 1 0RF Rx Instructions: As directed (DME) shower head See Rx Instructions .Route .MEDSUPPLY Qty: 1 0RF Rx Instructions: As directed (DME) toilet seat elevator See Rx Instructions .Route .MEDSUPPLY Qty: 1 0RF Rx Instructions: As directed (DME) air conditioner See Rx Instructions .Route .MEDSUPPLY Qty: 1 0RF Rx Instructions: As directed pen needle, diabetic [BD Ultra-Fine Aarti Pen Needle] 32 gauge x 5/32 needle 1 ea subcut DAILY Qty: 30 11RF diclofenac sodium 1 % gel 2 g topical QID 30 Days Qty: 100 4RF Rx Instructions: apply to single elbow, wrist or hand; for hand includes palm/fingers/back of hand (DME) bedside commode Kit See Rx Instructions .Route Qty: 1 0RF Rx Instructions: As directed hydrocortisone [Anti-Itch (HC)] 1 % cream 1 appl topical BID PRN (Reason: skin irritation) 14 Days Qty: 28.4 0RF ibuprofen 400 mg tablet 400 mg PO Q8H PRN (Reason: pain) 30 Days Qty: 90 0RF meloxicam 15 mg tablet 15 mg PO DAILY 90 Days Qty: 90 0RF montelukast 10 mg tablet 10 mg PO DAILY 30 Days Qty: 30 3RF tramadol 50 mg tablet 50 mg PO BID PRN (Reason: pain) Qty: 10 0RF hydrochlorothiazide 25 mg tablet 25 mg PO DAILY 90 Days Qty: 90 4RF diphenhydramine HCl [Banophen] 25 mg capsule 25 mg PO BEDTIME PRN (Reason: allergic reaction) 30 Days Qty: 20 2RF omeprazole 20 mg capsule,delayed release(DR/EC) 20 mg PO DAILY 90 Days Qty: 90 0RF acetaminophen [Tylenol Extra Strength] 500 mg tablet 500 mg PO Q6H PRN (Reason: fever or pain) 30 Days Qty: 120 2RF lidocaine 5 % adhesive patch,medicated 1 patch topical DAILY Qty: 15 0RF Rx Instructions: leave on most painful area for up to 12 hrs lidocaine [Lidoderm] 5 % adhesive patch,medicated 1 patch topical DAILY MDD remove after 12 hours PRN (Reason: pain) Qty: 30 0RF Rx Instructions: leave on most painful area for up to 12 hrs cyclobenzaprine 5 mg tablet 5 mg PO TID PRN (Reason: muscle spasm) Qty: 10 0RF silver sulfadiazine [Silvadene] 1 % cream 1 appl topical DAILY Qty: 50 0RF Rx Instructions: apply a 1.5 mm thickness Debrox 6.5 % drops 5 drp otic (ears) DAILY 4 Days Qty: 15 0RF clobetasol 0.05 % ointment 1 appl topical DAILY Rx Instructions: Use daily for 2 weeks, then every other day for 2 wks, then twice a week azelastine 137 mcg (0.1 %) aerosol,spray 1 spray intranasal BID betamethasone valerate 0.1 % cream 1 appl topical BID ketotifen fumarate 0.025 % (0.035 %) drops 0 drp ophthalmic (eye) tacrolimus 0.1 % ointment topical triamcinolone acetonide 0.025 % cream topical ramelteon 8 mg tablet 8 mg PO DAILY Myrbetriq 50 mg tablet extended release 24 hr 50 mg PO DAILY Trulance 3 mg tablet 3 mg PO DAILY Qty: 30 6RF dicyclomine 20 mg tablet 20 mg PO TID 30 Days Qty: 90 1RF sodium,potassium,mag sulfates [Suprep Bowel Prep Kit] 17.5-3.13-1.6 gram recon soln 480 ml PO .COMPLEX Qty: 354 0RF Rx Instructions: 480 mL orally; bisacodyl [Dulcolax (bisacodyl)] 5 mg tablet,delayed release (DR/EC) See Rx Instructions PO BEDTIME 2 Days Qty: 8 0RF Rx Instructions: Take 2 tabs twie a day 2 days before procedure and 2 tabs am of procedure orally bedtime; (DME) FreeStyle Lite Strips Strip See Rx Instructions .Route Qty: 100 6RF Rx Instructions: As directed tests 2X/day (DME) blood-glucose meter [FreeStyle Lite Meter] Kit See Rx Instructions .Route Qty: 1 0RF Rx Instructions: As directed (DME) lancets [FreeStyle Lancets] 28 gauge misc See Rx Instructions .ROUTE .MEDSUPPLY Qty: 100 3RF Rx Instructions: use BID as directed to check blood glucose glucose [Dex4 Glucose] 4 gram tablet,chewable 16 g PO Q15M PRN (Reason: hypoglycemia) Qty: 100 0RF Rx Instructions: until symptoms of low blood sugar are controlled Trulicity 3 mg/0.5 mL pen injector 3 mg subcut QWEEK Qty: 2 6RF insulin glargine [Lantus Solostar U-100 Insulin] 100 unit/mL (3 mL) insulin pen 25 unit subcut DAILY 30 Days Qty: 15 1RF metformin 500 mg tablet 1,000 mg PO BID Qty: 360 3RF atorvastatin 80 mg tablet 80 mg PO BEDTIME 90 Days Qty: 90 1RF ezetimibe 10 mg tablet 10 mg PO DAILY 90 Days Qty: 90 1RF losartan 100 mg tablet 100 mg PO DAILY 90 Days Qty: 90 1RF (DME) humidifiers Misc See Rx Instructions .Route Qty: 1 0RF Rx Instructions: As directed (DME) pillow See Rx Instructions .Route .MEDSUPPLY Qty: 1 0RF Rx Instructions: As directed meloxicam 15 mg tablet 15 mg PO DAILY Qty: 30 2RF escitalopram oxalate 5 mg tablet 5 mg PO DAILY levothyroxine [Synthroid] 175 mcg tablet 175 mcg PO DAILY (DME) compression stockings See Rx Instructions .Route .MEDSUPPLY Qty: 1 0RF Rx Instructions: As directed Interventions: ED Discharge Assessment Last Done: 11/13/24 10:23 Discharge Date/Time: 11/13/24 10:24 Print Language: Jamaican
--- NOTE | 2024-11-13 09:02 | PC.NURSE ---
Ultrasound at bedside with patient.
[2024-11-13] MEDS: oxyCODONE HCl Immed Release 5 MG TABLET PO (09:26)
[2024-11-13 10:23] VITALS: BP 142/68; PULSE 72; RESP 18; TEMP 36.4; O2SAT 100
== END 2024-11-13 10:24 | disposition home or self-care (01) ==
PROVIDERS: Emergency Provider Emergency Medicine; PCP Internal Medicine
DX: M79.604 Pain in right leg (principal); M25.571 Pain in right ankle and joints of right foot; Z79.899 Other long term (current) drug therapy
CPT/HCPCS: 73610; 93971; 99284

== ENCOUNTER → 2024-11-13 08:45 | Outpatient (BNV) | payer OTHER, SELFPAY | PROVIDERS: Emergency Provider Emergency Medicine; PCP Internal Medicine; Visit Provider Radiology Diagnostic Radiology | DX: R22.41 Localized swelling, mass and lump, right lower limb (principal); M25.571 Pain in right ankle and joints of right foot | CPT/HCPCS: 73610; 93971 ==

== ENCOUNTER 2024-11-19 09:11 | Outpatient (AMB) | payer OTHER, SELFPAY ==
[2024-11-19 09:14] VITALS: BP 132/78; PULSE 70; O2SAT 97
--- NOTE | 2024-11-19 09:14 | A.OFFVIS_ITS ---
Vital Signs 11/19/24 09:14 Weight 239 lb 10.279 oz BP 132/78 Blood Pressure Location Lt brachial Position Sitting Pulse 70 Pulse Source Pulse Oximeter Pulse Oximetry (%) 97 Oxygen Delivery Method Room Air Intake Visit Reasons: T2DM Intake Note: Patient present today for Type 2 Diabetes Mellitus Last Diabetic eye exam: 03/2024 Last Podiatry Visit: Doesn't have one Random Glucose: 134 mg/dl HgA1C: 9.5% 09/20/24 Scholarship Counselor Required: Yes Scholarship Counselor Language: Transportation Department Head Services: Scholarship Counselor Present Scholarship Counselor Name: Louise [id number] Information Interpreted: non-clinical & clinical Accompanied by: Self / Same As Patient Allergies enalapril [ENALAPRIL] Allergy (Intermediate, Verified 11/19/24 09:21) Cough cephalexin [From KEFLEX] Allergy (Mild, Verified 11/19/24 09:21) rash ciprofloxacin [CIPROFLOXACIN] Allergy (Mild, Verified 11/19/24 09:21) HIVES,RASH levothyroxine sodium [LEVOTHYROXINE SODIUM] Allergy (Mild, Verified 11/19/24 09:21) RASH WITH GENERIC MED nitrofurantoin [NITROFURANTOIN] Allergy (Mild, Verified 11/19/24 09:21) RASH Penicillins [PENICILLINS] Allergy (Mild, Verified 11/19/24 09:21) RASH sulfamethoxazole [From BACTRIM] Allergy (Mild, Verified 11/19/24 09:21) rash trimethoprim [From BACTRIM] Allergy (Mild, Verified 11/19/24 09:21) rash ALL GENERIC MEDS Allergy (Mild, Uncoded 11/19/24 09:21) Rash SHRIMP Allergy (Unknown, Uncoded 11/19/24 09:21) Unknown Medication List - Last Reconciled 11/19/24 by Radha Chavira PA-C acetaminophen (Tylenol Extra Strength) 500 mg PO Q6H PRN 30 days [adult diapers As directed] [air conditioner As directed] atorvastatin 80 mg PO BEDTIME 90 days azelastine 1 spray intranasal BID betamethasone valerate 0.1% 1 appl topical BID bisacodyl (Dulcolax (bisacodyl)) Take 2 tabs twie a day 2 days before procedure and 2 tabs am of procedure orally bedtime; 2 days blood sugar diagnostic (FreeStyle Lite Strips) As directed tests 2X/day blood-glucose meter (FreeStyle Lite Meter kit) As directed cane As directed carbamide peroxide 6.5% (Debrox) 5 drps otic (ears) DAILY 4 days clobetasol 0.05% 1 appl topical DAILY commode (bedside commode) As directed [compression stockings As directed] cyclobenzaprine 5 mg PO TID PRN diclofenac sodium 1% 2 grams topical QID 1 month dicyclomine 20 mg PO TID 30 days diphenhydramine HCl (Banophen) 25 mg PO BEDTIME PRN 30 days disposable gloves (Biobrane Gloves Large) As directed dulaglutide (Trulicity) 3 mg (0.5 mL) subcut QWEEK escitalopram oxalate 5 mg PO DAILY ezetimibe 10 mg PO DAILY 90 days glucose (Dex4 Glucose) 16 grams (4 x 4 gram) PO Q15M PRN humidifiers As directed hydrochlorothiazide 25 mg PO DAILY 90 days NS hydrocortisone 1% (Anti-Itch (hydrocortisone)) 1 appl topical BID PRN 2 weeks ibuprofen 400 mg PO Q8H PRN 30 days ketotifen fumarate 0.025%(0.035%) 0 drps ophthalmic (eye) lancets (FreeStyle Lancets) use BID as directed to check blood glucose levothyroxine (Synthroid) 175 mcg PO DAILY lidocaine 5% (Lidoderm) 1 patch topical DAILY PRN MDD remove after 12 hours lidocaine 5% 1 patch topical DAILY losartan 100 mg PO DAILY 90 days meloxicam 15 mg PO DAILY metformin 1,000 mg (2 x 500 mg) PO BID mirabegron ER (Myrbetriq) 50 mg PO DAILY montelukast 10 mg PO DAILY 30 days omeprazole 20 mg PO DAILY 90 days oxycodone 5 mg PO Q6H PRN pen needle, diabetic (BD Ultra-Fine Aarti Pen Needle) 1 ea subcut DAILY [pillow As directed] plecanatide (Trulance) 3 mg PO DAILY [powerseat lift chair As directed] ramelteon 8 mg PO DAILY [shower head As directed] silver sulfadiazine 1% (Silvadene) 1 appl topical DAILY sodium,potassium,mag sulfates 17.5-3.13-1.6 gram (Suprep Bowel Prep Kit) 480 mL orally; tacrolimus 0.1% topical [toilet seat elevator As directed] tramadol 50 mg PO BID PRN triamcinolone acetonide 0.025% appl topical underpads (Bed Underpads) Use 1 to 3 once a day prn white petrolatum 41% (Aquaphor Healing) 1 appl topical DAILY PRN 2 weeks [wipes As directed] HPI HPI T2DM: Details: Patient is 68-year-old female who presents today for a follow-up regarding her diabetes. She has a significant past medical history of hypertension, hyperlipidemia, GERD, depression, anxiety, polyarthralgia , acquired hypothyroidism s/p papillary thyroid carcinoma and obesity. Phone learning disabilities resource teacher used today. Louise -forgot to get labs done prior to today's appointment. Endo: DM-She was diagnosed with type 2 diabetes in 2012. Her A1c is 9.5. She is currently on Lantus 16 units metformin 1000 mg twice a day, Trulicity 3mg/week. She denies any hyper or hypoglycemic events. States that she never increased the Lantus because she did not want to. They gave her the generic at the pharmacy and she did not like this medication because it caused burning when she would inject it. She tells me today that she wants to stop the metformin altogether because her daughter's friend told her that this can be unsafe to take for as long as she has taken it. -She Intolerant of Jardiance due to uncontrollable urination and diarrhea. Adamantly refuses a CGM. She states that she has very sensitive skin and would be worried about allergic reaction. She is happy to check her blood sugars a few times a day. She did not bring in her glucometer. States that she has not needed to correct any hypoglycemic events. States that if she would she would use candy She has an upcoming appointment with her rn endoscopy in May. She states the efficiency miner keeps cancelling but she would like to see someone. She denies any difficulty feeling her feet. States that she does not have pain but her toenails are often thickened especially the right great toenail. CV: Blood pressure today in the office is 132/78 . She is on losartan 100 mg and hctz 25 mg. Cholesterol is controlled with atorvastatin 80 mg and Zetia 10 mg. [facility] Medical History (Updated 11/19/24 @ 09:24 by Radha Chavira PA-C) Diabetes mellitus DM2 (diabetes mellitus, type 2) Pain of left thumb Right upper quadrant pain AC (acromioclavicular) arthritis Hypertension Elevated LFTs Osteoarthritis (arthritis due to wear and tear of joints) Physical exam Colon cancer screening Allergic reaction Back pain Right arm pain Vulvar irritation Encounter for annual routine gynecological examination Impacted cerumen of left ear Rash Lower back pain Abnormal laboratory test result Back pain Mild recurrent major depression Thyroid cancer Depression Anxiety Sacroiliac joint disease Lumbar spondylosis GERD without esophagitis Acquired hypothyroidism Benign essential hypertension Constipation Obesity (BMI 30-39.9) Dyslipidemia superintendent container 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 Mother Diabetes Sister Lung cancer Brother H/O heart surgery Diabetes Son Epilepsy Social History Household Members: Significant Other Housing: Apartment Unable to assess alcohol history related to: Unknown Alcohol intake: never Patient Tobacco Use Status: Never used Tobacco e-Cigarette/Vaping Use: Never Used Second Hand Smoke Exposure: No service: No Current occupational status: disabled Gender identity: Female Cognitive needs: Yes Hearing needs: No Vision needs: No Female Reproductive History Menstrual Age of Menarche: 13 Physical Exam Const Orientation/consciousness: patient oriented x3 HEENT Ears: hearing grossly normal bilaterally Neck Thyroid: Thyroid normal Lymphatic: no lymphadenopathy noted Resp Auscultation: clear to auscultation bilaterally Cardio Rate: regular rate Rhythm: regular rhythm Heart sounds: S1 normal heart sound present and S2 normal heart sound present Skin General skin exam: no rashes or lesions noted Neuro General: patient oriented x3, gait normal and no focal motor deficits Results Reviewed Results Reviewed: Laboratory Tests 07/09/24 09/20/24 09:38 10:11 Sodium 139 Potassium 4.0 Chloride 104 Carbon Dioxide 26 Anion Gap 13 BUN 27 H Creatinine 0.74 Estimated GFR > 60 Hgb A1c (Clinic) 9.5 H Triglycerides 71 Cholesterol 173 LDL Cholesterol, Calc 104 H HDL Cholesterol 55 Assessment & Plan Assessment & Plan (1) Uncontrolled type 2 diabetes mellitus with hyperglycemia, with long-term current use of insulin: Code(s): E11.65 - Type 2 diabetes mellitus with hyperglycemia; Z79.4 - superintendent container terminal (current) use of insulin Category: Medical Plan: Increase Lantus to 25 Reduce metformin to 500 mg twice a day. Continue with the Trulicity 3 mg Advised that she needs to get labs prior to her next appointment. Return for follow up in 1 month. Sooner if needed. (2) Essential hypertension: Code(s): I10 - Essential (primary) hypertension Category: Medical Plan: WNL. Continue current regimen (3) Dyslipidemia: Code(s): E78.5 - Hyperlipidemia, unspecified Category: Medical Plan: We will monitor. Medications: New insulin glargine (Lantus Solostar U-100 Insulin) 25 units (0.25 mL) subcut DAILY 15 mL 5RF Lantus Solostar U-100 Insulin (insulin glargine) 25 units (0.25 mL) subcut DAILY 15 mL 5RF NS Changed From pen needle, diabetic (BD Ultra-Fine Aarti Pen Needle) 1 ea subcut DAILY 30 ea 11RF E11.9 - Type 2 diabetes mellitus without complications, Z79.4 - superintendent container terminal (current) use of insulin To pen needle, diabetic 1 ea subcut DAILY 30 ea 11RF E11.9 - Type 2 diabetes mellitus without complications, Z79.4 - superintendent container terminal (current) use of insulin From metformin 1,000 mg (2 x 500 mg) PO BID 360 tabs 3RF E11.65 - Type 2 diabetes mellitus with hyperglycemia To metformin 500 mg PO BID 180 tabs 3RF E11.65 - Type 2 diabetes mellitus with hyperglycemia From triamcinolone acetonide 0.025% topical To triamcinolone acetonide 0.025% 1 appl topical BID 7 days 15 grams 1RF Coding Level of Care Code Est Pt Level 4 (70809) Complex EM visit Add On G2211 Diagnoses Uncontrolled type 2 diabetes mellitus with hyperglycemia, with long-term current use of insulin E11.65; Z79.4 Essential hypertension I10 Dyslipidemia E78.5
[2024-11-19 09:31] LABS: Glucose, Whole Blood 134 mg/dL (60-115)
== END 2024-11-19 09:46 | disposition home or self-care (01) ==
LOC: HO.ENCR 09:12
PROVIDERS: PCP Internal Medicine; Visit Provider Physician Assistant
DX: E11.65 Type 2 diabetes mellitus with hyperglycemia (principal); Z79.4 Long term (current) use of insulin; I10 Essential (primary) hypertension; E78.5 Hyperlipidemia, unspecified

== ENCOUNTER → 2024-11-19 09:11 | Outpatient (BNVA) | payer OTHER, SELFPAY | PROVIDERS: PCP Internal Medicine; Visit Provider Physician Assistant | DX: E11.65 Type 2 diabetes mellitus with hyperglycemia (principal); I10 Essential (primary) hypertension; E78.5 Hyperlipidemia, unspecified; K21.9 Gastro-esophageal reflux disease without esophagitis; F32.A Depression, unspecified; F41.9 Anxiety disorder, unspecified; M25.50 Pain in unspecified joint; E03.9 Hypothyroidism, unspecified; Z79.4 Long term (current) use of insulin | CPT/HCPCS: 82947; 99212 ==

== ENCOUNTER 2024-12-24 10:59 | Outpatient (AMB) | payer OTHER, SELFPAY ==
--- NOTE | 2024-12-24 11:00 | MHC.OFFVIS ---
Vital Signs 12/24/24 11:03 Height 5 ft 6 in Weight 245 lb 13.047 oz BMI 39.7 BP 136/82 Blood Pressure Location Lt brachial Position Sitting Pulse 86 Pulse Source Pulse Oximeter Pulse Oximetry (%) 98 Oxygen Delivery Method Room Air Intake Visit Reasons: T2DM Intake Note: Patient present today for Type 2 Diabetes Mellitus Last Diabetic eye exam: December 07, 2024 [facility] Last Podiatry Visit: Does not see a Forestry Instructor Random Glucose: 174 mg/dl HgA1C: 8.1% 12/24/2024 Distance Learning Program Coordinator Required: Yes Distance Learning Program Coordinator Language: Communications Operator Services: Distance Learning Program Coordinator Present Distance Learning Program Coordinator Name: Swathi [id number] Information Interpreted: non-clinical & clinical Accompanied by: Self / Same As Patient Allergies enalapril [ENALAPRIL] Allergy (Intermediate, Verified 12/24/24 11:04) Cough cephalexin [From KEFLEX] Allergy (Mild, Verified 12/24/24 11:04) rash ciprofloxacin [CIPROFLOXACIN] Allergy (Mild, Verified 12/24/24 11:04) HIVES,RASH levothyroxine sodium [LEVOTHYROXINE SODIUM] Allergy (Mild, Verified 12/24/24 11:04) RASH WITH GENERIC MED nitrofurantoin [NITROFURANTOIN] Allergy (Mild, Verified 12/24/24 11:04) RASH Penicillins [PENICILLINS] Allergy (Mild, Verified 12/24/24 11:04) RASH sulfamethoxazole [From BACTRIM] Allergy (Mild, Verified 12/24/24 11:04) rash trimethoprim [From BACTRIM] Allergy (Mild, Verified 12/24/24 11:04) rash ALL GENERIC MEDS Allergy (Mild, Uncoded 12/24/24 11:04) Rash SHRIMP Allergy (Unknown, Uncoded 12/24/24 11:04) Unknown Medication List - Last Reconciled 12/24/24 by Radha Chavira PA-C acetaminophen (Tylenol Extra Strength) 500 mg PO Q6H PRN 30 days [adult diapers As directed] [air conditioner As directed] atorvastatin 80 mg PO BEDTIME 90 days azelastine 1 spray intranasal BID betamethasone valerate 0.1% 1 appl topical BID bisacodyl (Dulcolax (bisacodyl)) Take 2 tabs twie a day 2 days before procedure and 2 tabs am of procedure orally bedtime; 2 days blood sugar diagnostic (FreeStyle Lite Strips) As directed tests 2X/day blood-glucose meter (FreeStyle Lite Meter kit) As directed cane As directed carbamide peroxide 6.5% (Debrox) 5 drps otic (ears) DAILY 4 days clobetasol 0.05% 1 appl topical DAILY commode (bedside commode) As directed [compression stockings As directed] cyclobenzaprine 5 mg PO TID PRN diclofenac sodium 1% 2 grams topical QID 1 month dicyclomine 20 mg PO TID 30 days diphenhydramine HCl (Banophen) 25 mg PO BEDTIME PRN 30 days disposable gloves (Biobrane Gloves Large) As directed escitalopram oxalate 5 mg PO DAILY ezetimibe 10 mg PO DAILY 90 days glucose (Dex4 Glucose) 16 grams (4 x 4 gram) PO Q15M PRN humidifiers As directed hydrochlorothiazide 25 mg PO DAILY 90 days NS hydrocortisone 1% (Anti-Itch (hydrocortisone)) 1 appl topical BID PRN 2 weeks ibuprofen 400 mg PO Q8H PRN 30 days ketotifen fumarate 0.025%(0.035%) 0 drps ophthalmic (eye) lancets (FreeStyle Lancets) use BID as directed to check blood glucose Lantus Solostar U-100 Insulin (insulin glargine) 25 units (0.25 mL) subcut DAILY NS levothyroxine (Synthroid) 175 mcg PO DAILY lidocaine 5% (Lidoderm) 1 patch topical DAILY PRN MDD remove after 12 hours lidocaine 5% 1 patch topical DAILY losartan 100 mg PO DAILY 90 days meloxicam 15 mg PO DAILY metformin 500 mg PO BID mirabegron ER (Myrbetriq) 50 mg PO DAILY montelukast 10 mg PO DAILY 30 days omeprazole 20 mg PO DAILY 90 days oxycodone 5 mg PO Q6H PRN pen needle, diabetic 1 ea subcut DAILY [pillow As directed] plecanatide (Trulance) 3 mg PO DAILY [powerseat lift chair As directed] ramelteon 8 mg PO DAILY [shower head As directed] silver sulfadiazine 1% (Silvadene) 1 appl topical DAILY sodium,potassium,mag sulfates 17.5-3.13-1.6 gram (Suprep Bowel Prep Kit) 480 mL orally; tacrolimus 0.1% topical [toilet seat elevator As directed] tramadol 50 mg PO BID PRN triamcinolone acetonide 0.025% 1 appl topical BID 7 days underpads (Bed Underpads) Use 1 to 3 once a day prn white petrolatum 41% (Aquaphor Healing) 1 appl topical DAILY PRN 2 weeks [wipes As directed] HPI HPI T2DM: Details: Patient is 69-year-old female who presents today for a follow-up regarding her diabetes. She has a significant past medical history of hypertension, hyperlipidemia, GERD, depression, anxiety, polyarthralgia , acquired hypothyroidism s/p papillary thyroid carcinoma and obesity. Phone regulatory scientist used today. Swathi Way: DM-She was diagnosed with type 2 diabetes in 2012. Her A1c was 9.5 and today it is 8.1. She is currently on Lantus 25 units metformin 500 mg twice a day, Trulicity 3mg/week. She states her blood sugars have 98-130. She states she checks it fasting and after eating. The highest it has been has been 130. She does check it 1-2 a day. No glucose readings less than 70. She denies any hyper or hypoglycemic events. She tells me today that she wants to stop the metformin altogether because her daughter's friend told her that this can be unsafe to take for as long as she has taken it. She does not like the idea of some of the pills and the side effects. She states that she is doing well with the insulin and Trulicity combination. She does tolerate the metformin. -She Intolerant of Jardiance due to uncontrollable urination and diarrhea. Adamantly refuses a CGM. She states that she has very sensitive skin and would be worried about allergic reaction. She is happy to check her blood sugars a few times a day. She did not bring in her glucometer. States that she has not needed to correct any hypoglycemic events. States that if she would she would use candy She has an upcoming appointment with her information systems supervisor in May. She states the support services rep keeps cancelling but she would like to see someone. She denies any difficulty feeling her feet. States that she does not have pain but her toenails are often thickened especially the right great toenail. CV: Blood pressure today in the office is 136/82.. She is on losartan 100 mg and hctz 25 mg. Cholesterol is controlled with atorvastatin 80 mg and Zetia 10 mg. Last LDL 104. [facility] Medical History (Updated 11/19/24 @ 09:24 by Radha Chavira PA-C) Diabetes mellitus DM2 (diabetes mellitus, type 2) Pain of left thumb Right upper quadrant pain AC (acromioclavicular) arthritis Hypertension Elevated LFTs Osteoarthritis (arthritis due to wear and tear of joints) Physical exam Colon cancer screening Allergic reaction Back pain Right arm pain Vulvar irritation Encounter for annual routine gynecological examination Impacted cerumen of left ear Rash Lower back pain Abnormal laboratory test result Back pain Mild recurrent major depression Thyroid cancer Depression Anxiety Sacroiliac joint disease Lumbar spondylosis GERD without esophagitis Acquired hypothyroidism Benign essential hypertension Constipation Obesity (BMI 30-39.9) Dyslipidemia 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 Mother Diabetes Sister Lung cancer Brother H/O heart surgery Diabetes Son Epilepsy Social History Household Members: Significant Other Housing: Apartment Unable to assess alcohol history related to: Unknown Alcohol intake: never Patient Tobacco Use Status: Never used Tobacco e-Cigarette/Vaping Use: Never Used Second Hand Smoke Exposure: No service: No Current occupational status: disabled Gender identity: Female Cognitive needs: Yes Hearing needs: No Vision needs: No Female Reproductive History Menstrual Age of Menarche: 13 Physical Exam Vital Signs: Last Vital Signs Pulse 86 12/24/24 11:03 BP 136/82 12/24/24 11:03 Pulse Ox 98 12/24/24 11:03 Oxygen Delivery Method Room Air 12/24/24 11:03 BMI result Body Mass Index 39.7 Const Orientation/consciousness: patient oriented x3 HEENT Ears: hearing grossly normal bilaterally Neck Lymphatic: no lymphadenopathy noted Resp Auscultation: clear to auscultation bilaterally Cardio Rate: regular rate Rhythm: regular rhythm Heart sounds: S1 normal heart sound present and S2 normal heart sound present Skin General skin exam: no rashes or lesions noted Neuro General: patient oriented x3, gait normal and no focal motor deficits Results AMB Hemoglobin A1c AMB Hemoglobin A1c 8.1 % Last Edit by DOM Santana on 12/24/24 11:19 Results Reviewed Results Reviewed: Laboratory Last Values Glucose (Clinic) 174 mg/dL (60-115) H 12/24/24 11:09 Assessment & Plan Assessment & Plan (1) Uncontrolled type 2 diabetes mellitus with hyperglycemia, with long-term current use of insulin: Code(s): E11.65 - Type 2 diabetes mellitus with hyperglycemia; Z79.4 - adjunct faculty for medical terminology (current) use of insulin Category: Medical Plan: Increase Trulicity to 4.5 mg weekly Continue Lantus 25 units Continue metformin 500 mg twice a day at this point. We did reduce the dosage from a couple of months ago. Follow up in 3 months and recheck labs prior to that visit. (2) Dyslipidemia: Code(s): E78.5 - Hyperlipidemia, unspecified Category: Medical Plan: Continue current regimen (3) Benign essential hypertension: Code(s): I10 - Essential (primary) hypertension Category: Medical Plan: WNL Orders: Orders AMB Hemoglobin A1c Today E11.65 - Type 2 diabetes mellitus with hyperglycemia, Z79.4 - adjunct faculty for medical terminology (current) use of insulin Comprehensive [place]. Panel Fast Today E11.65 - Type 2 diabetes mellitus with hyperglycemia, E78.5 - Hyperlipidemia, unspecified, I10 - Essential (primary) hypertension, Z79.4 - jail (current) use of insulin Hemoglobin A1c Today E11.65 - Type 2 diabetes mellitus with hyperglycemia, E78.5 - Hyperlipidemia, unspecified, I10 - Essential (primary) hypertension, R73.01 - Impaired fasting glucose, Z79.4 - adjunct faculty for medical terminology (current) use of insulin Microalbumin, Random (w Creat) Today E11.65 - Type 2 diabetes mellitus with hyperglycemia, E78.5 - Hyperlipidemia, unspecified, I10 - Essential (primary) hypertension, Z79.4 - jail (current) use of insulin Medications: New dulaglutide (Trulicity) 4.5 mg (0.5 mL) subcut QWEEK 2 mL 5RF Coding Level of Care Code Est Pt Level 4 (30013) Complex EM visit Add On G2211 Diagnoses Uncontrolled type 2 diabetes mellitus with hyperglycemia, with long-term current use of insulin E11.65; Z79.4 Dyslipidemia E78.5 Benign essential hypertension I10
[2024-12-24 11:03] VITALS: BP 136/82; PULSE 86; O2SAT 98; BMI 39.7
[2024-12-24 11:15] LABS: Glucose, Whole Blood 174 mg/dL (60-115)
--- OUTSIDE RECORDS SUMMARY | 2024-12-24 11:53 | XMS_ITS | Clinical Summary ---
Author Organization [employer] Address [address] [place] [address] [address] [place] [address] Care Team Providers Care Tax Investigator Name Role Phone Unavailable Primary Care Provider Unavailabl e Immunizations Immunization Administration Dates Next Due Pfizer Covid-19 Vaccine [...] patient's age to complete this topic Meningococcal B Vaccine Aged Out No l onger eligible based on patient's age to complete [...]
== END 2024-12-24 11:23 | disposition home or self-care (01) ==
LOC: HO.ENCR 10:59
PROVIDERS: PCP Internal Medicine; Visit Provider Physician Assistant
DX: E11.65 Type 2 diabetes mellitus with hyperglycemia (principal); Z79.4 Long term (current) use of insulin; E78.5 Hyperlipidemia, unspecified; I10 Essential (primary) hypertension

== ENCOUNTER → 2024-12-24 10:59 | Outpatient (BNVA) | payer OTHER, SELFPAY | PROVIDERS: PCP Internal Medicine; Visit Provider Physician Assistant | DX: E11.65 Type 2 diabetes mellitus with hyperglycemia (principal); I10 Essential (primary) hypertension; E78.5 Hyperlipidemia, unspecified; K21.9 Gastro-esophageal reflux disease without esophagitis; F32.A Depression, unspecified; F41.9 Anxiety disorder, unspecified; M25.50 Pain in unspecified joint; E66.9 Obesity, unspecified; Z79.4 Long term (current) use of insulin; Z68.39 Body mass index [BMI] 39.0-39.9, adult | CPT/HCPCS: 82947; 83036; 99212 ==

== ENCOUNTER 2024-12-28 12:01 | Emergency (ER) | payer OTHER, SELFPAY ==
--- NOTE | 2024-12-28 | ECG_ITS ---
Test Reason : CP Blood Pressure : */* mmHG Vent. Rate : 76 BPM Atrial Rate : 76 BPM P-R Int : 254 ms QRS Dur : 84 ms QT Int : 368 ms P-R-T Axes : 44 -2 46 degrees QTcB Int : 414 ms Sinus rhythm with 1st degree A-V block Minimal voltage criteria for LVH, may be normal variant ( R in aVL ) Borderline ECG When compared with ECG of 09-Oct-2023 10:31, DE interval has increased Referred By: Generic ED Physician Electronically Signed By: GURU MCHUGH
[2024-12-28 12:13] VITALS: BMI 34.3
[2024-12-28 12:36] VITALS: BP 167/71; PULSE 102; RESP 17; TEMP 35.8; O2SAT 99
[2024-12-28 12:51] LABS: MANUAL DIFF FLAG NO
[2024-12-28 12:53] LABS: Basophils Percent Auto 0.8 % (0-2); Eosinophils Absolute Auto 0.2 X10*3/uL (0.0-0.4); Eosinophils Percent Auto 3.8 % (0-4); Hematocrit 32.9 % (37.0-47.0); Imm Gran Abs Auto 0.01 X10*3/uL (0.00-0.03); Imm Gran Pct Auto 0.2 % (0.0-0.4); Lymphocytes Absolute Auto 1.5 X10*3/uL (1.2-4.9); Mean Corpuscular HGB Conc 33.4 g/dl (31.0-35.0); Mean Corpuscular Hemoglobin 28.9 pg (27.0-33.0); Mean Corpuscular Volume 86.6 fL (80.0-98.0); Mean Platelet Volume 12.3 fL (9.4-12.3); Monocytes Absolute Auto 0.5 X10*3/uL (0.1-1.2); Monocytes Percent Auto 9.7 % (2-11); Neutrophils Absolute Auto 2.8 x10*3/uL (2.0-8.3); Neutrophils Percent Auto 55.5 % (45-73); Platelet Count 166 X10*3/uL (160-400)
[2024-12-28 13:16] LABS: Anion Gap 11 (12-20); Blood Urea Nitrogen 26 mg/dL (9-16); Calcium 9.2 mg/dL (8.4-10.2); Carbon Dioxide 27 mmol/L (22-29); Chloride 107 mmol/L (96-108); Creatinine Clr Calc Pharmacy 80.4; Estimated Glomerular Filt Rate > 60; Glucose Random 171 mg/dL (60-115); Potassium 4.4 mmol/L (3.3-5.1); Sodium 141 mmol/L (135-145)
[2024-12-28 13:19] LABS: Troponin-I High Sensitivity < 2.7 ng/L (<3.5-17.0)
--- NOTE | 2024-12-28 13:50 | ED.CHESTPAIN ---
HPI - Chest Pain General Chief Complaint: Chest Pain Stated Complaint: HIGH BP 201/P, PALPITATIONS X2D PER EMS Time Seen by Provider: 12/28/24 12:58 History of Present Illness HPI narrative: Patient is a 69-year-old female presents today with having hypertension. Patient denies having any chest pain. There is no shortness of breath there is no diaphoresis was noted to have an elevated blood pressure of 200/100 at home. Patient's baseline is on hypertensive medication. The dose of which is unchanged. Has a history of diabetes. Patient is on hydrochlorothiazide. Losartan. No chest pain or diaphoresis no weakness. Sent in because of elevated blood pressure. Patient has an appointment with her primary physician tomorrow Related Data Home Medications ?Medication ?Instructions ?Recorded ?Confirmed clobetasol 0.05 % topical ointment 1 appl topical DAILY 04/02/22 12/24/24 azelastine 137 mcg (0.1 %) nasal 1 spray intranasal BID 07/02/22 12/24/24 spray betamethasone valerate 0.1 % 1 appl topical BID 07/02/22 12/24/24 topical cream ketotifen fumarate 0.025 % (0.035 0 drp ophthalmic (eye) 07/02/22 12/24/24 %) eye drops tacrolimus 0.1 % topical ointment topical 11/26/22 12/24/24 ramelteon 8 mg tablet 8 mg PO DAILY 12/27/22 12/24/24 mirabegron 50 mg tablet,extended 50 mg PO DAILY 10/17/23 12/24/24 release 24 hr (Myrbetriq) escitalopram oxalate 5 mg tablet 5 mg PO DAILY 11/10/24 12/24/24 levothyroxine 175 mcg tablet 175 mcg PO DAILY 11/10/24 12/24/24 (Synthroid) Previous Rx's ?Medication ?Instructions ?Recorded white petrolatum 41 % topical 1 appl topical DAILY PRN dry skin 10/31/21 ointment (Aquaphor Healing) 2 weeks #20 grams lidocaine 5 % topical patch 1 patch topical DAILY PRN pain #30 11/12/22 (Lidoderm) ea disposable gloves (Biobrane Gloves #100 ea 12/31/22 Large) adult diapers #240 ea 01/07/23 underpads (Bed Underpads) #150 ea 01/07/23 wipes #200 ea 01/07/23 silver sulfadiazine 1 % topical 1 appl topical DAILY #50 grams 06/17/23 cream (Silvadene) powerseat lift chair #1 ea 06/25/23 cyclobenzaprine 5 mg tablet 5 mg PO TID PRN muscle spasm #10 10/09/23 tabs bisacodyl 5 mg tablet,delayed See Rx Instructions PO BEDTIME 2 10/17/23 release (Dulcolax (bisacodyl)) days #8 tabs dicyclomine 20 mg tablet 20 mg PO TID 30 days #90 tabs 10/17/23 plecanatide 3 mg tablet (Trulance) 3 mg PO DAILY #30 tabs 10/17/23 sodium,potassium,mag sulfates 17.5 480 ml PO .COMPLEX #354 mL 10/17/23 gram-3.13 gram-1.6 gram oral soln (Suprep Bowel Prep Kit) shower head #1 ea 12/01/23 toilet seat elevator #1 ea 12/01/23 carbamide peroxide 6.5 % ear drops 5 drp otic (ears) DAILY 4 days #15 12/25/23 (Debrox) mL air conditioner #1 ea 01/26/24 diclofenac sodium 1 % topical gel 2 g topical QID 1 month #100 grams 04/30/24 commode (bedside commode) #1 ea 06/01/24 hydrocortisone 1 % topical cream 1 appl topical BID PRN skin 06/01/24 (Anti-Itch (hydrocortisone)) irritation 2 weeks #28.4 grams ibuprofen 400 mg tablet 400 mg PO Q8H PRN pain 30 days #90 06/11/24 tabs atorvastatin 80 mg tablet 80 mg PO BEDTIME 90 days #90 tabs 07/13/24 ezetimibe 10 mg tablet 10 mg PO DAILY 90 days #90 tabs 07/13/24 humidifiers #1 ea 07/13/24 losartan 100 mg tablet 100 mg PO DAILY 90 days #90 tabs 07/13/24 pillow #1 ea 07/13/24 tramadol 50 mg tablet 50 mg PO BID PRN pain #10 tabs 08/15/24 hydrochlorothiazide 25 mg tablet 25 mg PO DAILY 90 days #90 tabs 08/27/24 blood sugar diagnostic (FreeStyle #100 ea 09/20/24 Lite Strips) blood-glucose meter (FreeStyle #1 ea 09/20/24 Lite Meter kit) glucose 4 gram chewable tablet 16 g (4 x 4 gram) PO Q15M PRN 09/20/24 (Dex4 Glucose) hypoglycemia #100 tabs lancets 28 gauge (FreeStyle #100 ea 09/20/24 Lancets) omeprazole 20 mg capsule,delayed 20 mg PO DAILY 90 days #90 caps 10/08/24 release acetaminophen 500 mg tablet 500 mg PO Q6H PRN fever or pain 30 11/07/24 (Tylenol Extra Strength) days #120 tabs compression stockings #1 ea 11/10/24 lidocaine 5 % topical patch 1 patch topical DAILY #15 ea 11/13/24 oxycodone 5 mg tablet 5 mg PO Q6H PRN pain #15 tabs 11/13/24 diphenhydramine HCl 25 mg capsule 25 mg PO BEDTIME PRN allergic 11/17/24 (Banophen) reaction 30 days #20 caps Lantus Solostar U-100 Insulin 100 25 unit (0.25 mL) subcut DAILY #15 11/19/24 unit/mL (3 mL) subcutaneous pen mL (insulin glargine) metformin 500 mg tablet 500 mg PO BID #180 tabs 11/19/24 pen needle, diabetic 32 gauge x 1 ea subcut DAILY #30 ea 11/19/24 triamcinolone acetonide 0.025 % 1 appl topical BID 7 days #15 grams 11/19/24 topical cream cane #1 ea 11/22/24 montelukast 10 mg tablet 10 mg PO DAILY 30 days #30 tabs 11/27/24 meloxicam 15 mg tablet 15 mg PO DAILY #30 tabs 12/06/24 dulaglutide 4.5 mg/0.5 mL 4.5 mg (0.5 mL) subcut QWEEK #2 mL 12/24/24 subcutaneous pen injector ([facility]) Allergies Allergy/AdvReac Type Severity Reaction Status Date / Time enalapril [ENALAPRIL] Allergy Intermediate Cough Verified 12/28/24 12:25 cephalexin [From KEFLEX] Allergy Mild rash Verified 12/28/24 12:25 ciprofloxacin [CIPROFLOXACIN] Allergy Mild HIVES,RASH Verified 12/28/24 12:25 levothyroxine sodium Allergy Mild RASH WITH Verified 12/28/24 12:25 [LEVOTHYROXINE SODIUM] GENERIC MED nitrofurantoin Allergy Mild RASH Verified 12/28/24 12:25 [NITROFURANTOIN] Penicillins [PENICILLINS] Allergy Mild RASH Verified 12/28/24 12:25 sulfamethoxazole Allergy Mild rash Verified 12/28/24 12:25 [From BACTRIM] trimethoprim [From BACTRIM] Allergy Mild rash Verified 12/28/24 12:25 corn Allergy Itching Verified 12/28/24 12:25 ALL GENERIC MEDS Allergy Mild Rash Uncoded 12/28/24 12:25 SHRIMP Allergy Unknown Unknown Uncoded 12/28/24 12:25 Review of Systems Review of Systems: no fever no chills no chest pain or shortness breath no diaphoresis Yes all other systems are reviewed and are negative [facility] Past Medical History Attestation statement: The following information was validated with the patient. Medical History Diabetes mellitus DM2 (diabetes mellitus, type 2) Pain of left thumb Right upper quadrant pain AC (acromioclavicular) arthritis Hypertension Elevated LFTs Osteoarthritis (arthritis due to wear and tear of joints) Physical exam Colon cancer screening Allergic reaction Back pain Right arm pain Vulvar irritation Encounter for annual routine gynecological examination Impacted cerumen of left ear Rash Lower back pain Abnormal laboratory test result Back pain Mild recurrent major depression Thyroid cancer Depression Anxiety Sacroiliac joint disease Lumbar spondylosis GERD without esophagitis Acquired hypothyroidism Benign essential hypertension Constipation Obesity (BMI 30-39.9) 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 Mother Diabetes Sister Lung cancer Brother H/O heart surgery Diabetes Son Epilepsy Social History Social History Household Members: Significant Other Housing: Apartment Unable to assess alcohol history related to: Unknown Alcohol intake: never Patient Tobacco Use Status: Never used Tobacco Smoked in Last 30 Days: No e-Cigarette/Vaping Use: Never Used Second Hand Smoke Exposure: No Advance Directives: No Advance Directives Information Provided: Yes Do you have a plan to hurt others: No Plan service: No Current occupational status: disabled Gender identity: Female Cognitive needs: Yes Hearing needs: No Vision needs: No Physical Exam Vital Signs: Vital Signs: Last Vital Signs Temp 96.5 F L 12/28/24 12:36 Pulse 102 H 12/28/24 12:36 Resp 17 12/28/24 12:36 BP 167/71 H 12/28/24 12:36 Pulse Ox 99 12/28/24 12:36 O2 Del Method Room Air 12/28/24 12:36 BMI result Body Mass Index 34.3 Appearance: Alert. Oriented X3. No acute distress. Eyes: Pupils equal, round and reactive to light. ENT: Pharynx normal. Neck: Normal inspection. Neck supple. No lymph nodes noted. No crepitus CVS: Normal heart rate and rhythm. Pulses normal. Normal S1 and S2 Respiratory: No respiratory distress. Breath sounds normal. No Wheezing. No rales Abdomen: Soft and nontender. No rigidity. No distention. good BS x4 Skin: Skin warm and dry. Normal skin color. Normal skin turgor. Extremities: No lower extremity edema. Neurovascular intact to all extremities. No Lacerations. No Rash Neuro: Oriented X 3. No motor deficit. No sensory deficit. Moving all extermities. No slurred speech Medical Decision Making Medical Decision Making [facility] Narrative: Patient well appearing no acute distress. My interpretation patient's EKG showed a sinus rhythm heart rate is 80 VA QRS QTC normal no acute ST segment elevation noted. Troponin is negative electrolytes are unremarkable has no chest pain. Hemoglobin is baseline. Patient to be discharged home. Close follow-up on an outpatient basis. Differential Diagnosis Differential Diagnoses: The differential diagnosis associated with the presentation includes Hypertension Admission/Observation Consideration of admission/observation: Escalation of care including admission/observation considered Lab Data [facility] Lab Attestation statement: I reviewed the patient's lab results. 12/28/24 12:47 12/28/24 12:47 Labs: Lab Results 12/28/24 Range/Units 12:47 WBC 5.0 (4.8-10.8) X10*3/uL RBC 3.80 L (4.20-5.50) X10*6/uL Hgb 11.0 L (12.0-16.0) g/dl Hct 32.9 L (37.0-47.0) % MCV 86.6 (80.0-98.0) fL MCH 28.9 (27.0-33.0) pg MCHC 33.4 (31.0-35.0) g/dl RDW 13.0 (11.0-16.0) % Plt Count 166 (160-400) X10*3/uL MPV 12.3 (9.4-12.3) fL Immature Gran % (Auto) 0.2 (0.0-0.4) % Neut % (Auto) 55.5 (45-73) % Lymph % (Auto) 30.0 (20-40) % Churchill % (Auto) 9.7 (2-11) % Eos % (Auto) 3.8 (0-4) % Baso % (Auto) 0.8 (0-2) % Lymph # (Auto) 1.5 (1.2-4.9) X10*3/uL Churchill # (Auto) 0.5 (0.1-1.2) X10*3/uL Eos # (Auto) 0.2 (0.0-0.4) X10*3/uL Baso # (Auto) 0.0 (0.0-0.2) X10*3/uL Abs Immat Gran (auto) 0.01 (0.00-0.03) X10*3/uL Absolute Neuts (auto) 2.8 (2.0-8.3) x10*3/uL Absolute Nucleated RBC 0.000 (0.0-0.012) X10*3/uL Nucleated RBC % (auto) 0.0 (0.0-0.2) /100WBC Sodium 141 (135-145) mmol/L Potassium 4.4 (3.3-5.1) mmol/L Chloride 107 (96-108) mmol/L Carbon Dioxide 27 (22-29) mmol/L Anion Gap 11 L (12-20) BUN 26 H (9-16) mg/dL Creatinine 0.71 (0.5-1.4) mg/dL Estim Creat Clear Calc 80.4 Estimated GFR > 60 Random Glucose 171 H (60-115) mg/dL Calcium 9.2 (8.4-10.2) mg/dL Troponin I High Sens < 2.7 (<3.5-17.0) ng/L Independent Interpretation I performed an independent interpretation of an: EKG ( sinus heart rate is 80 VA QRS QTC normal no acute ST segment elevation) External Record Review External record reviewed: Inpatient record Chronic Conditions Patient?s care impacted by: Diabetes and Hypertension Social Determinants Patient?s care significantly limited by Social Determinants of Health including: Problems related to primary support group Discharge Plan Discharge Clinical Impression: Essential hypertension Patient Disposition: Home, Self-Care Instructions: Hypertension (ED) Prescriptions: No Action Aquaphor Healing 41 % ointment 1 appl topical DAILY PRN (Reason: dry skin) 14 Days Qty: 20 0RF (DME) disposable gloves [Biobrane Gloves Large] Misc See Rx Instructions .Route Qty: 100 6RF Rx Instructions: As directed (DME) adult diapers large See Rx Instructions .Route .MEDSUPPLY Qty: 240 11RF Rx Instructions: As directed (DME) underpads [Bed Underpads] Pad See Rx Instructions .Route Qty: 150 11RF Rx Instructions: Use 1 to 3 once a day prn (DME) wipes See Rx Instructions .Route .MEDSUPPLY Qty: 200 11RF Rx Instructions: As directed (DME) powerseat lift chair See Rx Instructions .Route .MEDSUPPLY Qty: 1 0RF Rx Instructions: As directed (DME) shower head See Rx Instructions .Route .MEDSUPPLY Qty: 1 0RF Rx Instructions: As directed (DME) toilet seat elevator See Rx Instructions .Route .MEDSUPPLY Qty: 1 0RF Rx Instructions: As directed (DME) air conditioner See Rx Instructions .Route .MEDSUPPLY Qty: 1 0RF Rx Instructions: As directed diclofenac sodium 1 % gel 2 g topical QID 30 Days Qty: 100 4RF Rx Instructions: apply to single elbow, wrist or hand; for hand includes palm/fingers/back of hand (DME) bedside commode Kit See Rx Instructions .Route Qty: 1 0RF Rx Instructions: As directed hydrocortisone [Anti-Itch (HC)] 1 % cream 1 appl topical BID PRN (Reason: skin irritation) 14 Days Qty: 28.4 0RF ibuprofen 400 mg tablet 400 mg PO Q8H PRN (Reason: pain) 30 Days Qty: 90 0RF tramadol 50 mg tablet 50 mg PO BID PRN (Reason: pain) Qty: 10 0RF hydrochlorothiazide 25 mg tablet 25 mg PO DAILY 90 Days Qty: 90 4RF omeprazole 20 mg capsule,delayed release(DR/EC) 20 mg PO DAILY 90 Days Qty: 90 0RF acetaminophen [Tylenol Extra Strength] 500 mg tablet 500 mg PO Q6H PRN (Reason: fever or pain) 30 Days Qty: 120 2RF lidocaine 5 % adhesive patch,medicated 1 patch topical DAILY Qty: 15 0RF Rx Instructions: leave on most painful area for up to 12 hrs diphenhydramine HCl [Banophen] 25 mg capsule 25 mg PO BEDTIME PRN (Reason: allergic reaction) 30 Days Qty: 20 2RF (DME) cane Device See Rx Instructions .Route Qty: 1 0RF Rx Instructions: As directed montelukast 10 mg tablet 10 mg PO DAILY 30 Days Qty: 30 3RF meloxicam 15 mg tablet 15 mg PO DAILY Qty: 30 2RF lidocaine [Lidoderm] 5 % adhesive patch,medicated 1 patch topical DAILY MDD remove after 12 hours PRN (Reason: pain) Qty: 30 0RF Rx Instructions: leave on most painful area for up to 12 hrs cyclobenzaprine 5 mg tablet 5 mg PO TID PRN (Reason: muscle spasm) Qty: 10 0RF oxycodone 5 mg tablet 5 mg PO Q6H PRN (Reason: pain) Qty: 15 0RF Rx Instructions: partial filing upon pt request; Partial Fill upon patient request. silver sulfadiazine [Silvadene] 1 % cream 1 appl topical DAILY Qty: 50 0RF Rx Instructions: apply a 1.5 mm thickness Debrox 6.5 % drops 5 drp otic (ears) DAILY 4 Days Qty: 15 0RF clobetasol 0.05 % ointment 1 appl topical DAILY Rx Instructions: Use daily for 2 weeks, then every other day for 2 wks, then twice a week azelastine 137 mcg (0.1 %) aerosol,spray 1 spray intranasal BID betamethasone valerate 0.1 % cream 1 appl topical BID ketotifen fumarate 0.025 % (0.035 %) drops 0 drp ophthalmic (eye) tacrolimus 0.1 % ointment topical ramelteon 8 mg tablet 8 mg PO DAILY Myrbetriq 50 mg tablet extended release 24 hr 50 mg PO DAILY Trulance 3 mg tablet 3 mg PO DAILY Qty: 30 6RF dicyclomine 20 mg tablet 20 mg PO TID 30 Days Qty: 90 1RF sodium,potassium,mag sulfates [Suprep Bowel Prep Kit] 17.5-3.13-1.6 gram recon soln 480 ml PO .COMPLEX Qty: 354 0RF Rx Instructions: 480 mL orally; bisacodyl [Dulcolax (bisacodyl)] 5 mg tablet,delayed release (DR/EC) See Rx Instructions PO BEDTIME 2 Days Qty: 8 0RF Rx Instructions: Take 2 tabs twie a day 2 days before procedure and 2 tabs am of procedure orally bedtime; (DME) FreeStyle Lite Strips Strip See Rx Instructions .Route Qty: 100 6RF Rx Instructions: As directed tests 2X/day (DME) blood-glucose meter [FreeStyle Lite Meter] Kit See Rx Instructions .Route Qty: 1 0RF Rx Instructions: As directed (DME) lancets [FreeStyle Lancets] 28 gauge misc See Rx Instructions .ROUTE .MEDSUPPLY Qty: 100 3RF Rx Instructions: use BID as directed to check blood glucose glucose [Dex4 Glucose] 4 gram tablet,chewable 16 g PO Q15M PRN (Reason: hypoglycemia) Qty: 100 0RF Rx Instructions: until symptoms of low blood sugar are controlled pen needle, diabetic 32 gauge x 5/32 needle 1 ea subcut DAILY Qty: 30 11RF metformin 500 mg tablet 500 mg PO BID Qty: 180 3RF triamcinolone acetonide 0.025 % cream 1 appl topical BID 7 Days Qty: 15 1RF insulin glargine [Lantus Solostar U-100 Insulin] 100 unit/mL (3 mL) insulin pen 25 unit subcut DAILY Qty: 15 5RF atorvastatin 80 mg tablet 80 mg PO BEDTIME 90 Days Qty: 90 1RF ezetimibe 10 mg tablet 10 mg PO DAILY 90 Days Qty: 90 1RF losartan 100 mg tablet 100 mg PO DAILY 90 Days Qty: 90 1RF (DME) humidifiers Misc See Rx Instructions .Route Qty: 1 0RF Rx Instructions: As directed (DME) pillow See Rx Instructions .Route .MEDSUPPLY Qty: 1 0RF Rx Instructions: As directed escitalopram oxalate 5 mg tablet 5 mg PO DAILY levothyroxine [Synthroid] 175 mcg tablet 175 mcg PO DAILY (DME) compression stockings See Rx Instructions .Route .MEDSUPPLY Qty: 1 0RF Rx Instructions: As directed Trulicity 4.5 mg/0.5 mL pen injector 4.5 mg subcut QWEEK Qty: 2 5RF Referrals: Lan Galvan MD [Primary Care Provider] - 12/28/24 Print Language: Tamazight
[2024-12-28 14:05] VITALS: BP 143/77; PULSE 75; RESP 20; TEMP 36.8; O2SAT 99
[2024-12-28 14:16] VITALS: BP 138/72; PULSE 55; RESP 17; TEMP 36.1; O2SAT 95
== END 2024-12-28 14:57 | disposition home or self-care (01) ==
PROVIDERS: Emergency Provider Emergency Medicine Emergency Medical Services; PCP Student in an Organized Health Care Education/Training Program
DX: I10 Essential (primary) hypertension (principal); I44.0 Atrioventricular block, first degree; E11.9 Type 2 diabetes mellitus without complications; E78.5 Hyperlipidemia, unspecified; K75.81 Nonalcoholic steatohepatitis (NASH); Z79.84 Long term (current) use of oral hypoglycemic drugs; Z79.4 Long term (current) use of insulin; Z79.85 Long-term (current) use of injectable non-insulin antidiabetic drugs
CPT/HCPCS: 36415; 80048; 84484; 85025; 93005; 99283; 99285

== ENCOUNTER → 2024-12-28 12:52 | Outpatient (BNV) | payer OTHER, SELFPAY | PROVIDERS: Emergency Provider Emergency Medicine Emergency Medical Services; PCP Student in an Organized Health Care Education/Training Program; Visit Provider Internal Medicine | DX: I44.0 Atrioventricular block, first degree (principal) | CPT/HCPCS: 93010 ==

== ENCOUNTER 2024-12-29 10:57 | Outpatient (AMB) | payer OTHER, SELFPAY ==
--- OUTSIDE RECORDS SUMMARY | 2024-12-29 11:54 | XMS_ITS | Clinical Summary ---
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
--- NOTE | 2024-12-29 12:13 | MHC.PC.OV ---
Vital Signs 12/29/24 12:14 Height 5 ft 4 in Weight 242 lb BMI 41.5 BP 160/86 H Blood Pressure Location Lt brachial Position Sitting Intake Visit Reasons: PE Intake Note: Patient here for a physical exam Emergency Planner Required: No Accompanied by: Self / Same As Patient Allergies enalapril [ENALAPRIL] Allergy (Intermediate, Verified 12/29/24 12:39) Cough cephalexin [From KEFLEX] Allergy (Mild, Verified 12/29/24 12:39) rash ciprofloxacin [CIPROFLOXACIN] Allergy (Mild, Verified 12/29/24 12:39) HIVES,RASH levothyroxine sodium [LEVOTHYROXINE SODIUM] Allergy (Mild, Verified 12/29/24 12:39) RASH WITH GENERIC MED nitrofurantoin [NITROFURANTOIN] Allergy (Mild, Verified 12/29/24 12:39) RASH Penicillins [PENICILLINS] Allergy (Mild, Verified 12/29/24 12:39) RASH sulfamethoxazole [From BACTRIM] Allergy (Mild, Verified 12/29/24 12:39) rash trimethoprim [From BACTRIM] Allergy (Mild, Verified 12/29/24 12:39) rash corn Allergy (Verified 12/29/24 12:39) Itching ALL GENERIC MEDS Allergy (Mild, Uncoded 12/29/24 12:39) Rash SHRIMP Allergy (Unknown, Uncoded 12/29/24 12:39) Unknown Medication List - Last Reconciled 12/29/24 by Yael Talbot MD acetaminophen (Tylenol Extra Strength) 500 mg PO Q6H PRN 30 days [adult diapers As directed] [air conditioner As directed] atorvastatin 80 mg PO BEDTIME 90 days azelastine 1 spray intranasal BID blood sugar diagnostic (FreeStyle Lite Strips) As directed tests 2X/day blood-glucose meter (FreeStyle Lite Meter kit) As directed cane As directed commode (bedside commode) As directed [compression stockings As directed] diclofenac sodium 1% 2 grams topical QID 1 month dicyclomine 20 mg PO TID 30 days diphenhydramine HCl (Banophen) 25 mg PO BEDTIME PRN 30 days disposable gloves (Biobrane Gloves Large) As directed dulaglutide (Trulicity) 4.5 mg (0.5 mL) subcut QWEEK escitalopram oxalate 5 mg PO DAILY ezetimibe 10 mg PO DAILY 90 days glucose (Dex4 Glucose) 16 grams (4 x 4 gram) PO Q15M PRN humidifiers As directed hydrochlorothiazide 25 mg PO DAILY 90 days NS ibuprofen 400 mg PO Q8H PRN 30 days lancets (FreeStyle Lancets) use BID as directed to check blood glucose Lantus Solostar U-100 Insulin (insulin glargine) 25 units (0.25 mL) subcut DAILY NS levothyroxine (Synthroid) 175 mcg PO DAILY lidocaine 5% 1 patch topical DAILY losartan 100 mg PO DAILY 90 days meloxicam 15 mg PO DAILY metformin 500 mg PO BID mirabegron ER (Myrbetriq) 50 mg PO DAILY montelukast 10 mg PO DAILY 30 days omeprazole 20 mg PO DAILY 90 days pen needle, diabetic 1 ea subcut DAILY [pillow As directed] plecanatide (Trulance) 3 mg PO DAILY [powerseat lift chair As directed] ramelteon 8 mg PO DAILY [shower head As directed] [toilet seat elevator As directed] triamcinolone acetonide 0.025% 1 appl topical BID 7 days underpads (Bed Underpads) Use 1 to 3 once a day prn [wipes As directed] Tobacco use date assessed: 11/10/24 Fall risk assessment: No Falls in past year Last assessed Fall Risk: 12/29/24 Dental Screening Dental Screen Date: 11/10/24 HPI HPI Comments History of Present Illness Details The patient is a 69-year-old female presenting with essential hypertension. She experienced elevated blood pressure prompting a recent emergency room visit. She has been unable to achieve optimal blood pressure control despite current antihypertensive therapy, which includes hydrochlorothiazide and losartan, and reported no weight pain or shortness of breath. Her diabetes management shows suboptimal control with a hemoglobin A1C of 8.1% recorded in the past three months. No recent changes to the diabetes medication regimen were noted, and endocrinology oversees her diabetes management. The patient experiences chronic back pain and requires the use of a wheeled walker for mobility. She reported no chest pain recently, and a review of an earlier electrocardiogram indicated a first degree AV block, which was not deemed significant. She also has claudication of both lower limbs. Will benefit from having a walker and a shower head. She is morbidly obese with a BMI of 41.5 and was advised to do diet and exercise to reach BMI goal less than 30. She also has mild recurrent major depression follow by Psychiatry stable with medications. [facility] Medical History Diabetes mellitus DM2 (diabetes mellitus, type 2) Pain of left thumb Right upper quadrant pain AC (acromioclavicular) arthritis Hypertension Elevated LFTs Osteoarthritis (arthritis due to wear and tear of joints) Physical exam Colon cancer screening Allergic reaction Back pain Right arm pain Vulvar irritation Encounter for annual routine gynecological examination Impacted cerumen of left ear Rash Lower back pain Abnormal laboratory test result Back pain Mild recurrent major depression Thyroid cancer Depression Anxiety Sacroiliac joint disease Lumbar spondylosis GERD without esophagitis Acquired hypothyroidism Benign essential hypertension Constipation Obesity (BMI 30-39.9) 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 Mother Diabetes Sister Lung cancer Brother H/O heart surgery Diabetes Son Epilepsy Social History Household Members: Significant Other Housing: Apartment Unable to assess alcohol history related to: Unknown Alcohol intake: never Patient Tobacco Use Status: Never used Tobacco e-Cigarette/Vaping Use: Never Used Second Hand Smoke Exposure: No service: No Current occupational status: disabled Gender identity: Female Cognitive needs: Yes Hearing needs: No Vision needs: No Female Reproductive History Menstrual Age of Menarche: 13 Questionnaire Thrive Questionnaire Date Thrive assessed: 11/10/24 DENIS-7 AMB Questionnaire DENIS-7 Date DENIS - 7 assessed: 11/10/24 Source: Developed by Drs. Leland Gregorio, Elda Quinteros, Lamin Pierre and colleagues, with an educational edilberto from [employer]. Review of Systems Const All systems reviewed & are unremarkable except as noted in HPI and below Card Denies chest pain at rest, Denies chest pain with activity, Denies edema, Denies irregular heart rhythm, Denies claudication, Denies dyspnea, Denies dyspnea on exertion, Denies orthopnea, Denies paroxysmal nocturnal dyspnea and Denies slow heart rate Resp Denies cough, Denies dyspnea and Denies dyspnea on exertion GI Denies abdominal pain, Denies change in bowel habits, Denies excessive flatus, Denies nausea and Denies vomiting Denies urinary incontinence, Denies urinary hesitancy and Denies urinary urgency Neuro Denies lack of coordination Physical exam (Primary Care) Vital Signs: Last Vital Signs BP 160/86 H 12/29/24 12:14 BMI result Body Mass Index 41.5 BMI Assessment/Plan discussion: High BMI High, discussed plan: lifestyle, weight reduction, dietary and physical activity Tobacco/Smoking Status: Tobacco use Status Tobacco use date assessed 11/10/24 12/29/24 12:25 Patient Tobacco Use Status Never used Tobacco 12/29/24 12:25 e-Cigarette/Vaping Use Never Used 12/29/24 12:25 Thrive Assessment: Date of Thrive Assessment Date Thrive assessed 11/10/24 12/29/24 12:25 Resp Effort & Inspection: normal respiratory effort Auscultation: clear to auscultation bilaterally Cardio Jugular venous distension: no JVD Rate: regular rate Rhythm: regular rhythm Heart sounds: S1 normal heart sound present and S2 normal heart sound present Extrem General: Yes full ROM Coding Level of Care Code Est Pt Level 4 (72901) Complex EM visit Add On G2211 Diagnoses Uncontrolled type 2 diabetes mellitus with hyperglycemia, with long-term current use of insulin E11.65; Z79.4 Thyroid cancer C73 Mild recurrent major depression F33.0 Essential hypertension I10 Claudication of both lower extremities I73.9 Time Spent (min) 23 Assessment & Plan Assessment & Plan (1) Uncontrolled type 2 diabetes mellitus with hyperglycemia, with long-term current use of insulin: Code(s): E11.65 - Type 2 diabetes mellitus with hyperglycemia; Z79.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 Cholesterol and thyroid function tests are recommended, as recent levels were not available. I counseled her on diabetes management, emphasizing lifestyle adjustments for better glycemic control. Current treatment for chronic back pain will continue, with Tylenol as needed. We will monitor the non-significant first degree AV block, with understanding from the patient on these management strategies and goals. Patient was informed and verbally consented to the use of an ambient scribe for clinic note documentation during this visit. I discussed the addition of amlodipine to her current hypertension regimen to address her persistently elevated blood pressure. We reviewed the importance of monitoring her blood pressure after the medication adjustment. I stressed weight management and physical activity's role in improving diabetes control and reminded her to follow up with endocrinology. We also talked about completing laboratory tests for cholesterol and thyroid evaluation this week, given the absence of recent results. I highlighted when to seek care if her symptoms change. Orders: Orders Thyroid Stimulating Hormone Today C73 - Malignant neoplasm of thyroid gland Lipid Panel Today E78.5 - Hyperlipidemia, unspecified Medications: New amlodipine 5 mg PO DAILY 90 days 90 tabs 1RF walker with seat and wheels 1 ea 0RF I73.9 - Peripheral vascular disease, unspecified Patient Instructions: - Take amlodipine 5 mg once daily in the morning. - Schedule lab tests this week for cholesterol and thyroid evaluation. - Monitor blood pressure at home and record readings. - Follow up in three weeks for blood pressure review. - Maintain a healthy diet and regular exercise routine. - Continue current medications as prescribed. - Seek medical attention for new or worsening symptoms.
[2024-12-29 12:14] VITALS: BP 160/86; BMI 41.5
== END 2024-12-29 12:49 | disposition home or self-care (01) ==
LOC: HO.HMCH 10:57
PROVIDERS: PCP Student in an Organized Health Care Education/Training Program; Visit Provider Internal Medicine
DX: E11.65 Type 2 diabetes mellitus with hyperglycemia (principal); Z79.4 Long term (current) use of insulin; C73 Malignant neoplasm of thyroid gland; F33.0 Major depressive disorder, recurrent, mild; I10 Essential (primary) hypertension; I73.9 Peripheral vascular disease, unspecified

== ENCOUNTER → 2024-12-29 10:57 | Outpatient (BNVA) | payer OTHER, SELFPAY | PROVIDERS: PCP Student in an Organized Health Care Education/Training Program; Visit Provider Internal Medicine | DX: Z13.89 Encounter for screening for other disorder (principal) | CPT/HCPCS: 99212 ==

== ENCOUNTER 2024-12-29 16:33 | Emergency (ER) | payer OTHER, SELFPAY ==
[2024-12-29] VITALS (10 sets, daily range): BP systolic 134–199; BP diastolic 41–85; PULSE 54–90; RESP 14–19; TEMP 35.9–36.6; O2SAT 96–100; BMI 41.8
--- NOTE | ~2024-12-29 | CT_ITS ---
CLINICAL HISTORY: HTN headache CT head without contrast Comparison: None Findings: Right inferior cerebellar hemisphere small area of hypodensity concerning for recent infarct. No acute intracranial hemorrhage. No significant atrophy-like change or white matter disease. The visualized paranasal sinuses and mastoid air cells are normal. The orbits are unremarkable. Partial empty sella configuration. No skull fracture. IMPRESSION: 1. Right inferior cerebellar hemisphere small area of hypodensity concerning for recent infarct. MRI brain without contrast can be obtained for further evaluation if clinically appropriate. 2. Partial empty sella configuration. This document has been electronically signed by: Vijay Cee MD on 12/29/2024 18:48:17
--- NOTE | ~2024-12-29 | MR_ITS ---
CLINICAL HISTORY: infarct on CT subacute MR Brain without gadolinium Comparison: CT/SR - CT HEAD/BRAIN WO IV CON - 12/29/24 18:00 EDT Findings: No restricted diffusion. No intra-axial mass or hemorrhage. No midline shift. No hydrocephalus. Vascular flow voids are intact. Mild flattening of the posterior globes and prominent retroglobal optic sheaths. The sinuses and mastoid air cells are clear. No focal bone lesion. IMPRESSION: No acute infarct, intracranial hemorrhage, or mass lesions. CT demonstrated right-sided cerebellar hypodensity is likely artifactual due to beam hardening. Empty sella configuration as well as mild flattening of the posterior globes and prominence of the optic sheaths. These findings could be nonspecific however, given patient's symptoms may represent idiopathic intracranial hypertension, correlate clinically. This document has been electronically signed by: Vijay Cee MD on 12/29/2024 21:24:48
--- NOTE | 2024-12-29 17:03 | ED_ITS ---
HPI - General Adult General Chief complaint: Recheck/Abnormal Lab/Rx Stated complaint: HTN FROM D[facility] OFFICE PER EMS Time Seen by Provider: 12/29/24 19:34 Source: patient Limitations: no limitations History of Present Illness ED Provider: Thalia Kruse PA-C HPI narrative: 69 yo F hx HTN here for eval of elevated BP. seen at [facility] for high blood pressure today, prescribed a new BP meds, told to take this starting tomorrow. reports DILLON, was advised to come to ED for further eval. Related Data Home Medications ?Medication ?Instructions ?Recorded ?Confirmed azelastine 137 mcg (0.1 %) nasal 1 spray intranasal BI D 07/02/22 12/29/24 spray ramelteon 8 mg tablet 8 mg PO DAILY 12/27/2212/29 mirabegron 50 mg tablet,extended 50 mg PO DAILY 12/29/24 release 24 hr (Myrbetriq) escitalopram oxalate 5 mg tablet 5 mg PO DAILY 5 12/29/24 levothyroxine 175 mcg tablet 175 mcg PO DAILY 11/10/24 12/29/24 (Synthroid) Previous Rx's ?Medication ?Instructions ?Recorded disposable gloves (Biobrane Gloves #100 ea 12/31/22 Large) adult diapers #240 ea 01/07/23 underpads (Bed Underpads) #150 ea 01/07/23 wipes #200 ea 01/07/23 powerseat lift chair #1 ea 06/25/23 dicyclomine 20 mg tablet 20 mg PO TID 30 days #90 tab s 10/17/23 plecanatide 3 mg tablet (Trulance) 3 mg PO DAILY #30 t abs 10/17/23 shower head #1 ea 12/01/23 toilet seat elevator #1 ea 12/01/23 air conditioner #1 ea 01/26/24 commode (bedside commode) #1 ea 06/01/24 ibuprofen 400 mg tablet 400 mg PO Q8H PRN pain 30 da ys #90 06/11/24 tabs atorvastatin 80 mg tablet 80 mg PO BEDTIME 90 days #90 tabs 07/13/24 humidifiers #1 ea 07/13/24 pillow #1 ea 07/13/24 hydrochlorothiazide 25 mg tablet 25 mg PO DAILY 90 day s #90 tabs 08/27/24 blood sugar diagnostic (FreeStyle #100 ea 09/20/24 Lite Strips) blood-glucose meter (FreeStyle #1 ea 09/20/24 Lite Meter kit) glucose 4 gram chewable tablet 16 g (4 x 4 gram) PO Q1 5M PRN 09/20/24 (Dex4 Glucose) hypoglycemia #100 tabs lancets 28 gauge (FreeStyle #100 ea 09/20/24 Lancets) acetaminophen 500 mg tablet 500 mg PO Q6H PRN fever or pain 30 11/07/24 (Tylenol Extra Strength) days #120 tabs compression stockings #1 ea 11/10/24 lidocaine 5 % topical patch 1 patch topical DAILY #15 ea 11/13/24 diphenhydramine HCl 25 mg capsule 25 mg PO BEDTIME PRN allergic 11/17/24 (Banophen) reaction 30 days #20 caps Lantus Solostar U-100 Insulin 100 25 unit (0.25 mL) snyder bcut DAILY #15 11/19/24 unit/mL (3 mL) subcutaneous pen mL (insulin glargine) pen needle, diabetic 32 gauge x 1 ea subcut DAILY #30 ea 11/19/24 triamcinolone acetonide 0.025 % 1 appl topical BID 7 d ays #15 grams 11/19/24 topical cream cane #1 ea 11/22/24 montelukast 10 mg tablet 10 mg PO DAILY 30 days #30 t abs 11/27/24 meloxicam 15 mg tablet 15 mg PO DAILY #30 tabs 11/25 09/21 dulaglutide 4.5 mg/0.5 mL 4.5 mg (0.5 mL) subcut QWEEK #2 mL 12/24/24 subcutaneous [facility] amlodipine 5 mg tablet 5 mg PO DAILY 90 days #90 ta bs 12/29/24 walker #1 ea 12/29/24 diclofenac sodium 1 % topical gel 2 g topical QID 1 mo nth #100 grams 01/02/25 ezetimibe 10 mg tablet 10 mg PO DAILY 90 days #90 t abs 01/03/25 losartan 100 mg tablet 100 mg PO DAILY 90 days #90 tabs 01/03/25 omeprazole 20 mg capsule,delayed 20 mg PO DAILY 90 day s #90 caps 01/04/25 release metformin 500 mg tablet 500 mg PO BID #180 tabs 12/26 08/21 silver sulfadiazine 1 % topical 1 appl topical DAILY 2 weeks #20 01/06/25 cream grams Allergies Allergy/AdvReac Type Severity Reaction Status Date / Time enalapril (ENALAPRIL) Allergy Intermediate Cough Verified 12/29/24 16:58 cephalexin (From KEFLEX) Allergy Mild rash Verified 12/29/24 16:58 ciprofloxacin (CIPROFLOXACIN) Allergy Mild HIVES,RASH Verified 12/29/24 16:58 levothyroxine sodium Allergy Mild RASH WITH Verified 12/29/24 16:58 (LEVOTHYROXINE SODIUM) GENERIC MED nitrofurantoin Allergy Mild RASH Verified 12/29/24 16:58 (NITROFURANTOIN) Penicillins (PENICILLINS) Allergy Mild RASH Verified 12/29/24 16:58 sulfamethoxazole (From Allergy Mild rash Verified 12/29/24 16:58 BACTRIM) trimethoprim (From BACTRIM) Allergy Mild rash Verified 12/29/24 16:58 corn Allergy Itching Verified 12/29/24 16:58 ALL GENERIC MEDS Allergy Mild Rash Uncoded 12/29/24 12:39 SHRIMP Allergy Unknown Unknown Uncoded 12/29/24 12:39 Review of Systems 2 Review of Systems: Yes all other systems are reviewed and are negative Constitutional: Constitutional: Denies fatigue, Denies fever(s) and Reports headache(s) ENT: Denies dizziness and Reports headache(s) Cardiovascular: Cardiovascular: Denies chest pain and Denies dyspnea Respiratory: Respiratory: Denies dyspnea Gastrointestinal: Gastrointestinal: Denies abdominal pain, Denies nausea and Denies vomiting Neurologic: Denies dizziness and Reports headache(s) Endocrine: Endocrine: Denies fatigue [facility] Past Medical History Attestation statement: The following information was validated with the patient. Medical History Diabetes mellitus DM2 (diabetes mellitus, type 2) Pain of left thumb Right upper quadrant pain AC (acromioclavicular) arthritis Hypertension Elevated LFTs Osteoarthritis (arthritis due to wear and tear of joints) Physical exam Colon cancer screening Allergic reaction Back pain Right arm pain Vulvar irritation Encounter for annual routine gynecological examination Impacted cerumen of left ear Rash Lower back pain Abnormal laboratory test result Back pain Mild recurrent major depression Thyroid cancer Depression Anxiety Sacroiliac joint disease Lumbar spondylosis GERD without esophagitis Acquired hypothyroidism Benign essential hypertension Constipation Obesity (BMI 30-39.9) Dyslipidemia skilled nursing (current) use of insulin Diabetes type 2, uncontrolled Surgical History Status post right rotator cuff repair Hx of shoulder surgery History of liver biopsy History of esophagogastroduodenoscopy (EGD) Hx of colonoscopy History of cholecystectomy History of bladder surgery H/O thyroidectomy Family History Family History Father No problems noted. Mother Diabetes Sister Lung cancer Brother H/O heart surgery Diabetes Son Epilepsy Social History Social History Household Members: Significant Other Housing: Apartment Unable to assess alcohol history related to: Unknown Alcohol intake: never Patient Tobacco Use Status: Never used Tobacco Smoked in Last 30 Days: No e-Cigarette/Vaping Use: Never Used Second Hand Smoke Exposure: No Advance Directives: No Advance Directives Information Provided: Yes service: No Current occupational status: disabled Gender identity: Female Cognitive needs: Yes Hearing needs: No Vision needs: No Physical Exam ED Vital Signs: Vital Signs - 24 hr 12/29/24 16:56 12/29/24 20:07 12/29/24 20:23 Temperature 96.7 F L Pulse Rate 90 60 62 Respiratory Rate 18 18 19 Blood Pressure 183/71 H 177/64 H 177/42 H Pulse Oximetry 96 99 100 Oxygen Delivery Method Room Air Room Air Room Air 12/29/24 21:57 12/29/24 21:59 12/29/24 22:01 Temperature 97.9 F Pulse Rate 58 58 Respiratory Rate 14 Blood Pressure 199/85 H 199/85 H 179/41 H Pulse Oximetry 99 Oxygen Delivery Method Room Air 12/29/24 22:48 12/29/24 22:54 12/29/24 23:16 Temperature 97.9 F Pulse Rate 55 54 Respiratory Rate 18 Blood Pressure 182/71 H 172/75 H 168/72 H Pulse Oximetry 98 Oxygen Delivery Method Room Air BMI result Body Mass Index 41.8 Const Other: Alert well-appearing Orientation/consciousness: patient oriented x3 Resp Effort & Inspection: normal respiratory effort Cardio Other: Normal peripheral perfusion Skin Other: Warm dry no rash Neuro General: patient oriented x3, gait normal, no focal motor deficits and CN's II- XI intact bilaterally Psych Other: Cooperative Course Course Course Narrative: 12/29/24 1704 JESUS Cárdenas This is a Rapid Medical Examination (RME) performed by Abigail Street PA-C in triage. Full HPI, ROS, assessment and treatment plan per primary provider in the Main ED. Hx: 69 yo F hx HTN here for eval of elevated BP. seen at [facility] for high blood pressure today, prescribed a new BP meds, told to take this starting tomorrow. reports DILLON, was advised to come to ED for further eval. PE/vitals: hypertensive, otherwise well appearing. Plan: labs, ekg ct Medications Administered Discontinued Medications Generic Name Dose Route Start Last Admin Trade Name Freq PRN Reason Stop Dose Admin Labetalol HCl 10 mg 12/29/24 19:37 12/29/24 21:59 Labetalol Hcl 100 Mg/20 Ml Vial IVPUSH 12/29/24 19:38 10 mg ONCE ONE Administration Labetalol HCl 20 mg 12/29/24 22:44 12/29/24 22:48 Labetalol Hcl 100 Mg/20 Ml Vial IVPUSH 12/29/24 22:45 20 mg ONCE ONE Administration Midazolam HCl 4 mg 12/29/24 20:14 12/29/24 20:18 Midazolam Hcl 2 Mg/2 Ml Vial IVPUSH 12/29/24 20:15 4 mg ONCE ONE Administration Medical Decision Making Medical Decision Making [facility] Narrative: 69 yo F hx HTN here for eval of elevated BP. seen at [facility] for high blood pressure today, prescribed a new BP meds, told to take this starting tomorrow. reports DILLON, was advised to come to ED for further eval. Problem: Hypertension History: Per patient I have considered the following differential diagnoses: Intracranial hemorrhage, end-organ damage, ACS, hypertensive urgency, hypertensive emergency Plan: The patient is here with a hypertensive urgency, she states that she is adherent with her medications, she will be receiving labetalol, also giving Versed for her discomfort. Screening labs including a cardiac enzymes are in process, ACS was considered given her hypertensive urgency, however she is not having chest pain. CT scan of the brain was ordered it is negative for bleeding, however there was concern for a new infarct, we will be ordering an MRI of the brain. It is reassuring that the patient is neurologically intact without deficits. Labs: No leukocytosis, not anemic, no electrolyte abnormality, troponin neg EKG: Sinus Hiram, rate of 58, no ischemic changes no ectopy QTC 400 CT brain:Findings: Right inferior cerebellar hemisphere small area of hypodensity concerning for recent infarct. No acute intracranial hemorrhage. No significant atrophy-like change or white matter disease. The visualized paranasal sinuses and mastoid air cells are normal. The orbits are unremarkable. Partial empty sella configuration. No skull fracture. IMPRESSION: 1. Right inferior cerebellar hemisphere small area of hypodensity concerning for recent infarct. MRI brain without contrast can be obtained for further evaluation if clinically appropriate. 2. Partial empty sella configuration. MRI brain: IMPRESSION: No acute infarct, intracranial hemorrhage, or mass lesions. CT demonstrated right-sided cerebellar hypodensity is likely artifactual due to beam hardening. Empty sella configuration as well as mild flattening of the posterior globes and prominence of the optic sheaths. These findings could be nonspecific however, given patient's symptoms may represent idiopathic intracranial hypertension, correlate clinically. Lab Data 12/29/24 17:21 12/29/24 17:21 Labs: Lab Results 12/29/24 Range/Units 17:21 WBC 5.5 (4.8-10.8) X10*3/uL RBC 4.08 L (4.20-5.50) X10*6/uL Hgb 11.8 L (12.0-16.0) g/dl Hct 35.2 L (37.0-47.0) % MCV 86.3 (80.0-98.0) fL MCH 28.9 (27.0-33.0) pg MCHC 33.5 (31.0-35.0) g/dl RDW 13.0 (11.0-16.0) % Plt Count 179 (160-400) X10*3/uL MPV 12.2 (9.4-12.3) fL Immature Gran % (Auto) 0.4 (0.0-0.4) % Neut % (Auto) 56.0 (45-73) % Lymph % (Auto) 28.4 (20-40) % Lyon % (Auto) 10.1 (2-11) % Eos % (Auto) 4.0 (0-4) % Baso % (Auto) 1.1 (0-2) % Lymph # (Auto) 1.6 (1.2-4.9) X10*3/uL Lyon # (Auto) 0.6 (0.1-1.2) X10*3/uL Eos # (Auto) 0.2 (0.0-0.4) X10*3/uL Baso # (Auto) 0.1 (0.0-0.2) X10*3/uL Abs Immat Gran (auto) 0.02 (0.00-0.03) X10*3/uL Absolute Neuts (auto) 3.1 (2.0-8.3) x10*3/uL Absolute Nucleated RBC 0.000 (0.0-0.012) X10*3/uL Nucleated RBC % (auto) 0.0 (0.0-0.2) /100WBC Sodium 142 (135-145) mmol/L Potassium 4.3 (3.3-5.1) mmol/L Chloride 106 (96-108) mmol/L Carbon Dioxide 29 (22-29) mmol/L Anion Gap 11 L (12-20) BUN 22 H (9-16) mg/dL Creatinine 0.89 (0.5-1.4) mg/dL Estim Creat Clear Calc 71.5 Estimated GFR > 60 Random Glucose 226 H (60-115) mg/dL Calcium 9.4 (8.4-10.2) mg/dL Magnesium 1.8 (1.6-2.6) mg/dL Total Bilirubin 0.4 (0.0-1.0) mg/dL AST 48 H (5-31) U/L ALT 41 H (0-31) U/L Alkaline Phosphatase 90 (39-117) U/L Total Protein 7.3 (6.5-8.0) g/dL Albumin 3.9 (3.5-5.0) g/dL Discharge Plan Discharge Clinical Impression: Essential hypertension, Headache Patient Disposition: Home, Self-Care Instructions: Chronic Hypertension (ED), General Headache (ED) Additional Instructions: All of your screening labs were normal. The MRI of your brain was normal as well, you do not have evidence of an old stroke, it was artifact noted on the CT scan. In regard to your elevated blood pressure, it has been chronically poorly controlled, you need further discussion with your primary care provider about changing your blood pressure medication regimen. Call tomorrow to make an appointment. Prescriptions: No Action (DME) disposable gloves [Biobrane Gloves Large] Misc See Rx Instructions .Route Qty: 100 6RF Rx Instructions: As directed (DME) adult diapers large See Rx Instructions .Route .MEDSUPPLY Qty: 240 11RF Rx Instructions: As directed (DME) underpads [Bed Underpads] Pad See Rx Instructions .Route Qty: 150 11RF Rx Instructions: Use 1 to 3 once a day prn (DME) wipes See Rx Instructions .Route .MEDSUPPLY Qty: 200 11RF Rx Instructions: As directed (DME) powerseat lift chair See Rx Instructions .Route .MEDSUPPLY Qty: 1 0RF Rx Instructions: As directed (DME) shower head See Rx Instructions .Route .MEDSUPPLY Qty: 1 0RF Rx Instructions: As directed (DME) toilet seat elevator See Rx Instructions .Route .MEDSUPPLY Qty: 1 0RF Rx Instructions: As directed (DME) air conditioner See Rx Instructions .Route .MEDSUPPLY Qty: 1 0RF Rx Instructions: As directed (DME) bedside commode Kit See Rx Instructions .Route Qty: 1 0RF Rx Instructions: As directed ibuprofen 400 mg tablet 400 mg PO Q8H PRN (Reason: pain) 30 Days Qty: 90 0RF hydrochlorothiazide 25 mg tablet 25 mg PO DAILY 90 Days Qty: 90 4RF acetaminophen [Tylenol Extra Strength] 500 mg tablet 500 mg PO Q6H PRN (Reason: fever or pain) 30 Days Qty: 120 2RF lidocaine 5 % adhesive patch,medicated 1 patch topical DAILY Qty: 15 0RF Rx Instructions: leave on most painful area for up to 12 hrs diphenhydramine HCl [Banophen] 25 mg capsule 25 mg PO BEDTIME PRN (Reason: allergic reaction) 30 Days Qty: 20 2RF (DME) cane Device See Rx Instructions .Route Qty: 1 0RF Rx Instructions: As directed montelukast 10 mg tablet 10 mg PO DAILY 30 Days Qty: 30 3RF meloxicam 15 mg tablet 15 mg PO DAILY Qty: 30 2RF diclofenac sodium 1 % gel 2 g topical QID 30 Days Qty: 100 4RF Rx Instructions: apply to single elbow, wrist or hand; for hand includes palm/fingers/back of hand ezetimibe 10 mg tablet 10 mg PO DAILY 90 Days Qty: 90 1RF losartan 100 mg tablet 100 mg PO DAILY 90 Days Qty: 90 1RF omeprazole 20 mg capsule,delayed release(DR/EC) 20 mg PO DAILY 90 Days Qty: 90 0RF metformin 500 mg tablet 500 mg PO BID Qty: 180 3RF silver sulfadiazine 1 % cream 1 appl topical DAILY 14 Days Qty: 20 0RF Rx Instructions: apply a 1.5 mm thickness azelastine 137 mcg (0.1 %) aerosol,spray 1 spray intranasal BID ramelteon 8 mg tablet 8 mg PO DAILY Myrbetriq 50 mg tablet extended release 24 hr 50 mg PO DAILY Trulance 3 mg tablet 3 mg PO DAILY Qty: 30 6RF dicyclomine 20 mg tablet 20 mg PO TID 30 Days Qty: 90 1RF (DME) FreeStyle Lite Strips Strip See Rx Instructions .Route Qty: 100 6RF Rx Instructions: As directed tests 2X/day (DME) blood-glucose meter [FreeStyle Lite Meter] Kit See Rx Instructions .Route Qty: 1 0RF Rx Instructions: As directed (DME) lancets [FreeStyle Lancets] 28 gauge misc See Rx Instructions .ROUTE .MEDSUPPLY Qty: 100 3RF Rx Instructions: use BID as directed to check blood glucose glucose [Dex4 Glucose] 4 gram tablet,chewable 16 g PO Q15M PRN (Reason: hypoglycemia) Qty: 100 0RF Rx Instructions: until symptoms of low blood sugar are controlled pen needle, diabetic 32 gauge x 5/32 needle 1 ea subcut DAILY Qty: 30 11RF triamcinolone acetonide 0.025 % cream 1 appl topical BID 7 Days Qty: 15 1RF insulin glargine [Lantus Solostar U-100 Insulin] 100 unit/mL (3 mL) insulin pen 25 unit subcut DAILY Qty: 15 5RF atorvastatin 80 mg tablet 80 mg PO BEDTIME 90 Days Qty: 90 1RF (DME) humidifiers Misc See Rx Instructions .Route Qty: 1 0RF Rx Instructions: As directed (DME) pillow See Rx Instructions .Route .MEDSUPPLY Qty: 1 0RF Rx Instructions: As directed amlodipine 5 mg tablet 5 mg PO DAILY 90 Days Qty: 90 1RF (DME) walker Misc See Rx Instructions .Route Qty: 1 0RF Rx Instructions: with seat and wheels escitalopram oxalate 5 mg tablet 5 mg PO DAILY levothyroxine [Synthroid] 175 mcg tablet 175 mcg PO DAILY (DME) compression stockings See Rx Instructions .Route .MEDSUPPLY Qty: 1 0RF Rx Instructions: As directed Trulicity 4.5 mg/0.5 mL pen injector 4.5 mg subcut QWEEK Qty: 2 5RF Interventions: ED Discharge Assessment Last Done: 12/30/24 00:06 Discharge Date/Time: 12/30/24 00:13 Print Language: Slovak
--- NOTE | 2024-12-29 17:03 | ECG_ITS ---
Test Reason : HTN Blood Pressure : */* mmHG Vent. Rate : 58 BPM Atrial Rate : 58 BPM P-R Int : 182 ms QRS Dur : 92 ms QT Int : 408 ms P-R-T Axes : 63 -4 38 degrees QTcB Int : 400 ms Sinus bradycardia Minimal voltage criteria for LVH, may be normal variant ( R in aVL ) Borderline ECG When compared with ECG of 28-Dec-2024 12:52, [place] interval has decreased Referred By: Ania Street Electronically Signed By: GURU MCHUGH
[2024-12-29 17:25] LABS: MANUAL DIFF FLAG NO
[2024-12-29 17:26] LABS: Basophils Absolute Auto 0.1 X10*3/uL (0.0-0.2); Basophils Percent Auto 1.1 % (0-2); Eosinophils Absolute Auto 0.2 X10*3/uL (0.0-0.4); Hematocrit 35.2 % (37.0-47.0); Hemoglobin 11.8 g/dl (12.0-16.0); Imm Gran Abs Auto 0.02 X10*3/uL (0.00-0.03); Imm Gran Pct Auto 0.4 % (0.0-0.4); Lymphocytes Absolute Auto 1.6 X10*3/uL (1.2-4.9); Lymphocytes Percent Auto 28.4 % (20-40); Mean Corpuscular HGB Conc 33.5 g/dl (31.0-35.0); Mean Corpuscular Hemoglobin 28.9 pg (27.0-33.0); Mean Corpuscular Volume 86.3 fL (80.0-98.0); Mean Platelet Volume 12.2 fL (9.4-12.3); Monocytes Absolute Auto 0.6 X10*3/uL (0.1-1.2); Monocytes Percent Auto 10.1 % (2-11); Neutrophils Absolute Auto 3.1 x10*3/uL (2.0-8.3); Platelet Count 179 X10*3/uL (160-400); Red Blood Count 4.08 X10*6/uL (4.20-5.50); White Blood Count 5.5 X10*3/uL (4.8-10.8)
[2024-12-29 17:46] LABS: Alanine Aminotransferase 41 U/L (0-31); Albumin Level 3.9 g/dL (3.5-5.0); Alkaline Phosphatase 90 U/L (39-117); Anion Gap 11 (12-20); Aspartate Amino Transferase 48 U/L (5-31); Bilirubin Total 0.4 mg/dL (0.0-1.0); Blood Urea Nitrogen 22 mg/dL (9-16); Calcium 9.4 mg/dL (8.4-10.2); Carbon Dioxide 29 mmol/L (22-29); Chloride 106 mmol/L (96-108); Creatinine Clr Calc Pharmacy 71.5; Estimated Glomerular Filt Rate > 60; Glucose Random 226 mg/dL (60-115); Magnesium 1.8 mg/dL (1.6-2.6); Potassium 4.3 mmol/L (3.3-5.1); Sodium 142 mmol/L (135-145); Total Protein 7.3 g/dL (6.5-8.0)
[2024-12-29] MEDS: Midazolam HCl 2 MG/2 ML VIAL 4 MG IVPUSH (20:18)
--- NOTE | 2024-12-29 21:37 | PC.NURSE ---
Addendum entered by Yael Aldana, RN 12/29/24 21:38: pt ok to travel to [facility] unmonitored per kannan welsh Original Note: labetolo held by provider anitha brunner, pt to [facility] via ed transport antonio
[2024-12-29] MEDS: Labetalol HCL 100 MG/20 ML VIAL 10 MG IVPUSH (21:59)
[2024-12-29] MEDS: Labetalol HCL 100 MG/20 ML VIAL 20 MG IVPUSH (22:48)
[2024-12-30 00:03] VITALS: BP 167/74; PULSE 55; RESP 22; O2SAT 99
[2024-12-30 00:06] VITALS: BP 167/74; PULSE 55; RESP 22; TEMP 36.6; O2SAT 99
== END 2024-12-30 00:13 | disposition home or self-care (01) ==
PROVIDERS: Physician Assistant Medical; Emergency Provider Emergency Medicine; PCP Internal Medicine
DX: I10 Essential (primary) hypertension (principal); R51.9 Headache, unspecified; Z79.899 Other long term (current) drug therapy; E11.9 Type 2 diabetes mellitus without complications; Z79.4 Long term (current) use of insulin
CPT/HCPCS: 36415; 70450; 70551; 80053; 83735; 85025; 93005; 96374; 96375; 96376; 99212; 99285; J1920; J2250

== ENCOUNTER → 2024-12-29 17:03 | Outpatient (BNV) | payer OTHER, SELFPAY | PROVIDERS: Emergency Provider Emergency Medicine; PCP Internal Medicine; Visit Provider Internal Medicine | DX: R00.1 Bradycardia, unspecified (principal) | CPT/HCPCS: 93010 ==

== ENCOUNTER → 2024-12-29 17:03 | Outpatient (BNV) | payer OTHER, SELFPAY | PROVIDERS: Visit Provider Student in an Organized Health Care Education/Training Program | DX: I63.541 Cerebral infarction due to unspecified occlusion or stenosis of right cerebellar artery (principal) | CPT/HCPCS: 70450; 70551 ==

== ENCOUNTER 2025-02-08 10:40 | Outpatient (REF) | payer OTHER, SELFPAY ==
--- OUTSIDE RECORDS SUMMARY | 2025-02-09 11:20 | XMS_ITS | Patient Health Record ---
Author Organization [facility] Address [address] [place] [address] Care Team Providers Care Boom Pump Operator Name Role Phone Ny Hoyos Primary Care Provider Unavail able Leland Dickinson Unavailable [phone] Reason For Referral No Information Medications Medication SIG (Take, Route, Frequency, Duration) Notes Start Date End Date Status MiraLax 1 1 capful in 8 ounces of water Orally Once or twice a day for constipation for 30 days 03/17/2014 Active Colace 100MG Active Lidoderm 5% Active Senna Lax 8.6MG Acti ve hydroCHLOROthiazide 25MG Active traZODone HCl 50MG A ctive Tylenol Extra Strength 500MG Active Loratadine 10MG Acti ve PriLOSEC OTC 20MG Ac tive Nasonex 50MG Active Verapamil HCl 180MG Active Sertraline HCl 100MG Active metFORMIN HCl 1000MG Active Cromolyn Sodium 4% A ctive Permethrin 5% Active LORazepam 0.5MG Acti ve hydrOXYzine HCl 25MG Active Synthroid 175MCG Act gerry Problems Problem Type SNOMED Code ICD Code Onset Dates Problem Status W/U Status Risk Notes Problem Constipation (54663614) Constipation (564.00) Active confirmed Problem Dysphagia (61924562) Dysphagia (787.20) Active confirmed Problem Colon cancer screening (439201999) Colon cancer screening (V76.51) Active confirmed Problem Liver function tests abnormal (552963027) Abnormal liver function tests (790.6) Active confirmed Problem Computed tomography of abdomen abnormal (finding) (00686576831815 107) Abnormal computed tomography of gastrointestinal tract (793.4) Active confirmed Plan Of Treatment Pending Test Test Name Order Date XR BARIUM SWALLOW-ESOPHAGUS 03/17/2014 Future Test Test Name Order Date COLONOSCOPY 03/17/2014 Insurance Providers Payer Name Payer Address Payer Phone Subscriber Number Group Number Insured Name Patient Relationship to Insured Coverage Start Date Coverage End Date [employer] [address] [facility] [place] [id number] LION MARTÍNEZ Self - patient is the insured MED[employer] OF [employer] [address] [place] [phone] [id number] LOIN MARTÍNEZ Self - patient is the insured Medical (General) History Medical History History ICD Code NIDDM Hypertension Cancer of thyroid--thyroidectomy at [facility] in approx. 2010 Denies [place],CVA,Lung disease,renal disease Constipation Sleep apnea-uses CPAP at night, and occa sionally during the day diabetes mellitus EGD in 11/2013 with a HH and tortuous distal esophagus--I dilated the EGJ with an 18mm balloon Elevated liver tests with a neg. workup- -neg w/u --probable fatty liver Surgical History Surgery Date(Month/Year) Thyroidectomy for cancer as above CCY Bladder suspension
--- OUTSIDE RECORDS SUMMARY | 2025-02-09 11:20 | XMS_ITS | Clinical Summary ---
Author Organization [employer] Address [address] [place] [address] [address] [place] [address] Care Team Providers Care Proof Technician Helper Name Role Phone Unavailable Primary Care Provider [...] 11/15/2020, Additional history exists Influenza Vaccine (#1) 2025 , 04/26/2021, 07/07/2020, Additional history exists DTaP/Tdap/Td [...]
== END 2025-02-08 10:41 | disposition home or self-care (01) ==
LOC: HO.HOSX 10:40
PROVIDERS: Visit Provider Physician Assistant
DX: Z13.89 Encounter for screening for other disorder (principal)

== ENCOUNTER 2025-02-09 14:24 | Outpatient (REF) | payer OTHER, SELFPAY ==
[2025-02-09 19:05] LABS: Folate 8.5 ng/mL (> or = 4.0); Vitamin B12 535 pg/mL (200-900)
== END 2025-02-09 14:25 | disposition home or self-care (01) ==
LOC: HO.HKASLDS 14:24
PROVIDERS: PCP Internal Medicine; Visit Provider Psychiatry & Neurology Neurology
DX: R41.89 Other symptoms and signs involving cognitive functions and awareness (principal); G25.2 Other specified forms of tremor; R06.83 Snoring; G47.10 Hypersomnia, unspecified; F03.90 Unspecified dementia, unspecified severity, without behavioral disturbance, psychotic disturbance, mood disturbance, and anxiety
CPT/HCPCS: 36415; 82607; 82746; 84443; 85652; 99202

== ENCOUNTER 2025-02-09 14:24 | Outpatient (AMB) | payer OTHER, SELFPAY ==
[2025-02-09 14:34] VITALS: BP 120/68; PULSE 80; O2SAT 97
--- NOTE | 2025-02-09 14:34 | MHC.OFFVIS ---
Vital Signs 02/09/25 14:34 Weight 235 lb BP 120/68 Blood Pressure Location Rt brachial Position Sitting Pulse 80 Pulse Source Pulse Oximeter Pulse Oximetry (%) 97 Oxygen Delivery Method Room Air Intake Visit Reasons: INP-Signs inv cog Intake Note: NPV Cognitive Audio Visual Design Engineer Required: No Accompanied by: Self / Same As Patient Allergies enalapril (ENALAPRIL) Allergy (Intermediate, Verified 02/09/25 14:34) Cough cephalexin (From KEFLEX) Allergy (Mild, Verified 02/09/25 14:34) rash ciprofloxacin (CIPROFLOXACIN) Allergy (Mild, Verified 02/09/25 14:34) HIVES,RASH levothyroxine sodium (LEVOTHYROXINE SODIUM) Allergy (Mild, Verified 02/09/25 14:34) RASH WITH GENERIC MED nitrofurantoin (NITROFURANTOIN) Allergy (Mild, Verified 02/09/25 14:34) RASH Penicillins (PENICILLINS) Allergy (Mild, Verified 02/09/25 14:34) RASH sulfamethoxazole (From BACTRIM) Allergy (Mild, Verified 02/09/25 14:34) rash trimethoprim (From BACTRIM) Allergy (Mild, Verified 02/09/25 14:34) rash corn Allergy (Verified 02/09/25 14:34) Itching ALL GENERIC MEDS Allergy (Mild, Uncoded 12/29/24 12:39) Rash SHRIMP Allergy (Unknown, Uncoded 12/29/24 12:39) Unknown Medication List - Last Reconciled 02/09/25 by Ines Vo MD acetaminophen (Tylenol Extra Strength) 500 mg PO Q6H PRN 30 days [adult diapers As directed] [air conditioner As directed] amlodipine 5 mg PO DAILY 90 days atorvastatin 80 mg PO BEDTIME 90 days azelastine 1 spray intranasal BID blood sugar diagnostic (FreeStyle Lite Strips) As directed tests 2X/day blood-glucose meter (FreeStyle Lite Meter kit) As directed cane As directed commode (bedside commode) As directed [compression stockings As directed] diclofenac sodium 1% 2 grams topical QID 1 month dicyclomine 20 mg PO TID 30 days diphenhydramine HCl (Banophen) 25 mg PO BEDTIME PRN 30 days disposable gloves (Biobrane Gloves Large) As directed dulaglutide (Trulicity) 4.5 mg (0.5 mL) subcut QWEEK escitalopram oxalate 5 mg PO DAILY ezetimibe 10 mg PO DAILY 90 days glucose (Dex4 Glucose) 16 grams (4 x 4 gram) PO Q15M PRN humidifiers As directed hydrochlorothiazide 25 mg PO DAILY 90 days NS ibuprofen 400 mg PO Q8H PRN 30 days lancets (FreeStyle Lancets) use BID as directed to check blood glucose Lantus Solostar U-100 Insulin (insulin glargine) 25 units (0.25 mL) subcut DAILY NS levothyroxine (Synthroid) 175 mcg PO DAILY lidocaine 5% 1 patch topical DAILY losartan 100 mg PO DAILY 90 days meloxicam 15 mg PO DAILY metformin 500 mg PO BID mirabegron ER (Myrbetriq) 50 mg PO DAILY montelukast 10 mg PO DAILY 30 days omeprazole 20 mg PO DAILY 90 days pen needle, diabetic 1 ea subcut DAILY [pillow As directed] plecanatide (Trulance) 3 mg PO DAILY [powerseat lift chair As directed] ramelteon 8 mg PO DAILY [shower head As directed] silver sulfadiazine 1% 1 appl topical DAILY 2 weeks [toilet seat elevator As directed] triamcinolone acetonide 0.025% 1 appl topical BID 7 days underpads (Bed Underpads) Use 1 to 3 once a day prn walker with seat and wheels [wipes As directed] HPI Comments Details: 69y/o Right handed female comes for evaluation of head tremors and cognitive issues .she is accompanied by her daughter who help with history.About 3 years ago her daughter head tremors- she was seen by DR. Miller who told her that she has early stages of dementia. The tremors are constant and associated with neck tightness. Her daughters feels he has mild memory issues. she frequently repeats herself , misplaces things around the house.she is independant in most ADLS. No h/o head injury. she always had neck stiffness. SHe has trouble falling asleep and staying asleep. she has snoring Unclear if she has witnessed apnea. she has excessive daytime sleepiness. [facility] Medical History (Updated 02/09/25 @ 15:07 by Ines Vo MD) Hypersomnia Snorings Isolated tremor of head Diabetes mellitus DM2 (diabetes mellitus, type 2) Pain of left thumb Right upper quadrant pain AC (acromioclavicular) arthritis Hypertension Elevated LFTs Osteoarthritis (arthritis due to wear and tear of joints) Physical exam Colon cancer screening Allergic reaction Back pain Right arm pain Vulvar irritation Encounter for annual routine gynecological examination Impacted cerumen of left ear Rash Lower back pain Abnormal laboratory test result Back pain Mild recurrent major depression Thyroid cancer Depression Anxiety Sacroiliac joint disease Lumbar spondylosis GERD without esophagitis Acquired hypothyroidism Benign essential hypertension Constipation Obesity (BMI 30-39.9) Dyslipidemia MCC (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 Mother Diabetes Sister Lung cancer Brother H/O heart surgery Diabetes Son Epilepsy Social History Household Members: Significant Other Housing: Apartment Unable to assess alcohol history related to: Unknown Alcohol intake: never Patient Tobacco Use Status: Never used Tobacco e-Cigarette/Vaping Use: Never Used Second Hand Smoke Exposure: No service: No Current occupational status: disabled Gender identity: Female Cognitive needs: Yes Hearing needs: No Vision needs: No Female Reproductive History Menstrual Age of Menarche: 13 Physical Exam Vital Signs: Last Vital Signs Pulse 80 02/09/25 14:34 BP 120/68 02/09/25 14:34 Pulse Ox 97 02/09/25 14:34 Oxygen Delivery Method Room Air 02/09/25 14:34 Const General: cooperative, healthy appearing and comfortable Nutritional Appearance: obese Orientation/consciousness: patient oriented x3 Eyes Pupils: Equal, round and reactive pupils present Neuro Other: mild no no head tremors Neck tightness and stiffness General: patient oriented x3, moves all extremities and no focal motor deficits Cranial nerves: Yes Equal, round and reactive pupils present, Yes Bilaterally intact EOM present, Yes Nystagmus not present, Yes Normal facial strength present, Yes Midline tongue present, Yes Symmetric palate elevation present and Yes Ability to bilaterally elevate shoulders present Cognition (Neuro): normal cognition Gait exam (Neuro): Antalgic gait present Motor exam (neuro): 5/5 motor strength present throughout and Normal motor muscle tone present throughout Deep tendon reflexes (DTR's): Right triceps reflex intensity grade: 2+, Left triceps reflex intensity grade: 2+, Rt Biceps (C5, C6): 2+, Left biceps reflex intensity grade: 2+, Right brachioradialis reflex intensity grade: 2+, Left brachioradialis reflex intensity grade: 2+, Right patellar reflex intensity grade: 2+ and Left patellar reflex intensity grade: 2+ Coordination: [id number] test normal Orientation What is the (year) (season) (date) (day) (month)?: year, season, date, day and month Where are we (state) (county) (town or city) (hospital) (floor)?: state, town or city, hospital/clinic and floor Registration Name of 3 unrelated objects clearly and slowly, then ask patient to repeat all 3 of them. (1st repeat determines score. Make sure they can repeat all three): object 1, object 2 and object 3 Recall Ask patient to repeat the 3 items from question #3.: object 1 and object 2 Language Show patient a wristwatch & ask what it is. Repeat for pencil.: watch and pencil Ask the patient to repeat the phrase 'No ifs, ands, or buts' after you.: correct Ask the patient to 'take a piece of paper with their right hand' 'fold paper in half' 'place paper on floor': take paper in right hand, fold paper in half and place paper on floor Print the sentence 'CLOSE YOUR EYES' on a piece. If patient actually closes eyes then score.: followed written direction Give patient a blank piece of paper & ask to write a sentence. Score if it contains a noun & verb.: sentence contains subject and verb Ask patient to copy figure of intersecting pentagons exactly. Score if all 10 angles & 2 intersects are included.: all 10 angles present & 2 are intersected Score Score: 23 Assessment & Plan Assessment & Plan (1) Cognitive impairment: Comment: MMSE Code(s): R41.89 - Other symptoms and signs involving cognitive functions and awareness Category: Medical (2) Isolated tremor of head: Code(s): G25.2 - Other specified forms of tremor Category: Medical (3) Snorings: Code(s): R06.83 - Snoring Category: Medical (4) Hypersomnia: Code(s): G47.10 - Hypersomnia, unspecified Category: Medical Plan MRI brain - to evaluate empty sella Home sleep test to r/o sleep apnea Labs - B12 TSH ESR Orders: Orders Vitamin B12 and Folate Today R41.89 - Other symptoms and signs involving cognitive functions and awareness TSH reflex Free T4 Today R41.89 - Other symptoms and signs involving cognitive functions and awareness MR head/brain wo con Today R41.89 - Other symptoms and signs involving cognitive functions and awareness RT home sleep study Today G47.10 - Hypersomnia, unspecified, R06.83 - Snoring Erythrocyte Sedimentation Rate Today R41.89 - Other symptoms and signs involving cognitive functions and awareness Coding Level of Care Code New Pt Level 4 (97968) Complex EM visit Add On G2211 Diagnoses Cognitive impairment R41.89 Isolated tremor of head G25.2 Snorings R06.83 Hypersomnia G47.10
== END 2025-02-09 15:14 | disposition home or self-care (01) ==
PROVIDERS: PCP Internal Medicine; Visit Provider Psychiatry & Neurology Neurology
DX: R41.89 Other symptoms and signs involving cognitive functions and awareness (principal); G25.2 Other specified forms of tremor; R06.83 Snoring; G47.10 Hypersomnia, unspecified
CPT/HCPCS: 99204; G2211

== ENCOUNTER 2025-03-15 09:48 | Outpatient (REF) | payer OTHER, SELFPAY ==
--- OUTSIDE RECORDS SUMMARY | 2025-03-15 10:59 | XMS_ITS | Patient Health Record ---
Author Organization [facility] Address [address] [place] [address] Care Team Providers Care Audio/Visual Manager Name Role Phone Ny Hoyos Primary Care Provider Unavail able Leland Dickinson Unavailable [phone] Reason For Referral No Information Medications Medication [...] Status W/U Status Risk Notes Problem Constipation (99752469) Constipation (564.00) Active confirmed Problem Dysphagia (41207469) Dysphagia (787.20) Active confirmed Problem Colon cancer screening (602119526) Colon cancer screening (V76.51) Active confirmed Problem Liver function tests abnormal (180366045) Abnormal liver function tests (790.6) Active confirmed Problem Computed tomography of abdomen abnormal (finding) (38699799662089 107) Abnormal computed tomography of gastrointestinal tract (793.4) Active confirmed Plan Of Treatment Pending Test Test Name Order Date XR BARIUM SWALLOW-ESOPHAGUS 03/17/2014 Future Test Test Name Order Date COLONOSCOPY 03/17/2014 Insurance Providers Payer Name Payer Address Payer Phone Subscriber Number Group Number Insured Name Patient Relationship to Insured Coverage Start Date Coverage End Date [facility] [address] [facility] [place] [id number] LION MARTÍNEZ Self - patient is the insured MEDICAID OF [place] [address] [place] [phone] [id number] LION MARTÍNEZ Self - patient is the insured Medical (General) History Medical History History ICD Code NIDDM Hypertension Cancer of thyroid--thyroidectomy at [facility] in approx. 2010 Denies [place],CVA,Lung disease,renal disease [...]
[2025-03-15 11:48] LABS: Cholesterol 161 mg/dL (<200); HDL Cholesterol 40 mg/dL (>40); Triglycerides 86 mg/dL (<150)
[2025-03-15 11:52] LABS: Thyroid Stimulating Hormone 1.62 uIU/mL (0.32-4.0)
[2025-03-15 11:54] LABS: Microalbum/Creatinine Ratio Ur 5.8 ug/mg cr (<30)
== END 2025-03-15 09:49 | disposition home or self-care (01) ==
LOC: HO.LAB 09:48
PROVIDERS: Visit Provider Internal Medicine
DX: C73 Malignant neoplasm of thyroid gland (principal); E11.9 Type 2 diabetes mellitus without complications; E78.5 Hyperlipidemia, unspecified; Z79.4 Long term (current) use of insulin
CPT/HCPCS: 36415; 80061; 82043; 82570; 84443

== ENCOUNTER 2025-03-25 10:36 | Outpatient (AMB) | payer OTHER, SELFPAY ==
--- NOTE | 2025-03-25 10:40 | A.OFFVIS_ITS ---
Vital Signs 03/25/25 10:41 Weight 242 lb 15.19 oz BP 110/72 Blood Pressure Location Lt brachial Position Sitting Pulse 92 Pulse Source Pulse Oximeter Pulse Oximetry (%) 97 Oxygen Delivery Method Room Air Intake Visit Reasons: T2DM Intake Note: Patient present today for Type 2 Diabetes Mellitus Last Diabetic eye exam: 12/19/24 Last Podiatry Visit: Doesn't have one Random Glucose: 278 mg/dl HgA1C: 8.8% Vp Ancillary Required: Yes Vp Ancillary Language: Asphalt Tamping Machine Operator Services: Vp Ancillary Present Vp Ancillary Name: Tara [id number] Information Interpreted: non-clinical & clinical Accompanied by: RETAIL PROPERTY MANAGER Allergies enalapril (ENALAPRIL) Allergy (Intermediate, Verified 03/25/25 10:45) Cough cephalexin (From KEFLEX) Allergy (Mild, Verified 03/25/25 10:45) rash ciprofloxacin (CIPROFLOXACIN) Allergy (Mild, Verified 03/25/25 10:45) HIVES,RASH levothyroxine sodium (LEVOTHYROXINE SODIUM) Allergy (Mild, Verified 03/25/25 10:45) RASH WITH GENERIC MED nitrofurantoin (NITROFURANTOIN) Allergy (Mild, Verified 03/25/25 10:45) RASH Penicillins (PENICILLINS) Allergy (Mild, Verified 03/25/25 10:45) RASH sulfamethoxazole (From BACTRIM) Allergy (Mild, Verified 03/25/25 10:45) rash trimethoprim (From BACTRIM) Allergy (Mild, Verified 03/25/25 10:45) rash corn Allergy (Verified 03/25/25 10:45) Itching ALL GENERIC MEDS Allergy (Mild, Uncoded 03/25/25 10:45) Rash SHRIMP Allergy (Unknown, Uncoded 03/25/25 10:45) Unknown HPI HPI T2DM: Details: Patient is 69-year-old female who presents today for a follow-up regarding her diabetes. She has a significant past medical history of hypertension, hyperlipidemia, GERD, depression, anxiety, polyarthralgia , acquired hypothyroidism s/p papillary thyroid carcinoma and obesity. Phone skidway worker used today. Tara Endo: DM-She was diagnosed with type 2 diabetes in 2012. Her A1c 8.8. She is currently on Lantus 24 units metformin 500 mg twice a day, Trulicity 4.5mg/week. She states her blood sugars have 98-130. She states she checks it fasting and after eating. The highest it has been has been 130. She does check it 1-2 a day. No glucose readings less than 70. She states that her blood sugars overall seem really well-controlled despite her A1c increasing. Her family members here today with her and states that she has had some dietary indiscretions. She denies any hyper or hypoglycemic events. -She Intolerant of Jardiance due to uncontrollable urination and diarrhea. Adamantly refuses a CGM. She did not bring in her glucometer. States that she has not needed to correct any hypoglycemic events. States that if she would she would use candy She has an upcoming appointment with her almond blancher hand in May. She states the locomotive observer keeps cancelling but she would like to see someone. She denies any difficulty feeling her feet. States that she does not have pain but her toenails are often thickened especially the right great toenail. CV: Blood pressure today in the office is 110/72.. She is on losartan 100 mg and hctz 25 mg. Cholesterol is controlled with atorvastatin 80 mg and Zetia 10 mg. Last LDL 104. [facility] Medical History (Updated 02/09/25 @ 15:07 by Ines Vo MD) Hypersomnia Snorings Isolated tremor of head Diabetes mellitus DM2 (diabetes mellitus, type 2) Pain of left thumb Right upper quadrant pain AC (acromioclavicular) arthritis Hypertension Elevated LFTs Osteoarthritis (arthritis due to wear and tear of joints) Physical exam Colon cancer screening Allergic reaction Back pain Right arm pain Vulvar irritation Encounter for annual routine gynecological examination Impacted cerumen of left ear Rash Lower back pain Abnormal laboratory test result Back pain Mild recurrent major depression Thyroid cancer Depression Anxiety Sacroiliac joint disease Lumbar spondylosis GERD without esophagitis Acquired hypothyroidism Benign essential hypertension Constipation Obesity (BMI 30-39.9) Dyslipidemia half-way (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 Mother Diabetes Sister Lung cancer Brother H/O heart surgery Diabetes Son Epilepsy Social History Household Members: Significant Other Housing: Apartment Unable to assess alcohol history related to: Unknown Alcohol intake: never Patient Tobacco Use Status: Never used Tobacco e-Cigarette/Vaping Use: Never Used Second Hand Smoke Exposure: No service: No Current occupational status: disabled Gender identity: Female Cognitive needs: Yes Hearing needs: No Vision needs: No Female Reproductive History Menstrual Age of Menarche: 13 Physical Exam Vital Signs: Last Vital Signs Pulse 92 03/25/25 10:41 BP 110/72 03/25/25 10:41 Pulse Ox 97 03/25/25 10:41 Oxygen Delivery Method Room Air 03/25/25 10:41 Const Orientation/consciousness: patient oriented x3 HEENT Ears: hearing grossly normal bilaterally Neck Thyroid: Thyroid normal Lymphatic: no lymphadenopathy noted Resp Auscultation: clear to auscultation bilaterally Cardio Rate: regular rate Rhythm: regular rhythm Heart sounds: S1 normal heart sound present and S2 normal heart sound present Skin General skin exam: no rashes or lesions noted Neuro General: patient oriented x3, gait normal and no focal motor deficits Results AMB Hemoglobin A1c AMB Hemoglobin A1c 8.8 % Last Edit by DOM Leigh on 03/25/25 11:02 Results Reviewed Results Reviewed: Laboratory Last Values Glucose (Clinic) 278 mg/dL (60-115) H 03/25/25 10:47 Hgb A1c (Clinic) 8.8 % (4.0-6.0) H 03/25/25 10:51 Laboratory Tests 07/09/24 12/24/24 12/29/24 09:38 11:13 17:21 Creatinine 0.89 Estimated GFR > 60 Random Glucose 226 H Hgb A1c (Clinic) 8.1 H AST 48 H ALT 41 H Alkaline Phosphatase 90 Triglycerides 71 Cholesterol 173 LDL Cholesterol, Calc 104 H HDL Cholesterol 55 Urine Creatinine Urine Microalbumin Microalb/Creat Ratio 03/15/25 03/15/25 10:08 10:11 Creatinine Estimated GFR Random Glucose Hgb A1c (Clinic) AST ALT Alkaline Phosphatase Triglycerides 86 Cholesterol 161 LDL Cholesterol, Calc 104 H HDL Cholesterol 40 L Urine Creatinine 171.27 Urine Microalbumin 10.0 Microalb/Creat Ratio 5.8 Assessment & Plan Assessment & Plan (1) Uncontrolled type 2 diabetes mellitus with hyperglycemia, with long-term current use of insulin: Code(s): E11.65 - Type 2 diabetes mellitus with hyperglycemia; Z79.4 - intermediate frame tender (current) use of insulin Category: Medical Plan: She does not want to add a new medication or switch GLP ones. She is in agreement to increase metformin. We will try to increase metformin to 1000 mg. Continue Lantus. Continue with the Trulicity. Follow up in a few months. Sooner if needed. Patient understands and agrees with the plan. 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.4 - intermediate frame tender (current) use of insulin Referrals Podiatry Referral E11.65 - Type 2 diabetes mellitus with hyperglycemia, Z79.4 - half-way (current) use of insulin Medications: New metformin 1,000 mg PO BID 180 tabs 2RF Discontinued metformin Discontinued Reason: Doctor's Order 500 mg PO BID 180 tabs 3RF E11.65 - Type 2 diabetes mellitus with hyperglycemia Coding Level of Care Code Est Pt Level 4 (35548) Complex EM visit Add On G2211 Diagnoses Uncontrolled type 2 diabetes mellitus with hyperglycemia, with long-term current use of insulin E11.65; Z79.4
[2025-03-25 10:41] VITALS: BP 110/72; PULSE 92; O2SAT 97
[2025-03-25 10:52] LABS: Glucose, Whole Blood 278 mg/dL (60-115)
--- OUTSIDE RECORDS SUMMARY | 2025-03-25 11:14 | XMS_ITS | Patient Health Record ---
Author Organization [facility] Address [address] [place] [address] Care Team Providers Care Equipment Records Supervisor Name Role Phone Ny Hoyos Primary Care Provider Unavail able Leland Dickinson Unavailable [phone] Reason For Referral No Information Medications Medication [...] Status W/U Status Risk Notes Problem Constipation (35915518) Constipation (564.00) Active confirmed Problem Dysphagia (32020377) Dysphagia (787.20) Active confirmed Problem Colon cancer screening (366127031) Colon cancer screening (V76.51) Active confirmed Problem Liver function tests abnormal (377755309) Abnormal liver function tests (790.6) Active confirmed Problem Computed tomography of abdomen abnormal (finding) (10663882604127 107) Abnormal computed tomography of gastrointestinal tract (793.4) Active confirmed Plan Of Treatment Pending Test Test Name Order Date XR BARIUM SWALLOW-ESOPHAGUS 03/17/2014 Future Test Test Name Order Date COLONOSCOPY 03/17/2014 Insurance Providers Payer Name Payer Address Payer Phone Subscriber Number Group Number Insured Name Patient Relationship to Insured Coverage Start Date Coverage End Date [facility] [address] [facility] [place] [phone] [id number] LION MARTÍNEZ Self - patient is the insured MEDICAID OF [employer] [address] [place] [phone] [id number] LION MARTÍNEZ Self - patient is the insured Medical (General) History Medical History History ICD Code NIDDM Hypertension Cancer of thyroid--thyroidectomy at [facility] in approx. 2010 Denies [place],CVA,Lung disease,renal disease Constipation Sleep apnea-uses CPAP at [...]
--- OUTSIDE RECORDS SUMMARY | 2025-03-25 11:14 | XMS_ITS | Clinical Summary ---
Author Organization [employer] Address [address] [place] [address] [address] [place] [address] Care Team Providers Care Experimental Machinist Name Role Phone Unavailable Primary Care Provider [...]
== END 2025-03-25 11:23 | disposition home or self-care (01) ==
LOC: HO.ENCR 10:36
PROVIDERS: PCP Internal Medicine; Visit Provider Physician Assistant
DX: Z13.9 Encounter for screening, unspecified (principal); E11.65 Type 2 diabetes mellitus with hyperglycemia; Z79.4 Long term (current) use of insulin

== ENCOUNTER → 2025-03-25 10:36 | Outpatient (BNVA) | payer OTHER, SELFPAY | PROVIDERS: PCP Internal Medicine; Visit Provider Physician Assistant | DX: E11.65 Type 2 diabetes mellitus with hyperglycemia (principal); I10 Essential (primary) hypertension; E78.00 Pure hypercholesterolemia, unspecified; K21.9 Gastro-esophageal reflux disease without esophagitis; F32.A Depression, unspecified; F41.9 Anxiety disorder, unspecified; Z79.4 Long term (current) use of insulin | CPT/HCPCS: 82947; 83036; 99212 ==

== ENCOUNTER 2025-05-03 10:02 | Outpatient (AMB) | payer OTHER, SELFPAY ==
[2025-05-03 10:11] VITALS: BP 138/86; PULSE 89; O2SAT 96; BMI 41.3
--- NOTE | 2025-05-03 10:11 | MHC.PC.OV ---
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: No Accompanied by: Self / Same As Patient Allergies enalapril (ENALAPRIL) Allergy (Intermediate, Verified 05/03/25 10:32) Cough cephalexin (From KEFLEX) Allergy (Mild, Verified 05/03/25 10:32) rash ciprofloxacin (CIPROFLOXACIN) Allergy (Mild, Verified 05/03/25 10:32) HIVES,RASH levothyroxine sodium (LEVOTHYROXINE SODIUM) Allergy (Mild, Verified 05/03/25 10:32) RASH WITH GENERIC MED nitrofurantoin (NITROFURANTOIN) Allergy (Mild, Verified 05/03/25 10:32) RASH Penicillins (PENICILLINS) Allergy (Mild, Verified 05/03/25 10:32) RASH sulfamethoxazole (From BACTRIM) Allergy (Mild, Verified 05/03/25 10:32) rash trimethoprim (From BACTRIM) Allergy (Mild, Verified 05/03/25 10:32) rash corn Allergy (Verified 05/03/25 10:32) Itching ALL GENERIC MEDS Allergy (Mild, Uncoded 05/03/25 10:32) Rash SHRIMP Allergy (Unknown, Uncoded 05/03/25 10:32) Unknown Medication List - Last Reconciled 05/03/25 by Yael Talbot MD acetaminophen (Tylenol Extra Strength) 500 mg PO Q6H PRN 30 days [adult diapers As directed] [air conditioner As directed] amlodipine 5 mg PO DAILY 90 days atorvastatin 80 mg PO BEDTIME 90 days azelastine 1 spray intranasal BID blood sugar diagnostic (FreeStyle Lite Strips) As directed tests 2X/day blood-glucose meter (FreeStyle Lite Meter kit) As directed cane As directed commode (bedside commode) As directed [compression stockings As directed] diclofenac sodium 1% 2 grams topical QID 1 month dicyclomine 20 mg PO TID 30 days diphenhydramine HCl (Banophen) 25 mg PO BEDTIME PRN 30 days disposable gloves (Biobrane Gloves Large) As directed dulaglutide (Trulicity) 4.5 mg (0.5 mL) subcut QWEEK escitalopram oxalate 5 mg PO DAILY ezetimibe 10 mg PO DAILY 90 days glucose (Dex4 Glucose) 16 grams (4 x 4 gram) PO Q15M PRN humidifiers As directed hydrochlorothiazide 25 mg PO DAILY 90 days NS ibuprofen 400 mg PO Q8H PRN 30 days lancets (FreeStyle Lancets) use BID as directed to check blood glucose Lantus Solostar U-100 Insulin (insulin glargine) 25 units (0.25 mL) subcut DAILY NS levothyroxine (Synthroid) 175 mcg PO DAILY lidocaine 5% 1 patch topical DAILY losartan 100 mg PO DAILY 90 days meloxicam 15 mg PO DAILY metformin 1,000 mg PO BID mirabegron ER (Myrbetriq) 50 mg PO DAILY montelukast 10 mg PO DAILY 30 days omeprazole 20 mg PO DAILY 90 days pen needle, diabetic 1 ea subcut DAILY [pillow As directed] plecanatide (Trulance) 3 mg PO DAILY [powerseat lift chair As directed] ramelteon 8 mg PO DAILY [shower head As directed] silver sulfadiazine 1% 1 appl topical DAILY 2 weeks [toilet seat elevator As directed] triamcinolone acetonide 0.025% 1 appl topical BID 7 days underpads (Bed Underpads) Use 1 to 3 once a day prn walker with seat and wheels [wipes As directed] Tobacco use date assessed: 05/03/25 Fall risk assessment: No Falls in past year Last assessed Fall Risk: 05/03/25 Dental Screening Dental Screen Date: 05/03/25 Did you have a dental visit in the last 12 months?: No Did you have a dental problem in the last 6 months where you did not have access to dental care?: No Was dental information given to patient?: No HPI HPI Comments History of Present Illness Details The patient is a 69-year-old female presenting for follow-up of chronic conditions including diabetes, hypertension, and hyperlipidemia. The patient's diabetes management has been challenging, with the most recent hemoglobin A1c recorded at 8.8% on March 24, indicating poor glycemic control. Previously, her A1c was 8.1%, suggesting a worsening trend. She is currently on metformin 1000 mg twice daily and Trulicity 4.5 mg once weekly for diabetes management. Hypertension is being managed with amlodipine 5 mg, hydrochlorothiazide 25 mg, and losartan. Her blood pressure was last recorded at 138/86 mmHg, which is within acceptable limits for her age. The patient has hyperlipidemia, with previous LDL cholesterol levels above the target of 70 mg/dL. She is on atorvastatin 80 mg and ezetimibe 10 mg for lipid management. She also reports a history of depression with anxiety, for which she is taking escitalopram 5 mg. The patient experiences urinary incontinence and is using Myrbetriq for management. She has gastroesophageal reflux disease, managed with omeprazole as needed. [facility] Medical History (Updated 05/03/25 @ 10:53 by Yael Talbot MD) Hypersomnia Snorings Isolated tremor of head Diabetes mellitus DM2 (diabetes mellitus, type 2) Pain of left thumb Right upper quadrant pain AC (acromioclavicular) arthritis Hypertension Elevated LFTs Osteoarthritis (arthritis due to wear and tear of joints) Physical exam Colon cancer screening Allergic reaction Back pain Right arm pain Vulvar irritation Encounter for annual routine gynecological examination Impacted cerumen of left ear Rash Lower back pain Abnormal laboratory test result Back pain Mild recurrent major depression Thyroid cancer Depression Anxiety Sacroiliac joint disease Lumbar spondylosis GERD without esophagitis Acquired hypothyroidism Benign essential hypertension Constipation Obesity (BMI 30-39.9) Dyslipidemia roasterman (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 Mother Diabetes Sister Lung cancer Brother H/O heart surgery Diabetes Son Epilepsy Social History Household Members: Significant Other Housing: Apartment Alcohol intake: never Patient Tobacco Use Status: Never used Tobacco e-Cigarette/Vaping Use: Never Used Second Hand Smoke Exposure: No service: No Current occupational status: disabled Gender identity: Female Cognitive needs: Yes Hearing needs: No Vision needs: No Female Reproductive History Menstrual Age of Menarche: 13 Questionnaire PHQ-9 Over the last 2 weeks, how often have you been bothered by any of the following problems? 1. Little interest or pleasure in doing things: not at all 2. Feeling down, depressed, or hopeless: not at all 3. Trouble falling or staying asleep, or sleeping too much: not at all 4. Feeling tired or having little energy: not at all 5. Poor appetite or overeating: not at all 6. Feeling bad about yourself - or that you are a failure or have let yourself or your family down: not at all 7. Trouble concentrating on things, such as reading the newspaper or watching television: not at all 8. Moving or speaking so slowly that other people could have noticed. Or the opposite - being so fidgety or restless that you have been moving around a lot more than usual: not at all 9. Thoughts that you would be better off or of hurting yourself in some way: not at all Total score: 0 Depression Screening Interpretation: Negative Depression Screening Done: Yes 66490 - PHQ-9 Billing: Yes Source: Developed by Drs. Leland Gregorio, Elda Quinteros, Lamin Pierre and colleagues, with an educational edilberto from [employer]. Thrive Questionnaire Date Thrive assessed: 11/10/24 I am a: Patient What is your living situation today?: I have a steady place to live Within the past 12 months, did the food you bought not last and you didn't have the money to get more?: Never true Within the past 12 months, did you worry whether your food would run out before you got money to buy more?: Never true Do you have trouble paying for medicines?: No Do you have trouble getting transportation to medical appointments?: No Do you have trouble paying your heating and electricity bill?: No Do you have trouble taking care of your child, family member or friend?: No Do you have trouble with day-to-day activities such as bathing, preparing meals, shopping, managing finances, etc.?: No Are you currently unemployed and looking for a job?: No Are you interested in more education?: No Please select the resources that you would like help with: None Currently or been in a relationship where the following occur: No concerns reported THRIVE Score: 0 AUDIT C Alcohol Use Questionnaire (AUDIT-C) 1. How often do you have a drink containing alcohol?: Never 3. How often do you have six or more drinks on one occasion?: Never Total Score: 0 Score Reviewed/Action Taken: No DENIS-7 AMB Questionnaire DENIS-7 Date DENIS - 7 assessed: 11/10/24 Feeling nervous, anxious, or on edge: 0 = Not at all Not being able to stop or control worryin = Not at all Worrying too much about different things: 0 = Not at all Trouble relaxin = Not at all Being so restless that it is hard to sit still: 0 = Not at all Becoming easily annoyed or irritable: 0 = Not at all Feeling afraid as if something awful might happen: 0 = Not at all Total DENIS-7 score (0-4 normal; 5-9 mild; 10-14 moderate; 15-21 severe): 0 Source: Developed by Drs. Leland Gregorio, Elda Quinteros, Lamin Pierre and colleagues, with an educational edilberto from [employer]. DENIS-7 Assessment Billing DENIS-7 Assessment Tool: DENIS-7 Assessment 62681 Review of Systems Const All systems reviewed & are unremarkable except as noted in HPI and below Card Denies chest pain at rest, Denies chest pain with activity, Denies edema, Denies irregular heart rhythm, Denies claudication, Denies dyspnea, Denies dyspnea on exertion, Denies orthopnea, Denies paroxysmal nocturnal dyspnea and Denies slow heart rate Resp Denies cough, Denies dyspnea and Denies dyspnea on exertion GI Denies abdominal pain, Denies change in bowel habits, Denies excessive flatus, Denies nausea and Denies vomiting Physical exam (Primary Care) Vital Signs: Last Vital Signs Pulse 89 05/03/25 10:11 BP 138/86 05/03/25 10:11 Pulse Ox 96 05/03/25 10:11 Oxygen Delivery Method Room Air 05/03/25 10:11 BMI result Body Mass Index 41.3 BMI Assessment/Plan discussion: High BMI High, discussed plan: lifestyle, weight reduction, dietary and physical activity Tobacco/Smoking Status: Tobacco use Status Tobacco use date assessed 05/03/25 05/03/25 10:14 Patient Tobacco Use Status Never used Tobacco 05/03/25 10:11 e-Cigarette/Vaping Use Never Used 05/03/25 10:11 PHQ-9: PHQ-9 Score PHQ-9: Total score 0 05/03/25 10:36 Depression Screening Interpretation: Negative Thrive Assessment: Date of Thrive Assessment Date Thrive assessed 11/10/24 05/03/25 10:11 Currently or been in a relationship where the following occur: No concerns reported Resp Effort & Inspection: normal respiratory effort Auscultation: clear to auscultation bilaterally Cardio Jugular venous distension: no JVD Rate: regular rate Rhythm: regular rhythm Heart sounds: S1 normal heart sound present and S2 normal heart sound present Extrem General: Yes full ROM Office Procedures Flu Questionnaire Does the patient have a severe egg allergy?: No Does the patient have severe life threatening allergies?: No Does the patient have a fever or illness today?: No Has the patient ever had Guillain-[place] Syndrome?: No Has the patient ever had any past reaction to a flu shot?: No Immunizations Fluarix 4390-8060 (PF) 45 mcg (15 mcg x 3)/0.5 mL IM syringe Performing Provider: Yael Talbot MD [facility] Administered by: DOM Matos on 05/03/25 10:47 Dose Route Admin Location Dispensed Lot Number Expiration Date [facility] Coverage Specialist 0.5 mL IM Left Deltoid 0.5 mL [id number] 01/24/26 80319-795-52 [employer] VIS Given Date VIS Provided VIS Publication Date 05/03/25 Single Vaccine 24 Eligibility Eligibility Date Funding Source Not [facility] Eligible 05/03/25 Private Coding Level of Care Code Est Pt Level 4 (77270) Complex EM visit Add On G2211 Diagnoses Mild recurrent major depression F33.0 Essential hypertension I10 Uncontrolled type 2 diabetes mellitus with hyperglycemia, with long-term current use of insulin E11.65; Z79.4 Chronic GERD K21.9 Urge urinary incontinence N39.41 Morbid obesity with BMI of 40.0-44.9, adult E66.01; Z68.41 Additional Codes PHQ-9 - 45694 - PHQ-9 Billing: Yes ([id number]) DENIS-7 Assessment Billing - DENIS-7 Assessment Tool: DENIS-7 Assessment 69782 ([id number]) Time Spent (min) 22 Assessment & Plan Assessment & Plan (1) Mild recurrent major depression: Code(s): F33.0 - Major depressive disorder, recurrent, mild Category: Medical (2) Essential hypertension: Code(s): I10 - Essential (primary) hypertension Category: Medical (3) Uncontrolled type 2 diabetes mellitus with hyperglycemia, with long-term current use of insulin: Code(s): E11.65 - Type 2 diabetes mellitus with hyperglycemia; Z79.4 - roasterman (current) use of insulin Category: Medical (4) Chronic GERD: Code(s): K21.9 - Gastro-esophageal reflux disease without esophagitis Category: Medical (5) Urge urinary incontinence: Code(s): N39.41 - Urge incontinence Category: Medical (6) Morbid obesity with BMI of 40.0-44.9, adult: Code(s): E66.01 - Morbid (severe) obesity due to excess calories; Z68.41 - Body mass index [BMI] 40.0-44.9, adult Category: Medical Plan Plan Patient was informed and verbally consented to the use of an ambient scribe for clinic note documentation during this visit. 1. Diabetes Mellitus The patient's diabetes management includes metformin 1000 mg twice daily and Trulicity 4.5 mg once weekly. Her hemoglobin A1c is currently 8.8%, indicating a need for improved glycemic control. A follow-up laboratory test is planned in four months to reassess her glycemic status. 2. Hypertension Hypertension is managed with amlodipine 5 mg, hydrochlorothiazide 25 mg, and losartan. Her blood pressure is currently 138/86 mmHg, which is within acceptable limits. 3. Hyperlipidemia The patient is on atorvastatin 80 mg and ezetimibe 10 mg for hyperlipidemia management. Her LDL cholesterol levels have been above the target of 70 mg/dL. 4. Depression With Anxiety The patient is taking escitalopram 5 mg for depression with anxiety. 5. Urinary Incontinence Urinary incontinence is managed with Myrbetriq. 6. Gastroesophageal Reflux Disease The patient uses omeprazole as needed for gastroesophageal reflux disease. Orders: Orders Microalbumin, Random (w Creat) 4 Months R80.9 - Proteinuria, unspecified Vitamin B12 and Folate 4 Months E53.8 - Deficiency of other specified B group vitamins Comprehensive Blakely. Panel Fast 4 Months E11.65 - Type 2 diabetes mellitus with hyperglycemia, Z79.4 - [facility] (current) use of insulin Influenza [id number] Immunization Today Z23 - Encounter for immunization Lipid Panel 4 Months E78.5 - Hyperlipidemia, unspecified Vitamin D 25-OH Total 4 Months E55.9 - Vitamin D deficiency, unspecified Thyroid Stimulating Hormone 4 Months C73 - Malignant neoplasm of thyroid gland Medications: New carbamide peroxide 6.5% (Murine Ear) 5 drps otic (ears) DAILY PRN 15 mL 2RF cerumen impaction 4 days Refilled triamcinolone acetonide 0.025% 1 appl topical BID 15 grams 1RF 7 days
--- OUTSIDE RECORDS SUMMARY | 2025-05-03 11:47 | XMS_ITS | Patient Health Record ---
Author Organization [facility] Address [address] [place] [address] Care Team Providers Care Production Repairer Name Role Phone Ny Hoyos Primary Care Provider Unavail able Leland Dickinson Unavailable [phone] Reason For Referral No Information Medications Medication [...] Status W/U Status Risk Notes Problem Constipation (84840202) Constipation (564.00) Active confirmed Problem Dysphagia (12854761) Dysphagia (787.20) Active confirmed Problem Colon cancer screening (552705213) Colon cancer screening (V76.51) Active confirmed Problem Liver function tests abnormal (763579698) Abnormal liver function tests (790.6) Active confirmed Problem Computed tomography of abdomen abnormal (finding) (99102176548634 107) Abnormal computed tomography of gastrointestinal tract (793.4) Active confirmed Plan Of Treatment Pending Test Test Name Order Date XR BARIUM SWALLOW-ESOPHAGUS 03/17/2014 Future Test Test Name Order Date COLONOSCOPY 03/17/2014 Insurance Providers Payer Name Payer Address Payer Phone Subscriber Number Group Number Insured Name Patient Relationship to Insured Coverage Start Date Coverage End Date [facility] [address] [facility] [place] [id number] LION MARTÍNEZ Self - patient is the insured MED[place] OF [place] [address] [place] [phone] [id number] LION MARTÍNEZ Self - patient is the insured Medical (General) History Medical History History ICD Code NIDDM Hypertension Cancer of thyroid--thyroidectomy at [facility] in approx. 2010 Denies ID,CVA,Lung disease,renal disease Constipation Sleep apnea-uses CPAP at [...]
== END 2025-05-03 10:51 | disposition home or self-care (01) ==
LOC: HO.HMCH 10:02
PROVIDERS: PCP Internal Medicine; Visit Provider Internal Medicine
DX: E11.65 Type 2 diabetes mellitus with hyperglycemia (principal); Z79.4 Long term (current) use of insulin; E66.01 Morbid (severe) obesity due to excess calories; Z68.41 Body mass index [BMI] 40.0-44.9, adult; F33.0 Major depressive disorder, recurrent, mild; I10 Essential (primary) hypertension; K21.9 Gastro-esophageal reflux disease without esophagitis; N39.41 Urge incontinence; Z23 Encounter for immunization

== ENCOUNTER → 2025-05-03 10:02 | Outpatient (BNVA) | payer OTHER, SELFPAY | PROVIDERS: PCP Student in an Organized Health Care Education/Training Program; Visit Provider Internal Medicine | DX: E11.65 Type 2 diabetes mellitus with hyperglycemia (principal); I10 Essential (primary) hypertension; E78.5 Hyperlipidemia, unspecified; F33.0 Major depressive disorder, recurrent, mild; K21.9 Gastro-esophageal reflux disease without esophagitis; N39.41 Urge incontinence; E66.01 Morbid (severe) obesity due to excess calories; E53.8 Deficiency of other specified B group vitamins; E55.9 Vitamin D deficiency, unspecified; C73 Malignant neoplasm of thyroid gland; Z23 Encounter for immunization; Z79.4 Long term (current) use of insulin; Z68.41 Body mass index [BMI] 40.0-44.9, adult | CPT/HCPCS: 90471; 90656; 96127; 99212 ==

== ENCOUNTER 2025-05-12 10:41 | Outpatient (AMB) | payer OTHER, SELFPAY ==
[2025-05-12 11:00] VITALS: BMI 41.5
--- NOTE | 2025-05-12 11:00 | MHC.OFFVIS ---
Vital Signs 05/12/25 11:00 Height 5 ft 4 in Weight 242 lb BMI 41.5 Intake Visit Reasons: Type II diabetes Intake Note: Crystal is a 69 year old female who presents to the office today for a new patient visit referred by her PCP Radha Chavira for Type II diabetes. She states her sugars from this morning was 120 and her last reported A1c was -. She denies numbness in her feet but she feels occasional tingling in both her feet. She reports stepping on glass and a shard had gone in the lateral aspect of the foot and it has since been removed, however she still feels like there is glass in her foot. She denies nausea, vomiting, dizziness, or headaches recently. Allergies enalapril (ENALAPRIL) Allergy (Intermediate, Verified 05/12/25 11:01) Cough cephalexin (From KEFLEX) Allergy (Mild, Verified 05/12/25 11:01) rash ciprofloxacin (CIPROFLOXACIN) Allergy (Mild, Verified 05/12/25 11:01) HIVES,RASH levothyroxine sodium (LEVOTHYROXINE SODIUM) Allergy (Mild, Verified 05/12/25 11:01) RASH WITH GENERIC MED nitrofurantoin (NITROFURANTOIN) Allergy (Mild, Verified 05/12/25 11:01) RASH Penicillins (PENICILLINS) Allergy (Mild, Verified 05/12/25 11:01) RASH sulfamethoxazole (From BACTRIM) Allergy (Mild, Verified 05/12/25 11:01) rash trimethoprim (From BACTRIM) Allergy (Mild, Verified 05/12/25 11:01) rash corn Allergy (Verified 05/12/25 11:01) Itching ALL GENERIC MEDS Allergy (Mild, Uncoded 05/03/25 10:32) Rash SHRIMP Allergy (Unknown, Uncoded 05/03/25 10:32) Unknown Medication List - Last Reconciled 05/12/25 by Janice Wiggins DPM acetaminophen (Tylenol Extra Strength) 500 mg PO Q6H PRN 30 days [adult diapers As directed] [air conditioner As directed] amlodipine 5 mg PO DAILY 90 days atorvastatin 80 mg PO BEDTIME 90 days azelastine 1 spray intranasal BID blood sugar diagnostic (FreeStyle Lite Strips) As directed tests 2X/day blood-glucose meter (FreeStyle Lite Meter kit) As directed cane As directed carbamide peroxide 6.5% (Murine Ear) 5 drps otic (ears) DAILY PRN 4 days clotrimazole 1% 1 appl topical DAILY commode (bedside commode) As directed [compression stockings As directed] diclofenac sodium 1% 2 grams topical QID 1 month dicyclomine 20 mg PO TID 30 days diphenhydramine HCl (Banophen) 25 mg PO BEDTIME PRN 30 days disposable gloves (Biobrane Gloves Large) As directed dulaglutide (Trulicity) 4.5 mg (0.5 mL) subcut QWEEK escitalopram oxalate 5 mg PO DAILY ezetimibe 10 mg PO DAILY 90 days glucose (Dex4 Glucose) 16 grams (4 x 4 gram) PO Q15M PRN humidifiers As directed hydrochlorothiazide 25 mg PO DAILY 90 days NS ibuprofen 400 mg PO Q8H PRN 30 days lancets (FreeStyle Lancets) use BID as directed to check blood glucose Lantus Solostar U-100 Insulin (insulin glargine) 25 units (0.25 mL) subcut DAILY NS levothyroxine (Synthroid) 175 mcg PO DAILY lidocaine 5% 1 patch topical DAILY losartan 100 mg PO DAILY 90 days meloxicam 15 mg PO DAILY metformin 1,000 mg PO BID mirabegron ER (Myrbetriq) 50 mg PO DAILY montelukast 10 mg PO DAILY 30 days omeprazole 20 mg PO DAILY 90 days pen needle, diabetic 1 ea subcut DAILY [pillow As directed] plecanatide (Trulance) 3 mg PO DAILY [powerseat lift chair As directed] ramelteon 8 mg PO DAILY [shower head As directed] silver sulfadiazine 1% 1 appl topical DAILY 2 weeks [toilet seat elevator As directed] triamcinolone acetonide 0.025% 1 appl topical BID 7 days underpads (Bed Underpads) Use 1 to 3 once a day prn walker with seat and wheels [wipes As directed] HPI Comments Details: The patient is a 69-year-old female with a past medical history as seen below presenting with left foot pain, right foot itching, and a diabetic foot exam. Patient states her blood glucose this morning was 120 mg/dL. The left foot pain is described as sharp and has been present since a previous incident involving glass in the foot. The pain persists despite the removal of the glass, and it is no longer visible on x-ray after foreign body removal. The patient also reports itching of the skin on the right foot in the area of the hallux, which has been ongoing for an unspecified duration. The patient has a history of varicose veins and states she has not been wearing compression socks. She denies any other pedal concerns. [facility] Medical History Hypersomnia Snorings Isolated tremor of head Diabetes mellitus DM2 (diabetes mellitus, type 2) Pain of left thumb Right upper quadrant pain AC (acromioclavicular) arthritis Hypertension Elevated LFTs Osteoarthritis (arthritis due to wear and tear of joints) Physical exam Colon cancer screening Allergic reaction Back pain Right arm pain Vulvar irritation Encounter for annual routine gynecological examination Impacted cerumen of left ear Rash Lower back pain Abnormal laboratory test result Back pain Mild recurrent major depression Thyroid cancer Depression Anxiety Sacroiliac joint disease Lumbar spondylosis GERD without esophagitis Acquired hypothyroidism Benign essential hypertension Constipation Obesity (BMI 30-39.9) Dyslipidemia correction (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 Mother Diabetes Sister Lung cancer Brother H/O heart surgery Diabetes Son Epilepsy Social History Household Members: Significant Other Housing: Apartment Alcohol intake: never Patient Tobacco Use Status: Never used Tobacco e-Cigarette/Vaping Use: Never Used Second Hand Smoke Exposure: No service: No Current occupational status: disabled Gender identity: Female Cognitive needs: Yes Hearing needs: No Vision needs: No Female Reproductive History Menstrual Age of Menarche: 13 Review of Systems Const Details: - Musculoskeletal: Reports sharp pain in the lateral aspect of the left foot. Denies numbness, tingling, or burning. - Integumentary: Reports itching of the skin on the right foot. All systems reviewed & are unremarkable except as noted in HPI and below Physical Exam Vital Signs: BMI result Body Mass Index 41.5 Extrem Other: B/L LE Focused Physical Exam: Derm: No open lesions, abrasions, or wounds noted. Toenails x10 noted to be slightly thickened but length is WNL. No ecchymosis noted. Minimal erythema noted to the dorsal midfoot of the right foot. No clinical signs of infection. No maceration or peeling of skin noted. Vasc: DP pulses palpable. PT pulses nonpalpable. CFT < 3 secs. Temperature gradient warm to warm. Varicosities noted, worse to the LLE. Minimal edema noted. Pedal hair absent. Neuro: Protective sensations grossly intact to light touch and monofilament testing. MSK: Pain on palpation to the plantar lateral aspect of the left foot in the area of the previous foreign body (glass). ROM of the forefoot, hindfoot, and ankles WNL. No crepitus or fluctuance noted. Mild antalgic gait noted unassisted. No other gross abnormalities noted. Office Procedures Diabetic Foot Exam G9226 - Diabetic Foot Exam Results Reviewed Results Reviewed: Laboratory Tests 03/25/25 03/25/25 10:47 10:51 Glucose (Clinic) 278 H Hgb A1c (Clinic) 8.8 H Ordered left foot CT scan to be obtained prior to next visit. Podiatry read of Left foot xray (11/29/23): On oblique view calcification/bone abnormality noted on the lateral aspect of the CCJ. Bone spur noted to the posterior and plantar aspect of the calcaneus. Accessory bone noted to the medial aspect of the TNJ. Left foot xray (11/29/23): FINDINGS: No evidence of acute fracture or malalignment. Redemonstrated accessory navicular bone and os peroneum. Joint spaces are preserved. Normal bone mineralization. Unchanged moderate posterior and small plantar calcaneal enthesophytes. Unchanged soft tissue prominence of the lateral/forefoot overlying the fifth metatarsal heads, may be physiologic. IMPRESSION: 1. No evidence of acute fracture or malalignment of the left foot or significant interval change compared to 11/24/2023. 2. Unchanged moderate posterior and small plantar calcaneal enthesophytes. Assessment & Plan Assessment & Plan (1) Uncontrolled type 2 diabetes mellitus with hyperglycemia, with long-term current use of insulin: Code(s): E11.65 - Type 2 diabetes mellitus with hyperglycemia; Z79.4 - correction (current) use of insulin Category: Medical (2) Paresthesia of bilateral legs: Code(s): R20.2 - Paresthesia of skin Category: Medical (3) Foreign body in left foot: Code(s): S90.852A - Superficial foreign body, left foot, initial encounter Category: Medical Qualifiers: Encounter type: subsequent encounter Qualified Code(s): S90.852D - Superficial foreign body, left foot, subsequent encounter (4) Tinea pedis of right foot: Code(s): B35.3 - Tinea pedis Category: Medical Plan Patient was informed and verbally consented to the use of an ambient scribe for clinic note documentation during this visit. I discussed with the patient the possibility of a retained foreign body in the foot and the need for a CT scan to confirm this. We talked about the use of Clotrimazole cream to address the itching, likely due to a fungal infection. I explained the importance of wearing compression socks to manage varicose veins and prevent swelling and ulceration. - Ordered a CT scan to evaluate for any remaining foreign bodies in the foot. - Prescribed Clotrimazole cream for the treatment of suspected tinea pedis causing skin itching. - Recommend wearing compression socks to manage varicose veins and prevent complications. - Avoid barefoot walking and wear supportive shoe gear. RTC in 9 weeks for routine nail care and evaluation of CT scan. 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
== END 2025-05-12 11:24 | disposition home or self-care (01) ==
LOC: HO.HPODS 10:42
PROVIDERS: PCP Internal Medicine; Visit Provider Student in an Organized Health Care Education/Training Program
DX: E11.65 Type 2 diabetes mellitus with hyperglycemia (principal); Z79.4 Long term (current) use of insulin; R20.2 Paresthesia of skin; S90.852D Superficial foreign body, left foot, subsequent encounter; B35.3 Tinea pedis
CPT/HCPCS: 99204; G9226

== ENCOUNTER → 2025-05-12 10:41 | Outpatient (BNVA) | payer OTHER, SELFPAY | PROVIDERS: PCP Internal Medicine; Visit Provider Student in an Organized Health Care Education/Training Program | DX: E11.65 Type 2 diabetes mellitus with hyperglycemia (principal); Z79.4 Long term (current) use of insulin; R20.2 Paresthesia of skin; S90.852D Superficial foreign body, left foot, subsequent encounter; B35.3 Tinea pedis | CPT/HCPCS: 99202 ==

== ENCOUNTER 2025-05-16 10:35 | Outpatient (AMB) | payer OTHER, SELFPAY ==
[2025-05-16 10:37] VITALS: BP 132/74; PULSE 78; TEMP 36.8; O2SAT 97; BMI 41.7
--- NOTE | 2025-05-16 10:37 | AM.OFFWIN_ITS ---
Intake Vital Signs 05/16/25 10:37 Height 5 ft 4 in Weight 243 lb BMI 41.7 BP 132/74 Blood Pressure Location Lt brachial Position Sitting Pulse 78 Pulse Source Pulse Oximeter Temp 98.2 F Temp Source Oral Pulse Oximetry (%) 97 Oxygen Delivery Method Room Air Intake Visit Reasons: EP-body rash Intake Note: Patient presents for rash under both breasts and spots on back, abdomen, arms & legs. 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 Allergies enalapril (ENALAPRIL) Allergy (Intermediate, Verified 05/16/25 10:58) Cough cephalexin (From KEFLEX) Allergy (Mild, Verified 05/16/25 10:58) rash ciprofloxacin (CIPROFLOXACIN) Allergy (Mild, Verified 05/16/25 10:58) HIVES,RASH levothyroxine sodium (LEVOTHYROXINE SODIUM) Allergy (Mild, Verified 05/16/25 10:58) RASH WITH GENERIC MED nitrofurantoin (NITROFURANTOIN) Allergy (Mild, Verified 05/16/25 10:58) RASH Penicillins (PENICILLINS) Allergy (Mild, Verified 05/16/25 10:58) RASH sulfamethoxazole (From BACTRIM) Allergy (Mild, Verified 05/16/25 10:58) rash trimethoprim (From BACTRIM) Allergy (Mild, Verified 05/16/25 10:58) rash corn Allergy (Verified 05/16/25 10:58) Itching ALL GENERIC MEDS Allergy (Mild, Uncoded 05/16/25 10:58) Rash SHRIMP Allergy (Unknown, Uncoded 05/16/25 10:58) Unknown HPI HPI Comments History of Present Illness Details History - The patient is a 69-year-old English s peaking female presenting with the bug trimmer for chronic pruritus and allergic reactions. - She has a history of allergies to dust , previously managed with injections. - Chronic itching persists despite treat ment with triamcinolone cream and a fungal cream. - The patient experiences increased itch ing post-bathing and has used Benadryl, which induces drowsiness. - She has monetlukast as well. - She was not clear whether she sees an stakes player or commutator assembler in the past. - She has been itching all over. - She has no new joint pain, CP, SOB, wh eezing abd pain, n/v/d. Physical Exam General: Cooperative, healthy appearing, comfortable, no acute distress and well developed Orientation: Patient oriented x3 Limitations: No limitations Mouth: normal, moist oral mucosa Neck: Normal visual inspection and Yes full ROM Respiratory: Normal respiratory effort and able to speak in complete sentences. Clear to auscultation bilaterally. No w/r/r noted. Cardiovascular: RRR, no m/r/g noted. Normal S1 and S2. No m/r/g noted. Skin: Dry skin noted. Dark hyperpigmented round macules noted on the left arm. No lesions, pustules, hives. No erythema noted. No warmth or induration noted. Patient was informed and verbally consented to the use of an ambient scribe for clinic note documentation during this visit [facility] Medical History (Updated 05/12/25 @ 11:22 by Janice Wiggins DPM) Tinea pedis of right foot Paresthesia of bilateral legs Hypersomnia Snorings Isolated tremor of head Diabetes mellitus DM2 (diabetes mellitus, type 2) Pain of left thumb Right upper quadrant pain AC (acromioclavicular) arthritis Hypertension Elevated LFTs Osteoarthritis (arthritis due to wear and tear of joints) Physical exam Colon cancer screening Allergic reaction Back pain Right arm pain Vulvar irritation Encounter for annual routine gynecological examination Impacted cerumen of left ear Rash Lower back pain Abnormal laboratory test result Back pain Mild recurrent major depression Thyroid cancer Depression Anxiety Sacroiliac joint disease Lumbar spondylosis GERD without esophagitis Acquired hypothyroidism Benign essential hypertension Constipation Obesity (BMI 30-39.9) 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 Mother Diabetes Sister Lung cancer Brother H/O heart surgery Diabetes Son Epilepsy Social History Household Members: Significant Other Housing: Apartment Alcohol intake: never Patient Tobacco Use Status: Never used Tobacco e-Cigarette/Vaping Use: Never Used Second Hand Smoke Exposure: No service: No Current occupational status: disabled Gender identity: Female Cognitive needs: Yes Hearing needs: No Vision needs: No Female Reproductive History Menstrual Age of Menarche: 13 Review of Systems Const All systems reviewed & are unremarkable except as noted in HPI and below Physical Exam Vital Signs: Last Vital Signs Temp 98.2 F 05/16/25 10:37 Pulse 78 05/16/25 10:37 BP 132/74 05/16/25 10:37 Pulse Ox 97 05/16/25 10:37 Oxygen Delivery Method Room Air 05/16/25 10:37 BMI result Body Mass Index 41.7 Assessment & Plan Assessment & Plan (1) Rash: Code(s): R21 - Rash and other nonspecific skin eruption Plan Most likely contact dermatitis vs allergic dermatitis vs allergic reaction vs chronic dermatitis Plan - Prescribe prednisone to manage itching associated with allergic reactions. - Prescribe Pepcid as an adjunct to alleviate itching. - continue with the creams that she was prescribed. - Advise follow-up with primary care physician to reassess and manage chronic pruritus and allergies. - Follow up with PCP for referral for commutator assembler and stakes player Medications: New famotidine (Pepcid) 20 mg PO DAILY 14 tabs 0RF 14 days prednisone 40 mg (2 x 20 mg) PO DAILY 10 tabs 0RF 5 days Coding Level of Care Code Est Pt Level 3 (77224) Diagnoses Rash R21
== END 2025-05-16 12:25 | disposition home or self-care (01) ==
PROVIDERS: PCP Internal Medicine; Visit Provider Physician Assistant Medical
DX: R21 Rash and other nonspecific skin eruption (principal)

== ENCOUNTER → 2025-05-16 10:35 | Outpatient (BNVA) | payer OTHER, SELFPAY | PROVIDERS: PCP Internal Medicine; Visit Provider Physician Assistant Medical | DX: E11.9 Type 2 diabetes mellitus without complications (principal); L29.9 Pruritus, unspecified | CPT/HCPCS: 99212 ==

== ENCOUNTER 2025-05-19 10:52 | Emergency (ER) | payer OTHER, SELFPAY ==
[2025-05-19 11:02] VITALS: BP 193/77; PULSE 82; RESP 18; TEMP 36.1; O2SAT 96; BMI 39.6
--- NOTE | 2025-05-19 11:10 | ED_ITS ---
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 Recently seen at urgent care and was prescribed prednisone and famotidine which she has not picked up. States her glucose levels have been good, was 124 this morning. Also reports similar rash to groin area. Denies fevers, chills, drainage from rash. MD complaint: rash Onset (ago): month(s) Related Data Home Medications ?Medication ?Instructions ?Recorded ?Confirmed azelastine 137 mcg (0.1 %) nasal 1 spray intranasal BI D 07/02/22 05/12/25 spray ramelteon 8 mg tablet 8 mg PO DAILY 12/27/2205/12 mirabegron 50 mg tablet,extended 50 mg PO DAILY 05/12/25 release 24 hr (Myrbetriq) escitalopram oxalate 5 mg tablet 5 mg PO DAILY 5 05/12/25 levothyroxine 175 mcg tablet 175 mcg PO DAILY 11/10/24 05/12/25 (Synthroid) Previous Rx's ?Medication ?Instructions ?Recorded disposable gloves (Biobrane Gloves #100 ea 12/31/22 Large) adult diapers #240 ea 01/07/23 underpads (Bed Underpads) #150 ea 01/07/23 wipes #200 ea 01/07/23 powerseat lift chair #1 ea 06/25/23 dicyclomine 20 mg tablet 20 mg PO TID 30 days #90 tab s 10/17/23 plecanatide 3 mg tablet (Trulance) 3 mg PO DAILY #30 t abs 10/17/23 toilet seat elevator #1 ea 12/01/23 air conditioner #1 ea 01/26/24 commode (bedside commode) #1 ea 06/01/24 ibuprofen 400 mg tablet 400 mg PO Q8H PRN pain 30 da ys #90 06/11/24 tabs humidifiers #1 ea 07/13/24 pillow #1 ea 07/13/24 hydrochlorothiazide 25 mg tablet 25 mg PO DAILY 90 day s #90 tabs 08/27/24 blood-glucose meter (FreeStyle #1 ea 09/20/24 Lite Meter kit) glucose 4 gram chewable tablet 16 g (4 x 4 gram) PO Q1 5M PRN 09/20/24 (Dex4 Glucose) hypoglycemia #100 tabs compression stockings #1 ea 11/10/24 lidocaine 5 % topical patch 1 patch topical DAILY #15 ea 11/13/24 Lantus Solostar U-100 Insulin 100 25 unit (0.25 mL) snydre bcut DAILY #15 11/19/24 unit/mL (3 mL) subcutaneous pen mL (insulin glargine) pen needle, diabetic 32 gauge x 1 ea subcut DAILY #30 ea 11/19/2432 cane #1 ea 11/22/24 dulaglutide 4.5 mg/0.5 mL 4.5 mg (0.5 mL) subcut QWEEK #2 mL 12/24/24 subcutaneous pen injector ([facility]) amlodipine 5 mg tablet 5 mg PO DAILY 90 days #90 ta bs 12/29/24 diclofenac sodium 1 % topical gel 2 g topical QID 1 mo nth #100 grams 01/02/25 ezetimibe 10 mg tablet 10 mg PO DAILY 90 days #90 t abs 01/03/25 losartan 100 mg tablet 100 mg PO DAILY 90 days #90 tabs 01/03/25 silver sulfadiazine 1 % topical 1 appl topical DAILY 2 weeks #20 01/06/25 cream grams atorvastatin 80 mg tablet 80 mg PO BEDTIME 90 days #90 tabs 01/21/25 shower head #1 ea 01/28/25 walker #1 ea 01/28/25 blood sugar diagnostic (FreeStyle #100 ea 02/16/25 Lite Strips) meloxicam 15 mg tablet 15 mg PO DAILY #30 tabs 11/19 metformin 1,000 mg tablet 1,000 mg PO BID #180 tabs montelukast 10 mg tablet 10 mg PO DAILY 30 days #30 t abs 03/26/25 lancets 28 gauge (FreeStyle #100 ea 04/04/25 Lancets) omeprazole 20 mg capsule,delayed 20 mg PO DAILY 90 day s #90 caps 04/26/25 release acetaminophen 500 mg tablet 500 mg PO Q6H PRN fever or pain 30 04/29/25 (Tylenol Extra Strength) days #120 tabs diphenhydramine HCl 25 mg capsule 25 mg PO BEDTIME PRN allergic 05/01/25 (Banophen) reaction 30 days #20 caps carbamide peroxide 6.5 % ear drops 5 drp otic (ears) D AILY PRN 05/03/25 (Murine Ear) cerumen impaction 4 days #15 mL triamcinolone acetonide 0.025 % 1 appl topical BID 7 d ays #15 grams 05/03/25 topical cream clotrimazole 1 % topical cream 1 appl topical DAILY Ti alva Pedis 05/12/25 #30 grams famotidine 20 mg tablet (Pepcid) 20 mg PO DAILY 14 day s #14 tabs 05/16/25 prednisone 20 mg tablet 40 mg (2 x 20 mg) PO DAILY 5 days 05/16/25 #10 tabs nystatin 100,000 unit/gram topical 1 appl topical TID #30 grams 05/19/25 cream Allergies Allergy/AdvReac Type Severity Reaction Status Date / Time enalapril (ENALAPRIL) Allergy Intermediate Cough Verified 05/19/25 11:11 cephalexin (From KEFLEX) Allergy Mild rash Verified 05/19/25 11:11 ciprofloxacin (CIPROFLOXACIN) Allergy Mild HIVES,RASH Verified 05/19/25 11:11 levothyroxine sodium Allergy Mild RASH WITH Verified 05/19/25 11:11 (LEVOTHYROXINE SODIUM) GENERIC MED nitrofurantoin Allergy Mild RASH Verified 05/19/25 11:11 (NITROFURANTOIN) Penicillins (PENICILLINS) Allergy Mild RASH Verified 05/19/25 11:11 sulfamethoxazole (From Allergy Mild rash Verified 05/19/25 11:11 BACTRIM) trimethoprim (From BACTRIM) Allergy Mild rash Verified 05/19/25 11:11 corn Allergy Itching Verified 05/19/25 11:11 ALL GENERIC MEDS Allergy Mild Rash Uncoded 05/16/25 10:58 SHRIMP Allergy Unknown Unknown Uncoded 05/16/25 10:58 Review of Systems 2 Review of Systems: as per hpi Yes all other systems are reviewed and are negative Constitutional: Constitutional: Reports as per HPI [facility] Past Medical History Medical History (Updated 05/19/25 @ 12:24 by Kelly Anne NP) Tinea pedis of right foot Paresthesia of bilateral legs Hypersomnia Snorings Isolated tremor of head Diabetes mellitus DM2 (diabetes mellitus, type 2) Pain of left thumb Right upper quadrant pain AC (acromioclavicular) arthritis Hypertension Elevated LFTs Osteoarthritis (arthritis due to wear and tear of joints) Physical exam Colon cancer screening Allergic reaction Back pain Right arm pain Vulvar irritation Encounter for annual routine gynecological examination Impacted cerumen of left ear Rash Lower back pain Abnormal laboratory test result Back pain Mild recurrent major depression Thyroid cancer Depression Anxiety Sacroiliac joint disease Lumbar spondylosis GERD without esophagitis Acquired hypothyroidism Benign essential hypertension Constipation Obesity (BMI 30-39.9) 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 Mother Diabetes Sister Lung cancer Brother H/O heart surgery Diabetes Son Epilepsy Social History Social History Household Members: Significant Other Housing: Apartment Alcohol intake: never Patient Tobacco Use Status: Never used Tobacco Smoked in Last 30 Days: No e-Cigarette/Vaping Use: Never Used Second Hand Smoke Exposure: No Use of substances other than those prescribed or required for medical reasons: No Advance Directives: No Advance Directives Information Provided: Yes service: No Current occupational status: disabled Gender identity: Female Cognitive needs: Yes Hearing needs: No Vision needs: No Physical Exam 2 Vital Signs: Vital Signs: Last Vital Signs Temp 97.0 F 05/19/25 11:02 Pulse 82 05/19/25 11:02 Resp 18 05/19/25 11:02 BP 193/77 H 05/19/25 11:02 Pulse Ox 96 05/19/25 11:02 O2 Del Method Room Air 05/19/25 11:02 BMI result Body Mass Index 39.6 Vital signs have been reviewed and appear to be correct. Blood pressure elevated. Heart rate normal. Respiratory rate normal. Temperature normal. Oxygen saturation normal. Const: General: cooperative, healthy appearing and no acute distress O rientation/consciousness: oriented to person, oriented to place, oriented to time and patient oriented x3 Limitations: no limitations HEENT: Head: Yes normocephalic and Yes atraumatic Ears: external ears normal General nose exam: Normal external nose present Face and sinus: Yes face symmetric Mouth: oropharynx normal and moist mucous membranes Throat: Yes uvula midline Eyes: Pupils: Equal, round and reactive pupils present Neck: Neck: Yes normal visual inspection and Yes supple Chest: Chest palpation & inspection: rash (moist, hyperpigmented rash under bilateral breasts) Chest/axillae images: 1. rash as noted 2. rash as noted Resp: Effort & Inspection: normal respiratory effort and able to speak in complete sentences Auscultation: clear to auscultation bilaterally Cardio: Rate: regular rate Rhythm: regular rhythm Heart sounds: S1 normal heart sound present and S2 normal heart sound present GI: Palpation (GI): Soft to palpation and nontender Auscultation: n ormoactive bowel sounds : Other: moist, hyperpigmented rash to bilateral groin areas General: Yes no CVA tenderness Back/Spine/Pelvis: Back: no CVA tenderness Skin: General skin exam: elasticity normal and turgor normal Neuro: General: oriented to person, oriented to place, oriented to time, patient oriented x3, moves all extremities, no focal motor deficits and CN's II- XI intact bilaterally Cranial nerves: Yes Equal, round and reactive pupils present Cognition (Neuro): normal cognition Extrem: General: Yes full ROM, Yes no pedal edema and Yes no calf tenderness Psych: Mental Status: mental status grossly normal Affect: normal affect Thought process: Normal thought process present Course Course Course Narrative: This is an RME: Additional HPI, ROS, PE not included below will be deferred to primary provider. RME assessment and note performed by: Isela Vera PA-C This is a 21-bcln-loh-female who presents to the ER with complaints of rash under BL breasts. Seen at several days ago, unable to picker tender rx's as they are still not available at the pharmacy. Unable to visualize in triage secondary to limited privacy. Plan: exam Medical Decision Making Medical Decision Making [facility] Narrative: Patient is a 69 year old Turkmen speaking female with history of DM, obesity, cognitive impairment, GERD, Justice, HTN presenting to the emergency department with complaint of rash under bilateral breasts for the past month. On exam patient is awake, A+Ox3, BP elevated, patient did not take bP medication toay, VS otherwise WNL, afebrile, normal neurological exam without focal deficits, physical exam findings as above. Given reported symptoms and physical exam findings, initial differential includes but is not limited to candidal intertrigo, tinea. Do not suspect TEN/SJS, DRESS, TTP/DIC, necrotizing fasciitis, meningococcemia, SSSS, TSS, anaphylaxis. Will treat with nystatin cream, advised patient to keep affected areas open to air as much as possible, use clothing or other dry cloth as a barrier. Follow up with PCP. Return precautions discussed. Patient verbalized understanding of and agreement with plan. Differential Diagnosis Differential Diagnoses: The differential diagnosis associated with the presentation includes As per [facility] Admission/Observation Consideration of admission/observation: Escalation of care including admission/observation considered Patient would have been admitted to the hospital and transferred to appropriate facility had their clinical presentation warranted hospital admission. External Record Review External record reviewed: Inpatient record, Office record and Outpatient record Prescription Management I considered prescription management with: Other Chronic Conditions Patient?s care impacted by: Diabetes Discharge Plan Discharge Clinical Impression: Candidal intertrigo Patient Disposition: Home, Self-Care Instructions: Skin Yeast Infection (ED) Additional Instructions: You were evaluated in the emergency department today for a rash. Your rash is due to a yeast infection on your skin. You have been prescribed an antifungal cream to apply to the affected areas. Use this as prescribed. You should leave the areas with rash open to air as much as possible as discussed. Follow up with your primary care provider for ongoing symptoms. Return to the emergency department if you develop any redness, warmth, swelling, fevers or any other new or concerning symptoms. Prescriptions: New nystatin 100,000 unit/gram cream 1 appl topical TID Qty: 30 0RF No Action (DME) disposable gloves [Biobrane Gloves Large] Misc See Rx Instructions .Route Qty: 100 6RF Rx Instructions: As directed (DME) adult diapers large See Rx Instructions .Route .MEDSUPPLY Qty: 240 11RF Rx Instructions: As directed (DME) underpads [Bed Underpads] Pad See Rx Instructions .Route Qty: 150 11RF Rx Instructions: Use 1 to 3 once a day prn (DME) wipes See Rx Instructions .Route .MEDSUPPLY Qty: 200 11RF Rx Instructions: As directed (DME) powerseat lift chair See Rx Instructions .Route .MEDSUPPLY Qty: 1 0RF Rx Instructions: As directed ([facility]) toilet seat elevator See Rx Instructions .Route .MEDSUPPLY Qty: 1 0RF Rx Instructions: As directed ([facility]) air conditioner See Rx Instructions .Route .MEDSUPPLY Qty: 1 0RF Rx Instructions: As directed ([facility]) bedside commode Kit See Rx Instructions .Route Qty: 1 0RF Rx Instructions: As directed ibuprofen 400 mg tablet 400 mg PO Q8H PRN (Reason: pain) 30 Days Qty: 90 0RF hydrochlorothiazide 25 mg tablet 25 mg PO DAILY 90 Days Qty: 90 4RF lidocaine 5 % adhesive patch,medicated 1 patch topical DAILY Qty: 15 0RF Rx Instructions: leave on most painful area for up to 12 hrs (DME) cane Device See Rx Instructions .Route Qty: 1 0RF Rx Instructions: As directed diclofenac sodium 1 % gel 2 g topical QID 30 Days Qty: 100 4RF Rx Instructions: apply to single elbow, wrist or hand; for hand includes palm/fingers/back of hand ezetimibe 10 mg tablet 10 mg PO DAILY 90 Days Qty: 90 1RF losartan 100 mg tablet 100 mg PO DAILY 90 Days Qty: 90 1RF silver sulfadiazine 1 % cream 1 appl topical DAILY 14 Days Qty: 20 0RF Rx Instructions: apply a 1.5 mm thickness atorvastatin 80 mg tablet 80 mg PO BEDTIME 90 Days Qty: 90 1RF (DME) walker Misc See Rx Instructions .Route Qty: 1 0RF Rx Instructions: with seat and wheels (DME) shower head See Rx Instructions .Route .MEDSUPPLY Qty: 1 0RF Rx Instructions: As directed (DME) FreeStyle Lite Strips Strip See Rx Instructions .Route Qty: 100 6RF Rx Instructions: As directed tests 2X/day meloxicam 15 mg tablet 15 mg PO DAILY Qty: 30 2RF montelukast 10 mg tablet 10 mg PO DAILY 30 Days Qty: 30 3RF (DME) lancets [FreeStyle Lancets] 28 gauge misc See Rx Instructions .ROUTE .MEDSUPPLY Qty: 100 3RF Rx Instructions: use BID as directed to check blood glucose omeprazole 20 mg capsule,delayed release(DR/EC) 20 mg PO DAILY 90 Days Qty: 90 0RF acetaminophen [Tylenol Extra Strength] 500 mg tablet 500 mg PO Q6H PRN (Reason: fever or pain) 30 Days Qty: 120 2RF diphenhydramine HCl [Banophen] 25 mg capsule 25 mg PO BEDTIME PRN (Reason: allergic reaction) 30 Days Qty: 20 2RF azelastine 137 mcg (0.1 %) aerosol,spray 1 spray intranasal BID ramelteon 8 mg tablet 8 mg PO DAILY Myrbetriq 50 mg tablet extended release 24 hr 50 mg PO DAILY Trulance 3 mg tablet 3 mg PO DAILY Qty: 30 6RF dicyclomine 20 mg tablet 20 mg PO TID 30 Days Qty: 90 1RF (DME) blood-glucose meter [FreeStyle Lite Meter] Kit See Rx Instructions .Route Qty: 1 0RF Rx Instructions: As directed glucose [Dex4 Glucose] 4 gram tablet,chewable 16 g PO Q15M PRN (Reason: hypoglycemia) Qty: 100 0RF Rx Instructions: until symptoms of low blood sugar are controlled pen needle, diabetic 32 gauge x 5/32 needle 1 ea subcut DAILY Qty: 30 11RF insulin glargine [Lantus Solostar U-100 Insulin] 100 unit/mL (3 mL) insulin pen 25 unit subcut DAILY Qty: 15 5RF metformin 1,000 mg tablet 1,000 mg PO BID Qty: 180 2RF Murine Ear 6.5 % drops 5 drp otic (ears) DAILY PRN (Reason: cerumen impaction) 4 Days Qty: 15 2RF triamcinolone acetonide 0.025 % cream 1 appl topical BID 7 Days Qty: 15 1RF clotrimazole 1 % cream 1 appl topical DAILY Qty: 30 1RF (DME) humidifiers Misc See Rx Instructions .Route Qty: 1 0RF Rx Instructions: As directed (DME) pillow See Rx Instructions .Route .MEDSUPPLY Qty: 1 0RF Rx Instructions: As directed amlodipine 5 mg tablet 5 mg PO DAILY 90 Days Qty: 90 1RF escitalopram oxalate 5 mg tablet 5 mg PO DAILY levothyroxine [Synthroid] 175 mcg tablet 175 mcg PO DAILY (DME) compression stockings See Rx Instructions .Route .MEDSUPPLY Qty: 1 0RF Rx Instructions: As directed Trulicity 4.5 mg/0.5 mL pen injector 4.5 mg subcut QWEEK Qty: 2 5RF prednisone 20 mg tablet 40 mg PO DAILY 5 Days Qty: 10 0RF famotidine [Pepcid] 20 mg tablet 20 mg PO DAILY 14 Days Qty: 14 0RF Print Language: Turkmen
--- NOTE | 2025-05-19 11:39 | MHC.EDTECH ---
pt brought into ED25, changed out of personal clothes into hospital gown. red rash noted on top of back, b/l feet, b/l shins, and under b/l breasts. Call mckay within reach
[2025-05-19 12:36] VITALS: BP 193/77; PULSE 82; RESP 18; TEMP 36.1; O2SAT 96
--- OUTSIDE RECORDS SUMMARY | 2025-05-19 15:00 | XMS_ITS | Patient Health Record ---
Author Organization [facility] Address [address] [place] [address] Care Team Providers Care Admitting Counselor Name Role Phone Ny Hoyos Primary Care Provider Unavail able Leland Dickinson Unavailable [phone] Reason For Referral No Information Medications Medication SIG (Take, Route, Frequency, Duration) Notes Start Date End Date Status MiraLax 1 1 capful in 8 ounces of water Orally Once or twice a day for constipation; Duration: 30 days 03/17/2014 Active Colace 100MG Active [...] Status W/U Status Risk Notes Problem Constipation (35493618) Constipation (564.00) Active confirmed Problem Dysphagia (93068142) Dysphagia (787.20) Active confirmed Problem Colon cancer screening (136303557) Colon cancer screening (V76.51) Active confirmed Problem Liver function tests abnormal (133941856) Abnormal liver function tests (790.6) Active confirmed Problem Computed tomography of abdomen abnormal (finding) (76224170329476 107) Abnormal computed tomography of gastrointestinal tract (793.4) Active confirmed Plan Of Treatment Pending Test Test Name Order Date XR BARIUM SWALLOW-ESOPHAGUS 03/17/2014 Future Test Test Name Order Date COLONOSCOPY 03/17/2014 Insurance Providers Payer Name Payer Address Payer Phone Subscriber Number Group Number Insured Name Patient Relationship to Insured Coverage Start Date Coverage End Date [facility] [address] [facility] [place] [id number] LION MARTÍNEZ Self - patient is the insured MEDICAID OF [employer] [address] [place] [phone] [id number] LION MARTÍNEZ Self - patient is the insured Medical (General) History Medical History History ICD Code NIDDM Hypertension Cancer of thyroid--thyroidectomy at [facility] in approx. 2010 Denies [place],CVA,Lung disease,renal disease Constipation Sleep apnea-uses CPAP at [...]
--- OUTSIDE RECORDS SUMMARY | 2025-05-19 15:00 | XMS_ITS | Clinical Summary ---
Author Organization [employer] Address [address] [place] [address] [address] [place] [address] Care Team Providers Care Pouncer Machine Name Role Phone Unavailable Primary Care Provider [...] - PCV) 01/12/2016 01/11/2015 COVID-19 Vaccine ( - season) 2025 08/05/2022, 07/30/2021, 11/15/2020, Additional history exists Influenza [...]
== END 2025-05-19 12:37 | disposition home or self-care (01) ==
PROVIDERS: Emergency Provider Emergency Medicine; PCP Internal Medicine
DX: L30.4 Erythema intertrigo (principal); R21 Rash and other nonspecific skin eruption
CPT/HCPCS: 99283; 99284

== ENCOUNTER → 2025-05-23 10:29 | Outpatient (REF) | payer OTHER, SELFPAY ==
--- OUTSIDE RECORDS SUMMARY | 2025-05-23 12:39 | XMS_ITS | Patient Health Record ---
Author Organization [facility] Address [address] [place] [address] Care Team Providers Care Pattern Gater Name Role Phone Ny Hoyos Primary Care Provider Unavail able Leland Dickinson Unavailable [phone] Reason For Referral No Information Medications Medication [...] Status W/U Status Risk Notes Problem Constipation (52656459) Constipation (564.00) Active confirmed Problem Dysphagia (84171094) Dysphagia (787.20) Active confirmed Problem Colon cancer screening (187626610) Colon cancer screening (V76.51) Active confirmed Problem Liver function tests abnormal (219203494) Abnormal liver function tests (790.6) Active confirmed Problem Computed tomography of abdomen abnormal (finding) (67760231541947 107) Abnormal computed tomography of gastrointestinal tract (793.4) Active confirmed Plan Of Treatment Pending Test Test Name Order Date XR BARIUM SWALLOW-ESOPHAGUS 03/17/2014 Future Test Test Name Order Date COLONOSCOPY 03/17/2014 Insurance Providers Payer Name Payer Address Payer Phone Subscriber Number Group Number Insured Name Patient Relationship to Insured Coverage Start Date Coverage End Date [facility] [address] [facility] [place] [id number] LION MARTÍNEZ Self - patient is the insured MEDICAID OF [employer] [address] [place] [phone] [id number] LION MARTÍNEZ Self - patient is the insured Medical (General) History Medical History History ICD Code NIDDM Hypertension Cancer of thyroid--thyroidectomy at [facility] in approx. 2010 Denies [place],CVA,Lung disease,renal disease Constipation Sleep apnea-uses CPAP at [...]
--- OUTSIDE RECORDS SUMMARY | 2025-05-23 12:39 | XMS_ITS | Clinical Summary ---
Author Organization [employer] Address [address] [place] [address] [address] [place] [address] Care Team Providers Care Slicing Machine Feeder Name Role Phone Unavailable Primary Care Provider [...]
== END ==
LOC: HO.SL 10:29
PROVIDERS: PCP Internal Medicine; Visit Provider Psychiatry & Neurology Neurology
DX: R06.83 Snoring (principal); G47.10 Hypersomnia, unspecified; R40.0 Somnolence
CPT/HCPCS: 95806

== ENCOUNTER → 2025-05-23 10:41 | Outpatient (BNV) | payer OTHER, SELFPAY | PROVIDERS: PCP Internal Medicine; Visit Provider Psychiatry & Neurology Neurology | DX: G47.33 Obstructive sleep apnea (adult) (pediatric) (principal) | CPT/HCPCS: 95806 ==

== ENCOUNTER 2025-06-17 09:41 | Outpatient (REF) | payer OTHER, SELFPAY ==
--- NOTE | ~2025-06-17 | MM_ITS ---
EXAMINATION: MM SCREENING DIGITAL BREAST TOMOSYNTHESIS, BILATERAL CLINICAL INFORMATION: Screening. Asymptomatic. COMPARISON: Mammography: Comparison is made with available priors TECHNIQUE: Digital breast mammography with tomosynthesis is performed in both the craniocaudal and mediolateral oblique views along with computer-aided detection (CAD). FINDINGS: There are scattered areas of fibroglandular density. There are no significant masses, abnormal calcifications, or other abnormalities. MM/MM tomosynthesis screening BI IMPRESSION: No mammographic evidence of malignancy. ASSESSMENT: BI-RADS Category 1: Negative RECOMMENDATION: Routine annual mammography screening. 1 year F/U This examination should not preclude the clinical evaluation of a suspicious palpable abnormality. This patient's information was entered into a reminder system with a target due date for their next mammogram. Electronically signed by: Minda Gibbs DO 06/20/2025 02:19 PM MARU
--- OUTSIDE RECORDS SUMMARY | 2025-06-17 10:22 | XMS_ITS | Clinical Summary ---
Author Organization [employer] Address [address] [place] [address] [address] [place] [address] Care Team Providers Care Rigger Up Name Role Phone Unavailable Primary Care Provider [...]
--- OUTSIDE RECORDS SUMMARY | 2025-06-17 10:22 | XMS_ITS | Patient Health Record ---
Author Organization [facility] Address [address] [place] [address] Care Team Providers Care Tractor Engine Assembler Name Role Phone Ny Hoyos Primary Care Provider Unavail able Leland Dickinson Unavailable [phone] Reason For Referral No Information Medications Medication SIG (Take, Route, Frequency, Duration) Notes Start Date End Date Status MiraLax 1 Powder 1 capful in 8 ounces of water [...] HCl 25MG Active Synthroid 175MCG Act gerry Social History Social History Additional Details Category Social Info Options Details Miscellaneous: Marital status: single Occupation: disabled Section Notes: Nonsmoker; no alcohol Nonsmoker; no alcohol Problems Problem Type SNOMED Code ICD Code Onset Dates Problem Status W/U Status Risk Notes Problem Constipation (54748758) Constipation (564.00) Active confirmed Problem Dysphagia (42621450) Dysphagia (787.20) Active confirmed Problem Colon cancer screening (738319378) Colon cancer screening (V76.51) Active confirmed Problem Liver function tests abnormal (685511356) Abnormal liver function tests (790.6) Active confirmed Problem Computed tomography of abdomen abnormal (finding) (30513074668306 107) Abnormal computed tomography of gastrointestinal tract (793.4) Active confirmed Plan Of Treatment Pending Test Test Name Order Date XR BARIUM SWALLOW-ESOPHAGUS 03/17/2014 Future Test Test Name Order Date COLONOSCOPY 03/17/2014 Insurance Providers Payer Name Payer Address Payer Phone Subscriber Number Group Number Insured Name Patient Relationship to Insured Coverage Start Date Coverage End Date [facility] [address] [facility] [id number] LION MARTÍNEZ Self - patient is the insured MEDICAID OF [employer] [address] [place] [phone] [id number] LION MARTÍNEZ Self - patient is the insured Medical (General) History Medical History History ICD Code NIDDM Hypertension Cancer of thyroid--thyroidectomy at [facility] in approx. 2010 Denies [place],CVA,Lung disease,renal disease Constipation Sleep apnea-uses CPAP at [...]
== END 2025-06-17 09:42 | disposition home or self-care (01) ==
LOC: HO.MAMMO 09:41
PROVIDERS: PCP Internal Medicine; Visit Provider Internal Medicine
DX: Z12.31 Encounter for screening mammogram for malignant neoplasm of breast (principal)
CPT/HCPCS: 77063; 77067

== ENCOUNTER → 2025-06-17 11:45 | Outpatient (BNV) | payer OTHER, SELFPAY | PROVIDERS: PCP Internal Medicine; Visit Provider Internal Medicine | DX: Z12.31 Encounter for screening mammogram for malignant neoplasm of breast (principal) | CPT/HCPCS: 77063; 77067 ==

== ENCOUNTER 2025-06-20 09:20 | Outpatient (AMB) | payer OTHER, SELFPAY ==
--- OUTSIDE RECORDS SUMMARY | 2025-06-19 23:59 | XMS_ITS | Continuity of Care Document ---
Author Organization [facility] Address [address] [place] [address], [address] [place] [address]- Care Team Providers Care Digital Media Producer Name Role Phone Cole Talbot MD, Yael Wilson Primary Care Physician [phone] [id number] Date(s): 05/20/25 - 06/19/25 [facility] [address] [place] [address], [address] [place] [address]- Encounter Type: Triage Allergies, Adverse Reactions, Alerts Substance Criticality Severity Reaction Reaction Severity Status levothyroxine 1 Rash Acti ve Grass Active Shrimp rash Active 1Patient has an allergy to generic levothyronxine. Medications Acetaminophen = 500 mg, 0 Refills, Maintenance, 04/22/23 12:08:00 PM EDT, Partial fill upon patient request if theprescription is for a schedule II opioid drug. Start Date: 04/22/23 Status: Ordered Medication Dispense Status: Completed Total Allowed Fills: 1 Fills Dispensed: 0 atorvastatin 20 mg oral tablet 1 tablet = 20 mg, By Mouth, Daily, 0 Refills, Maintenance, 04/22/23 12:08:00 PM EDT, Partial fill upon patient request if the prescription is for a schedule II opioid drug. Start Date: 04/22/23 Status: Ordered Medication Dispense Status: Completed Total Allowed Fills: 1 Fills Dispensed: 0 Azelastine Nasal 2 times a day, 0 Refills, Maintenance, 07/02/17 1:25:32 PM EST Start Date: 07/02/17 Status: Ordered Medication Dispense Status: Completed Total Allowed Fills: 1 Fills Dispensed: 0 Banophen 25 mg oral capsule 1 capsule = 25 mg, By Mouth, 3 times a day, 0 Refills, Maintenance, 02/08/19 10:17:53 AM EDT Start Date: 02/08/19 Status: Ordered Medication Dispense Status: Completed Total Allowed Fills: 1 Fills Dispensed: 0 betamethasone topical dipropionate 0.05% ointment 1 application, Topically, Daily, 1 application Topically Daily at bedtime apply a thin film to external vaginal area, # 15 Gm, 2 Refills, Maintenance, 09/07/20 10:42:00 AM EST, Ointment, [facility]/pharmacy #[id number], Partial fill upon patient request if the prescription is for a schedule II opioid drug., 1 application Topically Daily,Instr:1 application Topically Daily at bedtime apply a thin film to external vaginal area, 166, cm, 09/07/20 10:31:00 EST, Height, 101.5, kg, 09/07/20 10:31:00 EST, Dry Weight Start Date: 09/07/20 Status: Ordered Medication Dispense Status: Completed Quantity: 15.0 Unit: g Total Allowed Fills: 3 Fills Dispensed: 0 betamethasone topical dipropionate 0.05% ointment 1 application, Topically, 2 times a day, daily for 2 - 3 months and then 2 times per week to affected area, # 45 Gm, 1 Refills, Maintenance, 02/08/19 11:09:38 AM EDT, Ointment, [facility]/pharmacy #[id number], 1 application Topically 2 times a day,Instr:daily for 2 - 3 months and then 2 times per week to affected area Start Date: 02/08/19 Status: Ordered Medication Dispense Status: Completed Quantity: 45.0 Unit: g Total Allowed Fills: 2 Fills Dispensed: 0 betamethasone topical valerate 0.1% cream 1 applicator, Topically, 2 times a day, 0 Refills, Maintenance, 02/08/19 10:18:22 AM EDT Start Date: 02/08/19 Status: Ordered Medication Dispense Status: Completed Total Allowed Fills: 1 Fills Dispensed: 0 calcitonin 200 iu/ml injectable solution Subcutaneous Infusion, Every other day, 0 Refills, Maintenance, 08/06/18 9:23:04 AM EST Start Date: 08/06/18 Status: Ordered Medication Dispense Status: Completed Total Allowed Fills: 1 Fills Dispensed: 0 cetirizine 10 mg oral tablet 1 tablet = 10 mg, By Mouth, Daily, # 30 tablet, 0 Refills, Maintenance, 02/08/19 10:18:48 AM EDT, Tablet Start Date: 02/08/19 Status: Ordered Medication Dispense Status: Completed Quantity: 30.0 Unit: tablet Total Allowed Fills: 1 Fills Dispensed: 0 Colace sodium 100 mg oral capsule 1 capsule = 100 mg, By Mouth, 2 times a day, PRN for constipation, # 60 capsule, 0 Refills, Maintenance, 04/17/15 5:08:38 PM EDT, Capsule Start Date: 04/17/15 Stop Date: 05/17/15 Status: Ordered Medication Dispense Status: Completed Quantity: 60.0 Unit: capsule Total Allowed Fills: 1 Fills Dispensed: 0 Cyclobenzaprine = 5 mg, By Mouth, 0 Refills, Maintenance, 04/22/23 12:09:00 PM EDT, Partial fill upon patient request if the prescription is for a schedule II opioid drug. Start Date: 04/22/23 Status: Ordered Medication Dispense Status: Completed Total Allowed Fills: 1 Fills Dispensed: 0 Dicyclomine = 20 mg, 0 Refills, Maintenance, 04/22/23 12:09:00 PM EDT, Partial fill upon patient request if the prescription is for a schedule II opioid drug. Start Date: 04/22/23 Status: Ordered Medication Dispense Status: Completed Total Allowed Fills: 1 Fills Dispensed: 0 enalapril 5 mg oral tablet 1 tablet = 5 mg, By Mouth, Daily, 0 Refills, Maintenance, 01/15/11 10:01:21 AM EDT Start Date: 01/15/11 Status: Ordered Medication Dispense Status: Completed Total Allowed Fills: 1 Fills Dispensed: 0 escitalopram 5 mg oral tablet 2 tablet = 10 mg, By Mouth, Daily, 0 Refills, Maintenance, 08/06/18 9:23:36 AM EST Start Date: 08/06/18 Status: Ordered Medication Dispense Status: Completed Total Allowed Fills: 1 Fills Dispensed: 0 fluocinonide 0.05% topical cream 1 applicator, Topically, 3 times a day, 0 Refills, Maintenance, 08/06/18 9:24:18 AM EST Start Date: 08/06/18 Status: Ordered Medication Dispense Status: Completed Total Allowed Fills: 1 Fills Dispensed: 0 Freestyle Lite Lancets See Instructions, Maintenance, 04/22/23 12:10:00 PM EDT, Supply Start Date: 04/22/23 Status: Ordered Medication Dispense Status: Completed Total Allowed Fills: 1 Fills Dispensed: 0 Freestyle Lite Test Strips Maintenance, 02/08/19 10:19:35 AM EDT, Compound Start Date: 02/08/19 Status: Ordered Medication Dispense Status: Completed Total Allowed Fills: 1 Fills Dispensed: 0 hydrochlorothiazide 25 mg oral tablet 25 mg, 1, tablet, By Mouth, Daily, Refills 0, Maintenance, 07/02/17 1:26:58 PM EST Start Date: 07/02/17 Status: Ordered Medication Dispense Status: Completed Total Allowed Fills: 1 Fills Dispensed: 0 hydrOXYzine hydrochloride 25 mg oral tablet 1 tablet = 25 mg, By Mouth, 4 times a day, 0 Refills, Maintenance, 08/06/18 9:24:56 AM EST Start Date: 08/06/18 Status: Ordered Medication Dispense Status: Completed Total Allowed Fills: 1 Fills Dispensed: 0 Ketotifen Ophthalmic 1 drops, Eyes, Both, Every 8 hours, 0 Refills, Maintenance, 07/02/17 1:27:06 PM EST Start Date: 07/02/17 Status: Ordered Medication Dispense Status: Completed Total Allowed Fills: 1 Fills Dispensed: 0 Lantus 100 u/ml subcutaneous solution Subcutaneous Infusion, 0 Refills, Maintenance, 08/06/18 9:25:41 AM EST Start Date: 08/06/18 Status: Ordered Medication Dispense Status: Completed Total Allowed Fills: 1 Fills Dispensed: 0 loratadine 10 mg oral capsule 1 capsule = 10 mg, By Mouth, Daily, # 10 capsule, 0 Refills, Maintenance, 11/29/11 1:26:01 PM EDT, Capsule Start Date: 11/29/11 Status: Ordered Medication Dispense Status: Completed Quantity: 10.0 Unit: capsule Total Allowed Fills: 1 Fills Dispensed: 0 LORazepam 0.5 mg oral tablet 1 tablet = 0.5 mg, By Mouth, 0 Refills, Maintenance, 02/08/19 10:20:15 AM EDT Start Date: 02/08/19 Status: Ordered Medication Dispense Status: Completed Total Allowed Fills: 1 Fills Dispensed: 0 losartan 25 mg oral tablet 25 mg, 1, tablet, By Mouth, Daily, Refills 0, Maintenance, 08/06/18 9:26:47 AM EST Start Date: 08/06/18 Status: Ordered Medication Dispense Status: Completed Total Allowed Fills: 1 Fills Dispensed: 0 losartan 50 mg oral tablet 50 mg, 1, tablet, By Mouth, Daily, # 30 tablet, Refills 0, Maintenance, 02/08/19 10:20:37 AM EDT Start Date: 02/08/19 Status: Ordered Medication Dispense Status: Completed Quantity: 30.0 Unit: tablet Total Allowed Fills: 1 Fills Dispensed: 0 Metformin By Mouth, 0 Refills, Maintenance, 04/22/23 12:10:00 PM EDT, Partial fill upon patient request if theprescription is for a schedule II opioid drug. Start Date: 04/22/23 Status: Ordered Medication Dispense Status: Completed Total Allowed Fills: 1 Fills Dispensed: 0 mometasone 50 mcg/inh nasal spray 2 sprays, Daily, 0 Refills, Maintenance, 07/02/17 1:27:57 PM EST Start Date: 07/02/17 Status: Ordered Medication Dispense Status: Completed Total Allowed Fills: 1 Fills Dispensed: 0 Myrbetriq 50 mg oral tablet, extended release See Instructions, SUKHDEEP MCKEONA TODOS [place] GALVEZ, # 90 tablet, 3 Refills, Maintenance, 10/25/24 8:20:00 AM EDT, [facility]/pharmacy #[id number], 166, cm, 03/23/24 9:28:00 EDT, Height Start Date: 10/25/24 Status: Ordered Medication Dispense Status: Completed Quantity: 90.0 Unit: tablet Total Allowed Fills: 4 Fills Dispensed: 0 naproxen 500 mg oral delayed release tablet 1 tablet = 500 mg, By Mouth, 2 times a day, 0 Refills, Maintenance, 08/06/18 9:27:32 AM EST Start Date: 08/06/18 Status: Ordered Medication Dispense Status: Completed Total Allowed Fills: 1 Fills Dispensed: 0 Prilosec OTC = 20 mg, By Mouth, Daily, 0 Refills, Maintenance, 01/15/11 10:02:23 AM EDT Start Date: 01/15/11 Status: Ordered Medication Dispense Status: Completed Total Allowed Fills: 1 Fills Dispensed: 0 Suprep Bowel Prep Kit oral liquid See Instructions, bowel preparation, # 1 kit, 0 Refills, Maintenance, 01/17/22 3:47:00 PM EDT, [facility]/pharmacy #[id number], Partial fill upon patient request if the prescription is for a schedule II opioid drug., bowel preparation, 166, cm, 01/17/22 15:35:00 EDT, Height, 101.5, kg, 09/07/20 10:31:00 EST, DryWeight Start Date: 01/17/22 Status: Ordered Medication Dispense Status: Completed Quantity: 1.0 Unit: kit Total Allowed Fills: 1 Fills Dispensed: 0 Synthroid 0.175 mg oral tablet See Instructions, TOME 1 TABLETA POR VIA ORAL TODOS [place] GALVEZ, # 90 tablet, 3 Refills, Maintenance, 03/03/25 7:15:00 AM EDT, [id number], 166, cm, 03/23/24 9:28:00 EDT, Height Start Date: 03/03/25 Status: Ordered Medication Dispense Status: Completed Quantity: 90.0 Unit: tablet Total Allowed Fills: 1 Fills Dispensed: 0 Tacrolimus 0 Refills, Maintenance, 04/22/23 12:11:00 PM EDT, Partial fill upon patient request if the prescription is for a schedule II opioid drug. Start Date: 04/22/23 Status: Ordered Medication Dispense Status: Completed Total Allowed Fills: 1 Fills Dispensed: 0 Tramadol = 50 mg, By Mouth, 0 Refills, Maintenance, 04/22/23 12:12:00 PM EDT, Partial fill upon patient request if the prescription is for a schedule II opioid drug. Start Date: 04/22/23 Status: Ordered Medication Dispense Status: Completed Total Allowed Fills: 1 Fills Dispensed: 0 Trulicity Pen = 0.75 mg, Subcutaneous Infusion, 0 Refills, Maintenance, 04/22/23 12:13:00 PM EDT, Partial fill upon patient request if the prescription is for a schedule II opioid drug. Start Date: 04/22/23 Status: Ordered Medication Dispense Status: Completed Total Allowed Fills: 1 Fills Dispensed: 0 Trulicity Pen 0.75 mg/0.5 mL subcutaneous solution Subcutaneous Infusion, 0 Refills, Maintenance, 08/06/18 9:28:48 AM EST Start Date: 08/06/18 Status: Ordered Medication Dispense Status: Completed Total Allowed Fills: 1 Fills Dispensed: 0 Problem List Condition Confirmation Course Effective Dates Status Health St atus Informant Cystocele Confirmed Active Dyspareunia Confirmed Active Obese class II Confirmed Active Papillary carcinoma of thyroid Confirmed Active Eri Aldana N/CP [phone] Confirmed 02/25/18 Active UI - Urinary incontinence Confirmed Active Social History Social History Type Response Smoking Status Never smoker entered on: 04/11/14 Sex Sex Representation Female (finding) Patient Care team information Care Team Personnel Name: Cole Talbot MD , Yael Wilson Position: Reference Physician Member Role: PCP Address: [address] [place] [address] [address] [place] [address] Telecom: Care Team Related Persons Name: VIKKI MCLAIN Name: YOVANNY WAGGONER Insurance Providers Guarantor name: LION MARTÍNEZ Health Plan Information #: 1 Payer: [facility] [employer] Payer Identifier: NA Member Number: [id number] Group Number: [id number] Subscriber Identifier: NA Relationship to Subscriber: self Coverage Type: Medicare Managed Care (Includes Medicare Advantage Plans) Coverage Verification Date: NA Telecom: NA Address:
--- NOTE | 2025-06-20 09:22 | MHC.OFFVIS ---
Vital Signs 06/20/25 09:26 Height 5 ft 5 in Weight 238 lb 8.642 oz BMI 39.7 BP 154/84 H Blood Pressure Location Lt brachial Position Sitting Pulse 63 Pulse Source Pulse Oximeter Pulse Oximetry (%) 97 Oxygen Delivery Method Room Air Intake Visit Reasons: T2DM Intake Note: Patient present today for Type 2 Diabetes Mellitus Last Diabetic eye exam: Last exam was on 12/07/24 by [facility] Last Podiatry Visit: Patient has upcoming appt next week. Random Glucose: 88 mg/dl HgA1C: 7.4% Yard Supervisor Cotton Gin Required: Yes Yard Supervisor Cotton Gin Language: Employment Evaluator/Case Manager Services: Yard Supervisor Cotton Gin Present Yard Supervisor Cotton Gin Name: Mina [id number] Information Interpreted: non-clinical & clinical Accompanied by: Self / Same As Patient Allergies enalapril (ENALAPRIL) Allergy (Intermediate, Verified 06/20/25 09:30) Cough cephalexin (From KEFLEX) Allergy (Mild, Verified 06/20/25 09:30) rash ciprofloxacin (CIPROFLOXACIN) Allergy (Mild, Verified 06/20/25 09:30) HIVES,RASH levothyroxine sodium (LEVOTHYROXINE SODIUM) Allergy (Mild, Verified 06/20/25 09:30) RASH WITH GENERIC MED nitrofurantoin (NITROFURANTOIN) Allergy (Mild, Verified 06/20/25 09:30) RASH Penicillins (PENICILLINS) Allergy (Mild, Verified 06/20/25 09:30) RASH sulfamethoxazole (From BACTRIM) Allergy (Mild, Verified 06/20/25 09:30) rash trimethoprim (From BACTRIM) Allergy (Mild, Verified 06/20/25 09:30) rash corn Allergy (Verified 06/20/25 09:30) Itching ALL GENERIC MEDS Allergy (Mild, Uncoded 06/20/25 09:30) Rash SHRIMP Allergy (Unknown, Uncoded 06/20/25 09:30) Unknown HPI HPI T2DM: Details: Patient is 69-year-old female who presents today for a follow-up regarding her diabetes. She has a significant past medical history of hypertension, hyperlipidemia, GERD, depression, anxiety, polyarthralgia , acquired hypothyroidism s/p papillary thyroid carcinoma and obesity. Phone machine packager used today. Mina Way: DM-She was diagnosed with type 2 diabetes in 2012. Her A1c was 8.8 and today it is 7.4. She is currently on Lantus 25 units metformin 500 mg twice a day, Trulicity 4.5mg/week. -States the higher dose of the metformin at 1000 mg twice a day made her feel dizzy/off. She states she never checked her blood sugar when she was dizzy. She reduced the dose of metformin and felt a better. She states that this was a couple of months ago and never called us. She states her blood sugars have 90-130. She states she checks it fasting and after eating. The highest it has been has been 130. She does check it 1-2 a day. No glucose readings less than 70. She states that her blood sugars overall seem really well-controlled. She has been eating healthier and walking more. She denies any hyper or hypoglycemic events. -She Intolerant of Jardiance due to uncontrollable urination and diarrhea. Adamantly refuses a CGM. She did not bring in her glucometer. States that she has not needed to correct any hypoglycemic events. States that if she would she would use candy She has an upcoming appointment with her after school program assistant in May. She states the zigzag machine operator keeps cancelling but she would like to see someone. She denies any difficulty feeling her feet. States that she does not have pain but her toenails are often thickened especially the right great toenail. CV: Blood pressure today in the office is 154/82.. She is on losartan 100 mg and hctz 25 mg. she did not yet take today. Cholesterol is controlled with atorvastatin 80 mg and Zetia 10 mg. Last LDL 104. [facility] Medical History (Updated 05/20/25 @ 00:00 by Background Mikaela) Tinea pedis of right foot Paresthesia of bilateral legs Hypersomnia Snorings Isolated tremor of head Diabetes mellitus DM2 (diabetes mellitus, type 2) Pain of left thumb Right upper quadrant pain AC (acromioclavicular) arthritis Hypertension Elevated LFTs Osteoarthritis (arthritis due to wear and tear of joints) Physical exam Colon cancer screening Allergic reaction Back pain Right arm pain Vulvar irritation Encounter for annual routine gynecological examination Impacted cerumen of left ear Rash Lower back pain Abnormal laboratory test result Back pain Mild recurrent major depression Thyroid cancer Depression Anxiety Sacroiliac joint disease Lumbar spondylosis GERD without esophagitis Acquired hypothyroidism Benign essential hypertension Constipation Obesity (BMI 30-39.9) 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 Mother Diabetes Sister Lung cancer Brother H/O heart surgery Diabetes Son Epilepsy Social History Household Members: Significant Other Housing: Apartment Alcohol intake: never Patient Tobacco Use Status: Never used Tobacco e-Cigarette/Vaping Use: Never Used Second Hand Smoke Exposure: No service: No Current occupational status: disabled Gender identity: Female Cognitive needs: Yes Hearing needs: No Vision needs: No Female Reproductive History Menstrual Age of Menarche: 13 Physical Exam Vital Signs: Last Vital Signs Pulse 63 06/20/25 09:26 BP 154/84 H 06/20/25 09:26 Pulse Ox 97 06/20/25 09:26 Oxygen Delivery Method Room Air 06/20/25 09:26 BMI result Body Mass Index 39.7 Const Orientation/consciousness: patient oriented x3 HEENT Ears: hearing grossly normal bilaterally Neck Thyroid: Thyroid normal Lymphatic: no lymphadenopathy noted Resp Auscultation: clear to auscultation bilaterally Cardio Rate: regular rate Rhythm: regular rhythm Heart sounds: S1 normal heart sound present and S2 normal heart sound present GI Inspection: Yes normal to inspection Palpation (GI): Soft to palpation and Other GI palpation findings present (nontender, no cva tenderness) Auscultation: normoactive bowel sounds Rectal Exam - Female: deferred Skin General skin exam: no rashes or lesions noted Neuro General: patient oriented x3, gait normal and no focal motor deficits Results AMB Hemoglobin A1c AMB Hemoglobin A1c 7.4 % Last Edit by DOM Leigh on 06/20/25 09:51 Results Reviewed Results Reviewed: Laboratory Last Values Glucose (Clinic) 88 mg/dL (60-115) 06/20/25 09:32 Laboratory Tests 12/24/24 12/29/24 03/15/25 11:13 17:21 10:11 Creatinine 0.89 Estimated GFR > 60 Hgb A1c (Clinic) 8.1 H Triglycerides 86 Cholesterol 161 LDL Cholesterol, Calc 104 H HDL Cholesterol 40 L 03/25/25 10:51 Creatinine Estimated GFR Hgb A1c (Clinic) 8.8 H Triglycerides Cholesterol LDL Cholesterol, Calc HDL Cholesterol Assessment & Plan Assessment & Plan (1) Uncontrolled type 2 diabetes mellitus with hyperglycemia, with long-term current use of insulin: Code(s): E11.65 - Type 2 diabetes mellitus with hyperglycemia; Z79.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 She does not wish to modify any of her regimen as she feels that she is getting even better with her diet. We will continue the current treatment plan and follow up in 3 months. Advised her to complete labs prior to appointment. She will let me know if she has any hyper or hypoglycemic events before then. (2) Essential hypertension: Code(s): I10 - Essential (primary) hypertension Category: Medical Plan: Encouraged compliance of her blood pressure regimen. We discussed uncontrolled hypertension does increase her risk of a heart attack and stroke along with increased risk of kidney disease etc. 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 Medications: New pen needle, diabetic Use daily As directed 100 ea 3RF metformin 500 mg PO BID 180 tabs 3RF Refilled dulaglutide (Trulicity) 4.5 mg (0.5 mL) subcut QWEEK 2 mL 11RF Lantus Solostar U-100 Insulin (insulin glargine) 25 units (0.25 mL) subcut DAILY 15 mL 5RF NS blood sugar diagnostic (FreeStyle Lite Strips) As directed tests 2X/day 100 ea 6RF lancets (FreeStyle Lancets) use BID as directed to check blood glucose 100 ea 3RF Discontinued metformin Discontinued Reason: Doctor's Order 1,000 mg PO BID 180 tabs 2RF Coding Level of Care Code Est Pt Level 4 (16850) Diagnoses Uncontrolled type 2 diabetes mellitus with hyperglycemia, with long-term current use of insulin E11.65; Z79.4 Essential hypertension I10
[2025-06-20 09:26] VITALS: BP 154/84; PULSE 63; O2SAT 97; BMI 39.7
[2025-06-20 09:39] LABS: Glucose, Whole Blood 88 mg/dL (60-115)
--- OUTSIDE RECORDS SUMMARY | 2025-06-20 10:30 | XMS_ITS | Patient Health Record ---
Author Organization [facility] Address [address] [place] [address] Care Team Providers Care Manager New Product Name Role Phone Ny Hoyos Primary Care Provider Unavail able Leland Dickinson Unavailable [phone] Reason For Referral No Information Medications Medication [...] Status W/U Status Risk Notes Problem Constipation (28933241) Constipation (564.00) Active confirmed Problem Dysphagia (21551298) Dysphagia (787.20) Active confirmed Problem Colon cancer screening (517594266) Colon cancer screening (V76.51) Active confirmed Problem Liver function tests abnormal (323091656) Abnormal liver function tests (790.6) Active confirmed Problem Computed tomography of abdomen abnormal (finding) (91242959597336 107) Abnormal computed tomography of gastrointestinal tract (793.4) Active confirmed Plan Of Treatment Pending Test Test Name Order Date XR BARIUM SWALLOW-ESOPHAGUS 03/17/2014 Future Test Test Name Order Date COLONOSCOPY 03/17/2014 Insurance Providers Payer Name Payer Address Payer Phone Subscriber Number Group Number Insured Name Patient Relationship to Insured Coverage Start Date Coverage End Date [facility] [address] [facility] [place] [id number] LION MARTÍNEZ Self - patient is the insured MEDICAID OF [employer] [address] [place] [address] [id number] LION MARTÍNEZ Self - patient is the insured Medical (General) History Medical History History ICD Code NIDDM Hypertension Cancer of thyroid--thyroidectomy at [facility] in approx. 2010 Denies [place],CVA,Lung disease,renal disease Constipation Sleep apnea-uses CPAP at [...]
== END 2025-06-20 09:52 | disposition home or self-care (01) ==
LOC: HO.ENCR 09:21
PROVIDERS: PCP Internal Medicine; Visit Provider Physician Assistant
DX: Z13.9 Encounter for screening, unspecified (principal); E11.65 Type 2 diabetes mellitus with hyperglycemia; Z79.4 Long term (current) use of insulin; I10 Essential (primary) hypertension

== ENCOUNTER → 2025-06-20 09:20 | Outpatient (BNVA) | payer OTHER, SELFPAY | PROVIDERS: PCP Internal Medicine; Visit Provider Physician Assistant | DX: E11.65 Type 2 diabetes mellitus with hyperglycemia (principal); I10 Essential (primary) hypertension; E78.5 Hyperlipidemia, unspecified; Z79.84 Long term (current) use of oral hypoglycemic drugs; Z79.4 Long term (current) use of insulin | CPT/HCPCS: 82947; 83036; 99212 ==

== ENCOUNTER 2025-07-14 09:45 | Outpatient (AMB) | payer OTHER, SELFPAY ==
[2025-07-14 09:56] VITALS: BMI 39.6
--- NOTE | 2025-07-14 09:56 | MHC.OFFVIS ---
Vital Signs 07/14/25 09:56 Height 5 ft 5 in Weight 238 lb BMI 39.6 Intake Visit Reasons: F/U Routine Diabetic Nail Care Intake Note: Crystal is a 69 year old female who presents to the office today for a 9 week follow up weeks for routine nail care and CT scan results. Pt states she was not contacted by radiology to schedule her CT scan appointment. She reports that her nails are doing good. No questions or concerns at this time. Allergies enalapril (ENALAPRIL) Allergy (Intermediate, Verified 07/14/25 09:57) Cough cephalexin (From KEFLEX) Allergy (Mild, Verified 07/14/25 09:57) rash ciprofloxacin (CIPROFLOXACIN) Allergy (Mild, Verified 07/14/25 09:57) HIVES,RASH levothyroxine sodium (LEVOTHYROXINE SODIUM) Allergy (Mild, Verified 07/14/25 09:57) RASH WITH GENERIC MED nitrofurantoin (NITROFURANTOIN) Allergy (Mild, Verified 07/14/25 09:57) RASH Penicillins (PENICILLINS) Allergy (Mild, Verified 07/14/25 09:57) RASH sulfamethoxazole (From BACTRIM) Allergy (Mild, Verified 07/14/25 09:57) rash trimethoprim (From BACTRIM) Allergy (Mild, Verified 07/14/25 09:57) rash corn Allergy (Verified 07/14/25 09:57) Itching ALL GENERIC MEDS Allergy (Mild, Uncoded 06/20/25 09:30) Rash SHRIMP Allergy (Unknown, Uncoded 06/20/25 09:30) Unknown HPI Comments Details: The patient is a 69 year old female presenting for routine foot care, nail debridement, and follow-up on persistent foot pruritus. She has been using Clotrimazole cream for cutaneous itching and flaking, but reports that the pruritus is still present but has reduced in nature. Additionally, the patient has a history of feeling as though something was in her foot, and it is noted that there was a previous attempt to remove glass. A CAT scan was ordered to evaluate for a retained foreign body, but this has not yet been performed. The patient also has a history of varicose veins and reports no new injuries or concerns at this visit. She states she experiences discomfort to the toes when the nails are too longer thickened. [facility] Medical History (Updated 07/24/25 @ 12:03 by Janice Wiggins DPM) Nail dystrophy Nail disorder Tinea unguium PVD (peripheral vascular disease) Tinea pedis of right foot Paresthesia of bilateral legs Hypersomnia Snorings Isolated tremor of head Diabetes mellitus DM2 (diabetes mellitus, type 2) Pain of left thumb Right upper quadrant pain AC (acromioclavicular) arthritis Hypertension Elevated LFTs Osteoarthritis (arthritis due to wear and tear of joints) Physical exam Colon cancer screening Allergic reaction Back pain Right arm pain Vulvar irritation Encounter for annual routine gynecological examination Impacted cerumen of left ear Rash Lower back pain Abnormal laboratory test result Back pain Mild recurrent major depression Thyroid cancer Depression Anxiety Sacroiliac joint disease Lumbar spondylosis GERD without esophagitis Acquired hypothyroidism Benign essential hypertension Constipation Obesity (BMI 30-39.9) Dyslipidemia superintendent 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 Mother Diabetes Sister Lung cancer Brother H/O heart surgery Diabetes Son Epilepsy Social History Household Members: Significant Other Housing: Apartment Alcohol intake: never Patient Tobacco Use Status: Never used Tobacco e-Cigarette/Vaping Use: Never Used Second Hand Smoke Exposure: No service: No Current occupational status: disabled Gender identity: Female Cognitive needs: Yes Hearing needs: No Vision needs: No Female Reproductive History Menstrual Age of Menarche: 13 Review of Systems Const Details: - Integumentary: Reports persistent pruritus of the feet, but reduced in nature. Reports thickened, elongated, discolored toenails x10. All systems reviewed & are unremarkable except as noted in HPI and below Physical Exam Vital Signs: BMI result Body Mass Index 39.6 Extrem Other: B/L LE Focused Physical Exam: Derm: No open lesions, abrasions, or wounds noted. Toenails x10 noted to be slightly thickened and elongated with mild discoloration. No ecchymosis noted. No erythema noted to the dorsal midfoot of the right foot. No clinical signs of infection. No maceration or peeling of skin noted. No hyperkeratotic areas noted. Vasc: DP pulses palpable. PT pulses nonpalpable. CFT < 3 secs. Temperature gradient warm to warm. Varicosities noted, worse to the LLE. Minimal edema noted. Pedal hair absent. Neuro: Protective sensations grossly intact to light touch and monofilament testing. MSK: Discomfort noted to the toes due to thickened and elongated toenails. No Pain on palpation to the plantar lateral aspect of the left foot in the area of the previous foreign body (glass). ROM of the forefoot, hindfoot, and ankles WNL. No crepitus or fluctuance noted. Mild antalgic gait noted unassisted. No other gross abnormalities noted. Class B findings noted. Office Procedures AMB Debridement/Avulsion Podia Details: Debrided toenails x10 using sterile nail Nipper and Dremel without incidents. 79487-Ytzfonhgges of Nail 6+ Procedure code (CPT) selection complete Diabetic Foot Exam G9226 - Diabetic Foot Exam (62670-bvpdmiaqwsz of toenails x10) Results Reviewed Results Reviewed: Laboratory Tests 06/20/25 09:37 Hgb A1c (Clinic) 7.4 H Ordered left foot CT scan to be obtained prior to next visit. Podiatry read of Left foot xray (11/29/23): On oblique view calcification/bone abnormality noted on the lateral aspect of the CCJ. Bone spur noted to the posterior and plantar aspect of the calcaneus. Accessory bone noted to the medial aspect of the TNJ. Left foot xray (11/29/23): FINDINGS: No evidence of acute fracture or malalignment. Redemonstrated accessory navicular bone and os peroneum. Joint spaces are preserved. Normal bone mineralization. Unchanged moderate posterior and small plantar calcaneal enthesophytes. Unchanged soft tissue prominence of the lateral/forefoot overlying the fifth metatarsal heads, may be physiologic. IMPRESSION: 1. No evidence of acute fracture or malalignment of the left foot or significant interval change compared to 11/24/2023. 2. Unchanged moderate posterior and small plantar calcaneal enthesophytes. Assessment & Plan Assessment & Plan (1) Uncontrolled type 2 diabetes mellitus with hyperglycemia, with long-term current use of insulin: Code(s): E11.65 - Type 2 diabetes mellitus with hyperglycemia; Z79.4 - superintendent terminal (current) use of insulin Category: Medical (2) Paresthesia of bilateral legs: Code(s): R20.2 - Paresthesia of skin Category: Medical (3) Foreign body in left foot: Code(s): S90.852A - Superficial foreign body, left foot, initial encounter Category: Medical Qualifiers: Encounter type: subsequent encounter Qualified Code(s): S90.852D - Superficial foreign body, left foot, subsequent encounter (4) Tinea pedis of right foot: Code(s): B35.3 - Tinea pedis Category: Medical (5) PVD (peripheral vascular disease): Code(s): I73.9 - Peripheral vascular disease, unspecified Category: Medical (6) Tinea unguium: Code(s): B35.1 - Tinea unguium Category: Medical (7) Nail disorder: Code(s): L60.9 - Nail disorder, unspecified Category: Medical (8) Nail dystrophy: Code(s): L60.3 - Nail dystrophy Category: Medical Plan Patient was informed and verbally consented to the use of an ambient scribe for clinic note documentation during this visit. I advised the patient to continue using the topical cream, as it will help resolve the pruritus and flaking. I advised her to continue with routine nail care every 9 weeks. Advised patient to continue diabetic management as per PCP. - Debrided toenails x10. - Advised patient to continue using clotrimazole cream. - Advised patient to wear supportive shoe gear, avoid barefoot walking, and avoid tight-fitting shoes. - Advised patient to continue diabetic management as per PCP. - Ordered new labs to be performed prior to next visit. RTC in 9 weeks. Orders: Orders Comprehensive Met. Panel 07/14/25 E11.65 - Type 2 diabetes mellitus with hyperglycemia, Z79.4 - superintendent terminal (current) use of insulin Hemoglobin A1c 07/14/25 E11.65 - Type 2 diabetes mellitus with hyperglycemia, Z79.4 - penitentiary (current) use of insulin Complete Blood Count Auto Diff 07/14/25 E11.65 - Type 2 diabetes mellitus with hyperglycemia, Z79.4 - penitentiary (current) use of insulin Coding Level of Care Code Est Pt Level 3 (48071) Diagnoses Uncontrolled type 2 diabetes mellitus with hyperglycemia, with long-term current use of insulin E11.65; Z79.4 Paresthesia of bilateral legs R20.2 Foreign body in left foot, subsequent encounter S90.852D Encounter type: subsequent encounter Tinea pedis of right foot B35.3 PVD (peripheral vascular disease) I73.9 Tinea unguium B35.1 Nail disorder L60.9 Nail dystrophy L60.3 CPT Codes Skin Debridement - CPT: 32304-Tlgdxfzlnjd of Nail 6+ ([id number]) Diabetic Foot Exam - CPT: G9226 - Diabetic Foot Exam ([id number]) Time Spent (min) 28 Comment 8 mins for procedure
--- OUTSIDE RECORDS SUMMARY | 2025-07-14 11:36 | XMS_ITS | Patient Health Record ---
Author Organization [facility] Address [address] [place] [address] Care Team Providers Care Knock Up Assembler Name Role Phone Ny Hoyos Primary Care Provider Unavail able Leland Dickinson Unavailable [phone] Reason For Referral No Information Medications Medication [...] Status W/U Status Risk Notes Problem Constipation (13559513) Constipation (564.00) Active confirmed Problem Dysphagia (95838585) Dysphagia (787.20) Active confirmed Problem Colon cancer screening (668060393) Colon cancer screening (V76.51) Active confirmed Problem Liver function tests abnormal (337580285) Abnormal liver function tests (790.6) Active confirmed Problem Computed tomography of abdomen abnormal (finding) (87216383388416 107) Abnormal computed tomography of gastrointestinal tract (793.4) Active confirmed Plan Of Treatment Pending Test Test Name Order Date XR BARIUM SWALLOW-ESOPHAGUS 03/17/2014 Future Test Test Name Order Date COLONOSCOPY 03/17/2014 Insurance Providers Payer Name Payer Address Payer Phone Subscriber Number Group Number Insured Name Patient Relationship to Insured Coverage Start Date Coverage End Date [facility] [address] [place] [phone] [id number] LION MARTÍNEZ Self - patient is the insured MEDICAID OF [place] [address] [place] [phone] [id number] LION MARTÍNEZ Self - patient is the insured Medical (General) History Medical History History ICD Code NIDDM Hypertension Cancer of thyroid--thyroidectomy at [facility] in approx. 2010 Denies [place],CVA,Lung disease,renal disease Constipation Sleep apnea-uses CPAP at [...]
== END 2025-07-14 10:08 | disposition home or self-care (01) ==
LOC: HO.HPODS 09:46
PROVIDERS: PCP Internal Medicine; Visit Provider Student in an Organized Health Care Education/Training Program
DX: E11.65 Type 2 diabetes mellitus with hyperglycemia (principal); Z79.4 Long term (current) use of insulin; R20.2 Paresthesia of skin; S90.852D Superficial foreign body, left foot, subsequent encounter; B35.3 Tinea pedis; I73.9 Peripheral vascular disease, unspecified; B35.1 Tinea unguium; L60.9 Nail disorder, unspecified; L60.3 Nail dystrophy
CPT/HCPCS: 11721; 99213; G9226

== ENCOUNTER → 2025-07-14 09:45 | Outpatient (BNVA) | payer OTHER, SELFPAY | PROVIDERS: PCP Internal Medicine; Visit Provider Student in an Organized Health Care Education/Training Program | DX: E11.65 Type 2 diabetes mellitus with hyperglycemia (principal); Z79.4 Long term (current) use of insulin; R20.2 Paresthesia of skin; S90.852D Superficial foreign body, left foot, subsequent encounter; B35.3 Tinea pedis; I73.9 Peripheral vascular disease, unspecified; B35.1 Tinea unguium; L60.9 Nail disorder, unspecified; L60.3 Nail dystrophy; X58.XXXA Exposure to other specified factors, initial encounter; Y93.9 Activity, unspecified; Y92.9 Unspecified place or not applicable; Y99.9 Unspecified external cause status | CPT/HCPCS: 11721; 99212 ==